=== PATIENT | female | born 1955 | race Hispanic/Latino ===

== ENCOUNTER 2018-12-25 22:15 | Emergency (ER) | payer MEDICARE, BC ==
[2018-12-25] MEDS ORDERED: METOCLOPRAMIDE 10 MG TAB PO ONE (22:35)
--- NOTE | 2018-12-25 22:39 | Emergency Department Report ---
ED General Adult HPI - General Chief complaint: Altered Mental Status Stated complaint: AMS Time Seen by Provider: 12/25/18 22:26 Source: patient, EMS ( EMS documentation not available at time of chart dictation ), RN notes reviewed, old records reviewed Mode of arrival: Stretcher Limitations: No Limitations - History of Present Illness Initial comments: This is a 63-year-old female. The patient has a history of reported COPD and is supposed to be on chronic home oxygen therapy. She also has a history of psychiatric disease and hypertension. She is an outpatient psychiatric facility in a voluntary basis, "to get myself right." The patient was seen in this department yesterday for nonspecific symptoms, had an extensive workup, and was subsequently discharged. Today, the patient is sent to the ER by her psychiatric facility for medical clearance. She is not using oxygen at the psychiatric facility as she does not have a tank with her, and she did not tell the psychiatric facility that she is supposed to be on home oxygen. Apparently, she was having episodes of nonsensical speech, headache, hypoxia, and reported unsteady gait. All of the symptoms have resolved at this time, with the exception of mild headache. The patient indicates the headache is not sudden or thunderclap in nature. The headache is not maximal intensity within an hour. There is no vomiting. The patient denies additional complaints. She states that her home oxygen tank is at storage, at her house, in [place], [place] She can't tell me why she did not endorse her need for chronic oxygen therapy with this psychiatric facility. In any event, the patient does not endorse homicidality or suicidality. She denies additional physical pain. She states that she thinks that she can call for facility in the morning and rent oxygen or by oxygen. She is requesting to stay in the ER overnight. Radiation: other Quality: other Consistency: other Improves with: other Worsens with: other - Related Data Home Medications Medication Instructions Recorded Confirmed Last Taken Duloxetine HCl [Cymbalta] 60 mg PO 0800,1700 12/24/18 12/26/18 12/23/18 raNITIdine HCl [Zantac] 150 mg PO BID 12/24/18 12/25/18 12/25/18 08:00 Mirtazapine [Remeron 30mg TAB] 30 mg PO QDAY 09/12/26/18 12/25/18 08:00 Suboxone 2 mg-0.5 mg SL Film 1 mg SL QDAY 12/25/18 12/26/18 12/25/18 08:00 Tizanidine HCl [Zanaflex 4mg CAP] 2 mg PO PRN PRN 12/25/18 12/26/18 12/25/18 08:00 lamoTRIgine [LaMICtal] 100 mg PO QDAY 12/25/18 12/25/18 12/25/18 08:00 Allergies Allergy/AdvReac Type Severity Reaction Status Date / Time No Known Allergies Allergy Verified 12/26/18 00:02 ED Review of Systems ROS: Stated complaint: AMS Other details as noted in HPI Constitutional: denies: fever Eyes: denies: eye discharge ENT: denies: congestion Respiratory: shortness of breath (chronic) Cardiovascular: denies: syncope Gastrointestinal: denies: abdominal pain Genitourinary: other (negative urine yesterday). denies: dysuria Neurological: headache Psychiatric: anxiety. denies: auditory hallucinations, visual hallucinations, homicidal thoughts, suicidal thoughts ED Past Medical Hx - Past Medical History Hx Hypertension: Yes Hx GERD: Yes Hx Psychiatric Treatment: Yes (ANXIETY) Hx Asthma: Yes Hx COPD: Yes Additional medical history: HIGH CHOLESTEROL - Surgical History Additional Surgical History: LAZARO KNEE SURGERY - Social History Smoking Status: Never Smoker Substance Use Type: Other - Medications Home Medications: Home Medications Medication Instructions Recorded Confirmed Last Taken Type Duloxetine HCl [Cymbalta] 60 mg PO 0800,1700 12/24/18 12/26/18 12/23/18 History raNITIdine HCl [Zantac] 150 mg PO BID 12/24/18 12/25/18 12/25/18 08:00 History Mirtazapine [Remeron 30mg TAB] 30 mg PO QDAY 12/25/18 12/26/18 12/25/18 08:00 History Suboxone 2 mg-0.5 mg SL Film 1 mg SL QDAY 12/25/18 12/26/18 12/25/18 08:00 History Tizanidine HCl [Zanaflex 4mg CAP] 2 mg PO PRN PRN 12/25/18 12/26/18 12/25/18 08:00 History lamoTRIgine [LaMICtal] 100 mg PO QDAY 12/25/18 12/25/18 12/25/18 08:00 History ED Physical Exam - General Limitations: No Limitations General appearance: alert, anxious - Head Head exam: Present: atraumatic, normocephalic - Eye Eye exam: Present: normal appearance, EOMI. Absent: nystagmus - ENT ENT exam: Present: normal exam, normal orophraynx, mucous membranes moist, normal external ear exam - Neck Neck exam: Present: normal inspection, full ROM. Absent: tenderness, meningismus - Respiratory Respiratory exam: Present: normal lung sounds bilaterally, decreased breath sounds. Absent: respiratory distress - Cardiovascular Cardiovascular Exam: Present: regular rate, normal rhythm, normal heart sounds. Absent: bradycardia, tachycardia, irregular rhythm, systolic murmur, diastolic murmur, rubs, gallop - GI/Abdominal GI/Abdominal exam: Present: soft. Absent: distended, tenderness, guarding, rebound, rigid, pulsatile mass - Extremities Exam Extremities exam: Present: normal inspection, full ROM, other (2+ pulses noted in the bilateral upper, lower extremities. There is no long bone tenderness. Musculoskeletal compartments are soft. The pelvis is stable.). Absent: pedal edema, joint swelling, calf tenderness - Back Exam Back exam: Present: normal inspection, full ROM. Absent: tenderness, CVA tenderness (R), CVA tenderness (L), paraspinal tenderness, vertebral tenderness - Neurological Exam Neurological exam: Present: alert, oriented X3, normal gait, other (there is no facial droop. The tongue is midline. Extraocular movements are intact b ilaterally. Patient speaking in full complete sentences. Shoulder shrug is intact bilaterally. Hearing is grossly intact bilaterally. Visual acuity intact to finger counting and color perception at a close distance. 5/5 strength 4 extremities. Sensation intact to light touch in 4 extremities.). Absent: motor sensory deficit - Psychiatric Psychiatric exam: Present: anxious. Absent: homicidal ideation, suicidal ideation - Skin Skin exam: Present: warm, dry, intact, normal color. Absent: rash ED Course Vital Signs 12/25/18 12/25/18 12/25/18 22:20 22:35 22:46 Temperature 98.7 F Pulse Rate 87 Respiratory 18 18 Rate Blood Pressure 138/62 Blood Pressure [Right] O2 Sat by Pulse 97 98 Oximetry 09/12/26/18 12/26/18 23:00 00:00 01:00 Temperature Pulse Rate 82 83 80 Respiratory 12 11 L 12 Rate Blood Pressure 117/32 119/49 129/45 Blood Pressure [Right] O2 Sat by Pulse 96 95 94 Oximetry 12/26/18 12/26/18 12/26/18 02:00 03:00 04:00 Temperature Pulse Rate 80 84 Respiratory 13 15 Rate Blood Pressure 126/50 129/43 129/43 Blood Pressure [Right] O2 Sat by Pulse 98 97 92 Oximetry 12/26/18 12/26/18 12/26/18 05:00 06:00 09:02 Temperature Pulse Rate 79 Respiratory 18 Rate Blood Pressure 129/43 129/43 Blood Pressure 116/58 [Right] O2 Sat by Pulse 98 94 95 Oximetry - Reevaluation(s) Reevaluation #1: 12/25/18 23:02 Differential diagnosis, including not limited to: COPD, oxygen dependence, medical clearance Assessment and plan: 63-year-old female, with resolved symptoms, likely secondary to not having her required chronic home oxygen therapy. The patient i s afebrile with reassuring vital signs. He is clinically sober at this time. She walks with a steady gait. Had extensive laboratory study and negative CAT scan of the brain yesterday. The symptoms that were documented do not appear to be present at this time, there'll likely be expected natural history of the patient not having the oxygen that she requires. We will obtain appropriate screening laboratory studies, EKG, x-ray of the chest. K Cameron consult has been requested. Patient does not meet criteria for hospitalization. She is not meet criteria for involuntary psychiatric hold. Case management will need to figure out and coordinate the way to safely discharge the patient with home oxygen. Reevaluation #2: 12/26/18 00:00 Patient resting comfortably, and in no acute distress. Screening laboratory studies unremarkable. The patient does not appear to have an emergent medical condition at this time. Most of her home medications have been continued. Case management evaluation is pending. Reevaluation #3: 12/26/18 01:26 No acute distress. Resting comfortably. Outpatient medications reconciled and continued as appropriate. Care will be transferred to the oncoming ER physician, Dr. Steve Beaulieu Patient will need to be signed out to the morning physician, who will then need to follow up with case management ED Medical Decision Making - Lab Data Result diagrams: 12/25/18 22:44 Vital Signs 12/25/18 22:20 Temperature 98.7 F Pulse Rate 87 Respiratory 18 Rate Blood Pressure 138/62 O2 Sat by Pulse 97 Oximetry - EKG Data -: EKG Interpreted by Il EKG shows normal: sinus rhythm Rate: normal - EKG Data When compared to previous EKG there are: previous EKG unavailable 12/25/18 23:03 There is no prior EKG available for comparison. This is a sinus rhythm, 81 bpm, QTC 480 ms, there is low voltage, there is motion artifact, this EKG is abnormal, the EKG is not consistent with ST elevation myocardial infarction. - Radiology Data Radiology results: report reviewed, image reviewed Referring Physician: MILKA MO Patient Name: CHAU FERGUSON Date of : 1955 Sex: Female Report Date: 2018-12-24 Report Status: [place] [address] Cat Scan Report Signed Patient: CHAU FERGUSON MR#: [id number] : 1955 Acct:[id number] Age/Sex: 63 / F ADM Date: 12/24/18 Loc: ED Attending Dr: Ordering Physician: MILKA MO MD Date of Service: 12/24/18 Procedure(s): CT head/brain wo con Accession Number(s): [id number] cc: MILKA MO MD CT head without contrast INDICATION : headache. Generalized headache for the past 12 hours TECHNIQUE: Axial imaging performed from the skull apex through the skull base without the use of contrast. All CT scans at this location are performed using CT dose reduction for ALARA by means of automated exposure control. COMPARISON: None FINDINGS: Parenchyma: No acute intracranial hemorrhage or parenchymal abnormality. A tiny lacunar infarct is seen near the left frontal horn. There is right basal ganglia calcification. Ventricles: Ventricles are normal in size and appear symmetric. Soft tissues: Soft tissues including the orbits appear normal. Bones: No acute osseous abnormality. Sinuses: Sinuses and mastoid air cells are clear. IMPRESSION: No acute abnormality. Signer Name: Tenzin Farris MD Signed: 12/24/2018 3:25 PM Workstation Name: [id number] Transcribed By: JW Dictated By: Tenzin Farris MD Electronically Authenticated By: Tenzin Farris MD Signed Date/Time: 12/24/18 1525 Print Report Referring Physician: ALPA CRONIN Patient Name: CHAU FERGUSON Date of : 1955 Sex: Female Report Date: 2018-12-25 Report Status: Finalized Findings [facility] [address] [place] [address] XRay Report Signed Patient: CHAU FERGUSON MR#: [id number] : 1955 Acct:[id number] Age/Sex: 63 / F ADM Date: 12/25/18 Loc: ED Attending Dr: Ordering Physician: ALPA CRONIN MD Date of Service: 12/25/18 Procedure(s): XR chest 1V ap Accession Number(s): [id number] cc: ALPA CRONIN MD Fluoro Time In Minutes: CHEST 1 VIEW 12/25/2018 10:44 PM INDICATION / CLINICAL INFORMATION: sob. COMPARISON: None available. FINDINGS: SUPPORT DEVICES: None. HEART / MEDIASTINUM: Normal heart size. Atherosclerosis in the thoracic aorta. LUNGS / PLEURA: No significant pulmonary or pleural abnormality. No pneumoth orax. ADDITIONAL FINDINGS: No significant additional findings. IMPRESSION: 1. No acute findings. Signer Name: Cristian Dudley MD Signed: 12/25/2018 11:05 PM Workstation Name: [id number] Transcribed By: DANA Dictated By: Cristian Dudley MD Electronically Authenticated By: Cristian Dudley MD Signed Date/Time: 12/25/18 2305 Critical care attestation.: If time is entered above; I have spent that time in minutes in the direct care of this critically ill patient, excluding procedure time. ED Disposition Clinical Impression: Psychiatric disorder, COPD (chronic obstructive pulmonary disease), Case management patient Disposition: DC/TX-70 ANOTHER TYPE HLTHCARE Is pt being admited?: No Does the pt Need Aspirin: No Condition: Good Instructions: Chronic Obstructive Pulmonary Disease (ED) Additional Instructions: Continue current outpatient medications. Follow-up with her primary care doctor within the next week. Follow up with her senior civil engineer within the next 2 weeks. Return to the emergency room right away with new, worsening or different symptoms not present on the initial emergency room evaluation. Referrals: [facility] [Provider Group] - 3-5 Days [facility] [Provider Group] - 3-5 Days
--- NOTE | 2018-12-25 23:09 | XRay Report ---
CHEST 1 VIEW 12/25/2018 10:44 PM INDICATION / CLINICAL INFORMATION: sob. COMPARISON: None available. FINDINGS: SUPPORT DEVICES: None. HEART / MEDIASTINUM: Normal heart size. Atherosclerosis in the thoracic aorta. LUNGS / PLEURA: No significant pulmonary or pleural abnormality. No pneumothorax. ADDITIONAL FINDINGS: No significant additional findings. IMPRESSION: 1. No acute findings. Signer Name: Cristian Dudley MD Signed: 12/25/2018 11:05 PM Workstation Name: [id number]
[2018-12-25 23:20] LABS: BUN/Creatinine Ratio 8; Blood Urea Nitrogen 6 mg/dL (7-17); Calcium 8.7 mg/dL (8.4-10.2); Hemolysis Index 3
[2018-12-25] MEDS ORDERED: TIZANIDINE HCL 2 MG PO PRN (23:58)
[2018-12-26] MEDS ORDERED: tiZANidine TAB 4 MG TAB PO PRN (00:07)
[2018-12-26] MEDS ORDERED: METOCLOPRAMIDE 10 MG TAB ONE (02:27)
[2018-12-26] MEDS ORDERED: NON-FORMULARY EACH (Duloxetine Hcl [Cymbalta] 60 MG) PO SCH (08:00)
[2018-12-26 09:03] VITALS: BP 116/58
[2018-12-26] MEDS ORDERED: lamoTRIgine 100 MG TAB PO SCH (10:00)
[2018-12-26] MEDS ORDERED: NON-FORMULARY EACH (Ranitidine Hcl [Zantac] 150 MG) PO SCH (10:00)
[2018-12-26] MEDS ORDERED: FAMOTIDINE 20 MG TAB PO SCH (10:00)
[2018-12-26] MEDS ORDERED: DULoxetine 30 MG CAP PO SCH (12:00)
[2018-12-26] MEDS ORDERED: MIRTAZAPINE 30 MG TAB PO SCH (22:00)
== END 2018-12-26 15:45 | disposition other institution (70) ==
LOC: ED 22:15
DX: J44.9 Chronic obstructive pulmonary disease, unspecified (principal); F99 Mental disorder, not otherwise specified; I10 Essential (primary) hypertension; K21.9 Gastro-esophageal reflux disease without esophagitis; F41.9 Anxiety disorder, unspecified; J45.909 Unspecified asthma, uncomplicated; E78.00 Pure hypercholesterolemia, unspecified; Z98.890 Other specified postprocedural states; Z79.899 Other long term (current) drug therapy
CPT/HCPCS: 36415; 71045; 80048; 80178; 82550; 83735; 93005; 93010; 99285; J3246; 80320; G0480

== ENCOUNTER 2019-02-06 20:19 | Emergency (ER) | payer MEDICARE ==
[2019-02-06 22:57] LABS: Basophils # (Auto) 0.1 K/mm3 (0.0-0.1); Basophils % (Auto) 1.1 % (0.0-1.8); Eosinophils # (Auto) 0.7 K/mm3 (0.0-0.4); Eosinophils % (Auto) 5.7 % (0.0-4.3); Hematocrit 36.4 % (30.3-42.9); Hemoglobin 11.7 gm/dl (10.1-14.3); Lymphocytes # (Auto) 2.7 K/mm3 (1.2-5.4); Lymphocytes % (Auto) 21.3 % (13.4-35.0); Mean Corpuscular HGB Conc 32 % (30-34); Mean Corpuscular Volume 76 fl (79-97); Monocytes # (Auto) 0.7 K/mm3 (0.0-0.8); Monocytes % (Auto) 5.7 % (0.0-7.3); Platelet Count 397 K/mm3 (140-440); Red Blood Count 4.79 M/mm3 (3.65-5.03)
[2019-02-06 23:00] LABS: INR 0.92 (0.87-1.13)
[2019-02-06 23:01] LABS: Partial Thromboplastin Time 28.8 Sec. (24.2-36.6)
--- NOTE | 2019-02-06 23:05 | XRay Report ---
CHEST 1 VIEW INDICATION / CLINICAL INFORMATION: Dyspnea. COMPARISON: 12/25/2018 FINDINGS: SUPPORT DEVICES: None. HEART / MEDIASTINUM: No significant abnormality. LUNGS / PLEURA: Both lungs are mildly hyperinflated with mild chronic appearing interstitial lung dis ease. No convincing evidence for acute superimposed disease. No pneumothorax. ADDITIONAL FINDINGS: No significant additional findings. IMPRESSION: 1. No acute findings. No interval change. Signer Name: Shira Gilliland MD Signed: 02/06/2019 11:01 PM Workstation Name: [id number]
[2019-02-06 23:24] LABS: Alanine Aminotransferase 8 units/L (7-56); Albumin 4.2 g/dL (3.9-5); BUN/Creatinine Ratio 8; Blood Urea Nitrogen 8 mg/dL (7-17); Calcium 9.5 mg/dL (8.4-10.2); Hemolysis Index 4
[2019-02-06 23:28] LABS: Bacteria,Urine 2+ /HPF (Negative); Bilirubin,Urine NEG (Negative); Blood,Urine SM (Negative); Color,Urine Yellow (Yellow); Mucus,Urine FEW /HPF; Protein,Urine <15 mg/dL mg/dL (Negative); Urobilinogen,Urine < 2.0 mg/dL (<2.0)
[2019-02-07] MEDS ORDERED: NAPROXEN 500 MG TAB PO ONE (00:32)
[2019-02-07] MEDS ORDERED: diphenhydrAMINE 25 MG/10 ML ORAL LIQUID PO ONE (00:32)
[2019-02-07 01:33] VITALS: BP 125/55
--- NOTE | 2019-02-07 01:49 | Emergency Department Report ---
ED General Adult HPI - General Chief complaint: Dyspnea/Respdistress Stated complaint: CORETTA,BODY PAIN, DIZZINESS Time Seen by Provider: 02/07/19 00:08 Source: patient Mode of arrival: Ambulatory Limitations: No Limitations - History of Present Illness Initial comments: The patient presents to the emergency department with a chief complaint of diffuse body pain and occasional dizziness for the last 2 weeks. Patient denies any trauma or other injuries. Patient states at times when she stands up she gets dizzy but she thinks this is due to her not drinking enough fluids. Patient denies any chest pain, shortness breath, or headache. -: unknown Severity scale (0 -10): 10 Quality: aching Consistency: constant Improves with: none Worsens with: none Associated Symptoms: denies other symptoms Treatments Prior to Arrival: none - Related Data Home Medications Medication Instructions Recorded Confirmed Last Taken Duloxetine HCl [Cymbalta] 60 mg PO 0800,1700 12/24/18 12/26/18 12/23/18 raNITIdine HCl [Zantac] 150 mg PO BID 12/24/18 12/25/18 12/25/18 08:00 Mirtazapine [Remeron 30mg TAB] 30 mg PO QDAY 12/25/18 12/26/18 12/25/18 08:00 Suboxone 2 mg-0.5 mg SL Film 1 mg SL QDAY 12/25/18 12/26/18 12/25/18 08:00 Tizanidine HCl [Zanaflex 4mg CAP] 2 mg PO PRN PRN 12/25/18 12/26/18 12/25/18 08:00 lamoTRIgine [LaMICtal] 100 mg PO QDAY 12/25/18 12/25/18 12/25/18 08:00 Previous Rx's Medication Instructions Recorded Last Taken Type Sulfamethoxazole/Trimethoprim 1 each PO BID #14 tablet 02/07/19 Unknown Rx [Bactrim DS TAB] Allergies Allergy/AdvReac Type Severity Reaction Status Date / Time No Known Allergies Allergy Verified 12/26/18 00:02 ED Review of Systems ROS: Stated complaint: CORETTA,BODY PAIN, DIZZINESS Other details as noted in HPI Comment: All other systems reviewed and negative Constitutional: denies: chills, fever Eyes: denies: eye pain, eye discharge, vision change ENT: denies: ear pain, throat pain Respiratory: denies: cough, shortness of breath, wheezing Cardiovascular: denies: chest pain, palpitations Endocrine: no symptoms reported Gastrointestinal: denies: abdominal pain, nausea, diarrhea Genitourinary: denies: urgency, dysuria, discharge Musculoskeletal: denies: back pain, joint swelling, arthralgia Skin: denies: rash, lesions Neurological: denies: headache, weakness, paresthesias Psychiatric: denies: anxiety, depression Hematological/Lymphatic: denies: easy bleeding, easy bruising ED Past Medical Hx - Past Medical History Hx Hypertension: Yes Hx GERD: Yes Hx Psychiatric Treatment: Yes (ANXIETY) Hx Asthma: Yes Hx COPD: Yes Additional medical history: HIGH CHOLESTEROL - Surgical History Additional Surgical History: LAZARO KNEE SURGERY - Social History Smoking Status: Never Smoker Substance Use Type: None - Medications Home Medications: Home Medications Medication Instructions Recorded Confirmed Last Taken Type Duloxetine HCl [Cymbalta] 60 mg PO 0800,1700 12/24/18 12/26/18 12/23/18 History raNITIdine HCl [Zantac] 150 mg PO BID 12/24/18 12/25/18 12/25/18 08:00 History Mirtazapine [Remeron 30mg TAB] 30 mg PO QDAY 12/25/18 12/26/18 12/25/18 08:00 History Suboxone 2 mg-0.5 mg SL Film 1 mg SL QDAY 12/25/18 12/26/18 12/25/18 08:00 History Tizanidine HCl [Zanaflex 4mg CAP] 2 mg PO PRN PRN 12/25/18 12/26/18 12/25/18 08:00 History lamoTRIgine [LaMICtal] 100 mg PO QDAY 12/25/18 12/25/18 12/25/18 08:00 History Sulfamethoxazole/Trimethoprim 1 each PO BID #14 tablet 02/07/19 Unknown Rx [Bactrim DS TAB] ED Physical Exam - General Limitations: No Limitations General appearance: alert, in no apparent distress - Head Head exam: Present: atraumatic, normocephalic - Eye Eye exam: Present: normal appearance, PERRL, EOMI - ENT ENT exam: Present: mucous membranes moist - Neck Neck exam: Present: normal inspection - Respiratory Respiratory exam: Present: normal lung sounds bilaterally. Absent: respiratory distress - Cardiovascular Cardiovascular Exam: Present: regular rate, normal rhythm. Absent: systolic mu rmur, diastolic murmur, rubs, gallop - GI/Abdominal GI/Abdominal exam: Present: soft, normal bowel sounds. Absent: distended, tenderness - Extremities Exam Extremities exam: Present: normal inspection - Back Exam Back exam: Present: normal inspection - Neurological Exam Neurological exam: Present: alert, oriented X3, CN II-XII intact. Absent: motor sensory deficit - Psychiatric Psychiatric exam: Present: normal affect, normal mood - Skin Skin exam: Present: warm, dry, intact, normal color. Absent: rash ED Course Vital Signs 02/06/19 02/07/19 02/07/19 20:34 00:24 00:31 Temperature 98.1 F Pulse Rate 76 86 81 Respiratory 18 17 Rate Blood Pressure 125/50 134/62 O2 Sat by Pulse 98 95 Oximetry 02/07/19 02/07/19 01:00 01:30 Temperature Pulse Rate 73 Respiratory 17 18 Rate Blood Pressure 125/55 O2 Sat by Pulse 100 Oximetry ED Medical Decision Making - Lab Data Result diagrams: 02/06/19 22:29 02/06/19 22:29 Lab Results 02/06/19 02/06/19 02/06/19 Range/Units 22:29 22:29 22:29 WBC 12.5 H (4.5-11.0) K/mm3 RBC 4.79 (3.65-5.03) M/mm3 Hgb 11.7 (10.1-14.3) gm/dl Hct 36.4 (30.3-42.9) % MCV 76 L (79-97) fl MCH 24 L (28-32) pg MCHC 32 (30-34) % RDW 20.0 H (13.2-15.2) % Plt Count 397 (140-440) K/mm3 Lymph % (Auto) 21.3 (13.4-35.0) % [place] % (Auto) 5.7 (0.0-7.3) % Eos % (Auto) 5.7 H (0.0-4.3) % Baso % (Auto) 1.1 (0.0-1.8) % Lymph # 2.7 (1.2-5.4) K/mm3 [place] # 0.7 (0.0-0.8) K/mm3 Eos # 0.7 H (0.0-0.4) K/mm3 Baso # 0.1 (0.0-0.1) K/mm3 Seg Neutrophils % 66.2 (40.0-70.0) % Seg Neutrophils # 8.3 H (1.8-7.7) K/mm3 PT 12.3 (12.2-14.9) Sec. INR 0.92 (0.87-1.13) APTT 28.8 (24.2-36.6) Sec. Sodium 135 L (137-145) mmol/L Potassium 3.5 L (3.6-5.0) mmol/L Chloride 98.4 (98-107) mmol/L Carbon Dioxide 25 (22-30) mmol/L Anion Gap 15 mmol/L BUN 8 (7-17) mg/dL Creatinine 1.0 (0.7-1.2) mg/dL Estimated GFR 56 ml/min BUN/Creatinine Ratio 8 % Glucose 84 (65-100) mg/dL Calcium 9.5 (8.4-10.2) mg/dL Total Bilirubin 0.20 (0.1-1.2) mg/dL AST 14 (5-40) units/L ALT 8 (7-56) units/L Alkaline Phosphatase 113 (35-129) units/L Troponin T < 0.010 (0.00-0.029) ng/mL Total Protein 7.2 (6.3-8.2) g/dL Albumin 4.2 (3.9-5) g/dL Albumin/Globulin Ratio 1.4 % Urine Color (Yellow) Urine Turbidity (Clear) Urine pH (5.0-7.0) Ur Specific [place] (1.003-1.030) Urine Protein (Negative) mg/dL Urine Glucose (UA) (Negative) mg/dL Urine Ketones (Negative) mg/dL Urine Blood (Negative) Urine Nitrite (Negative) Urine Bilirubin (Negative) Urine Urobilinogen (<2.0) mg/dL Ur Leukocyte Esterase (Negative) Urine WBC (Auto) (0.0-6.0) /HPF Urine RBC (Auto) (0.0-6.0) /HPF U Epithel Cells (Auto) (0-13.0) /HPF Urine Bacteria (Auto) (Negative) /HPF Urine Mucus /HPF 02/06/19 Range/Units Unknown WBC (4.5-11.0) K/mm3 RBC (3.65-5.03) M/mm3 Hgb (10.1-14.3) gm/dl Hct (30.3-42.9) % MCV (79-97) fl MCH (28-32) pg MCHC (30-34) % RDW (13.2-15.2) % Plt Count (140-440) K/mm3 Lymph % (Auto) (13.4-35.0) % [place] % (Auto) (0.0-7.3) % Eos % (Auto) (0.0-4.3) % Baso % (Auto) (0.0-1.8) % Lymph # (1.2-5.4) K/mm3 [place] # (0.0-0.8) K/mm3 Eos # (0.0-0.4) K/mm3 Baso # (0.0-0.1) K/mm3 Seg Neutrophils % (40.0-70.0) % Seg Neutrophils # (1.8-7.7) K/mm3 PT (12.2-14.9) Sec. INR (0.87-1.13) APTT (24.2-36.6) Sec. Sodium (137-145) mmol/L Potassium (3.6-5.0) mmol/L Chloride (98-107) mmol/L Carbon Dioxide (22-30) mmol/L Anion Gap mmol/L BUN (7-17) mg/dL Creatinine (0.7-1.2) mg/dL Estimated GFR ml/min BUN/Creatinine Ratio % Glucose (65-100) mg/dL Calcium (8.4-10.2) mg/dL Total Bilirubin (0.1-1.2) mg/dL AST (5-40) units/L ALT (7-56) units/L Alkaline Phosphatase (35-129) units/L Troponin T (0.00-0.029) ng/mL Total Protein (6.3-8.2) g/dL Albumin (3.9-5) g/dL Albumin/Globulin Ratio % Urine Color Yellow (Yellow) Urine Turbidity Slightly-cloudy (Clear) Urine pH 6.0 (5.0-7.0) Ur Specific [place] 1.009 (1.003-1.030) Urine Protein <15 mg/dl (Negative) mg/dL Urine Glucose (UA) Neg (Negative) mg/dL Urine Ketones Neg (Negative) mg/dL Urine Blood Sm (Negative) Urine Nitrite Neg (Negative) Urine Bilirubin Neg (Negative) Urine Urobilinogen < 2.0 (<2.0) mg/dL Ur Leukocyte Esterase Lg (Negative) Urine WBC (Auto) 36.0 H (0.0-6.0) /HPF Urine RBC (Auto) 3.0 (0.0-6.0) /HPF U Epithel Cells (Auto) 5.0 (0-13.0) /HPF Urine Bacteria (Auto) 2+ (Negative) /HPF Urine Mucus Few /HPF - Medical Decision Making Discussed results with patient Critical care attestation.: If time is entered above; I have spent that time in minutes in the direct care of this critically ill patient, excluding procedure time. ED Disposition Clinical Impression: UTI (urinary tract infection) Disposition: TO HOME OR SELFCARE Is pt being admited?: No Does the pt Need Aspirin: No Condition: Stable Instructions: Urinary Tract Infection in Women (ED) Additional Instructions: return if worse Prescriptions: Sulfamethoxazole/Trimethoprim [Bactrim DS TAB] 1 each PO BID #14 tablet Referrals: PRIMARY CAREMD [Primary Care Provider] - 3-5 Days [facility] [Provider Group] - 3-5 Days [facility] [Provider Group] - 3-5 Days MILKA STERN MD [Staff Physician] - 3-5 Days Time of Disposition: 01:48
== END 2019-02-07 02:05 | disposition home or self-care (01) ==
LOC: ED 20:19
DX: N39.0 Urinary tract infection, site not specified (principal); I10 Essential (primary) hypertension; K21.9 Gastro-esophageal reflux disease without esophagitis; F41.9 Anxiety disorder, unspecified; J44.9 Chronic obstructive pulmonary disease, unspecified; E78.00 Pure hypercholesterolemia, unspecified; Z98.890 Other specified postprocedural states; Z79.899 Other long term (current) drug therapy
CPT/HCPCS: 36415; 71045; 80053; 81001; 84484; 85025; 85610; 85730; 87086; 93005; 93010; 99284; Q0163

== ENCOUNTER 2019-05-27 10:29 | Emergency (ER) | payer MEDICARE ==
[2019-05-27 12:29] LABS: Hematocrit 38.4 % (30.3-42.9); Hemoglobin 12.4 gm/dl (10.1-14.3); Mean Corpuscular HGB Conc 32 % (30-34); Mean Corpuscular Volume 84 fl (79-97); Platelet Count 345 K/mm3 (140-440); Red Blood Count 4.58 M/mm3 (3.65-5.03); Red Cell Distribution Width 15.8 % (13.2-15.2)
[2019-05-27 13:24] LABS: Basophils % (Manual) 0 % (0.0-1.8); Eosinophils % (Manual) 0 % (0.0-4.3); Platelet Estimate Consistent w Auto; RBC Morphology Normal; Total Cells Counted 100
[2019-05-27 13:37] LABS: BUN/Creatinine Ratio 9; Blood Urea Nitrogen 7 mg/dL (7-17); Calcium 9.5 mg/dL (8.4-10.2); Hemolysis Index 6
[2019-05-27 13:38] LABS: Benzodiazepines Screen,Urine PRESUMPTIVE NEGATIVE; Cannabinoid Screen,Urine PRESUMPTIVE NEGATIVE; Cocaine Screen,Urine PRESUMPTIVE NEGATIVE; Methadone Screen,Urine PRESUMPTIVE NEGATIVE; Opiate Screen,Urine PRESUMPTIVE NEGATIVE
--- NOTE | 2019-05-27 13:44 | Event Note ---
Date: 05/27/19 Medical screening note: 63-year-old female with reported history of possible overdose. Patient at the moment is sleeping on her stretcher, breathing spontaneously, protecting her airway, but is difficult to arouse. There is no history of antecedent trauma. Placed patient on quality assurance intern, ER hold, screening laboratory studies, x-ray the chest, psychiatric consultation. Vital Signs 05/27/19 05/27/19 10:35 13:05 Temperature 99.5 F Pulse Rate 107 H Respiratory 12 14 Rate Blood Pressure 115/53 [Right] O2 Sat by Pulse 92 Oximetry Lab Results 05/27/19 05/27/19 05/27/19 Range/Units 11:30 11:30 11:30 WBC (4.5-11.0) K/mm3 RBC (3.65-5.03) M/mm3 Hgb (10.1-14.3) gm/dl Hct (30.3-42.9) % MCV (79-97) fl MCH (28-32) pg MCHC (30-34) % RDW (13.2-15.2) % Plt Count (140-440) K/mm3 Baso % (Auto) Add Manual Diff Total Counted Seg Neuts % (Manual) (40.0-70.0) % Band Neutrophils % % Lymphocytes % (Manual) (13.4-35.0) % Reactive Lymphs % (Man) % Monocytes % (Manual) (0.0-7.3) % Eosinophils % (Manual) (0.0-4.3) % Basophils % (Manual) (0.0-1.8) % Metamyelocytes % % Myelocytes % % Promyelocytes % % Blast Cells % % Nucleated RBC % Seg Neutrophils # Man (1.8-7.7) K/mm3 Band Neutrophils # K/mm3 Lymphocytes # (Manual) (1.2-5.4) K/mm3 Abs React Lymphs (Man) K/mm3 Monocytes # (Manual) (0.0-0.8) K/mm3 Eosinophils # (Manual) (0.0-0.4) K/mm3 Basophils # (Manual) (0.0-0.1) K/mm3 Metamyelocytes # K/mm3 Myelocytes # K/mm3 Promyelocytes # K/mm3 Blast Cells # K/mm3 WBC Morphology Hypersegmented Neuts Hyposegmented Neuts Hypogranular Neuts Smudge Cells Toxic Granulation Toxic Vacuolation Dohle Bodies Pelger-Huet Anomaly Natan Rods Platelet Estimate Clumped Platelets Plt Clumps, EDTA Large Platelets Giant Platelets Platelet Satelliting Plt Morphology Comment RBC Morphology Dimorphic RBCs Polychromasia Hypochromasia Poikilocytosis Anisocytosis Microcytosis Macrocytosis Spherocytes Pappenheimer Bodies Sickle Cells Target Cells Tear Drop Cells Ovalocytes Helmet Cells [place] Bodies [employer] Rings Alexia Cells Bite Cells Crenated Cell Elliptocytes Acanthocytes (Spur) Rouleaux Hemoglobin C Crystals Schistocytes Malaria parasites [place] Bodies Hem Pathologist Commnt Sodium 142 (137-145) mmol/L Potassium 3.5 L (3.6-5.0) mmol/L Chloride 101.7 (98-107) mmol/L Carbon Dioxide 22 (22-30) mmol/L Anion Gap 22 mmol/L BUN 7 (7-17) mg/dL Creatinine 0.8 (0.7-1.2) mg/dL Estimated GFR > 60 ml/min BUN/Creatinine Ratio 9 % Glucose 151 H (65-100) mg/dL Calcium 9.5 (8.4-10.2) mg/dL Magnesium (1.7-2.3) mg/dL Total Creatine Kinase (30-135) units/L Salicylates < 0.3 L (2.8-20.0) mg/dL Urine Opiates Screen Urine Methadone Screen Acetaminophen < 5.0 L (10.0-30.0) ug/mL Ur Barbiturates Screen Ur Phencyclidine Scrn U Benzodiazepines Scrn Urine Cocaine Screen U Marijuana (THC) Screen Plasma/Serum Alcohol (0-0.07) % 05/27/19 05/27/19 05/27/19 Range/Units 11:30 11:30 13:05 WBC 6.7 (4.5-11.0) K/mm3 RBC 4.58 (3.65-5.03) M/mm3 Hgb 12.4 (10.1-14.3) gm/dl Hct 38.4 (30.3-42.9) % MCV 84 (79-97) fl MCH 27 L (28-32) pg MCHC 32 (30-34) % RDW 15.8 H (13.2-15.2) % Plt Count 345 (140-440) K/mm3 Baso % (Auto) Finisher Card Tender Add Manual Diff Complete Total Counted 100 Seg Neuts % (Manual) 90.0 H (40.0-70.0) % Band Neutrophils % 0 % Lymphocytes % (Manual) 8.0 L (13.4-35.0) % Reactive Lymphs % (Man) 0 % Monocytes % (Manual) 2.0 (0.0-7.3) % Eosinophils % (Manual) 0 (0.0-4.3) % Basophils % (Manual) 0 (0.0-1.8) % Metamyelocytes % 0 % Myelocytes % 0 % Promyelocytes % 0 % Blast Cells % 0 % Nucleated RBC % Not Reportable Seg Neutrophils # Man 6.0 (1.8-7.7) K/mm3 Band Neutrophils # 0.0 K/mm3 Lymphocytes # (Manual) 0.5 L (1.2-5.4) K/mm3 Abs React Lymphs (Man) 0.0 K/mm3 Monocytes # (Manual) 0.1 (0.0-0.8) K/mm3 Eosinophils # (Manual) 0.0 (0.0-0.4) K/mm3 Basophils # (Manual) 0.0 (0.0-0.1) K/mm3 Metamyelocytes # 0.0 K/mm3 Myelocytes # 0.0 K/mm3 Promyelocytes # 0.0 K/mm3 Blast Cells # 0.0 K/mm3 WBC Morphology Not Reportable Hypersegmented Neuts Not Reportable Hyposegmented Neuts Not Reportable Hypogranular Neuts Not Reportable Smudge Cells Not Reportable Toxic Granulation Not Reportable Toxic Vacuolation Not Reportable Dohle Bodies Not Reportable Pelger-Huet Anomaly Not Reportable Natan Rods Not Reportable Platelet Estimate Consistent w auto Clumped Platelets Not Reportable Plt Clumps, EDTA Not Reportable Large Platelets Not Reportable Giant Platelets Not Reportable Platelet Satelliting Not Reportable Plt Morphology Comment Not Reportable RBC Morphology Normal Dimorphic RBCs Not Reportable Polychromasia Not Reportable Hypochromasia Not Reportable Poikilocytosis Not Reportable Anisocytosis Not Reportable Microcytosis Not Reportable Macrocytosis Not Reportable Spherocytes Not Reportable Pappenheimer Bodies Not Reportable Sickle Cells Not Reportable Target Cells Not Reportable Tear Drop Cells Not Reportable Ovalocytes Not Reportable Helmet Cells Not Reportable [place] Bodies Not Reportable [employer] Rings Not Reportable [place] Cells Not Reportable Bite Cells Not Reportable Crenated Cell Not Reportable Elliptocytes Not Reportable Acanthocytes (Spur) Not Reportable Rouleaux Not Reportable Hemoglobin C Crystals Not Reportable Schistocytes Not Reportable Malaria parasites Not Reportable [place] Bodies Not Reportable Hem Pathologist Commnt No Sodium (137-145) mmol/L Potassium (3.6-5.0) mmol/L Chloride (98-107) mmol/L Carbon Dioxide (22-30) mmol/L Anion Gap mmol/L BUN (7-17) mg/dL Creatinine (0.7-1.2) mg/dL Estimated GFR ml/min BUN/Creatinine Ratio % Glucose (65-100) mg/dL Calcium (8.4-10.2) mg/dL Magnesium (1.7-2.3) mg/dL Total Creatine Kinase (30-135) units/L Salicylates (2.8-20.0) mg/dL Urine Opiates Screen Presumptive negative Urine Methadone Screen Presumptive negative Acetaminophen (10.0-30.0) ug/mL Ur Barbiturates Screen Presumptive negative Ur Phencyclidine Scrn Presumptive negative U Benzodiazepines Scrn Presumptive negative Urine Cocaine Screen Presumptive negative U Marijuana (THC) Screen Presumptive negative Plasma/Serum Alcohol < 0.01 (0-0.07) % 05/27/19 Range/Units Unknown WBC (4.5-11.0) K/mm3 RBC (3.65-5.03) M/mm3 Hgb (10.1-14.3) gm/dl Hct (30.3-42.9) % MCV (79-97) fl MCH (28-32) pg MCHC (30-34) % RDW (13.2-15.2) % Plt Count (140-440) K/mm3 Baso % (Auto) Add Manual Diff Total Counted Seg Neuts % (Manual) (40.0-70.0) % Band Neutrophils % % Lymphocytes % (Manual) (13.4-35.0) % Reactive Lymphs % (Man) % Monocytes % (Manual) (0.0-7.3) % Eosinophils % (Manual) (0.0-4.3) % Basophils % (Manual) (0.0-1.8) % Metamyelocytes % % Myelocytes % % Promyelocytes % % Blast Cells % % Nucleated RBC % Seg Neutrophils # Man (1.8-7.7) K/mm3 Band Neutrophils # K/mm3 Lymphocytes # (Manual) (1.2-5.4) K/mm3 Abs React Lymphs (Man) K/mm3 Monocytes # (Manual) (0.0-0.8) K/mm3 Eosinophils # (Manual) (0.0-0.4) K/mm3 Basophils # (Manual) (0.0-0.1) K/mm3 Metamyelocytes # K/mm3 Myelocytes # K/mm3 Promyelocytes # K/mm3 Blast Cells # K/mm3 WBC Morphology Hypersegmented Neuts Hyposegmented Neuts Hypogranular Neuts Smudge Cells Toxic Granulation Toxic Vacuolation Dohle Bodies Pelger-Huet Anomaly Natan Rods Platelet Estimate Clumped Platelets Plt Clumps, EDTA Large Platelets Giant Platelets Platelet Satelliting Plt Morphology Comment RBC Morphology Dimorphic RBCs Polychromasia Hypochromasia Poikilocytosis Anisocytosis Microcytosis Macrocytosis Spherocytes Pappenheimer Bodies Sickle Cells Target Cells Tear Drop Cells Ovalocytes Helmet Cells [place] Bodies [employer] Rings [place] Cells Bite Cells Crenated Cell Elliptocytes Acanthocytes (Spur) Rouleaux Hemoglobin C Crystals Schistocytes Malaria parasites [place] Bodies Hem Pathologist Commnt Sodium (137-145) mmol/L Potassium (3.6-5.0) mmol/L Chloride (98-107) mmol/L Carbon Dioxide (22-30) mmol/L Anion Gap mmol/L BUN (7-17) mg/dL Creatinine (0.7-1.2) mg/dL Estimated GFR ml/min BUN/Creatinine Ratio % Glucose (65-100) mg/dL Calcium (8.4-10.2) mg/dL Magnesium 2.00 (1.7-2.3) mg/dL Total Creatine Kinase 198 H (30-135) units/L Salicylates (2.8-20.0) mg/dL Urine Opiates Screen Urine Methadone Screen Acetaminophen (10.0-30.0) ug/mL Ur Barbiturates Screen Ur Phencyclidine Scrn U Benzodiazepines Scrn Urine Cocaine Screen U Marijuana (THC) Screen Plasma/Serum Alcohol (0-0.07) %
[2019-05-27 13:51] LABS: Bacteria,Urine 1+ /HPF (Negative); Bilirubin,Urine NEG (Negative); Blood,Urine NEG (Negative); Color,Urine Yellow (Yellow); Mucus,Urine FEW /HPF; Protein,Urine <15 mg/dL mg/dL (Negative); Urobilinogen,Urine < 2.0 mg/dL (<2.0)
[2019-05-27 14:11] LABS: Amphetamine Screen,Urine PRESUMPTIVE POSITIVE
--- NOTE | 2019-05-27 14:30 | XRay Report ---
CHEST 1 VIEW INDICATION: od. COMPARISON: 02/06/2019 FINDINGS: Support devices: None. Heart: Within normal limits. Pulmonary vasculature: Central pulmonary vessels are increased in size and indistinct. Lungs/Pleura: Mild left basal opacification is not significantly changed compared to previous exams. The lungs are otherwise clear. No pleural effusion. No pneumothorax. Additional findings: None. IMPRESSION: 1. Central vascular congestion and no other acute finding. 2. Chronic left lower lobe atelectasis vs scar. Signer Name: Poli Blackman MD Signed: 05/27/2019 2:25 PM Workstation Name: [id number]
[2019-05-27] MEDS ORDERED: SODIUM CHLORIDE 0.9% 1000 ML 1,000 ML IV ONE (15:30)
--- NOTE | 2019-05-27 15:42 | Emergency Department Report ---
ED General Adult HPI - General Chief complaint: Altered Mental Status Stated complaint: SHAKY Time Seen by Provider: 05/27/19 12:42 Source: family Mode of arrival: Wheelchair Limitations: Altered Mental Status - History of Present Illness Initial comments: Patient presents to the emergency department via EMS for altered mental status. Per the patient's caregiver the patient took her nighttime meds which include gabapentin, Zantac, trazodone, Lamictal. Patient states that she wanted to get more sleep and denies homicidal or suicidal ideations. Patient states she has no intention of killing herself. Patient is somnolent on my initial examination and had to be aroused multiple times. Patient denies chest pain, shortness breath, or headache. The patient's caregiver states the patient only took 1 dosage of her evening meds because her medications are placed in a blister pack and only one blister pack was inappropriately open -: Sudden Severity scale (0 -10): 0 Consistency: constant Improves with: none Worsens with: none Associated Symptoms: denies other symptoms Treatments Prior to Arrival: none - Related Data Home Medications Medication Instructions Recorded Confirmed Last Taken raNITIdine HCl [Zantac] 150 mg PO BID 12/24/18 05/27/19 12/25/18 08:00 lamoTRIgine [LaMICtal] 100 mg PO QDAY 12/25/18 05/27/19 12/25/18 08:00 Duloxetine HCl [Drizalma Sprinkle] 60 mg PO DAILY 05/27/19 05/27/19 Unknown Ergocalciferol (Vitamin D2) 50,000 unit PO QWEEK 05/27/19 05/27/19 Unknown [Drisdol] Gabapentin 300 mg PO TID 05/27/19 05/27/19 Unknown [place] Carbonate [Eskalith] 150 mg PO BID 05/27/19 05/27/19 Unknown Montelukast Sodium 10 mg PO DAILY 05/27/19 05/27/19 Unknown Tolterodine Tartrate 2 mg PO BID 05/27/19 05/27/19 Unknown Trazodone HCl 100 mg PO QHS 05/27/19 05/27/19 Unknown hydrOXYzine PAMOATE [Vistaril] 50 mg PO QID 05/27/19 05/27/19 Unknown Allergies Allergy/AdvReac Type Severity Reaction Status Date / Time No Known Allergies Allergy Verified 12/26/18 00:02 ED Review of Systems ROS: Stated complaint: SHAKY Other details as noted in HPI Comment: All other systems reviewed and negative Constitutional: denies: chills, fever Eyes: denies: eye pain, eye discharge, vision change ENT: denies: ear pain, throat pain Respiratory: denies: cough, shortness of breath, wheezing Cardiovascular: denies: chest pain, palpitations Endocrine: no symptoms reported Gastrointestinal: denies: abdominal pain, nausea, diarrhea Genitourinary: denies: urgency, dysuria, discharge Musculoskeletal: denies: back pain, joint swelling, arthralgia Skin: denies: rash, lesions Neurological: denies: headache, weakness, paresthesias Psychiatric: denies: anxiety, depression Hematological/Lymphatic: denies: easy bleeding, easy bruising ED Past Medical Hx - Past Medical History Previous Medical History?: Yes Hx Hypertension: Yes Hx GERD: Yes Hx Psychiatric Treatment: Yes (ANXIETY) Hx Asthma: Yes Hx COPD: Yes Additional medical history: HIGH CHOLESTEROL - Surgical History Past Surgical History?: Yes Additional Surgical History: LAZARO KNEE SURGERY - Social History Smoking Status: Never Smoker Substance Use Type: None - Medications Home Medications: Home Medications Medication Instructions Recorded Confirmed Last Taken Type raNITIdine HCl [Zantac] 150 mg PO BID 12/24/18 05/27/19 12/25/18 08:00 History lamoTRIgine [LaMICtal] 100 mg PO QDAY 12/25/18 05/27/19 12/25/18 08:00 History Duloxetine HCl [Drizalma Sprinkle] 60 mg PO DAILY 05/27/19 05/27/19 Unknown History Ergocalciferol (Vitamin D2) 50,000 unit PO QWEEK 05/27/19 05/27/19 Unknown History [Drisdol] Gabapentin 300 mg PO TID 05/27/19 05/27/19 Unknown History [place] Carbonate [Eskalith] 150 mg PO BID 05/27/19 05/27/19 Unknown History Montelukast Sodium 10 mg PO DAILY 05/27/19 05/27/19 Unknown History Tolterodine Tartrate 2 mg PO BID 05/27/19 05/27/19 Unknown History Trazodone HCl 100 mg PO QHS 05/27/19 05/27/19 Unknown History hydrOXYzine PAMOATE [Vistaril] 50 mg PO QID 05/27/19 05/27/19 Unknown History ED Physical Exam - General Limitations: Altered Mental Status General appearance: alert, in no apparent distress, obtunded, other (But easily arousable) - Head Head exam: Present: atraumatic, normocephalic - Eye Eye exam: Present: normal appearance, PERRL, EOMI - ENT ENT exam: Present: mucous membranes dry - Neck Neck exam: Present: normal inspection - Respiratory Respiratory exam: Present: normal lung sounds bilaterally. Absent: respiratory distress - Cardiovascular Cardiovascular Exam: Present: normal rhythm, tachycardia. Absent: systolic murmur, diastolic murmur, rubs, gallop - GI/Abdominal GI/Abdominal exam: Present: soft, normal bowel sounds. Absent: distended, tenderness - Extremities Exam Extremities exam: Present: normal inspection - Back Exam Back exam: Present: normal inspection - Neurological Exam Neurological exam: Present: alert, oriented X3, CN II-XII intact. Absent: motor sensory deficit - Psychiatric Psychiatric exam: Present: normal affect, normal mood - Skin Skin exam: Present: warm, dry, intact, normal color. Absent: rash ED Course Vital Signs 05/27/19 05/27/19 05/27/19 10:35 13:05 13:50 Temperature 99.5 F Pulse Rate 107 H 89 Respiratory 12 14 12 Rate Blood Pressure 115/53 130/68 [Right] O2 Sat by Pulse 92 90 Oximetry ED Medical Decision Making - Lab Data Result diagrams: 05/27/19 11:30 05/27/19 11:30 Lab Results 05/27/19 05/27/19 05/27/19 Range/Units 11:30 11:30 11:30 WBC (4.5-11.0) K/mm3 RBC (3.65-5.03) M/mm3 Hgb (10.1-14.3) gm/dl Hct (30.3-42.9) % MCV (79-97) fl MCH (28-32) pg MCHC (30-34) % RDW (13.2-15.2) % Plt Count (140-440) K/mm3 Baso % (Auto) Add Manual Diff Total Counted Seg Neuts % (Manual) (40.0-70.0) % Band Neutrophils % % Lymphocytes % (Manual) (13.4-35.0) % Reactive Lymphs % (Man) % Monocytes % (Manual) (0.0-7.3) % Eosinophils % (Manual) (0.0-4.3) % Basophils % (Manual) (0.0-1.8) % Metamyelocytes % % Myelocytes % % Promyelocytes % % Blast Cells % % Nucleated RBC % Seg Neutrophils # Man (1.8-7.7) K/mm3 Band Neutrophils # K/mm3 Lymphocytes # (Manual) (1.2-5.4) K/mm3 Abs React Lymphs (Man) K/mm3 Monocytes # (Manual) (0.0-0.8) K/mm3 Eosinophils # (Manual) (0.0-0.4) K/mm3 Basophils # (Manual) (0.0-0.1) K/mm3 Metamyelocytes # K/mm3 Myelocytes # K/mm3 Promyelocytes # K/mm3 Blast Cells # K/mm3 WBC Morphology Hypersegmented Neuts Hyposegmented Neuts Hypogranular Neuts Smudge Cells Toxic Granulation Toxic Vacuolation Dohle Bodies Pelger-Huet Anomaly Natan Rods Platelet Estimate Clumped Platelets Plt Clumps, EDTA Large Platelets Giant Platelets Platelet Satelliting Plt Morphology Comment RBC Morphology Dimorphic RBCs Polychromasia Hypochromasia Poikilocytosis Anisocytosis Microcytosis Macrocytosis Spherocytes Pappenheimer Bodies Sickle Cells Target Cells Tear Drop Cells Ovalocytes Helmet Cells [place] Bodies [place] Rings [place] Cells Bite Cells Crenated Cell Elliptocytes Acanthocytes (Spur) Rouleaux Hemoglobin C Crystals Schistocytes Malaria parasites [place] Bodies Hem Pathologist Commnt Sodium 142 (137-145) mmol/L Potassium 3.5 L (3.6-5.0) mmol/L Chloride 101.7 (98-107) mmol/L Carbon Dioxide 22 (22-30) mmol/L Anion Gap 22 mmol/L BUN 7 (7-17) mg/dL Creatinine 0.8 (0.7-1.2) mg/dL Estimated GFR > 60 ml/min BUN/Creatinine Ratio 9 % Glucose 151 H (65-100) mg/dL Calcium 9.5 (8.4-10.2) mg/dL Magnesium (1.7-2.3) mg/dL Total Creatine Kinase (30-135) units/L NT-Pro-B Natriuret Pep (0-900) pg/mL Urine Color (Yellow) Urine Turbidity (Clear) Urine pH (5.0-7.0) Ur Specific [place] (1.003-1.030) Urine Protein (Negative) mg/dL Urine Glucose (UA) (Negative) mg/dL Urine Ketones (Negative) mg/dL Urine Blood (Negative) Urine Nitrite (Negative) Urine Bilirubin (Negative) Urine Urobilinogen (<2.0) mg/dL Ur Leukocyte Esterase (Negative) Urine WBC (Auto) (0.0-6.0) /HPF Urine RBC (Auto) (0.0-6.0) /HPF U Epithel Cells (Auto) (0-13.0) /HPF Urine Bacteria (Auto) (Negative) /HPF Urine Mucus /HPF Salicylates < 0.3 L (2.8-20.0) mg/dL Urine Opiates Screen Urine Methadone Screen Acetaminophen < 5.0 L (10.0-30.0) ug/mL Ur Barbiturates Screen Ur Phencyclidine Scrn Ur Amphetamines Screen U Benzodiazepines Scrn Urine Cocaine Screen U Marijuana (THC) Screen Drugs of Abuse Note Plasma/Serum Alcohol (0-0.07) % 05/27/19 05/27/19 05/27/19 Range/Units 11:30 11:30 13:05 WBC 6.7 (4.5-11.0) K/mm3 RBC 4.58 (3.65-5.03) M/mm3 Hgb 12.4 (10.1-14.3) gm/dl Hct 38.4 (30.3-42.9) % MCV 84 (79-97) fl MCH 27 L (28-32) pg MCHC 32 (30-34) % RDW 15.8 H (13.2-15.2) % Plt Count 345 (140-440) K/mm3 Baso % (Auto) Car Rental Sales Assistant Add Manual Diff Complete Total Counted 100 Seg Neuts % (Manual) 90.0 H (40.0-70.0) % Band Neutrophils % 0 % Lymphocytes % (Manual) 8.0 L (13.4-35.0) % Reactive Lymphs % (Man) 0 % Monocytes % (Manual) 2.0 (0.0-7.3) % Eosinophils % (Manual) 0 (0.0-4.3) % Basophils % (Manual) 0 (0.0-1.8) % Metamyelocytes % 0 % Myelocytes % 0 % Promyelocytes % 0 % Blast Cells % 0 % Nucleated RBC % Not Reportable Seg Neutrophils # Man 6.0 (1.8-7.7) K/mm3 Band Neutrophils # 0.0 K/mm3 Lymphocytes # (Manual) 0.5 L (1.2-5.4) K/mm3 Abs React Lymphs (Man) 0.0 K/mm3 Monocytes # (Manual) 0.1 (0.0-0.8) K/mm3 Eosinophils # (Manual) 0.0 (0.0-0.4) K/mm3 Basophils # (Manual) 0.0 (0.0-0.1) K/mm3 Metamyelocytes # 0.0 K/mm3 Myelocytes # 0.0 K/mm3 Promyelocytes # 0.0 K/mm3 Blast Cells # 0.0 K/mm3 WBC Morphology Not Reportable Hypersegmented Neuts Not Reportable Hyposegmented Neuts Not Reportable Hypogranular Neuts Not Reportable Smudge Cells Not Reportable Toxic Granulation Not Reportable Toxic Vacuolation Not Reportable Dohle Bodies Not Reportable Pelger-Huet Anomaly Not Reportable Natan Rods Not Reportable Platelet Estimate Consistent w auto Clumped Platelets Not Reportable Plt Clumps, EDTA Not Reportable Large Platelets Not Reportable Giant Platelets Not Reportable Platelet Satelliting Not Reportable Plt Morphology Comment Not Reportable RBC Morphology Normal Dimorphic RBCs Not Reportable Polychromasia Not Reportable Hypochromasia Not Reportable Poikilocytosis Not Reportable Anisocytosis Not Reportable Microcytosis Not Reportable Macrocytosis Not Reportable Spherocytes Not Reportable Pappenheimer Bodies Not Reportable Sickle Cells Not Reportable Target Cells Not Reportable Tear Drop Cells Not Reportable Ovalocytes Not Reportable Helmet Cells Not Reportable [place] Bodies Not Reportable [place] Rings Not Reportable Alexia Cells Not Reportable Bite Cells Not Reportable Crenated Cell Not Reportable Elliptocytes Not Reportable Acanthocytes (Spur) Not Reportable Rouleaux Not Reportable Hemoglobin C Crystals Not Reportable Schistocytes Not Reportable Malaria parasites Not Reportable [place] Bodies Not Reportable Hem Pathologist Commnt No Sodium (137-145) mmol/L Potassium (3.6-5.0) mmol/L Chloride (98-107) mmol/L Carbon Dioxide (22-30) mmol/L Anion Gap mmol/L BUN (7-17) mg/dL Creatinine (0.7-1.2) mg/dL Estimated GFR ml/min BUN/Creatinine Ratio % Glucose (65-100) mg/dL Calcium (8.4-10.2) mg/dL Magnesium (1.7-2.3) mg/dL Total Creatine Kinase (30-135) units/L NT-Pro-B Natriuret Pep (0-900) pg/mL Urine Color Yellow (Yellow) Urine Turbidity Slightly-cloudy (Clear) Urine pH 5.0 (5.0-7.0) Ur Specific [place] 1.017 (1.003-1.030) Urine Protein <15 mg/dl (Negative) mg/dL Urine Glucose (UA) Neg (Negative) mg/dL Urine Ketones Neg (Negative) mg/dL Urine Blood Neg (Negative) Urine Nitrite Neg (Negative) Urine Bilirubin Neg (Negative) Urine Urobilinogen < 2.0 (<2.0) mg/dL Ur Leukocyte Esterase Mod (Negative) Urine WBC (Auto) 12.0 H (0.0-6.0) /HPF Urine RBC (Auto) 4.0 (0.0-6.0) /HPF U Epithel Cells (Auto) 1.0 (0-13.0) /HPF Urine Bacteria (Auto) 1+ (Negative) /HPF Urine Mucus Few /HPF Salicylates (2.8-20.0) mg/dL Urine Opiates Screen Urine Methadone Screen Acetaminophen (10.0-30.0) ug/mL Ur Barbiturates Screen Ur Phencyclidine Scrn Ur Amphetamines Screen U Benzodiazepines Scrn Urine Cocaine Screen U Marijuana (THC) Screen Drugs of Abuse Note Plasma/Serum Alcohol < 0.01 (0-0.07) % 05/27/19 05/27/19 05/27/19 Range/Units 13:05 Unknown Unknown WBC (4.5-11.0) K/mm3 RBC (3.65-5.03) M/mm3 Hgb (10.1-14.3) gm/dl Hct (30.3-42.9) % MCV (79-97) fl MCH (28-32) pg MCHC (30-34) % RDW (13.2-15.2) % Plt Count (140-440) K/mm3 Baso % (Auto) Add Manual Diff Total Counted Seg Neuts % (Manual) (40.0-70.0) % Band Neutrophils % % Lymphocytes % (Manual) (13.4-35.0) % Reactive Lymphs % (Man) % Monocytes % (Manual) (0.0-7.3) % Eosinophils % (Manual) (0.0-4.3) % Basophils % (Manual) (0.0-1.8) % Metamyelocytes % % Myelocytes % % Promyelocytes % % Blast Cells % % Nucleated RBC % Seg Neutrophils # Man (1.8-7.7) K/mm3 Band Neutrophils # K/mm3 Lymphocytes # (Manual) (1.2-5.4) K/mm3 Abs React Lymphs (Man) K/mm3 Monocytes # (Manual) (0.0-0.8) K/mm3 Eosinophils # (Manual) (0.0-0.4) K/mm3 Basophils # (Manual) (0.0-0.1) K/mm3 Metamyelocytes # K/mm3 Myelocytes # K/mm3 Promyelocytes # K/mm3 Blast Cells # K/mm3 WBC Morphology Hypersegmented Neuts Hyposegmented Neuts Hypogranular Neuts Smudge Cells Toxic Granulation Toxic Vacuolation Dohle Bodies Pelger-Huet Anomaly Natan Rods Platelet Estimate Clumped Platelets Plt Clumps, EDTA Large Platelets Giant Platelets Platelet Satelliting Plt Morphology Comment RBC Morphology Dimorphic RBCs Polychromasia Hypochromasia Poikilocytosis Anisocytosis Microcytosis Macrocytosis Spherocytes Pappenheimer Bodies Sickle Cells Target Cells Tear Drop Cells Ovalocytes Helmet Cells [place] Bodies [place] Rings Alexia Cells Bite Cells Crenated Cell Elliptocytes Acanthocytes (Spur) Rouleaux Hemoglobin C Crystals Schistocytes Malaria parasites [place] Bodies Hem Pathologist Commnt Sodium (137-145) mmol/L Potassium (3.6-5.0) mmol/L Chloride (98-107) mmol/L Carbon Dioxide (22-30) mmol/L Anion Gap mmol/L BUN (7-17) mg/dL Creatinine (0.7-1.2) mg/dL Estimated GFR ml/min BUN/Creatinine Ratio % Glucose (65-100) mg/dL Calcium (8.4-10.2) mg/dL Magnesium 2.00 (1.7-2.3) mg/dL Total Creatine Kinase 198 H (30-135) units/L NT-Pro-B Natriuret Pep 99.77 (0-900) pg/mL Urine Color (Yellow) Urine Turbidity (Clear) Urine pH (5.0-7.0) Ur Specific [place] (1.003-1.030) Urine Protein (Negative) mg/dL Urine Glucose (UA) (Negative) mg/dL Urine Ketones (Negative) mg/dL Urine Blood (Negative) Urine Nitrite (Negative) Urine Bilirubin (Negative) Urine Urobilinogen (<2.0) mg/dL Ur Leukocyte Esterase (Negative) Urine WBC (Auto) (0.0-6.0) /HPF Urine RBC (Auto) (0.0-6.0) /HPF U Epithel Cells (Auto) (0-13.0) /HPF Urine Bacteria (Auto) (Negative) /HPF Urine Mucus /HPF Salicylates (2.8-20.0) mg/dL Urine Opiates Screen Presumptive negative Urine Methadone Screen Presumptive negative Acetaminophen (10.0-30.0) ug/mL Ur Barbiturates Screen Presumptive negative Ur Phencyclidine Scrn Presumptive negative Ur Amphetamines Screen Presumptive positive U Benzodiazepines Scrn Presumptive negative Urine Cocaine Screen Presumptive negative U Marijuana (THC) Screen Presumptive negative Drugs of Abuse Note Disclamer Plasma/Serum Alcohol (0-0.07) % - EKG Data -: EKG Interpreted by Me EKG shows normal: sinus rhythm Rate: normal - Radiology Data Radiology results: report reviewed - Medical Decision Making Repeat examination at 7 PM the patient is up talkative and able to answer my questions the patient reiterates that she was not trying to harm her self she just want to get some good sleep Caregivers in the room states she is able to take the patient home and watch over her. Critical care attestation.: If time is entered above; I have spent that time in minutes in the direct care of this critically ill patient, excluding procedure time. ED Disposition Clinical Impression: Misuse of prescription only drugs Disposition: DC-01 TO HOME OR SELFCARE Is pt being admited?: No Does the pt Need Aspirin: No Condition: Stable Additional Instructions: return if worse Referrals: PRIMARY CARE,MD [Primary Care Provider] - 3-5 Days [facility] [Provider Group] - 3-5 Days [facility] [Provider Group] - 3-5 Days Time of Disposition: 19:24
--- NOTE | 2019-05-27 16:21 | Cat Scan Report ---
NONENHANCED CT SCAN OF THE HEAD: INDICATION / CLINICAL INFORMATION: 63 years Female; AMS. TECHNIQUE: Routine CT head without contrast. All CT scans at this location are performed using CT dos e reduction for ALARA by means of automated exposure control. COMPARISON: CT scan of the head from 12/24/2018 FINDINGS: BRAIN / INTRACRANIAL CONTENTS: No acute hemorrhage, mass effect, midline shift, hydrocephalus, or ac nilsa, large territorial infarct. Focal chronic white matter ischemia seen in the left frontal lobe in the left centrum semiovale wall is. This was seen in the last CT scan. Dilated perivascular spaces ar e seen in the inferior basal ganglia. No significant white matter abnormality. CRANIOCERVICAL JUNCTION: No significant abnormality. ORBITS: No significant abnormality of visualized orbits. SINUSES / MASTOIDS: No significant abnormality of the visualized paranasal sinuses or mastoid air lida ls. ADDITIONAL FINDINGS: None. IMPRESSION: No acute focal parenchymal lesion in the brain CT findings remain unchanged since 12/24/2018 Signer Name: Wu Brenner MD Signed: 05/27/2019 4:16 PM Workstation Name: [id number]
[2019-05-27 19:50] VITALS: BP 102/41
== END 2019-05-27 20:00 | disposition home or self-care (01) ==
LOC: EEVIPCON 10:29 → ED 10:29
DX: F19.980 Other psychoactive substance use, unspecified with psychoactive substance-induced anxiety disorder (principal); R41.82 Altered mental status, unspecified; I10 Essential (primary) hypertension; K21.9 Gastro-esophageal reflux disease without esophagitis; J44.9 Chronic obstructive pulmonary disease, unspecified; F41.9 Anxiety disorder, unspecified; Z98.890 Other specified postprocedural states; Z79.899 Other long term (current) drug therapy
CPT/HCPCS: 36415; 70450; 71045; 80048; 80307; 81001; 82550; 83735; 83880; 85007; 85025; 87086; 93005; 93010; 99285; J7030; 80320; G0480

== ENCOUNTER 2020-01-07 15:59 | Observation (INO) | payer MEDICARE ==
--- NOTE | 2020-01-07 17:03 | XRay Report ---
CHEST 2 VIEWS INDICATION / CLINICAL INFORMATION: Cough, SOB. COMPARISON: Chest one view from 05/27/2019. FINDINGS: SUPPORT DEVICES: None. HEART / MEDIASTINUM: No significant abnormality. LUNGS / PLEURA: Left basilar opacities have improved since the previous study. There is mild probable scarring along the right upper lobe. The lungs are otherwise clear. No significant pleural effusion or pneumothorax. ADDITIONAL FINDINGS: No significant additional findings. IMPRESSION: 1. Left basilar opacities likely represent atelectasis/scarring. Please correlate with clinical findi ngs. 2. Additional findings as above. Signer Name: Shaji Jenkins MD Signed: 01/07/2020 4:58 PM Workstation Name: [id number]
[2020-01-07] MEDS ORDERED: IPRATROPIUM/ALBUTEROL SULFATE 3 ML AMPUL.NEB IH ONE (20:27)
[2020-01-07] MEDS ORDERED: dexAMETHasone 20 MG/5 ML VIAL IV ONE (20:27)
[2020-01-07] MEDS ORDERED: AZITHROMYCIN 500 MG in SODIUM CHLORIDE 0.9% 250ML 250 ML IV ONE (20:29)
[2020-01-07] MEDS ORDERED: SODIUM CHLORIDE 0.9% 1000 ML 1,000 ML IV ONE (20:29)
[2020-01-07] MEDS ORDERED: cefTRIAXone/NS 1 GM/50 ML 1 GM/50 ML BAG IV ONE (20:29)
[2020-01-07 21:19] LABS: Basophils # (Auto) 0.1 K/mm3 (0.0-0.1); Basophils % (Auto) 1.1 % (0.0-1.8); Eosinophils # (Auto) 0.5 K/mm3 (0.0-0.4); Eosinophils % (Auto) 4.8 % (0.0-4.3); Hematocrit 33.9 % (30.3-42.9); Hemoglobin 11.7 gm/dl (10.1-14.3); Lymphocytes # (Auto) 2.5 K/mm3 (1.2-5.4); Lymphocytes % (Auto) 25.5 % (13.4-35.0); Mean Corpuscular HGB Conc 34 % (30-34); Mean Corpuscular Volume 86 fl (79-97); Monocytes # (Auto) 0.8 K/mm3 (0.0-0.8); Monocytes % (Auto) 7.7 % (0.0-7.3); Platelet Count 276 K/mm3 (140-440); Red Blood Count 3.96 M/mm3 (3.65-5.03); Red Cell Distribution Width 18.5 % (13.2-15.2)
[2020-01-07] MEDS ORDERED: ONDANSETRON 4 MG ODT TAB PO ONE (21:33)
[2020-01-07] MEDS ORDERED: HYDROcodone/ACETAMINOPHEN 5-325 MG TAB PO ONE (21:33)
[2020-01-07 21:37] LABS: C-Reactive Protein 1.5 mg/dL (0.00-1.30)
[2020-01-07 21:44] LABS: Bilirubin,Urine NEG (Negative); Blood,Urine NEG (Negative); Color,Urine Straw (Yellow); Protein,Urine <15 mg/dL mg/dL (Negative); Urobilinogen,Urine < 2.0 mg/dL (<2.0)
[2020-01-07 21:52] LABS: Alanine Aminotransferase 26 units/L (7-56); BUN/Creatinine Ratio 11; Blood Urea Nitrogen 10 mg/dL (7-17); Hemolysis Index 37
--- NOTE | 2020-01-07 22:28 | Emergency Department Report ---
<SOFIA QURESHI - Last Filed: 01/07/20 22:23> - General Chief Complaint: Upper Respiratory Infection Stated Complaint: LOWER BACK PAIN Source: patient Mode of arrival: Ambulatory Limitations: No Limitations - History of Present Illness Initial Comments: Patient is a 64-year-old white female with a history of asthma, COPD, GERD, hypertension, chronic osteoarthritis and anxiety who presents to the ED with complaint of acute onset persistent nasal and sinus congestion, frontal sinus pressure, persistent dry cough with wheezing and shortness of breath for the last 2 weeks, worse in the last 3 days. Patient states that the shortness of breath and wheezing have worsened despite using her medications at home. Patient also complains of low back pain which has been persistent for the last 1 week. Patient states that no one else at home is had similar symptoms, and that she has not been in contact with anyone with similar symptoms. Patient denies chest pain, fever, chills, nausea, vomiting, abdominal pain, dysuria, urinary frequency and urgency, headache, dizziness, syncope, seizures, vaginal bleeding or vaginal discharge and sore throat. MD Complaint: cough, nasal congestion, other (dyspnea, wheezing; low back pain) -: Sudden, week(s) (2) Severity: severe Severity scale (0 -10): 7 Quality: sharp, aching Consistency: constant Improves With: nothing Worsens With: nothing Associated Symptoms: denies other symptoms, rhinorrhea, nasal congestion, cough, shortness of breath. denies: fever, chills, myalgias, diaphoresis, headache, sore throat, stiff neck, chest pain, abdominal pain, nausea, vomiting, diarrhea, dysuria, rash, right sweats, weight loss, epistaxis, hoarseness Treatments Prior to Arrival: none - Related Data Home Medications Medication Instructions Recorded Confirmed Last Taken raNITIdine HCl [Zantac] 150 mg PO BID 12/24/18 05/27/19 12/25/18 08:00 lamoTRIgine [LaMICtal] 100 mg PO QDAY 12/25/18 05/27/19 12/25/18 08:00 Duloxetine HCl [Drizalma Sprinkle] 60 mg PO DAILY 05/27/19 05/27/19 Unknown Ergocalciferol (Vitamin D2) 50,000 unit PO QWEEK 05/27/19 05/27/19 Unknown [Drisdol] Gabapentin 300 mg PO TID 05/27/19 05/27/19 Unknown [place] Carbonate [Eskalith] 150 mg PO BID 05/27/19 05/27/19 Unknown Montelukast Sodium 10 mg PO DAILY 05/27/19 05/27/19 Unknown Tolterodine Tartrate 2 mg PO BID 05/27/19 05/27/19 Unknown Trazodone HCl 100 mg PO QHS 05/27/19 05/27/19 Unknown hydrOXYzine PAMOATE [Vistaril] 50 mg PO QID 05/27/19 05/27/19 Unknown Previous Rx's Medication Instructions Recorded Last Taken Type Sulfamethoxazole/Trimethoprim 1 each PO BID #14 tablet 05/27/19 Unknown Rx [Bactrim DS TAB] Ciprofloxacin HCl [Ciprofloxacin 500 mg PO Q12HR #20 tab 09/13/19 Unknown Rx TAB] Dicyclomine [Bentyl] 20 mg PO Q6H PRN #30 tablet 09/13/19 Unknown Rx Diphenoxylate/Atropine [Lomotil] 1 - 2 tab PO Q4H PRN #15 tablet 09/13/19 Unknown Rx Ketorolac [Toradol] 10 mg PO Q8H PRN #15 tablet 09/13/19 Unknown Rx Ondansetron [Zofran Odt] 4 mg PO Q6HR PRN #20 tab.rapdis 09/13/19 Unknown Rx metroNIDAZOLE [Flagyl] 500 mg PO Q8HR #30 tablet 09/13/19 Unknown Rx Allergies Allergy/AdvReac Type Severity Reaction Status Date / Time No Known Allergies Allergy Verified 12/26/18 00:02 ED Review of Systems Constitutional: denies: chills, fever Eyes: denies: eye pain, eye discharge, vision change ENT: congestion. denies: ear pain, throat pain Respiratory: cough, shortness of breath, wheezing Cardiovascular: denies: chest pain, palpitations Endocrine: no symptoms reported Gastrointestinal: denies: abdominal pain, nausea, vomiting, diarrhea Genitourinary: denies: urgency, dysuria, discharge Musculoskeletal: back pain (lower back pain). denies: joint swelling, arthralgia Skin: denies: rash, lesions Neurological: denies: headache, weakness, paresthesias Psychiatric: denies: anxiety, depression Hematological/Lymphatic: denies: easy bleeding, easy bruising ED Past Medical Hx - Past Medical History Previous Medical History?: Yes Hx Hypertension: Yes Hx GERD: Yes Hx Psychiatric Treatment: Yes (ANXIETY) Hx Asthma: Yes Hx COPD: Yes Additional medical history: HIGH CHOLESTEROL - Surgical History Past Surgical History?: Yes Additional Surgical History: LAZARO KNEE SURGERY - Social History Smoking Status: Never Smoker Substance Use Type: None - Medications Home Medications: Home Medications Medication Instructions Recorded Confirmed Last Taken Type raNITIdine HCl [Zantac] 150 mg PO BID 12/24/18 05/27/19 12/25/18 08:00 History lamoTRIgine [LaMICtal] 100 mg PO QDAY 12/25/18 05/27/19 12/25/18 08:00 History Duloxetine HCl [Drizalma Sprinkle] 60 mg PO DAILY 05/27/19 05/27/19 Unknown History Ergocalciferol (Vitamin D2) 50,000 unit PO QWEEK 05/27/19 05/27/19 Unknown History [Drisdol] Gabapentin 300 mg PO TID 05/27/19 05/27/19 Unknown History [place] Carbonate [Eskalith] 150 mg PO BID 05/27/19 05/27/19 Unknown History Montelukast Sodium 10 mg PO DAILY 05/27/19 05/27/19 Unknown History Sulfamethoxazole/Trimethoprim 1 each PO BID #14 tablet 05/27/19 Unknown Rx [Bactrim DS TAB] Tolterodine Tartrate 2 mg PO BID 05/27/19 05/27/19 Unknown History Trazodone HCl 100 mg PO QHS 05/27/19 05/27/19 Unknown History hydrOXYzine PAMOATE [Vistaril] 50 mg PO QID 05/27/19 05/27/19 Unknown History Ciprofloxacin HCl [Ciprofloxacin 500 mg PO Q12HR #20 tab 09/13/19 Unknown Rx TAB] Dicyclomine [Bentyl] 20 mg PO Q6H PRN #30 tablet 09/13/19 Unknown Rx Diphenoxylate/Atropine [Lomotil] 1 - 2 tab PO Q4H PRN #15 tablet 09/13/19 Unknown Rx Ketorolac [Toradol] 10 mg PO Q8H PRN #15 tablet 09/13/19 Unknown Rx Ondansetron [Zofran Odt] 4 mg PO Q6HR PRN #20 tab.rapdis 09/13/19 Unknown Rx metroNIDAZOLE [Flagyl] 500 mg PO Q8HR #30 tablet 09/13/19 Unknown Rx ED Physical Exam - General Limitations: No Limitations General appearance: alert, in no apparent distress - Head Head exam: Present: atraumatic, normocephalic, normal inspection - Eye Eye exam: Present: normal appearance, PERRL, EOMI Pupils: Present: normal accommodation - ENT ENT exam: Present: normal exam, normal orophraynx, mucous membranes moist, TM's normal bilaterally, normal external ear exam - Neck Neck exam: Present: normal inspection, full ROM - Respiratory Respiratory exam: Present: wheezes (Mildly diffuse coarse wheezes). Absent: respiratory distress, rales, rhonchi, chest wall tenderness, accessory muscle use, prolonged expiratory - Cardiovascular Cardiovascular Exam: Present: normal rhythm, tachycardia, normal heart sounds. Absent: systolic murmur, diastolic murmur, rubs, gallop - GI/Abdominal GI/Abdominal exam: Present: soft, normal bowel sounds. Absent: distended, tenderness, guarding, hyperactive bowel sounds - Extremities Exam Extremities exam: Present: normal inspection, full ROM, normal capillary refill - Back Exam Back exam: Present: normal inspection, full ROM. Absent: tenderness, CVA tenderness (R), CVA tenderness (L), muscle spasm, paraspinal tenderness - Neurological Exam Neurological exam: Present: alert, oriented X3, CN II-XII intact, normal gait, reflexes normal - Psychiatric Psychiatric exam: Present: normal affect, normal mood - Skin Skin exam: Present: warm, dry, intact, normal color. Absent: rash ED Medical Decision Making - Lab Data Result diagrams: 01/07/20 20:53 01/07/20 20:53 - Radiology Data Radiology results: report reviewed, image reviewed Findings [facility] [address] [place] [address] XRay Report Signed Patient: CHAU FERGUSON MR#: [id number] : 1955 Acct:[id number] Age/Sex: 64 / F ADM Date: 01/07/20 Loc: ED Attending Dr: Ordering Physician: ED DOC, Date of Service: 01/07/20 Procedure(s): XR chest routine 2V Accession Number(s): [id number] cc: ED DOC, Fluoro Time In Minutes: CHEST 2 VIEWS INDICATION / CLINICAL INFORMATION: Cough, SOB. COMPARISON: Chest one view from 05/27/2019. FINDINGS: SUPPORT DEVICES: None. HEART / MEDIASTINUM: No significant abnormality. LUNGS / PLEURA: Left basilar opacities have improved since the previous study. There is mild probable scarring along the right upper lobe. The lungs are otherwise clear. No significant pleural effusion or pneumothorax. ADDITIONAL FINDINGS: No significant additional findings. IMPRESSION: 1. Left basilar opacities likely represent atelectasis/scarring. Please correlate with clinical findings. 2. Additional findings as above. Signer Name: Shaji Jenkins MD Signed: 01/07/2020 4:58 PM Workstation Name: [id number] Transcribed By: HEIDI Dictated By: Shaji Jenkins MD Electronically Authenticated By: Shaji Jenkins MD Signed Date/Time: 01/07/201657 DD/ 56 TD/TT: - Medical Decision Making This is a 64-year-old white female with a history of asthma, COPD, GERD, hypertension, chronic osteoarthritis and anxiety who presents to the ED with complaint of acute onset persistent nasal and sinus congestion, frontal sinus pressure, persistent dry cough with wheezing and shortness of breath for the last 2 weeks, worse in the last 3 days. Patient states that the shortness of breath and wheezing have worsened despite using her medications at home. Patient also complains of low back pain which has been persistent for the last 1 week. Patient states that no one else at home is had similar symptoms, and that she has not been in contact with anyone with similar symptoms. In the ED, patient is alert and oriented x3 and is in mild respiratory distress with oxygen saturation of 87% in room air. Patient received DuoNeb treatment in the ED and also received Decadron IV x1. Patient was placed on nasal cannula oxygen set at 2 L a minute. Chest x-ray showed left basilar opacities likely represent a telectasis/scarring. Please correlate with clinical findings. Lab test results were reviewed and showed elevated d-dimer of 383.92, elevated LDH of 265 and elevated CRP of 1.50. Patient was also started on Rocephin 1 g IV x1, also azithromycin 500 mg IV x1. These findings were discussed with the ED attending physician Dr. Bai who advised the patient be treated with IV antibiotics Rocephin and azithromycin, and that the patient be admitted by the hospitalist physician on-call Dr. Tejada. Dr. Bai also evaluated the patient and agree with the plan of care. I therefore paged and discussed the patient's case with Dr. Tejada who admitted the patient to the hospital. - Differential Diagnosis Pneumonia; Covid-19; CAD; Hypoxia; PE; Dissection; Asthma ED Disposition Clinical Impression: Suspected COVID-19 virus infection, Shortness of breath, Hypoxia, Community acquired pneumonia of left lower lobe of lung, Person under investigation for COVID-19 Respiratory failure Qualifiers: Chronicity: acute Respiratory failure complication: hypoxia Qualified Code(s): J96.01 - Acute respiratory failure with hypoxia Disposition: OP ADMIT IP TO THIS HOSP Is pt being admited?: Yes Does the pt Need Aspirin: Yes Condition: Critical Time of Disposition: 22:30 <BOBBY BAI III - Last Filed: 01/08/20 04:15> ED Review of Systems ROS: Stated complaint: LOWER BACK PAIN Other details as noted in HPI ED Course Vital Signs 01/07/20 01/07/20 01/07/20 16:06 22:25 23:47 Temperature 98.0 F Pulse Rate 115 H Pulse Rate [ 86 Bilateral] Respiratory 20 92 H Rate Respiratory 20 Rate [Bilateral ] Blood Pressure 119/64 O2 Sat by Pulse 87 Oximetry 01/08/20 01:09 Temperature 98.4 F Pulse Rate 115 H Pulse Rate [ Bilateral] Respiratory 20 Rate Respiratory Rate [Bilateral ] Blood Pressure 143/70 O2 Sat by Pulse 93 Oximetry - Reevaluation(s) Reevaluation #1: I reviewed the findings and management of this patient in real-time and I have personally seen and examined this patient and participated in the decision making for this patient with the midlevel. Patient is a 64-year-old female that presents for respiratory symptoms. Patient has clinical findings consistent with COVID-19. Patient also found to be hypoxic. Patient's hypoxia is consist ent with respiratory failure and is requiring supplemental oxygen. Patient's initial O2 sat 87%. Patient placed on supplemental oxygen her O2 saturation improved to 96%. Patient given antibiotics and steroids. ID consult will be placed in the system. Patient was admitted to the hospitalist service. I examined the patient. Patient's lung sounds are diminished. Patient is not in any acute distress. Patient abdominal exam is negative. Patient's CV exam was consistent with a normal S1 and S2. Patient is alert and oriented x4. I discussed all results with patient. I discussed plan of care with patient. Patient agrees with plan of care and admission. Patient to be admitted to the ospitalist service. 01/07/20 21:35 - Consultations Consultation #1: Hospitalist consulted for admission. Hospitalist to admit patient. 01/07/20 21:57 ED Medical Decision Making - Lab Data Result diagrams: 01/07/20 20:53 01/07/20 20:53 Critical care attestation.: If time is entered above; I have spent that time in minutes in the direct care of this critically ill patient, excluding procedure time. ED Disposition Is pt being admited?: Yes Does the pt Need Aspirin: No
[2020-01-07] MEDS ORDERED: ASPIRIN 81 MG TAB CHEW PO ONE (22:37)
[2020-01-07] MEDS ORDERED: ONDANSETRON 4 MG/2 ML INJ IV PRN (22:38)
[2020-01-07] MEDS ORDERED: guaiFENesin DM 200/20 MG ORAL LIQD 10 ML PO PRN (23:44)
[2020-01-08] MEDS: ACETAMINOPHEN 325 MG TAB PO PRN ×3 (01:04→22:02)
[2020-01-08] MEDS: methylPREDNISolone Sod Succinate 125 MG/2 ML INJ IV SCH ×3 (05:53→21:56)
--- NOTE | 2020-01-08 07:23 | History and Physical Report ---
History of Present Illness Date of examination: 01/07/20 Date of admission: 01/07/20 22:38 Chief complaint: Shortness of breath,coughand wheezing History of present illness: 64 year old female presenting with shortness of breath, cough ,wheezing and loss of taste. There is no history of fever, chills,chest pain, nausea or vomiting, or body ache Past History Past Medical History: COPD, GERD, hypertension, hyperlipidemia, other (ASTHMA, ANXIETY DIORDER) Past Surgical History: Other (BILATERAL KNEE SURGERY) Social history: no significant social history Family history: no significant family history Medications and Allergies Allergies Allergy/AdvReac Type Severity Reaction Status Date / Time No Known Allergies Allergy Verified 12/26/18 00:02 Home Medications Medication Instructions Recorded Confirmed Last Taken Type raNITIdine HCl [Zantac] 150 mg PO BID 12/24/18 05/27/19 12/25/18 08:00 History lamoTRIgine [LaMICtal] 100 mg PO QDAY 12/25/18 05/27/19 12/25/18 08:00 History Duloxetine HCl [Drizalma Sprinkle] 60 mg PO DAILY 05/27/19 05/27/19 Unknown H istory Ergocalciferol (Vitamin D2) 50,000 unit PO QWEEK 05/27/19 05/27/19 Unknown History [Drisdol] Gabapentin 300 mg PO TID 05/27/19 05/27/19 Unknown History [place] Carbonate [Eskalith] 150 mg PO BID 05/27/19 05/27/19 Unknown History Montelukast Sodium 10 mg PO DAILY 05/27/19 05/27/19 Unknown History Sulfamethoxazole/Trimethoprim 1 each PO BID #14 tablet 05/27/19 Unknown Rx [Bactrim DS TAB] Tolterodine Tartrate 2 mg PO BID 05/27/19 05/27/19 Unknown History Trazodone HCl 100 mg PO QHS 05/27/19 05/27/19 Unknown History hydrOXYzine PAMOATE [Vistaril] 50 mg PO QID 05/27/19 05/27/19 Unknown History Ciprofloxacin HCl [Ciprofloxacin 500 mg PO Q12HR #20 tab 09/13/19 Unknown Rx TAB] Dicyclomine [Bentyl] 20 mg PO Q6H PRN #30 tablet 06/14/20 Unknown Rx Diphenoxylate/Atropine [Lomotil] 1 - 2 tab PO Q4H PRN #15 tablet 09/13/19 Unknown Rx Ketorolac [Toradol] 10 mg PO Q8H PRN #15 tablet 09/13/19 Unknown Rx Ondansetron [Zofran Odt] 4 mg PO Q6HR PRN #20 tab.rapdis 09/13/19 Unknown Rx metroNIDAZOLE [Flagyl] 500 mg PO Q8HR #30 tablet 09/13/19 Unknown Rx Active Meds: Active Medications Acetaminophen (Tylenol) 650 mg PO Q4H PRN PRN Reason: Pain MILD(1-3)/Fever >100.5/CARIAS Last Admin: 01/08/20 01:04 Dose: 650 mg Documented by: Albuterol/Ipratropium (Duoneb *Not For Prn Use*) 1 ampul IH QIDRT [facility] Guaifenesin (Guaifenesin Dm Syrup) 10 ml PO Q4H PRN PRN Reason: Cough Heparin Sodium (Porcine) (Heparin) 5,000 unit SUB-Q Q12HR [facility] Azithromycin 500 mg/ Sodium (Chloride) 250 mls @ 250 mls/hr IV Q24HR [facility]; Danita col Ceftriaxone Sodium (Rocephin/Ns 2 Gm/100 Ml) 2 gm in 100 mls @ 200 mls/hr IV Q24HR [facility]; Protocol Methylprednisolone Sodium Succinate (Solu-Medrol) 60 mg IV Q8HR [facility] Last Admin: 01/08/20 05:53 Dose: Not Given Documented by: Ondansetron HCl (Zofran) 4 mg IV Q8H PRN PRN Reason: Nausea And Vomiting Sodium Chloride (Sodium Chloride Flush Syringe 10 Ml) 10 ml IV BID [facility] Last Admin: 01/08/20 05:54 Dose: 10 ml Documented by: Sodium Chloride (Sodium Chloride Flush Syringe 10 Ml) 10 ml IV PRN PRN PRN Reason: LINE FLUSH Review of Systems Constitutional: no weight loss, no weight gain, no fever, no chills, no sweats, no night sweats, no anorexia, no fatigue, no weakness, no malaise, no lethargy, no daytime sleepiness, no chronic pain Eyes: bilateral: other (NO BILATERAL EYE SYMPTOMS) Ears, nose, mouth and throat: no ear pain, no ear discharge, no tinnitis, no decreased hearing, no nose pain, no nasal congestion, no nasal discharge, no sinus pressure, no mouth pain Breasts: deferred Cardiovascular: shortness of breath, no chest pain, no orthopnea, no palpitations Respiratory: cough, shortness of breath, wheezing, no excessive sputum, no hemoptysis, no pleurisy Gastrointestinal: no abdominal pain, no nausea, no vomiting, no diarrhea, no coffee ground emesis Genitourinary Female: no dyspareunia, no dysmenorrhea, no pelvic pain, no flank pain, no menorrhagia, no dysuria, no urinary frequency, no stress incontinence, no post void dribbling, no incomplete emptying, no urge incontinence, no nocturia, no genital sores Rectal: no pain Musculoskeletal: no neck stiffness, no neck pain, no shooting arm pain, no arm numbness/tingling, no low back pain, no shooting leg pain, no leg numbness/tingling, no hot joints, no morning stiffness Integumentary: no rash, no pruritis, no redness, no sores, no wounds, no jaundice, no boils, no blisters, no growths, no bullae, no lesions, no darkening of skin, no depigmentation, no acne, no dryness Neurological: no head injury, no paralysis, no weakness, no parathesias, no numbness, no tingling, no seizures, no syncope, no tremors, no ataxia, no vertigo, no headaches, no migraines, no convulsions, no aphasia, no change in speech, no change in mentation, no confusion Psychiatric: no anxiety, no hypersomnia, no change in libido, no suicidal ideation, no depression, no hopelessness, no anhedonia, no confusion, no mood swings Endocrine: no cold intolerance, no heat intolerance, no polyphagia, no excessive thirst, no polydipsia, no polyuria, no nocturia, no excessive sweating, no deepening of the voice, no thyroid mass, no palpatations, no high blood sugars, no low blood sugars, no recent glucocorticoid use Hematologic/Lymphatic: no easy bruising, no easy bleeding Allergic/Immunologic: no persistent infections Exam - Constitutional Vitals: Temp Pulse Resp BP Pulse Ox 98.3 F 115 H 22 124/65 94 01/08/20 06:13 01/08/20 06:13 01/08/20 06:13 01/08/20 06:13 01/08/20 06:13 General appearance: Present: no acute distress - EENT Eyes: Present: PERRL ENT: hearing intact, clear oral mucosa - Neck Neck: Present: supple, normal ROM - Respiratory Respiratory effort: normal - Cardiovascular Rhythm: regular Heart Sounds: Present: S1 & S2. Absent: gallop, systolic murmur, diastolic murmur - Extremities Extremities: no ischemia, No edema Peripheral Pulses: within normal limits - Abdominal General gastrointestinal: Present: soft, non-tender, non-distended. Absent: tender, distended Female genitourinary: Present: deferred - Rectal Rectal Exam: deferred - Integumentary Integumentary: Present: clear, warm, dry - Musculoskeletal Musculoskeletal: strength equal bilaterally HEART Score - HEART Score Risk factors: 1-2 risk factors Troponin: Troponin T < 0.010 ng/mL (0.00-0.029) 01/07/20 20:53 Troponin: < normal limit - Critical Actions Critical Actions: 0-3 pts:0.9-1.7%risk of adverse cardiac event.Candidate for discharge Results - Labs CBC & Chem 7: 01/07/20 20:53 01/07/20 20:53 Labs: Laboratory Last Values WBC 9.8 K/mm3 (4.5-11.0) 01/07/20 20:53 RBC 3.96 M/mm3 (3.65-5.03) 01/07/20 20:53 Hgb 11.7 gm/dl (10.1-14.3) 01/07/20 20:53 Hct 33.9 % (30.3-42.9) 01/07/20 20:53 MCV 86 fl (79-97) 01/07/20 20:53 MCH 29 pg (28-32) 01/07/20 20:53 MCHC 34 % (30-34) 01/07/20 20:53 RDW 18.5 % (13.2-15.2) H 01/07/20 20:53 Plt Count 276 K/mm3 (140-440) 01/07/20 20:53 Lymph % (Auto) 25.5 % (13.4-35.0) 01/07/20 20:53 Divide % (Auto) 7.7 % (0.0-7.3) H 01/07/20 20:53 Eos % (Auto) 4.8 % (0.0-4.3) H 01/07/20 20:53 Baso % (Auto) 1.1 % (0.0-1.8) 01/07/20 20:53 Lymph # (Auto) 2.5 K/mm3 (1.2-5.4) 01/07/20 20:53 Divide # (Auto) 0.8 K/mm3 (0.0-0.8) 01/07/20 20:53 Eos # (Auto) 0.5 K/mm3 (0.0-0.4) H 01/07/20 20:53 Baso # (Auto) 0.1 K/mm3 (0.0-0.1) 01/07/20 20:53 Seg Neutrophils % 60.9 % (40.0-70.0) 01/07/20 20:53 Seg Neutrophils # 6.0 K/mm3 (1.8-7.7) 01/07/20 20:53 D-Dimer 383.92 ng/mlDDU (0-234) H 01/07/20 20:53 Sodium 138 mmol/L (137-145) 01/07/20 20:53 Potassium 4.2 mmol/L (3.6-5.0) 01/07/20 20:53 Chloride 98.7 mmol/L (98-107) 01/07/20 20:53 Carbon Dioxide 22 mmol/L (22-30) 01/07/20 20:53 Anion Gap 22 mmol/L 01/07/20 20:53 BUN 10 mg/dL (7-17) 01/07/20 20:53 Creatinine 0.9 mg/dL (0.6-1.2) 01/07/20 20:53 Estimated GFR > 60 ml/min 01/07/20 20:53 BUN/Creatinine Ratio 11 % 01/07/20 20:53 Glucose 105 mg/dL (65-100) H 01/07/20 20:53 Glucose 107 mg/dL (65-100) H 01/07/20 20:53 Calcium 9.0 mg/dL (8.4-10.2) 10/08/20 20:53 Ferritin 34.0 ng/mL (10.0-200.0) 01/07/20 20:53 Total Bilirubin 0.30 mg/dL (0.1-1.2) 01/07/20 20:53 AST 26 units/L (5-40) 01/07/20 20:53 ALT 26 units/L (7-56) 01/07/20 20:53 Alkaline Phosphatase 106 units/L (35-129) 01/07/20 20:53 Lactate Dehydrogenase 265 units/L (91-180) H 01/07/20 20:53 Troponin T < 0.010 ng/mL (0.00-0.029) 01/07/20 20:53 C-Reactive Protein 1.50 mg/dL (0.00-1.30) H 01/07/20 20:53 Total Protein 6.7 g/dL (6.3-8.2) 01/07/20 20:53 Albumin 4.0 g/dL (3.9-5) 01/07/20 20:53 Albumin/Globulin Ratio 1.5 % 01/07/20 20:53 Urine Color Straw (Yellow) 01/07/20 21:20 Urine Turbidity Clear (Clear) 01/07/20 21:20 Urine pH 6.0 (5.0-7.0) 01/07/20 21:20 Ur Specific [place] 1.005 (1.003-1.030) 01/07/20 21:20 Urine Protein <15 mg/dl mg/dL (Negative) 01/07/20 21:20 Urine Glucose (UA) Neg mg/dL (Negative) 01/07/20 21:20 Urine Ketones Neg mg/dL (Negative) 01/07/20 21:20 Urine Blood Neg (Negative) 01/07/20 21:20 Urine Nitrite Neg (Negative) 01/07/20 21:20 Urine Bilirubin Neg (Negative) 01/07/20 21:20 Urine Urobilinogen < 2.0 mg/dL (<2.0) 01/07/20 21:20 Ur Leukocyte Esterase Neg (Negative) 01/07/20 21:20 Urine WBC (Auto) 1.0 /HPF (0.0-6.0) 01/07/20 21:20 Urine RBC (Auto) 1.0 /HPF (0.0-6.0) 01/07/20 21:20 Microbiology: Microbiology 01/07/20 20:53 Peripheral/Venous Blood Culture - Preliminary Culture in Progress 01/07/20 20:53 Peripheral/Venous Blood Culture - Preliminary Culture in Progress Sorensen/IV: Voiding Method Toilet IV Catheter Type [Right Hand] Peripheral IV Assessment and Plan - Patient Problems (1) Bronchitis Current Visit: Yes Status: Acute Plan to address problem: 1. I.V SOLUMEDROL 2. I.V ZITHROMAX ANTIBIOTIC 3. I.V ROCEPHINE ANTIBIOTIC 4. ROBITUSSIN FOR COUGH 5. TYLENOL FOR FEVER (2) Suspected COVID-19 virus infection Current Visit: Yes Status: Acute Plan to address problem: 1. DROPLET, AIRBORN AND CONTACT ISOLATIO 2. I.V ROCEPHINE ANTIBIOTIC 3. I.V ZITHROMAX ANTIBIOTIC 4. INFECTIOUS DISEASE CONSULT
[2020-01-08] MEDS: IPRATROPIUM/ALBUTEROL SULFATE 3 ML AMPUL.NEB IH SCH ×4 (07:44→19:55)
[2020-01-08] MEDS: cefTRIAXone/NS 2 GM/100 ML 2 GM/100 ML BAG IV SCH (09:17)
[2020-01-08] MEDS: HEPARIN 5,000 UNIT/1 ML VIAL SUB-Q SCH ×2 (09:19→21:56)
[2020-01-08] MEDS ORDERED: AZITHROMYCIN 500 MG in SODIUM CHLORIDE 0.9% 250ML 250 ML IV SCH (10:00)
[2020-01-08] MEDS ORDERED: MORPHINE 2 MG/1 ML INJ IV PRN (12:46)
--- NOTE | 2020-01-08 12:47 | Event Note ---
Date: 01/08/20 Patient 64-year-old presents with shortness of breath cough wheezing and low- grade fever. Patient was admitted with suspected COVID-19 infection as well as bronchitis. Patient was treated with steroids azithromycin Rocephin and droplet precautions. Patient complains today of pain. Would like a pain shot morphine. Follow-up serology patient is negative for COVID-19 pneumonia. Continue treatment for community-acquired pneumonia.
--- NOTE | 2020-01-08 13:46 | Consultation ---
History of Present Illness - Reason for Consult Consult date: 01/08/20 COVID suspected Requesting physician: MASTER RANDLE - History of Present Illness The patient is a 64-year-old female with COPD (never smoked, states she was diagnosed with COPD after she had been on the ventilator for ARDS in the past), hypertension, hyperlipidemia, gastroesophageal reflux disease who presented to the emergency room yesterday with complaints of shortness of breath, cough and wheezing. States she has been producing yellowish-green sputum. Denies any fevers or chills. Chest x-ray showed some emphysematous change, otherwise no obvious infiltrate. Factious diseases was consulted due to suspicion for COVID- 19. Labs showed no leukocytosis, d-dimer 383.92, ferritin 34, LDH 265, CRP 1.5. Review of Systems: General: no fevers,chills or rigors HEENT: no new visual disturbance Respiratory: + cough, sputum, shortness of breath Cardiovascular: No chest pain, syncope Gastrointestinal: No nausea, vomiting or diarrhea Genitourinary: No dysuria or hematuria Musculoskeletal: No new or worsening neck pain or back pain Neurologic: No headaches, seizures Hematologic: No easy bruising or bleeding Endocrine: No night sweats or acute weight loss Skin: negative for rash, jaundice Psychiatric: No suicidal or homicidal ideation Past History Past Medical History: COPD, GERD, hypertension, hyperlipidemia, other (ASTHMA, ANXIETY DIORDER) Past Surgical History: Other (BILATERAL KNEE SURGERY) Social history: no significant social history Family history: no significant family history Medications and Allergies Allergies Allergy/AdvReac Type Severity Reaction Status Date / Time No Known Allergies Allergy Verified 12/26/18 00:02 Home Medications Medication Instructions Recorded Confirmed Last Taken Type raNITIdine HCl [Zantac] 150 mg PO BID 12/24/18 05/27/19 12/25/18 08:00 History lamoTRIgine [LaMICtal] 100 mg PO QDAY 12/25/18 05/27/19 12/25/18 08:00 History Duloxetine HCl [Drizalma Sprinkle] 60 mg PO DAILY 05/27/19 05/27/19 Unknown History Ergocalciferol (Vitamin D2) 50,000 unit PO QWEEK 05/27/19 05/27/19 Unknown History [Drisdol] Gabapentin 300 mg PO TID 05/27/19 05/27/19 Unknown History [place] Carbonate [Eskalith] 150 mg PO BID 05/27/19 05/27/19 Unknown History Montelukast Sodium 10 mg PO DAILY 05/27/19 05/27/19 Unknown History Sulfamethoxazole/Trimethoprim 1 each PO BID #14 tablet 05/27/19 Unknown Rx [Bactrim DS TAB] Tolterodine Tartrate 2 mg PO BID 05/27/19 05/27/19 Unknown History Trazodone HCl 100 mg PO QHS 05/27/19 05/27/19 Unknown History hydrOXYzine PAMOATE [Vistaril] 50 mg PO QID 05/27/19 05/27/19 Unknown History Ciprofloxacin HCl [Ciprofloxacin 500 mg PO Q12HR #20 tab 09/13/19 Unknown Rx TAB] Dicyclomine [Bentyl] 20 mg PO Q6H PRN #30 tablet 09/13/19 Unknown Rx Diphenoxylate/Atropine [Lomotil] 1 - 2 tab PO Q4H PRN #15 tablet 09/13/19 Unknown Rx Ketorolac [Toradol] 10 mg PO Q8H PRN #15 tablet 09/13/19 Unknown Rx Ondansetron [Zofran Odt] 4 mg PO Q6HR PRN #20 tab.rapdis 09/13/19 Unknown Rx metroNIDAZOLE [Flagyl] 500 mg PO Q8HR #30 tablet 09/13/19 Unknown Rx Active Meds: Active Medications Acetaminophen (Tylenol) 650 mg PO Q4H PRN PRN Reason: Pain MILD(1-3)/Fever >100.5/CARIAS Last Admin: 01/08/20 12:35 Dose: 650 mg Documented by: Albuterol/Ipratropium (Duoneb *Not For Prn Use*) 1 ampul IH QIDRT [facility] Last Admin: 01/08/20 07:44 Dose: 1 ampul Documented by: Guaifenesin (Guaifenesin Dm Syrup) 10 ml PO Q4H PRN PRN Reason: Cough Heparin Sodium (Porcine) (Heparin) 5,000 unit SUB-Q Q12HR [facility] Last Admin: 01/08/20 09:19 Dose: 5,000 unit Documented by: Azithromycin 500 mg/ Sodium (Chloride) 250 mls @ 250 mls/hr IV Q24HR [facility]; Protocol Last Admin: 01/08/20 10:30 Dose: 250 mls/hr Documented by: Ceftriaxone Sodium (Rocephin/Ns 2 Gm/100 Ml) 2 gm in 100 mls @ 200 mls/hr IV Q24HR [facility]; Protocol Last Admin: 01/08/20 09:17 Dose: 200 mls/hr Documented by: Methylprednisolone Sodium Succinate (Solu-Medrol) 60 mg IV Q8HR [facility] Last Admin: 01/08/20 05:53 Dose: Not Given Documented by: Morphine Sulfate (Morphine) 2 mg IV Q6H PRN PRN Reason: Pain, Moderate (4-6) Ondansetron HCl (Zofran) 4 mg IV Q8H PRN PRN Reason: Nausea And Vomiting Sodium Chloride (Sodium Chloride Flush Syringe 10 Ml) 10 ml IV BID [facility] Last Admin: 01/08/20 09:34 Dose: 10 ml Documented by: Sodium Chloride (Sodium Chloride Flush Syringe 10 Ml) 10 ml IV PRN PRN PRN Reason: LINE FLUSH Physical Examination - Physical Exam Narrative exam: Physical Exam: Constitutional: Alert, cooperative. No acute distress Head, Ears, Nose: Normocephalic, atraumatic. External ears, nose normal Eyes: Conjunctivae/corneas clear. No icterus. No ptosis. Oral: dentures + Neck: Supple, no meningeal signs Cardiovascular: S1, S2 normal. Respiratory: Bilateral wheeze GI: Soft, non-tender; bowel sounds normal. No peritoneal signs Musculoskeletal: No pedal edema, no cyanosis. Skin: No rash or abscess Hem/Lymphatic: No palpable cervical or supraclavicular nodes. No lymphangitis Psych: Mood ok. Affect normal Neurological: Awake, alert, oriented. No gross abnormality - Constitutional Vitals: Vital Signs Temp Pulse Resp BP Pulse Ox 98.3 F 89 16 124/65 96 01/08/20 06:13 01/08/20 07:44 01/08/20 07:44 01/08/20 06:13 01/08/20 09:00 Temperature -Last 24 Hours Temperature 98.3 F Temperature 98.4 F Temperature 98.0 F Results - Labs CBC & Chem 7: 01/07/20 20:53 01/07/20 20:53 Labs: Abnormal lab results 01/07/20 01/07/20 01/07/20 Range/Units 20:53 20:53 20:53 RDW 18.5 H (13.2-15.2) % Teller % (Auto) 7.7 H (0.0-7.3) % Eos % (Auto) 4.8 H (0.0-4.3) % Eos # (Auto) 0.5 H (0.0-0.4) K/mm3 D-Dimer 383.92 H (0-234) ng/mlDDU Glucose 105 H (65-100) mg/dL Lactate Dehydrogenase (91-180) units/L C-Reactive Protein (0.00-1.30) mg/dL 01/07/20 Range/Units 20:53 RDW (13.2-15.2) % Teller % (Auto) (0.0-7.3) % Eos % (Auto) (0.0-4.3) % Eos # (Auto) (0.0-0.4) K/mm3 D-Dimer (0-234) ng/mlDDU Glucose 107 H (65-100) mg/dL Lactate Dehydrogenase 265 H (91-180) units/L C-Reactive Protein 1.50 H (0.00-1.30) mg/dL - Imaging and Cardiology Chest x-ray: report reviewed, image reviewed (no pneumonia) Assessment and Plan Cultures: 01/07/2020 blood culture: In process A/P: 64-year-old female with COPD (never smoked, states she was diagnosed with COPD after she had been on the ventilator for ARDS in the past), hypertension, hyperlipidemia, gastroesophageal reflux disease who presented to the emergency room yesterday with complaints of shortness of breath, cough and wheezing: #Acute COPD exacerbation / bronchitis: COVID-19 is negative. Labs showed no leukocytosis, d-dimer 383.92, ferritin 34, LDH 265, CRP 1.5. CXR without infiltrate. Recs: COVID-19 PCR is negative. Chest x-ray does not show any obvious infiltrate. If procalcitonin is normal, stop antibiotics ID will sign off. Plesae call with questions. Angel Li MD, FACP [facility] O: [phone] F: [phone]
[2020-01-09] MEDS: methylPREDNISolone Sod Succinate 125 MG/2 ML INJ IV SCH (05:44)
[2020-01-09 07:27] LABS: Basophils # (Auto) 0.1 K/mm3 (0.0-0.1); Basophils % (Auto) 0.5 % (0.0-1.8); Eosinophils % (Auto) 0.1 % (0.0-4.3); Hematocrit 36.4 % (30.3-42.9); Hemoglobin 12.1 gm/dl (10.1-14.3); Lymphocytes # (Auto) 1.2 K/mm3 (1.2-5.4); Lymphocytes % (Auto) 9.6 % (13.4-35.0); Mean Corpuscular HGB Conc 33 % (30-34); Mean Corpuscular Volume 86 fl (79-97); Monocytes # (Auto) 0.4 K/mm3 (0.0-0.8); Monocytes % (Auto) 3.2 % (0.0-7.3); Platelet Count 331 K/mm3 (140-440); Red Blood Count 4.24 M/mm3 (3.65-5.03); Red Cell Distribution Width 18.9 % (13.2-15.2)
[2020-01-09 07:39] LABS: Blood Urea Nitrogen 10 mg/dL (7-17); Calcium 9.4 mg/dL (8.4-10.2); Hemolysis Index 1
[2020-01-09 08:06] LABS: BUN/Creatinine Ratio 14
[2020-01-09] MEDS: IPRATROPIUM/ALBUTEROL SULFATE 3 ML AMPUL.NEB IH SCH ×2 (08:43→12:52)
[2020-01-09] MEDS ORDERED: AZITHROMYCIN 250 MG TAB PO SCH (10:00)
[2020-01-09] MEDS: HEPARIN 5,000 UNIT/1 ML VIAL SUB-Q SCH (11:02)
[2020-01-09] MEDS: cefTRIAXone/NS 2 GM/100 ML 2 GM/100 ML BAG IV SCH (11:03)
--- NOTE | 2020-01-09 11:04 | Discharge Summary ---
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 Work-up in ED found patient to have negative coronavirus serology. Patient did show evidence of acute bronchitis. Patient has had this before. Hospital course complicated by patient is currently on home O2 at 3 L. Will resume this. Patient does give a history where her oxygen unit has been destroyed in [facility]. Will attempt to resume oxygen again. Discharged home on nebulizers. Empiric antibiotics. Disposition: DC- TO HOME OR SELFCARE - Discharge Diagnoses (1) Bronchitis Status: Acute Comment: Nebulizers. Home O2. Empiric antibiotics for 7 days. (2) Hypoxia Status: Acute (3) COPD exacerbation Status: Acute Core Measure Documentation - Palliative Care Palliative Care/ Comfort Measures: Not Applicable - Core Measures Any of the following diagnoses?: none Exam - Constitutional Vitals: Temp Pulse Resp BP Pulse Ox 98.2 F 125 H 16 136/91 92 01/09/20 04:46 01/09/20 08:43 01/09/20 08:43 01/09/20 04:46 01/09/20 04:46 General appearance: Present: no acute distress, well-nourished - EENT Eyes: Present: PERRL ENT: hearing intact, clear oral mucosa - Neck Neck: Present: supple, normal ROM - Respiratory Respiratory effort: normal Respiratory: bilateral: wheezing (Mild wheezing.) - Cardiovascular Heart Sounds: Present: S1 & S2. Absent: rub, click - Extremities Extremities: pulses symmetrical, No edema Peripheral Pulses: within normal limits - Abdominal General gastrointestinal: Present: soft, non-tender, non-distended, normal bowel sounds Female genitourinary: Present: normal - Integumentary Integumentary: Present: clear, warm, dry - Musculoskeletal Musculoskeletal: gait normal, strength equal bilaterally - Psychiatric Psychiatric: appropriate mood/affect, intact judgment & insight - Neurologic Neurologic: CNII-XII intact, moves all extremities Plan Activity: no restrictions Weight Bearing Status: Full Weight Bearing Diet: low fat Special Instructions: home oxygen via Durable Medical Equipment Needed Upon Discharge: Nebulizer Follow up with: PRIMARY CARE, [Primary Care Provider] - 7 Days Prescriptions: Sulfamethoxazole/Trimethoprim [Bactrim DS TAB] 1 each PO BID #14 tablet guaiFENesin DM [Guaifenesin Dm Syrup] 10 ml PO Q4H PRN #1 oral.liqd PRN Reason: Cough Azithromycin [Zithromax TAB] 500 mg PO QDAY #3 tablet
[2020-01-09 13:32] VITALS: BP 155/86
== END 2020-01-09 15:15 | disposition home or self-care (01) ==
LOC: ED 15:59 → 3A 22:38 → INTOOBSV 22:38
PROVIDERS: ADMIT Internal Medicine; ATTEND Internal Medicine
DX: J96.01 Acute respiratory failure with hypoxia (principal); Z20.828 Contact with and (suspected) exposure to other viral communicable diseases; J18.9 Pneumonia, unspecified organism; J40 Bronchitis, not specified as acute or chronic; J44.9 Chronic obstructive pulmonary disease, unspecified; J44.1 Chronic obstructive pulmonary disease with (acute) exacerbation; K21.9 Gastro-esophageal reflux disease without esophagitis; I10 Essential (primary) hypertension; M19.90 Unspecified osteoarthritis, unspecified site; E78.5 Hyperlipidemia, unspecified; F41.9 Anxiety disorder, unspecified; Z98.890 Other specified postprocedural states
CPT/HCPCS: 36415; 71046; 80048; 80053; 81001; 82728; 82947; 83520; 83615; 84145; 84484; 85025; 85379; 86140; 87040; 93005; 94640; 94644; 94760; 96365; 96366; 96367; 96372; 96375; 96376; 99285; G0378; J0456; J0696; J1100; J1644; J2405; J2930; J7030; J7050; U0003; Q0162

== ENCOUNTER 2020-01-29 18:53 | Emergency (ER) | payer MEDICARE ==
--- NOTE | 2020-01-29 21:43 | Emergency Department Report ---
ED General Adult HPI - General Chief complaint: Headache Stated complaint: FEELING SICK Time Seen by Provider: 01/29/20 21:30 Source: patient Mode of arrival: Ambulatory Limitations: No Limitations - History of Present Illness Initial comments: 64-year-old female with past medical history of COPD/asthma, bronchitis, anxiety, hypercholesterolemia presents emergency department complaining of a 2 to 3-day history of cough with mucus production duction and occasional chills. She reports no chest pain or shortness of breath no hemoptysis no hematemesis no fever, myalgias or sweats. She reports no tobacco abuse no foreign travel no known sick contacts. No palliative or provocative factors are noted. And she has attempted nothing to alleviate her symptom. She reports no, blurred vision no presyncope no ear pain does have a scratchy for throat and gets an occasional dull headache Improves with: none Worsens with: none Associated Symptoms: denies other symptoms - Related Data Home Medications Medication Instructions Recorded Confirmed Last Taken raNITIdine HCl [Zantac] 150 mg PO BID 12/24/18 05/27/19 12/25/18 08:00 lamoTRIgine [LaMICtal] 100 mg PO QDAY 12/25/18 05/27/19 12/25/18 08:00 Duloxetine HCl [Drizalma Sprinkle] 60 mg PO DAILY 05/27/19 05/27/19 Unknown Ergocalciferol (Vitamin D2) 50,000 unit PO QWEEK 05/27/19 05/27/19 Unknown [Drisdol] Gabapentin 300 mg PO TID 05/27/19 05/27/19 Unknown [place] Carbonate [Eskalith] 150 mg PO BID 05/27/19 05/27/19 Unknown Montelukast Sodium 10 mg PO DAILY 05/27/19 05/27/19 Unknown Tolterodine Tartrate 2 mg PO BID 05/27/19 05/27/19 Unknown Trazodone HCl 100 mg PO QHS 05/27/19 05/27/19 Unknown hydrOXYzine PAMOATE [Vistaril] 50 mg PO QID 05/27/19 05/27/19 Unknown Previous Rx's Medication Instructions Recorded Last Taken Type Dicyclomine [Bentyl] 20 mg PO Q6H PRN #30 tablet 09/13/19 Unknown Rx Diphenoxylate/Atropine [Lomotil] 1 - 2 tab PO Q4H PRN #15 tablet 09/13/19 Unknown Rx Ketorolac [Toradol] 10 mg PO Q8H PRN #15 tablet 09/13/19 Unknown Rx Ondansetron [Zofran ODT TAB] 4 mg PO Q6HR PRN #20 tab.rapdis 09/13/19 Unknown Rx metroNIDAZOLE [Flagyl TAB] 500 mg PO Q8HR #30 tablet 09/13/19 Unknown Rx Acetaminophen [Acetaminophen TAB] 650 mg PO Q4H PRN tablet 01/09/20 Unknown Rx Azithromycin [Zithromax TAB] 500 mg PO QDAY #3 tablet 01/09/20 Unknown Rx Sulfamethoxazole/Trimethoprim 1 each PO BID #14 tablet 01/09/20 Unknown Rx [Bactrim DS TAB] guaiFENesin DM [Guaifenesin Dm 10 ml PO Q4H PRN #1 oral.liqd 01/09/20 Unknown Rx Syrup] methylPREDNISolone [Medrol 4MG 4 mg PO DAILY #21 tab.ds.pk 01/09/20 Unknown Rx DOSEPAK (21 tabs)] Albuterol Mdi (or & Nicu Only) 1 puff IH Q4-6H PRN #1 inha 01/29/20 Unknown Rx [ProAir HFA Inhaler] Benzonatate [Tessalon Perles] 100 mg PO Q8HR #20 capsule 01/29/20 Unknown Rx predniSONE [Deltasone] 20 mg PO QDAY #5 tab 01/29/20 Unknown Rx Allergies Allergy/AdvReac Type Severity Reaction Status Date / Time No Known Allergies Allergy Verified 12/26/18 00:02 ED Review of Systems ROS: Stated complaint: FEELING SICK Other details as noted in HPI Comment: All other systems reviewed and negative ED Past Medical Hx - Past Medical History Previous Medical History?: Yes Hx Hypertension: Yes Hx GERD: Yes Hx Arthritis: Yes Hx Psychiatric Treatment: Yes (ANXIETY) Hx Asthma: Yes Hx COPD: Yes Additional medical history: HIGH CHOLESTEROL - Surgical History Past Surgical History?: Yes Additional Surgical History: LAZARO KNEE SURGERY - Social History Smoking Status: Never Smoker Substance Use Type: None - Medications Home Medications: Home Medications Medication Instructions Recorded Confirmed Last Taken Type raNITIdine HCl [Zantac] 150 mg PO BID 12/24/18 05/27/19 12/25/18 08:00 History lamoTRIgine [LaMICtal] 100 mg PO QDAY 12/25/18 05/27/19 12/25/18 08:00 History Duloxetine HCl [Drizalma Sprinkle] 60 mg PO DAILY 05/27/19 05/27/19 Unknown History Ergocalciferol (Vitamin D2) 50,000 unit PO QWEEK 05/27/19 05/27/19 Unknown History [Drisdol] Gabapentin 300 mg PO TID 05/27/19 05/27/19 Unknown History [place] Carbonate [Eskalith] 150 mg PO BID 05/27/19 05/27/19 Unknown History Montelukast Sodium 10 mg PO DAILY 05/27/19 05/27/19 Unknown History Tolterodine Tartrate 2 mg PO BID 05/27/19 05/27/19 Unknown History Trazodone HCl 100 mg PO QHS 05/27/19 05/27/19 Unknown History hydrOXYzine PAMOATE [Vistaril] 50 mg PO QID 05/27/19 05/27/19 Unknown History Dicyclomine [Bentyl] 20 mg PO Q6H PRN #30 tablet 09/13/19 Unknown Rx Diphenoxylate/Atropine [Lomotil] 1 - 2 tab PO Q4H PRN #15 tablet 09/13/19 Unknown Rx Ketorolac [Toradol] 10 mg PO Q8H PRN #15 tablet 09/13/19 Unknown Rx Ondansetron [Zofran ODT TAB] 4 mg PO Q6HR PRN #20 tab.rapdis 09/13/19 Unknown Rx metroNIDAZOLE [Flagyl TAB] 500 mg PO Q8HR #30 tablet 09/13/19 Unknown Rx Acetaminophen [Acetaminophen TAB] 650 mg PO Q4H PRN tablet 01/09/20 Unknown Rx Azithromycin [Zithromax TAB] 500 mg PO QDAY #3 tablet 01/09/20 Unknown Rx Sulfamethoxazole/Trimethoprim 1 each PO BID #14 tablet 01/09/20 Unknown Rx [Bactrim DS TAB] guaiFENesin DM [Guaifenesin Dm 10 ml PO Q4H PRN #1 oral.liqd 01/09/20 Unknown Rx Syrup] methylPREDNISolone [Medrol 4MG 4 mg PO DAILY #21 tab.ds.pk 01/09/20 Unknown Rx DOSEPAK (21 tabs)] Albuterol Mdi (or & Nicu Only) 1 puff IH Q4-6H PRN #1 inha 01/29/20 Unknown Rx [ProAir HFA Inhaler] Benzonatate [Tessalon Perles] 100 mg PO Q8HR #20 capsule 01/29/20 Unknown Rx predniSONE [Deltasone] 20 mg PO QDAY #5 tab 01/29/20 Unknown Rx ED Physical Exam - General Limitations: No Limitations General appearance: alert, in no apparent distress - Head Head exam: Present: atraumatic, normocephalic - Eye Eye exam: Present: normal appearance, EOMI - ENT ENT exam: Present: mucous membranes moist, other (Pharynx is erythematous no exudate no swelling) - Neck Neck exam: Present: normal inspection, full ROM - Respiratory Respiratory exam: Present: normal lung sounds bilaterally. Absent: respiratory distress, wheezes, rales, rhonchi, stridor - Cardiovascular Cardiovascular Exam: Present: regular rate, normal rhythm. Absent: systolic murmur, diastolic murmur, rubs, gallop - GI/Abdominal GI/Abdominal exam: Present: soft, normal bowel sounds - Extremities Exam Extremities exam: Present: normal inspection - Back Exam Back exam: Present: normal inspection - Neurological Exam Neurological exam: Present: alert, oriented X3 - Psychiatric Psychiatric exam: Present: normal affect, normal mood - Skin Skin exam: Present: warm, dry, intact, normal color. Absent: rash ED Course Vital Signs 01/29/20 20:14 Temperature 97.8 F Pulse Rate 107 H Respiratory 18 Rate Blood Pressure 136/69 O2 Sat by Pulse 95 Oximetry ED Medical Decision Making - Radiology Data Radiology results: report reviewed Print Report Referring Physician:ANN-MARIE ZAPATAPatient Name:CHAU FERGUSONPatient ID:[id number] of :[id number]:FemaleAccession:[id number] Date:[id number] Status:Finalized Findings [facility] [address] [place] [address] XRay Report Signed Patient: CHAU FERGUSON MR#: [id number] : 1955 Acct:[id number] Age/Sex: 64 / F ADM Date: 01/29/20 Loc: ED Attending Dr: Ordering Physician: TYLER POLO Date of Service: 01/29/20 Procedure(s): XR chest routine 2V Accession Number(s): [id number] cc: TYLER POLO Fluoro Time In Minutes: CHEST 2 VIEWS INDICATION / CLINICAL INFORMATION: Headache, nausea, cough. COMPARISON: 01/07/2020 FINDINGS: SUPPORT DEVICES: None. HEART / MEDIASTINUM: No significant abnormality. LUNGS / PLEURA: No significant pulmonary or pleural abnormality. No pneumothorax. ADDITIONAL FINDINGS: No significant additional findings. IMPRESSION: 1. No acute findings. No interval change. Signer Name: Shira Gilliland MD Signed: 01/29/2020 10:03 PM Workstation Name: [id number] Transcribed By: Dictated By: Shira Gilliland MD Electronically Authenticated By: Shira Gilliland MD Signed Date/Time: 01/29/202202 DD/ 01 TD/TT: - Medical Decision Making This patient presents with acute cough, most consistent with bronchitis. Differential diagnosis includes bronchitis, asthma, hyperreactive airway disease, allergies. Presentation not consistent with acute bacterial pneumonia, influenza, asthma, transient airway hyperresponsiveness. Presentation not consistent with chronic causes of cough (including GERD, asthma, postnasal discharge, medication side effect, CHF, lung cancer or mass). CXR was obtained see above for findings Plan: , supportive care, reassess Critical care attestation.: If time is entered above; I have spent that time in minutes in the direct care of this critically ill patient, excluding procedure time. ED Disposition Clinical Impression: Bronchitis, COPD exacerbation Disposition: DC-01 TO HOME OR SELFCARE Is pt being admited?: No Does the pt Need Aspirin: No Condition: Stable Instructions: Chronic Bronchitis (ED), Chronic Obstructive Pulmonary Disease (ED) Prescriptions: predniSONE [Deltasone] 20 mg PO QDAY #5 tab Albuterol Mdi (or & Nicu Only) [ProAir HFA Inhaler] 1 puff IH Q4-6H PRN #1 inha PRN Reason: Cough Benzonatate [Tessalon Perles] 100 mg PO Q8HR #20 capsule Referrals: PRIMARY CARE, [Primary Care Provider] - 3-5 Days [facility] [Provider Group] - 3-5 Days
--- NOTE | 2020-01-29 22:07 | XRay Report ---
CHEST 2 VIEWS INDICATION / CLINICAL INFORMATION: Headache, nausea, cough. COMPARISON: 01/07/2020 FINDINGS: SUPPORT DEVICES: None. HEART / MEDIASTINUM: No significant abnormality. LUNGS / PLEURA: No significant pulmonary or pleural abnormality. No pneumothorax. ADDITIONAL FINDINGS: No significant additional findings. IMPRESSION: 1. No acute findings. No interval change. Signer Name: Shira Gilliland MD Signed: 01/29/2020 10:03 PM Workstation Name: [id number]
[2020-01-30 00:19] VITALS: BP 126/78
== END 2020-01-29 23:47 | disposition home or self-care (01) ==
LOC: ED 18:53
DX: J44.1 Chronic obstructive pulmonary disease with (acute) exacerbation (principal); I10 Essential (primary) hypertension; K21.9 Gastro-esophageal reflux disease without esophagitis; M19.91 Primary osteoarthritis, unspecified site; F41.9 Anxiety disorder, unspecified; Z98.890 Other specified postprocedural states; Z79.2 Long term (current) use of antibiotics; Z79.899 Other long term (current) drug therapy
CPT/HCPCS: 71046

== ENCOUNTER 2020-03-13 14:33 | Inpatient (IN) | payer MEDICARE ==
--- NOTE | 2020-03-13 16:10 | XRay Report ---
CHEST 2 VIEWS INDICATION / CLINICAL INFORMATION: sob. COMPARISON: 01/29/20 FINDINGS: SUPPORT DEVICES: None. HEART / MEDIASTINUM: No significant abnormality. LUNGS / PLEURA: Bilateral patchy pulmonary opacities, left greater than right. No pneumothorax. ADDITIONAL FINDINGS: No significant additional findings. IMPRESSION: 1. Bilateral pneumonia with features suggesting possible atypical/viral etiology. Signer Name: Ping Taylor MD Signed: 03/13/2020 4:06 PM Workstation Name: [id number]
[2020-03-13] MEDS ORDERED: ALBUTEROL 2.5 MG/3 ML NEBU IH ONE (16:16)
[2020-03-13] MEDS ORDERED: SODIUM CHLORIDE 0.9% 500 ML 500 ML IV ONE (16:16)
[2020-03-13] MEDS ORDERED: ACETAMINOPHEN 325 MG TAB PO ONE (16:17)
[2020-03-13] MEDS ORDERED: ONDANSETRON 4 MG/2 ML INJ IV ONE (16:17)
[2020-03-13] MEDS ORDERED: dexAMETHasone 4 MG/ML VIAL IV ONE (16:17)
--- NOTE | 2020-03-13 16:18 | Emergency Department Report ---
ED General Adult HPI - General Chief complaint: Pain General Stated complaint: NAUSEA/PAIN/BREATHING PROBLEMS PUI?: Yes Time Seen by Provider: 03/13/20 16:04 Source: patient, RN notes reviewed, old records reviewed Mode of arrival: Stretcher Limitations: Physical Limitation - History of Present Illness Initial comments: The patient was evaluated in the emergency department for symptoms described in the history of present illness. He/she was evaluated in the context of the global COVID-19 pandemic, which necessitated consideration that the patient might be at risk for infection with the virus that causes COVID-19. Institu tional protocols and algorithms that pertain to the evaluation of patients at risk for COVID-19 are in a state of rapid change based on information released by regulatory bodies including the CDC and federal and state organizations. These policies and algorithms were followed during the patient's care in the emergency department. Please note that these policies, procedures and recommendations changed on a rapid basis. During the entire history and physical examination, I had on complete personal protective equipment. Patient is a 64-year-old female. She has a history of COPD. She currently does not have access to home oxygen. She was admitted to this hospital December 2019 for suspected COVID-19, and found to have COPD exacerbation with probable community-acquired pneumonia. She had a negative Covid test at that time. Patient presents to the ER today with 5 days of symptoms, including cough, body aches, loss of taste, loss of smell, shortness of breath, loose diarrhea. She states that she has been self isolating self quarantining. She is not on oxygen at home. Her symptoms are constant. They worsen with physical exertion. They decreased with rest. -: Gradual, days(s) Location: back, left, right, upper extremity, lower extremity Radiation: non-radiation Quality: aching Consistency: constant Improves with: none Worsens with: none - Related Data Home Medications Medication Instructions Recorded Confirmed Last Taken raNITIdine HCl [Zantac] 150 mg PO BID 12/24/18 05/27/19 12/25/18 08:00 lamoTRIgine [LaMICtal] 100 mg PO QDAY 12/25/18 05/27/19 12/25/18 08:00 Duloxetine HCl [Drizalma Sprinkle] 60 mg PO DAILY 05/27/19 05/27/19 Unknown Ergocalciferol (Vitamin D2) 50,000 unit PO QWEEK 05/27/19 05/27/19 Unknown [Drisdol] Gabapentin 300 mg PO TID 05/27/19 05/27/19 Unknown [place] Carbonate [Eskalith] 150 mg PO BID 05/27/19 05/27/19 Unknown Montelukast Sodium 10 mg PO DAILY 05/27/19 05/27/19 Unknown Tolterodine Tartrate 2 mg PO BID 05/27/19 05/27/19 Unknown Trazodone HCl 100 mg PO QHS 05/27/19 05/27/19 Unknown hydrOXYzine PAMOATE [Vistaril] 50 mg PO QID 05/27/19 05/27/19 Unknown Previous Rx's Medication Instructions Recorded Last Taken Type Dicyclomine [Bentyl] 20 mg PO Q6H PRN #30 tablet 09/13/19 Unknown Rx Diphenoxylate/Atropine [Lomotil] 1 - 2 tab PO Q4H PRN #15 tablet 09/13/19 Unkn own Rx Ketorolac [Toradol] 10 mg PO Q8H PRN #15 tablet 09/13/19 Unknown Rx Ondansetron [Zofran ODT TAB] 4 mg PO Q6HR PRN #20 tab.rapdis 09/13/19 Unknown Rx metroNIDAZOLE [Flagyl TAB] 500 mg PO Q8HR #30 tablet 09/13/19 Unknown Rx Acetaminophen [Acetaminophen TAB] 650 mg PO Q4H PRN tablet 01/09/20 Unknown Rx Azithromycin [Zithromax TAB] 500 mg PO QDAY #3 tablet 01/09/20 Unknown Rx Sulfamethoxazole/Trimethoprim 1 each PO BID #14 tablet 01/09/20 Unknown Rx [Bactrim DS TAB] guaiFENesin DM [Guaifenesin Dm 10 ml PO Q4H PRN #1 oral.liqd 01/09/20 Unknown Rx Syrup] methylPREDNISolone [Medrol 4MG 4 mg PO DAILY #21 tab.ds.pk 01/09/20 Unknown Rx DOSEPAK (21 tabs)] Albuterol Mdi (or & Nicu Only) 1 puff IH Q4-6H PRN #1 inha 01/29/20 Unknown Rx [ProAir HFA Inhaler] Benzonatate [Tessalon Perles] 100 mg PO Q8HR #20 capsule 01/29/20 Unknown Rx predniSONE [Deltasone] 20 mg PO QDAY #5 tab 01/29/20 Unknown Rx Allergies Allergy/AdvReac Type Severity Reaction Status Date / Time No Known Allergies Allergy Verified 12/26/18 00:02 ED Review of Systems ROS: Stated complaint: NAUSEA/PAIN/BREATHING PROBLEMS Other details as noted in HPI Constitutional: malaise, weakness ENT: congestion Respiratory: cough, shortness of breath, SOB with exertion, SOB at rest, wheezing Cardiovascular: dyspnea on exertion. denies: chest pain Gastrointestinal: nausea, diarrhea. denies: abdominal pain Genitourinary: dysuria Musculoskeletal: back pain, arthralgia, myalgia Neurological: headache Hematological/Lymphatic: denies: easy bleeding ED Past Medical Hx - Past Medical History Previous Medical History?: Yes Hx Hypertension: Yes Hx GERD: Yes Hx Arthritis: Yes Hx Psychiatric Treatment: Yes (ANXIETY) Hx Asthma: Yes Hx COPD: Yes Additional medical history: HIGH CHOLESTEROL - Surgical History Past Surgical History?: Yes Additional Surgical History: LAZARO KNEE SURGERY - Social History Smoking Status: Never Smoker Substance Use Type: None - Medications Home Medications: Home Medications Medication Instructions Recorded Confirmed Last Taken Type raNITIdine HCl [Zantac] 150 mg PO BID 12/24/18 05/27/19 12/25/18 08:00 History lamoTRIgine [LaMICtal] 100 mg PO QDAY 12/25/18 05/27/19 12/25/18 08:00 History Duloxetine HCl [Drizalma Sprinkle] 60 mg PO DAILY 05/27/19 05/27/19 Unknown History Ergocalciferol (Vitamin D2) 50,000 unit PO QWEEK 05/27/19 05/27/19 Unknown History [Drisdol] Gabapentin 300 mg PO TID 05/27/19 05/27/19 Unknown History [place] Carbonate [Eskalith] 150 mg PO BID 05/27/19 05/27/19 Unknown History Montelukast Sodium 10 mg PO DAILY 05/27/19 05/27/19 Unknown History Tolterodine Tartrate 2 mg PO BID 05/27/19 05/27/19 Unknown History Trazodone HCl 100 mg PO QHS 05/27/19 05/27/19 Unknown History hydrOXYzine PAMOATE [Vistaril] 50 mg PO QID 05/27/19 05/27/19 Unknown History Dicyclomine [Bentyl] 20 mg PO Q6H PRN #30 tablet 09/13/19 Unknown Rx Diphenoxylate/Atropine [Lomotil] 1 - 2 tab PO Q4H PRN #15 tablet 09/13/19 Unknown Rx Ketorolac [Toradol] 10 mg PO Q8H PRN #15 tablet 09/13/19 Unknown Rx Ondansetron [Zofran ODT TAB] 4 mg PO Q6HR PRN #20 tab.rapdis 09/13/19 Unknown Rx metroNIDAZOLE [Flagyl TAB] 500 mg PO Q8HR #30 tablet 09/13/19 Unknown Rx Acetaminophen [Acetaminophen TAB] 650 mg PO Q4H PRN tablet 01/09/20 Unknown Rx Azithromycin [Zithromax TAB] 500 mg PO QDAY #3 tablet 01/09/20 Unknown Rx Sulfamethoxazole/Trimethoprim 1 each PO BID #14 tablet 01/09/20 Unknown Rx [Bactrim DS TAB] guaiFENesin DM [Guaifenesin Dm 10 ml PO Q4H PRN #1 oral.liqd 01/09/20 Unknown Rx Syrup] methylPREDNISolone [Medrol 4MG 4 mg PO DAILY #21 tab.ds.pk 01/09/20 Unknown Rx DOSEPAK (21 tabs)] Albuterol Mdi (or & Nicu Only) 1 puff IH Q4-6H PRN #1 inha 01/29/20 Unknown Rx [ProAir HFA Inhaler] Benzonatate [Tessalon Perles] 100 mg PO Q8HR #20 capsule 01/29/20 Unknown Rx predniSONE [Deltasone] 20 mg PO QDAY #5 tab 01/29/20 Unknown Rx ED Physical Exam - General Limitations: Physical Limitation General appearance: alert, anxious, in distress - Head Head exam: Present: atraumatic, normocephalic - Eye Eye exam: Present: normal appearance, EOMI. Absent: nystagmus - ENT ENT exam: Present: normal exam, mucous membranes moist, normal external ear exam - Neck Neck exam: Present: normal inspection, full ROM. Absent: tenderness, meningismus - Respiratory Respiratory exam: Present: rhonchi, accessory muscle use. Absent: respiratory distress - Cardiovascular Cardiovascular Exam: Present: normal rhythm, normal heart sounds. Absent: systolic murmur, diastolic murmur, rubs, gallop - GI/Abdominal GI/Abdominal exam: Present: soft, normal bowel sounds. Absent: distended, tenderness, guarding, rebound, rigid, pulsatile mass - Extremities Exam Extremities exam: Present: normal inspection, full ROM, other (2+ pulses noted in the bilateral upper and lower extremities. There is no palpable cord. negative Homans sign. Muscular compartments are soft. The pelvis is stable.). Absent: pedal edema, calf tenderness - Back Exam Back exam: Present: normal inspection. Absent: tenderness, CVA tenderness (R), CVA tenderness (L), paraspinal tenderness, vertebral tenderness - Neurological Exam Neurological exam: Present: alert, other (No facial droop. Tongue midline. Extraocular movements intact bilaterally. Facial sensation intact to light touch in V1, V2, V3 distribution bilaterally. 5 and a 5 strength in 4 extremities. Sensation intact to light touch in 4 extremities.) - Psychiatric Psychiatric exam: Present: anxious - Skin Skin exam: Present: warm, dry, intact, normal color. Absent: rash ED Course Vital Signs 03/13/20 03/13/20 03/13/20 15:14 16:30 16:59 Temperature 97.8 F Pulse Rate 121 H 116 H Pulse Rate [ 105 H Anterior Bilateral Throughout] Respiratory 22 25 H Rate Respiratory 20 Rate [Anterior Bilateral Throughout] Blood Pressure 129/71 120/61 O2 Sat by Pulse 86 90 Oximetry 03/13/20 03/13/20 03/13/20 17:15 19:00 19:15 Temperature Pulse Rate 109 H 122 H 113 H Pulse Rate [ Anterior Bilateral Throughout] Respiratory 17 30 H 22 Rate Respiratory Rate [Anterior Bilateral Throughout] Blood Pressure 125/52 132/75 134/74 O2 Sat by Pulse 93 91 93 Oximetry 03/13/20 03/13/20 03/13/20 19:30 19:45 20:00 Temperature Pulse Rate 111 H 109 H 108 H Pulse Rate [ Anterior Bilateral Throughout] Respiratory 26 H 26 H 24 Rate Respiratory Rate [Anterior Bilateral Throughout] Blood Pressure 141/69 140/67 135/64 O2 Sat by Pulse 93 90 92 Oximetry 03/13/20 03/13/20 03/13/20 20:15 20:43 20:44 Temperature 98.2 F Pulse Rate 108 H Pulse Rate [ Anterior Bilateral Throughout] Respiratory 27 H 16 Rate Respiratory Rate [Anterior Bilateral Throughout] Blood Pressure 134/70 O2 Sat by Pulse 92 95 Oximetry - Reevaluation(s) Reevaluation #1: 03/13/20 16:42 Differential diagnosis, including but not limited to: COVID-19, pneumonia, urinary tract infection, electrolyte derangement, dehydration, hypoxic respiratory failure Assessment and plan: 64-year-old female, not on oxygen at home secondary to not having home oxygen machine, presenting with hypoxia, cough, body aches, diarrhea, loss of taste, loss of smell, bilateral atypical pneumonia on x-ray of the chest, highly suspicious for coronavirus 19 symptomatology. Given hypoxia, patient meets criteria for admission and hospitalization. Place patient on isolation, administer supplemental oxygen, on 3 L, saturating at 93 to 94%, initiate steroid therapy, empiric antibiotics, gentle fluids, and supportive care. Place infectious disease consult as a courtesy for the inpatient team. Have counseled patient that we recommend admission for the aforementioned. She is amenable to this plan of care. Sent laboratory studies to risk stratify for cytokine storm. Once initial diagnostics have resulted, we will discuss with the inpatient hospital physician to arrange admission. Reevaluation #2: 03/13/20 17:19 Laboratory studies are reviewed and appreciated. Hypokalemia will be addressed. Hospital physician, Dr. Avitia, to admit patient to the medical service. ED Medical Decision Making - Lab Data Result diagrams: 03/13/20 16:24 03/13/20 16:24 Vital Signs 03/13/20 15:14 Temperature 97.8 F Pulse Rate 121 H Respiratory 22 Rate Blood Pressure 129/71 O2 Sat by Pulse 86 Oximetry - EKG Data -: EKG Interpreted by [place] EKG shows normal: sinus rhythm Rate: normal - EKG Data 03/13/20 21:40 Sinus rhythm, tachycardia, 105 bpm, normal axis, QTC prolonged, 505 ms, nonspecific T wave abnormalities. This EKG is abnormal. There is no endorsement of chest pain. This EKG is not a STEMI. - Radiology Data Radiology results: report reviewed, image reviewed Print Report Referring Physician: NIKOLE ALFRED Patient Name: CHAU FERGUSON Date of : 1955 Sex: Female Report Date: 2020-03-13 Report Status: Finalized Findings [address] [place] [address] XRay Report Signed Patient: CHAU FERGUSON MR#: [id number] : 1955 Acct:[id number] Age/Sex: 64 / F ADM Date: 03/13/20 Loc: ED Attending Dr: Ordering Physician: TYLER GARCIA Date of Service: 03/13/20 Procedure(s): XR chest routine 2V Accession Number(s): [id number] cc: TYLER GARCIA Fluoro Time In Minutes: CHEST 2 VIEWS INDICATION / CLINICAL INFORMATION: sob. COMPARISON: 01/29/20 FINDINGS: SUPPORT DEVICES: None. HEART / MEDIASTINUM: No significant abnormality. LUNGS / PLEURA: Bilateral patchy pulmonary opacities, left greater than right. No pneumothorax. ADDITIONAL FINDINGS: No significant additional findings. IMPRESSION: 1. Bilateral pneumonia with features suggesting possible atypical/viral etiology. Signer Name: Ping Taylor MD Signed: 03/13/2020 4:06 PM Workstation Name: [id number] Transcribed By: DT Dictated By: Jimmy Taylor MD Electronically Authenticated By: Jimmy Taylor MD Signed Date/Time: 03/13/20 1606 DD/ 1605 TD/TT: Critical Care Time: Yes Critical care time in (mins) excluding proc time.: 35 Critical care attestation.: If time is entered above; I have spent that time in minutes in the direct care of this critically ill patient, excluding procedure time. ED Disposition Clinical Impression: Suspected COVID-19 virus infection, Hypoxia, Shortness of breath, Respiratory failure, Hypokalemia Disposition: OP ADMIT IP TO THIS HOSP Is pt being admited?: Yes Does the pt Need Aspirin: No Condition: Fair
[2020-03-13] MEDS ORDERED: cefTRIAXone/NS 1 GM/50 ML 1 GM/50 ML BAG IV ONE (16:39)
[2020-03-13 16:47] LABS: Basophils % (Auto) 0.2 % (0.0-1.8); Hematocrit 40.7 % (30.3-42.9); Hemoglobin 13.5 gm/dl (10.1-14.3); Lymphocytes # (Auto) 0.6 K/mm3 (1.2-5.4); Lymphocytes % (Auto) 8.5 % (13.4-35.0); Mean Corpuscular HGB Conc 33 % (30-34); Mean Corpuscular Volume 84 fl (79-97); Monocytes # (Auto) 0.4 K/mm3 (0.0-0.8); Monocytes % (Auto) 6.4 % (0.0-7.3); Platelet Count 205 K/mm3 (140-440); Red Blood Count 4.85 M/mm3 (3.65-5.03); Red Cell Distribution Width 16.8 % (13.2-15.2)
[2020-03-13 16:50] LABS: INR 0.89 (0.87-1.13)
[2020-03-13 17:08] LABS: Alanine Aminotransferase 15 units/L (7-56); Albumin 3.7 g/dL (3.9-5); BUN/Creatinine Ratio 11; Blood Urea Nitrogen 9 mg/dL (7-17); Calcium 9.3 mg/dL (8.4-10.2); Hemolysis Index 14
[2020-03-13 17:09] LABS: C-Reactive Protein 8.1 mg/dL (0.00-1.30)
[2020-03-13] MEDS ORDERED: POTASSIUM CHLORIDE ER 20 MEQ TAB PO ONE (17:19)
[2020-03-13] MEDS ORDERED: ALBUTEROL 2.5 MG/3 ML NEBU IH PRN (17:21)
[2020-03-13] MEDS ORDERED: ONDANSETRON 4 MG ODT TAB PO PRN (17:24)
[2020-03-13] MEDS ORDERED: ALBUTEROL 8.5 GM MDI INHALATION IH PRN (17:24)
--- NOTE | 2020-03-13 17:36 | History and Physical Report ---
History of Present Illness Chief complaint: I cannot breathe and I feel terrible History of present illness: 64 YO Female with COPD, GERD, HTN, HLD, Anxiety, OA, Asthma Mild Intermittent, presents to ED for evaluation. Patient states that she has "not been feeling well" over the past 5 days with persistently worsening symptoms over the same timeframe. Patient states that she has experienced subjective fever, fatigue, muscle aches, generalized weakness, malaise, dry cough, decreased exercise tolerance, loss of sense of smell, loss of sense of taste, shortness of breath, nausea, multiple loose stools, and diminished oral intake. PT transported to [facility] via private vehicle for further care and evaluation of the aforementioned symptoms. The patient was seen and evaluated in the emergency department. All lab and imaging studies reviewed. The patient was found to be tachypneic with respiratory rate in the 30s as well as tachycardic with a pulse rate of 121, and a temperature of 101.9 F. Patient also found to have a pulse oximetry of 86% with exertion while on room air which is consistent with acute hypoxemic respiratory failure. The patient was also found to have a chest x-ray with bilateral pneumonia as well as as well as sepsis. Patient admitted to medical floor and initiated sepsis protocol. Patient also initiated on coronavirus protocol. Patient denies chills, chest pain, palpitations, productive cough, skin rash, recent ill contacts, or known exposure to COVID-19. Prior admission on 01/07/2020 reviewed. All medication listed at time of admission has been reconciled. Advanced care planning conducted in ED. Past History Past Medical History: arthritis, COPD, GERD, hypertension, hyperlipidemia, other (See HPI) Past Surgical History: total knee replacement Social history: single. denies: smoking, alcohol abuse Family history: hypertension Medications and Allergies Allergies Allergy/AdvReac Type Severity Reaction Status Date / Time No Known Allergies Allergy Verified 12/26/18 00:02 Home Medications Medication Instructions Recorded Confirmed Last Taken Type raNITIdine HCl [Zantac] 150 mg PO BID 12/24/18 05/27/19 12/25/18 08:00 History lamoTRIgine [LaMICtal] 100 mg PO QDAY 12/25/18 05/27/19 12/25/18 08:00 History Duloxetine HCl [Drizalma Sprinkle] 60 mg PO DAILY 05/27/19 05/27/19 Unknown History Ergocalciferol (Vitamin D2) 50,000 unit PO QWEEK 05/27/19 05/27/19 Unknown History [Drisdol] Gabapentin 300 mg PO TID 05/27/19 05/27/19 Unknown History Olivia Lopez De Gutierrez Carbonate [Eskalith] 150 mg PO BID 05/27/19 05/27/19 Unknown History Montelukast Sodium 10 mg PO DAILY 05/27/19 05/27/19 Unknown History Tolterodine Tartrate 2 mg PO BID 05/27/19 05/27/19 Unknown History Trazodone HCl 100 mg PO QHS 05/27/19 05/27/19 Unknown History hydrOXYzine PAMOATE [Vistaril] 50 mg PO QID 05/27/19 05/27/19 Unknown History Dicyclomine [Bentyl] 20 mg PO Q6H PRN #30 tablet 09/13/19 Unknown Rx Diphenoxylate/Atropine [Lomotil] 1 - 2 tab PO Q4H PRN #15 tablet 09/13/19 Unknown Rx Ketorolac [Toradol] 10 mg PO Q8H PRN #15 tablet 09/13/19 Unknown Rx Ondansetron [Zofran ODT TAB] 4 mg PO Q6HR PRN #20 tab.rapdis 09/13/19 Unknown Rx metroNIDAZOLE [Flagyl TAB] 500 mg PO Q8HR #30 tablet 09/13/19 Unknown Rx Acetaminophen [Acetaminophen TAB] 650 mg PO Q4H PRN tablet 01/09/20 Unknown Rx Azithromycin [Zithromax TAB] 500 mg PO QDAY #3 tablet 01/09/20 Unknown Rx Sulfamethoxazole/Trimethoprim 1 each PO BID #14 tablet 01/09/20 Unknown Rx [Bactrim DS TAB] guaiFENesin DM [Guaifenesin Dm 10 ml PO Q4H PRN #1 oral.liqd 01/09/20 Unknown Rx Syrup] methylPREDNISolone [Medrol 4MG 4 mg PO DAILY #21 tab.ds.pk 01/09/20 Unknown Rx DOSEPAK (21 tabs)] Albuterol Mdi (or & Nicu Only) 1 puff IH Q4-6H PRN #1 inha 01/29/20 Unknown Rx [ProAir HFA Inhaler] Benzonatate [Tessalon Perles] 100 mg PO Q8HR #20 capsule 01/29/20 Unknown Rx predniSONE [Deltasone] 20 mg PO QDAY #5 tab 01/29/20 Unknown Rx Active Meds: Active Medications Acetaminophen (Acetaminophen 325 Mg Tab) 650 mg PO Q4H PRN PRN Reason: Pain MILD(1-3)/Fever >100.5/CARIAS Albuterol (Albuterol 2.5 Mg/3 Ml Nebu) 2.5 mg IH Q4HRT PRN PRN Reason: Shortness Of Breath Benzonatate (Benzonatate 100 Mg Cap) 100 mg PO Q8HR [facility] Ergocalciferol (Ergocalciferol (Vit D2) 50,000 Unit Cap) 50,000 unit PO QWEEK [facility] Famotidine (Famotidine 10 Mg Tab) 10 mg PO BID [facility] Gabapentin (Gabapentin 300 Mg Cap) 300 mg PO TID [facility] Guaifenesin (Guaifenesin Dm 200/20 Mg Oral Liqd 10 Ml) 10 ml PO Q4H PRN PRN Reason: Cough Hydroxyzine Pamoate (Hydroxyzine Pamoate 50 Mg Cap) 50 mg PO QID [facility] Azithromycin 500 mg/ Sodium (Chloride) 250 mls @ 250 mls/hr IV ONCE ONE; Protocol Stop: 03/13/20 18:38 Potassium Chloride (Kcl 10meq/100ml) 10 meq in 100 mls @ 100 mls/hr IV Q1H SANDY Stop: 03/13/20 19:59 Lamotrigine (Lamotrigine 100 Mg Tab) 100 mg PO QDAY [facility] Olivia Lopez De Gutierrez Carbonate (Olivia Lopez De Gutierrez Carbonate 150 Mg Cap) 150 mg PO BID [facility] Miscellaneous Medication (Duloxetine Hcl [Drizalma Sprinkle]) 60 mg PO DAILY [facility] Miscellaneous Medication (Ranitidine Hcl [Zantac]) 150 mg PO BID [facility] Miscellaneous Medication (Tolterodine Tartrate [Tolterodine Tartrate]) 2 mg PO BID [facility] Montelukast Sodium (Montelukast 10 Mg Tab) 10 mg PO DAILY [facility] Ondansetron HCl (Ondansetron 4 Mg/2 Ml Inj) 4 mg IV Q8H PRN PRN Reason: Nausea And Vomiting Ondansetron HCl (Ondansetron 4 Mg Odt Tab) 4 mg PO Q6HR PRN PRN Reason: Nausea Sodium Chloride (Sodium Chloride 0.9% 10 Ml Flush Syringe) 10 ml IV BID [facility] Sodium Chloride (Sodium Chloride 0.9% 10 Ml Flush Syringe) 10 ml IV PRN PRN PRN Reason: LINE FLUSH Trazodone HCl (Trazodone 100 Mg Tab) 100 mg PO QHS [facility] Review of Systems Constitutional: fever, fatigue, weakness, malaise Ears, nose, mouth and throat: other (Loss of sense of smell, loss of sense of taste), no ear pain, no tinnitis, no decreased hearing, no nasal discharge, no sinus pressure Breasts: no change in shape, no swelling, no mass Cardiovascular: no chest pain, no orthopnea, no palpitations, no rapid/irregular heart beat Respiratory: cough, shortness of breath, no cough with sputum, no excessive sputum Gastrointestinal: nausea, no vomiting, no diarrhea, no constipation Genitourinary Female: no pelvic pain, no flank pain, no dysuria, no urinary frequency, no urgency Rectal: no pain, no incontinence, no bleeding Musculoskeletal: no neck stiffness, no neck pain, no shooting arm pain, no arm numbness/tingling, no low back pain, no leg numbness/tingling Integumentary: no rash, no pruritis, no redness, no sores, no wounds Neurological: no head injury, no transient paralysis, no weakness, no parathesias, no numbness, no seizures Psychiatric: no memory loss, no change in sleep habits, no sleep disturbances, no insomnia, no hypersomnia, no change in libido Endocrine: no cold intolerance, no heat intolerance, no polyphagia, no polydipsia, no excessive sweating, no flushing Hematologic/Lymphatic: no easy bruising, no easy bleeding Allergic/Immunologic: no urticaria, no allergic rhinitis Exam - Constitutional Vitals: Temp Pulse Resp BP Pulse Ox 97.8 F 121 H 22 129/71 86 03/13/20 15:14 03/13/20 15:14 03/13/20 15:14 03/13/20 15:14 03/13/20 15:14 General appearance: Present: mild distress - EENT Eyes: Present: PERRL ENT: hearing intact, clear oral mucosa - Neck Neck: Present: supple, normal ROM - Respiratory Respiratory effort: labored, accessory muscle use Respiratory: bilateral: diminished, rhonchi - Cardiovascular Rhythm: other (Tachycardia) Heart Sounds: Present: S1 & S2. Absent: rub, click - Extremities Extremities: pulses symmetrical, No edema Peripheral Pulses: abnormal (Capillary refill greater than 3.5 seconds) - Abdominal General gastrointestinal: Present: soft, non-tender, non-distended, normal bowel sounds Female genitourinary: Present: normal - Integumentary Integumentary: Present: clear, warm, dry - Musculoskeletal Musculoskeletal: generalized weakness - Psychiatric Psychiatric: appropriate mood/affect, intact judgment & insight, agitated - Neurologic Neurologic: CNII-XII intact, moves all extremities HEART Score - HEART Score Troponin: Troponin T < 0.010 ng/mL (0.00-0.029) 03/13/20 16:24 Results - Labs CBC & Chem 7: 03/13/20 16:24 12 16:24 Labs: Abnormal lab results 03/13/20 03/13/20 12 Range/Units 16:24 16:24 16:24 RDW 16.8 H (13.2-15.2) % Lymph % (Auto) 8.5 L (13.4-35.0) % Lymph # (Auto) 0.6 L (1.2-5.4) K/mm3 Seg Neutrophils % 84.9 H (40.0-70.0) % PT 11.8 L (12.2-14.9) Sec. D-Dimer 234.66 H (0-234) ng/mlDDU Sodium 135 L (137-145) mmol/L Potassium 3.1 L (3.6-5.0) mmol/L Glucose 174 H (65-100) mg/dL Lactate Dehydrogenase 277 H (91-180) units/L C-Reactive Protein 8.00 H (0.00-1.30) mg/dL Albumin 3.7 L (3.9-5) g/dL 03/13/20 Range/Units 16:24 RDW (13.2-15.2) % Lymph % (Auto) (13.4-35.0) % Lymph # (Auto) (1.2-5.4) K/mm3 Seg Neutrophils % (40.0-70.0) % PT (12.2-14.9) Sec. D-Dimer (0-234) ng/mlDDU Sodium (137-145) mmol/L Potassium (3.6-5.0) mmol/L Glucose 174 H (65-100) mg/dL Lactate Dehydrogenase 267 H (91-180) units/L C-Reactive Protein 8.10 H (0.00-1.30) mg/dL Albumin (3.9-5) g/dL Assessment and Plan - Patient Problems (1) Sepsis Current Visit: Yes Status: Acute Plan to address problem: Sepsis protocol: Chest x-ray, CBC, CMP, blood culture, urinalysis, IV fluid resuscitation therapy, IV antibiotic therapy, monitor urine output every shift, monitor fluid balance, strict I's/O, daily weight, maintain mean arterial pressure greater than or equal to 65, serial lactic acid level (2) Acute hypoxemic respiratory failure Current Visit: Yes Status: Acute Plan to address problem: Supplemental oxygen, nebulizer therapy, pulse oximetry, prone position while in bed, pulmonary toilet. (3) Pneumonia Current Visit: Yes Status: Acute Qualifiers: Laterality: bilateral Plan to address problem: Pneumonia protocol: Chest x-ray, CBC, CMP, nebulizer therapy, pulse oximetry, IV antibiotic therapy, blood culture, pulmonary toilet. (4) Suspected COVID-19 virus infection Current Visit: Yes Status: Acute Plan to address problem: Coronavirus protocol: Contact precaution, isolation precautions, IV antibiotic therapy, IV steroid therapy, prone positioning while in bed, coronavirus PCR ordered in the emergency department, prophylactic anticoagulation (5) COPD (chronic obstructive pulmonary disease) Current Visit: Yes Status: Acute Qualifiers: Chronic bronchitis type: unspecified Plan to address problem: IV steroid therapy, supportive care, supplemental oxygen, IV antibiotic therapy. (6) GERD (gastroesophageal reflux disease) Current Visit: Yes Status: Acute Qualifiers: Esophagitis presence: without esophagitis Qualified Code(s): K21.9 - Gastro-esophageal reflux disease without esophagitis Plan to address problem: PPI therapy, supportive care (7) Hypertension Current Visit: Yes Status: Acute Qualifiers: Hypertension type: essential hypertension Qualified Code(s): I10 - Essential (primary) hypertension Plan to address problem: Monitor blood pressure every shift, continue medical management. (8) Hyperlipidemia Current Visit: Yes Status: Acute Qualifiers: Hyperlipidemia type: mixed hyperlipidemia Qualified Code(s): E78.2 - Mixed hyperlipidemia Plan to address problem: Lipid panel, statin therapy, balanced diet, low-cholesterol diet. (9) DVT prophylaxis Current Visit: Yes Status: Acute Plan to address problem: SCD to bilateral lower extremities while in bed, prophylactic anticoagulation (10) Advance care planning Current Visit: Yes Status: Acute Plan to address problem: Disease education conducted, patient is full code, prognosis discussed, care plan discussed, patient knowledges understanding and agreement with care plan, +30 minutes.
[2020-03-13] MEDS ORDERED: AZITHROMYCIN 500 MG in SODIUM CHLORIDE 0.9% 250ML 250 ML IV ONE (17:39)
[2020-03-13] MEDS ORDERED: SODIUM CHLORIDE 0.9% 250ML 250 ML ONE (18:48)
[2020-03-13] MEDS ORDERED: SODIUM CHLORIDE 0.9% 250ML 250 ML IV ONE (18:57)
[2020-03-13] MEDS: OXYBUTYNIN 5 MG TAB PO SCH (21:26)
[2020-03-13] MEDS: GABAPENTIN 300 MG CAP PO SCH (21:26)
[2020-03-13] MEDS: ACETAMINOPHEN 325 MG TAB PO PRN (21:26)
[2020-03-13] MEDS ORDERED: TOLTERODINE TARTRATE 2 MG PO SCH (22:00)
[2020-03-13] MEDS ORDERED: RANITIDINE HCL 150 MG PO SCH (22:00)
[2020-03-13] MEDS: POTASSIUM CHLORIDE 10 MEQ 10 MEQ/100 ML BAG IV SCH (23:43)
[2020-03-13] MEDS: LITHIUM CARBONATE 150 MG CAP PO SCH (23:53)
[2020-03-13] MEDS: traZODone 100 MG TAB PO SCH (23:53)
[2020-03-13] MEDS: FAMOTIDINE 10 MG TAB PO SCH (23:54)
[2020-03-14] MEDS ORDERED: POTASSIUM CHLORIDE 10 MEQ 10 MEQ/100 ML BAG IV ONE (00:43)
[2020-03-14] MEDS: POTASSIUM CHLORIDE 10 MEQ 10 MEQ/100 ML BAG IV SCH (00:46)
[2020-03-14] MEDS: BENZONATATE 100 MG CAP PO SCH ×4 (00:50→21:14)
[2020-03-14 02:58] LABS: Bilirubin,Urine NEG (Negative); Blood,Urine NEG (Negative); Color,Urine Yellow (Yellow); Urobilinogen,Urine < 2.0 mg/dL (<2.0)
[2020-03-14 08:58] LABS: Basophils % (Auto) 0.1 % (0.0-1.8); Hematocrit 35.9 % (30.3-42.9); Hemoglobin 11.9 gm/dl (10.1-14.3); Lymphocytes # (Auto) 0.7 K/mm3 (1.2-5.4); Lymphocytes % (Auto) 17.5 % (13.4-35.0); Mean Corpuscular HGB Conc 33 % (30-34); Mean Corpuscular Volume 84 fl (79-97); Monocytes # (Auto) 0.4 K/mm3 (0.0-0.8); Monocytes % (Auto) 9.5 % (0.0-7.3); Platelet Count 198 K/mm3 (140-440); Red Blood Count 4.25 M/mm3 (3.65-5.03); Red Cell Distribution Width 16.3 % (13.2-15.2)
[2020-03-14] MEDS: DULoxetine 30 MG CAP PO SCH (09:00)
[2020-03-14] MEDS: OXYBUTYNIN 5 MG TAB PO SCH ×3 (09:00→21:15)
[2020-03-14] MEDS: lamoTRIgine 100 MG TAB PO SCH (09:00)
[2020-03-14] MEDS: GABAPENTIN 300 MG CAP PO SCH ×3 (09:00→21:14)
[2020-03-14] MEDS: MONTELUKAST 10 MG TAB PO SCH (09:00)
[2020-03-14 09:10] LABS: Blood Urea Nitrogen 8 mg/dL (7-17); Calcium 8.7 mg/dL (8.4-10.2); Hemolysis Index 1
[2020-03-14 09:11] LABS: BUN/Creatinine Ratio 13
[2020-03-14] MEDS: FAMOTIDINE 10 MG TAB PO SCH ×2 (09:12→21:14)
[2020-03-14] MEDS: ACETAMINOPHEN 325 MG TAB PO PRN ×2 (09:12→17:02)
[2020-03-14] MEDS: ONDANSETRON 4 MG/2 ML INJ IV PRN (09:13)
[2020-03-14] MEDS ORDERED: NON-FORMULARY EACH (Duloxetine Hcl [Drizalma Sprinkle] 60 MG Cap.Dr.Spr) PO SCH (10:00)
[2020-03-14] MEDS ORDERED: PNEUMOCOCCAL 23 Valent 0.5 ML VIAL IM ONE (12:00)
--- NOTE | 2020-03-14 12:56 | Progress Note ---
Assessment and Plan - Patient Problems (1) Sepsis Current Visit: Yes Status: Acute Plan to address problem: Sepsis protocol: Chest x-ray, CBC, CMP, blood culture, urinalysis, IV fluid resuscitation therapy, IV antibiotic therapy, monitor urine output every shift, monitor fluid balance, strict I's/O, daily weight, maintain mean arterial pressure greater than or equal to 65, serial lactic acid level (2) Acute hypoxemic respiratory failure Current Visit: Yes Status: Acute Plan to address problem: Supplemental oxygen, nebulizer therapy, pulse oximetry, prone position while in bed, pulmonary toilet. (3) Pneumonia Current Visit: Yes Status: Acute Qualifiers: Laterality: bilateral Plan to address problem: Pneumonia protocol: Chest x-ray, CBC, CMP, nebulizer therapy, pulse oximetry, IV antibiotic therapy, blood culture, pulmonary toilet. (4) Suspected COVID-19 virus infection Current Visit: Yes Status: Acute Plan to address problem: Coronavirus protocol: Contact precaution, isolation precautions, IV antibiotic therapy, IV steroid therapy, prone positioning while in bed, coronavirus PCR pending, prophylactic anticoagulation (5) COPD (chronic obstructive pulmonary disease) Current Visit: Yes Status: Acute Qualifiers: Chronic bronchitis type: unspecified Plan to address problem: IV steroid therapy, supportive care, supplemental oxygen, IV antibiotic therapy. (6) GERD (gastroesophageal reflux disease) Current Visit: Yes Status: Acute Qualifiers: Esophagitis presence: without esophagitis Qualified Code(s): K21.9 - Gastro-esophageal reflux disease without esophagitis Plan to address problem: PPI therapy, supportive care (7) Hypertension Current Visit: Yes Status: Acute Qualifiers: Hypertension type: essential hypertension Qualified Code(s): I10 - Essential (primary) hypertension Plan to address problem: Monitor blood pressure every shift, continue medical management. (8) Hyperlipidemia Current Visit: Yes Status: Acute Qualifiers: Hyperlipidemia type: mixed hyperlipidemia Qualified Code(s): E78.2 - Mixed hyperlipidemia Plan to address problem: Lipid panel, statin therapy, balanced diet, low-cholesterol diet. (9) DVT prophylaxis Current Visit: Yes Status: Acute Plan to address problem: SCD to bilateral lower extremities while in bed, prophylactic anticoagulation (10) Advance care planning Current Visit: Yes Status: Acute Plan to address problem: Disease education conducted, patient is full code, prognosis discussed, care pl an discussed, patient knowledges understanding and agreement with care plan, +30 minutes. History Interval history: 64 YO Female HD #2 with acute hypoxemic respiratory failure, bilateral pneumonia, sepsis, Covid PCR pending, COPD, GERD, HTN, HLD, Anxiety, OA, Asthma Mild Intermittent. Patient resting comfortably in bed. Patient acknowledges improvement in shortness of breath. Patient denies pain. Hospitalist Physical - Constitutional Vitals: Temp Pulse Resp BP Pulse Ox 98.2 F 103 H 37 H 118/59 89 03/14/20 05:07 03/14/20 05:30 03/14/20 05:30 03/14/20 05:30 03/14/20 08:37 General appearance: Present: mild distress - EENT Eyes: Present: PERRL, EOM intact ENT: hearing intact - Neck Neck: Present: supple - Respiratory Respiratory effort: labored Respiratory: bilateral: diminished, rhonchi - Cardiovascular Rhythm: regular Heart Sounds: Present: S1 & S2 - Extremities Extremities: no ischemia Peripheral Pulses: within normal limits - Abdominal General gastrointestinal: soft, non-tender, non-distended - Integumentary Integumentary: Present: clear, dry - Psychiatric Psychiatric: appropriate mood/affect, cooperative - Neurologic Neurologic: CNII-XII intact HEART Score - HEART Score Troponin: Troponin T < 0.010 ng/mL (0.00-0.029) 03/13/20 16:24 Results - Labs CBC & Chem 7: 03/14/20 08:02 03/14/20 08:02 Labs: Laboratory Last Values WBC 3.9 K/mm3 (4.5-11.0) L 03/14/20 08:02 RBC 4.25 M/mm3 (3.65-5.03) 03/14/20 08:02 Hgb 11.9 gm/dl (10.1-14.3) 03/14/20 08:02 Hct 35.9 % (30.3-42.9) 03/14/20 08:02 MCV 84 fl (79-97) 03/14/20 08:02 MCH 28 pg (28-32) 03/14/20 08:02 MCHC 33 % (30-34) 03/14/20 08:02 RDW 16.3 % (13.2-15.2) H 03/14/20 08:02 Plt Count 198 K/mm3 (140-440) 03/14/20 08:02 Lymph % (Auto) 17.5 % (13.4-35.0) 03/14/20 08:02 [place] % (Auto) 9.5 % (0.0-7.3) H 03/14/20 08:02 Eos % (Auto) 0.0 % (0.0-4.3) 03/14/20 08:02 Baso % (Auto) 0.1 % (0.0-1.8) 03/14/20 08:02 Lymph # (Auto) 0.7 K/mm3 (1.2-5.4) L 03/14/20 08:02 [place] # (Auto) 0.4 K/mm3 (0.0-0.8) 03/14/20 08:02 Eos # (Auto) 0.0 K/mm3 (0.0-0.4) 03/14/20 08:02 Baso # (Auto) 0.0 K/mm3 (0.0-0.1) 03/14/20 08:02 Seg Neutrophils % 72.9 % (40.0-70.0) H 03/14/20 08:02 Seg Neutrophils # 2.8 K/mm3 (1.8-7.7) 03/14/20 08:02 PT 11.8 Sec. (12.2-14.9) L 03/13/20 16:24 INR 0.89 (0.87-1.13) 03/13/20 16:24 D-Dimer 234.66 ng/mlDDU (0-234) H 03/13/20 16:24 Sodium 142 mmol/L (137-145) D 03/14/20 08:02 Potassium 3.6 mmol/L (3.6-5.0) 03/14/20 08:02 Chloride 107.4 mmol/L (98-107) H 03/14/20 08:02 Carbon Dioxide 26 mmol/L (22-30) 03/14/20 08:02 Anion Gap 12 mmol/L 03/14/20 08:02 BUN 8 mg/dL (7-17) 03/14/20 08:02 Creatinine 0.6 mg/dL (0.6-1.2) 03/14/20 08:02 Estimated GFR > 60 ml/min 03/14/20 08:02 BUN/Creatinine Ratio 13 % 03/14/20 08:02 Glucose 142 mg/dL (65-100) H 03/14/20 08:02 Lactic Acid 1.70 mmol/L (0.7-2.0) 03/13/20 16:24 Calcium 8.7 mg/dL (8.4-10.2) 03/14/20 08:02 Magnesium 1.80 mg/dL (1.7-2.3) 03/13/20 16:24 Ferritin 116.8 ng/mL (10.0-200.0) 03/13/20 16:24 Total Bilirubin 0.50 mg/dL (0.1-1.2) 03/13/20 16:24 AST 20 units/L (5-40) 03/13/20 16:24 ALT 15 units/L (7-56) 03/13/20 16:24 Alkaline Phosphatase 89 units/L (35-129) 03/13/20 16:24 Lactate Dehydrogenase 267 units/L (91-180) H 03/13/20 16:24 Lactate Dehydrogenase 277 units/L (91-180) H 03/13/20 16:24 Total Creatine Kinase 42 units/L (30-135) 03/13/20 16:24 Troponin T < 0.010 ng/mL (0.00-0.029) 03/13/20 16:24 C-Reactive Protein 8.00 mg/dL (0.00-1.30) H 03/13/20 16:24 C-Reactive Protein 8.10 mg/dL (0.00-1.30) H 03/13/20 16:24 Total Protein 7.5 g/dL (6.3-8.2) 03/13/20 16:24 Albumin 3.7 g/dL (3.9-5) L 03/13/20 16:24 Albumin/Globulin Ratio 1.0 % 03/13/20 16:24 Procalcitonin 0.49 ng/mL (<0.15) 03/13/20 16:24 Urine Color Yellow (Yellow) 03/14/20 02:00 Urine Turbidity Clear (Clear) 03/14/20 02:00 Urine pH 7.0 (5.0-7.0) 03/14/20 02:00 Ur Specific [place] 1.014 (1.003-1.030) 03/14/20 02:00 Urine Protein 30 mg/dl mg/dL (Negative) 03/14/20 02:00 Urine Glucose (UA) Neg mg/dL (Negative) 03/14/20 02:00 Urine Ketones Tr mg/dL (Negative) 03/14/20 02:00 Urine Blood Neg (Negative) 03/14/20 02:00 Urine Nitrite Neg (Negative) 03/14/20 02:00 Urine Bilirubin Neg (Negative) 03/14/20 02:00 Urine Urobilinogen < 2.0 mg/dL (<2.0) 03/14/20 02:00 Ur Leukocyte Esterase Neg (Negative) 03/14/20 02:00 Urine WBC (Auto) 1.0 /HPF (0.0-6.0) 03/14/20 02:00 Urine RBC (Auto) 1.0 /HPF (0.0-6.0) 03/14/20 02:00 U Epithel Cells (Auto) 1.0 /HPF (0-13.0) 03/14/20 02:00 Microbiology: Microbiology 03/13/20 16:24 Peripheral/Venous Blood Culture - Preliminary Culture in Progress 03/13/20 16:24 Peripheral/Venous Blood Culture - Preliminary Culture in Progress Sorensen/IV: Voiding Method Toilet IV Catheter Type [Left INT / Saline Lock Antecubital] Active Medications - Current Medications Current Medications: Generic Name Dose Route Start Last Admin Trade Name Freq PRN Reason Stop Dose Admin Acetaminophen 650 mg 03/13/20 17:21 03/14/20 09:12 Acetaminophen 325 Mg Tab PO 650 mg Q4H PRN Administration Pain MILD(1-3)/Fever >100.5/CARIAS Albuterol 2.5 mg 03/13/20 17:21 Albuterol 2.5 Mg/3 Ml Nebu IH Q4HRT PRN Shortness Of Breath Benzonatate 100 mg 03/13/20 22:00 03/14/20 05:44 Benzonatate 100 Mg Cap PO 100 mg Q8HR SANDY Administration Duloxetine HCl 60 mg 03/14/20 10:00 03/14/20 09:00 Duloxetine 30 Mg Cap PO 60 mg QDAY SANDY Administration Ergocalciferol 50,000 unit 03/20/20 10:00 Ergocalciferol (Vit D2) 50,000 Unit Cap PO [place] SANDY Famotidine 10 mg 03/13/20 22:00 03/14/20 09:12 Famotidine 10 Mg Tab PO 10 mg BID SANDY Administration Gabapentin 300 mg 03/13/20 20:00 03/14/20 09:00 Gabapentin 300 Mg Cap PO 300 mg TID SANDY Administration Guaifenesin 10 ml 03/13/20 17:24 Guaifenesin Dm 200/20 Mg Oral Liqd 10 Ml PO Q4H PRN Cough Hydroxyzine Pamoate 50 mg 03/13/20 22:00 03/14/20 09:00 Hydroxyzine Pamoate 50 Mg Cap PO 50 mg QID SANDY Administration Lamotrigine 100 mg 03/14/20 10:00 03/14/20 09:00 Lamotrigine 100 Mg Tab PO 100 mg QDAY SANDY Administration [place] Carbonate 150 mg 03/13/20 22:00 03/13/20 23:53 [place] Carbonate 150 Mg Cap PO 150 mg BID SANDY Administration Montelukast Sodium 10 mg 03/14/20 10:00 03/14/20 09:00 Montelukast 10 Mg Tab PO 10 mg DAILY SANDY Administration Ondansetron HCl 4 mg 03/13/20 17:21 03/14/20 09:13 Ondansetron 4 Mg/2 Ml Inj IV 4 mg Q8H PRN Administration Nausea And Vomiting Oxybutynin Chloride 5 mg 03/13/20 20:00 03/14/20 09:00 Oxybutynin 5 Mg Tab PO 5 mg TID SANDY Administration Sodium Chloride 10 ml 03/13/20 22:00 03/13/20 23:54 Sodium Chloride 0.9% 10 Ml Flush Syringe IV 10 ml BID SANDY Administration Sodium Chloride 10 ml 03/13/20 17:21 Sodium Chloride 0.9% 10 Ml Flush Syringe IV PRN PRN LINE FLUSH Trazodone HCl 100 mg 03/13/20 22:00 03/13/20 23:53 Trazodone 100 Mg Tab PO 100 mg QHS SANDY Administration
--- NOTE | 2020-03-14 15:25 | Consultation ---
History of Present Illness - Reason for Consult Consult date: 03/14/20 COVID Requesting physician: KENDALL KUMAR - History of Present Illness 64 years old female with history of COPD on 3 L home O2, GERD, hypertension, hyperlipidemia, anxiety, asthma, admitted on 03/13/2020 secondary to 5-day history of generalized malaise, weakness, fever, dry cough, shortness of breath and dyspnea on exertion. Patient also reports some nausea and loose stools. Of note, patient was admitted to the hospital in December 2019 due to COPD exacerbation. SARS-CoV-2 PCR was negative. On arrival, temperature 97.8, HR 121, RR 25, O2 86%, BP 129/71. D-dimer 234. Ferritin was 16. CRP 8. Procalcitonin 0.4. Urinalysis negative. SARS-CoV-2 PCR positive. Chest x-ray with bilateral patchy infiltrate left greater than the right. Patient currently is on 3 L nasal cannula. Review of Systems: reviewed ED and H&P notes. Deferred to prevent COVID-19 transmission. Past History Past Medical History: arthritis, COPD, GERD, hypertension, hyperlipidemia, other (See HPI) Past Surgical History: total knee replacement Social history: single. denies: smoking, alcohol abuse Family history: hypertension Medications and Allergies Allergies Allergy/AdvReac Type Severity Reaction Status Date / Time No Known Allergies Allergy Verified 12/26/18 00:02 Home Medications Medication Instructions Recorded Confirmed Last Taken Type raNITIdine HCl [Zantac] 150 mg PO BID 12/24/18 03/14/20 12/25/18 08:00 History Ergocalciferol (Vitamin D2) 50,000 unit PO QWEEK 05/27/19 03/14/20 03/06/20 History [Drisdol] Gabapentin 300 mg PO TID 05/27/19 03/14/20 Unknown History Montelukast Sodium 10 mg PO DAILY 05/27/19 03/14/20 Unknown History hydrOXYzine PAMOATE [Vistaril] 50 mg PO QID 05/27/19 03/14/20 Unknown History Dicyclomine [Bentyl] 20 mg PO Q6H PRN #30 tablet 09/13/19 03/14/20 Unknown Rx Diphenoxylate/Atropine [Lomotil] 1 - 2 tab PO Q4H PRN #15 tablet 09/13/19 03/14/20 Unknown Rx Ondansetron [Zofran ODT TAB] 4 mg PO Q6HR PRN #20 tab.rapdis 09/13/19 03/14/20 Unknown Rx Acetaminophen [Acetaminophen TAB] 650 mg PO Q4H PRN tablet 01/09/20 03/14/20 Unknown Rx guaiFENesin DM [Guaifenesin Dm 10 ml PO Q4H PRN #1 oral.liqd 01/09/20 03/14/20 Unknown Rx Syrup] Albuterol Mdi (or & Nicu Only) 1 puff IH Q4-6H PRN #1 inha 01/29/20 03/14/20 Unknown Rx [ProAir HFA Inhaler] Benzonatate [Tessalon Perles] 100 mg PO Q8HR #20 capsule 01/29/20 03/14/20 Unknown Rx predniSONE [Deltasone] 20 mg PO QDAY #5 tab 01/29/20 03/14/20 Unknown Rx Amitriptyline [Elavil] 10 mg PO QHS 03/14/20 03/14/20 Unknown History DULoxetine [Cymbalta] 50 mg PO QDAY 03/14/20 03/14/20 Unknown History Active Meds: Active Medications Acetaminophen (Acetaminophen 325 Mg Tab) 650 mg PO Q4H PRN PRN Reason: Pain MILD(1-3)/Fever >100.5/CARIAS Last Admin: 03/14/20 09:12 Dose: 650 mg Documented by: Albuterol (Albuterol 2.5 Mg/3 Ml Nebu) 2.5 mg IH Q4HRT PRN PRN Reason: Shortness Of Breath Benzonatate (Benzonatate 100 Mg Cap) 100 mg PO Q8HR [facility] Last Admin: 03/14/20 15:17 Dose: 100 mg Documented by: Duloxetine HCl (Duloxetine 30 Mg Cap) 60 mg PO QDAY [facility] Last Admin: 03/14/20 09:00 Dose: 60 mg Documented by: Ergocalciferol (Ergocalciferol (Vit D2) 50,000 Unit Cap) 50,000 unit PO [facility] Famotidine (Famotidine 10 Mg Tab) 10 mg PO BID [facility] Last Admin: 03/14/20 09:12 Dose: 10 mg Documented by: Gabapentin (Gabapentin 300 Mg Cap) 300 mg PO TID [facility] Last Admin: 03/14/20 15:17 Dose: 300 mg Documented by: Guaifenesin (Guaifenesin Dm 200/20 Mg Oral Liqd 10 Ml) 10 ml PO Q4H PRN PRN Reason: Cough Hydroxyzine Pamoate (Hydroxyzine Pamoate 50 Mg Cap) 50 mg PO QID [facility] Last Admin: 03/14/20 15:17 Dose: 50 mg Documented by: Lamotrigine (Lamotrigine 100 Mg Tab) 100 mg PO QDAY [facility] Last Admin: 03/14/20 09:00 Dose: 100 mg Documented by: [place] Carbonate ([place] Carbonate 150 Mg Cap) 150 mg PO BID [facility] Last Admin: 03/13/20 23:53 Dose: 150 mg Documented by: Montelukast Sodium (Montelukast 10 Mg Tab) 10 mg PO DAILY [facility] Last Admin: 03/14/20 09:00 Dose: 10 mg Documented by: Ondansetron HCl (Ondansetron 4 Mg/2 Ml Inj) 4 mg IV Q8H PRN PRN Reason: Nausea And Vomiting Last Admin: 03/14/20 09:13 Dose: 4 mg Documented by: Oxybutynin Chloride (Oxybutynin 5 Mg Tab) 5 mg PO TID [facility] Last Admin: 03/14/20 15:17 Dose: 5 mg Documented by: Sodium Chloride (Sodium Chloride 0.9% 10 Ml Flush Syringe) 10 ml IV BID [facility] Last Admin: 03/13/20 23:54 Dose: 10 ml Documented by: Sodium Chloride (Sodium Chloride 0.9% 10 Ml Flush Syringe) 10 ml IV PRN PRN PRN Reason: LINE FLUSH Trazodone HCl (Trazodone 100 Mg Tab) 100 mg PO QHS [facility] Last Admin: 03/13/20 23:53 Dose: 100 mg Documented by: Physical Examination - Physical Exam Narrative exam: Physical Exam: reviewed ED and hospitalist notes. Deferred to prevent COVID-19 transmission. - Constitutional Vitals: Vital Signs Temp Pulse Resp BP Pulse Ox 98.2 F 103 H 37 H 118/59 89 03/14/20 05:07 03/14/20 05:30 03/14/20 05:30 03/14/20 05:30 03/14/20 08:37 Temperature -Last 24 Hours Temperature 98.2 F Temperature 98.8 F Temperature 98.2 F Results - Labs CBC & Chem 7: 03/14/20 08:02 03/14/20 08:02 Labs: Abnormal lab results 03/13/20 03/13/20 03/13/20 Range/Units 16:24 16:24 16:24 WBC (4.5-11.0) K/mm3 RDW 16.8 H (13.2-15.2) % Lymph % (Auto) 8.5 L (13.4-35.0) % [place] % (Auto) (0.0-7.3) % Lymph # (Auto) 0.6 L (1.2-5.4) K/mm3 Seg Neutrophils % 84.9 H (40.0-70.0) % PT 11.8 L (12.2-14.9) Sec. D-Dimer 234.66 H (0-234) ng/mlDDU Sodium 135 L (137-145) mmol/L Potassium 3.1 L (3.6-5.0) mmol/L Chloride (98-107) mmol/L Glucose 174 H (65-100) mg/dL Lactate Dehydrogenase 277 H (91-180) units/L C-Reactive Protein 8.00 H (0.00-1.30) mg/dL Albumin 3.7 L (3.9-5) g/dL Coronavirus (PCR) (Negative) 03/13/20 03/14/20 03/14/20 Range/Units 16:24 08:02 08:02 WBC 3.9 L (4.5-11.0) K/mm3 RDW 16.3 H (13.2-15.2) % Lymph % (Auto) (13.4-35.0) % [place] % (Auto) 9.5 H (0.0-7.3) % Lymph # (Auto) 0.7 L (1.2-5.4) K/mm3 Seg Neutrophils % 72.9 H (40.0-70.0) % PT (12.2-14.9) Sec. D-Dimer (0-234) ng/mlDDU Sodium (137-145) mmol/L Potassium (3.6-5.0) mmol/L Chloride 107.4 H (98-107) mmol/L Glucose 174 H 142 H (65-100) mg/dL Lactate Dehydrogenase 267 H (91-180) units/L C-Reactive Protein 8.10 H (0.00-1.30) mg/dL Albumin (3.9-5) g/dL Coronavirus (PCR) (Negative) 03/14/20 Range/Units Unknown WBC (4.5-11.0) K/mm3 RDW (13.2-15.2) % Lymph % (Auto) (13.4-35.0) % [place] % (Auto) (0.0-7.3) % Lymph # (Auto) (1.2-5.4) K/mm3 Seg Neutrophils % (40.0-70.0) % PT (12.2-14.9) Sec. D-Dimer (0-234) ng/mlDDU Sodium (137-145) mmol/L Potassium (3.6-5.0) mmol/L Chloride (98-107) mmol/L Glucose (65-100) mg/dL Lactate Dehydrogenase (91-180) units/L C-Reactive Protein (0.00-1.30) mg/dL Albumin (3.9-5) g/dL Coronavirus (PCR) Positive A (Negative) Assessment and Plan Cultures: Blood culture pending SARS CoV2 PCR positive Assessment: 64 years old female with history of COPD on 3 L home O2, GERD, hypertension, hyperlipidemia, anxiety, asthma, admitted on 03/13/2020 secondary to 5-day history of generalized malaise, weakness, fever, dry cough, shortness of breath and dyspnea on exertion: #Severe COVID pneumonia/Bacterial pneumonia: Chest x-ray showed bilateral patchy infiltrate left greater than right. Ferritin normal. D-dimer mildly elevated. Procalcitonin elevated likely a bacterial component. #Acute on chronic hypoxemic respiratory failure: Patient is on 3 L at home. Currently on 3 L. #COPD with exacerbation Recommendations: -Start Dexamethasone 6 mg IV/PO daily for 10 days -Start Remdesivir total 5 days -Monitor inflammatory markers - ferritin, Ddimer, CRP, LDH -Start cefepime 2 g IV every 12 hours in light of elevated procalcitonin -Check MRSA PCR -Monitor liver function test on Remdesivir -Continue anticoagulation per System Protocol -Prone positioning as possible -Obtain SARS CoV-2 IgG to determine if patient is a candidate for COVID convalescent plasma All laboratory, cultures and imaging were reviewed. Will follow Shayy Quintana MD Infectious Diseases [employer] [facility] M [phone] O [phone]
[2020-03-14] MEDS: LITHIUM CARBONATE 150 MG CAP PO SCH ×2 (16:42→21:15)
[2020-03-14] MEDS: dexAMETHasone 4 MG/ML VIAL IV SCH (16:47)
[2020-03-14] MEDS: SODIUM CHLORIDE 0.9% 50 ML IVPB IV SCH (16:48)
[2020-03-14] MEDS ORDERED: REMDESIVIR 200 MG in SODIUM CHLORIDE 0.9% 250ML 250 ML IV ONE (17:00)
[2020-03-14] MEDS ORDERED: REMDESIVIR 100 MG VIAL IV ONE (17:00)
[2020-03-14] MEDS: CEFEPIME/NS 2 GM/100 ML 2 GM/100 ML BAG IV SCH (17:03)
[2020-03-14] MEDS ORDERED: SODIUM CHLORIDE 0.9% 50 ML IVPB IV SCH (17:30)
[2020-03-14 18:20] LABS: C-Reactive Protein 2.6 mg/dL (0.00-1.30)
[2020-03-14] MEDS: traZODone 100 MG TAB PO SCH (21:14)
[2020-03-15] MEDS: ONDANSETRON 4 MG/2 ML INJ IV PRN ×4 (00:44→20:52)
[2020-03-15] MEDS: CEFEPIME/NS 2 GM/100 ML 2 GM/100 ML BAG IV SCH ×2 (05:41→17:22)
[2020-03-15] MEDS: BENZONATATE 100 MG CAP PO SCH ×3 (05:41→21:07)
--- NOTE | 2020-03-15 07:29 | Progress Note ---
Assessment and Plan Cultures: Blood culture no growth today SARS CoV2 PCR positive SARS Covid 2 IgG positive Assessment: 64 years old female with history of COPD on 3 L home O2, GERD, hypertension, hyperlipidemia, anxiety, asthma, admitted on 03/13/2020 secondary to 5-day history of generalized malaise, weakness, fever, dry cough, shortness of breath and dyspnea on exertion: #Severe COVID pneumonia/Bacterial pneumonia: Chest x-ray showed bilateral patchy infiltrate left greater than right. Ferritin normal. D-dimer mildly elevated. Procalcitonin elevated likely a bacterial component. #Acute on chronic hypoxemic respiratory failure: Patient is on 3 L at home. Currently on 3 L. #COPD with exacerbation #Diarrhea: Likely secondary to COVID-19. Recommendations: -Continue dexamethasone 6 mg IV/PO daily for 10 days- D2 of 10 -Continue remdesivir total 5 days- D2 of 5 -Monitor inflammatory markers - ferritin, Ddimer, CRP, LDH -Continue cefepime 2 g IV every 12 hours in light of elevated procalcitonin D2 of 5 -Check MRSA PCR -pending -Monitor liver function test on Remdesivir -Continue anticoagulation per System Protocol -Prone positioning as possible -SARS CoV-2 IgG is positive, patient is not a candidate for COVID convalescent plasma All laboratory, cultures and imaging were reviewed. Will follow Shayy Quintana MD Infectious Diseases [facility] M [phone] O [phone] Subjective Date of service: 03/15/20 Principal diagnosis: COVID/COPD Interval history: Remains on 3 L nasal cannula, + episode of diarrhea overnight. No fever Objective - Exam Narrative Exam: Physical Exam: reviewed ED and hospitalist notes. Deferred to prevent COVID-19 transmission. - Constitutional Vitals: Vital Signs Temp Pulse Resp BP Pulse Ox 98.2 F 97 H 18 136/79 87 03/15/20 04:43 03/15/20 04:43 03/15/20 04:43 03/15/20 04:43 03/15/20 04:43 Temperature -Last 24 Hours Temperature 98.2 F Temperature 98.8 F Temperature 97.8 F - Labs CBC & Chem 7: 03/14/20 08:02 03/14/20 08:02 Labs: Abnormal lab results 03/14/20 03/14/20 03/14/20 Range/Units 08:02 08:02 16:58 WBC 3.9 L (4.5-11.0) K/mm3 RDW 16.3 H (13.2-15.2) % [place] % (Auto) 9.5 H (0.0-7.3) % Lymph # (Auto) 0.7 L (1.2-5.4) K/mm3 Seg Neutrophils % 72.9 H (40.0-70.0) % Chloride 107.4 H (98-107) mmol/L Glucose 142 H (65-100) mg/dL Lactate Dehydrogenase (91-180) units/L C-Reactive Protein (0.00-1.30) mg/dL Coronavirus (PCR) (Negative) SARS-CoV-2 IgG Ab Reactive A (NonReactive) 03/14/20 03/14/20 Range/Units 16:58 Unknown WBC (4.5-11.0) K/mm3 RDW (13.2-15.2) % [place] % (Auto) (0.0-7.3) % Lymph # (Auto) (1.2-5.4) K/mm3 Seg Neutrophils % (40.0-70.0) % Chloride (98-107) mmol/L Glucose (65-100) mg/dL Lactate Dehydrogenase 277 H (91-180) units/L C-Reactive Protein 2.60 H (0.00-1.30) mg/dL Coronavirus (PCR) Positive A (Negative) SARS-CoV-2 IgG Ab (NonReactive)
[2020-03-15] MEDS: GABAPENTIN 300 MG CAP PO SCH ×3 (08:00→20:37)
[2020-03-15] MEDS: OXYBUTYNIN 5 MG TAB PO SCH ×3 (08:00→20:39)
[2020-03-15] MEDS: dexAMETHasone 4 MG/ML VIAL IV SCH (09:14)
[2020-03-15] MEDS: DULoxetine 30 MG CAP PO SCH (09:15)
[2020-03-15] MEDS: LITHIUM CARBONATE 150 MG CAP PO SCH ×2 (09:15→21:06)
[2020-03-15] MEDS: FAMOTIDINE 10 MG TAB PO SCH ×2 (09:15→21:06)
[2020-03-15] MEDS: lamoTRIgine 100 MG TAB PO SCH (09:15)
[2020-03-15] MEDS: MONTELUKAST 10 MG TAB PO SCH (09:16)
--- NOTE | 2020-03-15 16:57 | Progress Note ---
Assessment and Plan Assessment and Plan - Patient Problems (1) Sepsis Current Visit: Yes Status: Acute Plan to address problem: Continue IV antibiotics (2) Acute hypoxemic respiratory failure Current Visit: Yes Status: Acute Plan to address problem: Supplemental oxygen, nebulizer therapy, pulse oximetry, prone position while in bed, pulmonary toilet. On high flow oxygen (3) Pneumonia Current Visit: Yes Status: Acute Qualifiers: Laterality: bilateral Plan to address problem: Pneumonia protocol: Chest x-ray, CBC, CMP, nebulizer therapy, pulse oximetry, IV antibiotic therapy, blood culture, pulmonary toilet. (4) COVID-19 virus infection Current Visit: Yes Status: Acute Plan to address problem: Coronavirus positive Continue dexamethasone 6 mg IV/p.o. daily for 10 days Continue remdesivir total 5 days Continue cefepime every 12 hours Check MRSA PCR pending Monitor liver function test on remdesivir Sinus Covid 2 IgG is positive patient is not a candidate for Covid convalescent plasma Patient is not a candidate for Covid positive convalescent plasma (5) COPD (chronic obstructive pulmonary disease) Current Visit: Yes Status: Acute Qualifiers: Chronic bronchitis type: unspecified Plan to address problem: IV steroid therapy, supportive care, supplemental oxygen, IV antibiotic therapy. (6) GERD (gastroesophageal reflux disease) Current Visit: Yes Status: Acute Qualifiers: Esophagitis presence: without esophagitis Qualified Code(s): K21.9 - Gastr o-esophageal reflux disease without esophagitis Plan to address problem: PPI therapy, supportive care (7) Hypertension Current Visit: Yes Status: Acute Qualifiers: Hypertension type: essential hypertension Qualified Code(s): I10 - Essential (primary) hypertension Plan to address problem: Monitor blood pressure every shift, continue medical management. (8) Hyperlipidemia Current Visit: Yes Status: Acute Qualifiers: Hyperlipidemia type: mixed hyperlipidemia Qualified Code(s): E78.2 - Mixed hyperlipidemia Plan to address problem: Lipid panel, statin therapy, balanced diet, low-cholesterol diet. (9) DVT prophylaxis Current Visit: Yes Status: Acute Plan to address problem: SCD to bilateral lower extremities while in bed, prophylactic anticoagulation (10) Advance care planning Current Visit: Yes Status: Acute Plan to address problem: Disease education conducted, patient is full code, prognosis discussed, care plan discussed, patient knowledges understanding and agreement with care plan, +30 minutes. Subjective Date of service: 03/15/20 Principal diagnosis: COVID/COPD Interval history: 64 YO Female with COPD, GERD, HTN, HLD, Anxiety, OA, Asthma Mild Intermittent, presents to ED for evaluation. Patient states that she has "not been feeling well" over the past 5 days with persistently worsening symptoms over the same timeframe. Patient states that she has experienced subjective fever, fatigue, muscle aches, generalized weakness, malaise, dry cough, decreased exercise tolerance, loss of sense of smell, loss of sense of taste, shortness of breath, nausea, multiple loose stools, and diminished oral intake. PT transported to [facility] via private vehicle for further care and evaluation of the aforementioned symptoms. The patient was seen and evaluated in the emergency department. All lab and imaging studies reviewed. The patient was found to be tachypneic with respiratory rate in the 30s as well as tachycardic with a pulse rate of 121, and a temperature of 101.9 F. Patient also found to have a pulse oximetry of 86% with exertion while on room air which is consistent with acute hypoxemic respiratory failure. The patient was also found to have a chest x-ray with bilateral pneumonia as well as as well as sepsis. Patient admitted to medical floor and initiated sepsis protocol. Patient also initiated on coronavirus protocol. Patient denies chills, chest pain, palpitations, productive cough, skin rash, recent ill contacts, or known exposure to COVID-19. Prior admission on 01/07/2020 reviewed. All medication listed at time of admission has been reconciled. Advanced care planning conducted in ED. Interval history: 64 YO Female HD #2 with acute hypoxemic respiratory failure, bilateral pneumonia, sepsis, Covid PCR pending, COPD, GERD, HTN, HLD, Anxiety, OA, Asthma Mild Intermittent. Patient resting comfortably in bed. Patient acknowledges improvement in shortness of breath. Patient denies pain. Day 3 03/15/2020\\ Patient on high flow oxygen Continue IV Decadron and remdesivir Objective - Constitutional Vitals: Vital Signs - 12hr 03/15/20 03/15/20 03/15/20 08:05 12:00 13:21 Temperature 98.5 F Pulse Rate 105 H Respiratory 22 Rate Blood Pressure 145/84 O2 Sat by Pulse 85 94 96 Oximetry General appearance: Present: mild distress, well-nourished - EENT Eyes: PERRL, EOM intact ENT: hearing intact, clear oral mucosa Ears: bilateral: normal - Neck Neck: supple, normal ROM - Respiratory Respiratory effort: normal Respiratory: bilateral: CTA - Breasts Breasts: normal - Cardiovascular Rhythm: regular Heart Sounds: Present: S1 & S2. Absent: gallop, rub Extremities: pulses intact, No edema, normal color, Full ROM - Gastrointestinal General gastrointestinal: Present: soft, non-tender, non-distended, normal bowel sounds - Genitourinary Female genitourinary: normal - Integumentary Integumentary: clear, warm, dry - Musculoskeletal Musculoskeletal: 1, strength equal bilaterally - Neurologic Neurologic: moves all extremities - Psychiatric Psychiatric: memory intact, appropriate mood/affect, intact judgment & insight - Labs CBC & Chem 7: 03/14/20 08:02 03/14/20 08:02 Labs: Abnormal lab results 03/14/20 03/14/20 Range/Units 16:58 16:58 Lactate Dehydrogenase 277 H (91-180) units/L C-Reactive Protein 2.60 H (0.00-1.30) mg/dL SARS-CoV-2 IgG Ab Reactive A (NonReactive) HEART Score - HEART Score Troponin: Troponin T < 0.010 ng/mL (0.00-0.029) 03/13/20 16:24
[2020-03-15] MEDS: SODIUM CHLORIDE 0.9% 50 ML IVPB IV SCH (20:38)
[2020-03-15] MEDS: REMDESIVIR 100 MG in SODIUM CHLORIDE 0.9% 250ML 250 ML IV SCH (20:52)
[2020-03-15] MEDS: traZODone 100 MG TAB PO SCH (21:06)
[2020-03-16] MEDS: CEFEPIME/NS 2 GM/100 ML 2 GM/100 ML BAG IV SCH ×2 (05:02→17:27)
[2020-03-16] MEDS: ONDANSETRON 4 MG/2 ML INJ IV PRN ×2 (05:02→14:03)
[2020-03-16] MEDS: BENZONATATE 100 MG CAP PO SCH ×3 (05:02→21:57)
[2020-03-16] MEDS: ACETAMINOPHEN 325 MG TAB PO PRN ×2 (05:48→20:01)
[2020-03-16 06:48] LABS: Basophils % (Auto) 0.1 % (0.0-1.8); Lymphocytes # (Auto) 1.4 K/mm3 (1.2-5.4); Lymphocytes % (Auto) 20.4 % (13.4-35.0); Mean Corpuscular HGB Conc 33 % (30-34); Mean Corpuscular Volume 83 fl (79-97); Monocytes # (Auto) 0.7 K/mm3 (0.0-0.8); Platelet Count 286 K/mm3 (140-440); Red Blood Count 4.32 M/mm3 (3.65-5.03); Red Cell Distribution Width 16.4 % (13.2-15.2)
[2020-03-16 07:07] LABS: Alanine Aminotransferase 9 units/L (7-56); Albumin 3.4 g/dL (3.9-5); Blood Urea Nitrogen 12 mg/dL (7-17); Hemolysis Index 4
[2020-03-16 07:20] LABS: BUN/Creatinine Ratio 17; Bilirubin,Direct < 0.2 mg/dL (0-0.2)
--- NOTE | 2020-03-16 09:02 | Progress Note ---
Assessment and Plan Cultures: Blood culture no growth today SARS CoV2 PCR positive SARS Covid 2 IgG positive Assessment: 64 years old female with history of COPD on 3 L home O2, GERD, hypertension, hyperlipidemia, anxiety, asthma, admitted on 03/13/2020 secondary to 5-day history of generalized malaise, weakness, fever, dry cough, shortness of breath and dyspnea on exertion: #Severe COVID pneumonia/Bacterial pneumonia: Chest x-ray showed bilateral patchy infiltrate left greater than right. Ferritin normal. D-dimer mildly elevated. Repeat markers normal ferritin normal D-dimer. Procalcitonin elevated likely a bacterial component. #Acute on chronic hypoxemic respiratory failure: Patient is on 3 L at home. Worsening now on 10 L high flow nasal cannula. #COPD with exacerbation #Diarrhea: Likely secondary to COVID-19. Recommendations: -Check transthoracic echo, unclear hypoxia with inflammatory markers for Covid -Check BMP -Repeat chest x-ray -Continue dexamethasone 6 mg IV/PO daily for 10 days- D3 of 10 -Continue remdesivir total 5 days- D3 of 5 -Monitor inflammatory markers - ferritin, Ddimer, CRP, LDH ordered today -Continue cefepime 2 g IV every 12 hours in light of elevated procalcitonin D3 of 5 -Check MRSA PCR -pending -Monitor liver function test on Remdesivir -Continue anticoagulation per System Protocol -Prone positioning as possible -SARS CoV-2 IgG is positive, patient is not a candidate for COVID convalescent plasma All laboratory, cultures and imaging were reviewed. Will follow Shayy Quintana MD Infectious Diseases Public Health Doctor [facility] M [phone] O [phone] Subjective Principal diagnosis: COVID/COPD Objective - Constitutional Vitals: Vital Signs Temp Pulse Resp BP Pulse Ox 97.9 F 95 H 20 129/58 90 03/16/20 03:53 03/16/20 03:53 03/16/20 03:53 03/16/20 03:53 03/16/20 03:53 Temperature -Last 24 Hours Temperature 97.9 F Temperature 97.7 F Temperature 98.7 F Temperature 98.5 F - Labs CBC & Chem 7: 03/16/20 05:18 03/16/20 05:18 Labs: Abnormal lab results 03/16/20 03/16/20 Range/Units 05:18 05:18 RDW 16.4 H (13.2-15.2) % [place] % (Auto) 10.0 H (0.0-7.3) % Potassium 3.1 L (3.6-5.0) mmol/L Albumin 3.4 L (3.9-5) g/dL
[2020-03-16] MEDS: DULoxetine 30 MG CAP PO SCH (09:16)
[2020-03-16] MEDS: GABAPENTIN 300 MG CAP PO SCH ×3 (09:17→22:01)
[2020-03-16] MEDS: DEXAMETHASONE 4 MG TAB PO SCH (09:17)
[2020-03-16] MEDS: lamoTRIgine 100 MG TAB PO SCH (09:17)
[2020-03-16] MEDS: OXYBUTYNIN 5 MG TAB PO SCH ×3 (09:17→22:02)
[2020-03-16] MEDS: LITHIUM CARBONATE 150 MG CAP PO SCH ×2 (09:17→21:57)
[2020-03-16] MEDS: MONTELUKAST 10 MG TAB PO SCH (09:18)
[2020-03-16] MEDS: FAMOTIDINE 10 MG TAB PO SCH ×2 (09:19→21:57)
--- NOTE | 2020-03-16 10:42 | XRay Report ---
CHEST 1 VIEW INDICATION / CLINICAL INFORMATION: Rule out worsening pneumonia/pneumothorax. COMPARISON: 03/13/2020 FINDINGS: SUPPORT DEVICES: None. HEART / MEDIASTINUM: No significant abnormality. LUNGS / PLEURA: Bilateral airspace disease No pneumothorax. ADDITIONAL FINDINGS: No significant additional findings. IMPRESSION: Bilateral airspace disease has worsened since 03/13/2020. Signer Name: Mic Johnson MD FACR Signed: 03/16/2020 10:38 AM Workstation Name: [id number]
[2020-03-16 11:47] LABS: C-Reactive Protein 2.1 mg/dL (0.00-1.30)
[2020-03-16] MEDS: SODIUM CHLORIDE 0.9% 50 ML IVPB IV SCH (21:56)
[2020-03-16] MEDS: REMDESIVIR 100 MG in SODIUM CHLORIDE 0.9% 250ML 250 ML IV SCH (21:56)
[2020-03-16] MEDS: traZODone 100 MG TAB PO SCH (21:57)
--- NOTE | 2020-03-17 00:45 | Progress Note ---
Assessment and Plan Assessment and Plan - Patient Problems (1) Sepsis Current Visit: Yes Status: Acute Plan to address problem: Continue IV antibiotics (2) Acute hypoxemic respiratory failure Current Visit: Yes Status: Acute Plan to address problem: Supplemental oxygen, nebulizer therapy, pulse oximetry, prone position while in bed, pulmonary toilet. On high flow oxygen (3) Pneumonia Current Visit: Yes Status: Acute Qualifiers: Laterality: bilateral Plan to address problem: Pneumonia protocol: Chest x-ray, CBC, CMP, nebulizer therapy, pulse oximetry, IV antibiotic therapy, blood culture, pulmonary toilet. (4) COVID-19 virus infection Current Visit: Yes Status: Acute Plan to address problem: Coronavirus positive Continue dexamethasone 6 mg IV/p.o. daily for 10 days Continue remdesivir total 5 days Continue cefepime every 12 hours Check MRSA PCR pending Monitor liver function test on remdesivir Sinus Covid 2 IgG is positive patient is not a candidate for Covid convalescent plasma Patient is not a candidate for Covid positive convalescent plasma (5) COPD (chronic obstructive pulmonary disease) Current Visit: Yes Status: Acute Qualifiers: Chronic bronchitis type: unspecified Plan to address problem: IV steroid therapy, supportive care, supplemental oxygen, IV antibiotic therapy. (6) GERD (gastroesophageal reflux disease) Current Visit: Yes Status: Acute Qualifiers: Esophagitis presence: without esophagitis Qualified Code(s): K21.9 - Gastr o-esophageal reflux disease without esophagitis Plan to address problem: PPI therapy, supportive care (7) Hypertension Current Visit: Yes Status: Acute Qualifiers: Hypertension type: essential hypertension Qualified Code(s): I10 - Essential (primary) hypertension Plan to address problem: Monitor blood pressure every shift, continue medical management. (8) Hyperlipidemia Current Visit: Yes Status: Acute Qualifiers: Hyperlipidemia type: mixed hyperlipidemia Qualified Code(s): E78.2 - Mixed hyperlipidemia Plan to address problem: Lipid panel, statin therapy, balanced diet, low-cholesterol diet. (9) DVT prophylaxis Current Visit: Yes Status: Acute Plan to address problem: SCD to bilateral lower extremities while in bed, prophylactic anticoagulation (10) Advance care planning Current Visit: Yes Status: Acute Plan to address problem: Disease education conducted, patient is full code, prognosis discussed, care plan discussed, patient knowledges understanding and agreement with care plan, +30 minutes. Subjective Date of service: 03/16/20 Principal diagnosis: COVID/COPD Interval history: 64 YO Female with COPD, GERD, HTN, HLD, Anxiety, OA, Asthma Mild Intermittent, presents to ED for evaluation. Patient states that she has "not been feeling well" over the past 5 days with persistently worsening symptoms over the same timeframe. Patient states that she has experienced subjective fever, fatigue, muscle aches, generalized weakness, malaise, dry cough, decreased exercise tolerance, loss of sense of smell, loss of sense of taste, shortness of breath, nausea, multiple loose stools, and diminished oral intake. PT transported to [facility] via private vehicle for further care and evaluation of the aforementioned symptoms. The patient was seen and evaluated in the emergency department. All lab and imaging studies reviewed. The patient was found to be tachypneic with respiratory rate in the 30s as well as tachycardic with a pulse rate of 121, and a temperature of 101.9 F. Patient also found to have a pulse oximetry of 86% with exertion while on room air which is consistent with acute hypoxemic respiratory failure. The patient was also found to have a chest x-ray with bilateral pneumonia as well as as well as sepsis. Patient admitted to medical floor and initiated sepsis protocol. Patient also initiated on coronavirus protocol. Patient denies chills, chest pain, palpitations, productive cough, skin rash, recent ill contacts, or known exposure to COVID-19. Prior admission on 01/07/2020 reviewed. All medication listed at time of admission has been reconciled. Advanced care planning conducted in ED. Interval history: 64 YO Female HD #2 with acute hypoxemic respiratory failure, bilateral pneumonia, sepsis, Covid PCR pending, COPD, GERD, HTN, HLD, Anxiety, OA, Asthma Mild Intermittent. Patient resting comfortably in bed. Patient acknowledges improvement in shortness of breath. Patient denies pain. Day 3 03/15/2020\\ Patient on high flow oxygen Continue IV Decadron and remdesivir Day #4 03/16/2020 Patient on high flow oxygen Continue IV Decadron and IV remdesivir Objective - Constitutional Vitals: Vital Signs - 12hr 03/16/20 03/16/20 03/16/20 16:41 21:00 22:44 Temperature 97.6 F 97.9 F Pulse Rate 108 H 84 Respiratory 19 16 Rate Blood Pressure 131/74 122/59 O2 Sat by Pulse 90 94 93 Oximetry General appearance: Present: mild distress, well-nourished - EENT Eyes: PERRL, EOM intact ENT: hearing intact, clear oral mucosa Ears: bilateral: normal - Neck Neck: supple, normal ROM - Respiratory Respiratory effort: normal Respiratory: bilateral: CTA, rhonchi (Scattered) - Breasts Breasts: normal - Cardiovascular Heart rate: 88 Rhythm: regular Heart Sounds: Present: S1 & S2. Absent: gallop, rub Extremities: pulses intact, No edema, normal color, Full ROM - Gastrointestinal General gastrointestinal: Present: soft, non-tender, non-distended, normal bowel sounds - Genitourinary Female genitourinary: normal - Integumentary Integumentary: clear, warm, dry - Musculoskeletal Musculoskeletal: 1, strength equal bilaterally - Neurologic Neurologic: moves all extremities - Psychiatric Psychiatric: memory intact, appropriate mood/affect, intact judgment & insight - Labs CBC & Chem 7: 03/16/20 05:18 03/16/20 05:18 Labs: Abnormal lab results 03/16/20 03/16/20 03/16/20 Range/Units 05:18 05:18 10:34 RDW 16.4 H (13.2-15.2) % Stark % (Auto) 10.0 H (0.0-7.3) % D-Dimer 278.32 H (0-234) ng/mlDDU Potassium 3.1 L (3.6-5.0) mmol/L Lactate Dehydrogenase (91-180) units/L C-Reactive Protein (0.00-1.30) mg/dL Albumin 3.4 L (3.9-5) g/dL 03/16/20 Range/Units 10:34 RDW (13.2-15.2) % Stark % (Auto) (0.0-7.3) % D-Dimer (0-234) ng/mlDDU Potassium (3.6-5.0) mmol/L Lactate Dehydrogenase 268 H (91-180) units/L C-Reactive Protein 2.10 H (0.00-1.30) mg/dL Albumin (3.9-5) g/dL HEART Score - HEART Score Troponin: Troponin T < 0.010 ng/mL (0.00-0.029) 03/13/20 16:24
[2020-03-17] MEDS: BENZONATATE 100 MG CAP PO SCH ×3 (05:11→22:11)
[2020-03-17] MEDS: CEFEPIME/NS 2 GM/100 ML 2 GM/100 ML BAG IV SCH ×2 (05:12→18:52)
[2020-03-17] MEDS: ACETAMINOPHEN 325 MG TAB PO PRN ×2 (05:23→22:10)
--- NOTE | 2020-03-17 09:28 | Progress Note ---
Assessment and Plan Cultures: Blood culture no growth today SARS CoV2 PCR positive SARS Covid 2 IgG positive Assessment: 64 years old female with history of COPD on 3 L home O2, GERD, hypertension, hyperlipidemia, anxiety, asthma, admitted on 03/13/2020 secondary to 5-day history of generalized malaise, weakness, fever, dry cough, shortness of breath and dyspnea on exertion: #Severe COVID pneumonia/Bacterial pneumonia: Chest x-ray showed bilateral patchy infiltrate left greater than right. Ferritin normal. D-dimer mildly elevated. Repeat markers normal ferritin normal D-dimer. Procalcitonin elevated likely a bacterial component. #Acute on chronic hypoxemic respiratory failure: Patient is on 3 L at home. Worsening remains on 10 L high flow nasal cannula. CXR worsening pneumonia. #COPD with exacerbation #Diarrhea: Likely secondary to COVID-19. Recommendations: -Check transthoracic echo, unclear hypoxia with inflammatory markers for Covid - pending -Check BNP -Continue dexamethasone 6 mg IV/PO daily for 10 days- D4 of 10 -Continue remdesivir total 5 days- D4 of 5 -Monitor inflammatory markers - ferritin, Ddimer, CRP, LDH ordered today -Continue cefepime 2 g IV every 12 hours in light of elevated procalcitonin D3 of 5 -Check MRSA PCR -pending -Monitor liver function test on Remdesivir -Continue anticoagulation per System Protocol -Prone positioning as possible -SARS CoV-2 IgG is positive, patient is not a candidate for COVID convalescent p lasma All laboratory, cultures and imaging were reviewed. Will follow Shayy Quintana MD Infectious Diseases Senior Quality Technician [facility] M [phone] O [phone] Subjective Date of service: 03/17/20 Principal diagnosis: COVID/COPD Interval history: Now on HFNC 10L no fever Objective - Exam Narrative Exam: Physical Exam: reviewed ED and hospitalist notes. Deferred to prevent COVID-19 transmission. - Constitutional Vitals: Vital Signs Temp Pulse Resp BP Pulse Ox 97.4 F L 98 H 18 124/65 91 03/17/20 05:00 03/17/20 05:00 03/17/20 05:00 03/17/20 05:00 03/17/20 08:39 Temperature -Last 24 Hours Temperature 97.4 F Temperature 97.9 F Temperature 97.6 F Temperature 97.7 F - Labs CBC & Chem 7: 03/16/20 05:18 03/16/20 05:18 Labs: Abnormal lab results 03/16/20 03/16/20 Range/Units 10:34 10:34 D-Dimer 278.32 H (0-234) ng/mlDDU Lactate Dehydrogenase 268 H (91-180) units/L C-Reactive Protein 2.10 H (0.00-1.30) mg/dL
[2020-03-17] MEDS: DULoxetine 30 MG CAP PO SCH (10:15)
[2020-03-17] MEDS: OXYBUTYNIN 5 MG TAB PO SCH ×3 (10:15→22:11)
[2020-03-17] MEDS: GABAPENTIN 300 MG CAP PO SCH ×3 (10:15→22:10)
[2020-03-17] MEDS: lamoTRIgine 100 MG TAB PO SCH (10:16)
[2020-03-17] MEDS: DEXAMETHASONE 4 MG TAB PO SCH (10:16)
[2020-03-17] MEDS: ONDANSETRON 4 MG/2 ML INJ IV PRN ×2 (10:16→22:11)
[2020-03-17] MEDS: MONTELUKAST 10 MG TAB PO SCH (10:16)
[2020-03-17] MEDS: LITHIUM CARBONATE 150 MG CAP PO SCH ×2 (10:16→22:10)
[2020-03-17] MEDS: FAMOTIDINE 10 MG TAB PO SCH ×2 (10:16→22:10)
--- NOTE | 2020-03-17 19:30 | Progress Note ---
Assessment and Plan Assessment and Plan - Patient Problems (1) Sepsis Current Visit: Yes Status: Acute Plan to address problem: Continue IV antibiotics (2) Acute hypoxemic respiratory failure Current Visit: Yes Status: Acute Plan to address problem: Supplemental oxygen, nebulizer therapy, pulse oximetry, prone position while in bed, pulmonary toilet. On high flow oxygen (3) Pneumonia Current Visit: Yes Status: Acute Qualifiers: Laterality: bilateral Plan to address problem: Pneumonia protocol: Chest x-ray, CBC, CMP, nebulizer therapy, pulse oximetry, IV antibiotic therapy, blood culture, pulmonary toilet. (4) COVID-19 virus infection Current Visit: Yes Status: Acute Plan to address problem: Coronavirus positive Continue dexamethasone 6 mg IV/p.o. daily for 10 days Continue remdesivir total 5 days Continue cefepime every 12 hours Check MRSA PCR pending Monitor liver function test on remdesivir Sinus Covid 2 IgG is positive patient is not a candidate for Covid convalescent plasma Patient is not a candidate for Covid positive convalescent plasma (5) COPD (chronic obstructive pulmonary disease) Current Visit: Yes Status: Acute Qualifiers: Chronic bronchitis type: unspecified Plan to address problem: IV steroid therapy, supportive care, supplemental oxygen, IV antibiotic therapy. (6) GERD (gastroesophageal reflux disease) Current Visit: Yes Status: Acute Qualifiers: Esophagitis presence: without esophagitis Qualified Code(s): K21.9 - Gastr o-esophageal reflux disease without esophagitis Plan to address problem: PPI therapy, supportive care (7) Hypertension Current Visit: Yes Status: Acute Qualifiers: Hypertension type: essential hypertension Qualified Code(s): I10 - Essential (primary) hypertension Plan to address problem: Monitor blood pressure every shift, continue medical management. (8) Hyperlipidemia Current Visit: Yes Status: Acute Qualifiers: Hyperlipidemia type: mixed hyperlipidemia Qualified Code(s): E78.2 - Mixed hyperlipidemia Plan to address problem: Lipid panel, statin therapy, balanced diet, low-cholesterol diet. (9) DVT prophylaxis Current Visit: Yes Status: Acute Plan to address problem: SCD to bilateral lower extremities while in bed, prophylactic anticoagulation (10) Advance care planning Current Visit: Yes Status: Acute Plan to address problem: Disease education conducted, patient is full code, prognosis discussed, care plan discussed, patient knowledges understanding and agreement with care plan, +30 minutes. Subjective Date of service: 03/17/20 Principal diagnosis: COVID/COPD Interval history: 64 YO Female with COPD, GERD, HTN, HLD, Anxiety, OA, Asthma Mild Intermittent, presents to ED for evaluation. Patient states that she has "not been feeling well" over the past 5 days with persistently worsening symptoms over the same timeframe. Patient states that she has experienced subjective fever, fatigue, muscle aches, generalized weakness, malaise, dry cough, decreased exercise tolerance, loss of sense of smell, loss of sense of taste, shortness of breath, nausea, multiple loose stools, and diminished oral intake. PT transported to [facility] via private vehicle for further care and evaluation of the aforementioned symptoms. The patient was seen and evaluated in the emergency department. All lab and imaging studies reviewed. The patient was found to be tachypneic with respiratory rate in the 30s as well as tachycardic with a pulse rate of 121, and a temperature of 101.9 F. Patient also found to have a pulse oximetry of 86% with exertion while on room air which is consistent with acute hypoxemic respiratory failure. The patient was also found to have a chest x-ray with bilateral pneumonia as well as as well as sepsis. Patient admitted to medical floor and initiated sepsis protocol. Patient also initiated on coronavirus protocol. Patient denies chills, chest pain, palpitations, productive cough, skin rash, recent ill contacts, or known exposure to COVID-19. Prior admission on 01/07/2020 reviewed. All medication listed at time of admission has been reconciled. Advanced care planning conducted in ED. Interval history: 64 YO Female HD #2 with acute hypoxemic respiratory failure, bilateral pneumonia, sepsis, Covid PCR pending, COPD, GERD, HTN, HLD, Anxiety, OA, Asthma Mild Intermittent. Patient resting comfortably in bed. Patient acknowledges improvement in shortness of breath. Patient denies pain. Day 3 03/15/2020\\ Patient on high flow oxygen Continue IV Decadron and remdesivir Day #4 03/16/2020 Patient on high flow oxygen Continue IV Decadron and IV remdesivir Day#5 03/17/2020 Continue IV Decadron and IV remdesivir Patient on 10 L nasal cannula oxygen Objective - Constitutional Vitals: Vital Signs - 12hr 03/17/20 03/17/20 03/17/20 08:39 12:41 18:12 Temperature 97.3 F L 98.0 F Pulse Rate 109 H 100 H Respiratory 17 17 Rate Blood Pressure 144/73 138/74 O2 Sat by Pulse 91 81 L 91 Oximetry General appearance: Present: mild distress, well-nourished - EENT Eyes: PERRL, EOM intact ENT: hearing intact, clear oral mucosa Ears: bilateral: normal - Neck Neck: supple, normal ROM - Respiratory Respiratory effort: normal Respiratory: bilateral: CTA - Breasts Breasts: normal - Cardiovascular Heart rate: 78 Rhythm: regular Heart Sounds: Present: S1 & S2. Absent: gallop, rub Extremities: no ischemia, pulses intact, No edema, normal color, Full ROM - Gastrointestinal General gastrointestinal: Present: soft, non-tender, non-distended, normal bowel sounds - Genitourinary Female genitourinary: normal - Integumentary Integumentary: clear, warm, dry - Musculoskeletal Musculoskeletal: 1, strength equal bilaterally - Neurologic Neurologic: moves all extremities - Psychiatric Psychiatric: memory intact, appropriate mood/affect, intact judgment & insight - Allied health notes Allied health notes reviewed: nursing, case management - Labs CBC & Chem 7: 03/16/20 05:18 03/16/20 05:18 HEART Score - HEART Score Troponin: Troponin T < 0.010 ng/mL (0.00-0.029) 03/13/20 16:24
[2020-03-17 22:10] LABS: C-Reactive Protein 4.9 mg/dL (0.00-1.30)
[2020-03-17] MEDS: REMDESIVIR 100 MG in SODIUM CHLORIDE 0.9% 250ML 250 ML IV SCH (22:10)
[2020-03-17] MEDS: SODIUM CHLORIDE 0.9% 50 ML IVPB IV SCH (22:11)
[2020-03-17] MEDS: traZODone 100 MG TAB PO SCH (22:11)
[2020-03-18] MEDS: CEFEPIME/NS 2 GM/100 ML 2 GM/100 ML BAG IV SCH ×2 (05:24→22:52)
[2020-03-18] MEDS: BENZONATATE 100 MG CAP PO SCH ×3 (05:24→21:30)
[2020-03-18] MEDS: ONDANSETRON 4 MG/2 ML INJ IV PRN ×3 (06:22→21:30)
[2020-03-18] MEDS: ACETAMINOPHEN 325 MG TAB PO PRN ×2 (06:22→21:30)
[2020-03-18 06:55] LABS: Hematocrit 37.7 % (30.3-42.9); Hemoglobin 12.5 gm/dl (10.1-14.3); Mean Corpuscular HGB Conc 33 % (30-34); Mean Corpuscular Volume 83 fl (79-97); Platelet Count 361 K/mm3 (140-440); Red Blood Count 4.54 M/mm3 (3.65-5.03); Red Cell Distribution Width 15.8 % (13.2-15.2)
[2020-03-18 06:56] LABS: Eosinophils % (Auto) 0.2 % (0.0-4.3); Lymphocytes # (Auto) 1.7 K/mm3 (1.2-5.4); Lymphocytes % (Auto) 11.5 % (13.4-35.0)
[2020-03-18 07:18] LABS: Alanine Aminotransferase 10 units/L (7-56); Albumin 3.6 g/dL (3.9-5); Blood Urea Nitrogen 11 mg/dL (7-17); Calcium 9.5 mg/dL (8.4-10.2); Hemolysis Index 29
[2020-03-18 07:44] LABS: BUN/Creatinine Ratio 18
[2020-03-18] MEDS: FAMOTIDINE 10 MG TAB PO SCH ×2 (09:44→21:30)
[2020-03-18] MEDS: OXYBUTYNIN 5 MG TAB PO SCH ×3 (09:44→19:58)
[2020-03-18] MEDS: DULoxetine 30 MG CAP PO SCH (09:44)
[2020-03-18] MEDS: lamoTRIgine 100 MG TAB PO SCH (09:44)
[2020-03-18] MEDS: GABAPENTIN 300 MG CAP PO SCH ×3 (09:44→19:58)
[2020-03-18] MEDS: DEXAMETHASONE 4 MG TAB PO SCH (09:44)
[2020-03-18] MEDS: MONTELUKAST 10 MG TAB PO SCH (09:45)
--- NOTE | 2020-03-18 13:45 | Progress Note ---
Assessment and Plan Cultures: Blood culture no growth today SARS CoV2 PCR positive SARS Covid 2 IgG positive Assessment: 64 years old female with history of COPD on 3 L home O2, GERD, hypertension, hyperlipidemia, anxiety, asthma, admitted on 03/13/2020 secondary to 5-day history of generalized malaise, weakness, fever, dry cough, shortness of breath and dyspnea on exertion: #Severe COVID pneumonia/Bacterial pneumonia: Chest x-ray showed bilateral patchy infiltrate left greater than right. Ferritin normal. D-dimer mildly elevated. Repeat markers normal ferritin normal D-dimer. Procalcitonin elevated likely a bacterial component. #Acute on chronic hypoxemic respiratory failure: Patient is on 3 L at home. Worsening remains on 15 L high flow nasal cannula, sats down to 88%. CXR worsening pneumonia. #COPD with exacerbation #Diarrhea: Likely secondary to COVID-19. Recommendations: -Check transthoracic echo - pending -Check BNP -pending -Continue dexamethasone 6 mg IV/PO daily for 10 days- D5 of 10 -Continue remdesivir total 5 days- D5 of 5 -Monitor inflammatory markers - ferritin, Ddimer, CRP, LDH ordered today -Continue cefepime 2 g IV every 12 hours in light of elevated procalcitonin D4 of 5 -Check MRSA PCR -pending -Monitor liver function test on Remdesivir -Continue anticoagulation per System Protocol -Prone positioning as possible -SARS CoV-2 IgG is positive, patient is not a candidate for COVID convalescent plasma Dr. Li rounding this weekend All laboratory, cultures and imaging were reviewed. Will follow Shayy Quintana MD Infectious Diseases Gear Coding Machine Operator [facility] [phone] Subjective Date of service: 03/18/20 Principal diagnosis: COVID/COPD Interval history: Now on HFNC 15L no fever, O2 sats down to 88% Objective - Exam Narrative Exam: Physical Exam: reviewed ED and hospitalist notes. Deferred to prevent COVID-19 transmission. - Constitutional Vitals: Vital Signs Temp Pulse Resp BP Pulse Ox 97.6 F 113 H 20 128/67 90 03/18/20 04:57 03/18/20 04:57 03/18/20 04:57 03/18/20 04:57 03/18/20 04:57 Temperature -Last 24 Hours Temperature 97.6 F Temperature 97.8 F Temperature 98.0 F - Labs CBC & Chem 7: 03/18/20 05:58 03/18/20 05:58 Labs: Abnormal lab results 03/17/20 03/18/20 03/18/20 Range/Units 21:24 05:58 05:58 WBC 14.8 H (4.5-11.0) K/mm3 RDW 15.8 H (13.2-15.2) % Lymph % (Auto) 11.5 L (13.4-35.0) % Frontier # (Auto) 1.0 H (0.0-0.8) K/mm3 Seg Neutrophils % 81.3 H (40.0-70.0) % Seg Neutrophils # 12.0 H (1.8-7.7) K/mm3 Potassium 2.9 L* (3.6-5.0) mmol/L Carbon Dioxide 18 L (22-30) mmol/L Glucose 182 H (65-100) mg/dL Lactate Dehydrogenase 268 H (91-180) units/L C-Reactive Protein 4.90 H (0.00-1.30) mg/dL Albumin 3.6 L (3.9-5) g/dL
[2020-03-18] MEDS: POTASSIUM CHLORIDE ER 20 MEQ TAB PO SCH ×2 (14:26→19:50)
[2020-03-18] MEDS: LITHIUM CARBONATE 150 MG CAP PO SCH ×2 (14:27→21:30)
[2020-03-18] MEDS: traZODone 100 MG TAB PO SCH (21:30)
[2020-03-18] MEDS: REMDESIVIR 100 MG in SODIUM CHLORIDE 0.9% 250ML 250 ML IV SCH (22:50)
[2020-03-18] MEDS: SODIUM CHLORIDE 0.9% 50 ML IVPB IV SCH (23:52)
--- NOTE | 2020-03-18 23:59 | Progress Note ---
Assessment and Plan Assessment and Plan - Patient Problems (1) Sepsis Current Visit: Yes Status: Acute Plan to address problem: Continue IV antibiotics (2) Acute hypoxemic respiratory failure Current Visit: Yes Status: Acute Plan to address problem: Supplemental oxygen, nebulizer therapy, pulse oximetry, prone position while in bed, pulmonary toilet. On high flow oxygen (3) Pneumonia Current Visit: Yes Status: Acute Qualifiers: Laterality: bilateral Plan to address problem: Pneumonia protocol: Chest x-ray, CBC, CMP, nebulizer therapy, pulse oximetry, IV antibiotic therapy, blood culture, pulmonary toilet. (4) COVID-19 virus infection Current Visit: Yes Status: Acute Plan to address problem: Coronavirus positive Continue dexamethasone 6 mg IV/p.o. daily for 10 days Continue remdesivir total 5 days Continue cefepime every 12 hours Check MRSA PCR pending Monitor liver function test on remdesivir Sinus Covid 2 IgG is positive patient is not a candidate for Covid convalescent plasma Patient is not a candidate for Covid positive convalescent plasma (5) COPD (chronic obstructive pulmonary disease) Current Visit: Yes Status: Acute Qualifiers: Chronic bronchitis type: unspecified Plan to address problem: IV steroid therapy, supportive care, supplemental oxygen, IV antibiotic therapy. (6) GERD (gastroesophageal reflux disease) Current Visit: Yes Status: Acute Qualifiers: Esophagitis presence: without esophagitis Qualified Code(s): K21.9 - Gastr o-esophageal reflux disease without esophagitis Plan to address problem: PPI therapy, supportive care (7) Hypertension Current Visit: Yes Status: Acute Qualifiers: Hypertension type: essential hypertension Qualified Code(s): I10 - Essential (primary) hypertension Plan to address problem: Monitor blood pressure every shift, continue medical management. (8) Hyperlipidemia Current Visit: Yes Status: Acute Qualifiers: Hyperlipidemia type: mixed hyperlipidemia Qualified Code(s): E78.2 - Mixed hyperlipidemia Plan to address problem: Lipid panel, statin therapy, balanced diet, low-cholesterol diet. (9) DVT prophylaxis Current Visit: Yes Status: Acute Plan to address problem: SCD to bilateral lower extremities while in bed, prophylactic anticoagulation (10) Advance care planning Current Visit: Yes Status: Acute Plan to address problem: Disease education conducted, patient is full code, prognosis discussed, care plan discussed, patient knowledges understanding and agreement with care plan, +30 minutes. Subjective Date of service: 03/18/20 Principal diagnosis: COVID/COPD Interval history: 64 YO Female with COPD, GERD, HTN, HLD, Anxiety, OA, Asthma Mild Intermittent, presents to ED for evaluation. Patient states that she has "not been feeling well" over the past 5 days with persistently worsening symptoms over the same timeframe. Patient states that she has experienced subjective fever, fatigue, muscle aches, generalized weakness, malaise, dry cough, decreased exercise tolerance, loss of sense of smell, loss of sense of taste, shortness of breath, nausea, multiple loose stools, and diminished oral intake. PT transported to [facility] via private vehicle for further care and evaluation of the aforementioned symptoms. The patient was seen and evaluated in the emergency department. All lab and imaging studies reviewed. The patient was found to be tachypneic with respiratory rate in the 30s as well as tachycardic with a pulse rate of 121, and a temperature of 101.9 F. Patient also found to have a pulse oximetry of 86% with exertion while on room air which is consistent with acute hypoxemic respiratory failure. The patient was also found to have a chest x-ray with bilateral pneumonia as well as as well as sepsis. Patient admitted to medical floor and initiated sepsis protocol. Patient also initiated on coronavirus protocol. Patient denies chills, chest pain, palpitations, productive cough, skin rash, recent ill contacts, or known exposure to COVID-19. Prior admission on 01/07/2020 reviewed. All medication listed at time of admission has been reconciled. Advanced care planning conducted in ED. Interval history: 64 YO Female HD #2 with acute hypoxemic respiratory failure, bilateral pneumonia, sepsis, Covid PCR pending, COPD, GERD, HTN, HLD, Anxiety, OA, Asthma Mild Intermittent. Patient resting comfortably in bed. Patient acknowledges improvement in shortness of breath. Patient denies pain. Day 3 03/15/2020\\ Patient on high flow oxygen Continue IV Decadron and remdesivir Day #4 03/16/2020 Patient on high flow oxygen Continue IV Decadron and IV remdesivir Day#5 03/17/2020 Continue IV Decadron and IV remdesivir Patient on 10 L nasal cannula oxygen Day #6 03/18/2020 Patient on 10 L nasal cannula oxygen Objective - Constitutional Vitals: Vital Signs - 12hr 1203/18/20 03/18/20 12:23 16:00 18:49 Temperature 98.4 F 98.4 F Pulse Rate 99 H 100 H Respiratory 24 24 Rate Blood Pressure 135/61 122/64 O2 Sat by Pulse 92 95 90 Oximetry 03/18/20 03/18/20 20:00 22:18 Temperature Pulse Rate Respiratory Rate Blood Pressure O2 Sat by Pulse 88 95 Oximetry General appearance: Present: mild distress, well-nourished - EENT Eyes: PERRL, EOM intact ENT: hearing intact, clear oral mucosa Ears: bilateral: normal - Neck Neck: supple, normal ROM - Respiratory Respiratory effort: normal Respiratory: bilateral: CTA - Breasts Breasts: normal - Cardiovascular Heart rate: 78 Rhythm: regular Heart Sounds: Present: S1 & S2. Absent: gallop, rub Extremities: pulses intact, No edema, normal color, Full ROM - Gastrointestinal General gastrointestinal: Present: soft, non-tender, non-distended, normal bowel sounds - Genitourinary Female genitourinary: normal - Integumentary Integumentary: clear, warm, dry - Musculoskeletal Musculoskeletal: 1, strength equal bilaterally - Neurologic Neurologic: moves all extremities - Psychiatric Psychiatric: memory intact, appropriate mood/affect, intact judgment & insight - Labs CBC & Chem 7: 03/18/20 05:58 03/18/20 05:58 Labs: Abnormal lab results 03/18/20 03/18/20 Range/Units 05:58 05:58 WBC 14.8 H (4.5-11.0) K/mm3 RDW 15.8 H (13.2-15.2) % Lymph % (Auto) 11.5 L (13.4-35.0) % [place] # (Auto) 1.0 H (0.0-0.8) K/mm3 Seg Neutrophils % 81.3 H (40.0-70.0) % Seg Neutrophils # 12.0 H (1.8-7.7) K/mm3 Potassium 2.9 L* (3.6-5.0) mmol/L Carbon Dioxide 18 L (22-30) mmol/L Albumin 3.6 L (3.9-5) g/dL HEART Score - HEART Score Troponin: Troponin T < 0.010 ng/mL (0.00-0.029) 03/13/20 16:24
[2020-03-19] MEDS: CEFEPIME/NS 2 GM/100 ML 2 GM/100 ML BAG IV SCH (06:15)
[2020-03-19] MEDS: BENZONATATE 100 MG CAP PO SCH ×3 (06:15→21:56)
[2020-03-19] MEDS: ONDANSETRON 4 MG/2 ML INJ IV PRN ×2 (08:38→19:01)
[2020-03-19] MEDS: OXYBUTYNIN 5 MG TAB PO SCH ×3 (08:38→19:27)
[2020-03-19] MEDS: GABAPENTIN 300 MG CAP PO SCH ×3 (08:39→19:27)
[2020-03-19] MEDS: ACETAMINOPHEN 325 MG TAB PO PRN ×2 (08:39→19:01)
[2020-03-19] MEDS: DULoxetine 30 MG CAP PO SCH (11:36)
[2020-03-19] MEDS: LITHIUM CARBONATE 150 MG CAP PO SCH ×2 (11:36→21:57)
[2020-03-19] MEDS: MONTELUKAST 10 MG TAB PO SCH (11:36)
[2020-03-19] MEDS: lamoTRIgine 100 MG TAB PO SCH (11:36)
[2020-03-19] MEDS: FAMOTIDINE 10 MG TAB PO SCH ×2 (11:37→21:56)
[2020-03-19] MEDS: DEXAMETHASONE 4 MG TAB PO SCH (11:37)
[2020-03-19] MEDS: traZODone 100 MG TAB PO SCH (21:57)
[2020-03-19] MEDS: BUTALB/ACETAMINOPHEN/CAFFEINE TAB PO PRN (21:58)
[2020-03-20] MEDS: BENZONATATE 100 MG CAP PO SCH ×3 (05:57→21:31)
[2020-03-20] MEDS: ONDANSETRON 4 MG/2 ML INJ IV PRN ×2 (08:37→20:10)
[2020-03-20] MEDS: GABAPENTIN 300 MG CAP PO SCH ×3 (08:37→20:07)
[2020-03-20] MEDS: OXYBUTYNIN 5 MG TAB PO SCH ×3 (08:37→20:06)
[2020-03-20] MEDS: FAMOTIDINE 10 MG TAB PO SCH ×2 (10:39→21:30)
[2020-03-20] MEDS: MONTELUKAST 10 MG TAB PO SCH (10:40)
[2020-03-20] MEDS: DEXAMETHASONE 4 MG TAB PO SCH (10:40)
[2020-03-20] MEDS: DULoxetine 30 MG CAP PO SCH (10:40)
[2020-03-20] MEDS: lamoTRIgine 100 MG TAB PO SCH (10:40)
[2020-03-20] MEDS: ERGOCALCIFEROL (VIT D2) 50,000 UNIT CAP PO SCH (10:41)
[2020-03-20] MEDS: LITHIUM CARBONATE 150 MG CAP PO SCH ×2 (10:41→21:37)
[2020-03-20] MEDS: traZODone 100 MG TAB PO SCH (21:30)
[2020-03-20] MEDS: BUTALB/ACETAMINOPHEN/CAFFEINE TAB PO PRN (21:33)
--- NOTE | 2020-03-20 23:07 | Progress Note ---
Assessment and Plan Assessment and Plan - Patient Problems (1) Sepsis Current Visit: Yes Status: Acute Plan to address problem: Continue IV antibiotics (2) Acute hypoxemic respiratory failure Current Visit: Yes Status: Acute Plan to address problem: Supplemental oxygen, nebulizer therapy, pulse oximetry, prone position while in bed, pulmonary toilet. On high flow oxygen (3) Pneumonia Current Visit: Yes Status: Acute Qualifiers: Laterality: bilateral Plan to address problem: Pneumonia protocol: Chest x-ray, CBC, CMP, nebulizer therapy, pulse oximetry, IV antibiotic therapy, blood culture, pulmonary toilet. (4) COVID-19 virus infection Current Visit: Yes Status: Acute Plan to address problem: Coronavirus positive Continue dexamethasone 6 mg IV/p.o. daily for 10 days Continue remdesivir total 5 days Continue cefepime every 12 hours Check MRSA PCR pending Monitor liver function test on remdesivir Sinus Covid 2 IgG is positive patient is not a candidate for Covid convalescent plasma Patient is not a candidate for Covid positive convalescent plasma (5) COPD (chronic obstructive pulmonary disease) Current Visit: Yes Status: Acute Qualifiers: Chronic bronchitis type: unspecified Plan to address problem: IV steroid therapy, supportive care, supplemental oxygen, IV antibiotic therapy. (6) GERD (gastroesophageal reflux disease) Current Visit: Yes Status: Acute Qualifiers: Esophagitis presence: without esophagitis Qualified Code(s): K21.9 - Gastr o-esophageal reflux disease without esophagitis Plan to address problem: PPI therapy, supportive care (7) Hypertension Current Visit: Yes Status: Acute Qualifiers: Hypertension type: essential hypertension Qualified Code(s): I10 - Essential (primary) hypertension Plan to address problem: Monitor blood pressure every shift, continue medical management. (8) Hyperlipidemia Current Visit: Yes Status: Acute Qualifiers: Hyperlipidemia type: mixed hyperlipidemia Qualified Code(s): E78.2 - Mixed hyperlipidemia Plan to address problem: Lipid panel, statin therapy, balanced diet, low-cholesterol diet. (9) DVT prophylaxis Current Visit: Yes Status: Acute Plan to address problem: SCD to bilateral lower extremities while in bed, prophylactic anticoagulation (10) hypokalemia Supplemented Subjective Date of service: 03/20/20 Principal diagnosis: COVID/COPD Interval history: 64 YO Female with COPD, GERD, HTN, HLD, Anxiety, OA, Asthma Mild Intermittent, presents to ED for evaluation. Patient states that she has "not been feeling well" over the past 5 days with persistently worsening symptoms over the same timeframe. Patient states that she has experienced subjective fever, fatigue, muscle aches, generalized weakness, malaise, dry cough, decreased exercise tolerance, loss of sense of smell, loss of sense of taste, shortness of breath, nausea, multiple loose stools, and diminished oral intake. PT transported to [facility] via private vehicle for further care and evaluation of the aforementioned symptoms. The patient was seen and evaluated in the emergency department. All lab and imaging studies reviewed. The patient was found to be tachypneic with respiratory rate in the 30s as well as tachycardic with a pulse rate of 121, and a temperature of 101.9 F. Patient also found to have a pulse oximetry of 86% with exertion while on room air which is consistent with acute hypoxemic respiratory failure. The patient was also found to have a chest x-ray with bilateral pneumonia as well as as well as sepsis. Patient admitted to medical floor and initiated sepsis protocol. Patient also initiated on coronavirus protocol. Patient denies chills, chest pain, palpitations, productive cough, skin rash, recent ill contacts, or known exposure to COVID-19. Prior admission on 01/07/2020 reviewed. All medication listed at time of admission has been reconciled. Advanced care planning conducted in ED. Interval history: 64 YO Female HD #2 with acute hypoxemic respiratory failure, bilateral pneumonia , sepsis, Covid PCR pending, COPD, GERD, HTN, HLD, Anxiety, OA, Asthma Mild Intermittent. Patient resting comfortably in bed. Patient acknowledges improvement in shortness of breath. Patient denies pain. Day 3 03/15/2020\\ Patient on high flow oxygen Continue IV Decadron and remdesivir Day #4 03/16/2020 Patient on high flow oxygen Continue IV Decadron and IV remdesivir Day#5 03/17/2020 Continue IV Decadron and IV remdesivir Patient on 10 L nasal cannula oxygen Day #6 03/18/2020 Patient on 10 L nasal cannula oxygen 03/19/2020 Day #7 Patient on high flow oxygen Day number 10/11/2019 Patient on high flow oxygen Objective - Constitutional Vitals: Vital Signs - 12hr 03/20/20 03/20/20 03/20/20 12:10 14:00 17:58 Temperature 97.6 F 97.8 F Pulse Rate 116 H 104 H Respiratory 22 20 Rate Blood Pressure 106/52 112/61 O2 Sat by Pulse 92 92 94 Oximetry 03/20/20 03/20/20 20:48 21:52 Temperature 97.3 F L Pulse Rate Respiratory 28 H Rate Blood Pressure 125/57 O2 Sat by Pulse 92 Oximetry General appearance: Present: no acute distress, well-nourished - EENT Eyes: PERRL, EOM intact ENT: hearing intact, clear oral mucosa Ears: bilateral: normal - Neck Neck: supple, normal ROM - Respiratory Respiratory effort: normal Respiratory: bilateral: CTA - Breasts Breasts: normal - Cardiovascular Heart rate: 78 Rhythm: regular Heart Sounds: Present: S1 & S2. Absent: gallop, rub Extremities: pulses intact, No edema, normal color, Full ROM - Gastrointestinal General gastrointestinal: Present: soft, non-tender, non-distended, normal bowel sounds - Genitourinary Female genitourinary: normal - Integumentary Integumentary: clear, warm, dry - Musculoskeletal Musculoskeletal: 1, strength equal bilaterally - Neurologic Neurologic: moves all extremities - Psychiatric Psychiatric: memory intact, appropriate mood/affect, intact judgment & insight - Labs CBC & Chem 7: 03/18/20 05:58 03/18/20 05:58 HEART Score - HEART Score Troponin: Troponin T < 0.010 ng/mL (0.00-0.029) 03/13/20 16:24
[2020-03-21] MEDS: POTASSIUM CHLORIDE ER 20 MEQ TAB PO SCH ×3 (04:01→21:42)
[2020-03-21] MEDS: BUTALB/ACETAMINOPHEN/CAFFEINE TAB PO PRN ×3 (04:01→17:08)
[2020-03-21] MEDS: ONDANSETRON 4 MG/2 ML INJ IV PRN (05:13)
[2020-03-21] MEDS: BENZONATATE 100 MG CAP PO SCH ×3 (05:13→21:44)
[2020-03-21] MEDS ORDERED: ALPRAZolam 0.25 MG TAB PO ONE (05:26)
[2020-03-21 07:23] LABS: Basophils % (Auto) 0.2 % (0.0-1.8); Eosinophils # (Auto) 0.3 K/mm3 (0.0-0.4); Hematocrit 38.8 % (30.3-42.9); Hemoglobin 12.7 gm/dl (10.1-14.3); Lymphocytes # (Auto) 1.6 K/mm3 (1.2-5.4); Lymphocytes % (Auto) 11.5 % (13.4-35.0); Mean Corpuscular HGB Conc 33 % (30-34); Mean Corpuscular Volume 83 fl (79-97); Monocytes # (Auto) 1.1 K/mm3 (0.0-0.8); Monocytes % (Auto) 7.9 % (0.0-7.3); Platelet Count 513 K/mm3 (140-440); Red Blood Count 4.67 M/mm3 (3.65-5.03); Red Cell Distribution Width 16.1 % (13.2-15.2)
[2020-03-21 07:56] LABS: Alanine Aminotransferase 8 units/L (7-56); Albumin 3.6 g/dL (3.9-5); Blood Urea Nitrogen 13 mg/dL (7-17); Calcium 9.8 mg/dL (8.4-10.2); Hemolysis Index 73
[2020-03-21 08:36] LABS: BUN/Creatinine Ratio 22
[2020-03-21] MEDS: lamoTRIgine 100 MG TAB PO SCH (11:08)
[2020-03-21] MEDS: DEXAMETHASONE 4 MG TAB PO SCH (11:08)
[2020-03-21] MEDS: MONTELUKAST 10 MG TAB PO SCH (11:09)
[2020-03-21] MEDS: DULoxetine 30 MG CAP PO SCH (11:09)
[2020-03-21] MEDS: FAMOTIDINE 10 MG TAB PO SCH ×2 (11:10→21:44)
[2020-03-21] MEDS: LITHIUM CARBONATE 150 MG CAP PO SCH ×2 (11:10→21:44)
[2020-03-21] MEDS: GABAPENTIN 300 MG CAP PO SCH ×3 (11:21→21:44)
[2020-03-21] MEDS: OXYBUTYNIN 5 MG TAB PO SCH ×3 (11:21→21:44)
[2020-03-21] MEDS ORDERED: POTASSIUM CHLORIDE ER 20 MEQ TAB PO ONE (12:00)
--- NOTE | 2020-03-21 12:49 | Progress Note ---
Assessment and Plan Cultures: Blood culture no growth SARS CoV2 PCR positive SARS Covid 2 IgG positive Assessment: 64 years old female with history of COPD on 3 L home O2, GERD, hypertension, hyperlipidemia, anxiety, asthma, admitted on 03/13/2020 secondary to 5-day history of generalized malaise, weakness, fever, dry cough, shortness of breath and dyspnea on exertion: #Severe COVID pneumonia/Bacterial pneumonia: Chest x-ray showed bilateral patchy infiltrate left greater than right. Ferritin was normal. D-dimer mildly elevated. Procalcitonin elevated likely a bacterial component. #Acute on chronic hypoxemic respiratory failure: Patient is on 3 L at home, currently on HFNC. #COPD with exacerbation #Diarrhea: Likely secondary to COVID-19. Recommendations: -Completed remdesivir -Continue steroids, D9 of 10 -Completed cefepime -SARS CoV-2 IgG is positive, patient is not a candidate for COVID convalescent plasma -Continue oxygen weaning Angel Li MD, FACP [facility] ([facility] O: [phone] F: [phone] Subjective Date of service: 03/21/20 Principal diagnosis: COVID/COPD Interval history: Afebrile. Remains on high flow. Objective - Exam Narrative Exam: Physical Exam (reviewed in chart to minimize risk of transmission) Constitutional: deferred Head, Ears, Nose: deferred Eyes: deferred Neck: deferred Oral: deferred Cardiovascular: deferred Respiratory: deferred GI: deferred Musculoskeletal: deferred Skin: deferred Hem/Lymphatic: deferred Psych: deferred Neurological: deferred - Constitutional Vitals: Vital Signs Temp Pulse Resp BP Pulse Ox 98.3 F 106 H 24 115/59 89 03/21/20 05:22 03/21/20 05:22 03/21/20 05:22 03/21/20 05:22 03/21/20 08:00 Temperature -Last 24 Hours Temperature 98.3 F Temperature 97.3 F Temperature 97.8 F - Labs CBC & Chem 7: 03/21/20 05:27 03/21/20 05:27 Labs: Abnormal lab results 03/21/20 03/21/20 Range/Units 05:27 05:27 WBC 14.1 H (4.5-11.0) K/mm3 MCH 27 L (28-32) pg RDW 16.1 H (13.2-15.2) % Plt Count 513 H (140-440) K/mm3 Lymph % (Auto) 11.5 L (13.4-35.0) % [place] % (Auto) 7.9 H (0.0-7.3) % [place] # (Auto) 1.1 H (0.0-0.8) K/mm3 Seg Neutrophils % 78.4 H (40.0-70.0) % Seg Neutrophils # 11.1 H (1.8-7.7) K/mm3 Albumin 3.6 L (3.9-5) g/dL
[2020-03-21] MEDS: traZODone 100 MG TAB PO SCH (21:44)
--- NOTE | 2020-03-22 01:33 | Progress Note ---
Assessment and Plan Assessment and Plan - Patient Problems (1) Sepsis Current Visit: Yes Status: Acute Plan to address problem: Continue IV antibiotics (2) Acute hypoxemic respiratory failure Current Visit: Yes Status: Acute Plan to address problem: Supplemental oxygen, nebulizer therapy, pulse oximetry, prone position while in bed, pulmonary toilet. On high flow oxygen (3) Pneumonia Current Visit: Yes Status: Acute Qualifiers: Laterality: bilateral Plan to address problem: Pneumonia protocol: Chest x-ray, CBC, CMP, nebulizer therapy, pulse oximetry, IV antibiotic therapy, blood culture, pulmonary toilet. (4) COVID-19 virus infection Current Visit: Yes Status: Acute Plan to address problem: Coronavirus positive Continue dexamethasone 6 mg IV/p.o. daily for 10 days Continue remdesivir total 5 days Continue cefepime every 12 hours Check MRSA PCR pending Monitor liver function test on remdesivir Sinus Covid 2 IgG is positive patient is not a candidate for Covid convalescent plasma Patient is not a candidate for Covid positive convalescent plasma (5) COPD (chronic obstructive pulmonary disease) Current Visit: Yes Status: Acute Qualifiers: Chronic bronchitis type: unspecified Plan to address problem: IV steroid therapy, supportive care, supplemental oxygen, IV antibiotic therapy. (6) GERD (gastroesophageal reflux disease) Current Visit: Yes Status: Acute Qualifiers: Esophagitis presence: without esophagitis Qualified Code(s): K21.9 - Gastr o-esophageal reflux disease without esophagitis Plan to address problem: PPI therapy, supportive care (7) Hypertension Current Visit: Yes Status: Acute Qualifiers: Hypertension type: essential hypertension Qualified Code(s): I10 - Essential (primary) hypertension Plan to address problem: Monitor blood pressure every shift, continue medical management. (8) Hyperlipidemia Current Visit: Yes Status: Acute Qualifiers: Hyperlipidemia type: mixed hyperlipidemia Qualified Code(s): E78.2 - Mixed hyperlipidemia Plan to address problem: Lipid panel, statin therapy, balanced diet, low-cholesterol diet. (9) DVT prophylaxis Current Visit: Yes Status: Acute Plan to address problem: SCD to bilateral lower extremities while in bed, prophylactic anticoagulation (10) hypokalemia Supplemented Subjective Date of service: 03/21/20 Principal diagnosis: COVID/COPD Interval history: 64 YO Female with COPD, GERD, HTN, HLD, Anxiety, OA, Asthma Mild Intermittent, presents to ED for evaluation. Patient states that she has "not been feeling well" over the past 5 days with persistently worsening symptoms over the same timeframe. Patient states that she has experienced subjective fever, fatigue, muscle aches, generalized weakness, malaise, dry cough, decreased exercise tolerance, loss of sense of smell, loss of sense of taste, shortness of breath, nausea, multiple loose stools, and diminished oral intake. PT transported to [facility] via private vehicle for further care and evaluation of the aforementioned symptoms. The patient was seen and evaluated in the emergency department. All lab and imaging studies reviewed. The patient was found to be tachypneic with respiratory rate in the 30s as well as tachycardic with a pulse rate of 121, and a temperature of 101.9 F. Patient also found to have a pulse oximetry of 86% with exertion while on room air which is consistent with acute hypoxemic respiratory failure. The patient was also found to have a chest x-ray with bilateral pneumonia as well as as well as sepsis. Patient admitted to medical floor and initiated sepsis protocol. Patient also initiated on coronavirus protocol. Patient denies chills, chest pain, palpitations, productive cough, skin rash, recent ill contacts, or known exposure to COVID-19. Prior admission on 01/07/2020 reviewed. All medication listed at time of admission has been reconciled. Advanced care planning conducted in ED. Interval history: 64 YO Female HD #2 with acute hypoxemic respiratory failure, bilateral pneumonia , sepsis, Covid PCR pending, COPD, GERD, HTN, HLD, Anxiety, OA, Asthma Mild Intermittent. Patient resting comfortably in bed. Patient acknowledges improvement in shortness of breath. Patient denies pain. Day 3 03/15/2020\\ Patient on high flow oxygen Continue IV Decadron and remdesivir Day #4 03/16/2020 Patient on high flow oxygen Continue IV Decadron and IV remdesivir Day#5 03/17/2020 Continue IV Decadron and IV remdesivir Patient on 10 L nasal cannula oxygen Day #6 03/18/2020 Patient on 10 L nasal cannula oxygen 03/19/2020 Day #7 Patient on high flow oxygen Day # 8 03/20/20 Patient on high flow oxygen 03/21/20 On High flow oxygen Objective - Constitutional Vitals: Vital Signs - 12hr 03/21/20 03/21/20 03/21/20 18:11 21:17 23:18 Temperature 98.7 F 96.2 F L Pulse Rate 104 H 107 H Respiratory 24 18 Rate Blood Pressure 115/68 142/70 O2 Sat by Pulse 92 95 91 Oximetry General appearance: Present: no acute distress, well-nourished - EENT Eyes: PERRL, EOM intact ENT: hearing intact, clear oral mucosa Ears: bilateral: normal - Neck Neck: supple, normal ROM - Respiratory Respiratory effort: normal Respiratory: bilateral: CTA - Breasts Breasts: normal - Cardiovascular Heart rate: 99 Rhythm: regular Heart Sounds: Present: S1 & S2. Absent: gallop, rub Extremities: pulses intact, No edema, normal color, Full ROM - Gastrointestinal General gastrointestinal: Present: soft, non-tender, non-distended, normal bowel sounds - Genitourinary Female genitourinary: normal - Integumentary Integumentary: clear, warm, dry - Musculoskeletal Musculoskeletal: 1, strength equal bilaterally - Neurologic Neurologic: moves all extremities - Psychiatric Psychiatric: memory intact, appropriate mood/affect, intact judgment & insight - Labs CBC & Chem 7: 03/21/20 05:27 03/21/20 05:27 Labs: Abnormal lab results 03/21/20 03/21/20 Range/Units 05:27 05:27 WBC 14.1 H (4.5-11.0) K/mm3 MCH 27 L (28-32) pg RDW 16.1 H (13.2-15.2) % Plt Count 513 H (140-440) K/mm3 Lymph % (Auto) 11.5 L (13.4-35.0) % [place] % (Auto) 7.9 H (0.0-7.3) % [place] # (Auto) 1.1 H (0.0-0.8) K/mm3 Seg Neutrophils % 78.4 H (40.0-70.0) % Seg Neutrophils # 11.1 H (1.8-7.7) K/mm3 Albumin 3.6 L (3.9-5) g/dL HEART Score - HEART Score Troponin: Troponin T < 0.010 ng/mL (0.00-0.029) 03/13/20 16:24
[2020-03-22] MEDS: ONDANSETRON 4 MG/2 ML INJ IV PRN ×2 (04:54→13:47)
[2020-03-22] MEDS: BUTALB/ACETAMINOPHEN/CAFFEINE TAB PO PRN (04:54)
[2020-03-22] MEDS: BENZONATATE 100 MG CAP PO SCH ×4 (04:55→22:57)
[2020-03-22] MEDS: OXYBUTYNIN 5 MG TAB PO SCH ×3 (08:32→22:57)
[2020-03-22] MEDS: GABAPENTIN 300 MG CAP PO SCH ×3 (08:32→22:57)
[2020-03-22] MEDS: MONTELUKAST 10 MG TAB PO SCH (10:24)
[2020-03-22] MEDS: DULoxetine 30 MG CAP PO SCH (10:24)
[2020-03-22] MEDS: FAMOTIDINE 10 MG TAB PO SCH ×2 (10:24→22:58)
[2020-03-22] MEDS: lamoTRIgine 100 MG TAB PO SCH (10:25)
[2020-03-22] MEDS: DEXAMETHASONE 4 MG TAB PO SCH (10:25)
--- NOTE | 2020-03-22 10:39 | Progress Note ---
Assessment and Plan Cultures: Blood culture no growth SARS CoV2 PCR positive SARS Covid 2 IgG positive Assessment: 64 years old female with history of COPD on 3 L home O2, GERD, hypertension, hyperlipidemia, anxiety, asthma, admitted on 03/13/2020 secondary to 5-day history of generalized malaise, weakness, fever, dry cough, shortness of breath and dyspnea on exertion: #Severe COVID pneumonia/Bacterial pneumonia: Chest x-ray showed bilateral patchy infiltrate left greater than right. Ferritin was normal. D-dimer mildly elevated. Procalcitonin elevated likely a bacterial component. #Acute on chronic hypoxemic respiratory failure: Patient is on 3 L at home, currently on HFNC. #COPD with exacerbation #Diarrhea: Likely secondary to COVID-19. Recommendations: -Completed remdesivir -Continue steroids, D10, OK to extend course given ongoing hypoxia. Consider pulmonary consult -Completed cefepime -SARS CoV-2 IgG is positive, patient is not a candidate for COVID convalescent plasma -Continue oxygen weaning Angel Li MD, FACP [facility] ([facility] O: [phone] F: [phone] Subjective Date of service: 03/22/20 Principal diagnosis: COVID/COPD Interval history: Afebrile. Remains on high flow. Objective - Exam Narrative Exam: Physical Exam (reviewed in chart to minimize risk of transmission) Constitutional: deferred Head, Ears, Nose: deferred Eyes: deferred Neck: deferred Oral: deferred Cardiovascular: deferred Respiratory: deferred GI: deferred Musculoskeletal: deferred Skin: deferred Hem/Lymphatic: deferred Psych: deferred Neurological: deferred - Constitutional Vitals: Vital Signs Temp Pulse Resp BP Pulse Ox 97.4 F L 119 H 20 117/65 90 03/22/20 10:07 03/22/20 10:07 03/22/20 05:00 03/22/20 10:07 03/22/20 05:00 Temperature -Last 24 Hours Temperature 97.4 F Temperature 95.5 F Temperature 96.2 F Temperature 98.7 F Temperature 98.2 F - Labs CBC & Chem 7: 03/21/20 05:27 03/21/20 05:27
[2020-03-22] MEDS: LITHIUM CARBONATE 150 MG CAP PO SCH ×2 (15:13→22:58)
--- NOTE | 2020-03-22 15:53 | Progress Note ---
Subjective Date of service: 03/22/20 Principal diagnosis: COVID/COPD Interval history: 64 YO Female with COPD, GERD, HTN, HLD, Anxiety, OA, Asthma Mild Intermittent, presents to ED for evaluation. Patient states that she has "not been feeling well" over the past 5 days with persistently worsening symptoms over the same timeframe. Patient states that she has experienced subjective fever, fatigue, muscle aches, generalized weakness, malaise, dry cough, decreased exercise tolerance, loss of sense of smell, loss of sense of taste, shortness of breath, nausea, multiple loose stools, and diminished oral intake. PT transported to [facility] via private vehicle for further care and evaluation of the aforementioned symptoms. The patient was seen and evaluated in the emergency department. All lab and imaging studies reviewed. The patient was found to be tachypneic with respiratory rate in the 30s as well as tachycardic with a pulse rate of 121, and a temperature of 101.9 F. Patient also found to have a pulse oximetry of 86% with exertion while on room air which is consistent with acute hypoxemic respiratory failure. The patient was also found to have a chest x-ray with bilateral pneumonia as well as as well as sepsis. Patient admitted to medical floor and initiated sepsis protocol. Patient also initiated on coronavirus protocol. Patient denies chills, chest pain, palpitations, productive cough, skin rash, recent ill contacts, or known exposure to COVID-19. Prior admission on 01/07/2020 reviewed. All medication listed at time of admission has been reconciled. Advanced care planning conducted in ED. Interval history: 64 YO Female HD #2 with acute hypoxemic respiratory failure, bilateral pneumonia, sepsis, Covid PCR pending, COPD, GERD, HTN, HLD, Anxiety, OA, Asthma Mild Intermittent. Patient resting comfortably in bed. Patient acknowledges improvement in shortness of breath. Patient denies pain. Day 3 03/15/2020\\ Patient on high flow oxygen Continue IV Decadron and remdesivir Day #4 03/16/2020 Patient on high flow oxygen Continue IV Decadron and IV remdesivir Day#5 03/17/2020 Continue IV Decadron and IV remdesivir Patient on 10 L nasal cannula oxygen Day #6 03/18/2020 Patient on 10 L nasal cannula oxygen 03/19/2020 Day #7 Patient on high flow oxygen Day # 8 03/20/20 Patient on high flow oxygen 03/21/20 On High flow oxygen Objective - Constitutional Vitals: Vital Signs - 12hr 03/22/20 03/22/20 03/22/20 05:00 08:00 10:07 Temperature 95.5 F L 97.4 F L Pulse Rate 134 H 119 H Respiratory 20 Rate Blood Pressure 117/65 Blood Pressure 124/71 [Right] O2 Sat by Pulse 90 98 Oximetry 03/22/20 12:07 Temperature 97.9 F Pulse Rate 110 H Respiratory 20 Rate Blood Pressure 124/50 Blood Pressure [Right] O2 Sat by Pulse 93 Oximetry - Labs CBC & Chem 7: 03/21/20 05:27 03/21/20 05:27 HEART Score - HEART Score Troponin: Troponin T < 0.010 ng/mL (0.00-0.029) 03/13/20 16:24
--- NOTE | 2020-03-22 15:58 | Progress Note ---
Assessment and Plan Assessment and Plan - Patient Problems (1) Sepsis Current Visit: Yes Status: Acute Plan to address problem: Continue IV antibiotics (2) Acute hypoxemic respiratory failure Current Visit: Yes Status: Acute Plan to address problem: Supplemental oxygen, nebulizer therapy, pulse oximetry, prone position while in bed, pulmonary toilet. On high flow oxygen Patient on 40 L (3) Pneumonia Current Visit: Yes Status: Acute Qualifiers: Laterality: bilateral Plan to address problem: Pneumonia protocol: Chest x-ray, CBC, CMP, nebulizer therapy, pulse oximetry, IV antibiotic therapy, blood culture, pulmonary toilet. (4) COVID-19 virus infection Current Visit: Yes Status: Acute Plan to address problem: Coronavirus positive Continue dexamethasone 6 mg IV/p.o. daily for 10 days Continue remdesivir total 5 days Continue cefepime every 12 hours Check MRSA PCR pending Monitor liver function test on remdesivir Sinus Covid 2 IgG is positive patient is not a candidate for Covid convalescent plasma Patient is not a candidate for Covid positive convalescent plasma Patient on 40 L high flow oxygen Weaning in progress Therapy (5) COPD (chronic obstructive pulmonary disease) Current Visit: Yes Status: Acute Qualifiers: Chronic bronchitis type: unspecified Plan to address problem: IV steroid therapy, supportive care, supplemental oxygen, IV antibiotic therapy. (6) GERD (gastroesophageal reflux disease) Current Visit: Yes Status: Acute Qualifiers: Esophagitis presence: without esophagitis Qualified Code(s): K21.9 - Gastro-esophageal reflux disease without esophagitis Plan to address problem: PPI therapy, supportive care (7) Hypertension Current Visit: Yes Status: Acute Qualifiers: Hypertension type: essential hypertension Qualified Code(s): I10 - Essential (primary) hypertension Plan to address problem: Monitor blood pressure every shift, continue medical management. (8) Hyperlipidemia Current Visit: Yes Status: Acute Qualifiers: Hyperlipidemia type: mixed hyperlipidemia Qualified Code(s): E78.2 - Mixed hyperlipidemia Plan to address problem: Lipid panel, statin therapy, balanced diet, low-cholesterol diet. (9) DVT prophylaxis Current Visit: Yes Status: Acute Plan to address problem: SCD to bilateral lower extremities while in bed, prophylactic anticoagulation (10) hypokalemia Supplemented Subjective Date of service: 03/22/20 Principal diagnosis: COVID/COPD Interval history: 64 YO Female with COPD, GERD, HTN, HLD, Anxiety, OA, Asthma Mild Intermittent, presents to ED for evaluation. Patient states that she has "not been feeling well" over the past 5 days with persistently worsening symptoms over the same timeframe. Patient states that she has experienced subjective fever, fatigue, muscle aches, generalized weakness, malaise, dry cough, decreased exercise tolerance, loss of sense of smell, loss of sense of taste, shortness of breath, nausea, multiple loose stools, and diminished oral intake. PT transported to [facility] via private vehicle for further care and evaluation of the aforementioned symptoms. The patient was seen and evaluated in the emergency department. All lab and imaging studies reviewed. The patient was found to be tachypneic with respiratory rate in the 30s as well as tachycardic with a pulse rate of 121, and a temperature of 101.9 F. Patient also found to have a pulse oximetry of 86% with exertion while on room air which is consistent with acute hypoxemic respiratory failure. The patient was also found to have a chest x-ray with bilateral pneumonia as well as as well as sepsis. Patient admitted to medical floor and initiated sepsis protocol. Patient also initiated on coronavirus protocol. Patient denies chills, chest pain, palpitations, productive cough, skin rash, recent ill contacts, or known exposure to COVID-19. Prior admission on 01/07/2020 reviewed. All medication listed at time of admission has been reconciled. Advanced care planning conducted in ED. Interval history: 64 YO Female HD #2 with acute hypoxemic respiratory failure, bilateral pneumonia, sepsis, Covid PCR pending, COPD, GERD, HTN, HLD, Anxiety, OA, Asthma Mild Intermittent. Patient resting comfortably in bed. Patient acknowledges improvement in shortness of breath. Patient denies pain. Day 3 03/15/2020\\ Patient on high flow oxygen Continue IV Decadron and remdesivir Day #4 03/16/2020 Patient on high flow oxygen Continue IV Decadron and IV remdesivir Day#5 03/17/2020 Continue IV Decadron and IV remdesivir Patient on 10 L nasal cannula oxygen Day #6 03/18/2020 Patient on 10 L nasal cannula oxygen 03/19/2020 Day #7 Patient on high flow oxygen Day # 8 03/20/20 Patient on high flow oxygen 03/21/20 On High flow oxygen\\ 03/22/2020 Patient on high flow oxygen from 40 L Patient does not keep her oxygen consistently as the nursing staff and respiratory therapist to decrease oxygen levels And see the results MRI Objective - Constitutional Vitals: Vital Signs - 12hr 03/22/20 03/22/20 03/22/20 05:00 08:00 10:07 Temperature 95.5 F L 97.4 F L Pulse Rate 134 H 119 H Respiratory 20 Rate Blood Pressure 117/65 Blood Pressure 124/71 [Right] O2 Sat by Pulse 90 98 Oximetry 03/22/20 12:07 Temperature 97.9 F Pulse Rate 110 H Respiratory 20 Rate Blood Pressure 124/50 Blood Pressure [Right] O2 Sat by Pulse 93 Oximetry General appearance: Present: mild distress, well-nourished - EENT Eyes: PERRL, EOM intact ENT: hearing intact, clear oral mucosa Ears: bilateral: normal - Neck Neck: supple, normal ROM - Respiratory Respiratory effort: normal Respiratory: bilateral: CTA - Breasts Breasts: normal - Cardiovascular Heart rate: 78 Rhythm: regular Heart Sounds: Present: S1 & S2. Absent: gallop, rub Extremities: pulses intact, No edema, normal color, Full ROM - Gastrointestinal General gastrointestinal: Present: soft, non-tender, non-distended, normal bowel sounds - Genitourinary Female genitourinary: normal - Integumentary Integumentary: clear, warm, dry - Musculoskeletal Musculoskeletal: 1, strength equal bilaterally - Neurologic Neurologic: moves all extremities - Psychiatric Psychiatric: memory intact, appropriate mood/affect, intact judgment & insight - Labs CBC & Chem 7: 03/21/20 05:27 03/21/20 05:27 HEART Score - HEART Score Troponin: Troponin T < 0.010 ng/mL (0.00-0.029) 03/13/20 16:24
[2020-03-22] MEDS: traZODone 100 MG TAB PO SCH (22:57)
[2020-03-23] MEDS: BENZONATATE 100 MG CAP PO SCH ×3 (05:28→22:27)
[2020-03-23] MEDS: ACETAMINOPHEN 325 MG TAB PO PRN ×2 (08:14→18:40)
[2020-03-23] MEDS: OXYBUTYNIN 5 MG TAB PO SCH ×3 (08:15→20:53)
[2020-03-23] MEDS: GABAPENTIN 300 MG CAP PO SCH ×3 (08:15→20:53)
[2020-03-23] MEDS: MONTELUKAST 10 MG TAB PO SCH (09:32)
[2020-03-23] MEDS: FAMOTIDINE 10 MG TAB PO SCH ×2 (09:32→22:27)
[2020-03-23] MEDS: ONDANSETRON 4 MG/2 ML INJ IV PRN ×2 (09:32→22:27)
[2020-03-23] MEDS: lamoTRIgine 100 MG TAB PO SCH (09:32)
[2020-03-23] MEDS: DULoxetine 30 MG CAP PO SCH (09:33)
[2020-03-23] MEDS: LITHIUM CARBONATE 150 MG CAP PO SCH ×2 (09:36→22:27)
[2020-03-23] MEDS ORDERED: DEXAMETHASONE 4 MG TAB PO SCH (10:00)
--- NOTE | 2020-03-23 12:41 | Consultation ---
History of Present Illness Consult date: 03/23/20 Reason for consult: hypoxemia History of present illness: 64 y/o female admitted since 03/14 with COVID and acute on chronic respiratory failure (baseline 3 liters NC) at home. Pulmonary consulted yesterday as patient has now been on 40liters and 100% along with NRB on the floor for at least 3 days. Per history has COPD and chronic respiratory failure. No treasury specialist listed. Remainder of the review is positive for patient being dexamethasone. Past History Past Medical History: arthritis, COPD, GERD, hypertension, hyperlipidemia, other (See HPI) Past Surgical History: total knee replacement Social history: single. denies: smoking, alcohol abuse Family history: hypertension Medications and Allergies Allergies Allergy/AdvReac Type Severity Reaction Status Date / Time No Known Allergies Allergy Verified 12/26/18 00:02 Home Medications Medication Instructions Recorded Confirmed Last Taken Type raNITIdine HCl [Zantac] 150 mg PO BID 12/24/18 03/14/20 12/25/18 08:00 History Ergocalciferol (Vitamin D2) 50,000 unit PO QWEEK 05/27/19 03/14/20 03/06/20 History [Drisdol] Gabapentin 300 mg PO TID 05/27/19 03/14/20 Unknown History Montelukast Sodium 10 mg PO DAILY 05/27/19 03/14/20 Unknown History hydrOXYzine PAMOATE [Vistaril] 50 mg PO QID 05/27/19 03/14/20 Unknown History Dicyclomine [Bentyl] 20 mg PO Q6H PRN #30 tablet 09/13/19 03/14/20 Unknown Rx Diphenoxylate/Atropine [Lomotil] 1 - 2 tab PO Q4H PRN #15 tablet 09/13/19 03/14/20 Unknown Rx Ondansetron [Zofran ODT TAB] 4 mg PO Q6HR PRN #20 tab.rapdis 09/13/19 03/14/20 Unknown Rx Acetaminophen [Acetaminophen TAB] 650 mg PO Q4H PRN tablet 01/09/20 03/14/20 Unknown Rx guaiFENesin DM [Guaifenesin Dm 10 ml PO Q4H PRN #1 oral.liqd 01/09/20 03/14/20 U nknown Rx Syrup] Albuterol Mdi (or & Nicu Only) 1 puff IH Q4-6H PRN #1 inha 01/29/20 03/14/20 Unknown Rx [ProAir HFA Inhaler] Benzonatate [Tessalon Perles] 100 mg PO Q8HR #20 capsule 01/29/20 03/14/20 Unknown Rx predniSONE [Deltasone] 20 mg PO QDAY #5 tab 01/29/20 03/14/20 Unknown Rx Amitriptyline [Elavil] 10 mg PO QHS 03/14/20 03/14/20 Unknown History DULoxetine [Cymbalta] 50 mg PO QDAY 03/14/20 03/14/20 Unknown History Active Meds: Active Medications Acetaminophen (Acetaminophen 325 Mg Tab) 650 mg PO Q4H PRN PRN Reason: Pain MILD(1-3)/Fever >100.5/CARIAS Last Admin: 03/23/20 08:14 Dose: 650 mg Documented by: Acetaminophen/Butalbital/Caffeine (Butalb/Acetaminophen/Caffeine Tab) 1 tab PO Q4H PRN PRN Reason: Headache Last Admin: 03/22/20 04:54 Dose: 1 tab Documented by: Albuterol (Albuterol 2.5 Mg/3 Ml Nebu) 2.5 mg IH Q4HRT PRN PRN Reason: Shortness Of Breath Benzonatate (Benzonatate 100 Mg Cap) 100 mg PO Q8HR [facility] Last Admin: 03/23/20 05:28 Dose: 100 mg Documented by: Duloxetine HCl (Duloxetine 30 Mg Cap) 60 mg PO QDAY [facility] Last Admin: 03/23/20 09:33 Dose: 60 mg Documented by: Enoxaparin Sodium (Enoxaparin 40 Mg/0.4 Ml Inj) 40 mg SUB-Q QDAY@2200 [facility]; Protocol Ergocalciferol (Ergocalciferol (Vit D2) 50,000 Unit Cap) 50,000 unit PO [place] [facility] Last Admin: 03/20/20 10:41 Dose: 50,000 unit Documented by: Famotidine (Famotidine 10 Mg Tab) 10 mg PO BID [facility] Last Admin: 03/23/20 09:32 Dose: 10 mg Documented by: Furosemide (Furosemide 40 Mg/4 Ml Inj) 40 mg IV ONCE ONE Stop: 03/23/20 12:35 Gabapentin (Gabapentin 300 Mg Cap) 300 mg PO TID [facility] Last Admin: 03/23/20 08:15 Dose: 300 mg Documented by: Guaifenesin (Guaifenesin Dm 200/20 Mg Oral Liqd 10 Ml) 10 ml PO Q4H PRN PRN Reason: Cough Hydroxyzine Pamoate (Hydroxyzine Pamoate 50 Mg Cap) 50 mg PO QID [facility] Last Admin: 03/23/20 09:33 Dose: 50 mg Documented by: Lamotrigine (Lamotrigine 100 Mg Tab) 100 mg PO QDAY [facility] Last Admin: 03/23/20 09:32 Dose: 100 mg Documented by: [place] Carbonate ([place] Carbonate 150 Mg Cap) 150 mg PO BID [facility] Last Admin: 03/23/20 09:36 Dose: 150 mg Documented by: Methylprednisolone Sodium Succinate (Methylprednisolone Sod Succinate 125 Mg/2 Ml Inj) 60 mg IV Q6HR [facility] Montelukast Sodium (Montelukast 10 Mg Tab) 10 mg PO DAILY [facility] Last Admin: 03/23/20 09:32 Dose: 10 mg Documented by: Ondansetron HCl (Ondansetron 4 Mg/2 Ml Inj) 4 mg IV Q8H PRN PRN Reason: Nausea And Vomiting Last Admin: 03/23/20 09:32 Dose: 4 mg Documented by: Oxybutynin Chloride (Oxybutynin 5 Mg Tab) 5 mg PO TID [facility] Last Admin: 03/23/20 08:15 Dose: 5 mg Documented by: Sodium Chloride (Sodium Chloride 0.9% 10 Ml Flush Syringe) 10 ml IV BID [facility] Last Admin: 03/23/20 09:33 Dose: 10 ml Documented by: Sodium Chloride (Sodium Chloride 0.9% 10 Ml Flush Syringe) 10 ml IV PRN PRN PRN Reason: LINE FLUSH Trazodone HCl (Trazodone 100 Mg Tab) 100 mg PO QHS [facility] Last Admin: 03/22/20 22:57 Dose: 100 mg Documented by: Physical Examination Vital signs: Vital Signs Temp Pulse Resp BP Pulse Ox 97.8 F 121 H 22 129/71 86 03/13/20 15:14 03/13/20 15:14 03/13/20 15:14 03/13/20 15:14 03/13/20 15:14 Results - Laboratory Findings CBC and BMP: 03/21/20 05:27 03/21/20 05:27 PT/INR, D-dimer PT 11.8 Sec. (12.2-14.9) L 03/13/20 16:24 INR 0.89 (0.87-1.13) 03/13/20 16:24 D-Dimer 274.02 ng/mlDDU (0-234) H 03/22/20 15:45 Abnormal lab findings: Abnormal Labs 03/13/20 03/13/20 03/13/20 16:24 16:24 16:24 WBC MCH RDW 16.8 H Plt Count Lymph % (Auto) 8.5 L [place] % (Auto) Lymph # (Auto) 0.6 L [place] # (Auto) Seg Neutrophils % 84.9 H Seg Neutrophils # PT 11.8 L D-Dimer 234.66 H Sodium 135 L Potassium 3.1 L Chloride Carbon Dioxide Glucose 174 H Lactate Dehydrogenase 277 H C-Reactive Protein 8.00 H Albumin 3.7 L Coronavirus (PCR) SARS-CoV-2 IgG Ab 03/13/20 03/14/20 03/14/20 16:24 08:02 08:02 WBC 3.9 L MCH RDW 16.3 H Plt Count Lymph % (Auto) [place] % (Auto) 9.5 H Lymph # (Auto) 0.7 L [place] # (Auto) Seg Neutrophils % 72.9 H Seg Neutrophils # PT D-Dimer Sodium Potassium Chloride 107.4 H Carbon Dioxide Glucose 174 H 142 H Lactate Dehydrogenase 267 H C-Reactive Protein 8.10 H Albumin Coronavirus (PCR) SARS-CoV-2 IgG Ab 03/14/20 03/14/20 03/14/20 16:58 16:58 Unknown WBC MCH RDW Plt Count Lymph % (Auto) [place] % (Auto) Lymph # (Auto) [place] # (Auto) Seg Neutrophils % Seg Neutrophils # PT D-Dimer Sodium Potassium Chloride Carbon Dioxide Glucose Lactate Dehydrogenase 277 H C-Reactive Protein 2.60 H Albumin Coronavirus (PCR) Positive A SARS-CoV-2 IgG Ab Reactive A 03/16/20 03/16/20 03/16/20 05:18 05:18 10:34 WBC MCH RDW 16.4 H Plt Count Lymph % (Auto) [place] % (Auto) 10.0 H Lymph # (Auto) [place] # (Auto) Seg Neutrophils % Seg Neutrophils # PT D-Dimer 278.32 H Sodium Potassium 3.1 L Chloride Carbon Dioxide Glucose Lactate Dehydrogenase C-Reactive Protein Albumin 3.4 L Coronavirus (PCR) SARS-CoV-2 IgG Ab 03/16/20 03/17/20 03/18/20 10:34 21:24 05:58 WBC 14.8 H MCH RDW 15.8 H Plt Count Lymph % (Auto) 11.5 L [place] % (Auto) Lymph # (Auto) [place] # (Auto) 1.0 H Seg Neutrophils % 81.3 H Seg Neutrophils # 12.0 H PT D-Dimer Sodium Potassium Chloride Carbon Dioxide Glucose 182 H Lactate Dehydrogenase 268 H 268 H C-Reactive Protein 2.10 H 4.90 H Albumin Coronavirus (PCR) SARS-CoV-2 IgG Ab 03/18/20 03/21/20 03/21/20 05:58 05:27 05:27 WBC 14.1 H MCH 27 L RDW 16.1 H Plt Count 513 H Lymph % (Auto) 11.5 L [place] % (Auto) 7.9 H Lymph # (Auto) [place] # (Auto) 1.1 H Seg Neutrophils % 78.4 H Seg Neutrophils # 11.1 H PT D-Dimer Sodium Potassium 2.9 L* Chloride Carbon Dioxide 18 L Glucose Lactate Dehydrogenase C-Reactive Protein Albumin 3.6 L 3.6 L Coronavirus (PCR) SARS-CoV-2 IgG Ab 03/22/20 03/22/20 03/22/20 15:45 15:45 15:45 WBC MCH RDW Plt Count Lymph % (Auto) [place] % (Auto) Lymph # (Auto) [place] # (Auto) Seg Neutrophils % Seg Neutrophils # PT D-Dimer 274.02 H Sodium Potassium Chloride Carbon Dioxide Glucose Lactate Dehydrogenase 259 H C-Reactive Protein 7.60 H Albumin Coronavirus (PCR) SARS-CoV-2 IgG Ab - Diagnostic Findings Chest x-ray: other (no recent images done) Assessment and Plan 64 y/o female with acute on chronic respiratory failure secondary COVID 19 pneumonia. 1. Changed steroids to solumedrol 60q6 given her history of COPD 2. No nebulizer given her diagnosis but if puffers are available at least albuterol q4 hours scheduled or scheduled combivent every 4. 3. Proning as tolerated during the day and sleep prone at night 4. Will repeat CXR 5. Lasix 1x dose today 6. Consider checking BNP
[2020-03-23] MEDS ORDERED: FUROSEMIDE 40 MG/4 ML INJ IV NR (13:00)
[2020-03-23] MEDS: methylPREDNISolone Sod Succinate 125 MG/2 ML INJ IV SCH ×2 (13:39→17:44)
--- NOTE | 2020-03-23 14:00 | Progress Note ---
Assessment and Plan Cultures: Blood culture no growth SARS CoV2 PCR positive SARS Covid 2 IgG positive Assessment: 64 years old female with history of COPD on 3 L home O2, GERD, hypertension, hyperlipidemia, anxiety, asthma, admitted on 03/13/2020 secondary to 5-day history of generalized malaise, weakness, fever, dry cough, shortness of breath and dyspnea on exertion: #Severe COVID pneumonia/Bacterial pneumonia: Chest x-ray showed bilateral patchy infiltrate left greater than right. Ferritin was normal. D-dimer mildly elevated. Procalcitonin elevated likely a bacterial component. Completed cefepime. Completed remdesivir and decadron. SARS CoV-2 IgG is positive, patient is not a candidate for COVID convalescent plasma #Acute on chronic hypoxemic respiratory failure: Patient is on 3 L at home, cur rently on HFNC. #COPD with exacerbation #Diarrhea: Likely secondary to COVID-19. Recommendations: -Completed remdesivir and decadron -Continue steroids, now on solumedrol per pulmonary Angel Li MD, FACP [facility] O: [phone] F: [phone] Subjective Date of service: 03/23/20 Principal diagnosis: COVID/COPD Interval history: Afebrile. Remains on high flow. Objective - Exam Narrative Exam: Physical Exam (reviewed in chart to minimize risk of transmission) Constitutional: deferred Head, Ears, Nose: deferred Eyes: deferred Neck: deferred Oral: deferred Cardiovascular: deferred Respiratory: deferred GI: deferred Musculoskeletal: deferred Skin: deferred Hem/Lymphatic: deferred Psych: deferred Neurological: deferred - Constitutional Vitals: Vital Signs Temp Pulse Resp BP Pulse Ox 98.1 F 115 H 22 122/60 92 03/23/20 11:31 03/23/20 11:31 03/23/20 11:31 03/23/20 11:31 03/23/20 11:31 Temperature -Last 24 Hours Temperature 98.1 F Temperature 97.9 F Temperature 97.6 F Temperature 97.8 F - Labs CBC & Chem 7: 03/21/20 05:27 03/21/20 05:27 Labs: Abnormal lab results 03/22/20 03/22/20 03/22/20 Range/Units 15:45 15:45 15:45 D-Dimer 274.02 H (0-234) ng/mlDDU Lactate Dehydrogenase 259 H (91-180) units/L C-Reactive Protein 7.60 H (0.00-1.30) mg/dL
--- NOTE | 2020-03-23 18:22 | Progress Note ---
Assessment and Plan Assessment and Plan - Patient Problems (1) Sepsis Current Visit: Yes Status: Acute Plan to address problem: Continue IV antibiotics (2) Acute hypoxemic respiratory failure Current Visit: Yes Status: Acute Plan to address problem: Supplemental oxygen, nebulizer therapy, pulse oximetry, prone position while in bed, pulmonary toilet. On high flow oxygen Patient on 40 L (3) Pneumonia Current Visit: Yes Status: Acute Qualifiers: Laterality: bilateral Plan to address problem: Pneumonia protocol: Chest x-ray, CBC, CMP, nebulizer therapy, pulse oximetry, IV antibiotic therapy, blood culture, pulmonary toilet. (4) COVID-19 virus infection Current Visit: Yes Status: Acute Plan to address problem: Coronavirus positive Continue dexamethasone 6 mg IV/p.o. daily for 10 days Continue remdesivir total 5 days Continue cefepime every 12 hours Check MRSA PCR pending Monitor liver function test on remdesivir Sinus Covid 2 IgG is positive patient is not a candidate for Covid convalescent plasma Patient is not a candidate for Covid positive convalescent plasma Patient on 40 L high flow oxygen Weaning in progress Therapy (5) COPD (chronic obstructive pulmonary disease) Current Visit: Yes Status: Acute Qualifiers: Chronic bronchitis type: unspecified Plan to address problem: IV steroid therapy, supportive care, supplemental oxygen, IV antibiotic therapy. (6) GERD (gastroesophageal reflux disease) Current Visit: Yes Status: Acute Qualifiers: Esophagitis presence: without esophagitis Qualified Code(s): K21.9 - Gastro-esophageal reflux disease without esophagitis Plan to address problem: PPI therapy, supportive care (7) Hypertension Current Visit: Yes Status: Acute Qualifiers: Hypertension type: essential hypertension Qualified Code(s): I10 - Essential (primary) hypertension Plan to address problem: Monitor blood pressure every shift, continue medical management. (8) Hyperlipidemia Current Visit: Yes Status: Acute Qualifiers: Hyperlipidemia type: mixed hyperlipidemia Qualified Code(s): E78.2 - Mixed hyperlipidemia Plan to address problem: Lipid panel, statin therapy, balanced diet, low-cholesterol diet. (9) DVT prophylaxis Current Visit: Yes Status: Acute Plan to address problem: SCD to bilateral lower extremities while in bed, prophylactic anticoagulation (10) hypokalemia Supplemented Subjective Date of service: 03/23/20 Principal diagnosis: COVID/COPD Interval history: 64 YO Female with COPD, GERD, HTN, HLD, Anxiety, OA, Asthma Mild Intermittent, presents to ED for evaluation. Patient states that she has "not been feeling well" over the past 5 days with persistently worsening symptoms over the same timeframe. Patient states that she has experienced subjective fever, fatigue, muscle aches, generalized weakness, malaise, dry cough, decreased exercise tolerance, loss of sense of smell, loss of sense of taste, shortness of breath, nausea, multiple loose stools, and diminished oral intake. PT transported to [facility] via private vehicle for further care and evaluation of the aforementioned symptoms. The patient was seen and evaluated in the emergency department. All lab and imaging studies reviewed. The patient was found to be tachypneic with respiratory rate in the 30s as well as tachycardic with a pulse rate of 121, and a temperature of 101.9 F. Patient also found to have a pulse oximetry of 86% with exertion while on room air which is consistent with acute hypoxemic respiratory failure. The patient was also found to have a chest x-ray with bilateral pneumonia as well as as well as sepsis. Patient admitted to medical floor and initiated sepsis protocol. Patient also initiated on coronavirus protocol. Patient denies chills, chest pain, palpitations, productive cough, skin rash, recent ill contacts, or known exposure to COVID-19. Prior admission on 01/07/2020 reviewed. All medication listed at time of admission has been reconciled. Advanced care planning conducted in ED. Interval history: 64 YO Female HD #2 with acute hypoxemic respiratory failure, bilateral pneumonia, sepsis, Covid PCR pending, COPD, GERD, HTN, HLD, Anxiety, OA, Asthma Mild Intermittent. Patient resting comfortably in bed. Patient acknowledges improvement in shortness of breath. Patient denies pain. Day 3 03/15/2020\\ Patient on high flow oxygen Continue IV Decadron and remdesivir Day #4 03/16/2020 Patient on high flow oxygen Continue IV Decadron and IV remdesivir Day#5 03/17/2020 Continue IV Decadron and IV remdesivir Patient on 10 L nasal cannula oxygen Day #6 03/18/2020 Patient on 10 L nasal cannula oxygen 03/19/2020 Day #7 Patient on high flow oxygen Day # 8 03/20/20 Patient on high flow oxygen 03/21/20 On High flow oxygen\\ 03/22/2020 Patient on high flow oxygen from 40 L Patient does not keep her oxygen consistently as the nursing staff and respiratory therapist to decrease oxygen levels 03/23/2020 Patient still on high flow oxygen Alert and oriented and cheerful Objective - Constitutional Vitals: Vital Signs - 12hr 03/23/20 03/23/20 08:00 11:31 Temperature 98.1 F Pulse Rate 115 H Respiratory 20 22 Rate Blood Pressure 122/60 O2 Sat by Pulse 92 Oximetry General appearance: Present: no acute distress, well-nourished - EENT Eyes: PERRL, EOM intact ENT: hearing intact, clear oral mucosa Ears: bilateral: normal - Neck Neck: supple, normal ROM - Respiratory Respiratory effort: normal Respiratory: bilateral: CTA - Breasts Breasts: normal - Cardiovascular Heart rate: 78 Rhythm: regular Heart Sounds: Present: S1 & S2. Absent: gallop, rub Extremities: pulses intact, No edema, normal color, Full ROM - Gastrointestinal General gastrointestinal: Present: soft, non-tender, non-distended, normal bowel sounds - Genitourinary Female genitourinary: normal - Integumentary Integumentary: clear, warm, dry - Musculoskeletal Musculoskeletal: 1, strength equal bilaterally - Neurologic Neurologic: moves all extremities - Psychiatric Psychiatric: memory intact, appropriate mood/affect, intact judgment & insight - Labs CBC & Chem 7: 03/21/20 05:27 03/21/20 05:27 HEART Score - HEART Score Troponin: Troponin T < 0.010 ng/mL (0.00-0.029) 03/13/20 16:24
[2020-03-23] MEDS: traZODone 100 MG TAB PO SCH (22:27)
[2020-03-23] MEDS: ENOXAPARIN 40 MG/0.4 ML INJ SUB-Q SCH (22:27)
[2020-03-24] MEDS: methylPREDNISolone Sod Succinate 125 MG/2 ML INJ IV SCH ×5 (01:29→23:20)
[2020-03-24] MEDS: BENZONATATE 100 MG CAP PO SCH ×3 (06:49→21:06)
[2020-03-24] MEDS: ONDANSETRON 4 MG/2 ML INJ IV PRN ×3 (06:49→23:32)
[2020-03-24] MEDS: OXYBUTYNIN 5 MG TAB PO SCH ×3 (09:43→21:11)
[2020-03-24] MEDS: DULoxetine 30 MG CAP PO SCH (09:43)
[2020-03-24] MEDS: LITHIUM CARBONATE 150 MG CAP PO SCH ×2 (09:43→21:07)
[2020-03-24] MEDS: BUTALB/ACETAMINOPHEN/CAFFEINE TAB PO PRN ×2 (09:43→21:06)
[2020-03-24] MEDS: GABAPENTIN 300 MG CAP PO SCH ×3 (09:43→21:06)
[2020-03-24] MEDS: lamoTRIgine 100 MG TAB PO SCH (09:44)
[2020-03-24] MEDS: MONTELUKAST 10 MG TAB PO SCH (09:44)
[2020-03-24] MEDS: FAMOTIDINE 10 MG TAB PO SCH ×2 (09:44→21:06)
--- NOTE | 2020-03-24 11:10 | Progress Note ---
Assessment and Plan 64 y/o female with acute on chronic respiratory failure secondary COVID 19 pneumonia. 1. Changed steroids to solumedrol 60q6 given her history of COPD, will continue this for now. 2. No nebulizer given her diagnosis but if puffers are available at least albuterol q4 hours scheduled or scheduled combivent every 4. 3. Proning as tolerated during the day and sleep prone at night 4. Check Chemistry. If renal function normal and BP will allow, please given lasix tomorrow. 5. Consider checking BNP Subjective Date of service: 03/24/20 Principal diagnosis: COVID/COPD Interval history: Patient still on HFNC and NRB. Sats in the low 90's. No step down beds available currently secondary to staffing. I/O not accurate. Objective Vital Signs - 12hr 03/23/20 03/24/20 03/24/20 23:11 00:12 01:28 Temperature 98.3 F Pulse Rate 108 H 109 H Respiratory 26 H 20 Rate Blood Pressure 127/68 O2 Sat by Pulse 90 92 92 Oximetry 03/24/20 03/24/20 03/24/20 04:53 06:15 08:27 Temperature 98.3 F Pulse Rate 97 H 103 H Respiratory 24 20 Rate Blood Pressure 145/79 O2 Sat by Pulse 91 93 91 Oximetry CBC and BMP: 03/21/20 05:27 03/21/20 05:27 ABG, PT/INR, D-dimer: PT/INR, D-dimer PT 11.8 Sec. (12.2-14.9) L 03/13/20 16:24 INR 0.89 (0.87-1.13) 03/13/20 16:24 D-Dimer 274.02 ng/mlDDU (0-234) H 03/22/20 15:45 Abnormal lab findings: Abnormal Labs 03/13/20 03/13/20 03/13/20 16:24 16:24 16:24 WBC MCH RDW 16.8 H Plt Count Lymph % (Auto) 8.5 L Grainger % (Auto) Lymph # (Auto) 0.6 L Grainger # (Auto) Seg Neutrophils % 84.9 H Seg Neutrophils # PT 11.8 L D-Dimer 234.66 H Sodium 135 L Potassium 3.1 L Chloride Carbon Dioxide Glucose 174 H Lactate Dehydrogenase 277 H C-Reactive Protein 8.00 H Albumin 3.7 L Coronavirus (PCR) SARS-CoV-2 IgG Ab 03/13/20 03/14/20 03/14/20 16:24 08:02 08:02 WBC 3.9 L MCH RDW 16.3 H Plt Count Lymph % (Auto) Grainger % (Auto) 9.5 H Lymph # (Auto) 0.7 L Grainger # (Auto) Seg Neutrophils % 72.9 H Seg Neutrophils # PT D-Dimer Sodium Potassium Chloride 107.4 H Carbon Dioxide Glucose 174 H 142 H Lactate Dehydrogenase 267 H C-Reactive Protein 8.10 H Albumin Coronavirus (PCR) SARS-CoV-2 IgG Ab 03/14/20 03/14/20 03/14/20 16:58 16:58 Unknown WBC MCH RDW Plt Count Lymph % (Auto) Grainger % (Auto) Lymph # (Auto) Grainger # (Auto) Seg Neutrophils % Seg Neutrophils # PT D-Dimer Sodium Potassium Chloride Carbon Dioxide Glucose Lactate Dehydrogenase 277 H C-Reactive Protein 2.60 H Albumin Coronavirus (PCR) Positive A SARS-CoV-2 IgG Ab Reactive A 03/16/20 03/16/20 03/16/20 05:18 05:18 10:34 WBC MCH RDW 16.4 H Plt Count Lymph % (Auto) Grainger % (Auto) 10.0 H Lymph # (Auto) Grainger # (Auto) Seg Neutrophils % Seg Neutrophils # PT D-Dimer 278.32 H Sodium Potassium 3.1 L Chloride Carbon Dioxide Glucose Lactate Dehydrogenase C-Reactive Protein Albumin 3.4 L Coronavirus (PCR) SARS-CoV-2 IgG Ab 03/16/20 03/17/20 03/18/20 10:34 21:24 05:58 WBC 14.8 H MCH RDW 15.8 H Plt Count Lymph % (Auto) 11.5 L Grainger % (Auto) Lymph # (Auto) Grainger # (Auto) 1.0 H Seg Neutrophils % 81.3 H Seg Neutrophils # 12.0 H PT D-Dimer Sodium Potassium Chloride Carbon Dioxide Glucose 182 H Lactate Dehydrogenase 268 H 268 H C-Reactive Protein 2.10 H 4.90 H Albumin Coronavirus (PCR) SARS-CoV-2 IgG Ab 03/18/20 03/21/20 03/21/20 05:58 05:27 05:27 WBC 14.1 H MCH 27 L RDW 16.1 H Plt Count 513 H Lymph % (Auto) 11.5 L Grainger % (Auto) 7.9 H Lymph # (Auto) Grainger # (Auto) 1.1 H Seg Neutrophils % 78.4 H Seg Neutrophils # 11.1 H PT D-Dimer Sodium Potassium 2.9 L* Chloride Carbon Dioxide 18 L Glucose Lactate Dehydrogenase C-Reactive Protein Albumin 3.6 L 3.6 L Coronavirus (PCR) SARS-CoV-2 IgG Ab 03/22/20 03/22/20 03/22/20 15:45 15:45 15:45 WBC MCH RDW Plt Count Lymph % (Auto) Grainger % (Auto) Lymph # (Auto) Grainger # (Auto) Seg Neutrophils % Seg Neutrophils # PT D-Dimer 274.02 H Sodium Potassium Chloride Carbon Dioxide Glucose Lactate Dehydrogenase 259 H C-Reactive Protein 7.60 H Albumin Coronavirus (PCR) SARS-CoV-2 IgG Ab
--- NOTE | 2020-03-24 14:25 | Progress Note ---
Assessment and Plan Cultures: Blood culture no growth SARS CoV2 PCR positive SARS Covid 2 IgG positive Assessment: 64 years old female with history of COPD on 3 L home O2, GERD, hypertension, hyperlipidemia, anxiety, asthma, admitted on 03/13/2020 secondary to 5-day history of generalized malaise, weakness, fever, dry cough, shortness of breath and dyspnea on exertion: #Severe COVID pneumonia/Bacterial pneumonia: Chest x-ray showed bilateral patchy infiltrate left greater than right. Ferritin was normal. D-dimer mildly elevated. Procalcitonin elevated likely a bacterial component. Completed cefepime. Completed remdesivir and decadron. SARS CoV-2 IgG is positive, patient is not a candidate for COVID convalescent plasma #Acute on chronic hypoxemic respiratory failure: Patient is on 3 L at home, cur rently on HFNC. #COPD with exacerbation #Diarrhea: Likely secondary to COVID-19. Recommendations: -Completed remdesivir and decadron -Continue steroids, now on solumedrol per pulmonary Angel Li MD, FACP [facility] ([facility]) O: [phone] F: [phone] Subjective Date of service: 03/24/20 Principal diagnosis: COVID/COPD Interval history: Afebrile. Remains on high flow. Objective - Exam Narrative Exam: Physical Exam (reviewed in chart to minimize risk of transmission) Constitutional: deferred Head, Ears, Nose: deferred Eyes: deferred Neck: deferred Oral: deferred Cardiovascular: deferred Respiratory: deferred GI: deferred Musculoskeletal: deferred Skin: deferred Hem/Lymphatic: deferred Psych: deferred Neurological: deferred - Constitutional Vitals: Vital Signs Temp Pulse Resp BP Pulse Ox 98.3 F 103 H 20 145/79 91 03/24/20 04:53 03/24/20 06:15 03/24/20 06:15 03/24/20 04:53 03/24/20 08:27 Temperature -Last 24 Hours Temperature 98.3 F Temperature 98.3 F Temperature 97.9 F - Labs CBC & Chem 7: 03/21/20 05:27 03/21/20 05:27
[2020-03-24] MEDS: traZODone 100 MG TAB PO SCH (21:06)
[2020-03-24] MEDS: ENOXAPARIN 40 MG/0.4 ML INJ SUB-Q SCH (21:06)
[2020-03-25] MEDS: guaiFENesin DM 200/20 MG ORAL LIQD 10 ML PO PRN (02:10)
[2020-03-25] MEDS: BUTALB/ACETAMINOPHEN/CAFFEINE TAB PO PRN ×4 (02:10→20:23)
[2020-03-25] MEDS: BENZONATATE 100 MG CAP PO SCH ×3 (05:06→21:02)
[2020-03-25] MEDS: methylPREDNISolone Sod Succinate 125 MG/2 ML INJ IV SCH ×3 (05:06→17:46)
--- NOTE | 2020-03-25 08:26 | Progress Note ---
Assessment and Plan Assessment and Plan - Patient Problems (1) Sepsis Current Visit: Yes Status: Acute Plan to address problem: Continue IV antibiotics (2) Acute hypoxemic respiratory failure Current Visit: Yes Status: Acute Plan to address problem: Supplemental oxygen, nebulizer therapy, pulse oximetry, prone position while in bed, pulmonary toilet. On high flow oxygen Patient on 40 L Steroids increased by Dr Alva (3) Pneumonia Current Visit: Yes Status: Acute Qualifiers: Laterality: bilateral Plan to address problem: Pneumonia protocol: Chest x-ray, CBC, CMP, nebulizer therapy, pulse oximetry, IV antibiotic therapy, blood culture, pulmonary toilet. (4) COVID-19 virus infection Current Visit: Yes Status: Acute Plan to address problem: Coronavirus positive Continue dexamethasone 6 mg IV/p.o. daily for 10 days Continue remdesivir total 5 days Continue cefepime every 12 hours Check MRSA PCR pending Monitor liver function test on remdesivir Sinus Covid 2 IgG is positive patient is not a candidate for Covid convalescent plasma Patient is not a candidate for Covid positive convalescent plasma Patient on 40 L high flow oxygen Weaning in progress Therapy (5) COPD (chronic obstructive pulmonary disease) Current Visit: Yes Status: Acute Qualifiers: Chronic bronchitis type: unspecified Plan to address problem: IV steroid therapy, supportive care, supplemental oxygen, IV antibiotic therapy. (6) GERD (gastroesophageal reflux disease) Current Visit: Yes Status: Acute Qualifiers: Esophagitis presence: without esophagitis Qualified Code(s): K21.9 - Gastro-esophageal reflux disease without esophagitis Plan to address problem: PPI therapy, supportive care (7) Hypertension Current Visit: Yes Status: Acute Qualifiers: Hypertension type: essential hypertension Qualified Code(s): I10 - Essen tial (primary) hypertension Plan to address problem: Monitor blood pressure every shift, continue medical management. (8) Hyperlipidemia Current Visit: Yes Status: Acute Qualifiers: Hyperlipidemia type: mixed hyperlipidemia Qualified Code(s): E78.2 - Mixed hyperlipidemia Plan to address problem: Lipid panel, statin therapy, balanced diet, low-cholesterol diet. (9) DVT prophylaxis Current Visit: Yes Status: Acute Plan to address problem: SCD to bilateral lower extremities while in bed, prophylactic anticoagulation (10) hypokalemia Supplemented Subjective Date of service: 03/24/20 Principal diagnosis: COVID/COPD Interval history: 64 YO Female with COPD, GERD, HTN, HLD, Anxiety, OA, Asthma Mild Intermittent, presents to ED for evaluation. Patient states that she has "not been feeling well" over the past 5 days with persistently worsening symptoms over the same timeframe. Patient states that she has experienced subjective fever, fatigue, muscle aches, generalized weakness, malaise, dry cough, decreased exercise tolerance, loss of sense of smell, loss of sense of taste, shortness of breath, nausea, multiple loose stools, and diminished oral intake. PT transported to [facility] via private vehicle for further care and evaluation of the aforementioned symptoms. The patient was seen and evaluated in the emergency department. All lab and imaging studies reviewed. The patient was found to be tachypneic with respiratory rate in the 30s as well as tachycardic with a pulse rate of 121, and a temperature of 101.9 F. Patient also found to have a pulse oximetry of 86% with exertion while on room air which is consistent with acute hypoxemic respiratory failure. The patient was also found to have a chest x-ray with bilateral pneumonia as well as as well as sepsis. Patient admitted to medical floor and initiated sepsis protocol. Patient also initiated on coronavirus protocol. Patient denies chills, chest pain, palpitations, productive cough, skin rash, recent ill contacts, or known exposure to COVID-19. Prior admission on 01/07/2020 reviewed. All medication listed at time of admission has been reconciled. Advanced care planning conducted in ED. Interval history: 64 YO Female HD #2 with acute hypoxemic respiratory failure, bilateral pneumonia, sepsis, Covid PCR pending, COPD, GERD, HTN, HLD, Anxiety, OA, Asthma Mild Intermittent. Patient resting comfortably in bed. Patient acknowledges improvement in shortness of breath. Patient denies pain. Day 3 03/15/2020\\ Patient on high flow oxygen Continue IV Decadron and remdesivir Day #4 03/16/2020 Patient on high flow oxygen Continue IV Decadron and IV remdesivir Day#5 03/17/2020 Continue IV Decadron and IV remdesivir Patient on 10 L nasal cannula oxygen Day #6 03/18/2020 Patient on 10 L nasal cannula oxygen 03/19/2020 Day #7 Patient on high flow oxygen Day # 8 03/20/20 Patient on high flow oxygen 12/21/20 On High flow oxygen\\ 03/22/2020 Patient on high flow oxygen from 40 L Patient does not keep her oxygen consistently as the nursing staff and respiratory therapist to decrease oxygen levels 03/23/2020 Patient still on high flow oxygen Alert and oriented and cheerful 03/24/20 Objective - Constitutional Vitals: Vital Signs - 12hr 03/24/20 03/25/20 03/25/20 21:26 02:00 04:35 Temperature 98.4 F 98.6 F Respiratory 36 H 32 H Rate Blood Pressure 139/77 137/83 O2 Sat by Pulse 93 Oximetry General appearance: Present: no acute distress, well-nourished - EENT Eyes: PERRL, EOM intact ENT: hearing intact, clear oral mucosa Ears: bilateral: normal - Neck Neck: supple, normal ROM - Respiratory Respiratory effort: normal Respiratory: bilateral: CTA - Breasts Breasts: normal - Cardiovascular Rhythm: regular Heart Sounds: Present: S1 & S2. Absent: gallop, rub Extremities: pulses intact, No edema, normal color, Full ROM Extremity abnormal: other - Gastrointestinal General gastrointestinal: Present: soft, non-tender, non-distended, normal bowel sounds - Genitourinary Female genitourinary: normal - Integumentary Integumentary: clear, warm, dry - Musculoskeletal Musculoskeletal: 1, strength equal bilaterally - Neurologic Neurologic: moves all extremities - Psychiatric Psychiatric: memory intact, appropriate mood/affect, intact judgment & insight - Labs CBC & Chem 7: 03/21/20 05:27 03/21/20 05:27 HEART Score - HEART Score Troponin: Troponin T < 0.010 ng/mL (0.00-0.029) 03/13/20 16:24
[2020-03-25] MEDS: GABAPENTIN 300 MG CAP PO SCH ×3 (09:11→20:23)
[2020-03-25] MEDS: DULoxetine 30 MG CAP PO SCH (09:11)
[2020-03-25] MEDS: ONDANSETRON 4 MG/2 ML INJ IV PRN ×2 (09:11→18:41)
[2020-03-25] MEDS: FAMOTIDINE 10 MG TAB PO SCH ×2 (09:11→21:01)
[2020-03-25] MEDS: lamoTRIgine 100 MG TAB PO SCH (09:11)
[2020-03-25] MEDS: OXYBUTYNIN 5 MG TAB PO SCH ×3 (09:12→20:23)
[2020-03-25] MEDS: MONTELUKAST 10 MG TAB PO SCH (09:12)
[2020-03-25] MEDS: LITHIUM CARBONATE 150 MG CAP PO SCH ×2 (09:12→21:01)
--- NOTE | 2020-03-25 15:46 | Progress Note ---
<ERICKEDUARDO MarsAbigail - Last Filed: 03/25/20 15:53> Assessment and Plan - Patient Problems (1) Sepsis Current Visit: Yes Status: Acute Qualifiers: Sepsis acute organ dysfunction status: with acute organ dysfunction Severe sepsis acute organ dysfunction type: acute respiratory failure Acute respiratory failure type: with hypoxia Severe sepsis shock status: without septic shock Plan to address problem: Patient presented with tachypnea, tachycardia, febrile at 102, acute respiratory failure with hypoxia and chest x-ray showed bilateral patchy infiltrate left greater than right. Patient positive for COVID-19 Infectious disease consulted S/p antibiotic therapy 03/13 blood cultures x2 no growth after 5 days (2) Pneumonia due to COVID-19 virus Current Visit: Yes Status: Acute Plan to address problem: 03/14 COVID-19 PCR positive 03/14 Covid 19 antibody positive, not a candidate for comments of plasma Chest x-ray showed bilateral patchy infiltrate left greater than right. S/p cefepime S/p remdesivir and Decadron Patient now on Solu-Medrol per pulmonology Trend inflammatory markers for wrist education Droplet/contact isolation OOB 3 times daily and as tolerated Supplemental oxygen as needed Anticoagulation per protocol Pulmonary hygiene Continue SPO2 monitoring Prone to sleep as tolerated Vitamin C, D, zinc (3) Acute hypoxemic respiratory failure Current Visit: Yes Status: Acute Plan to address problem: Patient presented with acute hypoxic respiratory failure Supplemental oxygen as needed Continue SPO2 monitoring Pulmonary hygiene (4) COPD (chronic obstructive pulmonary disease) Current Visit: Yes Status: Acute Qualifiers: Chronic bronchitis type: unspecified Plan to address problem: Pulmonology consulted, appreciate recommendations Patient is now on Solu-Medrol Supportive care (5) GERD (gastroesophageal reflux disease) Current Visit: Yes Status: Acute Qualifiers: Esophagitis presence: without esophagitis Qualified Code(s): K21.9 - Gastro-esophageal reflux disease without esophagitis Plan to address problem: Continue home PPI (6) Hyperlipidemia Current Visit: Yes Status: Acute Qualifiers: Hyperlipidemia type: mixed hyperlipidemia Qualified Code(s): E78.2 - Mixed hyperlipidemia Plan to address problem: Continue home statin therapy (7) Hypertension Current Visit: Yes Status: Acute Qualifiers: Hypertension type: essential hypertension Qualified Code(s): I10 - Essential (primary) hypertension Plan to address problem: Continue home antihypertensive regimen Blood pressure monitoring per protocol Hydralazine as needed for SBP greater than 160 (8) DVT prophylaxis Current Visit: Yes Status: Acute Plan to address problem: SCDs to bilateral lower extremities while in bed Lovenox subcu History Interval history: 64 YO Female with COPD, GERD, HTN, HLD, Anxiety, OA, ARDS, asthma (mild,intermittent) presents to the emergency department on 03/13 with 5 days of worsening subjective fever, fatigue, muscle aches, generalized weakness, mal aise, dry cough, decreased exercise intolerance, loss of sense of smell and taste, shortness of breath, nausea, multiple loose stools and diminished oral intake. Upon presentation patient was found to be tachypneic, tachycardic and febrile with temperature 101.9 acute hypoxemic respiratory failure with a pulse oximetry on room air of 86% on exertion. Her chest x-ray was compatible with bilateral pneumonia. She was admitted to the hospital service with sepsis as a COVID-19 PUI and infectious disease was consulted. Given patient's persistent hypoxia pulmonology was consulted. Today on examination patient is on 40 L 100% of high flow nasal cannula and 100% nonrebreather. I removed her nonrebreather to adjust her high flow nasal cannula and the patient immediately desatted to the high 80s. Patient states that she is anxious with the prednisone and request for Ativan HD #2 03/14: With acute hypoxemic respiratory failure, bilateral pneumonia, sepsis, Covid PCR pending, Patient resting comfortably in bed. Patient acknowledges improvement in shortness of breath. Patient denies pain. Day 3 03/15/2020\ Patient on high flow oxygen Continue IV Decadron and remdesivir Day #4 03/16/2020 Patient on high flow oxygen Continue IV Decadron and IV remdesivir Day#5 03/17/2020 Continue IV Decadron and IV remdesivir Patient on 10 L nasal cannula oxygen Day #6 03/18/2020 Patient on 10 L nasal cannula oxygen 03/19/2020 Day #7 Patient on high flow oxygen Day # 8 03/20/20 Patient on high flow oxygen 03/21/20 On High flow oxygen\ 03/22/2020 Patient on high flow oxygen from 40 L Patient does not keep her oxygen consistently as the nursing staff and respiratory therapist to decrease oxygen levels 03/23/2020 Patient still on high flow oxygen Alert and oriented and cheerful 12//24/20 patient is on high flow nasal cannula Hospitalist Physical - Constitutional Vitals: Temp Pulse Resp BP Pulse Ox 98.3 F 113 H 18 128/82 90 03/25/20 11:34 03/25/20 11:34 03/25/20 14:06 03/25/20 11:34 03/25/20 14:40 General appearance: Present: no acute distress, well-nourished HEART Score - HEART Score Troponin: Troponin T < 0.010 ng/mL (0.00-0.029) 03/13/20 16:24 Results - Labs CBC & Chem 7: 03/21/20 05:27 03/21/20 05:27 Labs: Laboratory Last Values WBC 14.1 K/mm3 (4.5-11.0) H 03/21/20 05:27 RBC 4.67 M/mm3 (3.65-5.03) 03/21/20 05:27 Hgb 12.7 gm/dl (10.1-14.3) 03/21/20 05:27 Hct 38.8 % (30.3-42.9) 03/21/20 05:27 MCV 83 fl (79-97) 03/21/20 05:27 MCH 27 pg (28-32) L 03/21/20 05:27 MCHC 33 % (30-34) 03/21/20 05:27 RDW 16.1 % (13.2-15.2) H 03/21/20 05:27 Plt Count 513 K/mm3 (140-440) H 03/21/20 05:27 Lymph % (Auto) 11.5 % (13.4-35.0) L 03/21/20 05:27 Harmon % (Auto) 7.9 % (0.0-7.3) H 03/21/20 05:27 Eos % (Auto) 2.0 % (0.0-4.3) 03/21/20 05:27 Baso % (Auto) 0.2 % (0.0-1.8) 03/21/20 05:27 Lymph # (Auto) 1.6 K/mm3 (1.2-5.4) 03/21/20 05:27 Harmon # (Auto) 1.1 K/mm3 (0.0-0.8) H 03/21/20 05:27 Eos # (Auto) 0.3 K/mm3 (0.0-0.4) 03/21/20 05:27 Baso # (Auto) 0.0 K/mm3 (0.0-0.1) 03/21/20 05:27 Seg Neutrophils % 78.4 % (40.0-70.0) H 03/21/20 05:27 Seg Neutrophils # 11.1 K/mm3 (1.8-7.7) H 03/21/20 05:27 PT 11.8 Sec. (12.2-14.9) L 03/13/20 16:24 INR 0.89 (0.87-1.13) 03/13/20 16:24 D-Dimer 274.02 ng/mlDDU (0-234) H 03/22/20 15:45 Sodium 139 mmol/L (137-145) 03/21/20 05:27 Potassium 3.7 mmol/L (3.6-5.0) D 03/21/20 05:27 Chloride 100.7 mmol/L (98-107) 03/21/20 05:27 Carbon Dioxide 25 mmol/L (22-30) D 03/21/20 05:27 Anion Gap 17 mmol/L 03/21/20 05:27 BUN 13 mg/dL (7-17) 03/21/20 05:27 Creatinine 0.6 mg/dL (0.6-1.2) 03/21/20 05:27 Estimated GFR > 60 ml/min 03/21/20 05:27 BUN/Creatinine Ratio 22 % 03/21/20 05:27 Glucose 90 mg/dL (65-100) 03/21/20 05:27 Lactic Acid 1.70 mmol/L (0.7-2.0) 03/13/20 16:24 Calcium 9.8 mg/dL (8.4-10.2) 03/21/20 05:27 Magnesium 1.80 mg/dL (1.7-2.3) 03/13/20 16:24 Total Bilirubin 0.30 mg/dL (0.1-1.2) 03/21/20 05:27 Ferritin 97.2 ng/mL (10.0-200.0) 03/22/20 15:45 Direct Bilirubin < 0.2 mg/dL (0-0.2) 03/16/20 05:18 Indirect Bilirubin 0.1 mg/dL 03/16/20 05:18 AST 12 units/L (5-40) 03/21/20 05:27 ALT 8 units/L (7-56) 03/21/20 05:27 Alkaline Phosphatase 72 units/L (35-129) 03/21/20 05:27 Lactate Dehydrogenase 259 units/L (91-180) H 03/22/20 15:45 Total Creatine Kinase 42 units/L (30-135) 03/13/20 16:24 Troponin T < 0.010 ng/mL (0.00-0.029) 03/13/20 16:24 C-Reactive Protein 7.60 mg/dL (0.00-1.30) H 03/22/20 15:45 NT-Pro-B Natriuret Pep 312.2 pg/mL (0-900) 03/16/20 10:34 Total Protein 7.3 g/dL (6.3-8.2) 03/21/20 05:27 Albumin 3.6 g/dL (3.9-5) L 03/21/20 05:27 Albumin/Globulin Ratio 1.0 % 03/21/20 05:27 Procalcitonin 0.05 ng/mL (<0.15) 03/16/20 10:33 Urine Color Yellow (Yellow) 03/14/20 02:00 Urine Turbidity Clear (Clear) 03/14/20 02:00 Urine pH 7.0 (5.0-7.0) 03/14/20 02:00 Ur Specific [place] 1.014 (1.003-1.030) 03/14/20 02:00 Urine Protein 30 mg/dl mg/dL (Negative) 03/14/20 02:00 Urine Glucose (UA) Neg mg/dL (Negative) 03/14/20 02:00 Urine Ketones Tr mg/dL (Negative) 03/14/20 02:00 Urine Blood Neg (Negative) 03/14/20 02:00 Urine Nitrite Neg (Negative) 03/14/20 02:00 Urine Bilirubin Neg (Negative) 03/14/20 02:00 Urine Urobilinogen < 2.0 mg/dL (<2.0) 03/14/20 02:00 Ur Leukocyte Esterase Neg (Negative) 03/14/20 02:00 Urine WBC (Auto) 1.0 /HPF (0.0-6.0) 03/14/20 02:00 Urine RBC (Auto) 1.0 /HPF (0.0-6.0) 03/14/20 02:00 U Epithel Cells (Auto) 1.0 /HPF (0-13.0) 03/14/20 02:00 Coronavirus (PCR) Positive (Negative) A 03/14/20 Unknown SARS-CoV-2 IgG Ab Reactive (NonReactive) A 03/14/20 16:58 Sorensen/IV: Voiding Method Toilet IV Catheter Type [Right Wrist] INT / Saline Lock IV Catheter Type [Right Hand] INT / Saline Lock IV Catheter Type [Left Upper INT / Saline Lock arm] IV Catheter Type [Left Peripheral IV Antecubital] Active Medications - Current Medications Current Medications: Generic Name Dose Route Start Last Admin Trade Name Freq PRN Reason Stop Dose Admin Acetaminophen 650 mg 03/13/20 17:21 03/23/20 18:40 Acetaminophen 325 Mg Tab PO 650 mg Q4H PRN Administration Pain MILD(1-3)/Fever >100.5/CARIAS Acetaminophen/Butalbital/Caffeine 1 tab 03/19/20 20:45 03/25/20 14:58 Butalb/Acetaminophen/Caffeine Tab PO 1 tab Q4H PRN Administration Headache Albuterol 2.5 mg 03/13/20 17:21 Albuterol 2.5 Mg/3 Ml Nebu IH Q4HRT PRN Shortness Of Breath Benzonatate 100 mg 03/13/20 22:00 03/25/20 13:11 Benzonatate 100 Mg Cap PO 100 mg Q8HR SANDY Administration Duloxetine HCl 60 mg 03/14/20 10:00 03/25/20 09:11 Duloxetine 30 Mg Cap PO 60 mg QDAY SANDY Administration Enoxaparin Sodium 40 mg 03/23/20 22:00 03/24/20 21:06 Enoxaparin 40 Mg/0.4 Ml Inj SUB-Q 40 mg QDAY@2200 SANDY Administration Protocol Ergocalciferol 50,000 unit 03/20/20 10:00 03/20/20 10:41 Ergocalciferol (Vit D2) 50,000 Unit Cap PO 50,000 unit Calzada SANDY Administration Famotidine 10 mg 03/13/20 22:00 03/25/20 09:11 Famotidine 10 Mg Tab PO 10 mg BID SANDY Administration Gabapentin 300 mg 03/13/20 20:00 03/25/20 13:11 Gabapentin 300 Mg Cap PO 300 mg TID SANDY Administration Guaifenesin 10 ml 03/13/20 17:24 03/25/20 02:10 Guaifenesin Dm 200/20 Mg Oral Liqd 10 Ml PO 10 ml Q4H PRN Administration Cough Hydroxyzine Pamoate 50 mg 03/13/20 22:00 03/25/20 13:11 Hydroxyzine Pamoate 50 Mg Cap PO 50 mg QID SANDY Administration Lamotrigine 100 mg 03/14/20 10:00 03/25/20 09:11 Lamotrigine 100 Mg Tab PO 100 mg QDAY SANDY Administration [place] Carbonate 150 mg 03/13/20 22:00 03/25/20 09:[address] Carbonate 150 Mg Cap PO 150 mg BID SANDY Administration Methylprednisolone Sodium Succinate 60 mg 03/23/20 12:45 03/25/20 13:10 Methylprednisolone Sod Succinate 125 Mg/2 Ml Inj IV 60 mg Q6HR SANDY Administration Montelukast Sodium 10 mg 03/14/20 10:00 03/25/20 09:12 Montelukast 10 Mg Tab PO 10 mg DAILY SANDY Administration Ondansetron HCl 4 mg 03/13/20 17:21 03/25/20 09:11 Ondansetron 4 Mg/2 Ml Inj IV 4 mg Q8H PRN Administration Nausea And Vomiting Oxybutynin Chloride 5 mg 03/13/20 20:00 03/25/20 13:11 Oxybutynin 5 Mg Tab PO 5 mg TID SANDY Administration Sodium Chloride 10 ml 03/13/20 22:00 03/25/20 09:12 Sodium Chloride 0.9% 10 Ml Flush Syringe IV 10 ml BID SANDY Administration Sodium Chloride 10 ml 03/13/20 17:21 Sodium Chloride 0.9% 10 Ml Flush Syringe IV PRN PRN LINE FLUSH Trazodone HCl 100 mg 03/13/20 22:00 03/24/20 21:06 Trazodone 100 Mg Tab PO 100 mg QHS SANDY Administration Nutrition/Malnutrition Assess - Dietary Evaluation Nutrition/Malnutrition Findings: Nutrition Notes Start: 03/14/20 15:39 Freq: Status: Active Protocol: Document 03/24/20 13:42 (Rec: 03/24/20 13:50 [id number]) Nutrition Notes Initial or Follow up Reassessment Current Diagnosis COPD,Sepsis,Hypertension, Hyperlipidemia Other Pertinent Diagnosis COVID-19, Pneu, Anxiety, GERD, OA, ARF, bronchitis Current Diet Cardiac Labs/Tests Reviewed Pertinent Medications sOLU-mEDROL Height 5 ft 1 in Weight 64.9 kg [place] Body Weight (kg) 47.72 BMI 27.0 Weight Status Overweight Subjective/Other Information FU for intakes. Pt did not answer phone x2. Per tech, pt asked for Ensures today. Pt did not eat breakfast and RN and tech are unsure about lunch. Percent of energy/protein needs met: 48%/65% Burn Absent Trauma Absent GI Symptoms None Food Allergy No Current % PO Poor (25-49%) Minimum of two criteria No Energy Intake (non-severe) <75% Estimated Energy Requirement >7 days #1 Nutrition Diagnosis Inadequate oral intake Diagnosis Progress(for reassessment Continues documentation) Is patient on ventilator? No Is Patient Ambulatory and/or Out of Bed Yes REE-([place]nn-St. Jeor-ambulatory/OOB) [ 1464.294 NUTR.MSJOOB] [facility] Additional Notes Protein: 1-1.2 g/kg (62-74g) Fluid: 1 ml/kcal Nutrition Intervention Change Diet Order: Continue Add Supplement/Snack (indicate name/kcal Ensure Enlive TID /protein ) Provides kCal: 1,050 Provides Protein (gm) 60 Goal #1 Meet at least 75% of energy and protein needs via PO and ONS Anticipated Discharge Needs: Cardiac Diet with ONS PRN Follow-Up By: 03/29/20 Additional Comments FU for PO/ONS intakes, tolerance <GERSON BRYAN R - Last Filed: 03/25/20 22:16> Assessment and Plan Assessment and plan: I saw and evaluated the patient. I agree with the findings and the plan of care as documented in the Nurse Practitioner's~note, Hospitalist Physical - Constitutional Vitals: Temp Pulse Resp BP Pulse Ox 98.4 F 114 H 24 135/87 91 03/25/20 16:09 03/25/20 16:09 03/25/20 16:09 03/25/20 16:09 03/25/20 16:09 HEART Score - HEART Score Troponin: Troponin T < 0.010 ng/mL (0.00-0.029) 03/13/20 16:24 Results - Labs CBC & Chem 7: 03/21/20 05:27 03/21/20 05:27 Labs: Laboratory Last Values WBC 14.1 K/mm3 (4.5-11.0) H 03/21/20 05:27 RBC 4.67 M/mm3 (3.65-5.03) 03/21/20 05:27 Hgb 12.7 gm/dl (10.1-14.3) 03/21/20 05:27 Hct 38.8 % (30.3-42.9) 03/21/20 05:27 MCV 83 fl (79-97) 03/21/20 05:27 MCH 27 pg (28-32) L 03/21/20 05:27 MCHC 33 % (30-34) 03/21/20 05:27 RDW 16.1 % (13.2-15.2) H 03/21/20 05:27 Plt Count 513 K/mm3 (140-440) H 03/21/20 05:27 Lymph % (Auto) 11.5 % (13.4-35.0) L 03/21/20 05:27 [place] % (Auto) 7.9 % (0.0-7.3) H 03/21/20 05:27 Eos % (Auto) 2.0 % (0.0-4.3) 03/21/20 05:27 Baso % (Auto) 0.2 % (0.0-1.8) 03/21/20 05:27 Lymph # (Auto) 1.6 K/mm3 (1.2-5.4) 03/21/20 05:27 [place] # (Auto) 1.1 K/mm3 (0.0-0.8) H 03/21/20 05:27 Eos # (Auto) 0.3 K/mm3 (0.0-0.4) 03/21/20 05:27 Baso # (Auto) 0.0 K/mm3 (0.0-0.1) 03/21/20 05:27 Seg Neutrophils % 78.4 % (40.0-70.0) H 03/21/20 05:27 Seg Neutrophils # 11.1 K/mm3 (1.8-7.7) H 03/21/20 05:27 PT 11.8 Sec. (12.2-14.9) L 03/13/20 16:24 INR 0.89 (0.87-1.13) 03/13/20 16:24 D-Dimer 274.02 ng/mlDDU (0-234) H 03/22/20 15:45 Sodium 139 mmol/L (137-145) 03/21/20 05:27 Potassium 3.7 mmol/L (3.6-5.0) D 03/21/20 05:27 Chloride 100.7 mmol/L (98-107) 03/21/20 05:27 Carbon Dioxide 25 mmol/L (22-30) D 03/21/20 05:27 Anion Gap 17 mmol/L 03/21/20 05:27 BUN 13 mg/dL (7-17) 03/21/20 05:27 Creatinine 0.6 mg/dL (0.6-1.2) 03/21/20 05:27 Estimated GFR > 60 ml/min 03/21/20 05:27 BUN/Creatinine Ratio 22 % 03/21/20 05:27 Glucose 90 mg/dL (65-100) 03/21/20 05:27 Lactic Acid 1.70 mmol/L (0.7-2.0) 03/13/20 16:24 Calcium 9.8 mg/dL (8.4-10.2) 03/21/20 05:27 Magnesium 1.80 mg/dL (1.7-2.3) 03/13/20 16:24 Total Bilirubin 0.30 mg/dL (0.1-1.2) 03/21/20 05:27 Ferritin 97.2 ng/mL (10.0-200.0) 03/22/20 15:45 Direct Bilirubin < 0.2 mg/dL (0-0.2) 03/16/20 05:18 Indirect Bilirubin 0.1 mg/dL 03/16/20 05:18 AST 12 units/L (5-40) 03/21/20 05:27 ALT 8 units/L (7-56) 03/21/20 05:27 Alkaline Phosphatase 72 units/L (35-129) 03/21/20 05:27 Lactate Dehydrogenase 259 units/L (91-180) H 03/22/20 15:45 Total Creatine Kinase 42 units/L (30-135) 03/13/20 16:24 Troponin T < 0.010 ng/mL (0.00-0.029) 03/13/20 16:24 C-Reactive Protein 7.60 mg/dL (0.00-1.30) H 03/22/20 15:45 NT-Pro-B Natriuret Pep 220.0 pg/mL (0-900) 03/25/20 15:14 Total Protein 7.3 g/dL (6.3-8.2) 03/21/20 05:27 Albumin 3.6 g/dL (3.9-5) L 03/21/20 05:27 Albumin/Globulin Ratio 1.0 % 03/21/20 05:27 Procalcitonin 0.05 ng/mL (<0.15) 03/16/20 10:33 Urine Color Yellow (Yellow) 03/14/20 02:00 Urine Turbidity Clear (Clear) 03/14/20 02:00 Urine pH 7.0 (5.0-7.0) 03/14/20 02:00 Ur Specific [place] 1.014 (1.003-1.030) 03/14/20 02:00 Urine Protein 30 mg/dl mg/dL (Negative) 03/14/20 02:00 Urine Glucose (UA) Neg mg/dL (Negative) 03/14/20 02:00 Urine Ketones Tr mg/dL (Negative) 03/14/20 02:00 Urine Blood Neg (Negative) 03/14/20 02:00 Urine Nitrite Neg (Negative) 03/14/20 02:00 Urine Bilirubin Neg (Negative) 03/14/20 02:00 Urine Urobilinogen < 2.0 mg/dL (<2.0) 03/14/20 02:00 Ur Leukocyte Esterase Neg (Negative) 03/14/20 02:00 Urine WBC (Auto) 1.0 /HPF (0.0-6.0) 03/14/20 02:00 Urine RBC (Auto) 1.0 /HPF (0.0-6.0) 03/14/20 02:00 U Epithel Cells (Auto) 1.0 /HPF (0-13.0) 03/14/20 02:00 Coronavirus (PCR) Positive (Negative) A 03/14/20 Unknown SARS-CoV-2 IgG Ab Reactive (NonReactive) A 03/14/20 16:58 Sorensen/IV: Voiding Method Bedside Commode IV Catheter Type [Right Wrist] INT / Saline Lock IV Catheter Type [Right Hand] INT / Saline Lock IV Catheter Type [Left Upper INT / Saline Lock arm] IV Catheter Type [Left Peripheral IV Antecubital] Active Medications - Current Medications Current Medications: Generic Name Dose Route Start Last Admin Trade Name Freq PRN Reason Stop Dose Admin Acetaminophen 650 mg 03/13/20 17:21 03/23/20 18:40 Acetaminophen 325 Mg Tab PO 650 mg Q4H PRN Administration Pain MILD(1-3)/Fever >100.5/CARIAS Acetaminophen/Butalbital/Caffeine 1 tab 03/19/20 20:45 03/25/20 20:23 Butalb/Acetaminophen/Caffeine Tab PO 1 tab Q4H PRN Administration Headache Albuterol 2.5 mg 03/13/20 17:21 Albuterol 2.5 Mg/3 Ml Nebu IH Q4HRT PRN Shortness Of Breath Alprazolam 0.5 mg 03/25/20 20:27 Alprazolam 0.5 Mg Tab PO Q8H PRN Anxiety Amitriptyline HCl 10 mg 03/25/20 22:00 03/25/20 21:01 Amitriptyline 10 Mg Tab PO 10 mg QHS SANDY Administration Ascorbic Acid 500 mg 03/26/20 10:00 Ascorbic Acid 500 Mg Tab PO QDAY SANDY Benzonatate 100 mg 03/13/20 22:00 03/25/20 21:02 Benzonatate 100 Mg Cap PO 100 mg Q8HR SANDY Administration Duloxetine HCl 60 mg 03/14/20 10:00 03/25/20 09:11 Duloxetine 30 Mg Cap PO 60 mg QDAY SANDY Administration Enoxaparin Sodium 40 mg 03/23/20 22:00 03/25/20 21:01 Enoxaparin 40 Mg/0.4 Ml Inj SUB-Q 40 mg QDAY@2200 SANDY Administration Protocol Ergocalciferol 50,000 unit 03/20/20 10:00 03/20/20 10:41 Ergocalciferol (Vit D2) 50,000 Unit Cap PO 50,000 unit [place] SANDY Administration Famotidine 10 mg 03/13/20 22:00 03/25/20 21:01 Famotidine 10 Mg Tab PO 10 mg BID SANDY Administration Gabapentin 300 mg 03/13/20 20:00 03/25/20 20:23 Gabapentin 300 Mg Cap PO 300 mg TID SANDY Administration Guaifenesin 10 ml 03/13/20 17:24 03/25/20 02:10 Guaifenesin Dm 200/20 Mg Oral Liqd 10 Ml PO 10 ml Q4H PRN Administration Cough Hydroxyzine Pamoate 50 mg 03/13/20 22:00 03/25/20 21:01 Hydroxyzine Pamoate 50 Mg Cap PO 50 mg QID SANDY Administration Lamotrigine 100 mg 03/14/20 10:00 03/25/20 09:11 Lamotrigine 100 Mg Tab PO 100 mg QDAY SANDY Administration [place] Carbonate 150 mg 03/13/20 22:00 03/25/20 21:[address] Carbonate 150 Mg Cap PO 150 mg BID SANDY Administration Methylprednisolone Sodium Succinate 60 mg 03/23/20 12:45 03/25/20 17:46 Methylprednisolone Sod Succinate 125 Mg/2 Ml Inj IV 60 mg Q6HR SANDY Administration Montelukast Sodium 10 mg 03/14/20 10:00 03/25/20 09:12 Montelukast 10 Mg Tab PO 10 mg DAILY SANDY Administration Ondansetron HCl 4 mg 03/13/20 17:21 03/25/20 18:41 Ondansetron 4 Mg/2 Ml Inj IV 4 mg Q8H PRN Administration Nausea And Vomiting Oxybutynin Chloride 5 mg 03/13/20 20:00 03/25/20 20:23 Oxybutynin 5 Mg Tab PO 5 mg TID SANDY Administration Phenol 1 spray 03/25/20 20:05 Phenol 1.4% 177 Ml Bottle MM PRN PRN Sore Throat Sodium Chloride 10 ml 03/13/20 22:00 03/25/20 21:01 Sodium Chloride 0.9% 10 Ml Flush Syringe IV 10 ml BID SANDY Administration Sodium Chloride 10 ml 03/13/20 17:21 Sodium Chloride 0.9% 10 Ml Flush Syringe IV PRN PRN LINE FLUSH Trazodone HCl 100 mg 03/13/20 22:00 03/25/20 21:01 Trazodone 100 Mg Tab PO 100 mg QHS SANDY Administration Zinc Sulfate 220 mg 03/26/20 10:00 Zinc Sulfate 220 Mg Cap PO QDAY SANDY Nutrition/Malnutrition Assess - Dietary Evaluation Nutrition/Malnutrition Findings: Nutrition Notes Start: 03/14/20 15:39 Freq: Status: Active Protocol: Document 03/24/20 13:42 MK (Rec: 03/24/20 13:50 MK [id number]) Nutrition Notes Initial or Follow up Reassessment Current Diagnosis COPD,Sepsis,Hypertension, Hyperlipidemia Other Pertinent Diagnosis COVID-19, Pneu, Anxiety, GERD, OA, ARF, bronchitis Current Diet Cardiac Labs/Tests Reviewed Pertinent Medications sOLU-mEDROL Height 5 ft 1 in Weight 64.9 kg [place] Body Weight (kg) 47.72 BMI 27.0 Weight Status Overweight Subjective/Other Information FU for intakes. Pt did not answer phone x2. Per tech, pt asked for Ensures today. Pt did not eat breakfast and RN and tech are unsure about lunch. Percent of energy/protein needs met: 48%/65% Burn Absent Trauma Absent GI Symptoms None Food Allergy No Current % PO Poor (25-49%) Minimum of two criteria No Energy Intake (non-severe) <75% Estimated Energy Requirement >7 days #1 Nutrition Diagnosis Inadequate oral intake Diagnosis Progress(for reassessment Continues documentation) Is patient on ventilator? No Is Patient Ambulatory and/or Out of Bed Yes REE-([facility]-ambulatory/OOB) [ 1464.294 NUTR.MSJOOB] Calculation Used for Recommendations [facility] Additional Notes Protein: 1-1.2 g/kg (62-74g) Fluid: 1 ml/kcal Nutrition Intervention Change Diet Order: Continue Add Supplement/Snack (indicate name/kcal Ensure Enlive TID /protein ) Provides kCal: 1,050 Provides Protein (gm) 60 Goal #1 Meet at least 75% of energy and protein needs via PO and ONS Anticipated Discharge Needs: Cardiac Diet with ONS PRN Follow-Up By: 03/29/20 Additional Comments FU for PO/ONS intakes, tolerance
[2020-03-25] MEDS ORDERED: FUROSEMIDE 40 MG/4 ML INJ IV ONE (15:49)
[2020-03-25] MEDS ORDERED: ALPRAZolam 0.5 MG TAB PO PRN (16:08)
[2020-03-25] MEDS ORDERED: PHENOL 1.4% 177 ML BOTTLE MM PRN (20:05)
--- NOTE | 2020-03-25 20:34 | Progress Note ---
Assessment and Plan Imp: 1. Covid-19 2. Viral pneumonia 3. COPD exac. 4. Acute respiratory failure, hypoxia 5. Anxiety Rec: 1. Cont. Solumedrol IV; finished 10 days of Decadron and 5 of Remdesivir 2. Proning as able; incentive scooter 10x per hour while awake 3. Xanax prn anxiety 4. On Lovenox daily for VTE PPx; D-dimer has not been very elevated; however, if continued hypoxia will consider CTA chest; plan CXR in AM 5. Prognosis guarded; remains critically ill; CCT 31 minutes Plan of care reviewed w/ patient, she understands/agrees Subjective Date of service: 03/25/20 Principal diagnosis: COVID/COPD Interval history: No events. SOB the same. + Anxiety due to steroids. Remains on 40LPM and 100% FiO2 plus NRB. Active Medications Acetaminophen (Acetaminophen 325 Mg Tab) 650 mg PO Q4H PRN PRN Reason: Pain MILD(1-3)/Fever >100.5/CARIAS Last Admin: 03/23/20 18:40 Dose: 650 mg Documented by: Acetaminophen/Butalbital/Caffeine (Butalb/Acetaminophen/Caffeine Tab) 1 tab PO Q4H PRN PRN Reason: Headache Last Admin: 03/25/20 20:23 Dose: 1 tab Documented by: Albuterol (Albuterol 2.5 Mg/3 Ml Nebu) 2.5 mg IH Q4HRT PRN PRN Reason: Shortness Of Breath Alprazolam (Alprazolam 0.5 Mg Tab) 0.5 mg PO Q8H PRN PRN Reason: Anxiety Amitriptyline HCl (Amitriptyline 10 Mg Tab) 10 mg PO QHS [facility] Ascorbic Acid (Ascorbic Acid 500 Mg Tab) 500 mg PO QDAY [facility] Benzonatate (Benzonatate 100 Mg Cap) 100 mg PO Q8HR [facility] Last Admin: 03/25/20 13:11 Dose: 100 mg Documented by: Duloxetine HCl (Duloxetine 30 Mg Cap) 60 mg PO QDAY [facility] Last Admin: 03/25/20 09:11 Dose: 60 mg Documented by: Enoxaparin Sodium (Enoxaparin 40 Mg/0.4 Ml Inj) 40 mg SUB-Q QDAY@2200 [facility]; Protocol Last Admin: 03/24/20 21:06 Dose: 40 mg Documented by: Ergocalciferol (Ergocalciferol (Vit D2) 50,000 Unit Cap) 50,000 unit PO [place] [facility] Last Admin: 03/20/20 10:41 Dose: 50,000 unit Documented by: Famotidine (Famotidine 10 Mg Tab) 10 mg PO BID [facility] Last Admin: 03/25/20 09:11 Dose: 10 mg Documented by: Gabapentin (Gabapentin 300 Mg Cap) 300 mg PO TID [facility] Last Admin: 03/25/20 20:23 Dose: 300 mg Documented by: Guaifenesin (Guaifenesin Dm 200/20 Mg Oral Liqd 10 Ml) 10 ml PO Q4H PRN PRN Reason: Cough Last Admin: 03/25/20 02:10 Dose: 10 ml Documented by: Hydroxyzine Pamoate (Hydroxyzine Pamoate 50 Mg Cap) 50 mg PO QID [facility] Last Admin: 03/25/20 17:46 Dose: 50 mg Documented by: Lamotrigine (Lamotrigine 100 Mg Tab) 100 mg PO QDAY [facility] Last Admin: 03/25/20 09:11 Dose: 100 mg Documented by: [place] Carbonate ([place] Carbonate 150 Mg Cap) 150 mg PO BID [facility] Last Admin: 03/25/20 09:12 Dose: 150 mg Documented by: Methylprednisolone Sodium Succinate (Methylprednisolone Sod Succinate 125 Mg/2 Ml Inj) 60 mg IV Q6HR [facility] Last Admin: 03/25/20 17:46 Dose: 60 mg Documented by: Montelukast Sodium (Montelukast 10 Mg Tab) 10 mg PO DAILY [facility] Last Admin: 03/25/20 09:12 Dose: 10 mg Documented by: Ondansetron HCl (Ondansetron 4 Mg/2 Ml Inj) 4 mg IV Q8H PRN PRN Reason: Nausea And Vomiting Last Admin: 03/25/20 18:41 Dose: 4 mg Documented by: Oxybutynin Chloride (Oxybutynin 5 Mg Tab) 5 mg PO TID [facility] Last Admin: 03/25/20 20:23 Dose: 5 mg Documented by: Phenol (Phenol 1.4% 177 Ml Bottle) 1 spray MM PRN PRN PRN Reason: Sore Throat Sodium Chloride (Sodium Chloride 0.9% 10 Ml Flush Syringe) 10 ml IV BID [facility] Last Admin: 03/25/20 09:12 Dose: 10 ml Documented by: Sodium Chloride (Sodium Chloride 0.9% 10 Ml Flush Syringe) 10 ml IV PRN PRN PRN Reason: LINE FLUSH Trazodone HCl (Trazodone 100 Mg Tab) 100 mg PO QHS [facility] Last Admin: 03/24/20 21:06 Dose: 100 mg Documented by: Zinc Sulfate (Zinc Sulfate 220 Mg Cap) 220 mg PO QDAY [facility] Objective Vital Signs - 12hr 03/25/20 03/25/20 03/25/20 11:34 14:06 14:40 Temperature 98.3 F Pulse Rate 113 H Respiratory 24 18 Rate Blood Pressure 128/82 O2 Sat by Pulse 90 93 90 Oximetry 03/25/20 16:09 Temperature 98.4 F Pulse Rate 114 H Respiratory 24 Rate Blood Pressure 135/87 O2 Sat by Pulse 91 Oximetry Constitutional: alert, other (critically ill on HFNC) Eyes: non-icteric Neck: supple Effort: normal Ascultation: Bilateral: wheezes Cardiovascular: other (tachy, RR; no mrg) Gastrointestinal: normoactive bowel sounds, soft, non-tender Integumentary: normal Extremities: no cyanosis, no edema, pink and warm Neurologic: normal mental status, non-focal exam, CN II-XII normal Psychiatric: mood appropriate, affect normal CBC and BMP: 03/21/20 05:27 03/21/20 05:27 ABG, PT/INR, D-dimer: PT/INR, D-dimer PT 11.8 Sec. (12.2-14.9) L 03/13/20 16:24 INR 0.89 (0.87-1.13) 03/13/20 16:24 D-Dimer 274.02 ng/mlDDU (0-234) H 03/22/20 15:45 Abnormal lab findings: Abnormal Labs 03/13/20 03/13/20 03/13/20 16:24 16:24 16:24 WBC MCH RDW 16.8 H Plt Count Lymph % (Auto) 8.5 L Hand % (Auto) Lymph # (Auto) 0.6 L Hand # (Auto) Seg Neutrophils % 84.9 H Seg Neutrophils # PT 11.8 L D-Dimer 234.66 H Sodium 135 L Potassium 3.1 L Chloride Carbon Dioxide Glucose 174 H Lactate Dehydrogenase 277 H C-Reactive Protein 8.00 H Albumin 3.7 L Coronavirus (PCR) SARS-CoV-2 IgG Ab 03/13/20 03/14/20 03/14/20 16:24 08:02 08:02 WBC 3.9 L MCH RDW 16.3 H Plt Count Lymph % (Auto) Hand % (Auto) 9.5 H Lymph # (Auto) 0.7 L [place] # (Auto) Seg Neutrophils % 72.9 H Seg Neutrophils # PT D-Dimer Sodium Potassium Chloride 107.4 H Carbon Dioxide Glucose 174 H 142 H Lactate Dehydrogenase 267 H C-Reactive Protein 8.10 H Albumin Coronavirus (PCR) SARS-CoV-2 IgG Ab 03/14/20 03/14/20 03/14/20 16:58 16:58 Unknown WBC MCH RDW Plt Count Lymph % (Auto) Hand % (Auto) Lymph # (Auto) Hand # (Auto) Seg Neutrophils % Seg Neutrophils # PT D-Dimer Sodium Potassium Chloride Carbon Dioxide Glucose Lactate Dehydrogenase 277 H C-Reactive Protein 2.60 H Albumin Coronavirus (PCR) Positive A SARS-CoV-2 IgG Ab Reactive A 03/16/20 03/16/20 03/16/20 05:18 05:18 10:34 WBC MCH RDW 16.4 H Plt Count Lymph % (Auto) Hand % (Auto) 10.0 H Lymph # (Auto) Hand # (Auto) Seg Neutrophils % Seg Neutrophils # PT D-Dimer 278.32 H Sodium Potassium 3.1 L Chloride Carbon Dioxide Glucose Lactate Dehydrogenase C-Reactive Protein Albumin 3.4 L Coronavirus (PCR) SARS-CoV-2 IgG Ab 03/16/20 03/17/20 03/18/20 10:34 21:24 05:58 WBC 14.8 H MCH RDW 15.8 H Plt Count Lymph % (Auto) 11.5 L Hand % (Auto) Lymph # (Auto) Hand # (Auto) 1.0 H Seg Neutrophils % 81.3 H Seg Neutrophils # 12.0 H PT D-Dimer Sodium Potassium Chloride Carbon Dioxide Glucose 182 H Lactate Dehydrogenase 268 H 268 H C-Reactive Protein 2.10 H 4.90 H Albumin Coronavirus (PCR) SARS-CoV-2 IgG Ab 03/18/20 03/21/20 03/21/20 05:58 05:27 05:27 WBC 14.1 H MCH 27 L RDW 16.1 H Plt Count 513 H Lymph % (Auto) 11.5 L Hand % (Auto) 7.9 H Lymph # (Auto) Hand # (Auto) 1.1 H Seg Neutrophils % 78.4 H Seg Neutrophils # 11.1 H PT D-Dimer Sodium Potassium 2.9 L* Chloride Carbon Dioxide 18 L Glucose Lactate Dehydrogenase C-Reactive Protein Albumin 3.6 L 3.6 L Coronavirus (PCR) SARS-CoV-2 IgG Ab 03/22/20 03/22/20 03/22/20 15:45 15:45 15:45 WBC MCH RDW Plt Count Lymph % (Auto) Hand % (Auto) Lymph # (Auto) Hand # (Auto) Seg Neutrophils % Seg Neutrophils # PT D-Dimer 274.02 H Sodium Potassium Chloride Carbon Dioxide Glucose Lactate Dehydrogenase 259 H C-Reactive Protein 7.60 H Albumin Coronavirus (PCR) SARS-CoV-2 IgG Ab Chest x-ray: report reviewed, image reviewed
[2020-03-25] MEDS: AMITRIPTYLINE 10 MG TAB PO SCH (21:01)
[2020-03-25] MEDS: traZODone 100 MG TAB PO SCH (21:01)
[2020-03-25] MEDS: ENOXAPARIN 40 MG/0.4 ML INJ SUB-Q SCH (21:01)
[2020-03-26] MEDS: BUTALB/ACETAMINOPHEN/CAFFEINE TAB PO PRN ×2 (00:20→04:27)
[2020-03-26] MEDS: ALPRAZolam 0.5 MG TAB PO PRN ×3 (00:21→20:21)
[2020-03-26] MEDS: methylPREDNISolone Sod Succinate 125 MG/2 ML INJ IV SCH ×4 (00:21→17:24)
[2020-03-26] MEDS: BENZONATATE 100 MG CAP PO SCH ×3 (05:27→23:15)
[2020-03-26 07:04] LABS: Hematocrit 38.1 % (30.3-42.9); Hemoglobin 12.8 gm/dl (10.1-14.3); Mean Corpuscular HGB Conc 34 % (30-34); Mean Corpuscular Volume 82 fl (79-97); Platelet Count 579 K/mm3 (140-440); Red Blood Count 4.65 M/mm3 (3.65-5.03); Red Cell Distribution Width 15.9 % (13.2-15.2)
[2020-03-26 07:37] LABS: BUN/Creatinine Ratio 28; Blood Urea Nitrogen 22 mg/dL (7-17); Calcium 9.8 mg/dL (8.4-10.2); Hemolysis Index 42
--- NOTE | 2020-03-26 08:42 | XRay Report ---
CHEST 1 VIEW 7:52 AM INDICATION / CLINICAL INFORMATION: COVID-19 pneumonia. COMPARISON: 03/16/20. FINDINGS: SUPPORT DEVICES: None. HEART / MEDIASTINUM: Borderline cardiomegaly is stable. LUNGS / PLEURA: There is moderate patchy parenchymal disease throughout the left lung, mildly increas ed. Milder patchy parenchymal disease in the right mid-upper lung has shown more significant increase . No large pleural effusion. No pneumothorax. ADDITIONAL FINDINGS: No significant additional findings. IMPRESSION: Moderate patchy parenchymal disease throughout both lungs, left greater than right, has s hown significant increase. Signer Name: Diogenes Adame MD Signed: 03/26/2020 8:38 AM Workstation Name: [id number]
[2020-03-26] MEDS: LITHIUM CARBONATE 150 MG CAP PO SCH ×2 (09:43→23:17)
[2020-03-26] MEDS: OXYBUTYNIN 5 MG TAB PO SCH ×3 (09:43→20:06)
[2020-03-26] MEDS: FAMOTIDINE 10 MG TAB PO SCH ×2 (09:44→23:15)
[2020-03-26] MEDS: GABAPENTIN 300 MG CAP PO SCH ×3 (09:44→20:06)
[2020-03-26] MEDS: DULoxetine 30 MG CAP PO SCH (09:44)
[2020-03-26] MEDS: MONTELUKAST 10 MG TAB PO SCH (09:44)
[2020-03-26] MEDS: lamoTRIgine 100 MG TAB PO SCH (09:44)
[2020-03-26] MEDS: ASCORBIC ACID 500 MG TAB PO SCH (09:46)
[2020-03-26] MEDS: ZINC SULFATE 220 MG CAP PO SCH (09:51)
[2020-03-26] MEDS ORDERED: DULoxetine 30 MG CAP PO SCH (10:00)
[2020-03-26] MEDS ORDERED: ASCORBIC ACID 500 MG TAB PO SCH (10:00)
[2020-03-26] MEDS ORDERED: ZINC SULFATE 220 MG CAP PO SCH (10:00)
[2020-03-26] MEDS: ONDANSETRON 4 MG/2 ML INJ IV PRN (11:23)
--- NOTE | 2020-03-26 18:24 | Progress Note ---
Assessment and Plan -- Sepsis due to COVID 19 PNA Patient presented with tachypnea, tachycardia, febrile at 102, acute respiratory failure with hypoxia and chest x-ray showed bilateral patchy infiltrate left greater than right. Patient positive for COVID-19 Infectious disease consulted S/p antibiotic therapy 03/13 blood cultures x2 no growth after 5 days -- Pneumonia due to COVID-19 virus 03/14 COVID-19 PCR positive 03/14 Covid 19 antibody positive, not a candidate for convalescent plasma Chest x-ray showed bilateral patchy infiltrate left greater than right. S/p cefepime S/p remdesivir and Decadron Patient now on Solu-Medrol per pulmonology Trend inflammatory markers for wrist education Droplet/contact isolation OOB 3 times daily and as tolerated Supplemental oxygen as needed Anticoagulation per protocol Pulmonary hygiene Continue SPO2 monitoring Prone to sleep as tolerated Vitamin C, D, zinc -- Acute hypoxemic respiratory failure Patient presented with acute hypoxic respiratory failure Supplemental oxygen as needed Continue SPO2 monitoring Pulmonary hygiene -- COPD (chronic obstructive pulmonary disease) with exacerbation Pulmonology consulted, appreciate recommendations Patient is now on Solu-Medrol and high flow O2 Supportive care and scheduled nebs --GERD (gastroesophageal reflux disease) Continue home PPI -- Hyperlipidemia Continue home statin therapy -- Hypertension Continue home antihypertensive regimen Blood pressure monitoring per protocol Hydralazine as needed for SBP greater than 160 -- DVT prophylaxis SCDs to bilateral lower extremities while in bed Lovenox subcu History Interval history: 64 YO Female with COPD, GERD, HTN, HLD, Anxiety, OA, ARDS, asthma (mild,intermittent) presents to the emergency department on 03/13 with 5 days of worsening subjective fever, fatigue, muscle aches, generalized weakness, malaise, dry cough, decreased exercise intolerance, loss of sense of smell and taste, shortness of breath, nausea, multiple loose stools and diminished oral intake. Upon presentation patient was found to be tachypneic, tachycardic and febrile with temperature 101.9 acute hypoxemic respiratory failure with a pulse oximetry on room air of 86% on exertion. Her chest x-ray was compatible with bilateral pneumonia. She was admitted to the hospital service with sepsis as a COVID-19 PUI and infectious disease was consulted. Given patient's persistent hypoxia pulmonology was consulted. patient remains on high flow O2 - weaning in progress HD #2 03/14: With acute hypoxemic respiratory failure, bilateral pneumonia, sepsis, Covid PCR pending, Patient resting comfortably in bed. Patient acknowledges improvement in shortness of breath. Patient denies pain. Day 3 03/15/2020\ Patient on high flow oxygen Continue IV Decadron and remdesivir Day #4 03/16/2020 Patient on high flow oxygen Continue IV Decadron and IV remdesivir Day#5 03/17/2020 Continue IV Decadron and IV remdesivir Patient on 10 L nasal cannula oxygen Day #6 03/18/2020 Patient on 10 L nasal cannula oxygen 03/19/2020 Day #7 Patient on high flow oxygen Day # 8 03/20/20 Patient on high flow oxygen 03/21/20 On High flow oxygen\ 03/22/2020 Patient on high flow oxygen from 40 L Patient does not keep her oxygen consistently as the nursing staff and respiratory therapist to decrease oxygen levels 03/23/2020 Patient still on high flow oxygen Alert and oriented and cheerful 03/24/20 patient is on high flow nasal cannula 03/25: remains on high flow O2 03/26: remain on 40L high flow O2, cont supportive care Subjective Date of service: 03/26/20 Principal diagnosis: COVID/COPD Interval history: Patient seen and examined. Medical records and medication list reviewed. No acute event overnight noted by the RN. Patient appears slightly agitated today, remains on high flow O2 Discussed plan of care at bedside with patient's RN. Objective - Exam Narrative Exam: General: Well-developed elderly female appears in mild distress with agitation HEENT: Normocephalic, PERRLA, normal dentition, normal hearing, appropriate range of motion for neck CV: S1 and S2 appreciated, no murmur, JVD, click or rub appreciated, RRR Pulm: Decreased bilateral lung sounds, high flow nasal cannula in place, increased work of breathing GI: NT ND, BS x4 Skin: CDI, warm MS: Bilateral strength equal, appropriate ROM Psych: Slightly agitated today and anxious Neuro: Awake, follows commands, range of motion with no focal deficits - Constitutional Vitals: Vital Signs - 12hr 03/26/20 03/26/20 03/26/20 08:38 11:37 13:13 Temperature 97.8 F Pulse Rate 151 H Respiratory 20 24 Rate Blood Pressure 155/73 O2 Sat by Pulse 94 94 83 L Oximetry 03/26/20 14:37 Temperature Pulse Rate Respiratory Rate Blood Pressure O2 Sat by Pulse 92 Oximetry - Labs CBC & Chem 7: 03/27/20 08:21 03/27/20 08:21 Labs: Abnormal lab results 03/26/20 03/26/20 Range/Units 05:45 05:45 WBC 34.9 H (4.5-11.0) K/mm3 RDW 15.9 H (13.2-15.2) % Plt Count 579 H (140-440) K/mm3 Sodium 130 L (137-145) mmol/L Chloride 86.0 L (98-107) mmol/L BUN 22 H (7-17) mg/dL Glucose 227 H (65-100) mg/dL HEART Score - HEART Score Troponin: Troponin T < 0.010 ng/mL (0.00-0.029) 03/13/20 16:24
--- NOTE | 2020-03-26 21:57 | Progress Note ---
Assessment and Plan Imp: 1. Covid-19 2. Viral pneumonia 3. COPD exac. 4. Acute respiratory failure, hypoxia 5. Anxiety Rec: 1. Due to her agitation/anxiety decrease Solumedrol to 40mg IV BID; she already finished 10 days of Decadron and 5 of Remdesivir 2. Need for proning re-iterated, 3 hours on 3 hours off; incentive scooter 10x per hour while awake 3. Xanax prn anxiety 4. On Lovenox daily for VTE PPx; D-dimer decreasing and now normal so doubt she has developed PE; hold off on CTA chest 5. Given markedly elevated WBC (could be due to Solumedrol), worsening tachycardia, and worsening CXR will repeat blood cultures and resume ABX with empiric Vanco/Zosyn 6. Continuous pulse ox monitoring is in place; cont. HFNC/NRB for now 7. Check stat [place] level Prognosis guarded; remains critically ill; CCT 31 minutes Plan of care reviewed w/ patient, she understands/agrees; have personally discussed with staffing operations manager Subjective Date of service: 03/26/20 Principal diagnosis: COVID/COPD Interval history: Worsening anxiety noted, receiving Xanax. When I came in the room the patient had her O2 off drinking water with O2 sat of 69%. I replaced HFNC and NRB and O2 sats came up to 90%. Prior to taking her O2 off the saturation was 95% per RN. + SOB. Active Medications Acetaminophen (Acetaminophen 325 Mg Tab) 650 mg PO Q4H PRN PRN Reason: Pain MILD(1-3)/Fever >100.5/CARIAS Last Admin: 03/23/20 18:40 Dose: 650 mg Documented by: Acetaminophen/Butalbital/Caffeine (Butalb/Acetaminophen/Caffeine Tab) 1 tab PO Q4H PRN PRN Reason: Headache Last Admin: 03/26/20 04:27 Dose: 1 tab Documented by: Albuterol (Albuterol 2.5 Mg/3 Ml Nebu) 2.5 mg IH Q4HRT PRN PRN Reason: Shortness Of Breath Alprazolam (Alprazolam 0.5 Mg Tab) 0.5 mg PO Q8H PRN PRN Reason: Anxiety Last Admin: 03/26/20 20:21 Dose: 0.5 mg Documented by: Amitriptyline HCl (Amitriptyline 10 Mg Tab) 10 mg PO QHS [facility] Last Admin: 03/25/20 21:01 Dose: 10 mg Documented by: Ascorbic Acid (Ascorbic Acid 500 Mg Tab) 1,000 mg PO BID [facility] Last Admin: 03/26/20 09:46 Dose: 1,000 mg Documented by: Benzonatate (Benzonatate 100 Mg Cap) 100 mg PO Q8HR [facility] Last Admin: 03/26/20 14:04 Dose: 100 mg Documented by: Duloxetine HCl (Duloxetine 30 Mg Cap) 60 mg PO QDAY [facility] Last Admin: 03/26/20 09:44 Dose: 60 mg Documented by: Enoxaparin Sodium (Enoxaparin 40 Mg/0.4 Ml Inj) 40 mg SUB-Q QDAY@2200 [facility]; Protocol Last Admin: 03/25/20 21:01 Dose: 40 mg Documented by: Ergocalciferol (Ergocalciferol (Vit D2) 50,000 Unit Cap) 50,000 unit PO [place] [facility] Last Admin: 03/20/20 10:41 Dose: 50,000 unit Documented by: Famotidine (Famotidine 10 Mg Tab) 10 mg PO BID [facility] Last Admin: 03/26/20 09:44 Dose: 10 mg Documented by: Gabapentin (Gabapentin 300 Mg Cap) 300 mg PO TID [facility] Last Admin: 03/26/20 20:06 Dose: 300 mg Documented by: Guaifenesin (Guaifenesin Dm 200/20 Mg Oral Liqd 10 Ml) 10 ml PO Q4H PRN PRN Reason: Cough Last Admin: 03/25/20 02:10 Dose: 10 ml Documented by: Hydroxyzine Pamoate (Hydroxyzine Pamoate 50 Mg Cap) 50 mg PO QID [facility] Last Admin: 03/26/20 17:24 Dose: 50 mg Documented by: Piperacillin Sod/Tazobactam Sod (Zosyn/Ns 4.5gm/100ml) 4.5 gm in 100 mls @ 200 mls/hr IV Q8H [facility]; Protocol Lamotrigine (Lamotrigine 100 Mg Tab) 100 mg PO QDAY [facility] Last Admin: 03/26/20 09:44 Dose: 100 mg Documented by: [place] Carbonate ([place] Carbonate 150 Mg Cap) 150 mg PO BID [facility] Last Admin: 03/26/20 09:43 Dose: 150 mg Documented by: Methylprednisolone Sodium Succinate (Methylprednisolone Sod Succinate 125 Mg/2 Ml Inj) 40 mg IV BID [facility] Montelukast Sodium (Montelukast 10 Mg Tab) 10 mg PO DAILY [facility] Last Admin: 03/26/20 09:44 Dose: 10 mg Documented by: Ondansetron HCl (Ondansetron 4 Mg/2 Ml Inj) 4 mg IV Q8H PRN PRN Reason: Nausea And Vomiting Last Admin: 03/26/20 11:23 Dose: 4 mg Documented by: Oxybutynin Chloride (Oxybutynin 5 Mg Tab) 5 mg PO TID [facility] Last Admin: 03/26/20 20:06 Dose: 5 mg Documented by: Phenol (Phenol 1.4% 177 Ml Bottle) 1 spray MM PRN PRN PRN Reason: Sore Throat Last Admin: 03/26/20 00:27 Dose: 1 spray Documented by: Sodium Chloride (Sodium Chloride 0.9% 10 Ml Flush Syringe) 10 ml IV BID [facility] Last Admin: 03/26/20 09:44 Dose: 10 ml Documented by: Sodium Chloride (Sodium Chloride 0.9% 10 Ml Flush Syringe) 10 ml IV PRN PRN PRN Reason: LINE FLUSH Trazodone HCl (Trazodone 100 Mg Tab) 100 mg PO QHS [facility] Last Admin: 03/25/20 21:01 Dose: 100 mg Documented by: Zinc Sulfate (Zinc Sulfate 220 Mg Cap) 220 mg PO BID [facility] Last Admin: 03/26/20 09:51 Dose: 220 mg Documented by: Objective Vital Signs - 12hr 03/26/20 03/26/20 03/26/20 11:37 13:13 14:37 Temperature 97.8 F Pulse Rate 151 H Respiratory 20 24 Rate Blood Pressure 155/73 O2 Sat by Pulse 94 83 L 92 Oximetry 03/26/20 18:33 Temperature 98.2 F Pulse Rate 142 H Respiratory 22 Rate Blood Pressure 120/61 O2 Sat by Pulse 90 Oximetry Constitutional: alert, other (critically ill on HFNC) Eyes: non-icteric Neck: supple Effort: mildly labored Ascultation: Bilateral: wheezes Cardiovascular: other (tachy, RR; no mrg) Gastrointestinal: normoactive bowel sounds, soft, non-tender Integumentary: normal Extremities: no cyanosis, no edema, pink and warm Neurologic: normal mental status, non-focal exam, CN II-XII normal Psychiatric: anxious CBC and BMP: 03/26/20 05:45 03/26/20 05:45 ABG, PT/INR, D-dimer: PT/INR, D-dimer PT 11.8 Sec. (12.2-14.9) L 03/13/20 16:24 INR 0.89 (0.87-1.13) 03/13/20 16:24 D-Dimer 166.32 ng/mlDDU (0-234) 03/26/20 05:45 Abnormal lab findings: Abnormal Labs 03/13/20 03/13/20 03/13/20 16:24 16:24 16:24 WBC MCH RDW 16.8 H Plt Count Lymph % (Auto) 8.5 L [place] % (Auto) Lymph # (Auto) 0.6 L [place] # (Auto) Seg Neutrophils % 84.9 H Seg Neutrophils # PT 11.8 L D-Dimer 234.66 H Sodium 135 L Potassium 3.1 L Chloride Carbon Dioxide BUN Glucose 174 H Lactate Dehydrogenase 277 H C-Reactive Protein 8.00 H Albumin 3.7 L Coronavirus (PCR) SARS-CoV-2 IgG Ab 03/13/20 03/14/20 03/14/20 16:24 08:02 08:02 WBC 3.9 L MCH RDW 16.3 H Plt Count Lymph % (Auto) [place] % (Auto) 9.5 H Lymph # (Auto) 0.7 L [place] # (Auto) Seg Neutrophils % 72.9 H Seg Neutrophils # PT D-Dimer Sodium Potassium Chloride 107.4 H Carbon Dioxide BUN Glucose 174 H 142 H Lactate Dehydrogenase 267 H C-Reactive Protein 8.10 H Albumin Coronavirus (PCR) SARS-CoV-2 IgG Ab 03/14/20 03/14/20 03/14/20 16:58 16:58 Unknown WBC MCH RDW Plt Count Lymph % (Auto) [place] % (Auto) Lymph # (Auto) [place] # (Auto) Seg Neutrophils % Seg Neutrophils # PT D-Dimer Sodium Potassium Chloride Carbon Dioxide BUN Glucose Lactate Dehydrogenase 277 H C-Reactive Protein 2.60 H Albumin Coronavirus (PCR) Positive A SARS-CoV-2 IgG Ab Reactive A 03/16/20 03/16/20 03/16/20 05:18 05:18 10:34 WBC MCH RDW 16.4 H Plt Count Lymph % (Auto) [place] % (Auto) 10.0 H Lymph # (Auto) [place] # (Auto) Seg Neutrophils % Seg Neutrophils # PT D-Dimer 278.32 H Sodium Potassium 3.1 L Chloride Carbon Dioxide BUN Glucose Lactate Dehydrogenase C-Reactive Protein Albumin 3.4 L Coronavirus (PCR) SARS-CoV-2 IgG Ab 03/16/20 03/17/20 03/18/20 10:34 21:24 05:58 WBC 14.8 H MCH RDW 15.8 H Plt Count Lymph % (Auto) 11.5 L [place] % (Auto) Lymph # (Auto) [place] # (Auto) 1.0 H Seg Neutrophils % 81.3 H Seg Neutrophils # 12.0 H PT D-Dimer Sodium Potassium Chloride Carbon Dioxide BUN Glucose 182 H Lactate Dehydrogenase 268 H 268 H C-Reactive Protein 2.10 H 4.90 H Albumin Coronavirus (PCR) SARS-CoV-2 IgG Ab 03/18/20 03/21/20 03/21/20 05:58 05:27 05:27 WBC 14.1 H MCH 27 L RDW 16.1 H Plt Count 513 H Lymph % (Auto) 11.5 L [place] % (Auto) 7.9 H Lymph # (Auto) [place] # (Auto) 1.1 H Seg Neutrophils % 78.4 H Seg Neutrophils # 11.1 H PT D-Dimer Sodium Potassium 2.9 L* Chloride Carbon Dioxide 18 L BUN Glucose Lactate Dehydrogenase C-Reactive Protein Albumin 3.6 L 3.6 L Coronavirus (PCR) SARS-CoV-2 IgG Ab 03/22/20 03/22/20 03/22/20 15:45 15:45 15:45 WBC MCH RDW Plt Count Lymph % (Auto) [place] % (Auto) Lymph # (Auto) [place] # (Auto) Seg Neutrophils % Seg Neutrophils # PT D-Dimer 274.02 H Sodium Potassium Chloride Carbon Dioxide BUN Glucose Lactate Dehydrogenase 259 H C-Reactive Protein 7.60 H Albumin Coronavirus (PCR) SARS-CoV-2 IgG Ab 03/26/20 03/26/20 05:45 05:45 WBC 34.9 H MCH RDW 15.9 H Plt Count 579 H Lymph % (Auto) [place] % (Auto) Lymph # (Auto) [place] # (Auto) Seg Neutrophils % Seg Neutrophils # PT D-Dimer Sodium 130 L Potassium Chloride 86.0 L Carbon Dioxide BUN 22 H Glucose 227 H Lactate Dehydrogenase C-Reactive Protein Albumin Coronavirus (PCR) SARS-CoV-2 IgG Ab Chest x-ray: report reviewed, image reviewed (worsening bilateral infiltrates)
[2020-03-26] MEDS ORDERED: VANCOMYCIN PHARMACY TO DOSE IV SCH (22:00)
[2020-03-26] MEDS: traZODone 100 MG TAB PO SCH (23:15)
[2020-03-26] MEDS ORDERED: VANCOMYCIN 1,250 MG in SODIUM CHLORIDE 0.9% 250ML 250 ML IV ONE (23:15)
[2020-03-26] MEDS: AMITRIPTYLINE 10 MG TAB PO SCH (23:16)
[2020-03-26] MEDS: ENOXAPARIN 40 MG/0.4 ML INJ SUB-Q SCH (23:16)
[2020-03-27] MEDS: methylPREDNISolone Sod Succinate 125 MG/2 ML INJ IV SCH ×2 (00:03→12:50)
[2020-03-27] MEDS: PIPERACIL/TAZOBACTA 4.5/NS 100 4.5 GM/100 ML VIAL IV SCH ×4 (00:06→21:26)
[2020-03-27] MEDS: ASCORBIC ACID 500 MG TAB PO SCH ×3 (00:17→21:28)
[2020-03-27] MEDS: ZINC SULFATE 220 MG CAP PO SCH ×3 (00:30→21:29)
[2020-03-27] MEDS: BENZONATATE 100 MG CAP PO SCH ×3 (05:28→21:28)
[2020-03-27 09:14] LABS: Hematocrit 37.3 % (30.3-42.9); Hemoglobin 12.4 gm/dl (10.1-14.3); Mean Corpuscular HGB Conc 33 % (30-34); Mean Corpuscular Volume 83 fl (79-97); Platelet Count 401 K/mm3 (140-440); Red Blood Count 4.47 M/mm3 (3.65-5.03); Red Cell Distribution Width 16.3 % (13.2-15.2)
[2020-03-27 09:22] LABS: BUN/Creatinine Ratio 20; Blood Urea Nitrogen 16 mg/dL (7-17); Calcium 9.3 mg/dL (8.4-10.2); Hemolysis Index 6
[2020-03-27 10:08] LABS: Band Neutrophils # (Manual) 1.3 K/mm3; RBC Morphology Normal; Total Cells Counted 100
--- NOTE | 2020-03-27 12:27 | Progress Note ---
Assessment and Plan -- Sepsis due to COVID 19 PNA Patient presented with tachypnea, tachycardia, febrile at 102, acute respiratory failure with hypoxia and chest x-ray showed bilateral patchy infiltrate left greater than right. Patient positive for COVID-19 Infectious disease consulted S/p antibiotic therapy 03/13 blood cultures x2 no growth after 5 days -- Pneumonia due to COVID-19 virus 03/14 COVID-19 PCR positive 03/14 Covid 19 antibody positive, not a candidate for convalescent plasma Chest x-ray showed bilateral patchy infiltrate left greater than right. S/p cefepime S/p remdesivir and Decadron Patient now on Solu-Medrol per pulmonology Trend inflammatory markers for wrist education Droplet/contact isolation OOB 3 times daily and as tolerated Supplemental oxygen as needed Anticoagulation per protocol Pulmonary hygiene Continue SPO2 monitoring Prone to sleep as tolerated Vitamin C, D, zinc -- Acute hypoxemic respiratory failure Patient presented with acute hypoxic respiratory failure Supplemental oxygen as needed Continue SPO2 monitoring Pulmonary hygiene -- COPD (chronic obstructive pulmonary disease) with exacerbation Pulmonology consulted, appreciate recommendations Patient is now on Solu-Medrol and high flow O2 Supportive care and scheduled nebs --GERD (gastroesophageal reflux disease) Continue home PPI -- Hyperlipidemia Continue home statin therapy -- Hypertension Continue home antihypertensive regimen Blood pressure monitoring per protocol Hydralazine as needed for SBP greater than 160 -- DVT prophylaxis SCDs to bilateral lower extremities while in bed Lovenox subcu History Interval history: 64 YO Female with COPD, GERD, HTN, HLD, Anxiety, OA, ARDS, asthma (mild,intermittent) presents to the emergency department on 03/13 with 5 days of worsening subjective fever, fatigue, muscle aches, generalized weakness, malaise, dry cough, decreased exercise intolerance, loss of sense of smell and taste, shortness of breath, nausea, multiple loose stools and diminished oral intake. Upon presentation patient was found to be tachypneic, tachycardic and febrile with temperature 101.9 acute hypoxemic respiratory failure with a pulse oximetry on room air of 86% on exertion. Her chest x-ray was compatible with bilateral pneumonia. She was admitted to the hospital service with sepsis as a COVID-19 PUI and infectious disease was consulted. Given patient's persistent hypoxia pulmonology was consulted. patient remains on high flow O2 - weaning in progress HD #2 03/14: With acute hypoxemic respiratory failure, bilateral pneumonia, sepsis, Covid PCR pending, Patient resting comfortably in bed. Patient acknowledges improvement in shortness of breath. Patient denies pain. Day 3 03/15/2020\ Patient on high flow oxygen Continue IV Decadron and remdesivir Day #4 03/16/2020 Patient on high flow oxygen Continue IV Decadron and IV remdesivir Day#5 03/17/2020 Continue IV Decadron and IV remdesivir Patient on 10 L nasal cannula oxygen Day #6 03/18/2020 Patient on 10 L nasal cannula oxygen 03/19/2020 Day #7 Patient on high flow oxygen Day # 8 03/20/20 Patient on high flow oxygen 03/21/20 On High flow oxygen\ 03/22/2020 Patient on high flow oxygen from 40 L Patient does not keep her oxygen consistently as the nursing staff and respiratory therapist to decrease oxygen levels 03/23/2020 Patient still on high flow oxygen Alert and oriented and cheerful 03/24/20 patient is on high flow nasal cannula 03/25: remains on high flow O2 03/26: remain on 40L high flow O2, cont supportive care 03/27: Remains on high flow O2, continue to wean off O2 as tolerated. Continue to provide supportive care and monitor closely Subjective Date of service: 03/27/20 Principal diagnosis: COVID/COPD Interval history: Patient seen and examined. Medical records and medication list reviewed. No acute event overnight noted by the RN. Patient remains on high flow O2 Discussed plan of care at bedside with patient's RN. Objective - Exam Narrative Exam: General: Well-developed elderly female appears in mild distress with agitation HEENT: Normocephalic, PERRLA, normal dentition, normal hearing, appropriate range of motion for neck CV: S1 and S2 appreciated, no murmur, JVD, click or rub appreciated, RRR Pulm: Decreased bilateral lung sounds, high flow nasal cannula in place, increased work of breathing GI: NT ND, BS x4 Skin: CDI, warm MS: Bilateral strength equal, appropriate ROM Psych: Slightly agitated today and anxious Neuro: Awake, follows commands, range of motion with no focal deficits - Constitutional Vitals: Vital Signs - 12hr 03/27/20 03/27/20 04:36 08:00 Temperature 98.4 F Pulse Rate 129 H Respiratory 18 Rate Blood Pressure 133/62 O2 Sat by Pulse 92 92 Oximetry - Labs CBC & Chem 7: 03/28/20 07:51 03/28/20 07:51 Labs: Abnormal lab results 03/27/20 03/27/20 Range/Units 08:21 08:21 WBC 42.1 H* (4.5-11.0) K/mm3 RDW 16.3 H (13.2-15.2) % Seg Neuts % (Manual) 91.0 H (40.0-70.0) % Lymphocytes % (Manual) 2.0 L (13.4-35.0) % Seg Neutrophils # Man 38.3 H (1.8-7.7) K/mm3 Lymphocytes # (Manual) 0.8 L (1.2-5.4) K/mm3 Monocytes # (Manual) 1.7 H (0.0-0.8) K/mm3 Sodium 130 L (137-145) mmol/L Chloride 88.5 L (98-107) mmol/L Carbon Dioxide 35 H (22-30) mmol/L Glucose 326 H (65-100) mg/dL Lactate Dehydrogenase 213 H (91-180) units/L C-Reactive Protein 34.50 H (0.00-1.30) mg/dL HEART Score - HEART Score Troponin: Troponin T < 0.010 ng/mL (0.00-0.029) 03/13/20 16:24
[2020-03-27] MEDS: VANCOMYCIN/NS 1 GM/250 ML 1 GM/250 ML BAG IV SCH ×2 (12:48→22:44)
[2020-03-27] MEDS: MONTELUKAST 10 MG TAB PO SCH (12:49)
[2020-03-27] MEDS: FAMOTIDINE 10 MG TAB PO SCH ×2 (12:49→21:28)
[2020-03-27] MEDS: GABAPENTIN 300 MG CAP PO SCH ×4 (12:49→20:06)
[2020-03-27] MEDS: OXYBUTYNIN 5 MG TAB PO SCH ×4 (12:49→20:06)
[2020-03-27] MEDS: lamoTRIgine 100 MG TAB PO SCH (12:49)
[2020-03-27] MEDS: LITHIUM CARBONATE 150 MG CAP PO SCH ×2 (12:50→21:29)
[2020-03-27] MEDS: DULoxetine 30 MG CAP PO SCH (12:50)
--- NOTE | 2020-03-27 15:01 | Progress Note ---
Assessment and Plan Cultures: Blood culture no growth today SARS CoV2 PCR positive SARS Covid 2 IgG positive Assessment: 64 years old female with history of COPD on 3 L home O2, GERD, hypertension, hyperlipidemia, anxiety, asthma, admitted on 03/13/2020 secondary to 5-day history of generalized malaise, weakness, fever, dry cough, shortness of breath and dyspnea on exertion: #Leukemoid reaction: WBC progressively increasing to 42,000. Patient is off steroids. No diarrhea reported. Repeat chest x-ray with persistent patchy infiltrates. No fever. #Severe COVID pneumonia/Bacterial pneumonia: Markers improving. Completed remdesivir and steroids.. #Acute on chronic hypoxemic respiratory failure: Remains on high flow nasal cannula 100%, 40 L #COPD with exacerbation #Diarrhea: Likely secondary to COVID-19. Recommendations: -Obtain blood cultures, urinalysis, procalcitonin, CRP -Obtain D-dimer -Agree with Zosyn and vancomycin for now -Consider CT of chest abdomen pelvis if source not found Dr. Li rounding tomorrow All laboratory, cultures and imaging were reviewed. Will follow Shayy Quintana MD Infectious Diseases [employer] [facility] ([facility]) M [phone] O [phone] Subjective Date of service: 03/27/20 Principal diagnosis: COVID/COPD Interval history: Patient remains on high flow nasal cannula 100%, 40 L, no diarrhea per nursing staff. Objective - Exam Narrative Exam: Deferred to minimize COVID-19 transmission in the setting of pandemic. - Constitutional Vitals: Vital Signs Temp Pulse Resp BP Pulse Ox 98 F 134 H 18 148/82 99 03/27/20 12:35 03/27/20 12:35 03/27/20 12:35 03/27/20 12:35 03/27/20 13:32 Temperature -Last 24 Hours Temperature 98 F Temperature 98.4 F Temperature 99.8 F Temperature 98.2 F - Labs CBC & Chem 7: 03/27/20 08:21 03/27/20 08:21 Labs: Abnormal lab results 03/27/20 03/27/20 Range/Units 08:21 08:21 WBC 42.1 H* (4.5-11.0) K/mm3 RDW 16.3 H (13.2-15.2) % Seg Neuts % (Manual) 91.0 H (40.0-70.0) % Lymphocytes % (Manual) 2.0 L (13.4-35.0) % Seg Neutrophils # Man 38.3 H (1.8-7.7) K/mm3 Lymphocytes # (Manual) 0.8 L (1.2-5.4) K/mm3 Monocytes # (Manual) 1.7 H (0.0-0.8) K/mm3 Sodium 130 L (137-145) mmol/L Chloride 88.5 L (98-107) mmol/L Carbon Dioxide 35 H (22-30) mmol/L Glucose 326 H (65-100) mg/dL Lactate Dehydrogenase 213 H (91-180) units/L C-Reactive Protein 34.50 H (0.00-1.30) mg/dL
[2020-03-27] MEDS: ERGOCALCIFEROL (VIT D2) 50,000 UNIT CAP PO SCH (16:01)
[2020-03-27] MEDS: ONDANSETRON 4 MG/2 ML INJ IV PRN (18:40)
--- NOTE | 2020-03-27 20:07 | Progress Note ---
Assessment and Plan Imp: 1. Covid-19 2. Viral pneumonia 3. COPD exac. 4. Acute respiratory failure, hypoxia 5. Anxiety Rec: 1. Doubt she is reaping much benefit from corticosteroids at this point, as her ongoing respiratory failure is due to bilateral infiltrates/ARDS and not COPD; b/c of this, and b/c of her agitation/anxiety decrease Solumedrol to 20mg IV BID; she already finished 10 days of Decadron and 5 of Remdesivir 2. Need for proning re-iterated, 3 hours on 3 hours off; incentive scooter 10x per hour while awake 3. Xanax prn anxiety 4. On Lovenox daily for VTE PPx; D-dimer decreasing and now normal so doubt she has developed PE; hold off on CTA chest 5. Given markedly elevated WBC (could be due to Solumedrol), worsening tachycardia, and worsening CXR will repeat blood cultures and resume ABX with empiric Vanco/Zosyn; reported diarrhea to me tonight, so add empiric Flagyl as well 6. Continuous pulse ox monitoring is in place; cont. HFNC for now 7. Check stat [place] level Prognosis guarded; remains critically ill; CCT 31 minutes Plan of care reviewed w/ patient, she understands/agrees Subjective Date of service: 03/27/20 Principal diagnosis: COVID/COPD Interval history: Per RN notes has been doing a better job keeping her O2 in place. Remains on 100% FiO2 and 40LPM, not requiring NRB currently. Less agitated but still fidgety. Awake, alert but very poor historian. Reports "some" diarrhea. Active Medications Acetaminophen (Acetaminophen 325 Mg Tab) 650 mg PO Q4H PRN PRN Reason: Pain MILD(1-3)/Fever >100.5/CARIAS Last Admin: 03/23/20 18:40 Dose: 650 mg Documented by: Albuterol (Albuterol 2.5 Mg/3 Ml Nebu) 2.5 mg IH Q4HRT PRN PRN Reason: Shortness Of Breath Alprazolam (Alprazolam 0.5 Mg Tab) 0.5 mg PO Q8H PRN PRN Reason: Anxiety Last Admin: 03/26/20 20:21 Dose: 0.5 mg Documented by: Amitriptyline HCl (Amitriptyline 10 Mg Tab) 10 mg PO QHS SANDY Last Admin: 03/26/20 23:16 Dose: 10 mg Documented by: Ascorbic Acid (Ascorbic Acid 500 Mg Tab) 1,000 mg PO BID [facility] Last Admin: 03/27/20 12:48 Dose: 1,000 mg Documented by: Benzonatate (Benzonatate 100 Mg Cap) 100 mg PO Q8HR [facility] Last Admin: 03/27/20 16:01 Dose: 100 mg Documented by: Duloxetine HCl (Duloxetine 30 Mg Cap) 60 mg PO QDAY [facility] Last Admin: 03/27/20 12:50 Dose: 60 mg Documented by: Enoxaparin Sodium (Enoxaparin 40 Mg/0.4 Ml Inj) 40 mg SUB-Q QDAY@2200 [facility]; Protocol Last Admin: 03/26/20 23:16 Dose: 40 mg Documented by: Ergocalciferol (Ergocalciferol (Vit D2) 50,000 Unit Cap) 50,000 unit PO [place] [facility] Last Admin: 03/27/20 16:01 Dose: 50,000 unit Documented by: Famotidine (Famotidine 10 Mg Tab) 10 mg PO BID [facility] Last Admin: 03/27/20 12:49 Dose: 10 mg Documented by: Gabapentin (Gabapentin 300 Mg Cap) 300 mg PO TID [facility] Last Admin: 03/27/20 16:09 Dose: Not Given Documented by: Guaifenesin (Guaifenesin Dm 200/20 Mg Oral Liqd 10 Ml) 10 ml PO Q4H PRN PRN Reason: Cough Last Admin: 03/25/20 02:10 Dose: 10 ml Documented by: Hydroxyzine Pamoate (Hydroxyzine Pamoate 50 Mg Cap) 50 mg PO QID [facility] Last Admin: 03/27/20 18:01 Dose: Not Given Documented by: Piperacillin Sod/Tazobactam Sod (Zosyn/Ns 4.5gm/100ml) 4.5 gm in 100 mls @ 200 mls/hr IV Q8H [facility]; Protocol Last Admin: 03/27/20 16:01 Dose: 200 mls/hr Documented by: Vancomycin HCl (Vancomycin/Ns 1 Gm/250 Ml) 1 gm in 250 mls @ 250 mls/hr IV Q12H [facility] Last Admin: 03/27/20 12:48 Dose: 250 mls/hr Documented by: Lamotrigine (Lamotrigine 100 Mg Tab) 100 mg PO QDAY [facility] Last Admin: 03/27/20 12:49 Dose: 100 mg Documented by: [place]ord Carbonate (Buford Carbonate 150 Mg Cap) 150 mg PO BID [facility] Last Admin: 03/27/20 12:50 Dose: 150 mg Documented by: Methylprednisolone Sodium Succinate (Methylprednisolone Sod Succinate 125 Mg/2 M l Inj) 20 mg IV BID [facility] Metronidazole (Metronidazole 500 Mg Tab) 500 mg PO Q8HR [facility]; Protocol Montelukast Sodium (Montelukast 10 Mg Tab) 10 mg PO DAILY [facility] Last Admin: 03/27/20 12:49 Dose: 10 mg Documented by: Ondansetron HCl (Ondansetron 4 Mg/2 Ml Inj) 4 mg IV Q8H PRN PRN Reason: Nausea And Vomiting Last Admin: 03/27/20 18:40 Dose: 4 mg Documented by: Oxybutynin Chloride (Oxybutynin 5 Mg Tab) 5 mg PO TID [facility] Last Admin: 03/27/20 16:09 Dose: Not Given Documented by: Phenol (Phenol 1.4% 177 Ml Bottle) 1 spray MM PRN PRN PRN Reason: Sore Throat Last Admin: 03/26/20 00:27 Dose: 1 spray Documented by: Sodium Chloride (Sodium Chloride 0.9% 10 Ml Flush Syringe) 10 ml IV BID [facility] Last Admin: 03/27/20 12:51 Dose: 10 ml Documented by: Sodium Chloride (Sodium Chloride 0.9% 10 Ml Flush Syringe) 10 ml IV PRN PRN PRN Reason: LINE FLUSH Trazodone HCl (Trazodone 100 Mg Tab) 100 mg PO QHS [facility] Last Admin: 03/26/20 23:15 Dose: 100 mg Documented by: Zinc Sulfate (Zinc Sulfate 220 Mg Cap) 220 mg PO BID [facility] Last Admin: 03/27/20 12:49 Dose: 220 mg Documented by: Objective Vital Signs - 12hr 03/27/20 03/27/20 03/27/20 11:00 12:35 13:32 Temperature 98 F Pulse Rate 134 H Respiratory 18 18 Rate Blood Pressure 148/82 [Right] O2 Sat by Pulse 96 100 99 Oximetry 03/27/20 18:30 Temperature 98.2 F Pulse Rate 119 H Respiratory 18 Rate Blood Pressure 132/68 [Right] O2 Sat by Pulse 97 Oximetry Constitutional: alert, other (critically ill on HFNC) Eyes: non-icteric Neck: supple Effort: mildly labored Ascultation: Bilateral: clear Cardiovascular: other (tachy, RR; no mrg) Gastrointestinal: normoactive bowel sounds, soft, non-tender Integumentary: normal Extremities: no cyanosis, no edema, pink and warm Neurologic: normal mental status, non-focal exam, CN II-XII normal Psychiatric: anxious, other (very fidgety) CBC and BMP: 03/27/20 08:21 03/27/20 08:21 ABG, PT/INR, D-dimer: PT/INR, D-dimer PT 11.8 Sec. (12.2-14.9) L 03/13/20 16:24 INR 0.89 (0.87-1.13) 03/13/20 16:24 D-Dimer 166.32 ng/mlDDU (0-234) 03/26/20 05:45 Abnormal lab findings: Abnormal Labs 03/13/20 03/13/20 03/13/20 16:24 16:24 16:24 WBC MCH RDW 16.8 H Plt Count Lymph % (Auto) 8.5 L [place] % (Auto) Lymph # (Auto) 0.6 L [place] # (Auto) Seg Neutrophils % 84.9 H Seg Neuts % (Manual) Lymphocytes % (Manual) Seg Neutrophils # Seg Neutrophils # Man Lymphocytes # (Manual) Monocytes # (Manual) PT 11.8 L D-Dimer 234.66 H Sodium 135 L Potassium 3.1 L Chloride Carbon Dioxide BUN Glucose 174 H Lactate Dehydrogenase 277 H C-Reactive Protein 8.00 H Albumin 3.7 L Coronavirus (PCR) SARS-CoV-2 IgG Ab 03/13/20 03/14/20 03/14/20 16:24 08:02 08:02 WBC 3.9 L MCH RDW 16.3 H Plt Count Lymph % (Auto) [place] % (Auto) 9.5 H Lymph # (Auto) 0.7 L [place] # (Auto) Seg Neutrophils % 72.9 H Seg Neuts % (Manual) Lymphocytes % (Manual) Seg Neutrophils # Seg Neutrophils # Man Lymphocytes # (Manual) Monocytes # (Manual) PT D-Dimer Sodium Potassium Chloride 107.4 H Carbon Dioxide BUN Glucose 174 H 142 H Lactate Dehydrogenase 267 H C-Reactive Protein 8.10 H Albumin Coronavirus (PCR) SARS-CoV-2 IgG Ab 03/14/20 03/14/20 03/14/20 16:58 16:58 Unknown WBC MCH RDW Plt Count Lymph % (Auto) [place] % (Auto) Lymph # (Auto) [place] # (Auto) Seg Neutrophils % Seg Neuts % (Manual) Lymphocytes % (Manual) Seg Neutrophils # Seg Neutrophils # Man Lymphocytes # (Manual) Monocytes # (Manual) PT D-Dimer Sodium Potassium Chloride Carbon Dioxide BUN Glucose Lactate Dehydrogenase 277 H C-Reactive Protein 2.60 H Albumin Coronavirus (PCR) Positive A SARS-CoV-2 IgG Ab Reactive A 03/16/20 03/16/20 03/16/20 05:18 05:18 10:34 WBC MCH RDW 16.4 H Plt Count Lymph % (Auto) [place] % (Auto) 10.0 H Lymph # (Auto) [place] # (Auto) Seg Neutrophils % Seg Neuts % (Manual) Lymphocytes % (Manual) Seg Neutrophils # Seg Neutrophils # Man Lymphocytes # (Manual) Monocytes # (Manual) PT D-Dimer 278.32 H Sodium Potassium 3.1 L Chloride Carbon Dioxide BUN Glucose Lactate Dehydrogenase C-Reactive Protein Albumin 3.4 L Coronavirus (PCR) SARS-CoV-2 IgG Ab 03/16/20 03/17/20 03/18/20 10:34 21:24 05:58 WBC 14.8 H MCH RDW 15.8 H Plt Count Lymph % (Auto) 11.5 L [place] % (Auto) Lymph # (Auto) [place] # (Auto) 1.0 H Seg Neutrophils % 81.3 H Seg Neuts % (Manual) Lymphocytes % (Manual) Seg Neutrophils # 12.0 H Seg Neutrophils # Man Lymphocytes # (Manual) Monocytes # (Manual) PT D-Dimer Sodium Potassium Chloride Carbon Dioxide BUN Glucose 182 H Lactate Dehydrogenase 268 H 268 H C-Reactive Protein 2.10 H 4.90 H Albumin Coronavirus (PCR) SARS-CoV-2 IgG Ab 03/18/20 03/21/20 03/21/20 05:58 05:27 05:27 WBC 14.1 H MCH 27 L RDW 16.1 H Plt Count 513 H Lymph % (Auto) 11.5 L [place] % (Auto) 7.9 H Lymph # (Auto) [place] # (Auto) 1.1 H Seg Neutrophils % 78.4 H Seg Neuts % (Manual) Lymphocytes % (Manual) Seg Neutrophils # 11.1 H Seg Neutrophils # Man Lymphocytes # (Manual) Monocytes # (Manual) PT D-Dimer Sodium Potassium 2.9 L* Chloride Carbon Dioxide 18 L BUN Glucose Lactate Dehydrogenase C-Reactive Protein Albumin 3.6 L 3.6 L Coronavirus (PCR) SARS-CoV-2 IgG Ab 03/22/20 03/22/20 03/22/20 15:45 15:45 15:45 WBC MCH RDW Plt Count Lymph % (Auto) [place] % (Auto) Lymph # (Auto) [place] # (Auto) Seg Neutrophils % Seg Neuts % (Manual) Lymphocytes % (Manual) Seg Neutrophils # Seg Neutrophils # Man Lymphocytes # (Manual) Monocytes # (Manual) PT D-Dimer 274.02 H Sodium Potassium Chloride Carbon Dioxide BUN Glucose Lactate Dehydrogenase 259 H C-Reactive Protein 7.60 H Albumin Coronavirus (PCR) SARS-CoV-2 IgG Ab 03/26/20 03/26/20 03/27/20 05:45 05:45 08:21 WBC 34.9 H MCH RDW 15.9 H Plt Count 579 H Lymph % (Auto) [place] % (Auto) Lymph # (Auto) [place] # (Auto) Seg Neutrophils % Seg Neuts % (Manual) Lymphocytes % (Manual) Seg Neutrophils # Seg Neutrophils # Man Lymphocytes # (Manual) Monocytes # (Manual) PT D-Dimer Sodium 130 L 130 L Potassium Chloride 86.0 L 88.5 L Carbon Dioxide 35 H BUN 22 H Glucose 227 H 326 H Lactate Dehydrogenase 213 H C-Reactive Protein 34.50 H Albumin Coronavirus (PCR) SARS-CoV-2 IgG Ab 03/27/20 08:21 WBC 42.1 H* MCH RDW 16.3 H Plt Count Lymph % (Auto) [place] % (Auto) Lymph # (Auto) [place] # (Auto) Seg Neutrophils % Seg Neuts % (Manual) 91.0 H Lymphocytes % (Manual) 2.0 L Seg Neutrophils # Seg Neutrophils # Man 38.3 H Lymphocytes # (Manual) 0.8 L Monocytes # (Manual) 1.7 H PT D-Dimer Sodium Potassium Chloride Carbon Dioxide BUN Glucose Lactate Dehydrogenase C-Reactive Protein Albumin Coronavirus (PCR) SARS-CoV-2 IgG Ab Chest x-ray: report reviewed, image reviewed
[2020-03-27] MEDS: ENOXAPARIN 40 MG/0.4 ML INJ SUB-Q SCH (21:27)
[2020-03-27] MEDS: AMITRIPTYLINE 10 MG TAB PO SCH (21:27)
[2020-03-27] MEDS: metroNIDAZOLE 500 MG TAB PO SCH (21:29)
[2020-03-27] MEDS: traZODone 100 MG TAB PO SCH (21:29)
[2020-03-27] MEDS: methylPREDNISolone Sod Succinate 40 MG/1 ML INJ IV SCH (21:30)
[2020-03-28] MEDS: BENZONATATE 100 MG CAP PO SCH ×3 (06:07→22:28)
[2020-03-28] MEDS: metroNIDAZOLE 500 MG TAB PO SCH (06:08)
[2020-03-28] MEDS: PIPERACIL/TAZOBACTA 4.5/NS 100 4.5 GM/100 ML VIAL IV SCH ×2 (06:08→15:42)
[2020-03-28 08:13] LABS: Hematocrit 37.1 % (30.3-42.9); Mean Corpuscular HGB Conc 32 % (30-34); Mean Corpuscular Volume 83 fl (79-97); Platelet Count 386 K/mm3 (140-440); Red Blood Count 4.46 M/mm3 (3.65-5.03); Red Cell Distribution Width 16.3 % (13.2-15.2)
[2020-03-28] MEDS: GABAPENTIN 300 MG CAP PO SCH ×3 (08:32→22:28)
[2020-03-28] MEDS: ACETAMINOPHEN 325 MG TAB PO PRN (08:32)
[2020-03-28 08:33] LABS: Blood Urea Nitrogen 15 mg/dL (7-17); Calcium 9.9 mg/dL (8.4-10.2); Hemolysis Index 11
[2020-03-28] MEDS: OXYBUTYNIN 5 MG TAB PO SCH ×3 (08:33→22:28)
[2020-03-28 08:38] LABS: BUN/Creatinine Ratio 21
[2020-03-28 09:37] LABS: Total Cells Counted 100
[2020-03-28 09:38] LABS: Large Platelets Few; Platelet Estimate Consistent w Auto; RBC Morphology Normal; Toxic Vacuolation Few
[2020-03-28] MEDS: DULoxetine 30 MG CAP PO SCH (10:27)
[2020-03-28] MEDS: ASCORBIC ACID 500 MG TAB PO SCH ×2 (10:27→22:27)
[2020-03-28] MEDS: lamoTRIgine 100 MG TAB PO SCH (10:27)
[2020-03-28] MEDS: LITHIUM CARBONATE 150 MG CAP PO SCH ×2 (10:27→22:28)
[2020-03-28] MEDS: MONTELUKAST 10 MG TAB PO SCH (10:27)
[2020-03-28] MEDS: methylPREDNISolone Sod Succinate 40 MG/1 ML INJ IV SCH ×2 (10:28→22:27)
[2020-03-28] MEDS: VANCOMYCIN/NS 1 GM/250 ML 1 GM/250 ML BAG IV SCH (10:28)
[2020-03-28] MEDS: ZINC SULFATE 220 MG CAP PO SCH ×2 (10:29→22:27)
--- NOTE | 2020-03-28 12:08 | Progress Note ---
Assessment and Plan 64 y/o female with acute on chronic respiratory failure secondary COVID 19 pneumonia. 1. continue to taper steroids to off given increased level of anxiety. Can start on 20 daily tomorrow for 3 days then stop. 2. Would consider lasix therapy again despite only mildly elevated BNP. Having a net negative fluid balance can still help with oxygenation 3. Prone as tolerated during the day and sleep prone at night. 4. Abx therapy per ID 5. Guarded prognosis given prolonged high levels of flow and oxygen requirements. Subjective Date of service: 03/28/20 Principal diagnosis: COVID/COPD Interval history: No acute events. Still on HFNC but down to 35 liters and 95%. Objective Vital Signs - 12hr 03/28/20 03/28/20 04:32 05:37 Temperature 98.0 F Pulse Rate 104 H Respiratory 22 Rate Blood Pressure 144/79 O2 Sat by Pulse 96 93 Oximetry Constitutional: alert, other (critically ill on HFNC) Eyes: non-icteric Neck: supple Effort: mildly labored Ascultation: Bilateral: clear, wheezes Cardiovascular: other (tachy, RR; no mrg) Gastrointestinal: normoactive bowel sounds, soft, non-tender Integumentary: normal Extremities: no cyanosis, no edema, pink and warm Neurologic: normal mental status, non-focal exam, CN II-XII normal Psychiatric: anxious, other (very fidgety) CBC and BMP: 03/28/20 07:51 03/28/20 07:51 ABG, PT/INR, D-dimer: PT/INR, D-dimer PT 11.8 Sec. (12.2-14.9) L 03/13/20 16:24 INR 0.89 (0.87-1.13) 03/13/20 16:24 D-Dimer 1182.25 ng/mlDDU (0-234) H 03/28/20 07:51 Abnormal lab findings: Abnormal Labs 03/13/20 03/13/20 03/13/20 16:24 16:24 16:24 WBC MCH RDW 16.8 H Plt Count Lymph % (Auto) 8.5 L Hopkins % (Auto) Lymph # (Auto) 0.6 L Hopkins # (Auto) Seg Neutrophils % 84.9 H Seg Neuts % (Manual) Lymphocytes % (Manual) Seg Neutrophils # Seg Neutrophils # Man Lymphocytes # (Manual) Monocytes # (Manual) PT 11.8 L D-Dimer 234.66 H Sodium 135 L Potassium 3.1 L Chloride Carbon Dioxide BUN Glucose 174 H Ferritin Lactate Dehydrogenase 277 H C-Reactive Protein 8.00 H Albumin 3.7 L Coronavirus (PCR) SARS-CoV-2 IgG Ab 03/13/20 03/14/20 03/14/20 16:24 08:02 08:02 WBC 3.9 L MCH RDW 16.3 H Plt Count Lymph % (Auto) Hopkins % (Auto) 9.5 H Lymph # (Auto) 0.7 L Hopkins # (Auto) Seg Neutrophils % 72.9 H Seg Neuts % (Manual) Lymphocytes % (Manual) Seg Neutrophils # Seg Neutrophils # Man Lymphocytes # (Manual) Monocytes # (Manual) PT D-Dimer Sodium Potassium Chloride 107.4 H Carbon Dioxide BUN Glucose 174 H 142 H Ferritin Lactate Dehydrogenase 267 H C-Reactive Protein 8.10 H Albumin Coronavirus (PCR) SARS-CoV-2 IgG Ab 03/14/20 03/14/20 03/14/20 16:58 16:58 Unknown WBC MCH RDW Plt Count Lymph % (Auto) Hopkins % (Auto) Lymph # (Auto) Hopkins # (Auto) Seg Neutrophils % Seg Neuts % (Manual) Lymphocytes % (Manual) Seg Neutrophils # Seg Neutrophils # Man Lymphocytes # (Manual) Monocytes # (Manual) PT D-Dimer Sodium Potassium Chloride Carbon Dioxide BUN Glucose Ferritin Lactate Dehydrogenase 277 H C-Reactive Protein 2.60 H Albumin Coronavirus (PCR) Positive A SARS-CoV-2 IgG Ab Reactive A 03/16/20 03/16/20 03/16/20 05:18 05:18 10:34 WBC MCH RDW 16.4 H Plt Count Lymph % (Auto) Hopkins % (Auto) 10.0 H Lymph # (Auto) Hopkins # (Auto) Seg Neutrophils % Seg Neuts % (Manual) Lymphocytes % (Manual) Seg Neutrophils # Seg Neutrophils # Man Lymphocytes # (Manual) Monocytes # (Manual) PT D-Dimer 278.32 H Sodium Potassium 3.1 L Chloride Carbon Dioxide BUN Glucose Ferritin Lactate Dehydrogenase C-Reactive Protein Albumin 3.4 L Coronavirus (PCR) SARS-CoV-2 IgG Ab 03/16/20 03/17/20 03/18/20 10:34 21:24 05:58 WBC 14.8 H MCH RDW 15.8 H Plt Count Lymph % (Auto) 11.5 L Hopkins % (Auto) Lymph # (Auto) Hopkins # (Auto) 1.0 H Seg Neutrophils % 81.3 H Seg Neuts % (Manual) Lymphocytes % (Manual) Seg Neutrophils # 12.0 H Seg Neutrophils # Man Lymphocytes # (Manual) Monocytes # (Manual) PT D-Dimer Sodium Potassium Chloride Carbon Dioxide BUN Glucose 182 H Ferritin Lactate Dehydrogenase 268 H 268 H C-Reactive Protein 2.10 H 4.90 H Albumin Coronavirus (PCR) SARS-CoV-2 IgG Ab 03/18/20 03/21/20 03/21/20 05:58 05:27 05:27 WBC 14.1 H MCH 27 L RDW 16.1 H Plt Count 513 H Lymph % (Auto) 11.5 L Hopkins % (Auto) 7.9 H Lymph # (Auto) Hopkins # (Auto) 1.1 H Seg Neutrophils % 78.4 H Seg Neuts % (Manual) Lymphocytes % (Manual) Seg Neutrophils # 11.1 H Seg Neutrophils # Man Lymphocytes # (Manual) Monocytes # (Manual) PT D-Dimer Sodium Potassium 2.9 L* Chloride Carbon Dioxide 18 L BUN Glucose Ferritin Lactate Dehydrogenase C-Reactive Protein Albumin 3.6 L 3.6 L Coronavirus (PCR) SARS-CoV-2 IgG Ab 03/22/20 03/22/20 03/22/20 15:45 15:45 15:45 WBC MCH RDW Plt Count Lymph % (Auto) Hopkins % (Auto) Lymph # (Auto) Hopkins # (Auto) Seg Neutrophils % Seg Neuts % (Manual) Lymphocytes % (Manual) Seg Neutrophils # Seg Neutrophils # Man Lymphocytes # (Manual) Monocytes # (Manual) PT D-Dimer 274.02 H Sodium Potassium Chloride Carbon Dioxide BUN Glucose Ferritin Lactate Dehydrogenase 259 H C-Reactive Protein 7.60 H Albumin Coronavirus (PCR) SARS-CoV-2 IgG Ab 03/26/20 03/26/20 03/27/20 05:45 05:45 08:21 WBC 34.9 H MCH RDW 15.9 H Plt Count 579 H Lymph % (Auto) Hopkins % (Auto) Lymph # (Auto) Hopkins # (Auto) Seg Neutrophils % Seg Neuts % (Manual) Lymphocytes % (Manual) Seg Neutrophils # Seg Neutrophils # Man Lymphocytes # (Manual) Monocytes # (Manual) PT D-Dimer Sodium 130 L 130 L Potassium Chloride 86.0 L 88.5 L Carbon Dioxide 35 H BUN 22 H Glucose 227 H 326 H Ferritin Lactate Dehydrogenase 213 H C-Reactive Protein 34.50 H Albumin Coronavirus (PCR) SARS-CoV-2 IgG Ab 03/27/20 03/27/20 03/27/20 08:21 18:45 18:45 WBC 42.1 H* MCH RDW 16.3 H Plt Count Lymph % (Auto) Hopkins % (Auto) Lymph # (Auto) Hopkins # (Auto) Seg Neutrophils % Seg Neuts % (Manual) 91.0 H Lymphocytes % (Manual) 2.0 L Seg Neutrophils # Seg Neutrophils # Man 38.3 H Lymphocytes # (Manual) 0.8 L Monocytes # (Manual) 1.7 H PT D-Dimer Sodium Potassium Chloride Carbon Dioxide BUN Glucose Ferritin 400.5 H Lactate Dehydrogenase C-Reactive Protein 49.70 H Albumin Coronavirus (PCR) SARS-CoV-2 IgG Ab 03/28/20 03/28/20 03/28/20 07:51 07:51 07:51 WBC 32.2 H MCH 27 L RDW 16.3 H Plt Count Lymph % (Auto) Hopkins % (Auto) Lymph # (Auto) Hopkins # (Auto) Seg Neutrophils % Seg Neuts % (Manual) 86.0 H Lymphocytes % (Manual) 10.0 L Seg Neutrophils # Seg Neutrophils # Man 27.7 H Lymphocytes # (Manual) Monocytes # (Manual) 1.3 H PT D-Dimer 1182.25 H Sodium Potassium Chloride Carbon Dioxide BUN Glucose Ferritin 514.4 H Lactate Dehydrogenase C-Reactive Protein Albumin Coronavirus (PCR) SARS-CoV-2 IgG Ab 03/28/20 07:51 WBC MCH RDW Plt Count Lymph % (Auto) Hopkins % (Auto) Lymph # (Auto) Hopkins # (Auto) Seg Neutrophils % Seg Neuts % (Manual) Lymphocytes % (Manual) Seg Neutrophils # Seg Neutrophils # Man Lymphocytes # (Manual) Monocytes # (Manual) PT D-Dimer Sodium 136 L Potassium Chloride 93.0 L Carbon Dioxide 35 H BUN Glucose 243 H Ferritin Lactate Dehydrogenase C-Reactive Protein Albumin Coronavirus (PCR) SARS-CoV-2 IgG Ab
--- NOTE | 2020-03-28 14:10 | Progress Note ---
Assessment and Plan Cultures: Blood culture no growth SARS CoV2 PCR positive SARS Covid 2 IgG positive 03/26/2020 blood culture: no growth Assessment: 64 years old female with history of COPD on 3 L home O2, GERD, hypertension, hyperlipidemia, anxiety, asthma, admitted on 03/13/2020 secondary to 5-day history of generalized malaise, weakness, fever, dry cough, shortness of breath and dyspnea on exertion: #Severe COVID pneumonia/Bacterial pneumonia: Chest x-ray showed bilateral patchy infiltrate left greater than right. Ferritin was normal. D-dimer mildly elevated. Procalcitonin elevated likely a bacterial component. Completed cefepime. Completed remdesivir and decadron. SARS CoV-2 IgG is positive, patient is not a candidate for COVID convalescent plasma #Acute on chronic hypoxemic respiratory failure: Patient is on 3 L at home, currently on HFNC. #COPD with exacerbation #Diarrhea: Likely secondary to COVID-19. Recommendations: -Completed remdesivir and decadron -Continue steroids, now on solumedrol per pulmonary -leukemoid reaction, worsening CRP and elevated procalcitonin, continue empiric abx: Cefepime (Zosyn d/noemí) + Vancomycin -follow up cultures, if WBC remains elevated, may need to get CT abdomen pelvis with contrast Angel Li MD, FACP [facility] O: [phone] F: [phone] Subjective Date of service: 03/28/20 Principal diagnosis: COVID/COPD Interval history: Afebrile. Remains on high flow. Objective - Exam Narrative Exam: Physical Exam (reviewed in chart to minimize risk of transmission) Constitutional: deferred Head, Ears, Nose: deferred Eyes: deferred Neck: deferred Oral: deferred Cardiovascular: deferred Respiratory: deferred GI: deferred Musculoskeletal: deferred Skin: deferred Hem/Lymphatic: deferred Psych: deferred Neurological: deferred - Constitutional Vitals: Vital Signs Temp Pulse Resp BP Pulse Ox 98.0 F 104 H 22 144/79 93 03/28/20 05:37 03/28/20 05:37 03/28/20 05:37 03/28/20 05:37 03/28/20 05:37 Temperature -Last 24 Hours Temperature 98.0 F Temperature 99.0 F Temperature 98.2 F - Labs CBC & Chem 7: 03/28/20 07:51 03/28/20 07:51 Labs: Abnormal lab results 03/27/20 03/27/20 03/28/20 Range/Units 18:45 18:45 07:51 WBC (4.5-11.0) K/mm3 MCH (28-32) pg RDW (13.2-15.2) % Seg Neuts % (Manual) (40.0-70.0) % Lymphocytes % (Manual) (13.4-35.0) % Seg Neutrophils # Man (1.8-7.7) K/mm3 Monocytes # (Manual) (0.0-0.8) K/mm3 D-Dimer 1182.25 H (0-234) ng/mlDDU Sodium (137-145) mmol/L Chloride (98-107) mmol/L Carbon Dioxide (22-30) mmol/L Glucose (65-100) mg/dL Ferritin 400.5 H (10.0-200.0) ng/mL C-Reactive Protein 49.70 H (0.00-1.30) mg/dL 03/28/20 03/28/20 03/28/20 Range/Units 07:51 07:51 07:51 WBC 32.2 H (4.5-11.0) K/mm3 MCH 27 L (28-32) pg RDW 16.3 H (13.2-15.2) % Seg Neuts % (Manual) 86.0 H (40.0-70.0) % Lymphocytes % (Manual) 10.0 L (13.4-35.0) % Seg Neutrophils # Man 27.7 H (1.8-7.7) K/mm3 Monocytes # (Manual) 1.3 H (0.0-0.8) K/mm3 D-Dimer (0-234) ng/mlDDU Sodium 136 L (137-145) mmol/L Chloride 93.0 L (98-107) mmol/L Carbon Dioxide 35 H (22-30) mmol/L Glucose 243 H (65-100) mg/dL Ferritin 514.4 H (10.0-200.0) ng/mL C-Reactive Protein (0.00-1.30) mg/dL
[2020-03-28] MEDS: FAMOTIDINE 10 MG TAB PO SCH (15:41)
[2020-03-28] MEDS: CEFEPIME/NS 2 GM/100 ML 2 GM/100 ML BAG IV SCH (15:45)
--- NOTE | 2020-03-28 18:05 | Progress Note ---
<EDUARDO SUAREZ - Last Filed: 03/28/20 18:23> Assessment and Plan - Patient Problems (1) Sepsis Current Visit: Yes Status: Acute Qualifiers: Sepsis acute organ dysfunction status: with acute organ dysfunction Severe sepsis acute organ dysfunction type: acute respiratory failure Acute respiratory failure type: with hypoxia Severe sepsis shock status: without septic shock Plan to address problem: Patient presented with tachypnea, tachycardia, febrile at 102, acute respiratory failure with hypoxia and chest x-ray showed bilateral patchy infiltrate left greater than right. Patient positive for COVID-19 Infectious disease consulted S/p antibiotic therapy 03/13 blood cultures x2 no growth after 5 days (2) Pneumonia due to COVID-19 virus Current Visit: Yes Status: Acute Plan to address problem: 03/14 COVID-19 PCR positive 03/14 Covid 19 antibody positive, not a candidate for comments of plasma Chest x-ray showed bilateral patchy infiltrate left greater than right. S/p cefepime S/p remdesivir and Decadron Patient now on Solu-Medrol per pulmonology Trend inflammatory markers for wrist education Droplet/contact isolation OOB 3 times daily and as tolerated Supplemental oxygen as needed Anticoagulation per protocol Pulmonary hygiene Continue SPO2 monitoring Prone to sleep as tolerated Vitamin C, D, zinc (3) Acute hypoxemic respiratory failure Current Visit: Yes Status: Acute Plan to address problem: Patient presented with acute hypoxic respiratory failure Supplemental oxygen as needed Continue SPO2 monitoring Pulmonary hygiene (4) Leukocytosis Current Visit: Yes Status: Acute Plan to address problem: 03/18 WBC 14.8, 03/26 WBC 34.9, 03/27 WBC 42.1 Patient is on steroid therapy Antibiotics adjusted by infectious disease given refractory leukemoid reaction Per infectious disease consider CT abdomen pelvis with contrast if WBCs remain elevated Trend CBC (5) Hyponatremia Current Visit: Yes Status: Acute Plan to address problem: 03/26 sodium 130, 03/28 sodium 136 Corrected sodium 132, 134 Pseudohyponatremia (6) Hypochloremic alkalosis Current Visit: Yes Status: Acute Plan to address problem: 03/26 chloride 86, 03/28 chloride 93 03/27 CO2 35, 03/28 CO2 35 Patient remains on high flow nasal cannula (7) Elevated d-dimer Current Visit: Yes Status: Acute Plan to address problem: 03/26 D-dimer 166, 03/28 D-dimer 1182 Anticoagulation per protocol 03/20 CTA chest pending 03/28 bilateral lower extremity Doppler ultrasound pending (8) Hypertension Current Visit: Yes Status: Chronic Qualifiers: Hypertension type: essential hypertension Qualified Code(s): I10 - Essential (primary) hypertension Plan to address problem: Continue home antihypertensive regimen Blood pressure monitoring per protocol Hydralazine as needed for SBP greater than 160 (9) Hyperlipidemia Current Visit: Yes Status: Chronic Qualifiers: Hyperlipidemia type: mixed hyperlipidemia Qualified Code(s): E78.2 - Mixed hyperlipidemia Plan to address problem: Continue home statin therapy (10) GERD (gastroesophageal reflux disease) Current Visit: Yes Status: Chronic Qualifiers: Esophagitis presence: without esophagitis Qualified Code(s): K21.9 - Gastro-esophageal reflux disease without esophagitis Plan to address problem: Continue home PPI (11) COPD (chronic obstructive pulmonary disease) Current Visit: Yes Status: Chronic Qualifiers: Chronic bronchitis type: unspecified Plan to address problem: Pulmonology consulted, appreciate recommendations Patient is now on Solu-Medrol Supportive care (12) DVT prophylaxis Current Visit: Yes Status: Acute Plan to address problem: SCDs to bilateral lower extremities while in bed Lovenox subcu History Interval history: 64 YO Female with COPD, GERD, HTN, HLD, Anxiety, OA, ARDS, asthma (mild,intermittent) presents to the emergency department on 03/13 with 5 days of worsening subjective fever, fatigue, muscle aches, generalized weakness, malaise, dry cough, decreased exercise intolerance, loss of sense of smell and taste, shortness of breath, nausea, multiple loose stools and diminished oral intake. Upon presentation patient was found to be tachypneic, tachycardic and febrile with temperature 101.9 acute hypoxemic respiratory failure with a pulse oximetry on room air of 86% on exertion. Her chest x-ray was compatible with bilateral pneumonia. She was admitted to the hospital service with sepsis as a COVID-19 PUI and infectious disease was consulted. Given patient's persistent hypoxia pulmonology was consulted. Today on examination patient is on 35 L 95% high flow nasal cannula. Infectious disease has adjusted antibiotics. Pulmonology has started to taper up her steroid and recommends Lasix. Repeat labs in the a.m. HD #2 03/14: With acute hypoxemic respiratory failure, bilateral pneumonia, sepsis, Covid PCR pending, Patient resting comfortably in bed. Patient acknowledges improvement in shortness of breath. Patient denies pain. Day 3 03/15/2020: Patient on high flow oxygenContinue IV Decadron and remdesivir Day #4 03/16/2020: Patient on high flow oxygen, continue IV Decadron and IV remdesivir Day#5 03/17/2020: Continue IV Decadron and IV remdesivir. Patient on 10 L nasal cannula oxygen Day #6 03/18/2020: Patient on 10 L nasal cannula oxygen Day #7 03/19/2020: Patient on high flow oxygen Day # 8 03/20/20: Patient on high flow oxygen 03/21/20: On High flow oxygen 03/22/2020: Patient on high flow oxygen from 40 L Patient does not keep her oxygen consistently as the nursing staff and res piratory therapist to decrease oxygen levels 03/23/2020:Patient still on high flow oxygen, Alert and oriented and cheerful 03/24/20: Patient is on high flow nasal cannula 03/25: remains on high flow O2 03/26: remain on 40L high flow O2, cont supportive care 03/27: Remains on high flow O2, continue to wean off O2 as tolerated. Continue to provide supportive care and monitor closely Hospitalist Physical - Constitutional Vitals: Temp Pulse Resp BP Pulse Ox 98.0 F 124 H 24 137/69 94 03/28/20 11:40 03/28/20 11:40 03/28/20 11:40 03/28/20 11:40 03/28/20 14:00 General appearance: Present: mild distress, well-nourished - EENT Eyes: Present: PERRL, EOM intact ENT: hearing intact, clear oral mucosa, dentition normal - Neck Neck: Present: normal ROM - Respiratory Respiratory effort: normal Respiratory: bilateral: diminished - Cardiovascular Rhythm: regular Heart Sounds: Present: S1 & S2. Absent: systolic murmur, diastolic murmur - Extremities Extremities: no ischemia, pulses intact, pulses symmetrical, No edema, normal temperature, normal color, Full ROM Peripheral Pulses: within normal limits - Abdominal General gastrointestinal: soft, non-tender, non-distended, normal bowel sounds - Integumentary Integumentary: Present: clear, warm, dry - Psychiatric Psychiatric: appropriate mood/affect, cooperative - Neurologic Neurologic: CNII-XII intact, no focal deficits, moves all extremities - Allied Health Allied health notes reviewed: nursing HEART Score - HEART Score Troponin: Troponin T < 0.010 ng/mL (0.00-0.029) 03/13/20 16:24 Results - Labs CBC & Chem 7: 03/28/20 07:51 03/28/20 07:51 Labs: Laboratory Last Values WBC 32.2 K/mm3 (4.5-11.0) H 03/28/20 07:51 RBC 4.46 M/mm3 (3.65-5.03) 03/28/20 07:51 Hgb 12.0 gm/dl (10.1-14.3) 03/28/20 07:51 Hct 37.1 % (30.3-42.9) 03/28/20 07:51 MCV 83 fl (79-97) 03/28/20 07:51 MCH 27 pg (28-32) L 03/28/20 07:51 MCHC 32 % (30-34) 03/28/20 07:51 RDW 16.3 % (13.2-15.2) H 03/28/20 07:51 Plt Count 386 K/mm3 (140-440) 03/28/20 07:51 Lymph % (Auto) 11.5 % (13.4-35.0) L 03/21/20 05:27 Lynn % (Auto) 7.9 % (0.0-7.3) H 03/21/20 05:27 Eos % (Auto) 2.0 % (0.0-4.3) 03/21/20 05:27 Baso % (Auto) 0.2 % (0.0-1.8) 03/21/20 05:27 Lymph # (Auto) 1.6 K/mm3 (1.2-5.4) 03/21/20 05:27 Lynn # (Auto) 1.1 K/mm3 (0.0-0.8) H 03/21/20 05:27 Eos # (Auto) 0.3 K/mm3 (0.0-0.4) 03/21/20 05:27 Baso # (Auto) 0.0 K/mm3 (0.0-0.1) 03/21/20 05:27 Add Manual Diff Complete 03/28/20 07:51 Total Counted 100 03/28/20 07:51 Seg Neutrophils % 78.4 % (40.0-70.0) H 03/21/20 05:27 Seg Neuts % (Manual) 86.0 % (40.0-70.0) H 03/28/20 07:51 Band Neutrophils % 3.0 % 03/27/20 08:21 Lymphocytes % (Manual) 10.0 % (13.4-35.0) L 03/28/20 07:51 Monocytes % (Manual) 4.0 % (0.0-7.3) 03/28/20 07:51 Nucleated RBC % Not Reportable 03/28/20 07:51 Seg Neutrophils # 11.1 K/mm3 (1.8-7.7) H 03/21/20 05:27 Seg Neutrophils # Man 27.7 K/mm3 (1.8-7.7) H 03/28/20 07:51 Band Neutrophils # 0.0 K/mm3 03/28/20 07:51 Lymphocytes # (Manual) 3.2 K/mm3 (1.2-5.4) 03/28/20 07:51 Abs React Lymphs (Man) 0.0 K/mm3 03/28/20 07:51 Monocytes # (Manual) 1.3 K/mm3 (0.0-0.8) H 03/28/20 07:51 Eosinophils # (Manual) 0.0 K/mm3 (0.0-0.4) 03/28/20 07:51 Basophils # (Manual) 0.0 K/mm3 (0.0-0.1) 03/28/20 07:51 Metamyelocytes # 0.0 K/mm3 03/28/20 07:51 Myelocytes # 0.0 K/mm3 03/28/20 07:51 Promyelocytes # 0.0 K/mm3 03/28/20 07:51 Blast Cells # 0.0 K/mm3 03/28/20 07:51 WBC Morphology Not Reportable 03/28/20 07:51 Hypersegmented Neuts Not Reportable 03/28/20 07:51 Hyposegmented Neuts Not Reportable 03/28/20 07:51 Hypogranular Neuts Not Reportable 03/28/20 07:51 Smudge Cells Not Reportable 03/28/20 07:51 Toxic Granulation Not Reportable 03/28/20 07:51 Toxic Vacuolation Few 03/28/20 07:51 Dohle Bodies Not Reportable 03/28/20 07:51 Pelger-Huet Anomaly Not Reportable 03/28/20 07:51 Natan Rods Not Reportable 03/28/20 07:51 Platelet Estimate Consistent w auto 03/28/20 07:51 Clumped Platelets Not Reportable 03/28/20 07:51 Plt Clumps, EDTA Not Reportable 03/28/20 07:51 Large Platelets Few 03/28/20 07:51 Giant Platelets Not Reportable 03/28/20 07:51 Platelet Satelliting Not Reportable 03/28/20 07:51 Plt Morphology Comment Not Reportable 03/28/20 07:51 RBC Morphology Normal 03/28/20 07:51 Dimorphic RBCs Not Reportable 03/28/20 07:51 Polychromasia Not Reportable 03/28/20 07:51 Hypochromasia Not Reportable 03/28/20 07:51 Poikilocytosis Not Reportable 03/28/20 07:51 Anisocytosis Not Reportable 03/28/20 07:51 Microcytosis Not Reportable 03/28/20 07:51 Macrocytosis Not Reportable 03/28/20 07:51 Spherocytes Not Reportable 03/28/20 07:51 Pappenheimer Bodies Not Reportable 03/28/20 07:51 Sickle Cells Not Reportable 03/28/20 07:51 Target Cells Not Reportable 03/28/20 07:51 Tear Drop Cells Not Reportable 03/28/20 07:51 Ovalocytes Not Reportable 03/28/20 07:51 Helmet Cells Not Reportable 03/28/20 07:51 [place] Bodies Not Reportable 03/28/20 07:51 [place] Rings Not Reportable 03/28/20 07:51 Alexia Cells Not Reportable 03/28/20 07:51 Bite Cells Not Reportable 03/28/20 07:51 Crenated Cell Not Reportable 03/28/20 07:51 Elliptocytes Not Reportable 03/28/20 07:51 Acanthocytes (Spur) Not Reportable 03/28/20 07:51 Rouleaux Not Reportable 03/28/20 07:51 Hemoglobin C Crystals Not Reportable 03/28/20 07:51 Schistocytes Not Reportable 03/28/20 07:51 Malaria parasites Not Reportable 03/28/20 07:51 [place]aston Bodies Not Reportable 03/28/20 07:51 Hem Pathologist Commnt No 03/28/20 07:51 PT 11.8 Sec. (12.2-14.9) L 03/13/20 16:24 INR 0.89 (0.87-1.13) 03/13/20 16:24 D-Dimer 1182.25 ng/mlDDU (0-234) H 03/28/20 07:51 Sodium 136 mmol/L (137-145) L 03/28/20 07:51 Potassium 4.4 mmol/L (3.6-5.0) 03/28/20 07:51 Chloride 93.0 mmol/L (98-107) L 03/28/20 07:51 Carbon Dioxide 35 mmol/L (22-30) H 03/28/20 07:51 Anion Gap 12 mmol/L 03/28/20 07:51 BUN 15 mg/dL (7-17) 03/28/20 07:51 Creatinine 0.7 mg/dL (0.6-1.2) 03/28/20 07:51 Estimated GFR > 60 ml/min 03/28/20 07:51 BUN/Creatinine Ratio 21 % 03/28/20 07:51 Glucose 243 mg/dL (65-100) H 03/28/20 07:51 Lactic Acid 1.70 mmol/L (0.7-2.0) 03/13/20 16:24 Calcium 9.9 mg/dL (8.4-10.2) 03/28/20 07:51 Magnesium 1.80 mg/dL (1.7-2.3) 03/13/20 16:24 Total Bilirubin 0.30 mg/dL (0.1-1.2) 03/21/20 05:27 Ferritin 514.4 ng/mL (10.0-200.0) H 03/28/20 07:51 Direct Bilirubin < 0.2 mg/dL (0-0.2) 03/16/20 05:18 Indirect Bilirubin 0.1 mg/dL 03/16/20 05:18 AST 12 units/L (5-40) 03/21/20 05:27 ALT 8 units/L (7-56) 03/21/20 05:27 Alkaline Phosphatase 72 units/L (35-129) 03/21/20 05:27 Lactate Dehydrogenase 213 units/L (91-180) H 03/27/20 08:21 Total Creatine Kinase 42 units/L (30-135) 03/13/20 16:24 Troponin T < 0.010 ng/mL (0.00-0.029) 03/13/20 16:24 C-Reactive Protein 49.70 mg/dL (0.00-1.30) H 03/27/20 18:45 NT-Pro-B Natriuret Pep 220.0 pg/mL (0-900) 03/25/20 15:14 Total Protein 7.3 g/dL (6.3-8.2) 03/21/20 05:27 Albumin 3.6 g/dL (3.9-5) L 03/21/20 05:27 Albumin/Globulin Ratio 1.0 % 03/21/20 05:27 Procalcitonin 1.16 ng/mL (<0.15) 03/27/20 18:45 Urine Color Yellow (Yellow) 03/14/20 02:00 Urine Turbidity Clear (Clear) 03/14/20 02:00 Urine pH 7.0 (5.0-7.0) 03/14/20 02:00 Ur Specific [place] 1.014 (1.003-1.030) 03/14/20 02:00 Urine Protein 30 mg/dl mg/dL (Negative) 03/14/20 02:00 Urine Glucose (UA) Neg mg/dL (Negative) 03/14/20 02:00 Urine Ketones Tr mg/dL (Negative) 03/14/20 02:00 Urine Blood Neg (Negative) 03/14/20 02:00 Urine Nitrite Neg (Negative) 03/14/20 02:00 Urine Bilirubin Neg (Negative) 03/14/20 02:00 Urine Urobilinogen < 2.0 mg/dL (<2.0) 03/14/20 02:00 Ur Leukocyte Esterase Neg (Negative) 03/14/20 02:00 Urine WBC (Auto) 1.0 /HPF (0.0-6.0) 03/14/20 02:00 Urine RBC (Auto) 1.0 /HPF (0.0-6.0) 03/14/20 02:00 U Epithel Cells (Auto) 1.0 /HPF (0-13.0) 03/14/20 02:00 Coronavirus (PCR) Positive (Negative) A 03/14/20 Unknown SARS-CoV-2 IgG Ab Reactive (NonReactive) A 03/14/20 16:58 Microbiology: Microbiology 03/26/20 22:58 Peripheral/Venous Blood Culture - Preliminary NO GROWTH AFTER 24 HOURS 03/26/20 23:20 Peripheral/Venous Blood Culture - Preliminary NO GROWTH AFTER 24 HOURS Sore[place]/IV: Voiding Method Bedside Commode IV Catheter Type [Right Wrist] INT / Saline Lock IV Catheter Type [Right Hand] INT / Saline Lock IV Catheter Type [Left Upper INT / Saline Lock arm] IV Catheter Type [Left Peripheral IV Antecubital] Active Medications - Current Medications Current Medications: Generic Name Dose Route Start Last Admin Trade Name Freq PRN Reason Stop Dose Admin Acetaminophen 650 mg 03/13/20 17:21 03/28/20 08:32 Acetaminophen 325 Mg Tab PO 650 mg Q4H PRN Administration Pain MILD(1-3)/Fever >100.5/CARIAS Albuterol 2.5 mg 03/13/20 17:21 Albuterol 2.5 Mg/3 Ml Nebu IH Q4HRT PRN Shortness Of Breath Alprazolam 0.5 mg 03/25/20 20:27 03/26/20 20:21 Alprazolam 0.5 Mg Tab PO 0.5 mg Q8H PRN Administration Anxiety Amitriptyline HCl 10 mg 03/25/20 22:00 03/27/20 21:27 Amitriptyline 10 Mg Tab PO 10 mg QHS SANDY Administration Ascorbic Acid 1,000 mg 03/26/20 10:00 03/28/20 10:27 Ascorbic Acid 500 Mg Tab PO 1,000 mg BID SANDY Administration Benzonatate 100 mg 03/13/20 22:00 03/28/20 15:42 Benzonatate 100 Mg Cap PO 100 mg Q8HR SANDY Administration Duloxetine HCl 60 mg 03/14/20 10:00 03/28/20 10:27 Duloxetine 30 Mg Cap PO 60 mg QDAY SANDY Administration Enoxaparin Sodium 40 mg 03/23/20 22:00 03/27/20 21:27 Enoxaparin 40 Mg/0.4 Ml Inj SUB-Q 40 mg QDAY@2200 SANDY Administration Protocol Ergocalciferol 50,000 unit 03/20/20 10:00 03/27/20 16:01 Ergocalciferol (Vit D2) 50,000 Unit Cap PO 50,000 unit [place] SANDY Administration Famotidine 10 mg 03/13/20 22:00 03/28/20 15:41 Famotidine 10 Mg Tab PO 10 mg BID SANDY Administration Gabapentin 300 mg 03/13/20 20:00 03/28/20 15:41 Gabapentin 300 Mg Cap PO 300 mg TID SANDY Administration Guaifenesin 10 ml 03/13/20 17:24 03/25/20 02:10 Guaifenesin Dm 200/20 Mg Oral Liqd 10 Ml PO 10 ml Q4H PRN Administration Cough Hydroxyzine Pamoate 50 mg 03/13/20 22:00 03/28/20 15:43 Hydroxyzine Pamoate 50 Mg Cap PO 50 mg QID SANDY Administration Vancomycin HCl 1 gm in 250 mls @ 250 mls/hr 03/27/20 10:00 03/28/20 10:28 Vancomycin/Ns 1 Gm/250 Ml IV 250 mls/hr Q12H SANDY Administration Cefepime HCl 2 gm in 100 mls @ 200 mls/hr 03/28/20 15:00 03/28/20 15:45 Cefepime/Ns 2 Gm/100 Ml IV 200 mls/hr Q12HR SANDY Administration Protocol Lamotrigine 100 mg 03/14/20 10:00 03/28/20 10:27 Lamotrigine 100 Mg Tab PO 100 mg QDAY SANDY Administration [place] Carbonate 150 mg 03/13/20 22:00 03/28/20 10:27 [place] Carbonate 150 Mg Cap PO 150 mg BID SANDY Administration Methylprednisolone Sodium Succinate 20 mg 03/27/20 22:00 03/28/20 10:28 Methylprednisolone Sod Succinate 40 Mg/1 Ml Inj IV 20 mg BID SANDY Administration Montelukast Sodium 10 mg 03/14/20 10:00 03/28/20 10:27 Montelukast 10 Mg Tab PO 10 mg DAILY SANDY Administration Ondansetron HCl 4 mg 03/13/20 17:21 03/27/20 18:40 Ondansetron 4 Mg/2 Ml Inj IV 4 mg Q8H PRN Administration Nausea And Vomiting Oxybutynin Chloride 5 mg 03/13/20 20:00 03/28/20 15:42 Oxybutynin 5 Mg Tab PO 5 mg TID SANDY Administration Phenol 1 spray 03/25/20 20:05 03/26/20 00:27 Phenol 1.4% 177 Ml Bottle MM 1 spray PRN PRN Administration Sore Throat Sodium Chloride 10 ml 03/13/20 22:00 03/28/20 10:28 Sodium Chloride 0.9% 10 Ml Flush Syringe IV 10 ml BID SANDY Administration Sodium Chloride 10 ml 03/13/20 17:21 Sodium Chloride 0.9% 10 Ml Flush Syringe IV PRN PRN LINE FLUSH Trazodone HCl 100 mg 03/13/20 22:00 03/27/20 21:29 Trazodone 100 Mg Tab PO 100 mg QHS SANDY Administration Zinc Sulfate 220 mg 03/26/20 10:00 03/28/20 10:29 Zinc Sulfate 220 Mg Cap PO 220 mg BID SANDY Administration Nutrition/Malnutrition Assess - Dietary Evaluation Nutrition/Malnutrition Findings: Nutrition Notes Start: 03/14/20 15:39 Freq: Status: Active Protocol: Document 03/24/20 13:42 (Rec: 03/24/20 13:50 [email or web address]) Nutrition Notes Initial or Follow up Reassessment Current Diagnosis COPD,Sepsis,Hypertension, Hyperlipidemia Other Pertinent Diagnosis COVID-19, Pneu, Anxiety, GERD, OA, ARF, bronchitis Current Diet Cardiac Labs/Tests Reviewed Pertinent Medications sOLU-mEDROL Height 5 ft 1 in Weight 64.9 kg [place] Body Weight (kg) 47.72 BMI 27.0 Weight Status Overweight Subjective/Other Information FU for intakes. Pt did not answer phone x2. Per tech, pt asked for Ensures today. Pt did not eat breakfast and RN and tech are unsure about lunch. Percent of energy/protein needs met: 48%/65% Burn Absent Trauma Absent GI Symptoms None Food Allergy No Current % PO Poor (25-49%) Minimum of two criteria No Energy Intake (non-severe) <75% Estimated Energy Requirement >7 days #1 Nutrition Diagnosis Inadequate oral intake Diagnosis Progress(for reassessment Continues documentation) Is patient on ventilator? No Is Patient Ambulatory and/or Out of Bed Yes REE-([place]. or-ambulatory/OOB) [ [id number] [id number]] Calculation Used for Recommendations Geovani Monroy Additional Notes Protein: 1-1.2 g/kg (62-74g) Fluid: 1 ml/kcal Nutrition Intervention Change Diet Order: Continue Add Supplement/Snack (indicate name/kcal Ensure Enlive TID /protein ) Provides kCal: 1,050 Provides Protein (gm) 60 Goal #1 Meet at least 75% of energy and protein needs via PO and ONS Anticipated Discharge Needs: Cardiac Diet with ONS PRN Follow-Up By: 03/29/20 Additional Comments FU for PO/ONS intakes, tolerance <GERSON BRYAN R - Last Filed: 03/29/20 07:17> Assessment and Plan Assessment and plan: I saw and evaluated the patient. I agree with the findings and the plan of care as documented in the Nurse Practitioner's~note, Hospitalist Physical - Constitutional Vitals: Temp Pulse Resp BP Pulse Ox 98.6 F 132 H 22 121/55 100 03/29/20 04:49 03/29/20 04:49 03/29/20 04:49 03/29/20 04:49 03/29/20 06:42 HEART Score - HEART Score Troponin: Troponin T < 0.010 ng/mL (0.00-0.029) 03/13/20 16:24 Results - Labs CBC & Chem 7: 03/29/20 05:07 03/28/20 07:51 Labs: Laboratory Last Values WBC 22.0 K/mm3 (4.5-11.0) H 03/29/20 05:07 RBC 3.99 M/mm3 (3.65-5.03) 03/29/20 05:07 Hgb 10.8 gm/dl (10.1-14.3) 03/29/20 05:07 Hct 33.3 % (30.3-42.9) 03/29/20 05:07 MCV 83 fl (79-97) 03/29/20 05:07 MCH 27 pg (28-32) L 03/29/20 05:07 MCHC 32 % (30-34) 03/29/20 05:07 RDW 16.0 % (13.2-15.2) H 03/29/20 05:07 Plt Count 330 K/mm3 (140-440) 03/29/20 05:07 Lymph % (Auto) 11.5 % (13.4-35.0) L 03/21/20 05:27 Lynn % (Auto) 7.9 % (0.0-7.3) H 03/21/20 05:27 Eos % (Auto) 2.0 % (0.0-4.3) 03/21/20 05:27 Baso % (Auto) 0.2 % (0.0-1.8) 03/21/20 05:27 Lymph # (Auto) 1.6 K/mm3 (1.2-5.4) 03/21/20 05:27 Lynn # (Auto) 1.1 K/mm3 (0.0-0.8) H 03/21/20 05:27 Eos # (Auto) 0.3 K/mm3 (0.0-0.4) 03/21/20 05:27 Baso # (Auto) 0.0 K/mm3 (0.0-0.1) 03/21/20 05:27 Add Manual Diff Complete 03/28/20 07:51 Total Counted 100 03/28/20 07:51 Seg Neutrophils % 78.4 % (40.0-70.0) H 03/21/20 05:27 Seg Neuts % (Manual) 86.0 % (40.0-70.0) H 03/28/20 07:51 Band Neutrophils % 3.0 % 03/27/20 08:21 Lymphocytes % (Manual) 10.0 % (13.4-35.0) L 03/28/20 07:51 Monocytes % (Manual) 4.0 % (0.0-7.3) 03/28/20 07:51 Nucleated RBC % Not Reportable 03/28/20 07:51 Seg Neutrophils # 11.1 K/mm3 (1.8-7.7) H 03/21/20 05:27 Seg Neutrophils # Man 27.7 K/mm3 (1.8-7.7) H 03/28/20 07:51 Band Neutrophils # 0.0 K/mm3 03/28/20 07:51 Lymphocytes # (Manual) 3.2 K/mm3 (1.2-5.4) 03/28/20 07:51 Abs React Lymphs (Man) 0.0 K/mm3 03/28/20 07:51 Monocytes # (Manual) 1.3 K/mm3 (0.0-0.8) H 03/28/20 07:51 Eosinophils # (Manual) 0.0 K/mm3 (0.0-0.4) 03/28/20 07:51 Basophils # (Manual) 0.0 K/mm3 (0.0-0.1) 03/28/20 07:51 Metamyelocytes # 0.0 K/mm3 03/28/20 07:51 Myelocytes # 0.0 K/mm3 03/28/20 07:51 Promyelocytes # 0.0 K/mm3 03/28/20 07:51 Blast Cells # 0.0 K/mm3 03/28/20 07:51 WBC Morphology Not Reportable 03/28/20 07:51 Hypersegmented Neuts Not Reportable 03/28/20 07:51 Hyposegmented Neuts Not Reportable 03/28/20 07:51 Hypogranular Neuts Not Reportable 03/28/20 07:51 Smudge Cells Not Reportable 03/28/20 07:51 Toxic Granulation Not Reportable 03/28/20 07:51 Toxic Vacuolation Few 03/28/20 07:51 Dohle Bodies Not Reportable 03/28/20 07:51 Pelger-Huet Anomaly Not Reportable 03/28/20 07:51 Natan Rods Not Reportable 03/28/20 07:51 Platelet Estimate Consistent w auto 03/28/20 07:51 Clumped Platelets Not Reportable 03/28/20 07:51 Plt Clumps, EDTA Not Reportable 03/28/20 07:51 Large Platelets Few 03/28/20 07:51 Giant Platelets Not Reportable 03/28/20 07:51 Platelet Satelliting Not Reportable 03/28/20 07:51 Plt Morphology Comment Not Reportable 03/28/20 07:51 RBC Morphology Normal 03/28/20 07:51 Dimorphic RBCs Not Reportable 03/28/20 07:51 Polychromasia Not Reportable 03/28/20 07:51 Hypochromasia Not Reportable 03/28/20 07:51 Poikilocytosis Not Reportable 03/28/20 07:51 Anisocytosis Not Reportable 03/28/20 07:51 Microcytosis Not Reportable 03/28/20 07:51 Macrocytosis Not Reportable 03/28/20 07:51 Spherocytes Not Reportable 03/28/20 07:51 Pappenheimer Bodies Not Reportable 03/28/20 07:51 Sickle Cells Not Reportable 03/28/20 07:51 Target Cells Not Reportable 03/28/20 07:51 Tear Drop Cells Not Reportable 03/28/20 07:51 Ovalocytes Not Reportable 03/28/20 07:51 Helmet Cells Not Reportable 03/28/20 07:51 [place] Bodies Not Reportable 03/28/20 07:51 [place] Rings Not Reportable 03/28/20 07:51 Alexia Cells Not Reportable 03/28/20 07:51 Bite Cells Not Reportable 03/28/20 07:51 Crenated Cell Not Reportable 03/28/20 07:51 Elliptocytes Not Reportable 03/28/20 07:51 Acanthocytes (Spur) Not Reportable 03/28/20 07:51 Rouleaux Not Reportable 03/28/20 07:51 Hemoglobin C Crystals Not Reportable 03/28/20 07:51 Schistocytes Not Reportable 03/28/20 07:51 Malaria parasites Not Reportable 03/28/20 07:51 [place] Bodies Not Reportable 03/28/20 07:51 Hem Pathologist Commnt No 03/28/20 07:51 PT 11.8 Sec. (12.2-14.9) L 03/13/20 16:24 INR 0.89 (0.87-1.13) 03/13/20 16:24 D-Dimer 1182.25 ng/mlDDU (0-234) H 03/28/20 07:51 Sodium 136 mmol/L (137-145) L 03/28/20 07:51 Potassium 4.4 mmol/L (3.6-5.0) 03/28/20 07:51 Chloride 93.0 mmol/L (98-107) L 03/28/20 07:51 Carbon Dioxide 35 mmol/L (22-30) H 03/28/20 07:51 Anion Gap 12 mmol/L 03/28/20 07:51 BUN 15 mg/dL (7-17) 03/28/20 07:51 Creatinine 0.7 mg/dL (0.6-1.2) 03/28/20 07:51 Estimated GFR > 60 ml/min 03/28/20 07:51 BUN/Creatinine Ratio 21 % 03/28/20 07:51 Glucose 243 mg/dL (65-100) H 03/28/20 07:51 Lactic Acid 1.70 mmol/L (0.7-2.0) 03/13/20 16:24 Calcium 9.9 mg/dL (8.4-10.2) 03/28/20 07:51 Magnesium 1.80 mg/dL (1.7-2.3) 03/13/20 16:24 Total Bilirubin 0.30 mg/dL (0.1-1.2) 03/21/20 05:27 Ferritin 514.4 ng/mL (10.0-200.0) H 03/28/20 07:51 Direct Bilirubin < 0.2 mg/dL (0-0.2) 03/16/20 05:18 Indirect Bilirubin 0.1 mg/dL 03/16/20 05:18 AST 12 units/L (5-40) 03/21/20 05:27 ALT 8 units/L (7-56) 03/21/20 05:27 Alkaline Phosphatase 72 units/L (35-129) 03/21/20 05:27 Lactate Dehydrogenase 218 units/L (91-180) H 03/29/20 05:07 Total Creatine Kinase 42 units/L (30-135) 03/13/20 16:24 Troponin T < 0.010 ng/mL (0.00-0.029) 03/13/20 16:24 C-Reactive Protein 18.00 mg/dL (0.00-1.30) H 03/29/20 05:07 NT-Pro-B Natriuret Pep 220.0 pg/mL (0-900) 03/25/20 15:14 Total Protein 7.3 g/dL (6.3-8.2) 03/21/20 05:27 Albumin 3.6 g/dL (3.9-5) L 03/21/20 05:27 Albumin/Globulin Ratio 1.0 % 03/21/20 05:27 Procalcitonin 1.16 ng/mL (<0.15) 03/27/20 18:45 Urine Color Yellow (Yellow) 03/28/20 17:48 Urine Turbidity Clear (Clear) 03/28/20 17:48 Urine pH 6.0 (5.0-7.0) 03/28/20 17:48 Ur Specific [place] 1.036 (1.003-1.030) H 03/28/20 17:48 Urine Protein 30 mg/dl mg/dL (Negative) 03/28/20 17:48 Urine Glucose (UA) >=500 mg/dL (Negative) 03/28/20 17:48 Urine Ketones Tr mg/dL (Negative) 03/28/20 17:48 Urine Blood Neg (Negative) 03/28/20 17:48 Urine Nitrite Neg (Negative) 03/28/20 17:48 Urine Bilirubin Neg (Negative) 03/28/20 17:48 Urine Urobilinogen < 2.0 mg/dL (<2.0) 03/28/20 17:48 Ur Leukocyte Esterase Tr (Negative) 03/28/20 17:48 Urine WBC (Auto) 5.0 /HPF (0.0-6.0) 03/28/20 17:48 Urine RBC (Auto) 2.0 /HPF (0.0-6.0) 03/28/20 17:48 U Epithel Cells (Auto) 2.0 /HPF (0-13.0) 03/28/20 17:48 Urine Mucus Few /HPF 03/28/20 17:48 Vancomycin Trough 5.7 ug/mL (5.0-20.0) 03/28/20 21:20 Coronavirus (PCR) Positive (Negative) A 03/14/20 Unknown SARS-CoV-2 IgG Ab Reactive (NonReactive) A 03/14/20 16:58 Microbiology: Microbiology 03/26/20 22:58 Peripheral/Venous Blood Culture - Preliminary NO GROWTH AFTER 48 HOURS 03/26/20 23:20 Peripheral/Venous Blood Culture - Preliminary NO GROWTH AFTER 48 HOURS [place]/IV: Voiding Method Bedside Commode IV Catheter Type [Left Forearm Peripheral IV ] IV Catheter Type [Right INT / Saline Lock Forearm] IV Catheter Type [Right Wrist] INT / Saline Lock IV Catheter Type [Right Hand] INT / Saline Lock IV Catheter Type [Left Upper INT / Saline Lock arm] IV Catheter Type [Left Peripheral IV Antecubital] Active Medications - Current Medications Current Medications: Generic Name Dose Route Start Last Admin Trade Name Freq PRN Reason Stop Dose Admin Acetaminophen 650 mg 03/13/20 17:21 03/28/20 08:32 Acetaminophen 325 Mg Tab PO 650 mg Q4H PRN Administration Pain MILD(1-3)/Fever >100.5/CARIAS Albuterol 2.5 mg 03/13/20 17:21 Albuterol 2.5 Mg/3 Ml Nebu IH Q4HRT PRN Shortness Of Breath Alprazolam 0.5 mg 03/25/20 20:27 03/26/20 20:21 Alprazolam 0.5 Mg Tab PO 0.5 mg Q8H PRN Administration Anxiety Amitriptyline HCl 10 mg 03/25/20 22:00 03/28/20 22:29 Amitriptyline 10 Mg Tab PO 10 mg QHS SANDY Administration Ascorbic Acid 1,000 mg 03/26/20 10:00 03/28/20 22:27 Ascorbic Acid 500 Mg Tab PO 1,000 mg BID SANDY Administration Benzonatate 100 mg 03/13/20 22:00 03/29/20 05:25 Benzonatate 100 Mg Cap PO 100 mg Q8HR SANDY Administration Duloxetine HCl 60 mg 03/14/20 10:00 03/28/20 10:27 Duloxetine 30 Mg Cap PO 60 mg QDAY SANDY Administration Enoxaparin Sodium 40 mg 03/23/20 22:00 03/28/20 22:27 Enoxaparin 40 Mg/0.4 Ml Inj SUB-Q 40 mg QDAY@2200 SANDY Administration Protocol Ergocalciferol 50,000 unit 03/20/20 10:00 03/27/20 16:01 Ergocalciferol (Vit D2) 50,000 Unit Cap PO 50,000 unit [place] SANDY Administration Famotidine 10 mg 03/13/20 22:00 03/29/20 00:00 Famotidine 10 Mg Tab PO 10 mg BID SANDY Administration Gabapentin 300 mg 03/13/20 20:00 03/28/20 22:28 Gabapentin 300 Mg Cap PO 300 mg TID SANDY Administration Guaifenesin 10 ml 03/13/20 17:24 03/25/20 02:10 Guaifenesin Dm 200/20 Mg Oral Liqd 10 Ml PO 10 ml Q4H PRN Administration Cough Hydroxyzine Pamoate 50 mg 03/13/20 22:00 03/29/20 01:50 Hydroxyzine Pamoate 50 Mg Cap PO Not Given QID SANDY Vancomycin HCl 1 gm in 250 mls @ 250 mls/hr 03/27/20 10:00 03/29/20 01:49 Vancomycin/Ns 1 Gm/250 Ml IV 250 mls/hr Q12H SANDY Administration Cefepime HCl 2 gm in 100 mls @ 200 mls/hr 03/28/20 15:00 03/29/20 00:00 Cefepime/Ns 2 Gm/100 Ml IV 200 mls/hr Q12HR SANDY Administration Protocol Lamotrigine 100 mg 03/14/20 10:00 03/28/20 10:27 Lamotrigine 100 Mg Tab PO 100 mg QDAY SANDY Administration [place] Carbonate 150 mg 03/13/20 22:00 03/28/20 22:28 [place] Carbonate 150 Mg Cap PO 150 mg BID SANDY Administration Methylprednisolone Sodium Succinate 20 mg 03/27/20 22:00 03/28/20 22:27 Methylprednisolone Sod Succinate 40 Mg/1 Ml Inj IV 20 mg BID SANDY Administration Methylprednisolone Sodium Succinate 20 mg 03/29/20 10:00 Methylprednisolone Sod Succinate 40 Mg/1 Ml Inj IV 03/31/20 10:01 DAILY SANDY Montelukast Sodium 10 mg 03/14/20 10:00 03/28/20 10:27 Montelukast 10 Mg Tab PO 10 mg DAILY [facility] Administration Ondansetron HCl 4 mg 03/13/20 17:21 03/29/20 05:25 Ondansetron 4 Mg/2 Ml Inj IV 4 mg Q8H PRN Administration Nausea And Vomiting Oxybutynin Chloride 5 mg 03/13/20 20:00 03/28/20 22:28 Oxybutynin 5 Mg Tab PO 5 mg TID SANDY Administration Phenol 1 spray 03/25/20 20:05 03/26/20 00:27 Phenol 1.4% 177 Ml Bottle MM 1 spray PRN PRN Administration Sore Throat Sodium Chloride 10 ml 03/13/20 22:00 03/28/20 22:29 Sodium Chloride 0.9% 10 Ml Flush Syringe IV 10 ml BID SANDY Administration Sodium Chloride 10 ml 03/13/20 17:21 Sodium Chloride 0.9% 10 Ml Flush Syringe IV PRN PRN LINE FLUSH Trazodone HCl 100 mg 03/13/20 22:00 03/28/20 22:27 Trazodone 100 Mg Tab PO 100 mg QHS SANDY Administration Zinc Sulfate 220 mg 03/26/20 10:00 03/28/20 22:27 Zinc Sulfate 220 Mg Cap PO 220 mg BID SANDY Administration Nutrition/Malnutrition Assess - Dietary Evaluation Nutrition/Malnutrition Findings: Nutrition Notes Start: 03/14/20 15:39 Freq: Status: Active Protocol: Document 03/24/20 13:42 MK (Rec: 03/24/20 13:50 MK [id number]) Nutrition Notes Initial or Follow up Reassessment Current Diagnosis COPD,Sepsis,Hypertension, Hyperlipidemia Other Pertinent Diagnosis COVID-19, Pneu, Anxiety, GERD, OA, ARF, bronchitis Current Diet Cardiac Labs/Tests Reviewed Pertinent Medications [id number] Height 5 ft 1 in Weight 64.9 kg [place] Body Weight (kg) 47.72 BMI 27.0 Weight Status Overweight Subjective/Other Information FU for intakes. Pt did not answer phone x2. Per tech, pt asked for Ensures today. Pt did not eat breakfast and RN and tech are unsure about lunch. Percent of energy/protein needs met: 48%/65% Burn Absent Trauma Absent GI Symptoms None Food Allergy No Current % PO Poor (25-49%) Minimum of two criteria No Energy Intake (non-severe) <75% Estimated Energy Requirement >7 days #1 Nutrition Diagnosis Inadequate oral intake Diagnosis Progress(for reassessment Continues documentation) Is patient on ventilator? No Is Patient Ambulatory and/or Out of Bed Yes REE-([facility]-ambulatory/OOB) [ [id number] [id number]] Calculation Used for Recommendations [facility] Additional Notes Protein: 1-1.2 g/kg (62-74g) Fluid: 1 ml/kcal Nutrition Intervention Change Diet Order: Continue Add Supplement/Snack (indicate name/kcal Ensure Enlive TID /protein ) Provides kCal: 1,050 Provides Protein (gm) 60 Goal #1 Meet at least 75% of energy and protein needs via PO and ONS Anticipated Discharge Needs: Cardiac Diet with ONS PRN Follow-Up By: 03/29/20 Additional Comments FU for PO/ONS intakes, tolerance
[2020-03-28 18:07] LABS: Bilirubin,Urine NEG (Negative); Blood,Urine NEG (Negative); Color,Urine Yellow (Yellow); Mucus,Urine FEW /HPF; Urobilinogen,Urine < 2.0 mg/dL (<2.0)
[2020-03-28] MEDS: traZODone 100 MG TAB PO SCH (22:27)
[2020-03-28] MEDS: ENOXAPARIN 40 MG/0.4 ML INJ SUB-Q SCH (22:27)
[2020-03-28] MEDS: AMITRIPTYLINE 10 MG TAB PO SCH (22:29)
[2020-03-29] MEDS: VANCOMYCIN/NS 1 GM/250 ML 1 GM/250 ML BAG IV SCH ×3 (01:49→18:11)
[2020-03-29] MEDS: BENZONATATE 100 MG CAP PO SCH ×3 (05:25→23:52)
[2020-03-29] MEDS: ONDANSETRON 4 MG/2 ML INJ IV PRN (05:25)
[2020-03-29 06:38] LABS: Hematocrit 33.3 % (30.3-42.9); Hemoglobin 10.8 gm/dl (10.1-14.3); Mean Corpuscular HGB Conc 32 % (30-34); Mean Corpuscular Volume 83 fl (79-97); Platelet Count 330 K/mm3 (140-440); Red Blood Count 3.99 M/mm3 (3.65-5.03)
[2020-03-29] MEDS ORDERED: FUROSEMIDE 40 MG/4 ML INJ IV NR (08:15)
--- NOTE | 2020-03-29 08:42 | XRay Report ---
CHEST 1 VIEW 03/29/2020 7:34 AM INDICATION / CLINICAL INFORMATION: Xary needed before lung scan. COMPARISON: 03/26/2020 FINDINGS: SUPPORT DEVICES: None. HEART / MEDIASTINUM: No significant abnormality. LUNGS / PLEURA: Bilateral airspace consolidation, left greater than right, unchanged. No pneumothorax . ADDITIONAL FINDINGS: No significant additional findings. IMPRESSION: 1. Stable bilateral pneumonia Signer Name: Finesse Pena MD Signed: 03/29/2020 8:37 AM Workstation Name: [email or web address]
--- NOTE | 2020-03-29 09:15 | Progress Note ---
Assessment and Plan 64 y/o female with acute on chronic respiratory failure secondary COVID 19 pneumonia. 1. continue to taper steroids to off given increased level of anxiety. Can start on 20 daily today for 3 days then stop. [facility] has already written for this. 2. Would consider lasix therapy again despite only mildly elevated BNP. Having a net negative fluid balance can still help with oxygenation. [facility] ordered 40 for today. 3. Prone as tolerated during the day and sleep prone at night. Patient has been noncompliant with this. 4. Abx therapy per ID 5. Guarded prognosis given prolonged high levels of flow and oxygen requirements. Subjective Date of service: 03/29/20 Principal diagnosis: COVID/COPD Interval history: Down to 30 and 85% on HFNC. Per CM note not a candidate for LTACH as she has had no ICU days during this hospital stay. Remainder of the review is negative. Apparently CTA is ordered but unable to obtain proper IV access. Objective Vital Signs - 12hr 03/28/20 03/28/20 03/28/20 23:00 23:09 23:26 Temperature 98.4 F Pulse Rate 111 H Respiratory 20 Rate Blood Pressure 121/68 O2 Sat by Pulse 94 89 96 Oximetry 03/29/20 03/29/20 03/29/20 04:49 06:42 08:34 Temperature 98.6 F Pulse Rate 132 H Respiratory 22 Rate Blood Pressure 121/55 O2 Sat by Pulse 90 100 100 Oximetry Constitutional: alert, other (critically ill on HFNC) Eyes: non-icteric Neck: supple Effort: mildly labored Ascultation: Bilateral: clear, wheezes Cardiovascular: other (tachy, RR; no mrg) Gastrointestinal: normoactive bowel sounds, soft, non-tender Integumentary: normal Extremities: no cyanosis, no edema, pink and warm Neurologic: normal mental status, non-focal exam, CN II-XII normal Psychiatric: anxious, other (very fidgety) CBC and BMP: 03/29/20 05:07 03/28/20 07:51 ABG, PT/INR, D-dimer: PT/INR, D-dimer PT 11.8 Sec. (12.2-14.9) L 03/13/20 16:24 INR 0.89 (0.87-1.13) 03/13/20 16:24 D-Dimer 1182.25 ng/mlDDU (0-234) H 03/28/20 07:51 Abnormal lab findings: Abnormal Labs 03/13/20 03/13/20 03/13/20 16:24 16:24 16:24 WBC MCH RDW 16.8 H Plt Count Lymph % (Auto) 8.5 L [place] % (Auto) Lymph # (Auto) 0.6 L [place] # (Auto) Seg Neutrophils % 84.9 H Seg Neuts % (Manual) Lymphocytes % (Manual) Seg Neutrophils # Seg Neutrophils # Man Lymphocytes # (Manual) Monocytes # (Manual) PT 11.8 L D-Dimer 234.66 H Sodium 135 L Potassium 3.1 L Chloride Carbon Dioxide BUN Glucose 174 H Ferritin Lactate Dehydrogenase 277 H C-Reactive Protein 8.00 H Albumin 3.7 L Ur Specific [place] Coronavirus (PCR) SARS-CoV-2 IgG Ab 03/13/20 03/14/20 03/14/20 16:24 08:02 08:02 WBC 3.9 L MCH RDW 16.3 H Plt Count Lymph % (Auto) [place] % (Auto) 9.5 H Lymph # (Auto) 0.7 L [place] # (Auto) Seg Neutrophils % 72.9 H Seg Neuts % (Manual) Lymphocytes % (Manual) Seg Neutrophils # Seg Neutrophils # Man Lymphocytes # (Manual) Monocytes # (Manual) PT D-Dimer Sodium Potassium Chloride 107.4 H Carbon Dioxide BUN Glucose 174 H 142 H Ferritin Lactate Dehydrogenase 267 H C-Reactive Protein 8.10 H Albumin Ur Specific [place] Coronavirus (PCR) SARS-CoV-2 IgG Ab 03/14/20 03/14/20 03/14/20 16:58 16:58 Unknown WBC MCH RDW Plt Count Lymph % (Auto) [place] % (Auto) Lymph # (Auto) [place] # (Auto) Seg Neutrophils % Seg Neuts % (Manual) Lymphocytes % (Manual) Seg Neutrophils # Seg Neutrophils # Man Lymphocytes # (Manual) Monocytes # (Manual) PT D-Dimer Sodium Potassium Chloride Carbon Dioxide BUN Glucose Ferritin Lactate Dehydrogenase 277 H C-Reactive Protein 2.60 H Albumin Ur Specific [place] Coronavirus (PCR) Positive A SARS-CoV-2 IgG Ab Reactive A 03/16/20 03/16/20 03/16/20 05:18 05:18 10:34 WBC MCH RDW 16.4 H Plt Count Lymph % (Auto) [place] % (Auto) 10.0 H Lymph # (Auto) [place] # (Auto) Seg Neutrophils % Seg Neuts % (Manual) Lymphocytes % (Manual) Seg Neutrophils # Seg Neutrophils # Man Lymphocytes # (Manual) Monocytes # (Manual) PT D-Dimer 278.32 H Sodium Potassium 3.1 L Chloride Carbon Dioxide BUN Glucose Ferritin Lactate Dehydrogenase C-Reactive Protein Albumin 3.4 L Ur Specific [place] Coronavirus (PCR) SARS-CoV-2 IgG Ab 03/16/20 03/17/20 03/18/20 10:34 21:24 05:58 WBC 14.8 H MCH RDW 15.8 H Plt Count Lymph % (Auto) 11.5 L [place] % (Auto) Lymph # (Auto) [place] # (Auto) 1.0 H Seg Neutrophils % 81.3 H Seg Neuts % (Manual) Lymphocytes % (Manual) Seg Neutrophils # 12.0 H Seg Neutrophils # Man Lymphocytes # (Manual) Monocytes # (Manual) PT D-Dimer Sodium Potassium Chloride Carbon Dioxide BUN Glucose 182 H Ferritin Lactate Dehydrogenase 268 H 268 H C-Reactive Protein 2.10 H 4.90 H Albumin Ur Specific [place] Coronavirus (PCR) SARS-CoV-2 IgG Ab 03/18/20 03/21/20 03/21/20 05:58 05:27 05:27 WBC 14.1 H MCH 27 L RDW 16.1 H Plt Count 513 H Lymph % (Auto) 11.5 L [place] % (Auto) 7.9 H Lymph # (Auto) [place] # (Auto) 1.1 H Seg Neutrophils % 78.4 H Seg Neuts % (Manual) Lymphocytes % (Manual) Seg Neutrophils # 11.1 H Seg Neutrophils # Man Lymphocytes # (Manual) Monocytes # (Manual) PT D-Dimer Sodium Potassium 2.9 L* Chloride Carbon Dioxide 18 L BUN Glucose Ferritin Lactate Dehydrogenase C-Reactive Protein Albumin 3.6 L 3.6 L Ur Specific [place] Coronavirus (PCR) SARS-CoV-2 IgG Ab 03/22/20 03/22/20 03/22/20 15:45 15:45 15:45 WBC MCH RDW Plt Count Lymph % (Auto) [place] % (Auto) Lymph # (Auto) [place] # (Auto) Seg Neutrophils % Seg Neuts % (Manual) Lymphocytes % (Manual) Seg Neutrophils # Seg Neutrophils # Man Lymphocytes # (Manual) Monocytes # (Manual) PT D-Dimer 274.02 H Sodium Potassium Chloride Carbon Dioxide BUN Glucose Ferritin Lactate Dehydrogenase 259 H C-Reactive Protein 7.60 H Albumin Ur Specific [place] Coronavirus (PCR) SARS-CoV-2 IgG Ab 03/26/20 03/26/20 03/27/20 05:45 05:45 08:21 WBC 34.9 H MCH RDW 15.9 H Plt Count 579 H Lymph % (Auto) [place] % (Auto) Lymph # (Auto) [place] # (Auto) Seg Neutrophils % Seg Neuts % (Manual) Lymphocytes % (Manual) Seg Neutrophils # Seg Neutrophils # Man Lymphocytes # (Manual) Monocytes # (Manual) PT D-Dimer Sodium 130 L 130 L Potassium Chloride 86.0 L 88.5 L Carbon Dioxide 35 H BUN 22 H Glucose 227 H 326 H Ferritin Lactate Dehydrogenase 213 H C-Reactive Protein 34.50 H Albumin Ur Specific [place] Coronavirus (PCR) SARS-CoV-2 IgG Ab 03/27/20 03/27/20 03/27/20 08:21 18:45 18:45 WBC 42.1 H* MCH RDW 16.3 H Plt Count Lymph % (Auto) [place] % (Auto) Lymph # (Auto) [place] # (Auto) Seg Neutrophils % Seg Neuts % (Manual) 91.0 H Lymphocytes % (Manual) 2.0 L Seg Neutrophils # Seg Neutrophils # Man 38.3 H Lymphocytes # (Manual) 0.8 L Monocytes # (Manual) 1.7 H PT D-Dimer Sodium Potassium Chloride Carbon Dioxide BUN Glucose Ferritin 400.5 H Lactate Dehydrogenase C-Reactive Protein 49.70 H Albumin Ur Specific [place] Coronavirus (PCR) SARS-CoV-2 IgG Ab 03/28/20 03/28/20 03/28/20 07:51 07:51 07:51 WBC 32.2 H MCH 27 L RDW 16.3 H Plt Count Lymph % (Auto) [place] % (Auto) Lymph # (Auto) [place] # (Auto) Seg Neutrophils % Seg Neuts % (Manual) 86.0 H Lymphocytes % (Manual) 10.0 L Seg Neutrophils # Seg Neutrophils # Man 27.7 H Lymphocytes # (Manual) Monocytes # (Manual) 1.3 H PT D-Dimer 1182.25 H Sodium Potassium Chloride Carbon Dioxide BUN Glucose Ferritin 514.4 H Lactate Dehydrogenase C-Reactive Protein Albumin Ur Specific [place] Coronavirus (PCR) SARS-CoV-2 IgG Ab 1203/28/20 03/29/20 07:51 17:48 05:07 WBC MCH RDW Plt Count Lymph % (Auto) [place] % (Auto) Lymph # (Auto) [place] # (Auto) Seg Neutrophils % Seg Neuts % (Manual) Lymphocytes % (Manual) Seg Neutrophils # Seg Neutrophils # Man Lymphocytes # (Manual) Monocytes # (Manual) PT D-Dimer Sodium 136 L Potassium Chloride 93.0 L Carbon Dioxide 35 H BUN Glucose 243 H Ferritin Lactate Dehydrogenase 218 H C-Reactive Protein 18.00 H Albumin Ur Specific [place] 1.036 H Coronavirus (PCR) SARS-CoV-2 IgG Ab 03/29/20 05:07 WBC 22.0 H MCH 27 L RDW 16.0 H Plt Count Lymph % (Auto) [place] % (Auto) Lymph # (Auto) [place] # (Auto) Seg Neutrophils % Seg Neuts % (Manual) Lymphocytes % (Manual) Seg Neutrophils # Seg Neutrophils # Man Lymphocytes # (Manual) Monocytes # (Manual) PT D-Dimer Sodium Potassium Chloride Carbon Dioxide BUN Glucose Ferritin Lactate Dehydrogenase C-Reactive Protein Albumin Ur Specific [place] Coronavirus (PCR) SARS-CoV-2 IgG Ab
[2020-03-29] MEDS: methylPREDNISolone Sod Succinate 40 MG/1 ML INJ IV SCH ×3 (09:56→23:53)
[2020-03-29] MEDS: MONTELUKAST 10 MG TAB PO SCH (09:56)
[2020-03-29] MEDS: DULoxetine 30 MG CAP PO SCH (09:57)
[2020-03-29] MEDS: CEFEPIME/NS 2 GM/100 ML 2 GM/100 ML BAG IV SCH ×3 (09:57→21:46)
[2020-03-29] MEDS: OXYBUTYNIN 5 MG TAB PO SCH ×3 (09:57→21:47)
[2020-03-29] MEDS: lamoTRIgine 100 MG TAB PO SCH (09:57)
[2020-03-29] MEDS: ZINC SULFATE 220 MG CAP PO SCH ×2 (09:57→23:52)
[2020-03-29] MEDS: GABAPENTIN 300 MG CAP PO SCH ×3 (09:57→21:47)
[2020-03-29] MEDS: LITHIUM CARBONATE 150 MG CAP PO SCH ×2 (10:06→23:52)
--- NOTE | 2020-03-29 13:12 | Progress Note ---
Assessment and Plan Cultures: Blood culture no growth SARS CoV2 PCR positive SARS Covid 2 IgG positive 03/26/2020 blood culture: no growth Assessment: 64 years old female with history of COPD on 3 L home O2, GERD, hypertension, hyperlipidemia, anxiety, asthma, admitted on 03/13/2020 secondary to 5-day history of generalized malaise, weakness, fever, dry cough, shortness of breath and dyspnea on exertion: #Severe COVID pneumonia/Bacterial pneumonia: Procalcitonin elevated likely a bacterial component, had completed cefepime. Completed remdesivir and decadron. SARS CoV-2 IgG is positive, patient is not a candidate for COVID convalescent plasma. #Acute on chronic hypoxemic respiratory failure: Patient is on 3 L at home, currently on HFNC. #COPD with exacerbation #Diarrhea: Likely secondary to COVID-19. Recommendations: -Completed remdesivir and decadron -Continue steroids, now on solumedrol per pulmonary -leukemoid reaction, but now trending down, elevated CRP and elevated p rocalcitonin, continue empiric abx: Cefepime + Vancomycin for now, hope to stop soon -f/u VTE evaluation Angel Li MD, FACP [facility] O: [phone] F: [phone] Subjective Date of service: 03/29/20 Principal diagnosis: COVID/COPD Interval history: Afebrile. Remains on high flow oxygen. Objective - Exam Narrative Exam: Physical Exam (reviewed in chart to minimize risk of transmission) Constitutional: deferred Head, Ears, Nose: deferred Eyes: deferred Neck: deferred Oral: deferred Cardiovascular: deferred Respiratory: deferred GI: deferred Musculoskeletal: deferred Skin: deferred Hem/Lymphatic: deferred Psych: deferred Neurological: deferred - Constitutional Vitals: Vital Signs Temp Pulse Resp BP Pulse Ox 98.6 F 132 H 22 121/55 100 03/29/20 04:49 03/29/20 04:49 03/29/20 04:49 03/29/20 04:49 03/29/20 08:34 Temperature -Last 24 Hours Temperature 98.6 F Temperature 98.4 F Temperature 97.7 F - Labs CBC & Chem 7: 03/29/20 05:07 12/28/20 07:51 Labs: Abnormal lab results 03/28/20 03/29/20 03/29/20 Range/Units 17:48 05:07 05:07 WBC 22.0 H (4.5-11.0) K/mm3 MCH 27 L (28-32) pg RDW 16.0 H (13.2-15.2) % Lactate Dehydrogenase 218 H (91-180) units/L C-Reactive Protein 18.00 H (0.00-1.30) mg/dL Ur Specific [place] 1.036 H (1.003-1.030)
[2020-03-29] MEDS: ASCORBIC ACID 500 MG TAB PO SCH ×2 (13:32→23:52)
[2020-03-29 15:53] LABS: Blood Urea Nitrogen 15 mg/dL (7-17); Calcium 8.9 mg/dL (8.4-10.2); Hemolysis Index 46
[2020-03-29 15:54] LABS: BUN/Creatinine Ratio 25
--- NOTE | 2020-03-29 18:38 | Progress Note ---
Assessment and Plan - Patient Problems (1) Sepsis Current Visit: Yes Status: Acute Qualifiers: Sepsis acute organ dysfunction status: with acute organ dysfunction Severe sepsis acute organ dysfunction type: acute respiratory failure Acute respiratory failure type: with hypoxia Severe sepsis shock status: without septic shock Plan to address problem: Patient presented with tachypnea, tachycardia, febrile at 102, acute respiratory failure with hypoxia and chest x-ray showed bilateral patchy infiltrate left greater than right. Patient positive for COVID-19 Infectious disease consulted S/p antibiotic therapy 03/13 blood cultures x2 no growth after 5 days (2) Pneumonia due to COVID-19 virus Current Visit: Yes Status: Acute Plan to address problem: 03/14 COVID-19 PCR positive 03/14 Covid 19 antibody positive, not a candidate for comments of plasma Chest x-ray showed bilateral patchy infiltrate left greater than right. S/p cefepime S/p remdesivir and Decadron Patient now on Solu-Medrol per pulmonology Trend inflammatory markers for wrist education Droplet/contact isolation OOB 3 times daily and as tolerated Supplemental oxygen as needed Anticoagulation per protocol Pulmonary hygiene Continue SPO2 monitoring Prone to sleep as tolerated Vitamin C, D, zinc (3) Acute hypoxemic respiratory failure Current Visit: Yes Status: Acute Plan to address problem: Patient presented with acute hypoxic respiratory failure Supplemental oxygen as needed Continue SPO2 monitoring Pulmonary hygiene (4) Leukocytosis Current Visit: Yes Status: Acute Plan to address problem: 03/18 WBC 14.8, 03/26 WBC 34.9, 03/27 WBC 42.1, 03/28 WBC 32, 03/29 WBC 22 Patient is on steroid therapy Antibiotics adjusted by infectious disease given refractory leukemoid reaction Per infectious disease consider CT abdomen pelvis with contrast if WBCs remain elevated Trend CBC (5) Hyponatremia Current Visit: Yes Status: Acute Plan to address problem: 03/26 sodium 130, 03/28 sodium 136, 03/29 sodium 131 Corrected sodium 132, 134, 135 Pseudohyponatremia Monitor neuro status Trend BMP (6) Hypochloremic alkalosis Current Visit: Yes Status: Acute Plan to address problem: 03/26 chloride 86, 03/28 chloride 93, 03/29 chloride 91 03/27 CO2 35, 03/28 CO2 35, 03/29 CO2 31 Patient remains on high flow nasal cannula Trend BMP Patient is receiving Lasix therapy (7) Elevated d-dimer Current Visit: Yes Status: Acute Plan to address problem: 03/26 D-dimer 166, 03/28 D-dimer 1182 Anticoagulation per protocol 03/28 CTA chest was changed to VQ scan due to lack of IV access which is still pending at this time 03/28 bilateral lower extremity Doppler ultrasound pending (8) Hypertension Current Visit: Yes Status: Chronic Qualifiers: Hypertension type: essential hypertension Qualified Code(s): I10 - Essential (primary) hypertension Plan to address problem: Continue home antihypertensive regimen Blood pressure monitoring per protocol Hydralazine as needed for SBP greater than 160 (9) Hyperlipidemia Current Visit: Yes Status: Chronic Qualifiers: Hyperlipidemia type: mixed hyperlipidemia Qualified Code(s): E78.2 - Mixed hyperlipidemia Plan to address problem: Continue home statin therapy (10) GERD (gastroesophageal reflux disease) Current Visit: Yes Status: Chronic Qualifiers: Esophagitis presence: without esophagitis Qualified Code(s): K21.9 - Gastro-esophageal reflux disease without esophagitis Plan to address problem: Continue home PPI (11) COPD (chronic obstructive pulmonary disease) Current Visit: Yes Status: Chronic Qualifiers: Chronic bronchitis type: unspecified Plan to address problem: Pulmonology consulted, appreciate recommendations Patient is now on Solu-Medrol Supportive care (12) DVT prophylaxis Current Visit: Yes Status: Acute Plan to address problem: SCDs to bilateral lower extremities while in bed Lovenox subcu History Interval history: 64 YO Female with COPD on home oxygen 3L, GERD, HTN, HLD, Anxiety, OA, ARDS, asthma presents to the emergency department on 03/13 with 5 days of worsening subjective fever, fatigue, muscle aches, generalized weakness, malaise, dry cough, decreased exercise intolerance, loss of sense of smell and taste, shortness of breath, nausea, multiple loose stools and diminished oral intake. Upon presentation patient was found to be tachypneic, tachycardic and febrile with temperature 101.9 acute hypoxemic respiratory failure with a pulse oximetry on room air of 86% on exertion. Her chest x-ray was compatible with bilateral pneumonia. She was admitted to the hospital service with sepsis as a COVID-19 PUI and infectious disease was consulted. Given patient's persistent hypoxia pulmonology was consulted. Today at the time of examination patient remains on high flow nasal cannula at 30L and 90% FiO2. Patient states that she feels johnny le bit better. Steroid taper started and remains on antibiotic therapy. VQ scan and bilateral lower extremities Dopplers still pending. HD #2 03/14: With acute hypoxemic respiratory failure, bilateral pneumonia, sepsis, Covid PCR pending, Patient resting comfortably in bed. Patient acknowledges improvement in shortness of breath. Patient denies pain. Day 3 03/15/2020: Patient on high flow oxygen. Continue IV Decadron and remdesivir Day #4 03/16/2020: Patient on high flow oxygen, continue IV Decadron and IV remdesivir Day#5 03/17/2020: Continue IV Decadron and IV remdesivir. Patient on 10 L nasal cannula oxygen Day #6 03/18/2020: Patient on 10 L nasal cannula oxygen Day #7 03/19/2020: Patient on high flow oxygen Day # 8 03/20/20: Patient on high flow oxygen 03/21/20: On High flow oxygen 03/22/2020: Patient on high flow oxygen from 40 L Patient does not keep her oxygen consistently as the nursing staff and respiratory therapist to decrease oxygen levels 03/23/2020:Patient still on high flow oxygen, Alert and oriented and cheerful 03/24/20: Patient is on high flow nasal cannula 03/25: remains on high flow O2 03/26: remain on 40L high flow O2, cont supportive care 03/27: Remains on high flow O2, continue to wean off O2 as tolerated. Continue to provide supportive care and monitor closely 03/28: HFNC 35 L 95%. Infectious disease has adjusted antibiotics. Pulmonology has started to taper up her steroid and recommends Lasix. Repeat labs in the a.m. CTA chest and bilateral lower extremity Doppler ultrasounds pending. Due to lack of IV access CTA chest was changed to a VQ scan Hospitalist Physical - Constitutional Vitals: Temp Pulse Resp BP Pulse Ox 98.6 F 132 H 22 121/55 100 03/29/20 04:49 03/29/20 04:49 03/29/20 04:49 03/29/20 04:49 03/29/20 08:34 General appearance: Present: mild distress, well-nourished - EENT Eyes: Present: EOM intact ENT: hearing intact, clear oral mucosa - Neck Neck: Present: normal ROM - Respiratory Respiratory effort: normal Respiratory: bilateral: diminished - Cardiovascular Rhythm: regular Heart Sounds: Present: S1 & S2. Absent: systolic murmur, diastolic murmur - Extremities Extremities: no ischemia, pulses intact, pulses symmetrical, No edema, normal temperature, normal color, Full ROM Peripheral Pulses: within normal limits - Abdominal General gastrointestinal: soft, non-tender, non-distended, normal bowel sounds - Integumentary Integumentary: Present: clear, warm, dry - Psychiatric Psychiatric: appropriate mood/affect, cooperative - Neurologic Neurologic: CNII-XII intact, no focal deficits, moves all extremities HEART Score - HEART Score Troponin: Troponin T < 0.010 ng/mL (0.00-0.029) 03/13/20 16:24 Results - Labs CBC & Chem 7: 03/29/20 05:07 03/29/20 14:39 Labs: Laboratory Last Values WBC 22.0 K/mm3 (4.5-11.0) H 03/29/20 05:07 RBC 3.99 M/mm3 (3.65-5.03) 03/29/20 05:07 Hgb 10.8 gm/dl (10.1-14.3) 03/29/20 05:07 Hct 33.3 % (30.3-42.9) 03/29/20 05:07 MCV 83 fl (79-97) 03/29/20 05:07 MCH 27 pg (28-32) L 03/29/20 05:07 MCHC 32 % (30-34) 03/29/20 05:07 RDW 16.0 % (13.2-15.2) H 03/29/20 05:07 Plt Count 330 K/mm3 (140-440) 03/29/20 05:07 Lymph % (Auto) 11.5 % (13.4-35.0) L 03/21/20 05:27 [place] % (Auto) 7.9 % (0.0-7.3) H 03/21/20 05:27 Eos % (Auto) 2.0 % (0.0-4.3) 03/21/20 05:27 Baso % (Auto) 0.2 % (0.0-1.8) 03/21/20 05:27 Lymph # (Auto) 1.6 K/mm3 (1.2-5.4) 03/21/20 05:27 [place] # (Auto) 1.1 K/mm3 (0.0-0.8) H 03/21/20 05:27 Eos # (Auto) 0.3 K/mm3 (0.0-0.4) 03/21/20 05:27 Baso # (Auto) 0.0 K/mm3 (0.0-0.1) 03/21/20 05:27 Add Manual Diff Complete 03/28/20 07:51 Total Counted 100 03/28/20 07:51 Seg Neutrophils % 78.4 % (40.0-70.0) H 03/21/20 05:27 Seg Neuts % (Manual) 86.0 % (40.0-70.0) H 03/28/20 07:51 Band Neutrophils % 3.0 % 03/27/20 08:21 Lymphocytes % (Manual) 10.0 % (13.4-35.0) L 03/28/20 07:51 Monocytes % (Manual) 4.0 % (0.0-7.3) 03/28/20 07:51 Nucleated RBC % Not Reportable 03/28/20 07:51 Seg Neutrophils # 11.1 K/mm3 (1.8-7.7) H 03/21/20 05:27 Seg Neutrophils # Man 27.7 K/mm3 (1.8-7.7) H 03/28/20 07:51 Band Neutrophils # 0.0 K/mm3 03/28/20 07:51 Lymphocytes # (Manual) 3.2 K/mm3 (1.2-5.4) 03/28/20 07:51 Abs React Lymphs (Man) 0.0 K/mm3 03/28/20 07:51 Monocytes # (Manual) 1.3 K/mm3 (0.0-0.8) H 03/28/20 07:51 Eosinophils # (Manual) 0.0 K/mm3 (0.0-0.4) 03/28/20 07:51 Basophils # (Manual) 0.0 K/mm3 (0.0-0.1) 03/28/20 07:51 Metamyelocytes # 0.0 K/mm3 03/28/20 07:51 Myelocytes # 0.0 K/mm3 03/28/20 07:51 Promyelocytes # 0.0 K/mm3 03/28/20 07:51 Blast Cells # 0.0 K/mm3 03/28/20 07:51 WBC Morphology Not Reportable 03/28/20 07:51 Hypersegmented Neuts Not Reportable 03/28/20 07:51 Hyposegmented Neuts Not Reportable 03/28/20 07:51 Hypogranular Neuts Not Reportable 03/28/20 07:51 Smudge Cells Not Reportable 03/28/20 07:51 Toxic Granulation Not Reportable 03/28/20 07:51 Toxic Vacuolation Few 03/28/20 07:51 Dohle Bodies Not Reportable 03/28/20 07:51 Pelger-Huet Anomaly Not Reportable 03/28/20 07:51 Natan Rods Not Reportable 03/28/20 07:51 Platelet Estimate Consistent w auto 03/28/20 07:51 Clumped Platelets Not Reportable 03/28/20 07:51 Plt Clumps, EDTA Not Reportable 03/28/20 07:51 Large Platelets Few 03/28/20 07:51 Giant Platelets Not Reportable 03/28/20 07:51 Platelet Satelliting Not Reportable 03/28/20 07:51 Plt Morphology Comment Not Reportable 03/28/20 07:51 RBC Morphology Normal 03/28/20 07:51 Dimorphic RBCs Not Reportable 03/28/20 07:51 Polychromasia Not Reportable 03/28/20 07:51 Hypochromasia Not Reportable 03/28/20 07:51 Poikilocytosis Not Reportable 03/28/20 07:51 Anisocytosis Not Reportable 03/28/20 07:51 Microcytosis Not Reportable 03/28/20 07:51 Macrocytosis Not Reportable 03/28/20 07:51 Spherocytes Not Reportable 03/28/20 07:51 Pappenheimer Bodies Not Reportable 03/28/20 07:51 Sickle Cells Not Reportable 03/28/20 07:51 Target Cells Not Reportable 03/28/20 07:51 Tear Drop Cells Not Reportable 03/28/20 07:51 Ovalocytes Not Reportable 03/28/20 07:51 Helmet Cells Not Reportable 03/28/20 07:51 [place] Bodies Not Reportable 03/28/20 07:51 [place] Rings Not Reportable 03/28/20 07:51 Alexia Cells Not Reportable 03/28/20 07:51 Bite Cells Not Reportable 03/28/20 07:51 Crenated Cell Not Reportable 03/28/20 07:51 Elliptocytes Not Reportable 03/28/20 07:51 Acanthocytes (Spur) Not Reportable 03/28/20 07:51 Rouleaux Not Reportable 03/28/20 07:51 Hemoglobin C Crystals Not Reportable 03/28/20 07:51 Schistocytes Not Reportable 03/28/20 07:51 Malaria parasites Not Reportable 03/28/20 07:51 [place] Bodies Not Reportable 03/28/20 07:51 Hem Pathologist Commnt No 03/28/20 07:51 PT 11.8 Sec. (12.2-14.9) L 03/13/20 16:24 INR 0.89 (0.87-1.13) 03/13/20 16:24 D-Dimer 1182.25 ng/mlDDU (0-234) H 03/28/20 07:51 Sodium 131 mmol/L (137-145) L 03/29/20 14:39 Potassium 4.0 mmol/L (3.6-5.0) 03/29/20 14:39 Chloride 91.7 mmol/L (98-107) L 03/29/20 14:39 Carbon Dioxide 31 mmol/L (22-30) H 03/29/20 14:39 Anion Gap 12 mmol/L 03/29/20 14:39 BUN 15 mg/dL (7-17) 03/29/20 14:39 Creatinine 0.6 mg/dL (0.6-1.2) 03/29/20 14:39 Estimated GFR > 60 ml/min 03/29/20 14:39 BUN/Creatinine Ratio 25 % 03/29/20 14:39 Glucose 328 mg/dL (65-100) H 03/29/20 14:39 Lactic Acid 1.70 mmol/L (0.7-2.0) 03/13/20 16:24 Calcium 8.9 mg/dL (8.4-10.2) 03/29/20 14:39 Magnesium 1.80 mg/dL (1.7-2.3) 03/13/20 16:24 Total Bilirubin 0.30 mg/dL (0.1-1.2) 03/21/20 05:27 Ferritin 514.4 ng/mL (10.0-200.0) H 03/28/20 07:51 Direct Bilirubin < 0.2 mg/dL (0-0.2) 03/16/20 05:18 Indirect Bilirubin 0.1 mg/dL 03/16/20 05:18 AST 12 units/L (5-40) 03/21/20 05:27 ALT 8 units/L (7-56) 03/21/20 05:27 Alkaline Phosphatase 72 units/L (35-129) 03/21/20 05:27 Lactate Dehydrogenase 218 units/L (91-180) H 03/29/20 05:07 Total Creatine Kinase 42 units/L (30-135) 03/13/20 16:24 Troponin T < 0.010 ng/mL (0.00-0.029) 03/13/20 16:24 C-Reactive Protein 18.00 mg/dL (0.00-1.30) H 03/29/20 05:07 NT-Pro-B Natriuret Pep 220.0 pg/mL (0-900) 03/25/20 15:14 Total Protein 7.3 g/dL (6.3-8.2) 03/21/20 05:27 Albumin 3.6 g/dL (3.9-5) L 03/21/20 05:27 Albumin/Globulin Ratio 1.0 % 03/21/20 05:27 Procalcitonin 1.16 ng/mL (<0.15) 03/27/20 18:45 Urine Color Yellow (Yellow) 03/28/20 17:48 Urine Turbidity Clear (Clear) 03/28/20 17:48 Urine pH 6.0 (5.0-7.0) 03/28/20 17:48 Ur Specific [place] 1.036 (1.003-1.030) H 03/28/20 17:48 Urine Protein 30 mg/dl mg/dL (Negative) 03/28/20 17:48 Urine Glucose (UA) >=500 mg/dL (Negative) 03/28/20 17:48 Urine Ketones Tr mg/dL (Negative) 03/28/20 17:48 Urine Blood Neg (Negative) 03/28/20 17:48 Urine Nitrite Neg (Negative) 03/28/20 17:48 Urine Bilirubin Neg (Negative) 03/28/20 17:48 Urine Urobilinogen < 2.0 mg/dL (<2.0) 03/28/20 17:48 Ur Leukocyte Esterase Tr (Negative) 03/28/20 17:48 Urine WBC (Auto) 5.0 /HPF (0.0-6.0) 03/28/20 17:48 Urine RBC (Auto) 2.0 /HPF (0.0-6.0) 03/28/20 17:48 U Epithel Cells (Auto) 2.0 /HPF (0-13.0) 03/28/20 17:48 Urine Mucus Few /HPF 03/28/20 17:48 Vancomycin Trough 5.7 ug/mL (5.0-20.0) 03/28/20 21:20 Coronavirus (PCR) Positive (Negative) A 03/14/20 Unknown SARS-CoV-2 IgG Ab Reactive (NonReactive) A 03/14/20 16:58 Microbiology: Microbiology 03/26/20 22:58 Peripheral/Venous Blood Culture - Preliminary NO GROWTH AFTER 48 HOURS 03/26/20 23:20 Peripheral/Venous Blood Culture - Preliminary NO GROWTH AFTER 48 HOURS [place]/IV: Voiding Method Bedside Commode IV Catheter Type [Left Forearm Peripheral IV ] IV Catheter Type [Right INT / Saline Lock Forearm] IV Catheter Type [Right Wrist] INT / Saline Lock IV Catheter Type [Right Hand] INT / Saline Lock IV Catheter Type [Left Upper INT / Saline Lock arm] IV Catheter Type [Left Peripheral IV Antecubital] Active Medications - Current Medications Current Medications: Generic Name Dose Route Start Last Admin Trade Name Freq PRN Reason Stop Dose Admin Acetaminophen 650 mg 03/13/20 17:21 03/28/20 08:32 Acetaminophen 325 Mg Tab PO 650 mg Q4H PRN Administration Pain MILD(1-3)/Fever >100.5/CARIAS Albuterol 2.5 mg 03/13/20 17:21 Albuterol 2.5 Mg/3 Ml Nebu IH Q4HRT PRN Shortness Of Breath Alprazolam 0.5 mg 03/25/20 20:27 03/26/20 20:21 Alprazolam 0.5 Mg Tab PO 0.5 mg Q8H PRN Administration Anxiety Amitriptyline HCl 10 mg 03/25/20 22:00 03/28/20 22:29 Amitriptyline 10 Mg Tab PO 10 mg QHS SANDY Administration Ascorbic Acid 1,000 mg 03/26/20 10:00 03/29/20 13:32 Ascorbic Acid 500 Mg Tab PO 1,000 mg BID SANDY Administration Benzonatate 100 mg 03/13/20 22:00 03/29/20 13:30 Benzonatate 100 Mg Cap PO 100 mg Q8HR SANDY Administration Duloxetine HCl 60 mg 03/14/20 10:00 03/29/20 09:57 Duloxetine 30 Mg Cap PO 60 mg QDAY SANDY Administration Enoxaparin Sodium 40 mg 03/23/20 22:00 03/28/20 22:27 Enoxaparin 40 Mg/0.4 Ml Inj SUB-Q 40 mg QDAY@2200 SANDY Administration Protocol Ergocalciferol 50,000 unit 03/20/20 10:00 03/27/20 16:01 Ergocalciferol (Vit D2) 50,000 Unit Cap PO 50,000 unit [place] SANDY Administration Famotidine 10 mg 03/13/20 22:00 03/29/20 00:00 Famotidine 10 Mg Tab PO 10 mg BID SANDY Administration Gabapentin 300 mg 03/13/20 20:00 03/29/20 13:30 Gabapentin 300 Mg Cap PO 300 mg TID SANDY Administration Guaifenesin 10 ml 03/13/20 17:24 03/25/20 02:10 Guaifenesin Dm 200/20 Mg Oral Liqd 10 Ml PO 10 ml Q4H PRN Administration Cough Hydroxyzine Pamoate 50 mg 03/13/20 22:00 03/29/20 18:11 Hydroxyzine Pamoate 50 Mg Cap PO 50 mg QID SANDY Administration Cefepime HCl 2 gm in 100 mls @ 200 mls/hr 03/28/20 15:00 03/29/20 09:57 Cefepime/Ns 2 Gm/100 Ml IV 200 mls/hr Q12HR SANDY Administration Protocol Vancomycin HCl 1 gm in 250 mls @ 250 mls/hr 03/29/20 10:00 03/29/20 18:11 Vancomycin/Ns 1 Gm/250 Ml IV 250 mls/hr Q8H SANDY Administration Lamotrigine 100 mg 03/14/20 10:00 03/29/20 09:57 Lamotrigine 100 Mg Tab PO 100 mg QDAY SANDY Administration [place] Carbonate 150 mg 03/13/20 22:00 03/29/20 10:06 [place] Carbonate 150 Mg Cap PO 150 mg BID SANDY Administration Methylprednisolone Sodium Succinate 20 mg 03/27/20 22:00 03/29/20 09:56 Methylprednisolone Sod Succinate 40 Mg/1 Ml Inj IV 20 mg BID SANDY Administration Methylprednisolone Sodium Succinate 20 mg 03/29/20 10:00 03/29/20 13:35 Methylprednisolone Sod Succinate 40 Mg/1 Ml Inj IV 03/31/20 10:01 Not Given DAILY SANDY Montelukast Sodium 10 mg 03/14/20 10:00 03/29/20 09:56 Montelukast 10 Mg Tab PO 10 mg DAILY SANDY Administration Ondansetron HCl 4 mg 03/13/20 17:21 03/29/20 05:25 Ondansetron 4 Mg/2 Ml Inj IV 4 mg Q8H PRN Administration Nausea And Vomiting Oxybutynin Chloride 5 mg 03/13/20 20:00 03/29/20 13:30 Oxybutynin 5 Mg Tab PO 5 mg TID SANDY Administration Phenol 1 spray 03/25/20 20:05 03/26/20 00:27 Phenol 1.4% 177 Ml Bottle MM 1 spray PRN PRN Administration Sore Throat Sodium Chloride 10 ml 03/13/20 22:00 03/29/20 09:58 Sodium Chloride 0.9% 10 Ml Flush Syringe IV 10 ml BID SANDY Administration Sodium Chloride 10 ml 03/13/20 17:21 Sodium Chloride 0.9% 10 Ml Flush Syringe IV PRN PRN LINE FLUSH Trazodone HCl 100 mg 03/13/20 22:00 03/28/20 22:27 Trazodone 100 Mg Tab PO 100 mg QHS SANDY Administration Zinc Sulfate 220 mg 03/26/20 10:00 03/29/20 09:57 Zinc Sulfate 220 Mg Cap PO 220 mg BID SANDY Administration Nutrition/Malnutrition Assess - Dietary Evaluation Nutrition/Malnutrition Findings: Nutrition Notes Start: 03/14/20 15:39 Freq: Status: Active Protocol: Document 03/29/20 13:55 LUIZ (Rec: 03/29/20 14:04 [email or web address] [id number]) Nutrition Notes Initial or Follow up Reassessment Current Diagnosis COPD,Sepsis,Hypertension, Hyperlipidemia Other Pertinent Diagnosis Pneu, COVID-19 (+), GERD Current Diet Cardiac + Ensure Enlive TID Labs/Tests BG 243 Pertinent Medications Vit C, Lasix, Zinc sulfate, Solumedrol Height 5 ft 1 in Weight 63 kg [place] Body Weight (kg) 47.72 BMI 26.2 Weight Status Appropriate Subjective/Other Information Unable to reach pt via phone at 11:53 and 13:55. She has consumed 54% of meals since last assessment. Percent of energy/protein needs met: 84% energy 73% pro Burn Absent Trauma Absent Current % PO Fair (50-74%) Minimum of two criteria No #1 Nutrition Diagnosis Inadequate oral intake As Evidenced by Signs and Symptoms pt consuming at least 50% of meals Diagnosis Progress(for reassessment Improved documentation) Is patient on ventilator? No Is Patient Ambulatory and/or Out of Bed Yes REE-([facility]-ambulatory/OOB) [ [id number] [id number]] Calculation Used for Recommendations [facility] Additional Notes Pro needs 1-1.2g/k-76g/ day Fluid needs 1ml/kcal Nutrition Intervention Change Diet Order: Continue current diet order Add Supplement/Snack (indicate name/kcal Change to Glucerna BID (sec to /protein ) elevated BG) Provides kCal: 440 Provides Protein (gm) 20 Goal #1 PO intake of meals plus ONS to meet at least 75% energy and pro needs Follow-Up By: 04/05/20 Additional Comments F/U: intakes (meals/ONS), BG labs
[2020-03-29] MEDS: FAMOTIDINE 10 MG TAB PO SCH ×3 (20:23→23:54)
[2020-03-29] MEDS: ENOXAPARIN 40 MG/0.4 ML INJ SUB-Q SCH (23:52)
[2020-03-29] MEDS: AMITRIPTYLINE 10 MG TAB PO SCH (23:52)
[2020-03-29] MEDS: traZODone 100 MG TAB PO SCH (23:52)
[2020-03-29] MEDS: FAMOTIDINE 20 MG TAB PO SCH (23:54)
[2020-03-30] MEDS: VANCOMYCIN/NS 1 GM/250 ML 1 GM/250 ML BAG IV SCH ×2 (02:06→15:14)
[2020-03-30 06:20] LABS: Hematocrit 33.6 % (30.3-42.9); Mean Corpuscular HGB Conc 33 % (30-34); Mean Corpuscular Volume 83 fl (79-97); Platelet Count 309 K/mm3 (140-440); Red Blood Count 4.04 M/mm3 (3.65-5.03); Red Cell Distribution Width 16.1 % (13.2-15.2)
[2020-03-30] MEDS: BENZONATATE 100 MG CAP PO SCH ×3 (06:38→23:34)
[2020-03-30 06:43] LABS: Blood Urea Nitrogen 17 mg/dL (7-17); Calcium 9.2 mg/dL (8.4-10.2); Hemolysis Index 1
[2020-03-30 06:44] LABS: BUN/Creatinine Ratio 28
--- NOTE | 2020-03-30 07:46 | Progress Note ---
Assessment and Plan 64 y/o female with acute on chronic respiratory failure secondary COVID 19 pneumonia. 1. continue to taper steroids to off given increased level of anxiety. 2. Would consider lasix therapy again despite only mildly elevated BNP. Having a net negative fluid balance can still help with oxygenation. I 3. Prone as tolerated during the day and sleep prone at night. Patient has been noncompliant with this. Did not prone again last night. 4. Abx therapy per ID 5. Guarded prognosis given prolonged high levels of flow and oxygen re quirements. 6. Would cancel V/Q scan. Cannot see patient transporting for this reason right now. If overall concern is VTE given elevated D-Dimer and positive SARS Cov2 would empirically treat with therapeutic lovenox or eliquis. Subjective Date of service: 03/30/20 Principal diagnosis: COVID/COPD Interval history: Oxygen requirement about the same. no fever. Remains tachycardic. Objective Vital Signs - 12hr 03/29/20 03/29/20 03/29/20 19:58 20:40 22:35 Temperature 98.2 F Pulse Rate 115 H Pulse Rate [ 108 H Apical] Respiratory 16 22 Rate Blood Pressure 118/65 O2 Sat by Pulse 92 88 95 Oximetry 03/30/20 03/30/20 02:00 03:46 Temperature 98.1 F Pulse Rate 117 H Pulse Rate [ Apical] Respiratory 16 Rate Blood Pressure 131/68 O2 Sat by Pulse 95 93 Oximetry Constitutional: alert, other (critically ill on HFNC) Eyes: non-icteric Neck: supple Effort: mildly labored Ascultation: Bilateral: clear, wheezes Cardiovascular: other (tachy, RR; no mrg) Gastrointestinal: normoactive bowel sounds, soft, non-tender Integumentary: normal Extremities: no cyanosis, no edema, pink and warm Neurologic: normal mental status, non-focal exam, CN II-XII normal Psychiatric: anxious, other (very fidgety) CBC and BMP: 03/30/20 05:09 03/30/20 05:09 ABG, PT/INR, D-dimer: PT/INR, D-dimer PT 11.8 Sec. (12.2-14.9) L 03/13/20 16:24 INR 0.89 (0.87-1.13) 03/13/20 16:24 D-Dimer 1182.25 ng/mlDDU (0-234) H 03/28/20 07:51 Abnormal lab findings: Abnormal Labs 03/13/20 03/13/20 03/13/20 16:24 16:24 16:24 WBC MCH RDW 16.8 H Plt Count Lymph % (Auto) 8.5 L [place] % (Auto) Lymph # (Auto) 0.6 L [place] # (Auto) Seg Neutrophils % 84.9 H Seg Neuts % (Manual) Lymphocytes % (Manual) Seg Neutrophils # Seg Neutrophils # Man Lymphocytes # (Manual) Monocytes # (Manual) PT 11.8 L D-Dimer 234.66 H Sodium 135 L Potassium 3.1 L Chloride Carbon Dioxide BUN Glucose 174 H Ferritin Lactate Dehydrogenase 277 H C-Reactive Protein 8.00 H Albumin 3.7 L Ur Specific [place] Coronavirus (PCR) SARS-CoV-2 IgG Ab 03/13/20 03/14/20 03/14/20 16:24 08:02 08:02 WBC 3.9 L MCH RDW 16.3 H Plt Count Lymph % (Auto) [place] % (Auto) 9.5 H Lymph # (Auto) 0.7 L [place] # (Auto) Seg Neutrophils % 72.9 H Seg Neuts % (Manual) Lymphocytes % (Manual) Seg Neutrophils # Seg Neutrophils # Man Lymphocytes # (Manual) Monocytes # (Manual) PT D-Dimer Sodium Potassium Chloride 107.4 H Carbon Dioxide BUN Glucose 174 H 142 H Ferritin Lactate Dehydrogenase 267 H C-Reactive Protein 8.10 H Albumin Ur Specific [place] Coronavirus (PCR) SARS-CoV-2 IgG Ab 03/14/20 03/14/20 03/14/20 16:58 16:58 Unknown WBC MCH RDW Plt Count Lymph % (Auto) [place] % (Auto) Lymph # (Auto) [place] # (Auto) Seg Neutrophils % Seg Neuts % (Manual) Lymphocytes % (Manual) Seg Neutrophils # Seg Neutrophils # Man Lymphocytes # (Manual) Monocytes # (Manual) PT D-Dimer Sodium Potassium Chloride Carbon Dioxide BUN Glucose Ferritin Lactate Dehydrogenase 277 H C-Reactive Protein 2.60 H Albumin Ur Specific [place] Coronavirus (PCR) Positive A SARS-CoV-2 IgG Ab Reactive A 03/16/20 03/16/20 03/16/20 05:18 05:18 10:34 WBC MCH RDW 16.4 H Plt Count Lymph % (Auto) [place] % (Auto) 10.0 H Lymph # (Auto) [place] # (Auto) Seg Neutrophils % Seg Neuts % (Manual) Lymphocytes % (Manual) Seg Neutrophils # Seg Neutrophils # Man Lymphocytes # (Manual) Monocytes # (Manual) PT D-Dimer 278.32 H Sodium Potassium 3.1 L Chloride Carbon Dioxide BUN Glucose Ferritin Lactate Dehydrogenase C-Reactive Protein Albumin 3.4 L Ur Specific [place] Coronavirus (PCR) SARS-CoV-2 IgG Ab 03/16/20 03/17/20 03/18/20 10:34 21:24 05:58 WBC 14.8 H MCH RDW 15.8 H Plt Count Lymph % (Auto) 11.5 L [place] % (Auto) Lymph # (Auto) [place] # (Auto) 1.0 H Seg Neutrophils % 81.3 H Seg Neuts % (Manual) Lymphocytes % (Manual) Seg Neutrophils # 12.0 H Seg Neutrophils # Man Lymphocytes # (Manual) Monocytes # (Manual) PT D-Dimer Sodium Potassium Chloride Carbon Dioxide BUN Glucose 182 H Ferritin Lactate Dehydrogenase 268 H 268 H C-Reactive Protein 2.10 H 4.90 H Albumin Ur Specific [place] Coronavirus (PCR) SARS-CoV-2 IgG Ab 03/18/20 03/21/20 03/21/20 05:58 05:27 05:27 WBC 14.1 H MCH 27 L RDW 16.1 H Plt Count 513 H Lymph % (Auto) 11.5 L [place] % (Auto) 7.9 H Lymph # (Auto) [place] # (Auto) 1.1 H Seg Neutrophils % 78.4 H Seg Neuts % (Manual) Lymphocytes % (Manual) Seg Neutrophils # 11.1 H Seg Neutrophils # Man Lymphocytes # (Manual) Monocytes # (Manual) PT D-Dimer Sodium Potassium 2.9 L* Chloride Carbon Dioxide 18 L BUN Glucose Ferritin Lactate Dehydrogenase C-Reactive Protein Albumin 3.6 L 3.6 L Ur Specific [place] Coronavirus (PCR) SARS-CoV-2 IgG Ab 03/22/20 03/22/20 03/22/20 15:45 15:45 15:45 WBC MCH RDW Plt Count Lymph % (Auto) [place] % (Auto) Lymph # (Auto) [place] # (Auto) Seg Neutrophils % Seg Neuts % (Manual) Lymphocytes % (Manual) Seg Neutrophils # Seg Neutrophils # Man Lymphocytes # (Manual) Monocytes # (Manual) PT D-Dimer 274.02 H Sodium Potassium Chloride Carbon Dioxide BUN Glucose Ferritin Lactate Dehydrogenase 259 H C-Reactive Protein 7.60 H Albumin Ur Specific [place] Coronavirus (PCR) SARS-CoV-2 IgG Ab 03/26/20 03/26/20 03/27/20 05:45 05:45 08:21 WBC 34.9 H MCH RDW 15.9 H Plt Count 579 H Lymph % (Auto) [place] % (Auto) Lymph # (Auto) [place] # (Auto) Seg Neutrophils % Seg Neuts % (Manual) Lymphocytes % (Manual) Seg Neutrophils # Seg Neutrophils # Man Lymphocytes # (Manual) Monocytes # (Manual) PT D-Dimer Sodium 130 L 130 L Potassium Chloride 86.0 L 88.5 L Carbon Dioxide 35 H BUN 22 H Glucose 227 H 326 H Ferritin Lactate Dehydrogenase 213 H C-Reactive Protein 34.50 H Albumin Ur Specific [place] Coronavirus (PCR) SARS-CoV-2 IgG Ab 03/27/20 03/27/20 03/27/20 08:21 18:45 18:45 WBC 42.1 H* MCH RDW 16.3 H Plt Count Lymph % (Auto) [place] % (Auto) Lymph # (Auto) [place] # (Auto) Seg Neutrophils % Seg Neuts % (Manual) 91.0 H Lymphocytes % (Manual) 2.0 L Seg Neutrophils # Seg Neutrophils # Man 38.3 H Lymphocytes # (Manual) 0.8 L Monocytes # (Manual) 1.7 H PT D-Dimer Sodium Potassium Chloride Carbon Dioxide BUN Glucose Ferritin 400.5 H Lactate Dehydrogenase C-Reactive Protein 49.70 H Albumin Ur Specific [place] Coronavirus (PCR) SARS-CoV-2 IgG Ab 03/28/20 03/28/20 03/28/20 07:51 07:51 07:51 WBC 32.2 H MCH 27 L RDW 16.3 H Plt Count Lymph % (Auto) [place] % (Auto) Lymph # (Auto) [place] # (Auto) Seg Neutrophils % Seg Neuts % (Manual) 86.0 H Lymphocytes % (Manual) 10.0 L Seg Neutrophils # Seg Neutrophils # Man 27.7 H Lymphocytes # (Manual) Monocytes # (Manual) 1.3 H PT D-Dimer 1182.25 H Sodium Potassium Chloride Carbon Dioxide BUN Glucose Ferritin 514.4 H Lactate Dehydrogenase C-Reactive Protein Albumin Ur Specific [place] Coronavirus (PCR) SARS-CoV-2 IgG Ab 03/28/20 03/28/20 03/29/20 07:51 17:48 05:07 WBC MCH RDW Plt Count Lymph % (Auto) [place] % (Auto) Lymph # (Auto) [place] # (Auto) Seg Neutrophils % Seg Neuts % (Manual) Lymphocytes % (Manual) Seg Neutrophils # Seg Neutrophils # Man Lymphocytes # (Manual) Monocytes # (Manual) PT D-Dimer Sodium 136 L Potassium Chloride 93.0 L Carbon Dioxide 35 H BUN Glucose 243 H Ferritin Lactate Dehydrogenase 218 H C-Reactive Protein 18.00 H Albumin Ur Specific [place] 1.036 H Coronavirus (PCR) SARS-CoV-2 IgG Ab 03/29/20 03/29/20 03/30/20 05:07 14:39 05:09 WBC 22.0 H 11.4 H MCH 27 L 27 L RDW 16.0 H 16.1 H Plt Count Lymph % (Auto) [place] % (Auto) Lymph # (Auto) [place] # (Auto) Seg Neutrophils % Seg Neuts % (Manual) Lymphocytes % (Manual) Seg Neutrophils # Seg Neutrophils # Man Lymphocytes # (Manual) Monocytes # (Manual) PT D-Dimer Sodium 131 L Potassium Chloride 91.7 L Carbon Dioxide 31 H BUN Glucose 328 H Ferritin Lactate Dehydrogenase C-Reactive Protein Albumin Ur Specific [place] Coronavirus (PCR) SARS-CoV-2 IgG Ab 03/30/20 05:09 WBC MCH RDW Plt Count Lymph % (Auto) [place] % (Auto) Lymph # (Auto) [place] # (Auto) Seg Neutrophils % Seg Neuts % (Manual) Lymphocytes % (Manual) Seg Neutrophils # Seg Neutrophils # Man Lymphocytes # (Manual) Monocytes # (Manual) PT D-Dimer Sodium 136 L Potassium Chloride 96.2 L Carbon Dioxide BUN Glucose 297 H Ferritin Lactate Dehydrogenase C-Reactive Protein Albumin Ur Specific [place] Coronavirus (PCR) SARS-CoV-2 IgG Ab
[2020-03-30] MEDS ORDERED: FUROSEMIDE 20 MG/2 ML INJ IV NR (08:00)
[2020-03-30] MEDS: CEFEPIME/NS 2 GM/100 ML 2 GM/100 ML BAG IV SCH ×2 (11:25→23:42)
[2020-03-30] MEDS: GABAPENTIN 300 MG CAP PO SCH ×3 (11:26→23:50)
[2020-03-30] MEDS: methylPREDNISolone Sod Succinate 40 MG/1 ML INJ IV SCH ×2 (11:26→11:31)
[2020-03-30] MEDS: FAMOTIDINE 20 MG TAB PO SCH ×2 (11:27→23:34)
[2020-03-30] MEDS: DULoxetine 30 MG CAP PO SCH (11:27)
[2020-03-30] MEDS: ASCORBIC ACID 500 MG TAB PO SCH ×2 (11:28→23:35)
[2020-03-30] MEDS: OXYBUTYNIN 5 MG TAB PO SCH ×3 (11:28→23:50)
[2020-03-30] MEDS: ZINC SULFATE 220 MG CAP PO SCH ×2 (11:28→23:36)
[2020-03-30] MEDS: lamoTRIgine 100 MG TAB PO SCH (11:30)
[2020-03-30] MEDS: MONTELUKAST 10 MG TAB PO SCH (11:30)
--- NOTE | 2020-03-30 13:29 | Progress Note ---
Assessment and Plan - Patient Problems (1) Sepsis Current Visit: Yes Status: Acute Qualifiers: Sepsis acute organ dysfunction status: with acute organ dysfunction Severe sepsis acute organ dysfunction type: acute respiratory failure Acute respiratory failure type: with hypoxia Severe sepsis shock status: without septic shock Plan to address problem: Patient presented with tachypnea, tachycardia, febrile at 102, acute respiratory failure with hypoxia and chest x-ray showed bilateral patchy infiltrate left greater than right. Patient positive for COVID-19 Infectious disease consulted S/p antibiotic therapy 03/13 blood cultures x2 no growth after 5 days (2) Pneumonia due to COVID-19 virus Current Visit: Yes Status: Acute Plan to address problem: 03/14 COVID-19 PCR positive 03/14 Covid 19 antibody positive, not a candidate for comments of plasma Chest x-ray showed bilateral patchy infiltrate left greater than right. S/p cefepime S/p remdesivir and Decadron Patient now on Solu-Medrol per pulmonology Trend inflammatory markers for wrist education Droplet/contact isolation OOB 3 times daily and as tolerated Supplemental oxygen as needed Anticoagulation per protocol Pulmonary hygiene Continue SPO2 monitoring Prone to sleep as tolerated Vitamin C, D, zinc (3) Acute hypoxemic respiratory failure Current Visit: Yes Status: Acute Plan to address problem: Patient presented with acute hypoxic respiratory failure Supplemental oxygen as needed Continue SPO2 monitoring Pulmonary hygiene (4) Leukocytosis Current Visit: Yes Status: Acute Plan to address problem: 03/18 WBC 14.8, 03/26 WBC 34.9, 03/27 WBC 42.1, 03/28 WBC 32, 03/29 WBC 22, 03/30 WBC 11.4 Patient is on steroid therapy Antibiotics adjusted by infectious disease given refractory leukemoid reaction Per infectious disease consider CT abdomen pelvis with contrast if WBCs remain elevated Trend CBC (5) Hyponatremia Current Visit: Yes Status: Acute Plan to address problem: 03/26 sodium 130, 03/28 sodium 136, 03/29 sodium 131, Na 136 Corrected sodium 132, 134, 135 Pseudohyponatremia Monitor neuro status Trend BMP (6) Hypochloremic alkalosis Current Visit: Yes Status: Acute Plan to address problem: 03/26 chloride 86, 03/28 chloride 93, 03/29 chloride 91, 03/30 Chloride 96.2 03/27 CO2 35, 03/28 CO2 35, 03/29 CO2 31, 03/30 CO2 96.2 Patient remains on high flow nasal cannula Trend BMP Patient is receiving Lasix therapy (7) Elevated d-dimer Current Visit: Yes Status: Acute Plan to address problem: 03/26 D-dimer 166, 03/28 D-dimer 1182 Anticoagulation per protocol 03/28 CTA chest was changed to VQ scan due to lack of IV access which is still pending at this time and eventually was canceled due to inability to obtain VQ scan 03/28 bilateral lower extremity Doppler ultrasound pending (8) Hypertension Current Visit: Yes Status: Chronic Qualifiers: Hypertension type: essential hypertension Qualified Code(s): I10 - Essential (primary) hypertension Plan to address problem: Continue home antihypertensive regimen Blood pressure monitoring per protocol Hydralazine as needed for SBP greater than 160 (9) Hyperlipidemia Current Visit: Yes Status: Chronic Qualifiers: Hyperlipidemia type: mixed hyperlipidemia Qualified Code(s): E78.2 - Mixed hyperlipidemia Plan to address problem: Continue home statin therapy (10) GERD (gastroesophageal reflux disease) Current Visit: Yes Status: Chronic Qualifiers: Esophagitis presence: without esophagitis Qualified Code(s): K21.9 - Gastro-esophageal reflux disease without esophagitis Plan to address problem: Continue home PPI (11) COPD (chronic obstructive pulmonary disease) Current Visit: Yes Status: Chronic Qualifiers: Chronic bronchitis type: unspecified Plan to address problem: Pulmonology consulted, appreciate recommendations Patient is now on Solu-Medrol Supportive care (12) DVT prophylaxis Current Visit: Yes Status: Acute Plan to address problem: SCDs to bilateral lower extremities while in bed Lovenox subcu History Interval history: 64 YO Female with COPD on home oxygen 3L, GERD, HTN, HLD, Anxiety, OA, ARDS, asthma presents to the emergency department on 03/13 with 5 days of worsening subjective fever, fatigue, muscle aches, generalized weakness, malaise, dry cough, decreased exercise intolerance, loss of sense of smell and taste, short ness of breath, nausea, multiple loose stools and diminished oral intake. Upon presentation patient was found to be tachypneic, tachycardic and febrile with temperature 101.9 acute hypoxemic respiratory failure with a pulse oximetry on room air of 86% on exertion. Her chest x-ray was compatible with bilateral pneumonia. She was admitted to the hospital service with sepsis secondary to COVID-19 and infectious disease and pulmonology was consulted. Patient refuses to prone to sleep because she states "I feel sick when me on my stomach" but "I do see from my side" given patient's persistent hypoxia pulmonology was consulted. At the time of my exam patient is on 30 L 100% FiO2 due to consis tent desaturations into the mid 80s per RT and RN. Patient complains of a headache, RN instructed to medicate. No acute events reported overnight. HD #2 03/14: With acute hypoxemic respiratory failure, bilateral pneumonia, sepsis, Covid PCR pending, Patient resting comfortably in bed. Patient acknowledges improvement in shortness of breath. Patient denies pain. Day 3 03/15/2020: Patient on high flow oxygen. Continue IV Decadron and remdesivir Day #4 03/16/2020: Patient on high flow oxygen, continue IV Decadron and IV remdesivir Day#5 03/17/2020: Continue IV Decadron and IV remdesivir. Patient on 10 L nasal cannula oxygen Day #6 03/18/2020: Patient on 10 L nasal cannula oxygen Day #7 03/19/2020: Patient on high flow oxygen Day # 8 03/20/20: Patient on high flow oxygen 03/21/20: On High flow oxygen 03/22/2020: Patient on high flow oxygen from 40 L Patient does not keep her oxygen consistently as the nursing staff and respiratory therapist to decrease oxygen levels 03/23/2020:Patient still on high flow oxygen, Alert and oriented and cheerful 03/24/20: Patient is on high flow nasal cannula 03/25: remains on high flow O2 03/26: remain on 40L high flow O2, cont supportive care 03/27: Remains on high flow O2, continue to wean off O2 as tolerated. Continue to provide supportive care and monitor closely 03/28: HFNC 35 L 95%. Infectious disease has adjusted antibiotics. Pulmonology has started to taper up her steroid and recommends Lasix. Repeat labs in the a.m. CTA chest and bilateral lower extremity Doppler ultrasounds pending. Due to lack of IV access CTA chest was changed to a VQ scan 03/29: remains on high flow nasal cannula at 30L and 90% FiO2. Steroid taper started and remains on antibiotic therapy. VQ scan and bilateral lower extremities Dopplers still pending. Hospitalist Physical - Constitutional Vitals: Temp Pulse Resp BP Pulse Ox 98.1 F 117 H 16 131/68 90 03/30/20 03:46 03/30/20 03:46 03/30/20 03:46 03/30/20 03:46 03/30/20 11:52 General appearance: Present: mild distress, well-nourished - EENT Eyes: Present: PERRL, EOM intact ENT: hearing intact, clear oral mucosa - Neck Neck: Present: normal ROM - Respiratory Respiratory effort: normal Respiratory: bilateral: diminished - Cardiovascular Rhythm: regular Heart Sounds: Present: S1 & S2. Absent: systolic murmur, diastolic murmur - Extremities Extremities: no ischemia, pulses intact, pulses symmetrical, No edema, normal temperature, normal color, Full ROM Peripheral Pulses: within normal limits - Abdominal General gastrointestinal: soft, non-tender, non-distended, normal bowel sounds - Integumentary Integumentary: Present: clear, warm, dry - Psychiatric Psychiatric: cooperative - Neurologic Neurologic: CNII-XII intact, no focal deficits, moves all extremities - Allied Health Allied health notes reviewed: nursing HEART Score - HEART Score Troponin: Troponin T < 0.010 ng/mL (0.00-0.029) 03/13/20 16:24 Results - Labs CBC & Chem 7: 03/30/20 05:09 03/30/20 05:09 Labs: Laboratory Last Values WBC 11.4 K/mm3 (4.5-11.0) H 03/30/20 05:09 RBC 4.04 M/mm3 (3.65-5.03) 03/30/20 05:09 Hgb 11.0 gm/dl (10.1-14.3) 03/30/20 05:09 Hct 33.6 % (30.3-42.9) 03/30/20 05:09 MCV 83 fl (79-97) 03/30/20 05:09 MCH 27 pg (28-32) L 03/30/20 05:09 MCHC 33 % (30-34) 03/30/20 05:09 RDW 16.1 % (13.2-15.2) H 03/30/20 05:09 Plt Count 309 K/mm3 (140-440) 03/30/20 05:09 Lymph % (Auto) 11.5 % (13.4-35.0) L 03/21/20 05:27 [place] % (Auto) 7.9 % (0.0-7.3) H 03/21/20 05:27 Eos % (Auto) 2.0 % (0.0-4.3) 03/21/20 05:27 Baso % (Auto) 0.2 % (0.0-1.8) 03/21/20 05:27 Lymph # (Auto) 1.6 K/mm3 (1.2-5.4) 03/21/20 05:27 [place] # (Auto) 1.1 K/mm3 (0.0-0.8) H 03/21/20 05:27 Eos # (Auto) 0.3 K/mm3 (0.0-0.4) 03/21/20 05:27 Baso # (Auto) 0.0 K/mm3 (0.0-0.1) 03/21/20 05:27 Add Manual Diff Complete 03/28/20 07:51 Total Counted 100 03/28/20 07:51 Seg Neutrophils % 78.4 % (40.0-70.0) H 03/21/20 05:27 Seg Neuts % (Manual) 86.0 % (40.0-70.0) H 03/28/20 07:51 Band Neutrophils % 3.0 % 03/27/20 08:21 Lymphocytes % (Manual) 10.0 % (13.4-35.0) L 03/28/20 07:51 Monocytes % (Manual) 4.0 % (0.0-7.3) 03/28/20 07:51 Nucleated RBC % Not Reportable 03/28/20 07:51 Seg Neutrophils # 11.1 K/mm3 (1.8-7.7) H 03/21/20 05:27 Seg Neutrophils # Man 27.7 K/mm3 (1.8-7.7) H 03/28/20 07:51 Band Neutrophils # 0.0 K/mm3 03/28/20 07:51 Lymphocytes # (Manual) 3.2 K/mm3 (1.2-5.4) 03/28/20 07:51 Abs React Lymphs (Man) 0.0 K/mm3 03/28/20 07:51 Monocytes # (Manual) 1.3 K/mm3 (0.0-0.8) H 03/28/20 07:51 Eosinophils # (Manual) 0.0 K/mm3 (0.0-0.4) 03/28/20 07:51 Basophils # (Manual) 0.0 K/mm3 (0.0-0.1) 03/28/20 07:51 Metamyelocytes # 0.0 K/mm3 03/28/20 07:51 Myelocytes # 0.0 K/mm3 03/28/20 07:51 Promyelocytes # 0.0 K/mm3 03/28/20 07:51 Blast Cells # 0.0 K/mm3 03/28/20 07:51 WBC Morphology Not Reportable 03/28/20 07:51 Hypersegmented Neuts Not Reportable 03/28/20 07:51 Hyposegmented Neuts Not Reportable 03/28/20 07:51 Hypogranular Neuts Not Reportable 03/28/20 07:51 Smudge Cells Not Reportable 03/28/20 07:51 Toxic Granulation Not Reportable 03/28/20 07:51 Toxic Vacuolation Few 03/28/20 07:51 Dohle Bodies Not Reportable 03/28/20 07:51 Pelger-Huet Anomaly Not Reportable 03/28/20 07:51 Natan Rods Not Reportable 03/28/20 07:51 Platelet Estimate Consistent w auto 03/28/20 07:51 Clumped Platelets Not Reportable 03/28/20 07:51 Plt Clumps, EDTA Not Reportable 03/28/20 07:51 Large Platelets Few 03/28/20 07:51 Giant Platelets Not Reportable 03/28/20 07:51 Platelet Satelliting Not Reportable 03/28/20 07:51 Plt Morphology Comment Not Reportable 03/28/20 07:51 RBC Morphology Normal 03/28/20 07:51 Dimorphic RBCs Not Reportable 03/28/20 07:51 Polychromasia Not Reportable 03/28/20 07:51 Hypochromasia Not Reportable 03/28/20 07:51 Poikilocytosis Not Reportable 03/28/20 07:51 Anisocytosis Not Reportable 03/28/20 07:51 Microcytosis Not Reportable 03/28/20 07:51 Macrocytosis Not Reportable 03/28/20 07:51 Spherocytes Not Reportable 03/28/20 07:51 Pappenheimer Bodies Not Reportable 03/28/20 07:51 Sickle Cells Not Reportable 03/28/20 07:51 Target Cells Not Reportable 03/28/20 07:51 Tear Drop Cells Not Reportable 03/28/20 07:51 Ovalocytes Not Reportable 03/28/20 07:51 Helmet Cells Not Reportable 03/28/20 07:51 [place] Bodies Not Reportable 03/28/20 07:51 [place] Rings Not Reportable 03/28/20 07:51 [place] Cells Not Reportable 03/28/20 07:51 Bite Cells Not Reportable 03/28/20 07:51 Crenated Cell Not Reportable 03/28/20 07:51 Elliptocytes Not Reportable 03/28/20 07:51 Acanthocytes (Spur) Not Reportable 03/28/20 07:51 Rouleaux Not Reportable 03/28/20 07:51 Hemoglobin C Crystals Not Reportable 03/28/20 07:51 Schistocytes Not Reportable 03/28/20 07:51 Malaria parasites Not Reportable 03/28/20 07:51 [place] Bodies Not Reportable 03/28/20 07:51 Hem Pathologist Commnt No 03/28/20 07:51 PT 11.8 Sec. (12.2-14.9) L 03/13/20 16:24 INR 0.89 (0.87-1.13) 03/13/20 16:24 D-Dimer 1182.25 ng/mlDDU (0-234) H 03/28/20 07:51 Sodium 136 mmol/L (137-145) L 03/30/20 05:09 Potassium 3.9 mmol/L (3.6-5.0) 03/30/20 05:09 Chloride 96.2 mmol/L (98-107) L 03/30/20 05:09 Carbon Dioxide 28 mmol/L (22-30) 03/30/20 05:09 Anion Gap 16 mmol/L 03/30/20 05:09 BUN 17 mg/dL (7-17) 03/30/20 05:09 Creatinine 0.6 mg/dL (0.6-1.2) 03/30/20 05:09 Estimated GFR > 60 ml/min 03/30/20 05:09 BUN/Creatinine Ratio 28 % 03/30/20 05:09 Glucose 297 mg/dL (65-100) H 03/30/20 05:09 Lactic Acid 1.70 mmol/L (0.7-2.0) 03/13/20 16:24 Calcium 9.2 mg/dL (8.4-10.2) 03/30/20 05:09 Magnesium 1.80 mg/dL (1.7-2.3) 03/13/20 16:24 Total Bilirubin 0.30 mg/dL (0.1-1.2) 03/21/20 05:27 Ferritin 514.4 ng/mL (10.0-200.0) H 03/28/20 07:51 Direct Bilirubin < 0.2 mg/dL (0-0.2) 03/16/20 05:18 Indirect Bilirubin 0.1 mg/dL 03/16/20 05:18 AST 12 units/L (5-40) 03/21/20 05:27 ALT 8 units/L (7-56) 03/21/20 05:27 Alkaline Phosphatase 72 units/L (35-129) 03/21/20 05:27 Lactate Dehydrogenase 218 units/L (91-180) H 03/29/20 05:07 Total Creatine Kinase 42 units/L (30-135) 03/13/20 16:24 Troponin T < 0.010 ng/mL (0.00-0.029) 03/13/20 16:24 C-Reactive Protein 18.00 mg/dL (0.00-1.30) H 03/29/20 05:07 NT-Pro-B Natriuret Pep 220.0 pg/mL (0-900) 03/25/20 15:14 Total Protein 7.3 g/dL (6.3-8.2) 03/21/20 05:27 Albumin 3.6 g/dL (3.9-5) L 03/21/20 05:27 Albumin/Globulin Ratio 1.0 % 03/21/20 05:27 Procalcitonin 1.16 ng/mL (<0.15) 03/27/20 18:45 Urine Color Yellow (Yellow) 03/28/20 17:48 Urine Turbidity Clear (Clear) 03/28/20 17:48 Urine pH 6.0 (5.0-7.0) 03/28/20 17:48 Ur Specific [place] 1.036 (1.003-1.030) H 03/28/20 17:48 Urine Protein 30 mg/dl mg/dL (Negative) 03/28/20 17:48 Urine Glucose (UA) >=500 mg/dL (Negative) 03/28/20 17:48 Urine Ketones Tr mg/dL (Negative) 03/28/20 17:48 Urine Blood Neg (Negative) 03/28/20 17:48 Urine Nitrite Neg (Negative) 03/28/20 17:48 Urine Bilirubin Neg (Negative) 03/28/20 17:48 Urine Urobilinogen < 2.0 mg/dL (<2.0) 03/28/20 17:48 Ur Leukocyte Esterase Tr (Negative) 03/28/20 17:48 Urine WBC (Auto) 5.0 /HPF (0.0-6.0) 03/28/20 17:48 Urine RBC (Auto) 2.0 /HPF (0.0-6.0) 03/28/20 17:48 U Epithel Cells (Auto) 2.0 /HPF (0-13.0) 03/28/20 17:48 Urine Mucus Few /HPF 03/28/20 17:48 Vancomycin Trough 5.7 ug/mL (5.0-20.0) 03/28/20 21:20 Coronavirus (PCR) Positive (Negative) A 03/14/20 Unknown SARS-CoV-2 IgG Ab Reactive (NonReactive) A 03/14/20 16:58 Microbiology: Microbiology 03/26/20 22:58 Peripheral/Venous Blood Culture - Preliminary NO GROWTH AFTER 72 HOURS 03/26/20 23:20 Peripheral/Venous Blood Culture - Preliminary NO GROWTH AFTER 72 HOURS Sore[place]en/IV: Voiding Method Bedside Commode IV Catheter Type [Left Forearm Peripheral IV ] IV Catheter Type [Right INT / Saline Lock Forearm] IV Catheter Type [Right Wrist] INT / Saline Lock IV Catheter Type [Right Hand] INT / Saline Lock IV Catheter Type [Left Upper INT / Saline Lock arm] IV Catheter Type [Left Peripheral IV Antecubital] Active Medications - Current Medications Current Medications: Generic Name Dose Route Start Last Admin Trade Name Freq PRN Reason Stop Dose Admin Acetaminophen 650 mg 03/13/20 17:21 03/28/20 08:32 Acetaminophen 325 Mg Tab PO 650 mg Q4H PRN Administration Pain MILD(1-3)/Fever >100.5/CARIAS Albuterol 2.5 mg 03/13/20 17:21 Albuterol 2.5 Mg/3 Ml Nebu IH Q4HRT PRN Shortness Of Breath Alprazolam 0.5 mg 03/25/20 20:27 03/26/20 20:21 Alprazolam 0.5 Mg Tab PO 0.5 mg Q8H PRN Administration Anxiety Amitriptyline HCl 10 mg 03/25/20 22:00 03/29/20 23:52 Amitriptyline 10 Mg Tab PO 10 mg QHS SANDY Administration Ascorbic Acid 1,000 mg 03/26/20 10:00 03/30/20 11:28 Ascorbic Acid 500 Mg Tab PO 1,000 mg BID SANDY Administration Benzonatate 100 mg 03/13/20 22:00 03/30/20 06:38 Benzonatate 100 Mg Cap PO 100 mg Q8HR SANDY Administration Duloxetine HCl 60 mg 03/14/20 10:00 03/30/20 11:27 Duloxetine 30 Mg Cap PO 60 mg QDAY SANDY Administration Enoxaparin Sodium 40 mg 03/23/20 22:00 03/29/20 23:52 Enoxaparin 40 Mg/0.4 Ml Inj SUB-Q 40 mg QDAY@2200 SANDY Administration Protocol Ergocalciferol 50,000 unit 03/20/20 10:00 03/27/20 16:01 Ergocalciferol (Vit D2) 50,000 Unit Cap PO 50,000 unit [place] SANDY Administration Famotidine 10 mg 03/29/20 23:00 03/30/20 11:27 Famotidine 20 Mg Tab PO 10 mg BID SANDY Administration Gabapentin 300 mg 03/13/20 20:00 03/30/20 11:26 Gabapentin 300 Mg Cap PO 300 mg TID SANDY Administration Guaifenesin 10 ml 03/13/20 17:24 03/25/20 02:10 Guaifenesin Dm 200/20 Mg Oral Liqd 10 Ml PO 10 ml Q4H PRN Administration Cough Hydroxyzine Pamoate 50 mg 03/13/20 22:00 03/30/20 11:27 Hydroxyzine Pamoate 50 Mg Cap PO 50 mg QID SANDY Administration Cefepime HCl 2 gm in 100 mls @ 200 mls/hr 03/28/20 15:00 03/30/20 11:25 Cefepime/Ns 2 Gm/100 Ml IV 200 mls/hr Q12HR SANDY Administration Protocol Vancomycin HCl 1 gm in 250 mls @ 250 mls/hr 03/29/20 10:00 03/30/20 02:06 Vancomycin/Ns 1 Gm/250 Ml IV 250 mls/hr Q8H SANDY Administration Lamotrigine 100 mg 03/14/20 10:00 03/30/20 11:30 Lamotrigine 100 Mg Tab PO 100 mg QDAY SANDY Administration [place] Carbonate 150 mg 03/13/20 22:00 03/29/20 23:52 [place] Carbonate 150 Mg Cap PO 150 mg BID SANDY Administration Methylprednisolone Sodium Succinate 20 mg 03/27/20 22:00 03/30/20 11:31 Methylprednisolone Sod Succinate 40 Mg/1 Ml Inj IV Not Given BID SANDY Methylprednisolone Sodium Succinate 20 mg 03/29/20 10:00 03/30/20 11:26 Methylprednisolone Sod Succinate 40 Mg/1 Ml Inj IV 03/31/20 10:01 20 mg DAILY SANDY Administration Montelukast Sodium 10 mg 03/14/20 10:00 03/30/20 11:30 Montelukast 10 Mg Tab PO 10 mg DAILY SANDY Administration Ondansetron HCl 4 mg 03/13/20 17:21 03/29/20 05:25 Ondansetron 4 Mg/2 Ml Inj IV 4 mg Q8H PRN Administration Nausea And Vomiting Oxybutynin Chloride 5 mg 03/13/20 20:00 03/30/20 11:28 Oxybutynin 5 Mg Tab PO 5 mg TID SANDY Administration Oxycodone/Acetaminophen 1 tab 03/30/20 08:06 Oxycodone /Acetaminophen 5-325mg Tab PO Q6H PRN Pain, Moderate (4-6) Phenol 1 spray 03/25/20 20:05 03/26/20 00:27 Phenol 1.4% 177 Ml Bottle MM 1 spray PRN PRN Administration Sore Throat Sodium Chloride 10 ml 03/13/20 22:00 03/30/20 11:31 Sodium Chloride 0.9% 10 Ml Flush Syringe IV 10 ml BID SANDY Administration Sodium Chloride 10 ml 03/13/20 17:21 Sodium Chloride 0.9% 10 Ml Flush Syringe IV PRN PRN LINE FLUSH Trazodone HCl 100 mg 03/13/20 22:00 03/29/20 23:52 Trazodone 100 Mg Tab PO 100 mg QHS SANDY Administration Zinc Sulfate 220 mg 03/26/20 10:00 03/30/20 11:28 Zinc Sulfate 220 Mg Cap PO 220 mg BID SANDY Administration Nutrition/Malnutrition Assess - Dietary Evaluation Nutrition/Malnutrition Findings: Nutrition Notes Start: 03/14/20 15:39 Freq: Status: Active Protocol: Document 03/29/20 13:55 [facility] (Rec: 03/29/20 14:04 NHALL [id number]) Nutrition Notes Initial or Follow up Reassessment Current Diagnosis COPD,Sepsis,Hypertension, Hyperlipidemia Other Pertinent Diagnosis Pneu, COVID-19 (+), GERD Current Diet Cardiac + Ensure Enlive TID Labs/Tests BG 243 Pertinent Medications Vit C, Lasix, Zinc sulfate, Solumedrol Height 5 ft 1 in Weight 63 kg [place] Body Weight (kg) 47.72 BMI 26.2 Weight Status Appropriate Subjective/Other Information Unable to reach pt via phone at 11:53 and 13:55. She has consumed 54% of meals since last assessment. Percent of energy/protein needs met: 84% energy 73% pro Burn Absent Trauma Absent Current % PO Fair (50-74%) Minimum of two criteria No #1 Nutrition Diagnosis Inadequate oral intake As Evidenced by Signs and Symptoms pt consuming at least 50% of meals Diagnosis Progress(for reassessment Improved documentation) Is patient on ventilator? No Is Patient Ambulatory and/or Out of Bed Yes REE-([place]-ambulatory/OOB) [ [id number] [id number]] Calculation Used for Recommendations [facility] Additional Notes Pro needs 1-1.2g/k-76g/ day Fluid needs 1ml/kcal Nutrition Intervention Change Diet Order: Continue current diet order Add Supplement/Snack (indicate name/kcal Change to Glucerna BID (sec to /protein ) elevated BG) Provides kCal: 440 Provides Protein (gm) 20 Goal #1 PO intake of meals plus ONS to meet at least 75% energy and pro needs Follow-Up By: 04/05/20 Additional Comments F/U: intakes (meals/ONS), BG labs
--- NOTE | 2020-03-30 14:38 | Progress Note ---
Assessment and Plan Cultures: Blood culture no growth SARS CoV2 PCR positive SARS Covid 2 IgG positive 03/26/2020 blood culture: no growth Assessment: 64 years old female with history of COPD on 3 L home O2, GERD, hypertension, hyperlipidemia, anxiety, asthma, admitted on 03/13/2020 secondary to 5-day history of generalized malaise, weakness, fever, dry cough, shortness of breath and dyspnea on exertion: #Severe COVID pneumonia/Bacterial pneumonia: Procalcitonin elevated likely a bacterial component, had completed cefepime. Completed remdesivir and decadron. SARS CoV-2 IgG is positive, patient is not a candidate for COVID convalescent plasma. #Acute on chronic hypoxemic respiratory failure: Patient is on 3 L at home, currently on HFNC. #COPD with exacerbation #Diarrhea: Likely secondary to COVID-19. Recommendations: -Completed remdesivir and decadron -Continue steroids, now on solumedrol per pulmonary -WBC improving, continue empiric abx: Cefepime + Vancomycin, stop after tomorrow's doses -f/u VTE evaluation Angel Li MD, FACP [facility] ([facility] O: [phone] F: [phone] Subjective Date of service: 03/30/20 Principal diagnosis: COVID/COPD Interval history: Afebrile. Remains on high flow oxygen. Objective - Exam Narrative Exam: Physical Exam (reviewed in chart to minimize risk of transmission) Constitutional: deferred Head, Ears, Nose: deferred Eyes: deferred Neck: deferred Oral: deferred Cardiovascular: deferred Respiratory: deferred GI: deferred Musculoskeletal: deferred Skin: deferred Hem/Lymphatic: deferred Psych: deferred Neurological: deferred - Constitutional Vitals: Vital Signs Temp Pulse Resp BP Pulse Ox 98.1 F 117 H 16 131/68 90 03/30/20 03:46 03/30/20 03:46 03/30/20 03:46 03/30/20 03:46 03/30/20 11:52 Temperature -Last 24 Hours Temperature 98.1 F Temperature 98.2 F - Labs CBC & Chem 7: 03/30/20 05:09 03/30/20 05:09 Labs: Abnormal lab results 03/29/20 03/30/20 03/30/20 Range/Units 14:39 05:09 05:09 WBC 11.4 H (4.5-11.0) K/mm3 MCH 27 L (28-32) pg RDW 16.1 H (13.2-15.2) % Sodium 131 L 136 L (137-145) mmol/L Chloride 91.7 L 96.2 L (98-107) mmol/L Carbon Dioxide 31 H (22-30) mmol/L Glucose 328 H 297 H (65-100) mg/dL
[2020-03-30] MEDS: ONDANSETRON 4 MG/2 ML INJ IV PRN ×2 (14:51→23:50)
[2020-03-30] MEDS: ACETAMINOPHEN 325 MG TAB PO PRN ×2 (14:52→23:35)
[2020-03-30] MEDS: AMITRIPTYLINE 10 MG TAB PO SCH (23:34)
[2020-03-30] MEDS: traZODone 100 MG TAB PO SCH (23:35)
[2020-03-30] MEDS: ALPRAZolam 0.5 MG TAB PO PRN (23:35)
[2020-03-30] MEDS: LITHIUM CARBONATE 150 MG CAP PO SCH (23:35)
[2020-03-30] MEDS: ENOXAPARIN 40 MG/0.4 ML INJ SUB-Q SCH (23:36)
[2020-03-31] MEDS: BENZONATATE 100 MG CAP PO SCH ×3 (05:56→23:16)
[2020-03-31] MEDS: VANCOMYCIN/NS 1 GM/250 ML 1 GM/250 ML BAG IV SCH (06:01)
--- NOTE | 2020-03-31 08:09 | Vascular Lab Report ---
DUPLEX DOPPLER LOWER EXTREMITY VEINS, BILATERAL INDICATION: r/o dvt. Respiratory failure. Covid positive. TECHNIQUE: Duplex doppler imaging was performed through the veins of both lower extremities using ve nous compression and other maneuvers. COMPARISON: No relevant prior imaging study available. FINDINGS: Right Common femoral vein: Negative. Right Superficial femoral vein: Negative. Right Popliteal vein: Negative. Right Calf veins: Negative. Left Common femoral vein: Negative. Left Superficial femoral vein: Negative. Left Popliteal vein: Negative. Left Calf veins: Negative. Additional findings: None. IMPRESSION: No sonographic evidence for DVT in either lower extremity. Signer Name: Jeet Matt Jr, MD Signed: 03/31/2020 8:05 AM Workstation Name: [id number]
[2020-03-31] MEDS: CEFEPIME/NS 2 GM/100 ML 2 GM/100 ML BAG IV SCH (09:19)
[2020-03-31] MEDS: GABAPENTIN 300 MG CAP PO SCH ×3 (09:19→23:15)
[2020-03-31] MEDS: lamoTRIgine 100 MG TAB PO SCH (09:19)
[2020-03-31] MEDS: FAMOTIDINE 20 MG TAB PO SCH ×2 (09:19→23:15)
[2020-03-31] MEDS: MONTELUKAST 10 MG TAB PO SCH (09:19)
[2020-03-31] MEDS: DULoxetine 30 MG CAP PO SCH (09:19)
[2020-03-31] MEDS: methylPREDNISolone Sod Succinate 40 MG/1 ML INJ IV SCH (09:20)
[2020-03-31] MEDS: OXYBUTYNIN 5 MG TAB PO SCH ×3 (09:20→23:16)
[2020-03-31] MEDS: ZINC SULFATE 220 MG CAP PO SCH ×2 (09:20→23:16)
[2020-03-31] MEDS: ASCORBIC ACID 500 MG TAB PO SCH ×2 (09:20→23:16)
[2020-03-31] MEDS: LITHIUM CARBONATE 150 MG CAP PO SCH ×3 (09:27→23:15)
--- NOTE | 2020-03-31 10:53 | Progress Note ---
Assessment and Plan - Patient Problems (1) Sepsis Current Visit: Yes Status: Acute Qualifiers: Sepsis acute organ dysfunction status: with acute organ dysfunction Severe sepsis acute organ dysfunction type: acute respiratory failure Acute respiratory failure type: with hypoxia Severe sepsis shock status: without septic shock Plan to address problem: Patient presented with tachypnea, tachycardia, febrile at 102, acute respiratory failure with hypoxia and chest x-ray showed bilateral patchy infiltrate left greater than right. Patient positive for COVID-19 Infectious disease consulted S/p antibiotic therapy 03/13 blood cultures x2 no growth after 5 days (2) Pneumonia due to COVID-19 virus Current Visit: Yes Status: Acute Plan to address problem: 03/14 COVID-19 PCR positive 03/14 Covid 19 antibody positive, not a candidate for comments of plasma Chest x-ray showed bilateral patchy infiltrate left greater than right. S/p cefepime S/p remdesivir and Decadron Patient now on Solu-Medrol per pulmonology Trend inflammatory markers for wrist education Droplet/contact isolation OOB 3 times daily and as tolerated Supplemental oxygen as needed Anticoagulation per protocol Pulmonary hygiene Continue SPO2 monitoring Prone to sleep as tolerated Vitamin C, D, zinc (3) Acute hypoxemic respiratory failure Current Visit: Yes Status: Acute Plan to address problem: Patient presented with acute hypoxic respiratory failure Supplemental oxygen as needed Continue SPO2 monitoring Pulmonary hygiene (4) Leukocytosis Current Visit: Yes Status: Acute Plan to address problem: 03/18 WBC 14.8, 03/26 WBC 34.9, 03/27 WBC 42.1, 03/28 WBC 32, 03/29 WBC 22, 03/30 WBC 11.4 Patient is on steroid therapy Antibiotics adjusted by infectious disease given refractory leukemoid reaction Per infectious disease consider CT abdomen pelvis with contrast if WBCs remain elevated Trend CBC (5) Hyponatremia Current Visit: Yes Status: Acute Plan to address problem: 03/26 sodium 130, 03/28 sodium 136, 03/29 sodium 131, Na 136 Corrected sodium 132, 134, 135 Pseudohyponatremia Monitor neuro status Trend BMP (6) Hypochloremic alkalosis Current Visit: Yes Status: Acute Plan to address problem: 03/26 chloride 86, 03/28 chloride 93, 03/29 chloride 91, 03/30 Chloride 96.2 03/27 CO2 35, 03/28 CO2 35, 03/29 CO2 31, 03/30 CO2 96.2 Patient remains on high flow nasal cannula Trend BMP Patient is receiving Lasix therapy (7) Elevated d-dimer Current Visit: Yes Status: Acute Plan to address problem: 03/26 D-dimer 166, 03/28 D-dimer 1182 Anticoagulation per protocol 03/28 CTA chest was changed to VQ scan due to lack of IV access which is still pending at this time and eventually was canceled due to inability to obtain VQ scan 03/28 bilateral lower extremity Doppler ultrasound pending (8) Hypertension Current Visit: Yes Status: Chronic Qualifiers: Hypertension type: essential hypertension Qualified Code(s): I10 - Essential (primary) hypertension Plan to address problem: Continue home antihypertensive regimen Blood pressure monitoring per protocol Hydralazine as needed for SBP greater than 160 (9) Hyperlipidemia Current Visit: Yes Status: Chronic Qualifiers: Hyperlipidemia type: mixed hyperlipidemia Qualified Code(s): E78.2 - Mixed hyperlipidemia Plan to address problem: Continue home statin therapy (10) GERD (gastroesophageal reflux disease) Current Visit: Yes Status: Chronic Qualifiers: Esophagitis presence: without esophagitis Qualified Code(s): K21.9 - Gastro-esophageal reflux disease without esophagitis Plan to address problem: Continue home PPI (11) COPD (chronic obstructive pulmonary disease) Current Visit: Yes Status: Chronic Qualifiers: Chronic bronchitis type: unspecified Plan to address problem: Pulmonology consulted, appreciate recommendations Patient is now on Solu-Medrol Supportive care (12) DVT prophylaxis Current Visit: Yes Status: Acute Plan to address problem: SCDs to bilateral lower extremities while in bed Lovenox subcu History Interval history: 64 YO Female with COPD on home oxygen 3L, GERD, HTN, HLD, Anxiety, OA, ARDS, asthma presents to the emergency department on 03/13 with 5 days of worsening subjective fever, fatigue, muscle aches, generalized weakness, malaise, dry cough, decreased exercise intolerance, loss of sense of smell and taste, short ness of breath, nausea, multiple loose stools and diminished oral intake. Upon presentation patient was found to be tachypneic, tachycardic and febrile with temperature 101.9 acute hypoxemic respiratory failure with a pulse oximetry on room air of 86% on exertion. Her chest x-ray was compatible with bilateral pneumonia. She was admitted to the hospital service with sepsis secondary to COVID-19 and infectious disease and pulmonology was consulted. Patient still complains of "diarrhea" and she remains on 30 L 100% FiO2 high flow nasal cannula with her saturations in the high 90s at the time of examination. Patient still refusing to prone while sleeping. No acute events reported overnight. HD #2 03/14: With acute hypoxemic respiratory failure, bilateral pneumonia, sepsis, Covid PCR pending, Patient resting comfortably in bed. Patient acknowledges improvement in shortness of breath. Patient denies pain. Day 3 03/15/2020: Patient on high flow oxygen. Continue IV Decadron and rem desivir Day #4 03/16/2020: Patient on high flow oxygen, continue IV Decadron and IV remdesivir Day#5 03/17/2020: Continue IV Decadron and IV remdesivir. Patient on 10 L nasal cannula oxygen Day #6 03/18/2020: Patient on 10 L nasal cannula oxygen Day #7 03/19/2020: Patient on high flow oxygen Day # 8 03/20/20: Patient on high flow oxygen 03/21/20: On High flow oxygen 03/22/2020: Patient on high flow oxygen from 40 L Patient does not keep her oxygen consistently as the nursing staff and respiratory therapist to decrease oxygen levels 03/23/2020:Patient still on high flow oxygen, Alert and oriented and cheerful 03/24/20: Patient is on high flow nasal cannula 03/25: remains on high flow O2 03/26: remain on 40L high flow O2, cont supportive care 03/27: Remains on high flow O2, continue to wean off O2 as tolerated. Continue to provide supportive care and monitor closely 03/28: HFNC 35 L 95%. Infectious disease has adjusted antibiotics. Pulmonology has started to taper up her steroid and recommends Lasix. Repeat labs in the a.m. CTA chest and bilateral lower extremity Doppler ultrasounds pending. Due to lack of IV access CTA chest was changed to a VQ scan 03/29: remains on high flow nasal cannula at 30L and 90% FiO2. Steroid taper started and remains on antibiotic therapy. VQ scan and bilateral lower extremities Dopplers still pending. 03/30: Patient refuses to prone to sleep because she states "I feel sick when me on my stomach" but "I do see from my side" given patient's persistent hypoxia pulmonology was consulted. At the time of my exam patient is on 30 L 100% FiO2 due to consistent desaturations into the mid 80s per RT and RN. Patient complains of a headache, RN instructed to medicate. No acute events reported overnight. Hospitalist Physical - Constitutional Vitals: Temp Pulse Resp BP Pulse Ox 97.6 F 112 H 22 134/76 94 03/30/20 21:08 03/31/20 03:46 03/31/20 03:46 03/31/20 03:46 03/31/20 08:00 General appearance: Present: mild distress, well-nourished - EENT Eyes: Present: EOM intact ENT: hearing intact, clear oral mucosa - Neck Neck: Present: normal ROM - Respiratory Respiratory effort: normal Respiratory: bilateral: diminished - Cardiovascular Rhythm: regular Heart Sounds: Present: S1 & S2. Absent: systolic murmur, diastolic murmur - Extremities Extremities: no ischemia, pulses intact, pulses symmetrical, No edema, normal temperature, normal color, Full ROM Peripheral Pulses: within normal limits - Abdominal General gastrointestinal: soft, non-tender, non-distended, normal bowel sounds - Integumentary Integumentary: Present: clear, warm, dry - Psychiatric Psychiatric: appropriate mood/affect - Neurologic Neurologic: CNII-XII intact, no focal deficits, moves all extremities HEART Score - HEART Score Troponin: Troponin T < 0.010 ng/mL (0.00-0.029) 03/13/20 16:24 Results - Labs CBC & Chem 7: 03/30/20 05:09 03/30/20 05:09 Labs: Laboratory Last Values WBC 11.4 K/mm3 (4.5-11.0) H 03/30/20 05:09 RBC 4.04 M/mm3 (3.65-5.03) 03/30/20 05:09 Hgb 11.0 gm/dl (10.1-14.3) 03/30/20 05:09 Hct 33.6 % (30.3-42.9) 03/30/20 05:09 MCV 83 fl (79-97) 03/30/20 05:09 MCH 27 pg (28-32) L 03/30/20 05:09 MCHC 33 % (30-34) 03/30/20 05:09 RDW 16.1 % (13.2-15.2) H 03/30/20 05:09 Plt Count 309 K/mm3 (140-440) 03/30/20 05:09 Lymph % (Auto) 11.5 % (13.4-35.0) L 03/21/20 05:27 Gillespie % (Auto) 7.9 % (0.0-7.3) H 03/21/20 05:27 Eos % (Auto) 2.0 % (0.0-4.3) 03/21/20 05:27 Baso % (Auto) 0.2 % (0.0-1.8) 03/21/20 05:27 Lymph # (Auto) 1.6 K/mm3 (1.2-5.4) 03/21/20 05:27 Gillespie # (Auto) 1.1 K/mm3 (0.0-0.8) H 03/21/20 05:27 Eos # (Auto) 0.3 K/mm3 (0.0-0.4) 03/21/20 05:27 Baso # (Auto) 0.0 K/mm3 (0.0-0.1) 03/21/20 05:27 Add Manual Diff Complete 03/28/20 07:51 Total Counted 100 03/28/20 07:51 Seg Neutrophils % 78.4 % (40.0-70.0) H 03/21/20 05:27 Seg Neuts % (Manual) 86.0 % (40.0-70.0) H 03/28/20 07:51 Band Neutrophils % 3.0 % 03/27/20 08:21 Lymphocytes % (Manual) 10.0 % (13.4-35.0) L 03/28/20 07:51 Monocytes % (Manual) 4.0 % (0.0-7.3) 03/28/20 07:51 Nucleated RBC % Not Reportable 03/28/20 07:51 Seg Neutrophils # 11.1 K/mm3 (1.8-7.7) H 03/21/20 05:27 Seg Neutrophils # Man 27.7 K/mm3 (1.8-7.7) H 03/28/20 07:51 Band Neutrophils # 0.0 K/mm3 03/28/20 07:51 Lymphocytes # (Manual) 3.2 K/mm3 (1.2-5.4) 03/28/20 07:51 Abs React Lymphs (Man) 0.0 K/mm3 03/28/20 07:51 Monocytes # (Manual) 1.3 K/mm3 (0.0-0.8) H 03/28/20 07:51 Eosinophils # (Manual) 0.0 K/mm3 (0.0-0.4) 03/28/20 07:51 Basophils # (Manual) 0.0 K/mm3 (0.0-0.1) 03/28/20 07:51 Metamyelocytes # 0.0 K/mm3 03/28/20 07:51 Myelocytes # 0.0 K/mm3 03/28/20 07:51 Promyelocytes # 0.0 K/mm3 03/28/20 07:51 Blast Cells # 0.0 K/mm3 03/28/20 07:51 WBC Morphology Not Reportable 03/28/20 07:51 Hypersegmented Neuts Not Reportable 03/28/20 07:51 Hyposegmented Neuts Not Reportable 03/28/20 07:51 Hypogranular Neuts Not Reportable 03/28/20 07:51 Smudge Cells Not Reportable 03/28/20 07:51 Toxic Granulation Not Reportable 03/28/20 07:51 Toxic Vacuolation Few 03/28/20 07:51 Dohle Bodies Not Reportable 03/28/20 07:51 Pelger-Huet Anomaly Not Reportable 03/28/20 07:51 Natan Rods Not Reportable 03/28/20 07:51 Platelet Estimate Consistent w auto 03/28/20 07:51 Clumped Platelets Not Reportable 03/28/20 07:51 Plt Clumps, EDTA Not Reportable 03/28/20 07:51 Large Platelets Few 03/28/20 07:51 Giant Platelets Not Reportable 03/28/20 07:51 Platelet Satelliting Not Reportable 03/28/20 07:51 Plt Morphology Comment Not Reportable 03/28/20 07:51 RBC Morphology Normal 03/28/20 07:51 Dimorphic RBCs Not Reportable 03/28/20 07:51 Polychromasia Not Reportable 03/28/20 07:51 Hypochromasia Not Reportable 03/28/20 07:51 Poikilocytosis Not Reportable 03/28/20 07:51 Anisocytosis Not Reportable 03/28/20 07:51 Microcytosis Not Reportable 03/28/20 07:51 Macrocytosis Not Reportable 03/28/20 07:51 Spherocytes Not Reportable 03/28/20 07:51 Pappenheimer Bodies Not Reportable 03/28/20 07:51 Sickle Cells Not Reportable 03/28/20 07:51 Target Cells Not Reportable 03/28/20 07:51 Tear Drop Cells Not Reportable 03/28/20 07:51 Ovalocytes Not Reportable 03/28/20 07:51 Helmet Cells Not Reportable 03/28/20 07:51 Mes[place]-Ai Bodies Not Reportable 03/28/20 07:51 [place] Rings Not Reportable 03/28/20 07:51 [place] Cells Not Reportable 03/28/20 07:51 Bite Cells Not Reportable 03/28/20 07:51 Crenated Cell Not Reportable 03/28/20 07:51 Elliptocytes Not Reportable 03/28/20 07:51 Acanthocytes (Spur) Not Reportable 03/28/20 07:51 Rouleaux Not Reportable 03/28/20 07:51 Hemoglobin C Crystals Not Reportable 03/28/20 07:51 Schistocytes Not Reportable 03/28/20 07:51 Malaria parasites Not Reportable 03/28/20 07:51 [place] Bodies Not Reportable 03/28/20 07:51 Hem Pathologist Commnt No 03/28/20 07:51 PT 11.8 Sec. (12.2-14.9) L 03/13/20 16:24 INR 0.89 (0.87-1.13) 03/13/20 16:24 D-Dimer 734.03 ng/mlDDU (0-234) H 03/31/20 05:43 Sodium 136 mmol/L (137-145) L 03/30/20 05:09 Potassium 3.9 mmol/L (3.6-5.0) 03/30/20 05:09 Chloride 96.2 mmol/L (98-107) L 03/30/20 05:09 Carbon Dioxide 28 mmol/L (22-30) 03/30/20 05:09 Anion Gap 16 mmol/L 03/30/20 05:09 BUN 17 mg/dL (7-17) 03/30/20 05:09 Creatinine 0.6 mg/dL (0.6-1.2) 03/30/20 05:09 Estimated GFR > 60 ml/min 03/30/20 05:09 BUN/Creatinine Ratio 28 % 03/30/20 05:09 Glucose 297 mg/dL (65-100) H 03/30/20 05:09 Lactic Acid 1.70 mmol/L (0.7-2.0) 03/13/20 16:24 Calcium 9.2 mg/dL (8.4-10.2) 03/30/20 05:09 Magnesium 1.80 mg/dL (1.7-2.3) 03/13/20 16:24 Total Bilirubin 0.30 mg/dL (0.1-1.2) 03/21/20 05:27 Ferritin 404.1 ng/mL (10.0-200.0) H 03/31/20 05:43 Direct Bilirubin < 0.2 mg/dL (0-0.2) 03/16/20 05:18 Indirect Bilirubin 0.1 mg/dL 03/16/20 05:18 AST 12 units/L (5-40) 03/21/20 05:27 ALT 8 units/L (7-56) 03/21/20 05:27 Alkaline Phosphatase 72 units/L (35-129) 03/21/20 05:27 Lactate Dehydrogenase 218 units/L (91-180) H 03/29/20 05:07 Total Creatine Kinase 42 units/L (30-135) 03/13/20 16:24 Troponin T < 0.010 ng/mL (0.00-0.029) 03/13/20 16:24 C-Reactive Protein 3.10 mg/dL (0.00-1.30) H 03/31/20 05:43 NT-Pro-B Natriuret Pep 220.0 pg/mL (0-900) 03/25/20 15:14 Total Protein 7.3 g/dL (6.3-8.2) 03/21/20 05:27 Albumin 3.6 g/dL (3.9-5) L 03/21/20 05:27 Albumin/Globulin Ratio 1.0 % 03/21/20 05:27 Procalcitonin 1.16 ng/mL (<0.15) 03/27/20 18:45 Urine Color Yellow (Yellow) 03/28/20 17:48 Urine Turbidity Clear (Clear) 03/28/20 17:48 Urine pH 6.0 (5.0-7.0) 03/28/20 17:48 Ur Specific [place] 1.036 (1.003-1.030) H 03/28/20 17:48 Urine Protein 30 mg/dl mg/dL (Negative) 03/28/20 17:48 Urine Glucose (UA) >=500 mg/dL (Negative) 03/28/20 17:48 Urine Ketones Tr mg/dL (Negative) 03/28/20 17:48 Urine Blood Neg (Negative) 03/28/20 17:48 Urine Nitrite Neg (Negative) 03/28/20 17:48 Urine Bilirubin Neg (Negative) 03/28/20 17:48 Urine Urobilinogen < 2.0 mg/dL (<2.0) 03/28/20 17:48 Ur Leukocyte Esterase Tr (Negative) 03/28/20 17:48 Urine WBC (Auto) 5.0 /HPF (0.0-6.0) 03/28/20 17:48 Urine RBC (Auto) 2.0 /HPF (0.0-6.0) 03/28/20 17:48 U Epithel Cells (Auto) 2.0 /HPF (0-13.0) 03/28/20 17:48 Urine Mucus Few /HPF 03/28/20 17:48 Vancomycin Trough 5.7 ug/mL (5.0-20.0) 03/28/20 21:20 Coronavirus (PCR) Positive (Negative) A 03/14/20 Unknown SARS-CoV-2 IgG Ab Reactive (NonReactive) A 03/14/20 16:58 Microbiology: Microbiology 03/26/20 22:58 Peripheral/Venous Blood Culture - Preliminary NO GROWTH AFTER 4 DAYS 03/26/20 23:20 Peripheral/Venous Blood Culture - Preliminary NO GROWTH AFTER 4 DAYS [place]/IV: Voiding Method Bedside Commode IV Catheter Type [Left Forearm Peripheral IV ] IV Catheter Type [Right INT / Saline Lock Forearm] IV Catheter Type [Right Wrist] INT / Saline Lock IV Catheter Type [Right Hand] INT / Saline Lock IV Catheter Type [Left Upper INT / Saline Lock arm] IV Catheter Type [Left Peripheral IV Antecubital] Active Medications - Current Medications Current Medications: Generic Name Dose Route Start Last Admin Trade Name Freq PRN Reason Stop Dose Admin Acetaminophen 650 mg 03/13/20 17:21 03/30/20 23:35 Acetaminophen 325 Mg Tab PO 650 mg Q4H PRN Administration Pain MILD(1-3)/Fever >100.5/CARIAS Albuterol 2.5 mg 03/13/20 17:21 Albuterol 2.5 Mg/3 Ml Nebu IH Q4HRT PRN Shortness Of Breath Alprazolam 0.5 mg 03/25/20 20:27 03/30/20 23:35 Alprazolam 0.5 Mg Tab PO 0.5 mg Q8H PRN Administration Anxiety Amitriptyline HCl 10 mg 03/25/20 22:00 03/30/20 23:34 Amitriptyline 10 Mg Tab PO 10 mg QHS SANDY Administration Ascorbic Acid 1,000 mg 03/26/20 10:00 03/31/20 09:20 Ascorbic Acid 500 Mg Tab PO 1,000 mg BID SANDY Administration Benzonatate 100 mg 03/13/20 22:00 03/31/20 05:56 Benzonatate 100 Mg Cap PO 100 mg Q8HR SANDY Administration Duloxetine HCl 60 mg 03/14/20 10:00 03/31/20 09:19 Duloxetine 30 Mg Cap PO 60 mg QDAY SANDY Administration Enoxaparin Sodium 40 mg 03/23/20 22:00 03/30/20 23:36 Enoxaparin 40 Mg/0.4 Ml Inj SUB-Q 40 mg QDAY@2200 SANDY Administration Protocol Ergocalciferol 50,000 unit 03/20/20 10:00 03/27/20 16:01 Ergocalciferol (Vit D2) 50,000 Unit Cap PO 50,000 unit [place] SANDY Administration Famotidine 10 mg 03/29/20 23:00 03/31/20 09:19 Famotidine 20 Mg Tab PO 10 mg BID SANDY Administration Gabapentin 300 mg 03/13/20 20:00 03/31/20 09:19 Gabapentin 300 Mg Cap PO 300 mg TID SANDY Administration Guaifenesin 10 ml 03/13/20 17:24 03/25/20 02:10 Guaifenesin Dm 200/20 Mg Oral Liqd 10 Ml PO 10 ml Q4H PRN Administration Cough Hydroxyzine Pamoate 50 mg 03/13/20 22:00 03/31/20 09:19 Hydroxyzine Pamoate 50 Mg Cap PO 50 mg QID SANDY Administration Cefepime HCl 2 gm in 100 mls @ 200 mls/hr 03/28/20 15:00 03/31/20 09:19 Cefepime/Ns 2 Gm/100 Ml IV 03/31/20 23:59 200 mls/hr Q12HR SANDY Administration Protocol Vancomycin HCl 1 gm in 250 mls @ 250 mls/hr 03/31/20 14:00 Vancomycin/Ns 1 Gm/250 Ml IV 03/31/20 23:59 Q8HR SANDY Lamotrigine 100 mg 03/14/20 10:00 03/31/20 09:19 Lamotrigine 100 Mg Tab PO 100 mg QDAY SANDY Administration [place] Carbonate 150 mg 03/13/20 22:00 03/31/20 09:27 [place] Carbonate 150 Mg Cap PO 150 mg BID SANDY Administration Montelukast Sodium 10 mg 03/14/20 10:00 03/31/20 09:19 Montelukast 10 Mg Tab PO 10 mg DAILY SANDY Administration Ondansetron HCl 4 mg 03/13/20 17:21 03/30/20 23:50 Ondansetron 4 Mg/2 Ml Inj IV 4 mg Q8H PRN Administration Nausea And Vomiting Oxybutynin Chloride 5 mg 03/13/20 20:00 03/31/20 09:20 Oxybutynin 5 Mg Tab PO 5 mg TID SANDY Administration Oxycodone/Acetaminophen 1 tab 03/30/20 08:06 Oxycodone /Acetaminophen 5-325mg Tab PO Q6H PRN Pain, Moderate (4-6) Phenol 1 spray 03/25/20 20:05 03/26/20 00:27 Phenol 1.4% 177 Ml Bottle MM 1 spray PRN PRN Administration Sore Throat Sodium Chloride 10 ml 03/13/20 22:00 03/31/20 09:21 Sodium Chloride 0.9% 10 Ml Flush Syringe IV 10 ml BID SANDY Administration Sodium Chloride 10 ml 03/13/20 17:21 Sodium Chloride 0.9% 10 Ml Flush Syringe IV PRN PRN LINE FLUSH Trazodone HCl 100 mg 03/13/20 22:00 03/30/20 23:35 Trazodone 100 Mg Tab PO 100 mg QHS SANDY Administration Zinc Sulfate 220 mg 03/26/20 10:00 03/31/20 09:20 Zinc Sulfate 220 Mg Cap PO 220 mg BID SANDY Administration Nutrition/Malnutrition Assess - Dietary Evaluation Nutrition/Malnutrition Findings: Nutrition Notes Start: 03/14/20 15:39 Freq: Status: Active Protocol: Document 03/29/20 13:55 LUIZ (Rec: 03/29/20 14:04 [email or web address] [id number]) Nutrition Notes Initial or Follow up Reassessment Current Diagnosis COPD,Sepsis,Hypertension, Hyperlipidemia Other Pertinent Diagnosis Pneu, COVID-19 (+), GERD Current Diet Cardiac + Ensure Enlive TID Labs/Tests BG 243 Pertinent Medications Vit C, Lasix, Zinc sulfate, Solumedrol Height 5 ft 1 in Weight 63 kg [place] Body Weight (kg) 47.72 BMI 26.2 Weight Status Appropriate Subjective/Other Information Unable to reach pt via phone at 11:53 and 13:55. She has consumed 54% of meals since last assessment. Percent of energy/protein needs met: 84% energy 73% pro Burn Absent Trauma Absent Current % PO Fair (50-74%) Minimum of two criteria No #1 Nutrition Diagnosis Inadequate oral intake As Evidenced by Signs and Symptoms pt consuming at least 50% of meals Diagnosis Progress(for reassessment Improved documentation) Is patient on ventilator? No Is Patient Ambulatory and/or Out of Bed Yes REE-([facility]-ambulatory/OOB) [ 1439.594 [id number]] Calculation Used for Recommendations [facility] Additional Notes Pro needs 1-1.2g/k-76g/ day Fluid needs 1ml/kcal Nutrition Intervention Change Diet Order: Continue current diet order Add Supplement/Snack (indicate name/kcal Change to Glucerna BID (sec to /protein ) elevated BG) Provides kCal: 440 Provides Protein (gm) 20 Goal #1 PO intake of meals plus ONS to meet at least 75% energy and pro needs Follow-Up By: 04/05/20 Additional Comments F/U: intakes (meals/ONS), BG labs
[2020-03-31] MEDS: ONDANSETRON 4 MG/2 ML INJ IV PRN (11:41)
--- NOTE | 2020-03-31 12:03 | Progress Note ---
Assessment and Plan Cultures: Blood culture no growth SARS CoV2 PCR positive SARS Covid 2 IgG positive 03/26/2020 blood culture: no growth Assessment: 64 years old female with history of COPD on 3 L home O2, GERD, hypertension, hyperlipidemia, anxiety, asthma, admitted on 03/13/2020 secondary to 5-day history of generalized malaise, weakness, fever, dry cough, shortness of breath and dyspnea on exertion: #Severe COVID pneumonia/Bacterial pneumonia: Procalcitonin elevated likely a bacterial component, had completed cefepime. Completed remdesivir and decadron. SARS CoV-2 IgG is positive, patient is not a candidate for COVID convalescent plasma. Developed leukemoid reaction of higher dose steroids, got another round of IV Cefepime + Vancomycin. #Acute on chronic hypoxemic respiratory failure: Patient is on 3 L at home, currently on HFNC. #COPD with exacerbation #Diarrhea: Likely secondary to COVID-19. Recommendations: -Completed remdesivir and decadron, additional steroids also weaned off per pulmonary -Completed antibiotic course of cefepime and vancomycin, orders discontinued -DVT scan negative -continue supportive care and oxygen weaning ID will sign off. Please call with questions. Angel Li MD, FACP [facility] ([facility] O: [phone] F: [phone] Subjective Date of service: 03/31/20 Principal diagnosis: COVID/COPD Interval history: No fever. Remains on high flow nasal cannula. DVT scan negative. Objective - Exam Narrative Exam: Physical Exam (reviewed in chart to minimize risk of transmission) Constitutional: deferred Head, Ears, Nose: deferred Eyes: deferred Neck: deferred Oral: deferred Cardiovascular: deferred Respiratory: deferred GI: deferred Musculoskeletal: deferred Skin: deferred Hem/Lymphatic: deferred Psych: deferred Neurological: deferred - Constitutional Vitals: Vital Signs Temp Pulse Resp BP Pulse Ox 97.6 F 112 H 22 134/76 94 03/30/20 21:08 03/31/20 03:46 03/31/20 03:46 03/31/20 03:46 03/31/20 08:00 Temperature -Last 24 Hours Temperature 97.6 F Temperature 97.5 F - Labs CBC & Chem 7: 03/30/20 05:09 03/30/20 05:09 Labs: Abnormal lab results 03/31/20 03/31/20 03/31/20 Range/Units 05:43 05:43 05:43 D-Dimer 734.03 H (0-234) ng/mlDDU Ferritin 404.1 H (10.0-200.0) ng/mL C-Reactive Protein 3.10 H (0.00-1.30) mg/dL
[2020-03-31] MEDS ORDERED: FUROSEMIDE 20 MG/2 ML INJ IV ONE (13:54)
--- NOTE | 2020-03-31 13:56 | Progress Note ---
Assessment and Plan 64 y/o female with acute on chronic respiratory failure secondary COVID 19 pneumonia. 1. continue to taper steroids to off given increased level of anxiety. 2. Would consider lasix therapy again despite only mildly elevated BNP. Having a net negative fluid balance can still help with oxygenation. I 3. Prone as tolerated during the day and sleep prone at night. Patient has been noncompliant with this. Did not prone again last night. 4. Abx therapy per ID 5. Guarded prognosis given prolonged high levels of flow and oxygen re quirements. Subjective Date of service: 03/31/20 Principal diagnosis: COVID/COPD Interval history: No acute events. Still on 25 liters and 100%. Sats in the mid 90's. Objective Vital Signs - 12hr 03/31/20 03/31/20 03/31/20 02:00 03:46 08:00 Pulse Rate 112 H Respiratory 22 Rate Blood Pressure 134/76 O2 Sat by Pulse 91 97 94 Oximetry Constitutional: alert, other (critically ill on HFNC) Eyes: non-icteric Neck: supple Effort: mildly labored Ascultation: Bilateral: clear, wheezes Cardiovascular: other (tachy, RR; no mrg) Gastrointestinal: normoactive bowel sounds, soft, non-tender Integumentary: normal Extremities: no cyanosis, no edema, pink and warm Neurologic: normal mental status, non-focal exam, CN II-XII normal Psychiatric: anxious, other (very fidgety) CBC and BMP: 03/30/20 05:09 03/30/20 05:09 ABG, PT/INR, D-dimer: PT/INR, D-dimer PT 11.8 Sec. (12.2-14.9) L 03/13/20 16:24 INR 0.89 (0.87-1.13) 03/13/20 16:24 D-Dimer 734.03 ng/mlDDU (0-234) H 03/31/20 05:43 Abnormal lab findings: Abnormal Labs 03/13/20 03/13/20 03/13/20 16:24 16:24 16:24 WBC MCH RDW 16.8 H Plt Count Lymph % (Auto) 8.5 L [place] % (Auto) Lymph # (Auto) 0.6 L [place] # (Auto) Seg Neutrophils % 84.9 H Seg Neuts % (Manual) Lymphocytes % (Manual) Seg Neutrophils # Seg Neutrophils # Man Lymphocytes # (Manual) Monocytes # (Manual) PT 11.8 L D-Dimer 234.66 H Sodium 135 L Potassium 3.1 L Chloride Carbon Dioxide BUN Glucose 174 H Ferritin Lactate Dehydrogenase 277 H C-Reactive Protein 8.00 H Albumin 3.7 L Ur Specific [place] Coronavirus (PCR) SARS-CoV-2 IgG Ab 03/13/20 03/14/20 03/14/20 16:24 08:02 08:02 WBC 3.9 L MCH RDW 16.3 H Plt Count Lymph % (Auto) [place] % (Auto) 9.5 H Lymph # (Auto) 0.7 L [place] # (Auto) Seg Neutrophils % 72.9 H Seg Neuts % (Manual) Lymphocytes % (Manual) Seg Neutrophils # Seg Neutrophils # Man Lymphocytes # (Manual) Monocytes # (Manual) PT D-Dimer Sodium Potassium Chloride 107.4 H Carbon Dioxide BUN Glucose 174 H 142 H Ferritin Lactate Dehydrogenase 267 H C-Reactive Protein 8.10 H Albumin Ur Specific [place] Coronavirus (PCR) SARS-CoV-2 IgG Ab 03/14/20 03/14/20 03/14/20 16:58 16:58 Unknown WBC MCH RDW Plt Count Lymph % (Auto) [place] % (Auto) Lymph # (Auto) [place] # (Auto) Seg Neutrophils % Seg Neuts % (Manual) Lymphocytes % (Manual) Seg Neutrophils # Seg Neutrophils # Man Lymphocytes # (Manual) Monocytes # (Manual) PT D-Dimer Sodium Potassium Chloride Carbon Dioxide BUN Glucose Ferritin Lactate Dehydrogenase 277 H C-Reactive Protein 2.60 H Albumin Ur Specific [place] Coronavirus (PCR) Positive A SARS-CoV-2 IgG Ab Reactive A 03/16/20 03/16/20 03/16/20 05:18 05:18 10:34 WBC MCH RDW 16.4 H Plt Count Lymph % (Auto) [place] % (Auto) 10.0 H Lymph # (Auto) [place] # (Auto) Seg Neutrophils % Seg Neuts % (Manual) Lymphocytes % (Manual) Seg Neutrophils # Seg Neutrophils # Man Lymphocytes # (Manual) Monocytes # (Manual) PT D-Dimer 278.32 H Sodium Potassium 3.1 L Chloride Carbon Dioxide BUN Glucose Ferritin Lactate Dehydrogenase C-Reactive Protein Albumin 3.4 L Ur Specific [place] Coronavirus (PCR) SARS-CoV-2 IgG Ab 03/16/20 03/17/20 03/18/20 10:34 21:24 05:58 WBC 14.8 H MCH RDW 15.8 H Plt Count Lymph % (Auto) 11.5 L [place] % (Auto) Lymph # (Auto) [place] # (Auto) 1.0 H Seg Neutrophils % 81.3 H Seg Neuts % (Manual) Lymphocytes % (Manual) Seg Neutrophils # 12.0 H Seg Neutrophils # Man Lymphocytes # (Manual) Monocytes # (Manual) PT D-Dimer Sodium Potassium Chloride Carbon Dioxide BUN Glucose 182 H Ferritin Lactate Dehydrogenase 268 H 268 H C-Reactive Protein 2.10 H 4.90 H Albumin Ur Specific [place] Coronavirus (PCR) SARS-CoV-2 IgG Ab 03/18/20 03/21/20 03/21/20 05:58 05:27 05:27 WBC 14.1 H MCH 27 L RDW 16.1 H Plt Count 513 H Lymph % (Auto) 11.5 L [place] % (Auto) 7.9 H Lymph # (Auto) [place] # (Auto) 1.1 H Seg Neutrophils % 78.4 H Seg Neuts % (Manual) Lymphocytes % (Manual) Seg Neutrophils # 11.1 H Seg Neutrophils # Man Lymphocytes # (Manual) Monocytes # (Manual) PT D-Dimer Sodium Potassium 2.9 L* Chloride Carbon Dioxide 18 L BUN Glucose Ferritin Lactate Dehydrogenase C-Reactive Protein Albumin 3.6 L 3.6 L Ur Specific [place] Coronavirus (PCR) SARS-CoV-2 IgG Ab 03/22/20 03/22/20 03/22/20 15:45 15:45 15:45 WBC MCH RDW Plt Count Lymph % (Auto) [place] % (Auto) Lymph # (Auto) [place] # (Auto) Seg Neutrophils % Seg Neuts % (Manual) Lymphocytes % (Manual) Seg Neutrophils # Seg Neutrophils # Man Lymphocytes # (Manual) Monocytes # (Manual) PT D-Dimer 274.02 H Sodium Potassium Chloride Carbon Dioxide BUN Glucose Ferritin Lactate Dehydrogenase 259 H C-Reactive Protein 7.60 H Albumin Ur Specific [place] Coronavirus (PCR) SARS-CoV-2 IgG Ab 03/26/20 03/26/20 03/27/20 05:45 05:45 08:21 WBC 34.9 H MCH RDW 15.9 H Plt Count 579 H Lymph % (Auto) [place] % (Auto) Lymph # (Auto) [place] # (Auto) Seg Neutrophils % Seg Neuts % (Manual) Lymphocytes % (Manual) Seg Neutrophils # Seg Neutrophils # Man Lymphocytes # (Manual) Monocytes # (Manual) PT D-Dimer Sodium 130 L 130 L Potassium Chloride 86.0 L 88.5 L Carbon Dioxide 35 H BUN 22 H Glucose 227 H 326 H Ferritin Lactate Dehydrogenase 213 H C-Reactive Protein 34.50 H Albumin Ur Specific [place] Coronavirus (PCR) SARS-CoV-2 IgG Ab 03/27/20 03/27/20 03/27/20 08:21 18:45 18:45 WBC 42.1 H* MCH RDW 16.3 H Plt Count Lymph % (Auto) [place] % (Auto) Lymph # (Auto) [place] # (Auto) Seg Neutrophils % Seg Neuts % (Manual) 91.0 H Lymphocytes % (Manual) 2.0 L Seg Neutrophils # Seg Neutrophils # Man 38.3 H Lymphocytes # (Manual) 0.8 L Monocytes # (Manual) 1.7 H PT D-Dimer Sodium Potassium Chloride Carbon Dioxide BUN Glucose Ferritin 400.5 H Lactate Dehydrogenase C-Reactive Protein 49.70 H Albumin Ur Specific [place] Coronavirus (PCR) SARS-CoV-2 IgG Ab 03/28/20 03/28/20 03/28/20 07:51 07:51 07:51 WBC 32.2 H MCH 27 L RDW 16.3 H Plt Count Lymph % (Auto) [place] % (Auto) Lymph # (Auto) [place] # (Auto) Seg Neutrophils % Seg Neuts % (Manual) 86.0 H Lymphocytes % (Manual) 10.0 L Seg Neutrophils # Seg Neutrophils # Man 27.7 H Lymphocytes # (Manual) Monocytes # (Manual) 1.3 H PT D-Dimer 1182.25 H Sodium Potassium Chloride Carbon Dioxide BUN Glucose Ferritin 514.4 H Lactate Dehydrogenase C-Reactive Protein Albumin Ur Specific [place] Coronavirus (PCR) SARS-CoV-2 IgG Ab 03/28/20 03/28/20 03/29/20 07:51 17:48 05:07 WBC MCH RDW Plt Count Lymph % (Auto) [place] % (Auto) Lymph # (Auto) [place] # (Auto) Seg Neutrophils % Seg Neuts % (Manual) Lymphocytes % (Manual) Seg Neutrophils # Seg Neutrophils # Man Lymphocytes # (Manual) Monocytes # (Manual) PT D-Dimer Sodium 136 L Potassium Chloride 93.0 L Carbon Dioxide 35 H BUN Glucose 243 H Ferritin Lactate Dehydrogenase 218 H C-Reactive Protein 18.00 H Albumin Ur Specific [place] 1.036 H Coronavirus (PCR) SARS-CoV-2 IgG Ab 03/29/20 03/29/20 03/30/20 05:07 14:39 05:09 WBC 22.0 H 11.4 H MCH 27 L 27 L RDW 16.0 H 16.1 H Plt Count Lymph % (Auto) [place] % (Auto) Lymph # (Auto) [place] # (Auto) Seg Neutrophils % Seg Neuts % (Manual) Lymphocytes % (Manual) Seg Neutrophils # Seg Neutrophils # Man Lymphocytes # (Manual) Monocytes # (Manual) PT D-Dimer Sodium 131 L Potassium Chloride 91.7 L Carbon Dioxide 31 H BUN Glucose 328 H Ferritin Lactate Dehydrogenase C-Reactive Protein Albumin Ur Specific [place] Coronavirus (PCR) SARS-CoV-2 IgG Ab 03/30/20 03/31/20 03/31/20 05:09 05:43 05:43 WBC MCH RDW Plt Count Lymph % (Auto) [place] % (Auto) Lymph # (Auto) [place] # (Auto) Seg Neutrophils % Seg Neuts % (Manual) Lymphocytes % (Manual) Seg Neutrophils # Seg Neutrophils # Man Lymphocytes # (Manual) Monocytes # (Manual) PT D-Dimer 734.03 H Sodium 136 L Potassium Chloride 96.2 L Carbon Dioxide BUN Glucose 297 H Ferritin 404.1 H Lactate Dehydrogenase C-Reactive Protein Albumin Ur Specific [place] Coronavirus (PCR) SARS-CoV-2 IgG Ab 03/31/20 05:43 WBC MCH RDW Plt Count Lymph % (Auto) [place] % (Auto) Lymph # (Auto) [place] # (Auto) Seg Neutrophils % Seg Neuts % (Manual) Lymphocytes % (Manual) Seg Neutrophils # Seg Neutrophils # Man Lymphocytes # (Manual) Monocytes # (Manual) PT D-Dimer Sodium Potassium Chloride Carbon Dioxide BUN Glucose Ferritin Lactate Dehydrogenase C-Reactive Protein 3.10 H Albumin Ur Specific [place] Coronavirus (PCR) SARS-CoV-2 IgG Ab
[2020-03-31] MEDS ORDERED: VANCOMYCIN/NS 1 GM/250 ML 1 GM/250 ML BAG IV SCH (14:00)
[2020-03-31] MEDS: ACETAMINOPHEN 325 MG TAB PO PRN (23:13)
[2020-03-31] MEDS: ENOXAPARIN 40 MG/0.4 ML INJ SUB-Q SCH (23:14)
[2020-03-31] MEDS: traZODone 100 MG TAB PO SCH (23:14)
[2020-03-31] MEDS: AMITRIPTYLINE 10 MG TAB PO SCH (23:16)
[2020-03-31] MEDS: METOPROLOL TARTRATE 25 MG TAB PO SCH (23:16)
[2020-04-01] MEDS: METOPROLOL TARTRATE 25 MG TAB PO SCH ×2 (10:44→23:36)
[2020-04-01] MEDS: MONTELUKAST 10 MG TAB PO SCH (10:44)
[2020-04-01] MEDS: ZINC SULFATE 220 MG CAP PO SCH (10:44)
[2020-04-01] MEDS: OXYBUTYNIN 5 MG TAB PO SCH ×2 (10:45→15:03)
[2020-04-01] MEDS: lamoTRIgine 100 MG TAB PO SCH (10:45)
[2020-04-01] MEDS: FAMOTIDINE 20 MG TAB PO SCH ×2 (10:45→23:35)
[2020-04-01] MEDS: GABAPENTIN 300 MG CAP PO SCH ×2 (10:45→15:03)
[2020-04-01] MEDS: ASCORBIC ACID 500 MG TAB PO SCH (10:47)
[2020-04-01] MEDS: BENZONATATE 100 MG CAP PO SCH ×2 (10:48→15:03)
[2020-04-01] MEDS: DULoxetine 30 MG CAP PO SCH (10:53)
[2020-04-01] MEDS: LITHIUM CARBONATE 150 MG CAP PO SCH (10:53)
--- NOTE | 2020-04-01 11:03 | Progress Note ---
Assessment and Plan 64 y/o female with acute on chronic respiratory failure secondary COVID 19 pneumonia. 1. steroids are now off. 2. Gave 20 of lasix again today. 3. Prone as tolerated during the day and sleep prone at night. Patient has been noncompliant with this. Did not prone again last night. 4. Abx therapy per ID 5. Guarded prognosis given prolonged high levels of flow and oxygen requirements. Subjective Date of service: 04/01/20 Principal diagnosis: COVID/COPD Interval history: Remains on 25 liters and 96%. Good sats. I/O still show positive fluid balance Objective Vital Signs - 12hr 03/31/20 03/31/20 04/01/20 23:27 23:45 05:05 Temperature 98.5 F 98.7 F Pulse Rate 117 H 100 H Respiratory 22 24 20 Rate Blood Pressure 112/64 126/66 O2 Sat by Pulse 95 93 95 Oximetry Constitutional: alert, other (critically ill on HFNC) Eyes: non-icteric Neck: supple Effort: mildly labored Ascultation: Bilateral: clear, wheezes Cardiovascular: other (tachy, RR; no mrg) Gastrointestinal: normoactive bowel sounds, soft, non-tender Integumentary: normal Extremities: no cyanosis, no edema, pink and warm Neurologic: normal mental status, non-focal exam, CN II-XII normal Psychiatric: anxious, other (very fidgety) CBC and BMP: 03/30/20 05:09 03/30/20 05:09 ABG, PT/INR, D-dimer: PT/INR, D-dimer PT 11.8 Sec. (12.2-14.9) L 03/13/20 16:24 INR 0.89 (0.87-1.13) 03/13/20 16:24 D-Dimer 734.03 ng/mlDDU (0-234) H 03/31/20 05:43 Abnormal lab findings: Abnormal Labs 03/13/20 03/13/20 03/13/20 16:24 16:24 16:24 WBC MCH RDW 16.8 H Plt Count Lymph % (Auto) 8.5 L [place] % (Auto) Lymph # (Auto) 0.6 L [place] # (Auto) Seg Neutrophils % 84.9 H Seg Neuts % (Manual) Lymphocytes % (Manual) Seg Neutrophils # Seg Neutrophils # Man Lymphocytes # (Manual) Monocytes # (Manual) PT 11.8 L D-Dimer 234.66 H Sodium 135 L Potassium 3.1 L Chloride Carbon Dioxide BUN Glucose 174 H Ferritin Lactate Dehydrogenase 277 H C-Reactive Protein 8.00 H Albumin 3.7 L Ur Specific [place] Coronavirus (PCR) SARS-CoV-2 IgG Ab 03/13/20 03/14/20 03/14/20 16:24 08:02 08:02 WBC 3.9 L MCH RDW 16.3 H Plt Count Lymph % (Auto) [place] % (Auto) 9.5 H Lymph # (Auto) 0.7 L [place] # (Auto) Seg Neutrophils % 72.9 H Seg Neuts % (Manual) Lymphocytes % (Manual) Seg Neutrophils # Seg Neutrophils # Man Lymphocytes # (Manual) Monocytes # (Manual) PT D-Dimer Sodium Potassium Chloride 107.4 H Carbon Dioxide BUN Glucose 174 H 142 H Ferritin Lactate Dehydrogenase 267 H C-Reactive Protein 8.10 H Albumin Ur Specific [place] Coronavirus (PCR) SARS-CoV-2 IgG Ab 03/14/20 03/14/20 03/14/20 16:58 16:58 Unknown WBC MCH RDW Plt Count Lymph % (Auto) [place] % (Auto) Lymph # (Auto) [place] # (Auto) Seg Neutrophils % Seg Neuts % (Manual) Lymphocytes % (Manual) Seg Neutrophils # Seg Neutrophils # Man Lymphocytes # (Manual) Monocytes # (Manual) PT D-Dimer Sodium Potassium Chloride Carbon Dioxide BUN Glucose Ferritin Lactate Dehydrogenase 277 H C-Reactive Protein 2.60 H Albumin Ur Specific [place] Coronavirus (PCR) Positive A SARS-CoV-2 IgG Ab Reactive A 03/16/20 03/16/20 03/16/20 05:18 05:18 10:34 WBC MCH RDW 16.4 H Plt Count Lymph % (Auto) [place] % (Auto) 10.0 H Lymph # (Auto) [place] # (Auto) Seg Neutrophils % Seg Neuts % (Manual) Lymphocytes % (Manual) Seg Neutrophils # Seg Neutrophils # Man Lymphocytes # (Manual) Monocytes # (Manual) PT D-Dimer 278.32 H Sodium Potassium 3.1 L Chloride Carbon Dioxide BUN Glucose Ferritin Lactate Dehydrogenase C-Reactive Protein Albumin 3.4 L Ur Specific [place] Coronavirus (PCR) SARS-CoV-2 IgG Ab 03/16/20 03/17/20 03/18/20 10:34 21:24 05:58 WBC 14.8 H MCH RDW 15.8 H Plt Count Lymph % (Auto) 11.5 L [place] % (Auto) Lymph # (Auto) [place] # (Auto) 1.0 H Seg Neutrophils % 81.3 H Seg Neuts % (Manual) Lymphocytes % (Manual) Seg Neutrophils # 12.0 H Seg Neutrophils # Man Lymphocytes # (Manual) Monocytes # (Manual) PT D-Dimer Sodium Potassium Chloride Carbon Dioxide BUN Glucose 182 H Ferritin Lactate Dehydrogenase 268 H 268 H C-Reactive Protein 2.10 H 4.90 H Albumin Ur Specific [place] Coronavirus (PCR) SARS-CoV-2 IgG Ab 03/18/20 03/21/20 03/21/20 05:58 05:27 05:27 WBC 14.1 H MCH 27 L RDW 16.1 H Plt Count 513 H Lymph % (Auto) 11.5 L [place] % (Auto) 7.9 H Lymph # (Auto) [place] # (Auto) 1.1 H Seg Neutrophils % 78.4 H Seg Neuts % (Manual) Lymphocytes % (Manual) Seg Neutrophils # 11.1 H Seg Neutrophils # Man Lymphocytes # (Manual) Monocytes # (Manual) PT D-Dimer Sodium Potassium 2.9 L* Chloride Carbon Dioxide 18 L BUN Glucose Ferritin Lactate Dehydrogenase C-Reactive Protein Albumin 3.6 L 3.6 L Ur Specific [place] Coronavirus (PCR) SARS-CoV-2 IgG Ab 03/22/20 03/22/20 03/22/20 15:45 15:45 15:45 WBC MCH RDW Plt Count Lymph % (Auto) [place] % (Auto) Lymph # (Auto) [place] # (Auto) Seg Neutrophils % Seg Neuts % (Manual) Lymphocytes % (Manual) Seg Neutrophils # Seg Neutrophils # Man Lymphocytes # (Manual) Monocytes # (Manual) PT D-Dimer 274.02 H Sodium Potassium Chloride Carbon Dioxide BUN Glucose Ferritin Lactate Dehydrogenase 259 H C-Reactive Protein 7.60 H Albumin Ur Specific [place] Coronavirus (PCR) SARS-CoV-2 IgG Ab 03/26/20 03/26/20 03/27/20 05:45 05:45 08:21 WBC 34.9 H MCH RDW 15.9 H Plt Count 579 H Lymph % (Auto) [place] % (Auto) Lymph # (Auto) [place] # (Auto) Seg Neutrophils % Seg Neuts % (Manual) Lymphocytes % (Manual) Seg Neutrophils # Seg Neutrophils # Man Lymphocytes # (Manual) Monocytes # (Manual) PT D-Dimer Sodium 130 L 130 L Potassium Chloride 86.0 L 88.5 L Carbon Dioxide 35 H BUN 22 H Glucose 227 H 326 H Ferritin Lactate Dehydrogenase 213 H C-Reactive Protein 34.50 H Albumin Ur Specific [place] Coronavirus (PCR) SARS-CoV-2 IgG Ab 03/27/20 03/27/20 03/27/20 08:21 18:45 18:45 WBC 42.1 H* MCH RDW 16.3 H Plt Count Lymph % (Auto) [place] % (Auto) Lymph # (Auto) [place] # (Auto) Seg Neutrophils % Seg Neuts % (Manual) 91.0 H Lymphocytes % (Manual) 2.0 L Seg Neutrophils # Seg Neutrophils # Man 38.3 H Lymphocytes # (Manual) 0.8 L Monocytes # (Manual) 1.7 H PT D-Dimer Sodium Potassium Chloride Carbon Dioxide BUN Glucose Ferritin 400.5 H Lactate Dehydrogenase C-Reactive Protein 49.70 H Albumin Ur Specific [place] Coronavirus (PCR) SARS-CoV-2 IgG Ab 03/28/20 03/28/20 03/28/20 07:51 07:51 07:51 WBC 32.2 H MCH 27 L RDW 16.3 H Plt Count Lymph % (Auto) [place] % (Auto) Lymph # (Auto) [place] # (Auto) Seg Neutrophils % Seg Neuts % (Manual) 86.0 H Lymphocytes % (Manual) 10.0 L Seg Neutrophils # Seg Neutrophils # Man 27.7 H Lymphocytes # (Manual) Monocytes # (Manual) 1.3 H PT D-Dimer 1182.25 H Sodium Potassium Chloride Carbon Dioxide BUN Glucose Ferritin 514.4 H Lactate Dehydrogenase C-Reactive Protein Albumin Ur Specific [place] Coronavirus (PCR) SARS-CoV-2 IgG Ab 03/28/20 03/28/20 03/29/20 07:51 17:48 05:07 WBC MCH RDW Plt Count Lymph % (Auto) [place] % (Auto) Lymph # (Auto) [place] # (Auto) Seg Neutrophils % Seg Neuts % (Manual) Lymphocytes % (Manual) Seg Neutrophils # Seg Neutrophils # Man Lymphocytes # (Manual) Monocytes # (Manual) PT D-Dimer Sodium 136 L Potassium Chloride 93.0 L Carbon Dioxide 35 H BUN Glucose 243 H Ferritin Lactate Dehydrogenase 218 H C-Reactive Protein 18.00 H Albumin Ur Specific [place] 1.036 H Coronavirus (PCR) SARS-CoV-2 IgG Ab 03/29/20 03/29/20 03/30/20 05:07 14:39 05:09 WBC 22.0 H 11.4 H MCH 27 L 27 L RDW 16.0 H 16.1 H Plt Count Lymph % (Auto) [place] % (Auto) Lymph # (Auto) [place] # (Auto) Seg Neutrophils % Seg Neuts % (Manual) Lymphocytes % (Manual) Seg Neutrophils # Seg Neutrophils # Man Lymphocytes # (Manual) Monocytes # (Manual) PT D-Dimer Sodium 131 L Potassium Chloride 91.7 L Carbon Dioxide 31 H BUN Glucose 328 H Ferritin Lactate Dehydrogenase C-Reactive Protein Albumin Ur Specific [place] Coronavirus (PCR) SARS-CoV-2 IgG Ab 03/30/20 03/31/20 03/31/20 05:09 05:43 05:43 WBC MCH RDW Plt Count Lymph % (Auto) [place] % (Auto) Lymph # (Auto) [place] # (Auto) Seg Neutrophils % Seg Neuts % (Manual) Lymphocytes % (Manual) Seg Neutrophils # Seg Neutrophils # Man Lymphocytes # (Manual) Monocytes # (Manual) PT D-Dimer 734.03 H Sodium 136 L Potassium Chloride 96.2 L Carbon Dioxide BUN Glucose 297 H Ferritin 404.1 H Lactate Dehydrogenase C-Reactive Protein Albumin Ur Specific [place] Coronavirus (PCR) SARS-CoV-2 IgG Ab 03/31/20 05:43 WBC MCH RDW Plt Count Lymph % (Auto) [place] % (Auto) Lymph # (Auto) [place] # (Auto) Seg Neutrophils % Seg Neuts % (Manual) Lymphocytes % (Manual) Seg Neutrophils # Seg Neutrophils # Man Lymphocytes # (Manual) Monocytes # (Manual) PT D-Dimer Sodium Potassium Chloride Carbon Dioxide BUN Glucose Ferritin Lactate Dehydrogenase C-Reactive Protein 3.10 H Albumin Ur Specific [place] Coronavirus (PCR) SARS-CoV-2 IgG Ab
[2020-04-01] MEDS ORDERED: FUROSEMIDE 20 MG/2 ML INJ IV ONE (12:00)
--- NOTE | 2020-04-01 13:43 | Progress Note ---
Assessment and Plan Assessment and plan: --Sepsis; due to COVID-19 infection Current Visit: Yes Status: Acute Plan to address problem: Patient presented with tachypnea, tachycardia, febrile at 102, acute respiratory failure with hypoxia and chest x-ray bilateral patchy infiltrate left greater than right. Patient positive for COVID-19 Infectious disease following S/p empiric antibiotic therapy 03/13 blood cultures x2 no growth after 5 days -- Pneumonia due to COVID-19 virus Current Visit: Yes Status: Acute Plan to address problem: 03/14/20 COVID-19 PCR positive 03/14 Covid 19 antibody positive, not a candidate for convalescent plasma Chest x-ray showed bilateral patchy infiltrate left greater than right. S/p cefepime S/p remdesivir and Decadron Patient now on Solu-Medrol per pulmonology Trend inflammatory markers for wrist education Droplet/contact isolation OOB 3 times daily and as tolerated Supplemental oxygen as needed Anticoagulation per protocol Pulmonary hygiene Continue SPO2 monitoring Prone to sleep as tolerated Vitamin C, D, zinc -- Acute hypoxemic respiratory failure Current Visit: Yes Status: Acute Plan to address problem: Oxygen titrate O2 sats to more than 90% Follow cultures, supportive care -- Leukocytosis Current Visit: Yes Status: Acute Plan to address problem: Worsening leukocytosis, Secondary to sepsis, partly due to steroid use Continue current antibiotics, follow cultures, Taper steroid dose ID recommend CT abdomen and pelvis if leukocytosis does not improve Continue supportive care -- Hyponatremia Current Visit: Yes Status: Acute Plan to address problem: Significantly improved Continue current management Monitor electrolytes -- Elevated d-dimer Current Visit: Yes Status: Acute Plan to address problem: Elevated D-dimer 1182 Anticoagulation per protocol Unable to get VQ scan or CTA chest bilateral lower extremity Doppler negative for DVT -- Hypertension moderate control Current Visit: Yes Status: Chronic Plan to address problem: Continue current antihypertensives As needed medications --Hyperlipidemia Current Visit: Yes Status: Chronic Plan to address problem: Continue home statin, low-cholesterol diet -- GERD (gastroesophageal reflux disease) Current Visit: Yes Status: Chronic Plan to address problem: Continue home PPI --History of COPD (chronic obstructive pulmonary disease) Current Visit: Yes Status: Chronic Plan to address problem: Oxygen titrate O2 sats to more than 90% Nebulizers, steroids Pulmonary following, optimize medications --DVT prophylaxis Current Visit: Yes Status: Acute Plan to address problem: Subcu Lovenox/SCDs Full CODE STATUS Closely monitor the patient and adjust the management as needed Plan of care reviewed with the patient and her nurse History Interval history: I have seen the patient in his room from a distance Strict isolation precautions and PPE protocols observed Patient complains of generalized weakness Continues to depend on high flow oxygen In mild distress Vital signs noted Hospitalist Physical - Constitutional Vitals: Temp Pulse Resp BP Pulse Ox 98.7 F 100 H 20 126/66 95 04/01/20 05:05 04/01/20 05:05 04/01/20 05:05 04/01/20 05:05 04/01/20 05:05 General appearance: Present: mild distress, well-nourished - EENT Eyes: Present: PERRL, EOM intact - Neck Neck: Present: supple, normal ROM - Respiratory Respiratory effort: normal Respiratory: bilateral: diminished, rhonchi, negative: rales, wheezing - Cardiovascular Rhythm: regular Heart Sounds: Present: S1 & S2 - Extremities Extremities: no ischemia, No edema - Abdominal General gastrointestinal: soft, non-tender, non-distended, normal bowel sounds - Integumentary Integumentary: Present: clear, warm - Psychiatric Psychiatric: appropriate mood/affect, cooperative - Neurologic Neurologic: CNII-XII intact, moves all extremities HEART Score - HEART Score Troponin: Troponin T < 0.010 ng/mL (0.00-0.029) 03/13/20 16:24 Results - Labs CBC & Chem 7: 03/30/20 05:09 03/30/20 05:09 Labs: Laboratory Last Values WBC 11.4 K/mm3 (4.5-11.0) H 03/30/20 05:09 RBC 4.04 M/mm3 (3.65-5.03) 03/30/20 05:09 Hgb 11.0 gm/dl (10.1-14.3) 03/30/20 05:09 Hct 33.6 % (30.3-42.9) 03/30/20 05:09 MCV 83 fl (79-97) 03/30/20 05:09 MCH 27 pg (28-32) L 03/30/20 05:09 MCHC 33 % (30-34) 03/30/20 05:09 RDW 16.1 % (13.2-15.2) H 03/30/20 05:09 Plt Count 309 K/mm3 (140-440) 03/30/20 05:09 Lymph % (Auto) 11.5 % (13.4-35.0) L 03/21/20 05:27 Pike % (Auto) 7.9 % (0.0-7.3) H 03/21/20 05:27 Eos % (Auto) 2.0 % (0.0-4.3) 03/21/20 05:27 Baso % (Auto) 0.2 % (0.0-1.8) 03/21/20 05:27 Lymph # (Auto) 1.6 K/mm3 (1.2-5.4) 03/21/20 05:27 Pike # (Auto) 1.1 K/mm3 (0.0-0.8) H 03/21/20 05:27 Eos # (Auto) 0.3 K/mm3 (0.0-0.4) 03/21/20 05:27 Baso # (Auto) 0.0 K/mm3 (0.0-0.1) 03/21/20 05:27 Add Manual Diff Complete 03/28/20 07:51 Total Counted 100 03/28/20 07:51 Seg Neutrophils % 78.4 % (40.0-70.0) H 03/21/20 05:27 Seg Neuts % (Manual) 86.0 % (40.0-70.0) H 03/28/20 07:51 Band Neutrophils % 3.0 % 03/27/20 08:21 Lymphocytes % (Manual) 10.0 % (13.4-35.0) L 03/28/20 07:51 Monocytes % (Manual) 4.0 % (0.0-7.3) 03/28/20 07:51 Nucleated RBC % Not Reportable 03/28/20 07:51 Seg Neutrophils # 11.1 K/mm3 (1.8-7.7) H 03/21/20 05:27 Seg Neutrophils # Man 27.7 K/mm3 (1.8-7.7) H 03/28/20 07:51 Band Neutrophils # 0.0 K/mm3 03/28/20 07:51 Lymphocytes # (Manual) 3.2 K/mm3 (1.2-5.4) 03/28/20 07:51 Abs React Lymphs (Man) 0.0 K/mm3 03/28/20 07:51 Monocytes # (Manual) 1.3 K/mm3 (0.0-0.8) H 03/28/20 07:51 Eosinophils # (Manual) 0.0 K/mm3 (0.0-0.4) 03/28/20 07:51 Basophils # (Manual) 0.0 K/mm3 (0.0-0.1) 03/28/20 07:51 Metamyelocytes # 0.0 K/mm3 03/28/20 07:51 Myelocytes # 0.0 K/mm3 03/28/20 07:51 Promyelocytes # 0.0 K/mm3 03/28/20 07:51 Blast Cells # 0.0 K/mm3 03/28/20 07:51 WBC Morphology Not Reportable 03/28/20 07:51 Hypersegmented Neuts Not Reportable 03/28/20 07:51 Hyposegmented Neuts Not Reportable 03/28/20 07:51 Hypogranular Neuts Not Reportable 03/28/20 07:51 Smudge Cells Not Reportable 03/28/20 07:51 Toxic Granulation Not Reportable 03/28/20 07:51 Toxic Vacuolation Few 03/28/20 07:51 Dohle Bodies Not Reportable 03/28/20 07:51 Pelger-Huet Anomaly Not Reportable 03/28/20 07:51 Natan Rods Not Reportable 03/28/20 07:51 Platelet Estimate Consistent w auto 03/28/20 07:51 Clumped Platelets Not Reportable 03/28/20 07:51 Plt Clumps, EDTA Not Reportable 03/28/20 07:51 Large Platelets Few 03/28/20 07:51 Giant Platelets Not Reportable 03/28/20 07:51 Platelet Satelliting Not Reportable 03/28/20 07:51 Plt Morphology Comment Not Reportable 03/28/20 07:51 RBC Morphology Normal 03/28/20 07:51 Dimorphic RBCs Not Reportable 03/28/20 07:51 Polychromasia Not Reportable 03/28/20 07:51 Hypochromasia Not Reportable 03/28/20 07:51 Poikilocytosis Not Reportable 03/28/20 07:51 Anisocytosis Not Reportable 03/28/20 07:51 Microcytosis Not Reportable 03/28/20 07:51 Macrocytosis Not Reportable 03/28/20 07:51 Spherocytes Not Reportable 03/28/20 07:51 Pappenheimer Bodies Not Reportable 03/28/20 07:51 Sickle Cells Not Reportable 03/28/20 07:51 Target Cells Not Reportable 03/28/20 07:51 Tear Drop Cells Not Reportable 03/28/20 07:51 Ovalocytes Not Reportable 03/28/20 07:51 Helmet Cells Not Reportable 03/28/20 07:51 Mesa-Bug Tussle Bodies Not Reportable 03/28/20 07:51 Cushing Rings Not Reportable 03/28/20 07:51 Alexia Cells Not Reportable 03/28/20 07:51 Bite Cells Not Reportable 03/28/20 07:51 Crenated Cell Not Reportable 03/28/20 07:51 Elliptocytes Not Reportable 03/28/20 07:51 Acanthocytes (Spur) Not Reportable 03/28/20 07:51 Rouleaux Not Reportable 03/28/20 07:51 Hemoglobin C Crystals Not Reportable 03/28/20 07:51 Schistocytes Not Reportable 03/28/20 07:51 Malaria parasites Not Reportable 03/28/20 07:51 Gaston Bodies Not Reportable 03/28/20 07:51 Hem Pathologist Commnt No 03/28/20 07:51 PT 11.8 Sec. (12.2-14.9) L 03/13/20 16:24 INR 0.89 (0.87-1.13) 03/13/20 16:24 D-Dimer 734.03 ng/mlDDU (0-234) H 03/31/20 05:43 Sodium 136 mmol/L (137-145) L 03/30/20 05:09 Potassium 3.9 mmol/L (3.6-5.0) 03/30/20 05:09 Chloride 96.2 mmol/L (98-107) L 03/30/20 05:09 Carbon Dioxide 28 mmol/L (22-30) 03/30/20 05:09 Anion Gap 16 mmol/L 03/30/20 05:09 BUN 17 mg/dL (7-17) 03/30/20 05:09 Creatinine 0.6 mg/dL (0.6-1.2) 03/30/20 05:09 Estimated GFR > 60 ml/min 03/30/20 05:09 BUN/Creatinine Ratio 28 % 03/30/20 05:09 Glucose 297 mg/dL (65-100) H 03/30/20 05:09 Lactic Acid 1.70 mmol/L (0.7-2.0) 03/13/20 16:24 Calcium 9.2 mg/dL (8.4-10.2) 03/30/20 05:09 Magnesium 1.80 mg/dL (1.7-2.3) 03/13/20 16:24 Total Bilirubin 0.30 mg/dL (0.1-1.2) 03/21/20 05:27 Ferritin 404.1 ng/mL (10.0-200.0) H 03/31/20 05:43 Direct Bilirubin < 0.2 mg/dL (0-0.2) 03/16/20 05:18 Indirect Bilirubin 0.1 mg/dL 03/16/20 05:18 AST 12 units/L (5-40) 03/21/20 05:27 ALT 8 units/L (7-56) 03/21/20 05:27 Alkaline Phosphatase 72 units/L (35-129) 03/21/20 05:27 Lactate Dehydrogenase 218 units/L (91-180) H 03/29/20 05:07 Total Creatine Kinase 42 units/L (30-135) 03/13/20 16:24 Troponin T < 0.010 ng/mL (0.00-0.029) 03/13/20 16:24 C-Reactive Protein 3.10 mg/dL (0.00-1.30) H 03/31/20 05:43 NT-Pro-B Natriuret Pep 220.0 pg/mL (0-900) 03/25/20 15:14 Total Protein 7.3 g/dL (6.3-8.2) 03/21/20 05:27 Albumin 3.6 g/dL (3.9-5) L 03/21/20 05:27 Albumin/Globulin Ratio 1.0 % 03/21/20 05:27 Procalcitonin 1.16 ng/mL (<0.15) 03/27/20 18:45 Urine Color Yellow (Yellow) 03/28/20 17:48 Urine Turbidity Clear (Clear) 03/28/20 17:48 Urine pH 6.0 (5.0-7.0) 03/28/20 17:48 Ur Specific [place] 1.036 (1.003-1.030) H 03/28/20 17:48 Urine Protein 30 mg/dl mg/dL (Negative) 03/28/20 17:48 Urine Glucose (UA) >=500 mg/dL (Negative) 03/28/20 17:48 Urine Ketones Tr mg/dL (Negative) 03/28/20 17:48 Urine Blood Neg (Negative) 03/28/20 17:48 Urine Nitrite Neg (Negative) 03/28/20 17:48 Urine Bilirubin Neg (Negative) 03/28/20 17:48 Urine Urobilinogen < 2.0 mg/dL (<2.0) 03/28/20 17:48 Ur Leukocyte Esterase Tr (Negative) 03/28/20 17:48 Urine WBC (Auto) 5.0 /HPF (0.0-6.0) 03/28/20 17:48 Urine RBC (Auto) 2.0 /HPF (0.0-6.0) 03/28/20 17:48 U Epithel Cells (Auto) 2.0 /HPF (0-13.0) 03/28/20 17:48 Urine Mucus Few /HPF 03/28/20 17:48 Vancomycin Trough 5.7 ug/mL (5.0-20.0) 03/28/20 21:20 Coronavirus (PCR) Positive (Negative) A 03/14/20 Unknown SARS-CoV-2 IgG Ab Reactive (NonReactive) A 03/14/20 16:58 Microbiology: Microbiology 03/26/20 22:58 Peripheral/Venous Blood Culture - Final NO GROWTH AFTER 5 DAYS 03/26/20 23:20 Peripheral/Venous Blood Culture - Final NO GROWTH AFTER 5 DAYS Sorensen/IV: Voiding Method Bedside Commode IV Catheter Type [Left Forearm Peripheral IV ] IV Catheter Type [Right INT / Saline Lock Forearm] IV Catheter Type [Right Wrist] INT / Saline Lock IV Catheter Type [Right Hand] INT / Saline Lock IV Catheter Type [Left Upper INT / Saline Lock arm] IV Catheter Type [Left Peripheral IV Antecubital] Active Medications - Current Medications Current Medications: Generic Name Dose Route Start Last Admin Trade Name Freq PRN Reason Stop Dose Admin Acetaminophen 650 mg 03/13/20 17:21 03/31/20 23:13 Acetaminophen 325 Mg Tab PO 650 mg Q4H PRN Administration Pain MILD(1-3)/Fever >100.5/CARIAS Albuterol 2.5 mg 03/13/20 17:21 Albuterol 2.5 Mg/3 Ml Nebu IH Q4HRT PRN Shortness Of Breath Alprazolam 0.5 mg 03/25/20 20:27 03/30/20 23:35 Alprazolam 0.5 Mg Tab PO 0.5 mg Q8H PRN Administration Anxiety Amitriptyline HCl 10 mg 03/25/20 22:00 03/31/20 23:16 Amitriptyline 10 Mg Tab PO 10 mg QHS SANDY Administration Ascorbic Acid 1,000 mg 03/26/20 10:00 04/01/20 10:47 Ascorbic Acid 500 Mg Tab PO 1,000 mg BID SANDY Administration Benzonatate 100 mg 03/13/20 22:00 04/01/20 10:48 Benzonatate 100 Mg Cap PO Not Given Q8HR SANDY Duloxetine HCl 60 mg 03/14/20 10:00 04/01/20 10:53 Duloxetine 30 Mg Cap PO Not Given QDAY SANDY Enoxaparin Sodium 40 mg 03/23/20 22:00 03/31/20 23:14 Enoxaparin 40 Mg/0.4 Ml Inj SUB-Q 40 mg QDAY@2200 SANDY Administration Protocol Ergocalciferol 50,000 unit 03/20/20 10:00 03/27/20 16:01 Ergocalciferol (Vit D2) 50,000 Unit Cap PO 50,000 unit [place] SANDY Administration Famotidine 10 mg 03/29/20 23:00 04/01/20 10:45 Famotidine 20 Mg Tab PO 10 mg BID SANDY Administration Gabapentin 300 mg 03/13/20 20:00 04/01/20 10:45 Gabapentin 300 Mg Cap PO 300 mg TID SANDY Administration Guaifenesin 10 ml 03/13/20 17:24 03/25/20 02:10 Guaifenesin Dm 200/20 Mg Oral Liqd 10 Ml PO 10 ml Q4H PRN Administration Cough Hydroxyzine Pamoate 50 mg 03/13/20 22:00 04/01/20 10:45 Hydroxyzine Pamoate 50 Mg Cap PO 50 mg QID SANDY Administration Lamotrigine 100 mg 03/14/20 10:00 04/01/20 10:45 Lamotrigine 100 Mg Tab PO 100 mg QDAY SANDY Administration [place] Carbonate 150 mg 03/13/20 22:00 04/01/20 10:53 [place] Carbonate 150 Mg Cap PO Not Given BID SANDY Metoprolol Tartrate 12.5 mg 03/31/20 22:00 04/01/20 10:44 Metoprolol Tartrate 25 Mg Tab PO 12.5 mg BID SANDY Administration Montelukast Sodium 10 mg 03/14/20 10:00 04/01/20 10:44 Montelukast 10 Mg Tab PO 10 mg DAILY [facility] Administration Ondansetron HCl 4 mg 03/13/20 17:21 03/31/20 11:41 Ondansetron 4 Mg/2 Ml Inj IV 4 mg Q8H PRN Administration Nausea And Vomiting Oxybutynin Chloride 5 mg 03/13/20 20:00 04/01/20 10:45 Oxybutynin 5 Mg Tab PO 5 mg TID [facility] Administration Oxycodone/Acetaminophen 1 tab 03/30/20 08:06 Oxycodone /Acetaminophen 5-325mg Tab PO Q6H PRN Pain, Moderate (4-6) Phenol 1 spray 03/25/20 20:05 03/26/20 00:27 Phenol 1.4% 177 Ml Bottle MM 1 spray PRN PRN Administration Sore Throat Sodium Chloride 10 ml 03/13/20 22:00 04/01/20 10:46 Sodium Chloride 0.9% 10 Ml Flush Syringe IV 10 ml BID SANDY Administration Sodium Chloride 10 ml 03/13/20 17:21 Sodium Chloride 0.9% 10 Ml Flush Syringe IV PRN PRN LINE FLUSH Trazodone HCl 100 mg 03/13/20 22:00 03/31/20 23:14 Trazodone 100 Mg Tab PO 100 mg QHS SANDY Administration Zinc Sulfate 220 mg 03/26/20 10:00 04/01/20 10:44 Zinc Sulfate 220 Mg Cap PO 220 mg BID SANDY Administration Nutrition/Malnutrition Assess - Dietary Evaluation Nutrition/Malnutrition Findings: Nutrition Notes Start: 03/14/20 15:39 Freq: Status: Active Protocol: Document 03/29/20 13:55 LUIZ (Rec: 03/29/20 14:04 [email or web address] [id number]) Nutrition Notes Initial or Follow up Reassessment Current Diagnosis COPD,Sepsis,Hypertension, Hyperlipidemia Other Pertinent Diagnosis Pneu, COVID-19 (+), GERD Current Diet Cardiac + Ensure Enlive TID Labs/Tests BG 243 Pertinent Medications Vit C, Lasix, Zinc sulfate, Solumedrol Height 5 ft 1 in Weight 63 kg [place] Body Weight (kg) 47.72 BMI 26.2 Weight Status Appropriate Subjective/Other Information Unable to reach pt via phone at 11:53 and 13:55. She has consumed 54% of meals since last assessment. Percent of energy/protein needs met: 84% energy 73% pro Burn Absent Trauma Absent Current % PO Fair (50-74%) Minimum of two criteria No #1 Nutrition Diagnosis Inadequate oral intake As Evidenced by Signs and Symptoms pt consuming at least 50% of meals Diagnosis Progress(for reassessment Improved documentation) Is patient on ventilator? No Is Patient Ambulatory and/or Out of Bed Yes REE-([place]-St. Jeor-ambulatory/OOB) [ [id number] [id number]] Calculation Used for Recommendations [place]-St Jeor Additional Notes Pro needs 1-1.2g/k-76g/ day Fluid needs 1ml/kcal Nutrition Intervention Change Diet Order: Continue current diet order Add Supplement/Snack (indicate name/kcal Change to Glucerna BID (sec to /protein ) elevated BG) Provides kCal: 440 Provides Protein (gm) 20 Goal #1 PO intake of meals plus ONS to meet at least 75% energy and pro needs Follow-Up By: 04/05/20 Additional Comments F/U: intakes (meals/ONS), BG labs
[2020-04-01] MEDS ORDERED: FUROSEMIDE 20 MG/2 ML INJ ONE (14:58)
[2020-04-01] MEDS: ONDANSETRON 4 MG/2 ML INJ IV PRN (15:11)
[2020-04-01] MEDS: traZODone 100 MG TAB PO SCH (23:35)
[2020-04-02] MEDS: BENZONATATE 100 MG CAP PO SCH ×3 (00:09→14:05)
[2020-04-02] MEDS: ASCORBIC ACID 500 MG TAB PO SCH ×2 (00:09→10:39)
[2020-04-02] MEDS: OXYBUTYNIN 5 MG TAB PO SCH ×3 (00:10→14:04)
[2020-04-02] MEDS: AMITRIPTYLINE 10 MG TAB PO SCH (00:10)
[2020-04-02] MEDS: LITHIUM CARBONATE 150 MG CAP PO SCH ×2 (00:10→10:40)
[2020-04-02] MEDS: ZINC SULFATE 220 MG CAP PO SCH ×3 (00:11→23:00)
[2020-04-02] MEDS: GABAPENTIN 300 MG CAP PO SCH ×3 (00:11→14:04)
[2020-04-02] MEDS: ENOXAPARIN 40 MG/0.4 ML INJ SUB-Q SCH (00:12)
[2020-04-02] MEDS: ONDANSETRON 4 MG/2 ML INJ IV PRN ×2 (00:19→10:47)
[2020-04-02] MEDS: ACETAMINOPHEN 325 MG TAB PO PRN (00:19)
[2020-04-02] MEDS: DULoxetine 30 MG CAP PO SCH (10:39)
[2020-04-02] MEDS: lamoTRIgine 100 MG TAB PO SCH (10:40)
[2020-04-02] MEDS: METOPROLOL TARTRATE 25 MG TAB PO SCH (10:40)
[2020-04-02] MEDS: FAMOTIDINE 20 MG TAB PO SCH (10:40)
[2020-04-02] MEDS: MONTELUKAST 10 MG TAB PO SCH (10:40)
[2020-04-02] MEDS: oxyCODONE /ACETAMINOPHEN 5-325MG TAB PO PRN (10:47)
[2020-04-02] MEDS: ALPRAZolam 0.5 MG TAB PO PRN (10:47)
--- NOTE | 2020-04-02 11:24 | Progress Note ---
Assessment and Plan 64 y/o female with acute on chronic respiratory failure secondary COVID 19 pneumonia. 1. steroids are now off. 2. Gave 20 of lasix yesterday, will give again today. 3. Prone as tolerated during the day and sleep prone at night. Patient has been noncompliant with this. Did not prone again last night. 4. Abx therapy per ID 5. Guarded prognosis given prolonged high levels of flow and oxygen requirements. Subjective Date of service: 04/02/20 Principal diagnosis: COVID/COPD Interval history: Down to 15 liters with good sats. Still on 100%. Tolerated lasix on yesterday. i/O still not accurate. Objective Vital Signs - 12hr 04/01/20 04/02/20 04/02/20 23:36 00:19 06:05 Temperature Pulse Rate 124 H Respiratory 18 Rate Blood Pressure 139/65 O2 Sat by Pulse 99 Oximetry 04/02/20 04/02/20 07:07 08:00 Temperature 98.5 F Pulse Rate 113 H Respiratory 20 Rate Blood Pressure 116/70 O2 Sat by Pulse 96 92 Oximetry Constitutional: alert, other (critically ill on HFNC) Eyes: non-icteric Neck: supple Effort: mildly labored Ascultation: Bilateral: clear, wheezes Cardiovascular: other (tachy, RR; no mrg) Gastrointestinal: normoactive bowel sounds, soft, non-tender Integumentary: normal Extremities: no cyanosis, no edema, pink and warm Neurologic: normal mental status, non-focal exam, CN II-XII normal Psychiatric: anxious, other (very fidgety) CBC and BMP: 03/30/20 05:09 03/30/20 05:09 ABG, PT/INR, D-dimer: PT/INR, D-dimer PT 11.8 Sec. (12.2-14.9) L 03/13/20 16:24 INR 0.89 (0.87-1.13) 03/13/20 16:24 D-Dimer 652.33 ng/mlDDU (0-234) H 04/02/20 05:32 Abnormal lab findings: Abnormal Labs 03/13/20 03/13/20 03/13/20 16:24 16:24 16:24 WBC MCH RDW 16.8 H Plt Count Lymph % (Auto) 8.5 L [place] % (Auto) Lymph # (Auto) 0.6 L [place] # (Auto) Seg Neutrophils % 84.9 H Seg Neuts % (Manual) Lymphocytes % (Manual) Seg Neutrophils # Seg Neutrophils # Man Lymphocytes # (Manual) Monocytes # (Manual) PT 11.8 L D-Dimer 234.66 H Sodium 135 L Potassium 3.1 L Chloride Carbon Dioxide BUN Glucose 174 H Ferritin Lactate Dehydrogenase 277 H C-Reactive Protein 8.00 H Albumin 3.7 L Ur Specific [place] Coronavirus (PCR) SARS-CoV-2 IgG Ab 03/13/20 03/14/20 03/14/20 16:24 08:02 08:02 WBC 3.9 L MCH RDW 16.3 H Plt Count Lymph % (Auto) [place] % (Auto) 9.5 H Lymph # (Auto) 0.7 L [place] # (Auto) Seg Neutrophils % 72.9 H Seg Neuts % (Manual) Lymphocytes % (Manual) Seg Neutrophils # Seg Neutrophils # Man Lymphocytes # (Manual) Monocytes # (Manual) PT D-Dimer Sodium Potassium Chloride 107.4 H Carbon Dioxide BUN Glucose 174 H 142 H Ferritin Lactate Dehydrogenase 267 H C-Reactive Protein 8.10 H Albumin Ur Specific [place] Coronavirus (PCR) SARS-CoV-2 IgG Ab 03/14/20 03/14/20 03/14/20 16:58 16:58 Unknown WBC MCH RDW Plt Count Lymph % (Auto) [place] % (Auto) Lymph # (Auto) [place] # (Auto) Seg Neutrophils % Seg Neuts % (Manual) Lymphocytes % (Manual) Seg Neutrophils # Seg Neutrophils # Man Lymphocytes # (Manual) Monocytes # (Manual) PT D-Dimer Sodium Potassium Chloride Carbon Dioxide BUN Glucose Ferritin Lactate Dehydrogenase 277 H C-Reactive Protein 2.60 H Albumin Ur Specific [place] Coronavirus (PCR) Positive A SARS-CoV-2 IgG Ab Reactive A 03/16/20 03/16/20 03/16/20 05:18 05:18 10:34 WBC MCH RDW 16.4 H Plt Count Lymph % (Auto) [place] % (Auto) 10.0 H Lymph # (Auto) [place] # (Auto) Seg Neutrophils % Seg Neuts % (Manual) Lymphocytes % (Manual) Seg Neutrophils # Seg Neutrophils # Man Lymphocytes # (Manual) Monocytes # (Manual) PT D-Dimer 278.32 H Sodium Potassium 3.1 L Chloride Carbon Dioxide BUN Glucose Ferritin Lactate Dehydrogenase C-Reactive Protein Albumin 3.4 L Ur Specific [place] Coronavirus (PCR) SARS-CoV-2 IgG Ab 03/16/20 03/17/20 03/18/20 10:34 21:24 05:58 WBC 14.8 H MCH RDW 15.8 H Plt Count Lymph % (Auto) 11.5 L [place] % (Auto) Lymph # (Auto) [place] # (Auto) 1.0 H Seg Neutrophils % 81.3 H Seg Neuts % (Manual) Lymphocytes % (Manual) Seg Neutrophils # 12.0 H Seg Neutrophils # Man Lymphocytes # (Manual) Monocytes # (Manual) PT D-Dimer Sodium Potassium Chloride Carbon Dioxide BUN Glucose 182 H Ferritin Lactate Dehydrogenase 268 H 268 H C-Reactive Protein 2.10 H 4.90 H Albumin Ur Specific [place] Coronavirus (PCR) SARS-CoV-2 IgG Ab 03/18/20 03/21/20 03/21/20 05:58 05:27 05:27 WBC 14.1 H MCH 27 L RDW 16.1 H Plt Count 513 H Lymph % (Auto) 11.5 L [place] % (Auto) 7.9 H Lymph # (Auto) [place] # (Auto) 1.1 H Seg Neutrophils % 78.4 H Seg Neuts % (Manual) Lymphocytes % (Manual) Seg Neutrophils # 11.1 H Seg Neutrophils # Man Lymphocytes # (Manual) Monocytes # (Manual) PT D-Dimer Sodium Potassium 2.9 L* Chloride Carbon Dioxide 18 L BUN Glucose Ferritin Lactate Dehydrogenase C-Reactive Protein Albumin 3.6 L 3.6 L Ur Specific [place] Coronavirus (PCR) SARS-CoV-2 IgG Ab 03/22/20 03/22/20 03/22/20 15:45 15:45 15:45 WBC MCH RDW Plt Count Lymph % (Auto) [place] % (Auto) Lymph # (Auto) [place] # (Auto) Seg Neutrophils % Seg Neuts % (Manual) Lymphocytes % (Manual) Seg Neutrophils # Seg Neutrophils # Man Lymphocytes # (Manual) Monocytes # (Manual) PT D-Dimer 274.02 H Sodium Potassium Chloride Carbon Dioxide BUN Glucose Ferritin Lactate Dehydrogenase 259 H C-Reactive Protein 7.60 H Albumin Ur Specific [place] Coronavirus (PCR) SARS-CoV-2 IgG Ab 03/26/20 03/26/20 03/27/20 05:45 05:45 08:21 WBC 34.9 H MCH RDW 15.9 H Plt Count 579 H Lymph % (Auto) [place] % (Auto) Lymph # (Auto) [place] # (Auto) Seg Neutrophils % Seg Neuts % (Manual) Lymphocytes % (Manual) Seg Neutrophils # Seg Neutrophils # Man Lymphocytes # (Manual) Monocytes # (Manual) PT D-Dimer Sodium 130 L 130 L Potassium Chloride 86.0 L 88.5 L Carbon Dioxide 35 H BUN 22 H Glucose 227 H 326 H Ferritin Lactate Dehydrogenase 213 H C-Reactive Protein 34.50 H Albumin Ur Specific [place] Coronavirus (PCR) SARS-CoV-2 IgG Ab 03/27/20 03/27/20 03/27/20 08:21 18:45 18:45 WBC 42.1 H* MCH RDW 16.3 H Plt Count Lymph % (Auto) [place] % (Auto) Lymph # (Auto) [place] # (Auto) Seg Neutrophils % Seg Neuts % (Manual) 91.0 H Lymphocytes % (Manual) 2.0 L Seg Neutrophils # Seg Neutrophils # Man 38.3 H Lymphocytes # (Manual) 0.8 L Monocytes # (Manual) 1.7 H PT D-Dimer Sodium Potassium Chloride Carbon Dioxide BUN Glucose Ferritin 400.5 H Lactate Dehydrogenase C-Reactive Protein 49.70 H Albumin Ur Specific [place] Coronavirus (PCR) SARS-CoV-2 IgG Ab 03/28/20 03/28/20 03/28/20 07:51 07:51 07:51 WBC 32.2 H MCH 27 L RDW 16.3 H Plt Count Lymph % (Auto) [place] % (Auto) Lymph # (Auto) [place] # (Auto) Seg Neutrophils % Seg Neuts % (Manual) 86.0 H Lymphocytes % (Manual) 10.0 L Seg Neutrophils # Seg Neutrophils # Man 27.7 H Lymphocytes # (Manual) Monocytes # (Manual) 1.3 H PT D-Dimer 1182.25 H Sodium Potassium Chloride Carbon Dioxide BUN Glucose Ferritin 514.4 H Lactate Dehydrogenase C-Reactive Protein Albumin Ur Specific [place] Coronavirus (PCR) SARS-CoV-2 IgG Ab 03/28/20 03/28/20 03/29/20 07:51 17:48 05:07 WBC MCH RDW Plt Count Lymph % (Auto) [place] % (Auto) Lymph # (Auto) [place] # (Auto) Seg Neutrophils % Seg Neuts % (Manual) Lymphocytes % (Manual) Seg Neutrophils # Seg Neutrophils # Man Lymphocytes # (Manual) Monocytes # (Manual) PT D-Dimer Sodium 136 L Potassium Chloride 93.0 L Carbon Dioxide 35 H BUN Glucose 243 H Ferritin Lactate Dehydrogenase 218 H C-Reactive Protein 18.00 H Albumin Ur Specific [place] 1.036 H Coronavirus (PCR) SARS-CoV-2 IgG Ab 03/29/20 03/29/20 03/30/20 05:07 14:39 05:09 WBC 22.0 H 11.4 H MCH 27 L 27 L RDW 16.0 H 16.1 H Plt Count Lymph % (Auto) [place] % (Auto) Lymph # (Auto) [place] # (Auto) Seg Neutrophils % Seg Neuts % (Manual) Lymphocytes % (Manual) Seg Neutrophils # Seg Neutrophils # Man Lymphocytes # (Manual) Monocytes # (Manual) PT D-Dimer Sodium 131 L Potassium Chloride 91.7 L Carbon Dioxide 31 H BUN Glucose 328 H Ferritin Lactate Dehydrogenase C-Reactive Protein Albumin Ur Specific [place] Coronavirus (PCR) SARS-CoV-2 IgG Ab 03/30/20 03/31/20 03/31/20 05:09 05:43 05:43 WBC MCH RDW Plt Count Lymph % (Auto) [place] % (Auto) Lymph # (Auto) [place] # (Auto) Seg Neutrophils % Seg Neuts % (Manual) Lymphocytes % (Manual) Seg Neutrophils # Seg Neutrophils # Man Lymphocytes # (Manual) Monocytes # (Manual) PT D-Dimer 734.03 H Sodium 136 L Potassium Chloride 96.2 L Carbon Dioxide BUN Glucose 297 H Ferritin 404.1 H Lactate Dehydrogenase C-Reactive Protein Albumin Ur Specific [place] Coronavirus (PCR) SARS-CoV-2 IgG Ab 03/31/20 04/02/20 04/02/20 05:43 05:32 05:32 WBC MCH RDW Plt Count Lymph % (Auto) [place] % (Auto) Lymph # (Auto) [place] # (Auto) Seg Neutrophils % Seg Neuts % (Manual) Lymphocytes % (Manual) Seg Neutrophils # Seg Neutrophils # Man Lymphocytes # (Manual) Monocytes # (Manual) PT D-Dimer 652.33 H Sodium Potassium Chloride Carbon Dioxide BUN Glucose Ferritin Lactate Dehydrogenase C-Reactive Protein 3.10 H 2.50 H Albumin Ur Specific [place] Coronavirus (PCR) SARS-CoV-2 IgG Ab
[2020-04-02] MEDS ORDERED: FUROSEMIDE 20 MG/2 ML INJ IV SCH (11:30)
--- NOTE | 2020-04-02 12:10 | Progress Note ---
Assessment and Plan Assessment and plan: --Sepsis; due to COVID-19 infection Current Visit: Yes Status: Acute Plan to address problem: Patient presented with tachypnea, tachycardia, febrile at 102, acute respiratory failure with hypoxia and chest x-ray bilateral patchy infiltrate left greater than right. Patient positive for COVID-19 Infectious disease following S/p empiric antibiotic therapy 03/13 blood cultures x2 no growth after 5 days -- Pneumonia due to COVID-19 virus Current Visit: Yes Status: Acute Plan to address problem: 03/14/20 COVID-19 PCR positive 03/14 Covid 19 antibody positive, not a candidate for convalescent plasma Chest x-ray showed bilateral patchy infiltrate left greater than right. S/p cefepime S/p remdesivir and Decadron Patient now on Solu-Medrol per pulmonology Trend inflammatory markers for wrist education Droplet/contact isolation OOB 3 times daily and as tolerated Supplemental oxygen as needed Anticoagulation per protocol Pulmonary hygiene Continue SPO2 monitoring Prone to sleep as tolerated Vitamin C, D, zinc -- Acute hypoxemic respiratory failure Current Visit: Yes Status: Acute Plan to address problem: Oxygen titrate O2 sats to more than 90% Follow cultures, supportive care -- Leukocytosis Current Visit: Yes Status: Acute Plan to address problem: Worsening leukocytosis, Secondary to sepsis, partly due to steroid use Continue current antibiotics, follow cultures, Taper steroid dose ID recommend CT abdomen and pelvis if leukocytosis does not improve Continue supportive care -- Hyponatremia Current Visit: Yes Status: Acute Plan to address problem: Significantly improved Continue current management Monitor electrolytes -- Elevated d-dimer Current Visit: Yes Status: Acute Plan to address problem: Elevated D-dimer 1182 Anticoagulation per protocol Unable to get VQ scan or CTA chest bilateral lower extremity Doppler negative for DVT -- Hypertension moderate control Current Visit: Yes Status: Chronic Plan to address problem: Continue current antihypertensives As needed medications --Hyperlipidemia Current Visit: Yes Status: Chronic Plan to address problem: Continue home statin, low-cholesterol diet -- GERD (gastroesophageal reflux disease) Current Visit: Yes Status: Chronic Plan to address problem: Continue home PPI --History of COPD (chronic obstructive pulmonary disease) Current Visit: Yes Status: Chronic Plan to address problem: Oxygen titrate O2 sats to more than 90% Nebulizers, steroids Pulmonary following, optimize medications --DVT prophylaxis Current Visit: Yes Status: Acute Plan to address problem: Subcu Lovenox/SCDs Full CODE STATUS Closely monitor the patient and adjust the management as needed Plan of care reviewed with the patient and her nurse History Interval history: I have seen and examined the patient in his room from a distance Strict isolation precautions and PPE protocols observed Patient complains of generalized weakness Continues to depend on high flow oxygen In mild distress Vital signs noted Hospitalist Physical - Constitutional Vitals: Temp Pulse Resp BP Pulse Ox 98.5 F 113 H 20 116/70 92 04/02/20 07:07 04/02/20 07:07 04/02/20 07:07 04/02/20 07:07 04/02/20 08:00 General appearance: Present: mild distress, well-nourished - EENT Eyes: Present: PERRL, EOM intact. Absent: scleral icterus, conjunctival injection - Neck Neck: Present: supple, normal ROM - Respiratory Respiratory effort: normal Respiratory: bilateral: diminished, negative: rales, rhonchi, wheezing - Cardiovascular Rhythm: regular Heart Sounds: Present: S1 & S2 - Extremities Extremities: no ischemia, No edema - Abdominal General gastrointestinal: soft, non-tender, non-distended, normal bowel sounds - Integumentary Integumentary: Present: clear, warm - Psychiatric Psychiatric: appropriate mood/affect, cooperative - Neurologic Neurologic: moves all extremities HEART Score - HEART Score Troponin: Troponin T < 0.010 ng/mL (0.00-0.029) 03/13/20 16:24 Results - Labs CBC & Chem 7: 03/30/20 05:09 03/30/20 05:09 Labs: Laboratory Last Values WBC 11.4 K/mm3 (4.5-11.0) H 03/30/20 05:09 RBC 4.04 M/mm3 (3.65-5.03) 03/30/20 05:09 Hgb 11.0 gm/dl (10.1-14.3) 03/30/20 05:09 Hct 33.6 % (30.3-42.9) 03/30/20 05:09 MCV 83 fl (79-97) 03/30/20 05:09 MCH 27 pg (28-32) L 03/30/20 05:09 MCHC 33 % (30-34) 03/30/20 05:09 RDW 16.1 % (13.2-15.2) H 03/30/20 05:09 Plt Count 309 K/mm3 (140-440) 03/30/20 05:09 Lymph % (Auto) 11.5 % (13.4-35.0) L 03/21/20 05:27 [place] % (Auto) 7.9 % (0.0-7.3) H 03/21/20 05:27 Eos % (Auto) 2.0 % (0.0-4.3) 03/21/20 05:27 Baso % (Auto) 0.2 % (0.0-1.8) 03/21/20 05:27 Lymph # (Auto) 1.6 K/mm3 (1.2-5.4) 03/21/20 05:27 [place] # (Auto) 1.1 K/mm3 (0.0-0.8) H 03/21/20 05:27 Eos # (Auto) 0.3 K/mm3 (0.0-0.4) 03/21/20 05:27 Baso # (Auto) 0.0 K/mm3 (0.0-0.1) 03/21/20 05:27 Add Manual Diff Complete 03/28/20 07:51 Total Counted 100 03/28/20 07:51 Seg Neutrophils % 78.4 % (40.0-70.0) H 03/21/20 05:27 Seg Neuts % (Manual) 86.0 % (40.0-70.0) H 03/28/20 07:51 Band Neutrophils % 3.0 % 03/27/20 08:21 Lymphocytes % (Manual) 10.0 % (13.4-35.0) L 03/28/20 07:51 Monocytes % (Manual) 4.0 % (0.0-7.3) 03/28/20 07:51 Nucleated RBC % Not Reportable 03/28/20 07:51 Seg Neutrophils # 11.1 K/mm3 (1.8-7.7) H 03/21/20 05:27 Seg Neutrophils # Man 27.7 K/mm3 (1.8-7.7) H 03/28/20 07:51 Band Neutrophils # 0.0 K/mm3 03/28/20 07:51 Lymphocytes # (Manual) 3.2 K/mm3 (1.2-5.4) 03/28/20 07:51 Abs React Lymphs (Man) 0.0 K/mm3 03/28/20 07:51 Monocytes # (Manual) 1.3 K/mm3 (0.0-0.8) H 03/28/20 07:51 Eosinophils # (Manual) 0.0 K/mm3 (0.0-0.4) 03/28/20 07:51 Basophils # (Manual) 0.0 K/mm3 (0.0-0.1) 03/28/20 07:51 Metamyelocytes # 0.0 K/mm3 03/28/20 07:51 Myelocytes # 0.0 K/mm3 03/28/20 07:51 Promyelocytes # 0.0 K/mm3 03/28/20 07:51 Blast Cells # 0.0 K/mm3 03/28/20 07:51 WBC Morphology Not Reportable 03/28/20 07:51 Hypersegmented Neuts Not Reportable 03/28/20 07:51 Hyposegmented Neuts Not Reportable 03/28/20 07:51 Hypogranular Neuts Not Reportable 03/28/20 07:51 Smudge Cells Not Reportable 03/28/20 07:51 Toxic Granulation Not Reportable 03/28/20 07:51 Toxic Vacuolation Few 03/28/20 07:51 Dohle Bodies Not Reportable 03/28/20 07:51 Pelger-Huet Anomaly Not Reportable 03/28/20 07:51 Natan Rods Not Reportable 03/28/20 07:51 Platelet Estimate Consistent w auto 03/28/20 07:51 Clumped Platelets Not Reportable 03/28/20 07:51 Plt Clumps, EDTA Not Reportable 03/28/20 07:51 Large Platelets Few 03/28/20 07:51 Giant Platelets Not Reportable 03/28/20 07:51 Platelet Satelliting Not Reportable 03/28/20 07:51 Plt Morphology Comment Not Reportable 03/28/20 07:51 RBC Morphology Normal 03/28/20 07:51 Dimorphic RBCs Not Reportable 03/28/20 07:51 Polychromasia Not Reportable 03/28/20 07:51 Hypochromasia Not Reportable 03/28/20 07:51 Poikilocytosis Not Reportable 03/28/20 07:51 Anisocytosis Not Reportable 03/28/20 07:51 Microcytosis Not Reportable 03/28/20 07:51 Macrocytosis Not Reportable 03/28/20 07:51 Spherocytes Not Reportable 03/28/20 07:51 Pappenheimer Bodies Not Reportable 03/28/20 07:51 Sickle Cells Not Reportable 03/28/20 07:51 Target Cells Not Reportable 03/28/20 07:51 Tear Drop Cells Not Reportable 03/28/20 07:51 Ovalocytes Not Reportable 03/28/20 07:51 Helmet Cells Not Reportable 03/28/20 07:51 [place] Bodies Not Reportable 03/28/20 07:51 [place] Rings Not Reportable 03/28/20 07:51 [place] Cells Not Reportable 03/28/20 07:51 Bite Cells Not Reportable 03/28/20 07:51 Crenated Cell Not Reportable 03/28/20 07:51 Elliptocytes Not Reportable 03/28/20 07:51 Acanthocytes (Spur) Not Reportable 03/28/20 07:51 Rouleaux Not Reportable 03/28/20 07:51 Hemoglobin C Crystals Not Reportable 03/28/20 07:51 Schistocytes Not Reportable 03/28/20 07:51 Malaria parasites Not Reportable 03/28/20 07:51 [place] Bodies Not Reportable 03/28/20 07:51 Hem Pathologist Commnt No 03/28/20 07:51 PT 11.8 Sec. (12.2-14.9) L 03/13/20 16:24 INR 0.89 (0.87-1.13) 03/13/20 16:24 D-Dimer 652.33 ng/mlDDU (0-234) H 04/02/20 05:32 Sodium 136 mmol/L (137-145) L 03/30/20 05:09 Potassium 3.9 mmol/L (3.6-5.0) 03/30/20 05:09 Chloride 96.2 mmol/L (98-107) L 03/30/20 05:09 Carbon Dioxide 28 mmol/L (22-30) 03/30/20 05:09 Anion Gap 16 mmol/L 03/30/20 05:09 BUN 17 mg/dL (7-17) 03/30/20 05:09 Creatinine 0.6 mg/dL (0.6-1.2) 03/30/20 05:09 Estimated GFR > 60 ml/min 03/30/20 05:09 BUN/Creatinine Ratio 28 % 03/30/20 05:09 Glucose 297 mg/dL (65-100) H 03/30/20 05:09 Lactic Acid 1.70 mmol/L (0.7-2.0) 03/13/20 16:24 Calcium 9.2 mg/dL (8.4-10.2) 03/30/20 05:09 Magnesium 1.80 mg/dL (1.7-2.3) 03/13/20 16:24 Total Bilirubin 0.30 mg/dL (0.1-1.2) 03/21/20 05:27 Ferritin 183.1 ng/mL (10.0-200.0) 04/02/20 05:32 Direct Bilirubin < 0.2 mg/dL (0-0.2) 03/16/20 05:18 Indirect Bilirubin 0.1 mg/dL 03/16/20 05:18 AST 12 units/L (5-40) 03/21/20 05:27 ALT 8 units/L (7-56) 03/21/20 05:27 Alkaline Phosphatase 72 units/L (35-129) 03/21/20 05:27 Lactate Dehydrogenase 218 units/L (91-180) H 03/29/20 05:07 Total Creatine Kinase 42 units/L (30-135) 03/13/20 16:24 Troponin T < 0.010 ng/mL (0.00-0.029) 03/13/20 16:24 C-Reactive Protein 2.50 mg/dL (0.00-1.30) H 04/02/20 05:32 NT-Pro-B Natriuret Pep 220.0 pg/mL (0-900) 03/25/20 15:14 Total Protein 7.3 g/dL (6.3-8.2) 03/21/20 05:27 Albumin 3.6 g/dL (3.9-5) L 03/21/20 05:27 Albumin/Globulin Ratio 1.0 % 03/21/20 05:27 Procalcitonin 1.16 ng/mL (<0.15) 03/27/20 18:45 Urine Color Yellow (Yellow) 03/28/20 17:48 Urine Turbidity Clear (Clear) 03/28/20 17:48 Urine pH 6.0 (5.0-7.0) 03/28/20 17:48 Ur Specific [place] 1.036 (1.003-1.030) H 03/28/20 17:48 Urine Protein 30 mg/dl mg/dL (Negative) 03/28/20 17:48 Urine Glucose (UA) >=500 mg/dL (Negative) 03/28/20 17:48 Urine Ketones Tr mg/dL (Negative) 03/28/20 17:48 Urine Blood Neg (Negative) 03/28/20 17:48 Urine Nitrite Neg (Negative) 03/28/20 17:48 Urine Bilirubin Neg (Negative) 03/28/20 17:48 Urine Urobilinogen < 2.0 mg/dL (<2.0) 03/28/20 17:48 Ur Leukocyte Esterase Tr (Negative) 03/28/20 17:48 Urine WBC (Auto) 5.0 /HPF (0.0-6.0) 03/28/20 17:48 Urine RBC (Auto) 2.0 /HPF (0.0-6.0) 03/28/20 17:48 U Epithel Cells (Auto) 2.0 /HPF (0-13.0) 03/28/20 17:48 Urine Mucus Few /HPF 03/28/20 17:48 Vancomycin Trough 5.7 ug/mL (5.0-20.0) 03/28/20 21:20 Coronavirus (PCR) Positive (Negative) A 03/14/20 Unknown SARS-CoV-2 IgG Ab Reactive (NonReactive) A 03/14/20 16:58 [place]/IV: Voiding Method Toilet IV Catheter Type [Left Forearm Peripheral IV ] IV Catheter Type [Right INT / Saline Lock Forearm] IV Catheter Type [Right Wrist] INT / Saline Lock IV Catheter Type [Right Hand] INT / Saline Lock IV Catheter Type [Left Upper INT / Saline Lock arm] IV Catheter Type [Left Peripheral IV Antecubital] Active Medications - Current Medications Current Medications: Generic Name Dose Route Start Last Admin Trade Name Freq PRN Reason Stop Dose Admin Acetaminophen 650 mg 03/13/20 17:04/02/20 00:19 Acetaminophen 325 Mg Tab PO 650 mg Q4H PRN Administration Pain MILD(1-3)/Fever >100.5/CARIAS Albuterol 2.5 mg 03/13/20 17:21 Albuterol 2.5 Mg/3 Ml Nebu IH Q4HRT PRN Shortness Of Breath Alprazolam 0.5 mg 03/25/20 20:27 04/02/20 10:47 Alprazolam 0.5 Mg Tab PO 0.5 mg Q8H PRN Administration Anxiety Amitriptyline HCl 10 mg 03/25/20 22:00 04/02/20 00:10 Amitriptyline 10 Mg Tab PO 10 mg QHS SANDY Administration Ascorbic Acid 1,000 mg 03/26/20 10:00 04/02/20 10:39 Ascorbic Acid 500 Mg Tab PO 1,000 mg BID SANDY Administration Benzonatate 100 mg 03/13/20 22:00 04/02/20 05:37 Benzonatate 100 Mg Cap PO 100 mg Q8HR SANDY Administration Duloxetine HCl 60 mg 03/14/20 10:00 04/02/20 10:39 Duloxetine 30 Mg Cap PO 60 mg QDAY SANDY Administration Enoxaparin Sodium 40 mg 03/23/20 22:00 04/02/20 00:12 Enoxaparin 40 Mg/0.4 Ml Inj SUB-Q 40 mg QDAY@2200 SANDY Administration Protocol Ergocalciferol 50,000 unit 03/20/20 10:00 03/27/20 16:01 Ergocalciferol (Vit D2) 50,000 Unit Cap PO 50,000 unit [place] SANDY Administration Famotidine 10 mg 03/29/20 23:00 04/02/20 10:40 Famotidine 20 Mg Tab PO 10 mg BID SANDY Administration Furosemide 20 mg 04/02/20 11:30 Furosemide 20 Mg/2 Ml Inj IV 04/02/20 16:00 ONCE SANDY Gabapentin 300 mg 03/13/20 20:00 04/02/20 10:40 Gabapentin 300 Mg Cap PO 300 mg TID SANDY Administration Guaifenesin 10 ml 03/13/20 17:24 03/25/20 02:10 Guaifenesin Dm 200/20 Mg Oral Liqd 10 Ml PO 10 ml Q4H PRN Administration Cough Hydroxyzine Pamoate 50 mg 03/13/20 22:00 04/02/20 10:40 Hydroxyzine Pamoate 50 Mg Cap PO 50 mg QID SANDY Administration Lamotrigine 100 mg 03/14/20 10:00 04/02/20 10:40 Lamotrigine 100 Mg Tab PO 100 mg QDAY SANDY Administration [place] Carbonate 150 mg 03/13/20 22:00 04/02/20 10:40 [place] Carbonate 150 Mg Cap PO 150 mg BID SANDY Administration Metoprolol Tartrate 12.5 mg 03/31/20 22:00 04/02/20 10:40 Metoprolol Tartrate 25 Mg Tab PO 12.5 mg BID SANDY Administration Montelukast Sodium 10 mg 03/14/20 10:00 04/02/20 10:40 Montelukast 10 Mg Tab PO 10 mg DAILY SANDY Administration Ondansetron HCl 4 mg 03/13/20 17:21 04/02/20 10:47 Ondansetron 4 Mg/2 Ml Inj IV 4 mg Q8H PRN Administration Nausea And Vomiting Oxybutynin Chloride 5 mg 03/13/20 20:00 04/02/20 10:40 Oxybutynin 5 Mg Tab PO 5 mg TID SANDY Administration Oxycodone/Acetaminophen 1 tab 03/30/20 08:06 04/02/20 10:47 Oxycodone /Acetaminophen 5-325mg Tab PO 1 tab Q6H PRN Administration Pain, Moderate (4-6) Phenol 1 spray 03/25/20 20:05 03/26/20 00:27 Phenol 1.4% 177 Ml Bottle MM 1 spray PRN PRN Administration Sore Throat Sodium Chloride 10 ml 03/13/20 22:00 04/02/20 10:40 Sodium Chloride 0.9% 10 Ml Flush Syringe IV 10 ml BID SANDY Administration Sodium Chloride 10 ml 03/13/20 17:21 Sodium Chloride 0.9% 10 Ml Flush Syringe IV PRN PRN LINE FLUSH Trazodone HCl 100 mg 03/13/20 22:00 04/01/20 23:35 Trazodone 100 Mg Tab PO 100 mg QHS SANDY Administration Zinc Sulfate 220 mg 03/26/20 10:00 04/02/20 10:40 Zinc Sulfate 220 Mg Cap PO 220 mg BID SANDY Administration Nutrition/Malnutrition Assess - Dietary Evaluation Nutrition/Malnutrition Findings: Nutrition Notes Start: 03/14/20 15:39 Freq: Status: Active Protocol: Document 03/29/20 13:55 LUIZ (Rec: 03/29/20 14:04 [email or web address] [email or web address]) Nutrition Notes Initial or Follow up Reassessment Current Diagnosis COPD,Sepsis,Hypertension, Hyperlipidemia Other Pertinent Diagnosis Pneu, COVID-19 (+), GERD Current Diet Cardiac + Ensure Enlive TID Labs/Tests BG 243 Pertinent Medications Vit C, Lasix, Zinc sulfate, Solumedrol Height 5 ft 1 in Weight 63 kg [place] Body Weight (kg) 47.72 BMI 26.2 Weight Status Appropriate Subjective/Other Information Unable to reach pt via phone at 11:53 and 13:55. She has consumed 54% of meals since last assessment. Percent of energy/protein needs met: 84% energy 73% pro Burn Absent Trauma Absent Current % PO Fair (50-74%) Minimum of two criteria No #1 Nutrition Diagnosis Inadequate oral intake As Evidenced by Signs and Symptoms pt consuming at least 50% of meals Diagnosis Progress(for reassessment Improved documentation) Is patient on ventilator? No Is Patient Ambulatory and/or Out of Bed Yes REE-(Reagan-St. Jeor-ambulatory/OOB) [ [id number] [id number]] Calculation Used for Recommendations Reagan-St Jeor Additional Notes Pro needs 1-1.2g/k-76g/ day Fluid needs 1ml/kcal Nutrition Intervention Change Diet Order: Continue current diet order Add Supplement/Snack (indicate name/kcal Change to Glucerna BID (sec to /protein ) elevated BG) Provides kCal: 440 Provides Protein (gm) 20 Goal #1 PO intake of meals plus ONS to meet at least 75% energy and pro needs Follow-Up By: 04/05/20 Additional Comments F/U: intakes (meals/ONS), BG labs
[2020-04-03] MEDS: OXYBUTYNIN 5 MG TAB PO SCH ×4 (00:14→20:56)
[2020-04-03] MEDS: LITHIUM CARBONATE 150 MG CAP PO SCH ×3 (00:14→22:12)
[2020-04-03] MEDS: ASCORBIC ACID 500 MG TAB PO SCH ×3 (00:14→22:21)
[2020-04-03] MEDS: ONDANSETRON 4 MG/2 ML INJ IV PRN ×2 (00:14→12:20)
[2020-04-03] MEDS: METOPROLOL TARTRATE 25 MG TAB PO SCH ×3 (00:14→22:11)
[2020-04-03] MEDS: BENZONATATE 100 MG CAP PO SCH ×4 (00:14→22:10)
[2020-04-03] MEDS: ENOXAPARIN 40 MG/0.4 ML INJ SUB-Q SCH ×2 (00:15→22:13)
[2020-04-03] MEDS: AMITRIPTYLINE 10 MG TAB PO SCH ×2 (00:15→22:12)
[2020-04-03] MEDS: ACETAMINOPHEN 325 MG TAB PO PRN (00:15)
[2020-04-03] MEDS: GABAPENTIN 300 MG CAP PO SCH ×4 (00:15→20:56)
[2020-04-03] MEDS: FAMOTIDINE 20 MG TAB PO SCH ×3 (00:15→22:10)
[2020-04-03] MEDS: traZODone 100 MG TAB PO SCH ×2 (00:18→22:11)
--- NOTE | 2020-04-03 10:52 | Progress Note ---
Assessment and Plan Assessment and plan: --Sepsis; due to COVID-19 infection Current Visit: Yes Status: Acute Plan to address problem: Patient presented with tachypnea, tachycardia, febrile at 102, acute respiratory failure with hypoxia and chest x-ray bilateral patchy infiltrate left greater than right. Patient positive for COVID-19 Infectious disease following S/p empiric antibiotic therapy 03/13 blood cultures x2 no growth after 5 days -- Pneumonia due to COVID-19 virus Current Visit: Yes Status: Acute Plan to address problem: 03/14/20 COVID-19 PCR positive 03/14 Covid 19 antibody positive, not a candidate for convalescent plasma Chest x-ray showed bilateral patchy infiltrate left greater than right. S/p cefepime S/p remdesivir and Decadron Patient now on Solu-Medrol per pulmonology Trend inflammatory markers for wrist education Droplet/contact isolation OOB 3 times daily and as tolerated Supplemental oxygen as needed Anticoagulation per protocol Pulmonary hygiene Continue SPO2 monitoring Prone to sleep as tolerated Vitamin C, D, zinc -- Acute hypoxemic respiratory failure Current Visit: Yes Status: Acute Plan to address problem: Oxygen titrate O2 sats to more than 90% Follow cultures, supportive care -- Leukocytosis Current Visit: Yes Status: Acute Plan to address problem: Worsening leukocytosis, Secondary to sepsis, partly due to steroid use Continue current antibiotics, follow cultures, Taper steroid dose ID recommend CT abdomen and pelvis if leukocytosis does not improve Continue supportive care -- Hyponatremia Current Visit: Yes Status: Acute Plan to address problem: Significantly improved Continue current management Monitor electrolytes -- Elevated d-dimer Current Visit: Yes Status: Acute Plan to address problem: Elevated D-dimer 1182 Anticoagulation per protocol Unable to get VQ scan or CTA chest bilateral lower extremity Doppler negative for DVT -- Hypertension moderate control Current Visit: Yes Status: Chronic Plan to address problem: Continue current antihypertensives As needed medications --Hyperlipidemia Current Visit: Yes Status: Chronic Plan to address problem: Continue home statin, low-cholesterol diet -- GERD (gastroesophageal reflux disease) Current Visit: Yes Status: Chronic Plan to address problem: Continue home PPI --History of COPD (chronic obstructive pulmonary disease) Current Visit: Yes Status: Chronic Plan to address problem: Oxygen titrate O2 sats to more than 90% Nebulizers, steroids Pulmonary following, optimize medications --DVT prophylaxis Current Visit: Yes Status: Acute Plan to address problem: Subcu Lovenox/SCDs Full CODE STATUS Closely monitor the patient and adjust the management as needed Plan of care reviewed with the patient and her nurse History Interval history: I have seen and examined the patient at the bedside Isolation precautions PPE protocols followed Patient is on high flow oxygen Vital signs noted Hospitalist Physical - Constitutional Vitals: Temp Pulse Resp BP Pulse Ox 98.1 F 99 H 16 109/57 97 04/03/20 03:54 04/03/20 03:54 04/03/20 03:54 04/03/20 03:54 04/03/20 03:54 General appearance: Present: mild distress, well-nourished - EENT Eyes: Present: PERRL, EOM intact - Neck Neck: Present: supple, normal ROM - Respiratory Respiratory effort: normal Respiratory: bilateral: diminished, rhonchi, negative: rales, wheezing - Cardiovascular Rhythm: regular Heart Sounds: Present: S1 & S2 - Extremities Extremities: no ischemia, No edema - Abdominal General gastrointestinal: soft, non-tender, non-distended, normal bowel sounds - Integumentary Integumentary: Present: clear, warm - Psychiatric Psychiatric: appropriate mood/affect, cooperative - Neurologic Neurologic: moves all extremities HEART Score - HEART Score Troponin: Troponin T < 0.010 ng/mL (0.00-0.029) 03/13/20 16:24 Results - Labs CBC & Chem 7: 03/30/20 05:09 03/30/20 05:09 Labs: Laboratory Last Values WBC 11.4 K/mm3 (4.5-11.0) H 03/30/20 05:09 RBC 4.04 M/mm3 (3.65-5.03) 03/30/20 05:09 Hgb 11.0 gm/dl (10.1-14.3) 03/30/20 05:09 Hct 33.6 % (30.3-42.9) 03/30/20 05:09 MCV 83 fl (79-97) 03/30/20 05:09 MCH 27 pg (28-32) L 03/30/20 05:09 MCHC 33 % (30-34) 03/30/20 05:09 RDW 16.1 % (13.2-15.2) H 03/30/20 05:09 Plt Count 309 K/mm3 (140-440) 03/30/20 05:09 Lymph % (Auto) 11.5 % (13.4-35.0) L 03/21/20 05:27 [place] % (Auto) 7.9 % (0.0-7.3) H 03/21/20 05:27 Eos % (Auto) 2.0 % (0.0-4.3) 03/21/20 05:27 Baso % (Auto) 0.2 % (0.0-1.8) 03/21/20 05:27 Lymph # (Auto) 1.6 K/mm3 (1.2-5.4) 03/21/20 05:27 [place] # (Auto) 1.1 K/mm3 (0.0-0.8) H 03/21/20 05:27 Eos # (Auto) 0.3 K/mm3 (0.0-0.4) 03/21/20 05:27 Baso # (Auto) 0.0 K/mm3 (0.0-0.1) 03/21/20 05:27 Add Manual Diff Complete 03/28/20 07:51 Total Counted 100 03/28/20 07:51 Seg Neutrophils % 78.4 % (40.0-70.0) H 03/21/20 05:27 Seg Neuts % (Manual) 86.0 % (40.0-70.0) H 03/28/20 07:51 Band Neutrophils % 3.0 % 03/27/20 08:21 Lymphocytes % (Manual) 10.0 % (13.4-35.0) L 03/28/20 07:51 Monocytes % (Manual) 4.0 % (0.0-7.3) 03/28/20 07:51 Nucleated RBC % Not Reportable 03/28/20 07:51 Seg Neutrophils # 11.1 K/mm3 (1.8-7.7) H 03/21/20 05:27 Seg Neutrophils # Man 27.7 K/mm3 (1.8-7.7) H 03/28/20 07:51 Band Neutrophils # 0.0 K/mm3 03/28/20 07:51 Lymphocytes # (Manual) 3.2 K/mm3 (1.2-5.4) 03/28/20 07:51 Abs React Lymphs (Man) 0.0 K/mm3 03/28/20 07:51 Monocytes # (Manual) 1.3 K/mm3 (0.0-0.8) H 03/28/20 07:51 Eosinophils # (Manual) 0.0 K/mm3 (0.0-0.4) 03/28/20 07:51 Basophils # (Manual) 0.0 K/mm3 (0.0-0.1) 03/28/20 07:51 Metamyelocytes # 0.0 K/mm3 03/28/20 07:51 Myelocytes # 0.0 K/mm3 03/28/20 07:51 Promyelocytes # 0.0 K/mm3 03/28/20 07:51 Blast Cells # 0.0 K/mm3 03/28/20 07:51 WBC Morphology Not Reportable 03/28/20 07:51 Hypersegmented Neuts Not Reportable 03/28/20 07:51 Hyposegmented Neuts Not Reportable 03/28/20 07:51 Hypogranular Neuts Not Reportable 03/28/20 07:51 Smudge Cells Not Reportable 03/28/20 07:51 Toxic Granulation Not Reportable 03/28/20 07:51 Toxic Vacuolation Few 03/28/20 07:51 Dohle Bodies Not Reportable 03/28/20 07:51 Pel[place]-Huet Anomaly Not Reportable 03/28/20 07:51 Natan Rods Not Reportable 03/28/20 07:51 Platelet Estimate Consistent w auto 03/28/20 07:51 Clumped Platelets Not Reportable 03/28/20 07:51 Plt Clumps, EDTA Not Reportable 03/28/20 07:51 Large Platelets Few 03/28/20 07:51 Giant Platelets Not Reportable 03/28/20 07:51 Platelet Satelliting Not Reportable 03/28/20 07:51 Plt Morphology Comment Not Reportable 03/28/20 07:51 RBC Morphology Normal 03/28/20 07:51 Dimorphic RBCs Not Reportable 03/28/20 07:51 Polychromasia Not Reportable 03/28/20 07:51 Hypochromasia Not Reportable 03/28/20 07:51 Poikilocytosis Not Reportable 03/28/20 07:51 Anisocytosis Not Reportable 03/28/20 07:51 Microcytosis Not Reportable 03/28/20 07:51 Macrocytosis Not Reportable 03/28/20 07:51 Spherocytes Not Reportable 03/28/20 07:51 Pappenheimer Bodies Not Reportable 03/28/20 07:51 Sickle Cells Not Reportable 03/28/20 07:51 Target Cells Not Reportable 03/28/20 07:51 Tear Drop Cells Not Reportable 03/28/20 07:51 Ovalocytes Not Reportable 03/28/20 07:51 Helmet Cells Not Reportable 03/28/20 07:51 [place] Bodies Not Reportable 03/28/20 07:51 [place] Rings Not Reportable 03/28/20 07:51 Alexia Cells Not Reportable 03/28/20 07:51 Bite Cells Not Reportable 03/28/20 07:51 Crenated Cell Not Reportable 03/28/20 07:51 Elliptocytes Not Reportable 03/28/20 07:51 Acanthocytes (Spur) Not Reportable 03/28/20 07:51 Rouleaux Not Reportable 03/28/20 07:51 Hemoglobin C Crystals Not Reportable 03/28/20 07:51 Schistocytes Not Reportable 03/28/20 07:51 Malaria parasites Not Reportable 03/28/20 07:51 [place] Bodies Not Reportable 03/28/20 07:51 Hem Pathologist Commnt No 03/28/20 07:51 PT 11.8 Sec. (12.2-14.9) L 03/13/20 16:24 INR 0.89 (0.87-1.13) 03/13/20 16:24 D-Dimer 652.33 ng/mlDDU (0-234) H 04/02/20 05:32 Sodium 136 mmol/L (137-145) L 03/30/20 05:09 Potassium 3.9 mmol/L (3.6-5.0) 03/30/20 05:09 Chloride 96.2 mmol/L (98-107) L 03/30/20 05:09 Carbon Dioxide 28 mmol/L (22-30) 03/30/20 05:09 Anion Gap 16 mmol/L 03/30/20 05:09 BUN 17 mg/dL (7-17) 03/30/20 05:09 Creatinine 0.6 mg/dL (0.6-1.2) 03/30/20 05:09 Estimated GFR > 60 ml/min 03/30/20 05:09 BUN/Creatinine Ratio 28 % 03/30/20 05:09 Glucose 297 mg/dL (65-100) H 03/30/20 05:09 Lactic Acid 1.70 mmol/L (0.7-2.0) 03/13/20 16:24 Calcium 9.2 mg/dL (8.4-10.2) 03/30/20 05:09 Magnesium 1.80 mg/dL (1.7-2.3) 03/13/20 16:24 Total Bilirubin 0.30 mg/dL (0.1-1.2) 03/21/20 05:27 Ferritin 183.1 ng/mL (10.0-200.0) 04/02/20 05:32 Direct Bilirubin < 0.2 mg/dL (0-0.2) 03/16/20 05:18 Indirect Bilirubin 0.1 mg/dL 03/16/20 05:18 AST 12 units/L (5-40) 03/21/20 05:27 ALT 8 units/L (7-56) 03/21/20 05:27 Alkaline Phosphatase 72 units/L (35-129) 03/21/20 05:27 Lactate Dehydrogenase 218 units/L (91-180) H 03/29/20 05:07 Total Creatine Kinase 42 units/L (30-135) 03/13/20 16:24 Troponin T < 0.010 ng/mL (0.00-0.029) 03/13/20 16:24 C-Reactive Protein 2.50 mg/dL (0.00-1.30) H 04/02/20 05:32 NT-Pro-B Natriuret Pep 220.0 pg/mL (0-900) 03/25/20 15:14 Total Protein 7.3 g/dL (6.3-8.2) 03/21/20 05:27 Albumin 3.6 g/dL (3.9-5) L 03/21/20 05:27 Albumin/Globulin Ratio 1.0 % 03/21/20 05:27 Procalcitonin 1.16 ng/mL (<0.15) 03/27/20 18:45 Urine Color Yellow (Yellow) 03/28/20 17:48 Urine Turbidity Clear (Clear) 03/28/20 17:48 Urine pH 6.0 (5.0-7.0) 03/28/20 17:48 Ur Specific [place] 1.036 (1.003-1.030) H 03/28/20 17:48 Urine Protein 30 mg/dl mg/dL (Negative) 03/28/20 17:48 Urine Glucose (UA) >=500 mg/dL (Negative) 03/28/20 17:48 Urine Ketones Tr mg/dL (Negative) 03/28/20 17:48 Urine Blood Neg (Negative) 03/28/20 17:48 Urine Nitrite Neg (Negative) 03/28/20 17:48 Urine Bilirubin Neg (Negative) 03/28/20 17:48 Urine Urobilinogen < 2.0 mg/dL (<2.0) 03/28/20 17:48 Ur Leukocyte Esterase Tr (Negative) 03/28/20 17:48 Urine WBC (Auto) 5.0 /HPF (0.0-6.0) 03/28/20 17:48 Urine RBC (Auto) 2.0 /HPF (0.0-6.0) 03/28/20 17:48 U Epithel Cells (Auto) 2.0 /HPF (0-13.0) 03/28/20 17:48 Urine Mucus Few /HPF 03/28/20 17:48 Vancomycin Trough 5.7 ug/mL (5.0-20.0) 03/28/20 21:20 Coronavirus (PCR) Positive (Negative) A 03/14/20 Unknown SARS-CoV-2 IgG Ab Reactive (NonReactive) A 03/14/20 16:58 [place]/IV: Voiding Method Toilet IV Catheter Type [Left Forearm Peripheral IV ] IV Catheter Type [Right INT / Saline Lock Forearm] IV Catheter Type [Right Wrist] INT / Saline Lock IV Catheter Type [Right Hand] INT / Saline Lock IV Catheter Type [Left Upper INT / Saline Lock arm] IV Catheter Type [Left Peripheral IV Antecubital] Active Medications - Current Medications Current Medications: Generic Name Dose Route Start Last Admin Trade Name Freq PRN Reason Stop Dose Admin Acetaminophen 650 mg 03/13/20 17:21 04/03/20 00:15 Acetaminophen 325 Mg Tab PO 650 mg Q4H PRN Administration Pain MILD(1-3)/Fever >100.5/CARIAS Albuterol 2.5 mg 03/13/20 17:21 Albuterol 2.5 Mg/3 Ml Nebu IH Q4HRT PRN Shortness Of Breath Alprazolam 0.5 mg 03/25/20 20:27 04/02/20 10:47 Alprazolam 0.5 Mg Tab PO 0.5 mg Q8H PRN Administration Anxiety Amitriptyline HCl 10 mg 03/25/20 22:00 04/03/20 00:15 Amitriptyline 10 Mg Tab PO 10 mg QHS SANDY Administration Ascorbic Acid 1,000 mg 03/26/20 10:00 04/03/20 00:14 Ascorbic Acid 500 Mg Tab PO 1,000 mg BID SANDY Administration Benzonatate 100 mg 03/13/20 22:00 04/03/20 06:42 Benzonatate 100 Mg Cap PO 100 mg Q8HR SANDY Administration Duloxetine HCl 60 mg 03/14/20 10:00 04/02/20 10:39 Duloxetine 30 Mg Cap PO 60 mg QDAY SANDY Administration Enoxaparin Sodium 40 mg 03/23/20 22:00 04/03/20 00:15 Enoxaparin 40 Mg/0.4 Ml Inj SUB-Q 40 mg QDAY@2200 SANDY Administration Protocol Ergocalciferol 50,000 unit 03/20/20 10:00 03/27/20 16:01 Ergocalciferol (Vit D2) 50,000 Unit Cap PO 50,000 unit [place] SANDY Administration Famotidine 10 mg 03/29/20 23:00 04/03/20 00:15 Famotidine 20 Mg Tab PO 10 mg BID SANDY Administration Gabapentin 300 mg 03/13/20 20:00 04/03/20 00:15 Gabapentin 300 Mg Cap PO 300 mg TID SANDY Administration Guaifenesin 10 ml 03/13/20 17:24 03/25/20 02:10 Guaifenesin Dm 200/20 Mg Oral Liqd 10 Ml PO 10 ml Q4H PRN Administration Cough Hydroxyzine Pamoate 50 mg 03/13/20 22:00 04/03/20 00:15 Hydroxyzine Pamoate 50 Mg Cap PO 50 mg QID SANDY Administration Lamotrigine 100 mg 03/14/20 10:00 04/02/20 10:40 Lamotrigine 100 Mg Tab PO 100 mg QDAY SANDY Administration Vevay Carbonate 150 mg 03/13/20 22:00 04/03/20 00:14 Vevay Carbonate 150 Mg Cap PO 150 mg BID SANDY Administration Metoprolol Tartrate 12.5 mg 03/31/20 22:00 04/03/20 00:14 Metoprolol Tartrate 25 Mg Tab PO 12.5 mg BID SANDY Administration Montelukast Sodium 10 mg 03/14/20 10:00 04/02/20 10:40 Montelukast 10 Mg Tab PO 10 mg DAILY SANDY Administration Ondansetron HCl 4 mg 03/13/20 17:21 04/03/20 00:14 Ondansetron 4 Mg/2 Ml Inj IV 4 mg Q8H PRN Administration Nausea And Vomiting Oxybutynin Chloride 5 mg 03/13/20 20:00 04/03/20 00:14 Oxybutynin 5 Mg Tab PO 5 mg TID SANDY Administration Oxycodone/Acetaminophen 1 tab 03/30/20 08:06 04/02/20 10:47 Oxycodone /Acetaminophen 5-325mg Tab PO 1 tab Q6H PRN Administration Pain, Moderate (4-6) Phenol 1 spray 03/25/20 20:05 03/26/20 00:27 Phenol 1.4% 177 Ml Bottle MM 1 spray PRN PRN Administration Sore Throat Sodium Chloride 10 ml 03/13/20 22:00 04/03/20 00:25 Sodium Chloride 0.9% 10 Ml Flush Syringe IV 10 ml BID SANDY Administration Sodium Chloride 10 ml 03/13/20 17:21 Sodium Chloride 0.9% 10 Ml Flush Syringe IV PRN PRN LINE FLUSH Trazodone HCl 100 mg 03/13/20 22:00 04/03/20 00:18 Trazodone 100 Mg Tab PO 100 mg QHS SANDY Administration Zinc Sulfate 220 mg 03/26/20 10:00 04/02/20 23:00 Zinc Sulfate 220 Mg Cap PO 220 mg BID SANDY Administration Nutrition/Malnutrition Assess - Dietary Evaluation Nutrition/Malnutrition Findings: Nutrition Notes Start: 03/14/20 15:39 Freq: Status: Active Protocol: Document 03/29/20 13:55 LUIZ (Rec: 03/29/20 14:04 LUIZ [id number]) Nutrition Notes Initial or Follow up Reassessment Current Diagnosis COPD,Sepsis,Hypertension, Hyperlipidemia Other Pertinent Diagnosis Pneu, COVID-19 (+), GERD Current Diet Cardiac + Ensure Enlive TID Labs/Tests BG 243 Pertinent Medications Vit C, Lasix, Zinc sulfate, Solumedrol Height 5 ft 1 in Weight 63 kg [place] Body Weight (kg) 47.72 BMI 26.2 Weight Status Appropriate Subjective/Other Information Unable to reach pt via phone at 11:53 and 13:55. She has consumed 54% of meals since last assessment. Percent of energy/protein needs met: 84% energy 73% pro Burn Absent Trauma Absent Current % PO Fair (50-74%) Minimum of two criteria No #1 Nutrition Diagnosis Inadequate oral intake As Evidenced by Signs and Symptoms pt consuming at least 50% of meals Diagnosis Progress(for reassessment Improved documentation) Is patient on ventilator? No Is Patient Ambulatory and/or Out of Bed Yes REE-([facility]-ambulatory/OOB) [ [id number] [id number]] Calculation Used for Recommendations [facility] Additional Notes Pro needs 1-1.2g/k-76g/ day Fluid needs 1ml/kcal Nutrition Intervention Change Diet Order: Continue current diet order Add Supplement/Snack (indicate name/kcal Change to Glucerna BID (sec to /protein ) elevated BG) Provides kCal: 440 Provides Protein (gm) 20 Goal #1 PO intake of meals plus ONS to meet at least 75% energy and pro needs Follow-Up By: 04/05/20 Additional Comments F/U: intakes (meals/ONS), BG labs
[2020-04-03] MEDS: MONTELUKAST 10 MG TAB PO SCH (11:35)
[2020-04-03] MEDS: ZINC SULFATE 220 MG CAP PO SCH ×2 (11:35→22:11)
[2020-04-03] MEDS: DULoxetine 30 MG CAP PO SCH (11:36)
[2020-04-03] MEDS: lamoTRIgine 100 MG TAB PO SCH (11:36)
[2020-04-03] MEDS: ERGOCALCIFEROL (VIT D2) 50,000 UNIT CAP PO SCH (11:36)
[2020-04-03] MEDS: oxyCODONE /ACETAMINOPHEN 5-325MG TAB PO PRN (12:20)
--- NOTE | 2020-04-03 14:22 | Progress Note ---
Assessment and Plan 64 y/o female with acute on chronic respiratory failure secondary COVID 19 pneumonia. 1. steroids are now off. 2. Gave 20 of lasix yesterday, will give again today. Would check chemistry tomorrow to evaluate K and renal function. 3. Prone as tolerated during the day and sleep prone at night. Patient has been noncompliant with this. Did not prone again last night. 4. Abx therapy per ID 5. Guarded prognosis given prolonged high levels of flow and oxygen requirements. Subjective Date of service: 04/03/20 Principal diagnosis: COVID/COPD Interval history: Flow increased to 14. Encouraged to prone last night but not doing it. Objective Vital Signs - 12hr 04/03/20 04/03/20 04/03/20 03:54 11:31 11:44 Temperature 98.1 F 98.1 F Pulse Rate 99 H 116 H Respiratory 16 18 Rate Blood Pressure 109/57 119/74 O2 Sat by Pulse 97 92 93 Oximetry Constitutional: alert, other (critically ill on HFNC) Eyes: non-icteric Neck: supple Effort: mildly labored Ascultation: Bilateral: clear, wheezes Cardiovascular: other (tachy, RR; no mrg) Gastrointestinal: normoactive bowel sounds, soft, non-tender Integumentary: normal Extremities: no cyanosis, no edema, pink and warm Neurologic: normal mental status, non-focal exam, CN II-XII normal Psychiatric: anxious, other (very fidgety) CBC and BMP: 03/30/20 05:09 03/30/20 05:09 ABG, PT/INR, D-dimer: PT/INR, D-dimer PT 11.8 Sec. (12.2-14.9) L 03/13/20 16:24 INR 0.89 (0.87-1.13) 03/13/20 16:24 D-Dimer 652.33 ng/mlDDU (0-234) H 04/02/20 05:32 Abnormal lab findings: Abnormal Labs 03/13/20 03/13/20 03/13/20 16:24 16:24 16:24 WBC MCH RDW 16.8 H Plt Count Lymph % (Auto) 8.5 L [place]cd[place] % (Auto) Lymph # (Auto) 0.6 L Mcdonald # (Auto) Seg Neutrophils % 84.9 H Seg Neuts % (Manual) Lymphocytes % (Manual) Seg Neutrophils # Seg Neutrophils # Man Lymphocytes # (Manual) Monocytes # (Manual) PT 11.8 L D-Dimer 234.66 H Sodium 135 L Potassium 3.1 L Chloride Carbon Dioxide BUN Glucose 174 H Ferritin Lactate Dehydrogenase 277 H C-Reactive Protein 8.00 H Albumin 3.7 L Ur Specific [place] Coronavirus (PCR) SARS-CoV-2 IgG Ab 03/13/20 03/14/20 03/14/20 16:24 08:02 08:02 WBC 3.9 L MCH RDW 16.3 H Plt Count Lymph % (Auto) Mcd[place] % (Auto) 9.5 H Lymph # (Auto) 0.7 L [place]cd[place] # (Auto) Seg Neutrophils % 72.9 H Seg Neuts % (Manual) Lymphocytes % (Manual) Seg Neutrophils # Seg Neutrophils # Man Lymphocytes # (Manual) Monocytes # (Manual) PT D-Dimer Sodium Potassium Chloride 107.4 H Carbon Dioxide BUN Glucose 174 H 142 H Ferritin Lactate Dehydrogenase 267 H C-Reactive Protein 8.10 H Albumin Ur Specific [place] Coronavirus (PCR) SARS-CoV-2 IgG Ab 03/14/20 03/14/20 03/14/20 16:58 16:58 Unknown WBC MCH RDW Plt Count Lymph % (Auto) [place]cd[place] % (Auto) Lymph # (Auto) Mcd[place] # (Auto) Seg Neutrophils % Seg Neuts % (Manual) Lymphocytes % (Manual) Seg Neutrophils # Seg Neutrophils # Man Lymphocytes # (Manual) Monocytes # (Manual) PT D-Dimer Sodium Potassium Chloride Carbon Dioxide BUN Glucose Ferritin Lactate Dehydrogenase 277 H C-Reactive Protein 2.60 H Albumin Ur Specific [place] Coronavirus (PCR) Positive A SARS-CoV-2 IgG Ab Reactive A 03/16/20 03/16/20 03/16/20 05:18 05:18 10:34 WBC MCH RDW 16.4 H Plt Count Lymph % (Auto) Mcd[place] % (Auto) 10.0 H Lymph # (Auto) Mcdonald # (Auto) Seg Neutrophils % Seg Neuts % (Manual) Lymphocytes % (Manual) Seg Neutrophils # Seg Neutrophils # Man Lymphocytes # (Manual) Monocytes # (Manual) PT D-Dimer 278.32 H Sodium Potassium 3.1 L Chloride Carbon Dioxide BUN Glucose Ferritin Lactate Dehydrogenase C-Reactive Protein Albumin 3.4 L Ur Specific [place] Coronavirus (PCR) SARS-CoV-2 IgG Ab 03/16/20 03/17/20 03/18/20 10:34 21:24 05:58 WBC 14.8 H MCH RDW 15.8 H Plt Count Lymph % (Auto) 11.5 L [place]cd[place] % (Auto) Lymph # (Auto) Mcdonald # (Auto) 1.0 H Seg Neutrophils % 81.3 H Seg Neuts % (Manual) Lymphocytes % (Manual) Seg Neutrophils # 12.0 H Seg Neutrophils # Man Lymphocytes # (Manual) Monocytes # (Manual) PT D-Dimer Sodium Potassium Chloride Carbon Dioxide BUN Glucose 182 H Ferritin Lactate Dehydrogenase 268 H 268 H C-Reactive Protein 2.10 H 4.90 H Albumin Ur Specific [place] Coronavirus (PCR) SARS-CoV-2 IgG Ab 03/18/20 03/21/20 03/21/20 05:58 05:27 05:27 WBC 14.1 H MCH 27 L RDW 16.1 H Plt Count 513 H Lymph % (Auto) 11.5 L [place]cd[place] % (Auto) 7.9 H Lymph # (Auto) Mcdonald # (Auto) 1.1 H Seg Neutrophils % 78.4 H Seg Neuts % (Manual) Lymphocytes % (Manual) Seg Neutrophils # 11.1 H Seg Neutrophils # Man Lymphocytes # (Manual) Monocytes # (Manual) PT D-Dimer Sodium Potassium 2.9 L* Chloride Carbon Dioxide 18 L BUN Glucose Ferritin Lactate Dehydrogenase C-Reactive Protein Albumin 3.6 L 3.6 L Ur Specific [place] Coronavirus (PCR) SARS-CoV-2 IgG Ab 03/22/20 03/22/20 03/22/20 15:45 15:45 15:45 WBC MCH RDW Plt Count Lymph % (Auto) Mcd[place] % (Auto) Lymph # (Auto) Mcdonald # (Auto) Seg Neutrophils % Seg Neuts % (Manual) Lymphocytes % (Manual) Seg Neutrophils # Seg Neutrophils # Man Lymphocytes # (Manual) Monocytes # (Manual) PT D-Dimer 274.02 H Sodium Potassium Chloride Carbon Dioxide BUN Glucose Ferritin Lactate Dehydrogenase 259 H C-Reactive Protein 7.60 H Albumin Ur Specific [place] Coronavirus (PCR) SARS-CoV-2 IgG Ab 03/26/20 03/26/20 03/27/20 05:45 05:45 08:21 WBC 34.9 H MCH RDW 15.9 H Plt Count 579 H Lymph % (Auto) Mcdonald % (Auto) Lymph # (Auto) Mcdonald # (Auto) Seg Neutrophils % Seg Neuts % (Manual) Lymphocytes % (Manual) Seg Neutrophils # Seg Neutrophils # Man Lymphocytes # (Manual) Monocytes # (Manual) PT D-Dimer Sodium 130 L 130 L Potassium Chloride 86.0 L 88.5 L Carbon Dioxide 35 H BUN 22 H Glucose 227 H 326 H Ferritin Lactate Dehydrogenase 213 H C-Reactive Protein 34.50 H Albumin Ur Specific [place] Coronavirus (PCR) SARS-CoV-2 IgG Ab 03/27/20 03/27/20 03/27/20 08:21 18:45 18:45 WBC 42.1 H* MCH RDW 16.3 H Plt Count Lymph % (Auto) [place]cd[place] % (Auto) Lymph # (Auto) Mcdonald # (Auto) Seg Neutrophils % Seg Neuts % (Manual) 91.0 H Lymphocytes % (Manual) 2.0 L Seg Neutrophils # Seg Neutrophils # Man 38.3 H Lymphocytes # (Manual) 0.8 L Monocytes # (Manual) 1.7 H PT D-Dimer Sodium Potassium Chloride Carbon Dioxide BUN Glucose Ferritin 400.5 H Lactate Dehydrogenase C-Reactive Protein 49.70 H Albumin Ur Specific [place] Coronavirus (PCR) SARS-CoV-2 IgG Ab 03/28/20 03/28/20 03/28/20 07:51 07:51 07:51 WBC 32.2 H MCH 27 L RDW 16.3 H Plt Count Lymph % (Auto) [place]cd[place] % (Auto) Lymph # (Auto) Mcdonald # (Auto) Seg Neutrophils % Seg Neuts % (Manual) 86.0 H Lymphocytes % (Manual) 10.0 L Seg Neutrophils # Seg Neutrophils # Man 27.7 H Lymphocytes # (Manual) Monocytes # (Manual) 1.3 H PT D-Dimer 1182.25 H Sodium Potassium Chloride Carbon Dioxide BUN Glucose Ferritin 514.4 H Lactate Dehydrogenase C-Reactive Protein Albumin Ur Specific [place] Coronavirus (PCR) SARS-CoV-2 IgG Ab 03/28/20 03/28/20 03/29/20 07:51 17:48 05:07 WBC MCH RDW Plt Count Lymph % (Auto) Mcdonald % (Auto) Lymph # (Auto) Mcdonald # (Auto) Seg Neutrophils % Seg Neuts % (Manual) Lymphocytes % (Manual) Seg Neutrophils # Seg Neutrophils # Man Lymphocytes # (Manual) Monocytes # (Manual) PT D-Dimer Sodium 136 L Potassium Chloride 93.0 L Carbon Dioxide 35 H BUN Glucose 243 H Ferritin Lactate Dehydrogenase 218 H C-Reactive Protein 18.00 H Albumin Ur Specific [place] 1.036 H Coronavirus (PCR) SARS-CoV-2 IgG Ab 03/29/20 03/29/20 03/30/20 05:07 14:39 05:09 WBC 22.0 H 11.4 H MCH 27 L 27 L RDW 16.0 H 16.1 H Plt Count Lymph % (Auto) Mcdonald % (Auto) Lymph # (Auto) Mcdonald # (Auto) Seg Neutrophils % Seg Neuts % (Manual) Lymphocytes % (Manual) Seg Neutrophils # Seg Neutrophils # Man Lymphocytes # (Manual) Monocytes # (Manual) PT D-Dimer Sodium 131 L Potassium Chloride 91.7 L Carbon Dioxide 31 H BUN Glucose 328 H Ferritin Lactate Dehydrogenase C-Reactive Protein Albumin Ur Specific [place] Coronavirus (PCR) SARS-CoV-2 IgG Ab 03/30/20 03/31/20 03/31/20 05:09 05:43 05:43 WBC MCH RDW Plt Count Lymph % (Auto) Mcdonald % (Auto) Lymph # (Auto) Mcdonald # (Auto) Seg Neutrophils % Seg Neuts % (Manual) Lymphocytes % (Manual) Seg Neutrophils # Seg Neutrophils # Man Lymphocytes # (Manual) Monocytes # (Manual) PT D-Dimer 734.03 H Sodium 136 L Potassium Chloride 96.2 L Carbon Dioxide BUN Glucose 297 H Ferritin 404.1 H Lactate Dehydrogenase C-Reactive Protein Albumin Ur Specific [place] Coronavirus (PCR) SARS-CoV-2 IgG Ab 03/31/20 04/02/20 04/02/20 05:43 05:32 05:32 WBC MCH RDW Plt Count Lymph % (Auto) Mcdonald % (Auto) Lymph # (Auto) Mcdonald # (Auto) Seg Neutrophils % Seg Neuts % (Manual) Lymphocytes % (Manual) Seg Neutrophils # Seg Neutrophils # Man Lymphocytes # (Manual) Monocytes # (Manual) PT D-Dimer 652.33 H Sodium Potassium Chloride Carbon Dioxide BUN Glucose Ferritin Lactate Dehydrogenase C-Reactive Protein 3.10 H 2.50 H Albumin Ur Specific [place] Coronavirus (PCR) SARS-CoV-2 IgG Ab
[2020-04-03] MEDS ORDERED: FUROSEMIDE 20 MG/2 ML INJ IV SCH (15:00)
[2020-04-04] MEDS: oxyCODONE /ACETAMINOPHEN 5-325MG TAB PO PRN ×2 (04:08→17:29)
[2020-04-04] MEDS: guaiFENesin DM 200/20 MG ORAL LIQD 10 ML PO PRN (04:09)
[2020-04-04] MEDS: BENZONATATE 100 MG CAP PO SCH ×3 (05:22→21:35)
[2020-04-04] MEDS: GABAPENTIN 300 MG CAP PO SCH ×3 (08:56→21:37)
[2020-04-04] MEDS: OXYBUTYNIN 5 MG TAB PO SCH ×3 (08:56→21:36)
[2020-04-04] MEDS: DULoxetine 30 MG CAP PO SCH (09:29)
[2020-04-04] MEDS: ASCORBIC ACID 500 MG TAB PO SCH ×2 (09:29→21:36)
[2020-04-04] MEDS: LITHIUM CARBONATE 150 MG CAP PO SCH ×2 (09:29→21:36)
[2020-04-04] MEDS: lamoTRIgine 100 MG TAB PO SCH (09:29)
[2020-04-04] MEDS: MONTELUKAST 10 MG TAB PO SCH (09:29)
[2020-04-04] MEDS: FAMOTIDINE 20 MG TAB PO SCH ×2 (09:30→21:34)
[2020-04-04] MEDS: ZINC SULFATE 220 MG CAP PO SCH ×2 (09:30→21:35)
[2020-04-04] MEDS: METOPROLOL TARTRATE 25 MG TAB PO SCH ×2 (09:33→21:43)
[2020-04-04] MEDS: ONDANSETRON 4 MG/2 ML INJ IV PRN ×2 (09:43→22:16)
--- NOTE | 2020-04-04 12:40 | Progress Note ---
Assessment and Plan 64 y/o female with acute on chronic respiratory failure secondary COVID 19 pneumonia. 1. steroids are now off. 2. BMP is pending. If renal function and k are ok, would give another 20 of lasix IV. 3. Prone as tolerated during the day and sleep prone at night. Patient has been noncompliant with this. Did not prone again last night. 4. Abx therapy per ID 5. Guarded prognosis given prolonged high levels of flow and oxygen requir ements. Subjective Date of service: 04/04/20 Principal diagnosis: COVID/COPD Interval history: No acute events. Down to 13 liters now. Objective Vital Signs - 12hr 04/04/20 04/04/20 04/04/20 04:08 05:08 05:20 Temperature 97.6 F Pulse Rate 106 H Respiratory 18 19 16 Rate Blood Pressure 112/58 O2 Sat by Pulse 96 Oximetry 04/04/20 04/04/20 04/04/20 08:00 09:33 10:00 Temperature Pulse Rate 106 H Respiratory Rate Blood Pressure O2 Sat by Pulse 96 93 Oximetry 04/04/20 12:18 Temperature 98.1 F Pulse Rate 107 H Respiratory 18 Rate Blood Pressure 116/50 O2 Sat by Pulse 93 Oximetry Constitutional: alert, other (critically ill on HFNC) Eyes: non-icteric Neck: supple Effort: mildly labored Ascultation: Bilateral: clear, wheezes Cardiovascular: other (tachy, RR; no mrg) Gastrointestinal: normoactive bowel sounds, soft, non-tender Integumentary: normal Extremities: no cyanosis, no edema, pink and warm Neurologic: normal mental status, non-focal exam, CN II-XII normal Psychiatric: anxious, other (very fidgety) CBC and BMP: 03/30/20 05:09 03/30/20 05:09 ABG, PT/INR, D-dimer: PT/INR, D-dimer PT 11.8 Sec. (12.2-14.9) L 03/13/20 16:24 INR 0.89 (0.87-1.13) 03/13/20 16:24 D-Dimer 652.33 ng/mlDDU (0-234) H 04/02/20 05:32 Abnormal lab findings: Abnormal Labs 03/13/20 03/13/20 03/13/20 16:24 16:24 16:24 WBC MCH RDW 16.8 H Plt Count Lymph % (Auto) 8.5 L [place] % (Auto) Lymph # (Auto) 0.6 L [place] # (Auto) Seg Neutrophils % 84.9 H Seg Neuts % (Manual) Lymphocytes % (Manual) Seg Neutrophils # Seg Neutrophils # Man Lymphocytes # (Manual) Monocytes # (Manual) PT 11.8 L D-Dimer 234.66 H Sodium 135 L Potassium 3.1 L Chloride Carbon Dioxide BUN Glucose 174 H Ferritin Lactate Dehydrogenase 277 H C-Reactive Protein 8.00 H Albumin 3.7 L Ur Specific [place] Coronavirus (PCR) SARS-CoV-2 IgG Ab 03/13/20 03/14/20 03/14/20 16:24 08:02 08:02 WBC 3.9 L MCH RDW 16.3 H Plt Count Lymph % (Auto) [place] % (Auto) 9.5 H Lymph # (Auto) 0.7 L [place] # (Auto) Seg Neutrophils % 72.9 H Seg Neuts % (Manual) Lymphocytes % (Manual) Seg Neutrophils # Seg Neutrophils # Man Lymphocytes # (Manual) Monocytes # (Manual) PT D-Dimer Sodium Potassium Chloride 107.4 H Carbon Dioxide BUN Glucose 174 H 142 H Ferritin Lactate Dehydrogenase 267 H C-Reactive Protein 8.10 H Albumin Ur Specific [place] Coronavirus (PCR) SARS-CoV-2 IgG Ab 03/14/20 03/14/20 03/14/20 16:58 16:58 Unknown WBC MCH RDW Plt Count Lymph % (Auto) [place] % (Auto) Lymph # (Auto) [place] # (Auto) Seg Neutrophils % Seg Neuts % (Manual) Lymphocytes % (Manual) Seg Neutrophils # Seg Neutrophils # Man Lymphocytes # (Manual) Monocytes # (Manual) PT D-Dimer Sodium Potassium Chloride Carbon Dioxide BUN Glucose Ferritin Lactate Dehydrogenase 277 H C-Reactive Protein 2.60 H Albumin Ur Specific [place] Coronavirus (PCR) Positive A SARS-CoV-2 IgG Ab Reactive A 03/16/20 03/16/20 03/16/20 05:18 05:18 10:34 WBC MCH RDW 16.4 H Plt Count Lymph % (Auto) [place] % (Auto) 10.0 H Lymph # (Auto) [place] # (Auto) Seg Neutrophils % Seg Neuts % (Manual) Lymphocytes % (Manual) Seg Neutrophils # Seg Neutrophils # Man Lymphocytes # (Manual) Monocytes # (Manual) PT D-Dimer 278.32 H Sodium Potassium 3.1 L Chloride Carbon Dioxide BUN Glucose Ferritin Lactate Dehydrogenase C-Reactive Protein Albumin 3.4 L Ur Specific [place] Coronavirus (PCR) SARS-CoV-2 IgG Ab 03/16/20 03/17/20 03/18/20 10:34 21:24 05:58 WBC 14.8 H MCH RDW 15.8 H Plt Count Lymph % (Auto) 11.5 L [place] % (Auto) Lymph # (Auto) [place] # (Auto) 1.0 H Seg Neutrophils % 81.3 H Seg Neuts % (Manual) Lymphocytes % (Manual) Seg Neutrophils # 12.0 H Seg Neutrophils # Man Lymphocytes # (Manual) Monocytes # (Manual) PT D-Dimer Sodium Potassium Chloride Carbon Dioxide BUN Glucose 182 H Ferritin Lactate Dehydrogenase 268 H 268 H C-Reactive Protein 2.10 H 4.90 H Albumin Ur Specific [place] Coronavirus (PCR) SARS-CoV-2 IgG Ab 03/18/20 03/21/20 03/21/20 05:58 05:27 05:27 WBC 14.1 H MCH 27 L RDW 16.1 H Plt Count 513 H Lymph % (Auto) 11.5 L [place] % (Auto) 7.9 H Lymph # (Auto) [place] # (Auto) 1.1 H Seg Neutrophils % 78.4 H Seg Neuts % (Manual) Lymphocytes % (Manual) Seg Neutrophils # 11.1 H Seg Neutrophils # Man Lymphocytes # (Manual) Monocytes # (Manual) PT D-Dimer Sodium Potassium 2.9 L* Chloride Carbon Dioxide 18 L BUN Glucose Ferritin Lactate Dehydrogenase C-Reactive Protein Albumin 3.6 L 3.6 L Ur Specific [place] Coronavirus (PCR) SARS-CoV-2 IgG Ab 03/22/20 03/22/20 03/22/20 15:45 15:45 15:45 WBC MCH RDW Plt Count Lymph % (Auto) [place] % (Auto) Lymph # (Auto) [place] # (Auto) Seg Neutrophils % Seg Neuts % (Manual) Lymphocytes % (Manual) Seg Neutrophils # Seg Neutrophils # Man Lymphocytes # (Manual) Monocytes # (Manual) PT D-Dimer 274.02 H Sodium Potassium Chloride Carbon Dioxide BUN Glucose Ferritin Lactate Dehydrogenase 259 H C-Reactive Protein 7.60 H Albumin Ur Specific [place] Coronavirus (PCR) SARS-CoV-2 IgG Ab 03/26/20 03/26/20 03/27/20 05:45 05:45 08:21 WBC 34.9 H MCH RDW 15.9 H Plt Count 579 H Lymph % (Auto) [place] % (Auto) Lymph # (Auto) [place] # (Auto) Seg Neutrophils % Seg Neuts % (Manual) Lymphocytes % (Manual) Seg Neutrophils # Seg Neutrophils # Man Lymphocytes # (Manual) Monocytes # (Manual) PT D-Dimer Sodium 130 L 130 L Potassium Chloride 86.0 L 88.5 L Carbon Dioxide 35 H BUN 22 H Glucose 227 H 326 H Ferritin Lactate Dehydrogenase 213 H C-Reactive Protein 34.50 H Albumin Ur Specific [place] Coronavirus (PCR) SARS-CoV-2 IgG Ab 03/27/20 03/27/20 03/27/20 08:21 18:45 18:45 WBC 42.1 H* MCH RDW 16.3 H Plt Count Lymph % (Auto) [place] % (Auto) Lymph # (Auto) [place] # (Auto) Seg Neutrophils % Seg Neuts % (Manual) 91.0 H Lymphocytes % (Manual) 2.0 L Seg Neutrophils # Seg Neutrophils # Man 38.3 H Lymphocytes # (Manual) 0.8 L Monocytes # (Manual) 1.7 H PT D-Dimer Sodium Potassium Chloride Carbon Dioxide BUN Glucose Ferritin 400.5 H Lactate Dehydrogenase C-Reactive Protein 49.70 H Albumin Ur Specific [place] Coronavirus (PCR) SARS-CoV-2 IgG Ab 03/28/20 03/28/20 03/28/20 07:51 07:51 07:51 WBC 32.2 H MCH 27 L RDW 16.3 H Plt Count Lymph % (Auto) [place] % (Auto) Lymph # (Auto) [place] # (Auto) Seg Neutrophils % Seg Neuts % (Manual) 86.0 H Lymphocytes % (Manual) 10.0 L Seg Neutrophils # Seg Neutrophils # Man 27.7 H Lymphocytes # (Manual) Monocytes # (Manual) 1.3 H PT D-Dimer 1182.25 H Sodium Potassium Chloride Carbon Dioxide BUN Glucose Ferritin 514.4 H Lactate Dehydrogenase C-Reactive Protein Albumin Ur Specific [place] Coronavirus (PCR) SARS-CoV-2 IgG Ab 03/28/20 03/28/20 03/29/20 07:51 17:48 05:07 WBC MCH RDW Plt Count Lymph % (Auto) [place] % (Auto) Lymph # (Auto) [place] # (Auto) Seg Neutrophils % Seg Neuts % (Manual) Lymphocytes % (Manual) Seg Neutrophils # Seg Neutrophils # Man Lymphocytes # (Manual) Monocytes # (Manual) PT D-Dimer Sodium 136 L Potassium Chloride 93.0 L Carbon Dioxide 35 H BUN Glucose 243 H Ferritin Lactate Dehydrogenase 218 H C-Reactive Protein 18.00 H Albumin Ur Specific [place] 1.036 H Coronavirus (PCR) SARS-CoV-2 IgG Ab 03/29/20 03/29/20 03/30/20 05:07 14:39 05:09 WBC 22.0 H 11.4 H MCH 27 L 27 L RDW 16.0 H 16.1 H Plt Count Lymph % (Auto) [place] % (Auto) Lymph # (Auto) [place] # (Auto) Seg Neutrophils % Seg Neuts % (Manual) Lymphocytes % (Manual) Seg Neutrophils # Seg Neutrophils # Man Lymphocytes # (Manual) Monocytes # (Manual) PT D-Dimer Sodium 131 L Potassium Chloride 91.7 L Carbon Dioxide 31 H BUN Glucose 328 H Ferritin Lactate Dehydrogenase C-Reactive Protein Albumin Ur Specific [place] Coronavirus (PCR) SARS-CoV-2 IgG Ab 03/30/20 03/31/20 03/31/20 05:09 05:43 05:43 WBC MCH RDW Plt Count Lymph % (Auto) [place] % (Auto) Lymph # (Auto) [place] # (Auto) Seg Neutrophils % Seg Neuts % (Manual) Lymphocytes % (Manual) Seg Neutrophils # Seg Neutrophils # Man Lymphocytes # (Manual) Monocytes # (Manual) PT D-Dimer 734.03 H Sodium 136 L Potassium Chloride 96.2 L Carbon Dioxide BUN Glucose 297 H Ferritin 404.1 H Lactate Dehydrogenase C-Reactive Protein Albumin Ur Specific [place] Coronavirus (PCR) SARS-CoV-2 IgG Ab 03/31/20 04/02/20 04/02/20 05:43 05:32 05:32 WBC MCH RDW Plt Count Lymph % (Auto) [place] % (Auto) Lymph # (Auto) [place] # (Auto) Seg Neutrophils % Seg Neuts % (Manual) Lymphocytes % (Manual) Seg Neutrophils # Seg Neutrophils # Man Lymphocytes # (Manual) Monocytes # (Manual) PT D-Dimer 652.33 H Sodium Potassium Chloride Carbon Dioxide BUN Glucose Ferritin Lactate Dehydrogenase C-Reactive Protein 3.10 H 2.50 H Albumin Ur Specific [place] Coronavirus (PCR) SARS-CoV-2 IgG Ab
[2020-04-04 17:54] LABS: Blood Urea Nitrogen 11 mg/dL (7-17); Calcium 9.5 mg/dL (8.4-10.2); Hemolysis Index 10
[2020-04-04 17:55] LABS: BUN/Creatinine Ratio 16
[2020-04-04] MEDS ORDERED: POTASSIUM CHLORIDE ER 20 MEQ TAB PO NR (18:18)
--- NOTE | 2020-04-04 18:23 | Progress Note ---
Assessment and Plan Assessment and plan: --Sepsis; due to COVID-19 infection Current Visit: Yes Status: Acute Plan to address problem: tachypnea, tachycardia, febrile at 102, acute respiratory failure with hypoxia and chest x-ray bilateral patchy infiltrate left greater than right. Patient positive for COVID-19 Infectious disease following S/p empiric antibiotic therapy 03/13 blood cultures x2 no growth after 5 days -- Pneumonia due to COVID-19 virus Current Visit: Yes Status: Acute Plan to address problem: 03/14/20 COVID-19 PCR positive 03/14 Covid 19 antibody positive, not a candidate for convalescent plasma Chest x-ray showed bilateral patchy infiltrate left greater than right. S/p cefepime S/p remdesivir and Decadron Patient now on Solu-Medrol per pulmonology Trend inflammatory markers for wrist education Droplet/contact isolation Supplemental oxygen as needed Anticoagulation per protocol Pulmonary hygiene Continue SPO2 monitoring Prone to sleep as tolerated -- Acute hypoxemic respiratory failure Current Visit: Yes Status: Acute Plan to address problem: Oxygen titrate O2 sats to more than 90% Follow cultures, supportive care -- Leukocytosis Current Visit: Yes Status: Acute Plan to address problem: Worsening leukocytosis, Secondary to sepsis, partly due to steroid use Continue current antibiotics, follow cultures, Taper steroid dose ID recommend CT abdomen and pelvis if leukocytosis does not improve Continue supportive care -- Hyponatremia Current Visit: Yes Status: Acute Plan to address problem: Significantly improved Continue current management Monitor electrolytes -- Elevated d-dimer Current Visit: Yes Status: Acute Plan to address problem: Elevated D-dimer 1182 Anticoagulation per protocol Unable to get VQ scan or CTA chest bilateral lower extremity Doppler negative for DVT -- Hypertension moderate control Current Visit: Yes Status: Chronic Plan to address problem: Continue current antihypertensives As needed medications --Hyperlipidemia Current Visit: Yes Status: Chronic Plan to address problem: Continue home statin, low-cholesterol diet -- GERD (gastroesophageal reflux disease) Current Visit: Yes Status: Chronic Plan to address problem: Continue home PPI --History of COPD (chronic obstructive pulmonary disease) Current Visit: Yes Status: Chronic Plan to address problem: Oxygen titrate O2 sats to more than 90% Nebulizers, steroids Pulmonary following, optimize medications --DVT prophylaxis Current Visit: Yes Status: Acute Plan to address problem: Subcu Lovenox/SCDs Full CODE STATUS Patient is critically ill Requiring high flow oxygen 15 L nasal cannula Poor prognosis, consults and recommendations noted and appreciated Plan of care reviewed with the patient and her nurse History Interval history: I have seen the patient in her room from a distance Isolation precautions PPE protocols strictly observed Patient is in mild distress Continues to use high flow oxygen Vital signs reviewed Hospitalist Physical - Constitutional Vitals: Temp Pulse Resp BP Pulse Ox 98.3 F 121 H 18 108/63 94 04/04/20 17:43 04/04/20 17:43 04/04/20 17:43 04/04/20 17:43 04/04/20 17:43 General appearance: Present: mild distress, well-nourished, other (On high flow oxygen) - EENT ENT: other (Physical exam not performed, to reduce risk of transmission of Covid) - Neck Neck: Present: other (Physical exam not performed, to reduce risk of transmission of Covid) - Respiratory Respiratory effort: other (Physical exam not performed, to reduce risk of transmission of Covid) - Extremities Extremity abnormal: other (Physical exam not performed, to reduce risk of transmission of Covid) - Abdominal General gastrointestinal: other (Physical exam not performed, to reduce risk of transmission of Covid) - Psychiatric Psychiatric: other (Physical exam not performed, to reduce risk of transmission of Covid) HEART Score - HEART Score Troponin: Troponin T < 0.010 ng/mL (0.00-0.029) 03/13/20 16:24 Results - Labs CBC & Chem 7: 03/30/20 05:09 04/04/20 17:15 Labs: Laboratory Last Values WBC 11.4 K/mm3 (4.5-11.0) H 03/30/20 05:09 RBC 4.04 M/mm3 (3.65-5.03) 03/30/20 05:09 Hgb 11.0 gm/dl (10.1-14.3) 03/30/20 05:09 Hct 33.6 % (30.3-42.9) 03/30/20 05:09 MCV 83 fl (79-97) 03/30/20 05:09 MCH 27 pg (28-32) L 03/30/20 05:09 MCHC 33 % (30-34) 03/30/20 05:09 RDW 16.1 % (13.2-15.2) H 03/30/20 05:09 Plt Count 309 K/mm3 (140-440) 03/30/20 05:09 Lymph % (Auto) 11.5 % (13.4-35.0) L 03/21/20 05:27 [place] % (Auto) 7.9 % (0.0-7.3) H 03/21/20 05:27 Eos % (Auto) 2.0 % (0.0-4.3) 03/21/20 05:27 Baso % (Auto) 0.2 % (0.0-1.8) 03/21/20 05:27 Lymph # (Auto) 1.6 K/mm3 (1.2-5.4) 03/21/20 05:27 [place] # (Auto) 1.1 K/mm3 (0.0-0.8) H 03/21/20 05:27 Eos # (Auto) 0.3 K/mm3 (0.0-0.4) 03/21/20 05:27 Baso # (Auto) 0.0 K/mm3 (0.0-0.1) 03/21/20 05:27 Add Manual Diff Complete 03/28/20 07:51 Total Counted 100 03/28/20 07:51 Seg Neutrophils % 78.4 % (40.0-70.0) H 03/21/20 05:27 Seg Neuts % (Manual) 86.0 % (40.0-70.0) H 03/28/20 07:51 Band Neutrophils % 3.0 % 03/27/20 08:21 Lymphocytes % (Manual) 10.0 % (13.4-35.0) L 03/28/20 07:51 Monocytes % (Manual) 4.0 % (0.0-7.3) 03/28/20 07:51 Nucleated RBC % Not Reportable 03/28/20 07:51 Seg Neutrophils # 11.1 K/mm3 (1.8-7.7) H 03/21/20 05:27 Seg Neutrophils # Man 27.7 K/mm3 (1.8-7.7) H 03/28/20 07:51 Band Neutrophils # 0.0 K/mm3 03/28/20 07:51 Lymphocytes # (Manual) 3.2 K/mm3 (1.2-5.4) 03/28/20 07:51 Abs React Lymphs (Man) 0.0 K/mm3 03/28/20 07:51 Monocytes # (Manual) 1.3 K/mm3 (0.0-0.8) H 03/28/20 07:51 Eosinophils # (Manual) 0.0 K/mm3 (0.0-0.4) 03/28/20 07:51 Basophils # (Manual) 0.0 K/mm3 (0.0-0.1) 03/28/20 07:51 Metamyelocytes # 0.0 K/mm3 03/28/20 07:51 Myelocytes # 0.0 K/mm3 03/28/20 07:51 Promyelocytes # 0.0 K/mm3 03/28/20 07:51 Blast Cells # 0.0 K/mm3 03/28/20 07:51 WBC Morphology Not Reportable 03/28/20 07:51 Hypersegmented Neuts Not Reportable 03/28/20 07:51 Hyposegmented Neuts Not Reportable 03/28/20 07:51 Hypogranular Neuts Not Reportable 03/28/20 07:51 Smudge Cells Not Reportable 03/28/20 07:51 Toxic Granulation Not Reportable 03/28/20 07:51 Toxic Vacuolation Few 03/28/20 07:51 Dohle Bodies Not Reportable 03/28/20 07:51 Pel[place]-Huet Anomaly Not Reportable 03/28/20 07:51 Natan Rods Not Reportable 03/28/20 07:51 Platelet Estimate Consistent w auto 03/28/20 07:51 Clumped Platelets Not Reportable 03/28/20 07:51 Plt Clumps, EDTA Not Reportable 03/28/20 07:51 Large Platelets Few 03/28/20 07:51 Giant Platelets Not Reportable 03/28/20 07:51 Platelet Satelliting Not Reportable 03/28/20 07:51 Plt Morphology Comment Not Reportable 03/28/20 07:51 RBC Morphology Normal 03/28/20 07:51 Dimorphic RBCs Not Reportable 03/28/20 07:51 Polychromasia Not Reportable 03/28/20 07:51 Hypochromasia Not Reportable 03/28/20 07:51 Poikilocytosis Not Reportable 03/28/20 07:51 Anisocytosis Not Reportable 03/28/20 07:51 Microcytosis Not Reportable 03/28/20 07:51 Macrocytosis Not Reportable 03/28/20 07:51 Spherocytes Not Reportable 03/28/20 07:51 Pappenheimer Bodies Not Reportable 03/28/20 07:51 Sickle Cells Not Reportable 03/28/20 07:51 Target Cells Not Reportable 03/28/20 07:51 Tear Drop Cells Not Reportable 03/28/20 07:51 Ovalocytes Not Reportable 03/28/20 07:51 Helmet Cells Not Reportable 03/28/20 07:51 [place] Bodies Not Reportable 03/28/20 07:51 [place] Rings Not Reportable 03/28/20 07:51 [place] Cells Not Reportable 03/28/20 07:51 Bite Cells Not Reportable 03/28/20 07:51 Crenated Cell Not Reportable 03/28/20 07:51 Elliptocytes Not Reportable 03/28/20 07:51 Acanthocytes (Spur) Not Reportable 03/28/20 07:51 Rouleaux Not Reportable 03/28/20 07:51 Hemoglobin C Crystals Not Reportable 03/28/20 07:51 Schistocytes Not Reportable 03/28/20 07:51 Malaria parasites Not Reportable 03/28/20 07:51 [place] Bodies Not Reportable 03/28/20 07:51 Hem Pathologist Commnt No 03/28/20 07:51 PT 11.8 Sec. (12.2-14.9) L 03/13/20 16:24 INR 0.89 (0.87-1.13) 03/13/20 16:24 D-Dimer 652.33 ng/mlDDU (0-234) H 04/02/20 05:32 Sodium 130 mmol/L (137-145) L 04/04/20 17:15 Potassium 3.0 mmol/L (3.6-5.0) L 04/04/20 17:15 Chloride 90.6 mmol/L (98-107) L 04/04/20 17:15 Carbon Dioxide 32 mmol/L (22-30) H 04/04/20 17:15 Anion Gap 10 mmol/L 04/04/20 17:15 BUN 11 mg/dL (7-17) 04/04/20 17:15 Creatinine 0.7 mg/dL (0.6-1.2) 04/04/20 17:15 Estimated GFR > 60 ml/min 04/04/20 17:15 BUN/Creatinine Ratio 16 % 04/04/20 17:15 Glucose 135 mg/dL (65-100) H 04/04/20 17:15 Lactic Acid 1.70 mmol/L (0.7-2.0) 03/13/20 16:24 Calcium 9.5 mg/dL (8.4-10.2) 04/04/20 17:15 Magnesium 1.80 mg/dL (1.7-2.3) 03/13/20 16:24 Total Bilirubin 0.30 mg/dL (0.1-1.2) 03/21/20 05:27 Ferritin 183.1 ng/mL (10.0-200.0) 04/02/20 05:32 Direct Bilirubin < 0.2 mg/dL (0-0.2) 03/16/20 05:18 Indirect Bilirubin 0.1 mg/dL 03/16/20 05:18 AST 12 units/L (5-40) 03/21/20 05:27 ALT 8 units/L (7-56) 03/21/20 05:27 Alkaline Phosphatase 72 units/L (35-129) 03/21/20 05:27 Lactate Dehydrogenase 218 units/L (91-180) H 03/29/20 05:07 Total Creatine Kinase 42 units/L (30-135) 03/13/20 16:24 Troponin T < 0.010 ng/mL (0.00-0.029) 03/13/20 16:24 C-Reactive Protein 2.50 mg/dL (0.00-1.30) H 04/02/20 05:32 NT-Pro-B Natriuret Pep 220.0 pg/mL (0-900) 03/25/20 15:14 Total Protein 7.3 g/dL (6.3-8.2) 03/21/20 05:27 Albumin 3.6 g/dL (3.9-5) L 03/21/20 05:27 Albumin/Globulin Ratio 1.0 % 03/21/20 05:27 Procalcitonin 1.16 ng/mL (<0.15) 03/27/20 18:45 Urine Color Yellow (Yellow) 03/28/20 17:48 Urine Turbidity Clear (Clear) 03/28/20 17:48 Urine pH 6.0 (5.0-7.0) 03/28/20 17:48 Ur Specific [place] 1.036 (1.003-1.030) H 03/28/20 17:48 Urine Protein 30 mg/dl mg/dL (Negative) 03/28/20 17:48 Urine Glucose (UA) >=500 mg/dL (Negative) 03/28/20 17:48 Urine Ketones Tr mg/dL (Negative) 03/28/20 17:48 Urine Blood Neg (Negative) 03/28/20 17:48 Urine Nitrite Neg (Negative) 03/28/20 17:48 Urine Bilirubin Neg (Negative) 03/28/20 17:48 Urine Urobilinogen < 2.0 mg/dL (<2.0) 03/28/20 17:48 Ur Leukocyte Esterase Tr (Negative) 03/28/20 17:48 Urine WBC (Auto) 5.0 /HPF (0.0-6.0) 03/28/20 17:48 Urine RBC (Auto) 2.0 /HPF (0.0-6.0) 03/28/20 17:48 U Epithel Cells (Auto) 2.0 /HPF (0-13.0) 03/28/20 17:48 Urine Mucus Few /HPF 03/28/20 17:48 Vancomycin Trough 5.7 ug/mL (5.0-20.0) 03/28/20 21:20 Coronavirus (PCR) Positive (Negative) A 03/14/20 Unknown SARS-CoV-2 IgG Ab Reactive (NonReactive) A 03/14/20 16:58 [place]/IV: Voiding Method Bedside Commode IV Catheter Type [Left Forearm Peripheral IV ] IV Catheter Type [Right INT / Saline Lock Forearm] IV Catheter Type [Right Wrist] INT / Saline Lock IV Catheter Type [Right Hand] INT / Saline Lock IV Catheter Type [Left Upper INT / Saline Lock arm] IV Catheter Type [Left Peripheral IV Antecubital] Active Medications - Current Medications Current Medications: Generic Name Dose Route Start Last Admin Trade Name Freq PRN Reason Stop Dose Admin Acetaminophen 650 mg 03/13/20 17:21 04/03/20 00:15 Acetaminophen 325 Mg Tab PO 650 mg Q4H PRN Administration Pain MILD(1-3)/Fever >100.5/CARIAS Albuterol 2.5 mg 03/13/20 17:21 Albuterol 2.5 Mg/3 Ml Nebu IH Q4HRT PRN Shortness Of Breath Alprazolam 0.5 mg 03/25/20 20:27 04/02/20 10:47 Alprazolam 0.5 Mg Tab PO 0.5 mg Q8H PRN Administration Anxiety Amitriptyline HCl 10 mg 03/25/20 22:00 04/03/20 22:12 Amitriptyline 10 Mg Tab PO 10 mg QHS SANDY Administration Ascorbic Acid 1,000 mg 03/26/20 10:00 04/04/20 09:29 Ascorbic Acid 500 Mg Tab PO 1,000 mg BID SANDY Administration Benzonatate 100 mg 03/13/20 22:00 04/04/20 14:26 Benzonatate 100 Mg Cap PO 100 mg Q8HR SANDY Administration Duloxetine HCl 60 mg 03/14/20 10:00 04/04/20 09:29 Duloxetine 30 Mg Cap PO 60 mg QDAY SANDY Administration Enoxaparin Sodium 40 mg 03/23/20 22:00 04/03/20 22:13 Enoxaparin 40 Mg/0.4 Ml Inj SUB-Q 40 mg QDAY@2200 SANDY Administration Protocol Ergocalciferol 50,000 unit 03/20/20 10:00 04/03/20 11:36 Ergocalciferol (Vit D2) 50,000 Unit Cap PO 50,000 unit [place] SANDY Administration Famotidine 10 mg 03/29/20 23:00 04/04/20 09:30 Famotidine 20 Mg Tab PO 10 mg BID SANDY Administration Gabapentin 300 mg 03/13/20 20:00 04/04/20 14:26 Gabapentin 300 Mg Cap PO 300 mg TID SANDY Administration Guaifenesin 10 ml 03/13/20 17:24 04/04/20 04:09 Guaifenesin Dm 200/20 Mg Oral Liqd 10 Ml PO 10 ml Q4H PRN Administration Cough Hydroxyzine Pamoate 50 mg 03/13/20 22:00 04/04/20 17:29 Hydroxyzine Pamoate 50 Mg Cap PO 50 mg QID SANDY Administration Lamotrigine 100 mg 03/14/20 10:00 04/04/20 09:29 Lamotrigine 100 Mg Tab PO 100 mg QDAY SANDY Administration [place] Carbonate 150 mg 03/13/20 22:00 04/04/20 09:29 [place] Carbonate 150 Mg Cap PO 150 mg BID SANDY Administration Metoprolol Tartrate 12.5 mg 03/31/20 22:00 04/04/20 09:33 Metoprolol Tartrate 25 Mg Tab PO 12.5 mg BID SANDY Administration Montelukast Sodium 10 mg 03/14/20 10:00 04/04/20 09:29 Montelukast 10 Mg Tab PO 10 mg DAILY SANDY Administration Ondansetron HCl 4 mg 03/13/20 17:21 04/04/20 09:43 Ondansetron 4 Mg/2 Ml Inj IV 4 mg Q8H PRN Administration Nausea And Vomiting Oxybutynin Chloride 5 mg 03/13/20 20:00 04/04/20 14:26 Oxybutynin 5 Mg Tab PO 5 mg TID SANDY Administration Oxycodone/Acetaminophen 1 tab 03/30/20 08:06 04/04/20 17:29 Oxycodone /Acetaminophen 5-325mg Tab PO 1 tab Q6H PRN Administration Pain, Moderate (4-6) Phenol 1 spray 03/25/20 20:05 03/26/20 00:27 Phenol 1.4% 177 Ml Bottle MM 1 spray PRN PRN Administration Sore Throat Potassium Chloride 40 meq 04/04/20 18:18 Potassium Chloride Er 20 Meq Tab PO 04/04/20 18:19 ONCE ONE Sodium Chloride 10 ml 03/13/20 22:00 04/04/20 09:31 Sodium Chloride 0.9% 10 Ml Flush Syringe IV 10 ml BID SANDY Administration Sodium Chloride 10 ml 03/13/20 17:21 Sodium Chloride 0.9% 10 Ml Flush Syringe IV PRN PRN LINE FLUSH Trazodone HCl 100 mg 03/13/20 22:00 04/03/20 22:11 Trazodone 100 Mg Tab PO 100 mg QHS SANYD Administration Zinc Sulfate 220 mg 03/26/20 10:00 04/04/20 09:30 Zinc Sulfate 220 Mg Cap PO 220 mg BID SANDY Administration Nutrition/Malnutrition Assess - Dietary Evaluation Nutrition/Malnutrition Findings: Nutrition Notes Start: 03/14/20 15:39 Freq: Status: Active Protocol: Document 03/29/20 13:55 LUIZ (Rec: 03/29/20 14:04 LUIZ [id number]) Nutrition Notes Initial or Follow up Reassessment Current Diagnosis COPD,Sepsis,Hypertension, Hyperlipidemia Other Pertinent Diagnosis Pneu, COVID-19 (+), GERD Current Diet Cardiac + Ensure Enlive TID Labs/Tests BG 243 Pertinent Medications Vit C, Lasix, Zinc sulfate, Solumedrol Height 5 ft 1 in Weight 63 kg [place] Body Weight (kg) 47.72 BMI 26.2 Weight Status Appropriate Subjective/Other Information Unable to reach pt via phone at 11:53 and 13:55. She has consumed 54% of meals since last assessment. Percent of energy/protein needs met: 84% energy 73% pro Burn Absent Trauma Absent Current % PO Fair (50-74%) Minimum of two criteria No #1 Nutrition Diagnosis Inadequate oral intake As Evidenced by Signs and Symptoms pt consuming at least 50% of meals Diagnosis Progress(for reassessment Improved documentation) Is patient on ventilator? No Is Patient Ambulatory and/or Out of Bed Yes REE-(Turney-St. Jeor-ambulatory/OOB) [ [id number] [id number]] Calculation Used for Recommendations Turney-St Jeor Additional Notes Pro needs 1-1.2g/k-76g/ day Fluid needs 1ml/kcal Nutrition Intervention Change Diet Order: Continue current diet order Add Supplement/Snack (indicate name/kcal Change to Glucerna BID (sec to /protein ) elevated BG) Provides kCal: 440 Provides Protein (gm) 20 Goal #1 PO intake of meals plus ONS to meet at least 75% energy and pro needs Follow-Up By: 04/05/20 Additional Comments F/U: intakes (meals/ONS), BG labs
[2020-04-04] MEDS: ENOXAPARIN 40 MG/0.4 ML INJ SUB-Q SCH (21:33)
[2020-04-04] MEDS: AMITRIPTYLINE 10 MG TAB PO SCH (21:35)
[2020-04-04] MEDS: traZODone 100 MG TAB PO SCH (21:36)
[2020-04-04] MEDS: ACETAMINOPHEN 325 MG TAB PO PRN (22:16)
[2020-04-05] MEDS: BENZONATATE 100 MG CAP PO SCH ×3 (05:18→21:37)
[2020-04-05] MEDS: lamoTRIgine 100 MG TAB PO SCH (09:58)
[2020-04-05] MEDS: MONTELUKAST 10 MG TAB PO SCH (09:58)
[2020-04-05] MEDS: METOPROLOL TARTRATE 25 MG TAB PO SCH ×2 (09:58→21:41)
[2020-04-05] MEDS: OXYBUTYNIN 5 MG TAB PO SCH ×3 (09:59→21:37)
[2020-04-05] MEDS: ZINC SULFATE 220 MG CAP PO SCH ×2 (09:59→21:37)
[2020-04-05] MEDS: FAMOTIDINE 20 MG TAB PO SCH ×2 (09:59→21:36)
[2020-04-05] MEDS: GABAPENTIN 300 MG CAP PO SCH ×3 (09:59→21:37)
[2020-04-05] MEDS: DULoxetine 30 MG CAP PO SCH (09:59)
[2020-04-05] MEDS: ASCORBIC ACID 500 MG TAB PO SCH ×2 (10:00→21:37)
[2020-04-05] MEDS: LITHIUM CARBONATE 150 MG CAP PO SCH ×2 (10:00→21:38)
[2020-04-05] MEDS: ONDANSETRON 4 MG/2 ML INJ IV PRN (10:10)
[2020-04-05] MEDS: oxyCODONE /ACETAMINOPHEN 5-325MG TAB PO PRN ×2 (10:10→18:44)
--- NOTE | 2020-04-05 10:47 | Progress Note ---
Assessment and Plan 64 y/o female with acute on chronic respiratory failure secondary COVID 19 pneumonia. 1. steroids are now off. 2. Hold on lasix today. 3. Prone as tolerated during the day and sleep prone at night. Patient has been noncompliant with this. Did not prone again last night. 4. Abx therapy per ID 5. Guarded prognosis given prolonged high levels of flow and oxygen requirements. Please ask CM if she could be a candidate for LTACH. Subjective Date of service: 04/05/20 Principal diagnosis: COVID/COPD Interval history: No acute events. Still requiring HFNC. Objective Vital Signs - 12hr 04/05/20 03:28 O2 Sat by Pulse 92 Oximetry Constitutional: alert, other (critically ill on HFNC) Eyes: non-icteric Neck: supple Effort: mildly labored Ascultation: Bilateral: clear, wheezes Cardiovascular: other (tachy, RR; no mrg) Gastrointestinal: normoactive bowel sounds, soft, non-tender Integumentary: normal Extremities: no cyanosis, no edema, pink and warm Neurologic: normal mental status, non-focal exam, CN II-XII normal Psychiatric: anxious, other (very fidgety) CBC and BMP: 03/30/20 05:09 04/04/20 17:15 ABG, PT/INR, D-dimer: PT/INR, D-dimer PT 11.8 Sec. (12.2-14.9) L 03/13/20 16:24 INR 0.89 (0.87-1.13) 03/13/20 16:24 D-Dimer 652.33 ng/mlDDU (0-234) H 04/02/20 05:32 Abnormal lab findings: Abnormal Labs 03/13/20 03/13/20 03/13/20 16:24 16:24 16:24 WBC MCH RDW 16.8 H Plt Count Lymph % (Auto) 8.5 L [place] % (Auto) Lymph # (Auto) 0.6 L [place] # (Auto) Seg Neutrophils % 84.9 H Seg Neuts % (Manual) Lymphocytes % (Manual) Seg Neutrophils # Seg Neutrophils # Man Lymphocytes # (Manual) Monocytes # (Manual) PT 11.8 L D-Dimer 234.66 H Sodium 135 L Potassium 3.1 L Chloride Carbon Dioxide BUN Glucose 174 H Ferritin Lactate Dehydrogenase 277 H C-Reactive Protein 8.00 H Albumin 3.7 L Ur Specific [place] Coronavirus (PCR) SARS-CoV-2 IgG Ab 03/13/20 03/14/20 03/14/20 16:24 08:02 08:02 WBC 3.9 L MCH RDW 16.3 H Plt Count Lymph % (Auto) [place] % (Auto) 9.5 H Lymph # (Auto) 0.7 L [place] # (Auto) Seg Neutrophils % 72.9 H Seg Neuts % (Manual) Lymphocytes % (Manual) Seg Neutrophils # Seg Neutrophils # Man Lymphocytes # (Manual) Monocytes # (Manual) PT D-Dimer Sodium Potassium Chloride 107.4 H Carbon Dioxide BUN Glucose 174 H 142 H Ferritin Lactate Dehydrogenase 267 H C-Reactive Protein 8.10 H Albumin Ur Specific [place] Coronavirus (PCR) SARS-CoV-2 IgG Ab 03/14/20 03/14/20 03/14/20 16:58 16:58 Unknown WBC MCH RDW Plt Count Lymph % (Auto) [place] % (Auto) Lymph # (Auto) [place] # (Auto) Seg Neutrophils % Seg Neuts % (Manual) Lymphocytes % (Manual) Seg Neutrophils # Seg Neutrophils # Man Lymphocytes # (Manual) Monocytes # (Manual) PT D-Dimer Sodium Potassium Chloride Carbon Dioxide BUN Glucose Ferritin Lactate Dehydrogenase 277 H C-Reactive Protein 2.60 H Albumin Ur Specific [place] Coronavirus (PCR) Positive A SARS-CoV-2 IgG Ab Reactive A 03/16/20 03/16/20 03/16/20 05:18 05:18 10:34 WBC MCH RDW 16.4 H Plt Count Lymph % (Auto) [place] % (Auto) 10.0 H Lymph # (Auto) [place] # (Auto) Seg Neutrophils % Seg Neuts % (Manual) Lymphocytes % (Manual) Seg Neutrophils # Seg Neutrophils # Man Lymphocytes # (Manual) Monocytes # (Manual) PT D-Dimer 278.32 H Sodium Potassium 3.1 L Chloride Carbon Dioxide BUN Glucose Ferritin Lactate Dehydrogenase C-Reactive Protein Albumin 3.4 L Ur Specific [place] Coronavirus (PCR) SARS-CoV-2 IgG Ab 03/16/20 03/17/20 03/18/20 10:34 21:24 05:58 WBC 14.8 H MCH RDW 15.8 H Plt Count Lymph % (Auto) 11.5 L [place] % (Auto) Lymph # (Auto) [place] # (Auto) 1.0 H Seg Neutrophils % 81.3 H Seg Neuts % (Manual) Lymphocytes % (Manual) Seg Neutrophils # 12.0 H Seg Neutrophils # Man Lymphocytes # (Manual) Monocytes # (Manual) PT D-Dimer Sodium Potassium Chloride Carbon Dioxide BUN Glucose 182 H Ferritin Lactate Dehydrogenase 268 H 268 H C-Reactive Protein 2.10 H 4.90 H Albumin Ur Specific [place] Coronavirus (PCR) SARS-CoV-2 IgG Ab 03/18/20 03/21/20 03/21/20 05:58 05:27 05:27 WBC 14.1 H MCH 27 L RDW 16.1 H Plt Count 513 H Lymph % (Auto) 11.5 L [place] % (Auto) 7.9 H Lymph # (Auto) [place] # (Auto) 1.1 H Seg Neutrophils % 78.4 H Seg Neuts % (Manual) Lymphocytes % (Manual) Seg Neutrophils # 11.1 H Seg Neutrophils # Man Lymphocytes # (Manual) Monocytes # (Manual) PT D-Dimer Sodium Potassium 2.9 L* Chloride Carbon Dioxide 18 L BUN Glucose Ferritin Lactate Dehydrogenase C-Reactive Protein Albumin 3.6 L 3.6 L Ur Specific [place] Coronavirus (PCR) SARS-CoV-2 IgG Ab 03/22/20 03/22/20 03/22/20 15:45 15:45 15:45 WBC MCH RDW Plt Count Lymph % (Auto) [place] % (Auto) Lymph # (Auto) [place] # (Auto) Seg Neutrophils % Seg Neuts % (Manual) Lymphocytes % (Manual) Seg Neutrophils # Seg Neutrophils # Man Lymphocytes # (Manual) Monocytes # (Manual) PT D-Dimer 274.02 H Sodium Potassium Chloride Carbon Dioxide BUN Glucose Ferritin Lactate Dehydrogenase 259 H C-Reactive Protein 7.60 H Albumin Ur Specific [place] Coronavirus (PCR) SARS-CoV-2 IgG Ab 03/26/20 03/26/20 03/27/20 05:45 05:45 08:21 WBC 34.9 H MCH RDW 15.9 H Plt Count 579 H Lymph % (Auto) [place] % (Auto) Lymph # (Auto) [place] # (Auto) Seg Neutrophils % Seg Neuts % (Manual) Lymphocytes % (Manual) Seg Neutrophils # Seg Neutrophils # Man Lymphocytes # (Manual) Monocytes # (Manual) PT D-Dimer Sodium 130 L 130 L Potassium Chloride 86.0 L 88.5 L Carbon Dioxide 35 H BUN 22 H Glucose 227 H 326 H Ferritin Lactate Dehydrogenase 213 H C-Reactive Protein 34.50 H Albumin Ur Specific [place] Coronavirus (PCR) SARS-CoV-2 IgG Ab 03/27/20 03/27/20 03/27/20 08:21 18:45 18:45 WBC 42.1 H* MCH RDW 16.3 H Plt Count Lymph % (Auto) [place] % (Auto) Lymph # (Auto) [place] # (Auto) Seg Neutrophils % Seg Neuts % (Manual) 91.0 H Lymphocytes % (Manual) 2.0 L Seg Neutrophils # Seg Neutrophils # Man 38.3 H Lymphocytes # (Manual) 0.8 L Monocytes # (Manual) 1.7 H PT D-Dimer Sodium Potassium Chloride Carbon Dioxide BUN Glucose Ferritin 400.5 H Lactate Dehydrogenase C-Reactive Protein 49.70 H Albumin Ur Specific [place] Coronavirus (PCR) SARS-CoV-2 IgG Ab 03/28/20 03/28/20 03/28/20 07:51 07:51 07:51 WBC 32.2 H MCH 27 L RDW 16.3 H Plt Count Lymph % (Auto) [place] % (Auto) Lymph # (Auto) [place] # (Auto) Seg Neutrophils % Seg Neuts % (Manual) 86.0 H Lymphocytes % (Manual) 10.0 L Seg Neutrophils # Seg Neutrophils # Man 27.7 H Lymphocytes # (Manual) Monocytes # (Manual) 1.3 H PT D-Dimer 1182.25 H Sodium Potassium Chloride Carbon Dioxide BUN Glucose Ferritin 514.4 H Lactate Dehydrogenase C-Reactive Protein Albumin Ur Specific [place] Coronavirus (PCR) SARS-CoV-2 IgG Ab 03/28/20 03/28/20 03/29/20 07:51 17:48 05:07 WBC MCH RDW Plt Count Lymph % (Auto) [place] % (Auto) Lymph # (Auto) [place] # (Auto) Seg Neutrophils % Seg Neuts % (Manual) Lymphocytes % (Manual) Seg Neutrophils # Seg Neutrophils # Man Lymphocytes # (Manual) Monocytes # (Manual) PT D-Dimer Sodium 136 L Potassium Chloride 93.0 L Carbon Dioxide 35 H BUN Glucose 243 H Ferritin Lactate Dehydrogenase 218 H C-Reactive Protein 18.00 H Albumin Ur Specific [place] 1.036 H Coronavirus (PCR) SARS-CoV-2 IgG Ab 03/29/20 03/29/20 03/30/20 05:07 14:39 05:09 WBC 22.0 H 11.4 H MCH 27 L 27 L RDW 16.0 H 16.1 H Plt Count Lymph % (Auto) [place] % (Auto) Lymph # (Auto) [place] # (Auto) Seg Neutrophils % Seg Neuts % (Manual) Lymphocytes % (Manual) Seg Neutrophils # Seg Neutrophils # Man Lymphocytes # (Manual) Monocytes # (Manual) PT D-Dimer Sodium 131 L Potassium Chloride 91.7 L Carbon Dioxide 31 H BUN Glucose 328 H Ferritin Lactate Dehydrogenase C-Reactive Protein Albumin Ur Specific [place] Coronavirus (PCR) SARS-CoV-2 IgG Ab 03/30/20 03/31/20 03/31/20 05:09 05:43 05:43 WBC MCH RDW Plt Count Lymph % (Auto) [place] % (Auto) Lymph # (Auto) [place] # (Auto) Seg Neutrophils % Seg Neuts % (Manual) Lymphocytes % (Manual) Seg Neutrophils # Seg Neutrophils # Man Lymphocytes # (Manual) Monocytes # (Manual) PT D-Dimer 734.03 H Sodium 136 L Potassium Chloride 96.2 L Carbon Dioxide BUN Glucose 297 H Ferritin 404.1 H Lactate Dehydrogenase C-Reactive Protein Albumin Ur Specific [place] Coronavirus (PCR) SARS-CoV-2 IgG Ab 03/31/20 04/02/20 04/02/20 05:43 05:32 05:32 WBC MCH RDW Plt Count Lymph % (Auto) [place] % (Auto) Lymph # (Auto) [place] # (Auto) Seg Neutrophils % Seg Neuts % (Manual) Lymphocytes % (Manual) Seg Neutrophils # Seg Neutrophils # Man Lymphocytes # (Manual) Monocytes # (Manual) PT D-Dimer 652.33 H Sodium Potassium Chloride Carbon Dioxide BUN Glucose Ferritin Lactate Dehydrogenase C-Reactive Protein 3.10 H 2.50 H Albumin Ur Specific [place] Coronavirus (PCR) SARS-CoV-2 IgG Ab 04/04/20 17:15 WBC MCH RDW Plt Count Lymph % (Auto) [place] % (Auto) Lymph # (Auto) [place] # (Auto) Seg Neutrophils % Seg Neuts % (Manual) Lymphocytes % (Manual) Seg Neutrophils # Seg Neutrophils # Man Lymphocytes # (Manual) Monocytes # (Manual) PT D-Dimer Sodium 130 L Potassium 3.0 L Chloride 90.6 L Carbon Dioxide 32 H BUN Glucose 135 H Ferritin Lactate Dehydrogenase C-Reactive Protein Albumin Ur Specific [place] Coronavirus (PCR) SARS-CoV-2 IgG Ab
--- NOTE | 2020-04-05 13:05 | Progress Note ---
Assessment and Plan Assessment and plan: Patient remains on high flow oxygen 15 L nasal cannula Ventimask Wean as tolerated, still severe prolonged hypoxia High risk for mortality, closely monitor Pulmonary critical following --Sepsis; due to COVID-19 infection Current Visit: Yes Status: Acute Plan to address problem: tachypnea, tachycardia, febrile at 102, acute respiratory failure with hypoxia and chest x-ray bilateral patchy infiltrate left greater than right. Patient positive for COVID-19 Infectious disease following S/p empiric antibiotic therapy 03/13 blood cultures x2 no growth after 5 days -- Pneumonia due to COVID-19 virus Current Visit: Yes Status: Acute Plan to address problem: 03/14/20 COVID-19 PCR positive 03/14 Covid 19 antibody positive, not a candidate for convalescent plasma Chest x-ray showed bilateral patchy infiltrate left greater than right. S/p cefepime S/p remdesivir and Decadron Patient now on Solu-Medrol per pulmonology Trend inflammatory markers for wrist education Droplet/contact isolation Supplemental oxygen as needed Anticoagulation per protocol Pulmonary hygiene Continue SPO2 monitoring Prone to sleep as tolerated -- Acute hypoxemic respiratory failure Current Visit: Yes Status: Acute Plan to address problem: Oxygen titrate O2 sats to more than 90% Follow cultures, supportive care -- Leukocytosis Current Visit: Yes Status: Acute Plan to address problem: Worsening leukocytosis, Secondary to sepsis, partly due to steroid use Continue current antibiotics, follow cultures, Taper steroid dose ID recommend CT abdomen and pelvis if leukocytosis does not improve Continue supportive care -- Hyponatremia Current Visit: Yes Status: Acute Plan to address problem: Significantly improved Continue current management Monitor electrolytes -- Elevated d-dimer Current Visit: Yes Status: Acute Plan to address problem: Elevated D-dimer 1182 Anticoagulation per protocol Unable to get VQ scan or CTA chest bilateral lower extremity Doppler negative for DVT -- Hypertension moderate control Current Visit: Yes Status: Chronic Plan to address problem: Continue current antihypertensives As needed medications --Hyperlipidemia Current Visit: Yes Status: Chronic Plan to address problem: Continue home statin, low-cholesterol diet -- GERD (gastroesophageal reflux disease) Current Visit: Yes Status: Chronic Plan to address problem: Continue home PPI --History of COPD (chronic obstructive pulmonary disease) Current Visit: Yes Status: Chronic Plan to address problem: Oxygen titrate O2 sats to more than 90% Nebulizers, steroids Pulmonary following, optimize medications --DVT prophylaxis Current Visit: Yes Status: Acute Plan to address problem: Subcu Lovenox/SCDs Full CODE STATUS Patient is critically ill Requiring high flow oxygen 15 L nasal cannula Poor prognosis, consults and recommendations noted and appreciated Plan of care reviewed with the patient and her nurse 05/22/19: On High flow oxygen 03/22/2020: Patient on high flow oxygen from 40 L Patient does not keep her oxygen consistently as the nursing staff and respiratory therapist to decrease oxygen levels 03/23/2020:Patient still on high flow oxygen, Alert and oriented and cheerful 03/24/20: Patient is on high flow nasal cannula 03/25: remains on high flow O2 03/26: remain on 40L high flow O2, cont supportive care 03/27: Remains on high flow O2, continue to wean off O2 as tolerated. Continue to provide supportive care and monitor closely 03/31/2020; on high flow oxygen 25/96%/O2 sats 98%, patient remains hypoxic, continue current management 04/02/2020; on high flow oxygen 12 L 96%, slightly improved we will closely monitor 04/05/2020; remains on high flow ,Ventimask high flow oxygen 15 L/90%/O2 sat 93% patient is severely hypoxemic Very poor prognosis History Interval history: I have seen and examined the patient at the bedside Patient's chart and medications reviewed Patient remains on continuous high flow oxygen In mild distress Vital signs reviewed Hospitalist Physical - Constitutional Vitals: Temp Pulse Resp BP Pulse Ox 97.1 F L 123 H 20 115/43 93 04/05/20 10:46 04/05/20 10:46 04/05/20 10:46 04/05/20 10:46 04/05/20 11:05 General appearance: Present: mild distress, well-nourished, other (Continues with 15 l of nasal cannula oxygen, in mild distress) - EENT Eyes: Present: PERRL, EOM intact - Neck Neck: Present: supple, normal ROM - Respiratory Respiratory effort: normal Respiratory: bilateral: diminished, rhonchi, negative: rales - Cardiovascular Rhythm: regular Heart Sounds: Present: S1 & S2 - Extremities Extremities: no ischemia, No edema - Abdominal General gastrointestinal: soft, non-tender, non-distended, normal bowel sounds - Integumentary Integumentary: Present: clear, warm - Psychiatric Psychiatric: appropriate mood/affect, cooperative - Neurologic Neurologic: moves all extremities HEART Score - HEART Score Troponin: Troponin T < 0.010 ng/mL (0.00-0.029) 03/13/20 16:24 Results - Labs CBC & Chem 7: 03/30/20 05:09 04/04/20 17:15 Labs: Laboratory Last Values WBC 11.4 K/mm3 (4.5-11.0) H 03/30/20 05:09 RBC 4.04 M/mm3 (3.65-5.03) 03/30/20 05:09 Hgb 11.0 gm/dl (10.1-14.3) 03/30/20 05:09 Hct 33.6 % (30.3-42.9) 03/30/20 05:09 MCV 83 fl (79-97) 03/30/20 05:09 MCH 27 pg (28-32) L 03/30/20 05:09 MCHC 33 % (30-34) 03/30/20 05:09 RDW 16.1 % (13.2-15.2) H 03/30/20 05:09 Plt Count 309 K/mm3 (140-440) 03/30/20 05:09 Lymph % (Auto) 11.5 % (13.4-35.0) L 03/21/20 05:27 [place] % (Auto) 7.9 % (0.0-7.3) H 03/21/20 05:27 Eos % (Auto) 2.0 % (0.0-4.3) 03/21/20 05:27 Baso % (Auto) 0.2 % (0.0-1.8) 03/21/20 05:27 Lymph # (Auto) 1.6 K/mm3 (1.2-5.4) 03/21/20 05:27 [place] # (Auto) 1.1 K/mm3 (0.0-0.8) H 03/21/20 05:27 Eos # (Auto) 0.3 K/mm3 (0.0-0.4) 03/21/20 05:27 Baso # (Auto) 0.0 K/mm3 (0.0-0.1) 03/21/20 05:27 Add Manual Diff Complete 03/28/20 07:51 Total Counted 100 03/28/20 07:51 Seg Neutrophils % 78.4 % (40.0-70.0) H 03/21/20 05:27 Seg Neuts % (Manual) 86.0 % (40.0-70.0) H 03/28/20 07:51 Band Neutrophils % 3.0 % 03/27/20 08:21 Lymphocytes % (Manual) 10.0 % (13.4-35.0) L 03/28/20 07:51 Monocytes % (Manual) 4.0 % (0.0-7.3) 03/28/20 07:51 Nucleated RBC % Not Reportable 03/28/20 07:51 Seg Neutrophils # 11.1 K/mm3 (1.8-7.7) H 03/21/20 05:27 Seg Neutrophils # Man 27.7 K/mm3 (1.8-7.7) H 03/28/20 07:51 Band Neutrophils # 0.0 K/mm3 03/28/20 07:51 Lymphocytes # (Manual) 3.2 K/mm3 (1.2-5.4) 03/28/20 07:51 Abs React Lymphs (Man) 0.0 K/mm3 03/28/20 07:51 Monocytes # (Manual) 1.3 K/mm3 (0.0-0.8) H 03/28/20 07:51 Eosinophils # (Manual) 0.0 K/mm3 (0.0-0.4) 03/28/20 07:51 Basophils # (Manual) 0.0 K/mm3 (0.0-0.1) 03/28/20 07:51 Metamyelocytes # 0.0 K/mm3 03/28/20 07:51 Myelocytes # 0.0 K/mm3 03/28/20 07:51 Promyelocytes # 0.0 K/mm3 03/28/20 07:51 Blast Cells # 0.0 K/mm3 03/28/20 07:51 WBC Morphology Not Reportable 03/28/20 07:51 Hypersegmented Neuts Not Reportable 03/28/20 07:51 Hyposegmented Neuts Not Reportable 03/28/20 07:51 Hypogranular Neuts Not Reportable 03/28/20 07:51 Smudge Cells Not Reportable 03/28/20 07:51 Toxic Granulation Not Reportable 03/28/20 07:51 Toxic Vacuolation Few 03/28/20 07:51 Dohle Bodies Not Reportable 03/28/20 07:51 Pelger-Huet Anomaly Not Reportable 03/28/20 07:51 Natan Rods Not Reportable 03/28/20 07:51 Platelet Estimate Consistent w auto 03/28/20 07:51 Clumped Platelets Not Reportable 03/28/20 07:51 Plt Clumps, EDTA Not Reportable 03/28/20 07:51 Large Platelets Few 03/28/20 07:51 Giant Platelets Not Reportable 03/28/20 07:51 Platelet Satelliting Not Reportable 03/28/20 07:51 Plt Morphology Comment Not Reportable 03/28/20 07:51 RBC Morphology Normal 03/28/20 07:51 Dimorphic RBCs Not Reportable 03/28/20 07:51 Polychromasia Not Reportable 03/28/20 07:51 Hypochromasia Not Reportable 03/28/20 07:51 Poikilocytosis Not Reportable 03/28/20 07:51 Anisocytosis Not Reportable 03/28/20 07:51 Microcytosis Not Reportable 03/28/20 07:51 Macrocytosis Not Reportable 03/28/20 07:51 Spherocytes Not Reportable 03/28/20 07:51 Pappenheimer Bodies Not Reportable 03/28/20 07:51 Sickle Cells Not Reportable 03/28/20 07:51 Target Cells Not Reportable 03/28/20 07:51 Tear Drop Cells Not Reportable 03/28/20 07:51 Ovalocytes Not Reportable 03/28/20 07:51 Helmet Cells Not Reportable 03/28/20 07:51 [place] Bodies Not Reportable 03/28/20 07:51 [place] Rings Not Reportable 03/28/20 07:51 Alexia Cells Not Reportable 03/28/20 07:51 Bite Cells Not Reportable 03/28/20 07:51 Crenated Cell Not Reportable 03/28/20 07:51 Elliptocytes Not Reportable 03/28/20 07:51 Acanthocytes (Spur) Not Reportable 03/28/20 07:51 Rouleaux Not Reportable 03/28/20 07:51 Hemoglobin C Crystals Not Reportable 03/28/20 07:51 Schistocytes Not Reportable 03/28/20 07:51 Malaria parasites Not Reportable 03/28/20 07:51 [place] Bodies Not Reportable 03/28/20 07:51 Hem Pathologist Commnt No 03/28/20 07:51 PT 11.8 Sec. (12.2-14.9) L 03/13/20 16:24 INR 0.89 (0.87-1.13) 03/13/20 16:24 D-Dimer 652.33 ng/mlDDU (0-234) H 04/02/20 05:32 Sodium 130 mmol/L (137-145) L 04/04/20 17:15 Potassium 3.0 mmol/L (3.6-5.0) L 04/04/20 17:15 Chloride 90.6 mmol/L (98-107) L 04/04/20 17:15 Carbon Dioxide 32 mmol/L (22-30) H 04/04/20 17:15 Anion Gap 10 mmol/L 04/04/20 17:15 BUN 11 mg/dL (7-17) 04/04/20 17:15 Creatinine 0.7 mg/dL (0.6-1.2) 04/04/20 17:15 Estimated GFR > 60 ml/min 04/04/20 17:15 BUN/Creatinine Ratio 16 % 04/04/20 17:15 Glucose 135 mg/dL (65-100) H 04/04/20 17:15 Lactic Acid 1.70 mmol/L (0.7-2.0) 03/13/20 16:24 Calcium 9.5 mg/dL (8.4-10.2) 04/04/20 17:15 Magnesium 1.80 mg/dL (1.7-2.3) 03/13/20 16:24 Total Bilirubin 0.30 mg/dL (0.1-1.2) 03/21/20 05:27 Ferritin 183.1 ng/mL (10.0-200.0) 04/02/20 05:32 Direct Bilirubin < 0.2 mg/dL (0-0.2) 03/16/20 05:18 Indirect Bilirubin 0.1 mg/dL 03/16/20 05:18 AST 12 units/L (5-40) 03/21/20 05:27 ALT 8 units/L (7-56) 03/21/20 05:27 Alkaline Phosphatase 72 units/L (35-129) 03/21/20 05:27 Lactate Dehydrogenase 218 units/L (91-180) H 03/29/20 05:07 Total Creatine Kinase 42 units/L (30-135) 03/13/20 16:24 Troponin T < 0.010 ng/mL (0.00-0.029) 03/13/20 16:24 C-Reactive Protein 2.50 mg/dL (0.00-1.30) H 04/02/20 05:32 NT-Pro-B Natriuret Pep 220.0 pg/mL (0-900) 03/25/20 15:14 Total Protein 7.3 g/dL (6.3-8.2) 03/21/20 05:27 Albumin 3.6 g/dL (3.9-5) L 03/21/20 05:27 Albumin/Globulin Ratio 1.0 % 03/21/20 05:27 Procalcitonin 1.16 ng/mL (<0.15) 03/27/20 18:45 Urine Color Yellow (Yellow) 03/28/20 17:48 Urine Turbidity Clear (Clear) 03/28/20 17:48 Urine pH 6.0 (5.0-7.0) 03/28/20 17:48 Ur Specific [place] 1.036 (1.003-1.030) H 03/28/20 17:48 Urine Protein 30 mg/dl mg/dL (Negative) 03/28/20 17:48 Urine Glucose (UA) >=500 mg/dL (Negative) 03/28/20 17:48 Urine Ketones Tr mg/dL (Negative) 03/28/20 17:48 Urine Blood Neg (Negative) 03/28/20 17:48 Urine Nitrite Neg (Negative) 03/28/20 17:48 Urine Bilirubin Neg (Negative) 03/28/20 17:48 Urine Urobilinogen < 2.0 mg/dL (<2.0) 03/28/20 17:48 Ur Leukocyte Esterase Tr (Negative) 03/28/20 17:48 Urine WBC (Auto) 5.0 /HPF (0.0-6.0) 03/28/20 17:48 Urine RBC (Auto) 2.0 /HPF (0.0-6.0) 03/28/20 17:48 U Epithel Cells (Auto) 2.0 /HPF (0-13.0) 03/28/20 17:48 Urine Mucus Few /HPF 03/28/20 17:48 Vancomycin Trough 5.7 ug/mL (5.0-20.0) 03/28/20 21:20 Coronavirus (PCR) Positive (Negative) A 03/14/20 Unknown SARS-CoV-2 IgG Ab Reactive (NonReactive) A 03/14/20 16:58 [place]ore[place]en/IV: Voiding Method Bedside Commode IV Catheter Type [Left Forearm Peripheral IV ] IV Catheter Type [Right INT / Saline Lock Forearm] IV Catheter Type [Right Wrist] INT / Saline Lock IV Catheter Type [Right Hand] INT / Saline Lock IV Catheter Type [Left Upper INT / Saline Lock arm] IV Catheter Type [Left Peripheral IV Antecubital] Active Medications - Current Medications Current Medications: Generic Name Dose Route Start Last Admin Trade Name Freq PRN Reason Stop Dose Admin Acetaminophen 650 mg 03/13/20 17:21 04/04/20 22:16 Acetaminophen 325 Mg Tab PO 650 mg Q4H PRN Administration Pain MILD(1-3)/Fever >100.5/CARIAS Albuterol 2.5 mg 03/13/20 17:21 Albuterol 2.5 Mg/3 Ml Nebu IH Q4HRT PRN Shortness Of Breath Alprazolam 0.5 mg 03/25/20 20:27 04/02/20 10:47 Alprazolam 0.5 Mg Tab PO 0.5 mg Q8H PRN Administration Anxiety Amitriptyline HCl 10 mg 03/25/20 22:00 04/04/20 21:35 Amitriptyline 10 Mg Tab PO 10 mg QHS SANDY Administration Ascorbic Acid 1,000 mg 03/26/20 10:00 04/05/20 10:00 Ascorbic Acid 500 Mg Tab PO 1,000 mg BID SANDY Administration Benzonatate 100 mg 03/13/20 22:00 04/05/20 05:18 Benzonatate 100 Mg Cap PO 100 mg Q8HR SANDY Administration Duloxetine HCl 60 mg 03/14/20 10:00 04/05/20 09:59 Duloxetine 30 Mg Cap PO 60 mg QDAY SANDY Administration Enoxaparin Sodium 40 mg 03/23/20 22:00 04/04/20 21:33 Enoxaparin 40 Mg/0.4 Ml Inj SUB-Q 40 mg QDAY@2200 SANDY Administration Protocol Ergocalciferol 50,000 unit 03/20/20 10:00 04/03/20 11:36 Ergocalciferol (Vit D2) 50,000 Unit Cap PO 50,000 unit [place] SANDY Administration Famotidine 10 mg 03/29/20 23:00 04/05/20 09:59 Famotidine 20 Mg Tab PO 10 mg BID SANDY Administration Gabapentin 300 mg 03/13/20 20:00 04/05/20 09:59 Gabapentin 300 Mg Cap PO 300 mg TID SANDY Administration Guaifenesin 10 ml 03/13/20 17:24 04/04/20 04:09 Guaifenesin Dm 200/20 Mg Oral Liqd 10 Ml PO 10 ml Q4H PRN Administration Cough Hydroxyzine Pamoate 50 mg 03/13/20 22:00 04/05/20 09:58 Hydroxyzine Pamoate 50 Mg Cap PO 50 mg QID SANDY Administration Lamotrigine 100 mg 03/14/20 10:00 04/05/20 09:58 Lamotrigine 100 Mg Tab PO 100 mg QDAY SANDY Administration [place] Carbonate 150 mg 03/13/20 22:00 04/05/20 10:00 [place] Carbonate 150 Mg Cap PO 150 mg BID SANDY Administration Metoprolol Tartrate 12.5 mg 03/31/20 22:00 04/05/20 09:58 Metoprolol Tartrate 25 Mg Tab PO 12.5 mg BID SANDY Administration Montelukast Sodium 10 mg 03/14/20 10:00 04/05/20 09:58 Montelukast 10 Mg Tab PO 10 mg DAILY SANDY Administration Ondansetron HCl 4 mg 03/13/20 17:21 04/05/20 10:10 Ondansetron 4 Mg/2 Ml Inj IV 4 mg Q8H PRN Administration Nausea And Vomiting Oxybutynin Chloride 5 mg 03/13/20 20:00 04/05/20 09:59 Oxybutynin 5 Mg Tab PO 5 mg TID SANDY Administration Oxycodone/Acetaminophen 1 tab 03/30/20 08:06 04/05/20 10:10 Oxycodone /Acetaminophen 5-325mg Tab PO 1 tab Q6H PRN Administration Pain, Moderate (4-6) Phenol 1 spray 03/25/20 20:05 03/26/20 00:27 Phenol 1.4% 177 Ml Bottle MM 1 spray PRN PRN Administration Sore Throat Sodium Chloride 10 ml 03/13/20 22:00 04/05/20 10:00 Sodium Chloride 0.9% 10 Ml Flush Syringe IV 10 ml BID SANDY Administration Sodium Chloride 10 ml 03/13/20 17:21 Sodium Chloride 0.9% 10 Ml Flush Syringe IV PRN PRN LINE FLUSH Trazodone HCl 100 mg 03/13/20 22:00 04/04/20 21:36 Trazodone 100 Mg Tab PO 100 mg QHS SANDY Administration Zinc Sulfate 220 mg 03/26/20 10:00 04/05/20 09:59 Zinc Sulfate 220 Mg Cap PO 220 mg BID SANDY Administration Nutrition/Malnutrition Assess - Dietary Evaluation Nutrition/Malnutrition Findings: Nutrition Notes Start: 03/14/20 15:39 Freq: Status: Active Protocol: Document 03/29/20 13:55 [facility] (Rec: 03/29/20 14:04 [facility] [id number]) Nutrition Notes Initial or Follow up Reassessment Current Diagnosis COPD,Sepsis,Hypertension, Hyperlipidemia Other Pertinent Diagnosis Pneu, COVID-19 (+), GERD Current Diet Cardiac + Ensure Enlive TID Labs/Tests BG 243 Pertinent Medications Vit C, Lasix, Zinc sulfate, Solumedrol Height 5 ft 1 in Weight 63 kg [place] Body Weight (kg) 47.72 BMI 26.2 Weight Status Appropriate Subjective/Other Information Unable to reach pt via phone at 11:53 and 13:55. She has consumed 54% of meals since last assessment. Percent of energy/protein needs met: 84% energy 73% pro Burn Absent Trauma Absent Current % PO Fair (50-74%) Minimum of two criteria No #1 Nutrition Diagnosis Inadequate oral intake As Evidenced by Signs and Symptoms pt consuming at least 50% of meals Diagnosis Progress(for reassessment Improved documentation) Is patient on ventilator? No Is Patient Ambulatory and/or Out of Bed Yes REE-([place]-St. Jeor-ambulatory/OOB) [ [id number] [id number]] Calculation Used for Recommendations [place]-St Jeor Additional Notes Pro needs 1-1.2g/k-76g/ day Fluid needs 1ml/kcal Nutrition Intervention Change Diet Order: Continue current diet order Add Supplement/Snack (indicate name/kcal Change to Glucerna BID (sec to /protein ) elevated BG) Provides kCal: 440 Provides Protein (gm) 20 Goal #1 PO intake of meals plus ONS to meet at least 75% energy and pro needs Follow-Up By: 04/05/20 Additional Comments F/U: intakes (meals/ONS), BG labs
[2020-04-05] MEDS: ENOXAPARIN 40 MG/0.4 ML INJ SUB-Q SCH (21:36)
[2020-04-05] MEDS: AMITRIPTYLINE 10 MG TAB PO SCH (21:36)
[2020-04-05] MEDS: traZODone 100 MG TAB PO SCH (21:37)
[2020-04-06] MEDS: oxyCODONE /ACETAMINOPHEN 5-325MG TAB PO PRN ×3 (05:15→23:20)
[2020-04-06] MEDS: BENZONATATE 100 MG CAP PO SCH ×3 (05:16→21:40)
[2020-04-06] MEDS: LITHIUM CARBONATE 150 MG CAP PO SCH ×2 (09:34→21:41)
[2020-04-06] MEDS: METOPROLOL TARTRATE 25 MG TAB PO SCH ×2 (09:34→21:42)
[2020-04-06] MEDS: lamoTRIgine 100 MG TAB PO SCH (09:34)
[2020-04-06] MEDS: ZINC SULFATE 220 MG CAP PO SCH ×2 (09:34→21:41)
[2020-04-06] MEDS: ASCORBIC ACID 500 MG TAB PO SCH ×2 (09:34→21:41)
[2020-04-06] MEDS: MONTELUKAST 10 MG TAB PO SCH (09:34)
[2020-04-06] MEDS: GABAPENTIN 300 MG CAP PO SCH ×3 (09:35→21:41)
[2020-04-06] MEDS: OXYBUTYNIN 5 MG TAB PO SCH ×3 (09:35→21:41)
[2020-04-06] MEDS: FAMOTIDINE 20 MG TAB PO SCH ×2 (09:35→21:41)
[2020-04-06] MEDS: DULoxetine 30 MG CAP PO SCH (09:35)
--- NOTE | 2020-04-06 09:45 | Progress Note ---
Assessment and Plan 64 y/o female with acute on chronic respiratory failure secondary COVID 19 pneumonia. 1. steroids are now off. 2. Ordered nasal saline to help with moisture and nose bleeds secondary to prolonged high flow. 3. Prone as tolerated during the day and sleep prone at night. Patient has been noncompliant with this. Did not prone again last night. 4. Guarded prognosis given prolonged high levels of flow and oxygen requirements. Please ask CM if she could be a candidate for LTACH. Subjective Date of service: 04/06/20 Principal diagnosis: COVID/COPD Interval history: Patient having nose bleeds yesterday so was placed on venti mask briefly. Back on 10 liters now with last sat documented at 95%. Objective Vital Signs - 12hr 04/05/20 04/05/20 04/06/20 22:14 22:23 02:00 Temperature 97.4 F L 97.9 F Pulse Rate 120 H 87 Respiratory 18 18 Rate Blood Pressure 82/46 89/56 O2 Sat by Pulse 86 100 96 Oximetry 04/06/20 04:06 Temperature 97.9 F Pulse Rate 118 H Respiratory 18 Rate Blood Pressure 98/54 O2 Sat by Pulse 83 L Oximetry Constitutional: alert, other (critically ill on HFNC) Eyes: non-icteric Neck: supple Effort: mildly labored Ascultation: Bilateral: clear, wheezes Cardiovascular: other (tachy, RR; no mrg) Gastrointestinal: normoactive bowel sounds, soft, non-tender Integumentary: normal Extremities: no cyanosis, no edema, pink and warm Neurologic: normal mental status, non-focal exam, CN II-XII normal Psychiatric: anxious, other (very fidgety) CBC and BMP: 03/30/20 05:09 04/04/20 17:15 ABG, PT/INR, D-dimer: PT/INR, D-dimer PT 11.8 Sec. (12.2-14.9) L 03/13/20 16:24 INR 0.89 (0.87-1.13) 03/13/20 16:24 D-Dimer 652.33 ng/mlDDU (0-234) H 04/02/20 05:32 Abnormal lab findings: Abnormal Labs 03/13/20 03/13/20 03/13/20 16:24 16:24 16:24 WBC MCH RDW 16.8 H Plt Count Lymph % (Auto) 8.5 L Wilson % (Auto) Lymph # (Auto) 0.6 L Wilson # (Auto) Seg Neutrophils % 84.9 H Seg Neuts % (Manual) Lymphocytes % (Manual) Seg Neutrophils # Seg Neutrophils # Man Lymphocytes # (Manual) Monocytes # (Manual) PT 11.8 L D-Dimer 234.66 H Sodium 135 L Potassium 3.1 L Chloride Carbon Dioxide BUN Glucose 174 H Ferritin Lactate Dehydrogenase 277 H C-Reactive Protein 8.00 H Albumin 3.7 L Ur Specific [place] Coronavirus (PCR) SARS-CoV-2 IgG Ab 03/13/20 03/14/20 03/14/20 16:24 08:02 08:02 WBC 3.9 L MCH RDW 16.3 H Plt Count Lymph % (Auto) Wilson % (Auto) 9.5 H Lymph # (Auto) 0.7 L Wilson # (Auto) Seg Neutrophils % 72.9 H Seg Neuts % (Manual) Lymphocytes % (Manual) Seg Neutrophils # Seg Neutrophils # Man Lymphocytes # (Manual) Monocytes # (Manual) PT D-Dimer Sodium Potassium Chloride 107.4 H Carbon Dioxide BUN Glucose 174 H 142 H Ferritin Lactate Dehydrogenase 267 H C-Reactive Protein 8.10 H Albumin Ur Specific [place] Coronavirus (PCR) SARS-CoV-2 IgG Ab 03/14/20 03/14/20 03/14/20 16:58 16:58 Unknown WBC MCH RDW Plt Count Lymph % (Auto) Wilson % (Auto) Lymph # (Auto) Wilson # (Auto) Seg Neutrophils % Seg Neuts % (Manual) Lymphocytes % (Manual) Seg Neutrophils # Seg Neutrophils # Man Lymphocytes # (Manual) Monocytes # (Manual) PT D-Dimer Sodium Potassium Chloride Carbon Dioxide BUN Glucose Ferritin Lactate Dehydrogenase 277 H C-Reactive Protein 2.60 H Albumin Ur Specific [place] Coronavirus (PCR) Positive A SARS-CoV-2 IgG Ab Reactive A 03/16/20 03/16/20 03/16/20 05:18 05:18 10:34 WBC MCH RDW 16.4 H Plt Count Lymph % (Auto) Wilson % (Auto) 10.0 H Lymph # (Auto) Wilson # (Auto) Seg Neutrophils % Seg Neuts % (Manual) Lymphocytes % (Manual) Seg Neutrophils # Seg Neutrophils # Man Lymphocytes # (Manual) Monocytes # (Manual) PT D-Dimer 278.32 H Sodium Potassium 3.1 L Chloride Carbon Dioxide BUN Glucose Ferritin Lactate Dehydrogenase C-Reactive Protein Albumin 3.4 L Ur Specific [place] Coronavirus (PCR) SARS-CoV-2 IgG Ab 03/16/20 03/17/20 03/18/20 10:34 21:24 05:58 WBC 14.8 H MCH RDW 15.8 H Plt Count Lymph % (Auto) 11.5 L Wilson % (Auto) Lymph # (Auto) Wilson # (Auto) 1.0 H Seg Neutrophils % 81.3 H Seg Neuts % (Manual) Lymphocytes % (Manual) Seg Neutrophils # 12.0 H Seg Neutrophils # Man Lymphocytes # (Manual) Monocytes # (Manual) PT D-Dimer Sodium Potassium Chloride Carbon Dioxide BUN Glucose 182 H Ferritin Lactate Dehydrogenase 268 H 268 H C-Reactive Protein 2.10 H 4.90 H Albumin Ur Specific [place] Coronavirus (PCR) SARS-CoV-2 IgG Ab 03/18/20 03/21/20 03/21/20 05:58 05:27 05:27 WBC 14.1 H MCH 27 L RDW 16.1 H Plt Count 513 H Lymph % (Auto) 11.5 L Wilson % (Auto) 7.9 H Lymph # (Auto) Wilson # (Auto) 1.1 H Seg Neutrophils % 78.4 H Seg Neuts % (Manual) Lymphocytes % (Manual) Seg Neutrophils # 11.1 H Seg Neutrophils # Man Lymphocytes # (Manual) Monocytes # (Manual) PT D-Dimer Sodium Potassium 2.9 L* Chloride Carbon Dioxide 18 L BUN Glucose Ferritin Lactate Dehydrogenase C-Reactive Protein Albumin 3.6 L 3.6 L Ur Specific [place] Coronavirus (PCR) SARS-CoV-2 IgG Ab 03/22/20 03/22/20 03/22/20 15:45 15:45 15:45 WBC MCH RDW Plt Count Lymph % (Auto) Wilson % (Auto) Lymph # (Auto) Wilson # (Auto) Seg Neutrophils % Seg Neuts % (Manual) Lymphocytes % (Manual) Seg Neutrophils # Seg Neutrophils # Man Lymphocytes # (Manual) Monocytes # (Manual) PT D-Dimer 274.02 H Sodium Potassium Chloride Carbon Dioxide BUN Glucose Ferritin Lactate Dehydrogenase 259 H C-Reactive Protein 7.60 H Albumin Ur Specific [place] Coronavirus (PCR) SARS-CoV-2 IgG Ab 03/26/20 03/26/20 03/27/20 05:45 05:45 08:21 WBC 34.9 H MCH RDW 15.9 H Plt Count 579 H Lymph % (Auto) Wilson % (Auto) Lymph # (Auto) Wilson # (Auto) Seg Neutrophils % Seg Neuts % (Manual) Lymphocytes % (Manual) Seg Neutrophils # Seg Neutrophils # Man Lymphocytes # (Manual) Monocytes # (Manual) PT D-Dimer Sodium 130 L 130 L Potassium Chloride 86.0 L 88.5 L Carbon Dioxide 35 H BUN 22 H Glucose 227 H 326 H Ferritin Lactate Dehydrogenase 213 H C-Reactive Protein 34.50 H Albumin Ur Specific [place] Coronavirus (PCR) SARS-CoV-2 IgG Ab 03/27/20 03/27/20 03/27/20 08:21 18:45 18:45 WBC 42.1 H* MCH RDW 16.3 H Plt Count Lymph % (Auto) Wilson % (Auto) Lymph # (Auto) Wilson # (Auto) Seg Neutrophils % Seg Neuts % (Manual) 91.0 H Lymphocytes % (Manual) 2.0 L Seg Neutrophils # Seg Neutrophils # Man 38.3 H Lymphocytes # (Manual) 0.8 L Monocytes # (Manual) 1.7 H PT D-Dimer Sodium Potassium Chloride Carbon Dioxide BUN Glucose Ferritin 400.5 H Lactate Dehydrogenase C-Reactive Protein 49.70 H Albumin Ur Specific [place] Coronavirus (PCR) SARS-CoV-2 IgG Ab 03/28/20 03/28/20 03/28/20 07:51 07:51 07:51 WBC 32.2 H MCH 27 L RDW 16.3 H Plt Count Lymph % (Auto) Wilson % (Auto) Lymph # (Auto) Wilson # (Auto) Seg Neutrophils % Seg Neuts % (Manual) 86.0 H Lymphocytes % (Manual) 10.0 L Seg Neutrophils # Seg Neutrophils # Man 27.7 H Lymphocytes # (Manual) Monocytes # (Manual) 1.3 H PT D-Dimer 1182.25 H Sodium Potassium Chloride Carbon Dioxide BUN Glucose Ferritin 514.4 H Lactate Dehydrogenase C-Reactive Protein Albumin Ur Specific [place] Coronavirus (PCR) SARS-CoV-2 IgG Ab 03/28/20 03/28/20 03/29/20 07:51 17:48 05:07 WBC MCH RDW Plt Count Lymph % (Auto) Wilson % (Auto) Lymph # (Auto) Wilson # (Auto) Seg Neutrophils % Seg Neuts % (Manual) Lymphocytes % (Manual) Seg Neutrophils # Seg Neutrophils # Man Lymphocytes # (Manual) Monocytes # (Manual) PT D-Dimer Sodium 136 L Potassium Chloride 93.0 L Carbon Dioxide 35 H BUN Glucose 243 H Ferritin Lactate Dehydrogenase 218 H C-Reactive Protein 18.00 H Albumin Ur Specific [place] 1.036 H Coronavirus (PCR) SARS-CoV-2 IgG Ab 03/29/20 03/29/20 03/30/20 05:07 14:39 05:09 WBC 22.0 H 11.4 H MCH 27 L 27 L RDW 16.0 H 16.1 H Plt Count Lymph % (Auto) Wilson % (Auto) Lymph # (Auto) Wilson # (Auto) Seg Neutrophils % Seg Neuts % (Manual) Lymphocytes % (Manual) Seg Neutrophils # Seg Neutrophils # Man Lymphocytes # (Manual) Monocytes # (Manual) PT D-Dimer Sodium 131 L Potassium Chloride 91.7 L Carbon Dioxide 31 H BUN Glucose 328 H Ferritin Lactate Dehydrogenase C-Reactive Protein Albumin Ur Specific [place] Coronavirus (PCR) SARS-CoV-2 IgG Ab 03/30/20 03/31/20 03/31/20 05:09 05:43 05:43 WBC MCH RDW Plt Count Lymph % (Auto) Wilson % (Auto) Lymph # (Auto) Wilson # (Auto) Seg Neutrophils % Seg Neuts % (Manual) Lymphocytes % (Manual) Seg Neutrophils # Seg Neutrophils # Man Lymphocytes # (Manual) Monocytes # (Manual) PT D-Dimer 734.03 H Sodium 136 L Potassium Chloride 96.2 L Carbon Dioxide BUN Glucose 297 H Ferritin 404.1 H Lactate Dehydrogenase C-Reactive Protein Albumin Ur Specific [place] Coronavirus (PCR) SARS-CoV-2 IgG Ab 03/31/20 04/02/20 04/02/20 05:43 05:32 05:32 WBC MCH RDW Plt Count Lymph % (Auto) [place] % (Auto) Lymph # (Auto) Wilson # (Auto) Seg Neutrophils % Seg Neuts % (Manual) Lymphocytes % (Manual) Seg Neutrophils # Seg Neutrophils # Man Lymphocytes # (Manual) Monocytes # (Manual) PT D-Dimer 652.33 H Sodium Potassium Chloride Carbon Dioxide BUN Glucose Ferritin Lactate Dehydrogenase C-Reactive Protein 3.10 H 2.50 H Albumin Ur Specific [place] Coronavirus (PCR) SARS-CoV-2 IgG Ab 04/04/20 17:15 WBC MCH RDW Plt Count Lymph % (Auto) [place] % (Auto) Lymph # (Auto) [place] # (Auto) Seg Neutrophils % Seg Neuts % (Manual) Lymphocytes % (Manual) Seg Neutrophils # Seg Neutrophils # Man Lymphocytes # (Manual) Monocytes # (Manual) PT D-Dimer Sodium 130 L Potassium 3.0 L Chloride 90.6 L Carbon Dioxide 32 H BUN Glucose 135 H Ferritin Lactate Dehydrogenase C-Reactive Protein Albumin Ur Specific [place] Coronavirus (PCR) SARS-CoV-2 IgG Ab
[2020-04-06] MEDS: SODIUM CHLORIDE NASAL SPRAY 44ML NS SCH ×4 (13:16→21:42)
[2020-04-06] MEDS: ONDANSETRON 4 MG ODT TAB PO PRN ×2 (13:17→23:20)
--- NOTE | 2020-04-06 17:34 | Progress Note ---
Assessment and Plan Assessment and plan: Patient remains on high flow oxygen 15 L nasal cannula Ventimask Wean as tolerated, still severe prolonged hypoxia High risk for mortality, closely monitor Pulmonary critical following --Sepsis; due to COVID-19 infection Current Visit: Yes Status: Acute Plan to address problem: tachypnea, tachycardia, febrile at 102, acute respiratory failure with hypoxia and chest x-ray bilateral patchy infiltrate left greater than right. Patient positive for COVID-19 Infectious disease following S/p empiric antibiotic therapy 03/13 blood cultures x2 no growth after 5 days -- Pneumonia due to COVID-19 virus Current Visit: Yes Status: Acute Plan to address problem: 03/14/20 COVID-19 PCR positive 03/14 Covid 19 antibody positive, not a candidate for convalescent plasma Chest x-ray showed bilateral patchy infiltrate left greater than right. S/p cefepime S/p remdesivir and Decadron Patient now on Solu-Medrol per pulmonology Trend inflammatory markers for wrist education Droplet/contact isolation Supplemental oxygen as needed Anticoagulation per protocol Pulmonary hygiene Continue SPO2 monitoring Prone to sleep as tolerated -- Acute hypoxemic respiratory failure Current Visit: Yes Status: Acute Plan to address problem: Oxygen titrate O2 sats to more than 90% Follow cultures, supportive care -- Leukocytosis Current Visit: Yes Status: Acute Plan to address problem: Worsening leukocytosis, Secondary to sepsis, partly due to steroid use Continue current antibiotics, follow cultures, Taper steroid dose ID recommend CT abdomen and pelvis if leukocytosis does not improve Continue supportive care -- Hyponatremia Current Visit: Yes Status: Acute Plan to address problem: Significantly improved Continue current management Monitor electrolytes -- Elevated d-dimer Current Visit: Yes Status: Acute Plan to address problem: Elevated D-dimer 1182 Anticoagulation per protocol Unable to get VQ scan or CTA chest bilateral lower extremity Doppler negative for DVT -- Hypertension moderate control Current Visit: Yes Status: Chronic Plan to address problem: Continue current antihypertensives As needed medications --Hyperlipidemia Current Visit: Yes Status: Chronic Plan to address problem: Continue home statin, low-cholesterol diet -- GERD (gastroesophageal reflux disease) Current Visit: Yes Status: Chronic Plan to address problem: Continue home PPI --History of COPD (chronic obstructive pulmonary disease) Current Visit: Yes Status: Chronic Plan to address problem: Oxygen titrate O2 sats to more than 90% Nebulizers, steroids Pulmonary following, optimize medications --DVT prophylaxis Current Visit: Yes Status: Acute Plan to address problem: Subcu Lovenox/SCDs Full CODE STATUS Patient is critically ill with very poor prognosis. Requiring high flow oxygen 15 L nasal cannula Poor prognosis, consults and recommendations noted and appreciated Plan of care reviewed with the patient and her nurse 05/22/19: On High flow oxygen 03/22/2020: Patient on high flow oxygen from 40 L Patient does not keep her oxygen consistently as the nursing staff and res piratory therapist to decrease oxygen levels 03/23/2020:Patient still on high flow oxygen, Alert and oriented and cheerful 03/24/20: Patient is on high flow nasal cannula 03/25: remains on high flow O2 03/26: remain on 40L high flow O2, cont supportive care 03/27: Remains on high flow O2, continue to wean off O2 as tolerated. Continue to provide supportive care and monitor closely 03/31/2020; on high flow oxygen 25/96%/O2 sats 98%, patient remains hypoxic, continue current management 04/02/2020; on high flow oxygen 12 L 96%, slightly improved we will closely monitor 04/05/2020; remains on high flow ,Ventimask high flow oxygen 15 L/90%/O2 sat 93% patient is severely hypoxemic Very poor prognosis 04/06/2020; patient remains on 10 L of nasal cannula oxygen Discussed with case management for possible LTAC placement, she is considering [facility] History Interval history: I have seen the patient at the bedside in her room from a distance Patient is in mild distress remains on high flow oxygen 10 L In mild distress, Vital signs noted Hospitalist Physical - Constitutional Vitals: Temp Pulse Resp BP Pulse Ox 97.4 F L 106 H 22 105/51 90 04/06/20 11:52 04/06/20 11:52 04/06/20 11:52 04/06/20 11:52 04/06/20 11:52 General appearance: Present: mild distress, well-nourished, other (Continues with 15 l of nasal cannula oxygen, in mild distress) - EENT Eyes: Present: PERRL, EOM intact - Neck Neck: Present: supple, normal ROM - Respiratory Respiratory effort: normal Respiratory: bilateral: diminished, negative: rales, rhonchi, wheezing - Cardiovascular Heart Sounds: Present: S1 & S2 - Extremities Extremities: no ischemia, No edema - Abdominal General gastrointestinal: soft, non-tender, non-distended, normal bowel sounds - Integumentary Integumentary: Present: clear, warm - Psychiatric Psychiatric: appropriate mood/affect, cooperative - Neurologic Neurologic: moves all extremities HEART Score - HEART Score Troponin: Troponin T < 0.010 ng/mL (0.00-0.029) 03/13/20 16:24 Results - Labs CBC & Chem 7: 03/30/20 05:09 04/04/20 17:15 Labs: Laboratory Last Values WBC 11.4 K/mm3 (4.5-11.0) H 03/30/20 05:09 RBC 4.04 M/mm3 (3.65-5.03) 03/30/20 05:09 Hgb 11.0 gm/dl (10.1-14.3) 03/30/20 05:09 Hct 33.6 % (30.3-42.9) 03/30/20 05:09 MCV 83 fl (79-97) 03/30/20 05:09 MCH 27 pg (28-32) L 03/30/20 05:09 MCHC 33 % (30-34) 03/30/20 05:09 RDW 16.1 % (13.2-15.2) H 03/30/20 05:09 Plt Count 309 K/mm3 (140-440) 03/30/20 05:09 Lymph % (Auto) 11.5 % (13.4-35.0) L 03/21/20 05:27 [place] % (Auto) 7.9 % (0.0-7.3) H 03/21/20 05:27 Eos % (Auto) 2.0 % (0.0-4.3) 03/21/20 05:27 Baso % (Auto) 0.2 % (0.0-1.8) 03/21/20 05:27 Lymph # (Auto) 1.6 K/mm3 (1.2-5.4) 03/21/20 05:27 [place] # (Auto) 1.1 K/mm3 (0.0-0.8) H 03/21/20 05:27 Eos # (Auto) 0.3 K/mm3 (0.0-0.4) 03/21/20 05:27 Baso # (Auto) 0.0 K/mm3 (0.0-0.1) 03/21/20 05:27 Add Manual Diff Complete 03/28/20 07:51 Total Counted 100 03/28/20 07:51 Seg Neutrophils % 78.4 % (40.0-70.0) H 03/21/20 05:27 Seg Neuts % (Manual) 86.0 % (40.0-70.0) H 03/28/20 07:51 Band Neutrophils % 3.0 % 03/27/20 08:21 Lymphocytes % (Manual) 10.0 % (13.4-35.0) L 03/28/20 07:51 Monocytes % (Manual) 4.0 % (0.0-7.3) 03/28/20 07:51 Nucleated RBC % Not Reportable 03/28/20 07:51 Seg Neutrophils # 11.1 K/mm3 (1.8-7.7) H 03/21/20 05:27 Seg Neutrophils # Man 27.7 K/mm3 (1.8-7.7) H 03/28/20 07:51 Band Neutrophils # 0.0 K/mm3 03/28/20 07:51 Lymphocytes # (Manual) 3.2 K/mm3 (1.2-5.4) 03/28/20 07:51 Abs React Lymphs (Man) 0.0 K/mm3 03/28/20 07:51 Monocytes # (Manual) 1.3 K/mm3 (0.0-0.8) H 03/28/20 07:51 Eosinophils # (Manual) 0.0 K/mm3 (0.0-0.4) 03/28/20 07:51 Basophils # (Manual) 0.0 K/mm3 (0.0-0.1) 03/28/20 07:51 Metamyelocytes # 0.0 K/mm3 03/28/20 07:51 Myelocytes # 0.0 K/mm3 03/28/20 07:51 Promyelocytes # 0.0 K/mm3 03/28/20 07:51 Blast Cells # 0.0 K/mm3 03/28/20 07:51 WBC Morphology Not Reportable 03/28/20 07:51 Hypersegmented Neuts Not Reportable 03/28/20 07:51 Hyposegmented Neuts Not Reportable 03/28/20 07:51 Hypogranular Neuts Not Reportable 03/28/20 07:51 Smudge Cells Not Reportable 03/28/20 07:51 Toxic Granulation Not Reportable 03/28/20 07:51 Toxic Vacuolation Few 03/28/20 07:51 Dohle Bodies Not Reportable 03/28/20 07:51 Pel[place]-Huet Anomaly Not Reportable 03/28/20 07:51 Natan Rods Not Reportable 03/28/20 07:51 Platelet Estimate Consistent w auto 03/28/20 07:51 Clumped Platelets Not Reportable 03/28/20 07:51 Plt Clumps, EDTA Not Reportable 03/28/20 07:51 Large Platelets Few 03/28/20 07:51 Giant Platelets Not Reportable 03/28/20 07:51 Platelet Satelliting Not Reportable 03/28/20 07:51 Plt Morphology Comment Not Reportable 03/28/20 07:51 RBC Morphology Normal 03/28/20 07:51 Dimorphic RBCs Not Reportable 03/28/20 07:51 Polychromasia Not Reportable 03/28/20 07:51 Hypochromasia Not Reportable 03/28/20 07:51 Poikilocytosis Not Reportable 03/28/20 07:51 Anisocytosis Not Reportable 03/28/20 07:51 Microcytosis Not Reportable 03/28/20 07:51 Macrocytosis Not Reportable 03/28/20 07:51 Spherocytes Not Reportable 03/28/20 07:51 Pappenheimer Bodies Not Reportable 03/28/20 07:51 Sickle Cells Not Reportable 03/28/20 07:51 Target Cells Not Reportable 03/28/20 07:51 Tear Drop Cells Not Reportable 03/28/20 07:51 Ovalocytes Not Reportable 03/28/20 07:51 Helmet Cells Not Reportable 03/28/20 07:51 [place] Bodies Not Reportable 03/28/20 07:51 [place] Rings Not Reportable 03/28/20 07:51 [place] Cells Not Reportable 03/28/20 07:51 Bite Cells Not Reportable 03/28/20 07:51 Crenated Cell Not Reportable 03/28/20 07:51 Elliptocytes Not Reportable 03/28/20 07:51 Acanthocytes (Spur) Not Reportable 03/28/20 07:51 Rouleaux Not Reportable 03/28/20 07:51 Hemoglobin C Crystals Not Reportable 03/28/20 07:51 Schistocytes Not Reportable 03/28/20 07:51 Malaria parasites Not Reportable 03/28/20 07:51 [place] Bodies Not Reportable 03/28/20 07:51 Hem Pathologist Commnt No 03/28/20 07:51 PT 11.8 Sec. (12.2-14.9) L 03/13/20 16:24 INR 0.89 (0.87-1.13) 03/13/20 16:24 D-Dimer 652.33 ng/mlDDU (0-234) H 04/02/20 05:32 Sodium 130 mmol/L (137-145) L 04/04/20 17:15 Potassium 3.0 mmol/L (3.6-5.0) L 04/04/20 17:15 Chloride 90.6 mmol/L (98-107) L 04/04/20 17:15 Carbon Dioxide 32 mmol/L (22-30) H 04/04/20 17:15 Anion Gap 10 mmol/L 04/04/20 17:15 BUN 11 mg/dL (7-17) 04/04/20 17:15 Creatinine 0.7 mg/dL (0.6-1.2) 04/04/20 17:15 Estimated GFR > 60 ml/min 04/04/20 17:15 BUN/Creatinine Ratio 16 % 04/04/20 17:15 Glucose 135 mg/dL (65-100) H 04/04/20 17:15 Lactic Acid 1.70 mmol/L (0.7-2.0) 03/13/20 16:24 Calcium 9.5 mg/dL (8.4-10.2) 04/04/20 17:15 Magnesium 1.80 mg/dL (1.7-2.3) 03/13/20 16:24 Total Bilirubin 0.30 mg/dL (0.1-1.2) 03/21/20 05:27 Ferritin 183.1 ng/mL (10.0-200.0) 04/02/20 05:32 Direct Bilirubin < 0.2 mg/dL (0-0.2) 03/16/20 05:18 Indirect Bilirubin 0.1 mg/dL 03/16/20 05:18 AST 12 units/L (5-40) 03/21/20 05:27 ALT 8 units/L (7-56) 03/21/20 05:27 Alkaline Phosphatase 72 units/L (35-129) 03/21/20 05:27 Lactate Dehydrogenase 218 units/L (91-180) H 03/29/20 05:07 Total Creatine Kinase 42 units/L (30-135) 03/13/20 16:24 Troponin T < 0.010 ng/mL (0.00-0.029) 03/13/20 16:24 C-Reactive Protein 2.50 mg/dL (0.00-1.30) H 04/02/20 05:32 NT-Pro-B Natriuret Pep 220.0 pg/mL (0-900) 03/25/20 15:14 Total Protein 7.3 g/dL (6.3-8.2) 03/21/20 05:27 Albumin 3.6 g/dL (3.9-5) L 03/21/20 05:27 Albumin/Globulin Ratio 1.0 % 03/21/20 05:27 Procalcitonin 1.16 ng/mL (<0.15) 03/27/20 18:45 Urine Color Yellow (Yellow) 03/28/20 17:48 Urine Turbidity Clear (Clear) 03/28/20 17:48 Urine pH 6.0 (5.0-7.0) 03/28/20 17:48 Ur Specific [place] 1.036 (1.003-1.030) H 03/28/20 17:48 Urine Protein 30 mg/dl mg/dL (Negative) 03/28/20 17:48 Urine Glucose (UA) >=500 mg/dL (Negative) 03/28/20 17:48 Urine Ketones Tr mg/dL (Negative) 03/28/20 17:48 Urine Blood Neg (Negative) 03/28/20 17:48 Urine Nitrite Neg (Negative) 03/28/20 17:48 Urine Bilirubin Neg (Negative) 03/28/20 17:48 Urine Urobilinogen < 2.0 mg/dL (<2.0) 03/28/20 17:48 Ur Leukocyte Esterase Tr (Negative) 03/28/20 17:48 Urine WBC (Auto) 5.0 /HPF (0.0-6.0) 03/28/20 17:48 Urine RBC (Auto) 2.0 /HPF (0.0-6.0) 03/28/20 17:48 U Epithel Cells (Auto) 2.0 /HPF (0-13.0) 03/28/20 17:48 Urine Mucus Few /HPF 03/28/20 17:48 Vancomycin Trough 5.7 ug/mL (5.0-20.0) 03/28/20 21:20 Coronavirus (PCR) Positive (Negative) A 03/14/20 Unknown SARS-CoV-2 IgG Ab Reactive (NonReactive) A 03/14/20 16:58 [place]/IV: Voiding Method Bedside Commode IV Catheter Type [Left Forearm Peripheral IV ] IV Catheter Type [Right INT / Saline Lock Forearm] IV Catheter Type [Right Wrist] INT / Saline Lock IV Catheter Type [Right Hand] INT / Saline Lock IV Catheter Type [Left Upper INT / Saline Lock arm] IV Catheter Type [Left Peripheral IV Antecubital] Active Medications - Current Medications Current Medications: Generic Name Dose Route Start Last Admin Trade Name Freq PRN Reason Stop Dose Admin Acetaminophen 650 mg 03/13/20 17:21 04/04/20 22:16 Acetaminophen 325 Mg Tab PO 650 mg Q4H PRN Administration Pain MILD(1-3)/Fever >100.5/CARIAS Albuterol 2.5 mg 03/13/20 17:21 Albuterol 2.5 Mg/3 Ml Nebu IH Q4HRT PRN Shortness Of Breath Alprazolam 0.5 mg 03/25/20 20:27 04/02/20 10:47 Alprazolam 0.5 Mg Tab PO 0.5 mg Q8H PRN Administration Anxiety Amitriptyline HCl 10 mg 03/25/20 22:00 04/05/20 21:36 Amitriptyline 10 Mg Tab PO 10 mg QHS SANDY Administration Ascorbic Acid 1,000 mg 03/26/20 10:00 04/06/20 09:34 Ascorbic Acid 500 Mg Tab PO 1,000 mg BID SANDY Administration Benzonatate 100 mg 03/13/20 22:00 04/06/20 13:17 Benzonatate 100 Mg Cap PO 100 mg Q8HR SANDY Administration Duloxetine HCl 60 mg 03/14/20 10:00 04/06/20 09:35 Duloxetine 30 Mg Cap PO 60 mg QDAY SANDY Administration Enoxaparin Sodium 40 mg 03/23/20 22:00 04/05/20 21:36 Enoxaparin 40 Mg/0.4 Ml Inj SUB-Q 40 mg QDAY@2200 SANDY Administration Protocol Ergocalciferol 50,000 unit 03/20/20 10:00 04/03/20 11:36 Ergocalciferol (Vit D2) 50,000 Unit Cap PO 50,000 unit [place] SANDY Administration Famotidine 10 mg 03/29/20 23:00 04/06/20 09:35 Famotidine 20 Mg Tab PO 10 mg BID SANDY Administration Gabapentin 300 mg 03/13/20 20:00 04/06/20 13:17 Gabapentin 300 Mg Cap PO 300 mg TID SANDY Administration Guaifenesin 10 ml 03/13/20 17:24 04/04/20 04:09 Guaifenesin Dm 200/20 Mg Oral Liqd 10 Ml PO 10 ml Q4H PRN Administration Cough Hydroxyzine Pamoate 50 mg 03/13/20 22:00 04/06/20 13:16 Hydroxyzine Pamoate 50 Mg Cap PO 50 mg QID SANDY Administration Lamotrigine 100 mg 03/14/20 10:00 04/06/20 09:34 Lamotrigine 100 Mg Tab PO 100 mg QDAY SANDY Administration [place] Carbonate 150 mg 03/13/20 22:00 04/06/20 09:34 [place] Carbonate 150 Mg Cap PO 150 mg BID SANDY Administration Metoprolol Tartrate 12.5 mg 03/31/20 22:00 04/06/20 09:34 Metoprolol Tartrate 25 Mg Tab PO 12.5 mg BID SANDY Administration Montelukast Sodium 10 mg 03/14/20 10:00 04/06/20 09:34 Montelukast 10 Mg Tab PO 10 mg DAILY SANDY Administration Ondansetron HCl 4 mg 03/13/20 17:21 04/05/20 10:10 Ondansetron 4 Mg/2 Ml Inj IV 4 mg Q8H PRN Administration Nausea And Vomiting Ondansetron HCl 4 mg 04/06/20 13:00 04/06/20 13:17 Ondansetron 4 Mg Odt Tab PO 4 mg Q6H PRN Administration Nausea Oxybutynin Chloride 5 mg 03/13/20 20:00 04/06/20 13:17 Oxybutynin 5 Mg Tab PO 5 mg TID SANDY Administration Oxycodone/Acetaminophen 1 tab 03/30/20 08:06 04/06/20 13:16 Oxycodone /Acetaminophen 5-325mg Tab PO 1 tab Q6H PRN Administration Pain, Moderate (4-6) Phenol 1 spray 03/25/20 20:05 03/26/20 00:27 Phenol 1.4% 177 Ml Bottle MM 1 spray PRN PRN Administration Sore Throat Sodium Chloride 10 ml 03/13/20 22:00 04/06/20 09:35 Sodium Chloride 0.9% 10 Ml Flush Syringe IV 10 ml BID SANDY Administration Sodium Chloride 10 ml 03/13/20 17:21 Sodium Chloride 0.9% 10 Ml Flush Syringe IV PRN PRN LINE FLUSH Sodium Chloride 2 spray 04/06/20 10:00 04/06/20 13:16 Sodium Chloride Nasal [place] 44ml NS 2 spray QID SANDY Administration Trazodone HCl 100 mg 03/13/20 22:00 04/05/20 21:37 Trazodone 100 Mg Tab PO 100 mg QHS SANDY Administration Zinc Sulfate 220 mg 03/26/20 10:00 04/06/20 09:34 Zinc Sulfate 220 Mg Cap PO 220 mg BID SANDY Administration Nutrition/Malnutrition Assess - Dietary Evaluation Nutrition/Malnutrition Findings: Nutrition Notes Start: 03/14/20 15:39 Freq: Status: Active Protocol: Document 04/05/20 13:55 LM (Rec: 04/05/20 14:37 LM [id number]) Nutrition Notes Initial or Follow up Reassessment Current Diagnosis COPD,Sepsis,Hypertension, Hyperlipidemia Other Pertinent Diagnosis Pneu, COVID-19 (+), GERD Current Diet Cardiac Labs/Tests Na 130 K 3 Pertinent Medications Vitamin C Zinc Zofran Pepcid Height 5 ft 1 in Weight 58.9 kg [place] Body Weight (kg) 47.72 BMI 24.5 Weight change and time frame Wt change noted Weight Status Appropriate Subjective/Other Information Pt did not answer phone. Pt has 100% intakes for breakfast and lunch. Percent of energy/protein needs met: 100%/100% Burn Absent Trauma Absent Current % PO Good (75-100%) Minimum of two criteria No #1 Nutrition Diagnosis Inadequate oral intake As Evidenced by Signs and Symptoms pt eating 100% Diagnosis Progress(for reassessment Improved documentation) Is patient on ventilator? No Is Patient Ambulatory and/or Out of Bed Yes REE-([facility]-ambulatory/OOB) [ 1386.294 [id number]] Calculation Used for Recommendations [facility][1] Additional Notes Pro needs 1-1.2g/k-76g/ day Fluid needs 1ml/kcal Nutrition Intervention Change Diet Order: Continue current diet order Add Supplement/Snack (indicate name/kcal Glucerna daily /protein ) Provides kCal: 220 Provides Protein (gm) 10 Goal #1 PO intake of meals plus ONS to meet at least 75% energy and pro needs Anticipated Discharge Needs: Cardiac Diet with ONS PRN Follow-Up By: 04/12/20 Additional Comments F/U for stable intakes
[2020-04-06] MEDS: AMITRIPTYLINE 10 MG TAB PO SCH (21:42)
[2020-04-06] MEDS: ENOXAPARIN 40 MG/0.4 ML INJ SUB-Q SCH (21:42)
[2020-04-06] MEDS: traZODone 100 MG TAB PO SCH (21:42)
[2020-04-07] MEDS: BENZONATATE 100 MG CAP PO SCH ×3 (06:10→22:11)
[2020-04-07] MEDS: LITHIUM CARBONATE 150 MG CAP PO SCH ×2 (09:31→22:09)
[2020-04-07] MEDS: ASCORBIC ACID 500 MG TAB PO SCH ×2 (09:31→22:09)
[2020-04-07] MEDS: METOPROLOL TARTRATE 25 MG TAB PO SCH (09:31)
[2020-04-07] MEDS: DULoxetine 30 MG CAP PO SCH (09:31)
[2020-04-07] MEDS: OXYBUTYNIN 5 MG TAB PO SCH ×3 (09:32→22:11)
[2020-04-07] MEDS: GABAPENTIN 300 MG CAP PO SCH ×3 (09:32→22:10)
[2020-04-07] MEDS: oxyCODONE /ACETAMINOPHEN 5-325MG TAB PO PRN (09:32)
[2020-04-07] MEDS: MONTELUKAST 10 MG TAB PO SCH (09:32)
[2020-04-07] MEDS: ZINC SULFATE 220 MG CAP PO SCH ×2 (09:32→22:09)
[2020-04-07] MEDS: lamoTRIgine 100 MG TAB PO SCH (09:33)
[2020-04-07] MEDS: FAMOTIDINE 20 MG TAB PO SCH ×2 (09:33→22:11)
[2020-04-07] MEDS: SODIUM CHLORIDE NASAL SPRAY 44ML NS SCH ×4 (09:34→22:55)
--- NOTE | 2020-04-07 10:35 | Progress Note ---
Assessment and Plan 64 y/o female with acute on chronic respiratory failure secondary COVID 19 pneumonia. 1. steroids are now off. Continue to wean FiO2 for sats >88% 2. Ordered nasal saline to help with moisture and nose bleeds secondary to prolonged high flow. 3. Prone as tolerated during the day and sleep prone at night. Patient has been noncompliant with this. Did not prone again last night. 4. Guarded prognosis given prolonged high levels of flow and oxygen requirements. Subjective Date of service: 04/07/20 Principal diagnosis: COVID/COPD Interval history: Now down to 5 liters with good sats. Objective Vital Signs - 12hr 04/07/20 04/07/20 04/07/20 02:00 03:49 03:50 Temperature 98.0 F Pulse Rate 108 H 109 H Respiratory 18 Rate Blood Pressure 99/31 100/52 O2 Sat by Pulse 93 94 94 Oximetry 04/07/20 08:00 Temperature Pulse Rate Respiratory Rate Blood Pressure O2 Sat by Pulse 94 Oximetry Constitutional: alert, other (critically ill on HFNC) Eyes: non-icteric Neck: supple Effort: mildly labored Ascultation: Bilateral: clear, wheezes Cardiovascular: other (tachy, RR; no mrg) Gastrointestinal: normoactive bowel sounds, soft, non-tender Integumentary: normal Extremities: no cyanosis, no edema, pink and warm Neurologic: normal mental status, non-focal exam, CN II-XII normal Psychiatric: anxious, other (very fidgety) CBC and BMP: 03/30/20 05:09 04/04/20 17:15 ABG, PT/INR, D-dimer: PT/INR, D-dimer PT 11.8 Sec. (12.2-14.9) L 03/13/20 16:24 INR 0.89 (0.87-1.13) 03/13/20 16:24 D-Dimer 652.33 ng/mlDDU (0-234) H 04/02/20 05:32 Abnormal lab findings: Abnormal Labs 03/13/20 03/13/20 03/13/20 16:24 16:24 16:24 WBC MCH RDW 16.8 H Plt Count Lymph % (Auto) 8.5 L [place] % (Auto) Lymph # (Auto) 0.6 L [place] # (Auto) Seg Neutrophils % 84.9 H Seg Neuts % (Manual) Lymphocytes % (Manual) Seg Neutrophils # Seg Neutrophils # Man Lymphocytes # (Manual) Monocytes # (Manual) PT 11.8 L D-Dimer 234.66 H Sodium 135 L Potassium 3.1 L Chloride Carbon Dioxide BUN Glucose 174 H Ferritin Lactate Dehydrogenase 277 H C-Reactive Protein 8.00 H Albumin 3.7 L Ur Specific [place] Coronavirus (PCR) SARS-CoV-2 IgG Ab 03/13/20 03/14/20 03/14/20 16:24 08:02 08:02 WBC 3.9 L MCH RDW 16.3 H Plt Count Lymph % (Auto) [place] % (Auto) 9.5 H Lymph # (Auto) 0.7 L [place] # (Auto) Seg Neutrophils % 72.9 H Seg Neuts % (Manual) Lymphocytes % (Manual) Seg Neutrophils # Seg Neutrophils # Man Lymphocytes # (Manual) Monocytes # (Manual) PT D-Dimer Sodium Potassium Chloride 107.4 H Carbon Dioxide BUN Glucose 174 H 142 H Ferritin Lactate Dehydrogenase 267 H C-Reactive Protein 8.10 H Albumin Ur Specific [place] Coronavirus (PCR) SARS-CoV-2 IgG Ab 03/14/20 03/14/20 03/14/20 16:58 16:58 Unknown WBC MCH RDW Plt Count Lymph % (Auto) [place] % (Auto) Lymph # (Auto) [place] # (Auto) Seg Neutrophils % Seg Neuts % (Manual) Lymphocytes % (Manual) Seg Neutrophils # Seg Neutrophils # Man Lymphocytes # (Manual) Monocytes # (Manual) PT D-Dimer Sodium Potassium Chloride Carbon Dioxide BUN Glucose Ferritin Lactate Dehydrogenase 277 H C-Reactive Protein 2.60 H Albumin Ur Specific [place] Coronavirus (PCR) Positive A SARS-CoV-2 IgG Ab Reactive A 03/16/20 03/16/20 03/16/20 05:18 05:18 10:34 WBC MCH RDW 16.4 H Plt Count Lymph % (Auto) [place] % (Auto) 10.0 H Lymph # (Auto) [place] # (Auto) Seg Neutrophils % Seg Neuts % (Manual) Lymphocytes % (Manual) Seg Neutrophils # Seg Neutrophils # Man Lymphocytes # (Manual) Monocytes # (Manual) PT D-Dimer 278.32 H Sodium Potassium 3.1 L Chloride Carbon Dioxide BUN Glucose Ferritin Lactate Dehydrogenase C-Reactive Protein Albumin 3.4 L Ur Specific [place] Coronavirus (PCR) SARS-CoV-2 IgG Ab 03/16/20 03/17/20 03/18/20 10:34 21:24 05:58 WBC 14.8 H MCH RDW 15.8 H Plt Count Lymph % (Auto) 11.5 L [place] % (Auto) Lymph # (Auto) [place] # (Auto) 1.0 H Seg Neutrophils % 81.3 H Seg Neuts % (Manual) Lymphocytes % (Manual) Seg Neutrophils # 12.0 H Seg Neutrophils # Man Lymphocytes # (Manual) Monocytes # (Manual) PT D-Dimer Sodium Potassium Chloride Carbon Dioxide BUN Glucose 182 H Ferritin Lactate Dehydrogenase 268 H 268 H C-Reactive Protein 2.10 H 4.90 H Albumin Ur Specific [place] Coronavirus (PCR) SARS-CoV-2 IgG Ab 03/18/20 03/21/20 03/21/20 05:58 05:27 05:27 WBC 14.1 H MCH 27 L RDW 16.1 H Plt Count 513 H Lymph % (Auto) 11.5 L [place] % (Auto) 7.9 H Lymph # (Auto) [place] # (Auto) 1.1 H Seg Neutrophils % 78.4 H Seg Neuts % (Manual) Lymphocytes % (Manual) Seg Neutrophils # 11.1 H Seg Neutrophils # Man Lymphocytes # (Manual) Monocytes # (Manual) PT D-Dimer Sodium Potassium 2.9 L* Chloride Carbon Dioxide 18 L BUN Glucose Ferritin Lactate Dehydrogenase C-Reactive Protein Albumin 3.6 L 3.6 L Ur Specific [place] Coronavirus (PCR) SARS-CoV-2 IgG Ab 03/22/20 03/22/20 03/22/20 15:45 15:45 15:45 WBC MCH RDW Plt Count Lymph % (Auto) [place] % (Auto) Lymph # (Auto) [place] # (Auto) Seg Neutrophils % Seg Neuts % (Manual) Lymphocytes % (Manual) Seg Neutrophils # Seg Neutrophils # Man Lymphocytes # (Manual) Monocytes # (Manual) PT D-Dimer 274.02 H Sodium Potassium Chloride Carbon Dioxide BUN Glucose Ferritin Lactate Dehydrogenase 259 H C-Reactive Protein 7.60 H Albumin Ur Specific [place] Coronavirus (PCR) SARS-CoV-2 IgG Ab 03/26/20 03/26/20 03/27/20 05:45 05:45 08:21 WBC 34.9 H MCH RDW 15.9 H Plt Count 579 H Lymph % (Auto) [place] % (Auto) Lymph # (Auto) [place] # (Auto) Seg Neutrophils % Seg Neuts % (Manual) Lymphocytes % (Manual) Seg Neutrophils # Seg Neutrophils # Man Lymphocytes # (Manual) Monocytes # (Manual) PT D-Dimer Sodium 130 L 130 L Potassium Chloride 86.0 L 88.5 L Carbon Dioxide 35 H BUN 22 H Glucose 227 H 326 H Ferritin Lactate Dehydrogenase 213 H C-Reactive Protein 34.50 H Albumin Ur Specific [place] Coronavirus (PCR) SARS-CoV-2 IgG Ab 03/27/20 03/27/20 03/27/20 08:21 18:45 18:45 WBC 42.1 H* MCH RDW 16.3 H Plt Count Lymph % (Auto) [place] % (Auto) Lymph # (Auto) [place] # (Auto) Seg Neutrophils % Seg Neuts % (Manual) 91.0 H Lymphocytes % (Manual) 2.0 L Seg Neutrophils # Seg Neutrophils # Man 38.3 H Lymphocytes # (Manual) 0.8 L Monocytes # (Manual) 1.7 H PT D-Dimer Sodium Potassium Chloride Carbon Dioxide BUN Glucose Ferritin 400.5 H Lactate Dehydrogenase C-Reactive Protein 49.70 H Albumin Ur Specific [place] Coronavirus (PCR) SARS-CoV-2 IgG Ab 03/28/20 03/28/20 03/28/20 07:51 07:51 07:51 WBC 32.2 H MCH 27 L RDW 16.3 H Plt Count Lymph % (Auto) [place] % (Auto) Lymph # (Auto) [place] # (Auto) Seg Neutrophils % Seg Neuts % (Manual) 86.0 H Lymphocytes % (Manual) 10.0 L Seg Neutrophils # Seg Neutrophils # Man 27.7 H Lymphocytes # (Manual) Monocytes # (Manual) 1.3 H PT D-Dimer 1182.25 H Sodium Potassium Chloride Carbon Dioxide BUN Glucose Ferritin 514.4 H Lactate Dehydrogenase C-Reactive Protein Albumin Ur Specific [place] Coronavirus (PCR) SARS-CoV-2 IgG Ab 03/28/20 03/28/20 03/29/20 07:51 17:48 05:07 WBC MCH RDW Plt Count Lymph % (Auto) [place] % (Auto) Lymph # (Auto) [place] # (Auto) Seg Neutrophils % Seg Neuts % (Manual) Lymphocytes % (Manual) Seg Neutrophils # Seg Neutrophils # Man Lymphocytes # (Manual) Monocytes # (Manual) PT D-Dimer Sodium 136 L Potassium Chloride 93.0 L Carbon Dioxide 35 H BUN Glucose 243 H Ferritin Lactate Dehydrogenase 218 H C-Reactive Protein 18.00 H Albumin Ur Specific [place] 1.036 H Coronavirus (PCR) SARS-CoV-2 IgG Ab 03/29/20 03/29/20 03/30/20 05:07 14:39 05:09 WBC 22.0 H 11.4 H MCH 27 L 27 L RDW 16.0 H 16.1 H Plt Count Lymph % (Auto) [place] % (Auto) Lymph # (Auto) [place] # (Auto) Seg Neutrophils % Seg Neuts % (Manual) Lymphocytes % (Manual) Seg Neutrophils # Seg Neutrophils # Man Lymphocytes # (Manual) Monocytes # (Manual) PT D-Dimer Sodium 131 L Potassium Chloride 91.7 L Carbon Dioxide 31 H BUN Glucose 328 H Ferritin Lactate Dehydrogenase C-Reactive Protein Albumin Ur Specific [place] Coronavirus (PCR) SARS-CoV-2 IgG Ab 03/30/20 03/31/20 03/31/20 05:09 05:43 05:43 WBC MCH RDW Plt Count Lymph % (Auto) [place] % (Auto) Lymph # (Auto) [place] # (Auto) Seg Neutrophils % Seg Neuts % (Manual) Lymphocytes % (Manual) Seg Neutrophils # Seg Neutrophils # Man Lymphocytes # (Manual) Monocytes # (Manual) PT D-Dimer 734.03 H Sodium 136 L Potassium Chloride 96.2 L Carbon Dioxide BUN Glucose 297 H Ferritin 404.1 H Lactate Dehydrogenase C-Reactive Protein Albumin Ur Specific [place] Coronavirus (PCR) SARS-CoV-2 IgG Ab 03/31/20 04/02/20 04/02/20 05:43 05:32 05:32 WBC MCH RDW Plt Count Lymph % (Auto) [place] % (Auto) Lymph # (Auto) [place] # (Auto) Seg Neutrophils % Seg Neuts % (Manual) Lymphocytes % (Manual) Seg Neutrophils # Seg Neutrophils # Man Lymphocytes # (Manual) Monocytes # (Manual) PT D-Dimer 652.33 H Sodium Potassium Chloride Carbon Dioxide BUN Glucose Ferritin Lactate Dehydrogenase C-Reactive Protein 3.10 H 2.50 H Albumin Ur Specific [place] Coronavirus (PCR) SARS-CoV-2 IgG Ab 04/04/20 17:15 WBC MCH RDW Plt Count Lymph % (Auto) [place] % (Auto) Lymph # (Auto) [place] # (Auto) Seg Neutrophils % Seg Neuts % (Manual) Lymphocytes % (Manual) Seg Neutrophils # Seg Neutrophils # Man Lymphocytes # (Manual) Monocytes # (Manual) PT D-Dimer Sodium 130 L Potassium 3.0 L Chloride 90.6 L Carbon Dioxide 32 H BUN Glucose 135 H Ferritin Lactate Dehydrogenase C-Reactive Protein Albumin Ur Specific [place] Coronavirus (PCR) SARS-CoV-2 IgG Ab
[2020-04-07] MEDS: ACETAMINOPHEN 325 MG TAB PO PRN (17:10)
--- NOTE | 2020-04-07 18:15 | Progress Note ---
Assessment and Plan Assessment and plan: --COVID-19 pneumonia with hypoxia Required high flow oxygen no distress Today patient weaned to 5 L of nasal cannula oxygen Patient feels slightly better, wean the oxygen to 2 to 3 L High risk for mortality, closely monitor Pulmonary critical following --Sepsis; due to COVID-19 infection Current Visit: Yes Status: Acute Plan to address problem: tachypnea, tachycardia, febrile at 102, acute respiratory failure with hypoxia and chest x-ray bilateral patchy infiltrate left greater than right. Patient positive for COVID-19 Infectious disease following S/p empiric antibiotic therapy 03/13 blood cultures x2 no growth after 5 days -- Pneumonia due to COVID-19 virus Current Visit: Yes Status: Acute Plan to address problem: 03/14/20 COVID-19 PCR positive 03/14 Covid 19 antibody positive, not a candidate for convalescent plasma Chest x-ray showed bilateral patchy infiltrate left greater than right. S/p cefepime S/p remdesivir and Decadron Patient now on Solu-Medrol per pulmonology Trend inflammatory markers for wrist education Droplet/contact isolation Supplemental oxygen as needed Anticoagulation per protocol Pulmonary hygiene Continue SPO2 monitoring Prone to sleep as tolerated -- Acute hypoxemic respiratory failure Current Visit: Yes Status: Acute Plan to address problem: Oxygen titrate O2 sats to more than 90% Follow cultures, supportive care -- Leukocytosis Current Visit: Yes Status: Acute Plan to address problem: Worsening leukocytosis, Secondary to sepsis, partly due to steroid use Continue current antibiotics, follow cultures, Taper steroid dose ID recommend CT abdomen and pelvis if leukocytosis does not improve Continue supportive care -- Hyponatremia Current Visit: Yes Status: Acute Plan to address problem: Significantly improved Continue current management Monitor electrolytes -- Elevated d-dimer Current Visit: Yes Status: Acute Plan to address problem: Elevated D-dimer 1182 Anticoagulation per protocol Unable to get VQ scan or CTA chest bilateral lower extremity Doppler negative for DVT -- Hypertension moderate control Current Visit: Yes Status: Chronic Plan to address problem: Continue current antihypertensives As needed medications --Hyperlipidemia Current Visit: Yes Status: Chronic Plan to address problem: Continue home statin, low-cholesterol diet -- GERD (gastroesophageal reflux disease) Current Visit: Yes Status: Chronic Plan to address problem: Continue home PPI --History of COPD (chronic obstructive pulmonary disease) Current Visit: Yes Status: Chronic Plan to address problem: Oxygen titrate O2 sats to more than 90% Nebulizers, steroids Pulmonary following, optimize medications --DVT prophylaxis Current Visit: Yes Status: Acute Plan to address problem: Subcu Lovenox/SCDs Full CODE STATUS Patient is critically ill with very poor prognosis. Requiring high flow oxygen 15 L nasal cannula Poor prognosis, consults and recommendations noted and appreciated Plan of care reviewed with the patient and her nurse 05/22/19: On High flow oxygen 03/22/2020: Patient on high flow oxygen from 40 L Patient does not keep her oxygen consistently as the nursing staff and respiratory therapist to decrease oxygen levels 03/23/2020:Patient still on high flow oxygen, Alert and oriented and cheerful 03/24/20: Patient is on high flow nasal cannula 03/25: remains on high flow O2 03/26: remain on 40L high flow O2, cont supportive care 03/27: Remains on high flow O2, continue to wean off O2 as tolerated. Continue to provide supportive care and monitor closely 03/31/2020; on high flow oxygen 25/96%/O2 sats 98%, patient remains hypoxic, continue current management 04/02/2020; on high flow oxygen 12 L 96%, slightly improved we will closely monitor 04/05/2020; remains on high flow ,Ventimask high flow oxygen 15 L/90%/O2 sat 93% patient is severely hypoxemic Very poor prognosis 04/06/2020; patient remains on 10 L of nasal cannula oxygen Discussed with case management for possible LTAC placement, she is considering [facility] 04/07/2020; 5 L of nasal cannula oxygen, wean oxygen to 2 to 3 L and plan DC home If no improvement LTAC placement Brief history: 64 YO Female with COPD, GERD, HTN, HLD, Anxiety, OA, ARDS, asthma (mild,intermittent) presents to the emergency department on 03/13 with 5 days of worsening subjective fever, fatigue, muscle aches, generalized weakness, malaise, dry cough, decreased exercise intolerance, loss of sense of smell and taste, shortness of breath, nausea, multiple loose stools and diminished oral intake. Upon presentation patient was found to be tachypneic, tachycardic and febrile with temperature 101.9 acute hypoxemic respiratory failure with a pulse oximetry on room air of 86% on exertion. Her chest x-ray was compatible with bilateral pneumonia. She was admitted to the hospital service with sepsis as a COVID-19 PUI and infectious disease was consulted. Given patient's persistent hypoxia pulmonology was consulted. patient remains on high flow O2 - weaning in progress History Interval history: I seen and examined the patient at the bedside this morning Isolation precautions PPE protocol strictly followed Patient feels slightly better Today patient is on 5 L of nasal cannula oxygen No complaints Vital signs reviewed Hospitalist Physical - Constitutional Vitals: Temp Pulse Resp BP Pulse Ox 97.6 F 107 H 18 116/60 94 04/07/20 12:33 04/07/20 12:33 04/07/20 12:33 04/07/20 12:33 04/07/20 12:33 General appearance: Present: no acute distress, well-nourished, other (Continues with 15 l of nasal cannula oxygen, in mild distress) - EENT Eyes: Present: PERRL, EOM intact - Neck Neck: Present: supple, normal ROM - Respiratory Respiratory effort: normal Respiratory: bilateral: diminished, rhonchi, negative: rales, wheezing - Cardiovascular Rhythm: regular Heart Sounds: Present: S1 & S2 - Extremities Extremities: no ischemia, No edema - Abdominal General gastrointestinal: soft, non-tender, non-distended, normal bowel sounds - Integumentary Integumentary: Present: clear, warm - Psychiatric Psychiatric: appropriate mood/affect, cooperative - Neurologic Neurologic: moves all extremities HEART Score - HEART Score Troponin: Troponin T < 0.010 ng/mL (0.00-0.029) 03/13/20 16:24 Results - Labs CBC & Chem 7: 03/30/20 05:09 04/04/20 17:15 Labs: Laboratory Last Values WBC 11.4 K/mm3 (4.5-11.0) H 03/30/20 05:09 RBC 4.04 M/mm3 (3.65-5.03) 03/30/20 05:09 Hgb 11.0 gm/dl (10.1-14.3) 03/30/20 05:09 Hct 33.6 % (30.3-42.9) 03/30/20 05:09 MCV 83 fl (79-97) 03/30/20 05:09 MCH 27 pg (28-32) L 03/30/20 05:09 MCHC 33 % (30-34) 03/30/20 05:09 RDW 16.1 % (13.2-15.2) H 03/30/20 05:09 Plt Count 309 K/mm3 (140-440) 03/30/20 05:09 Lymph % (Auto) 11.5 % (13.4-35.0) L 03/21/20 05:27 [place] % (Auto) 7.9 % (0.0-7.3) H 03/21/20 05:27 Eos % (Auto) 2.0 % (0.0-4.3) 03/21/20 05:27 Baso % (Auto) 0.2 % (0.0-1.8) 03/21/20 05:27 Lymph # (Auto) 1.6 K/mm3 (1.2-5.4) 03/21/20 05:27 [place] # (Auto) 1.1 K/mm3 (0.0-0.8) H 03/21/20 05:27 Eos # (Auto) 0.3 K/mm3 (0.0-0.4) 03/21/20 05:27 Baso # (Auto) 0.0 K/mm3 (0.0-0.1) 03/21/20 05:27 Add Manual Diff Complete 03/28/20 07:51 Total Counted 100 03/28/20 07:51 Seg Neutrophils % 78.4 % (40.0-70.0) H 03/21/20 05:27 Seg Neuts % (Manual) 86.0 % (40.0-70.0) H 03/28/20 07:51 Band Neutrophils % 3.0 % 03/27/20 08:21 Lymphocytes % (Manual) 10.0 % (13.4-35.0) L 03/28/20 07:51 Monocytes % (Manual) 4.0 % (0.0-7.3) 03/28/20 07:51 Nucleated RBC % Not Reportable 03/28/20 07:51 Seg Neutrophils # 11.1 K/mm3 (1.8-7.7) H 03/21/20 05:27 Seg Neutrophils # Man 27.7 K/mm3 (1.8-7.7) H 03/28/20 07:51 Band Neutrophils # 0.0 K/mm3 03/28/20 07:51 Lymphocytes # (Manual) 3.2 K/mm3 (1.2-5.4) 03/28/20 07:51 Abs React Lymphs (Man) 0.0 K/mm3 03/28/20 07:51 Monocytes # (Manual) 1.3 K/mm3 (0.0-0.8) H 03/28/20 07:51 Eosinophils # (Manual) 0.0 K/mm3 (0.0-0.4) 03/28/20 07:51 Basophils # (Manual) 0.0 K/mm3 (0.0-0.1) 03/28/20 07:51 Metamyelocytes # 0.0 K/mm3 03/28/20 07:51 Myelocytes # 0.0 K/mm3 03/28/20 07:51 Promyelocytes # 0.0 K/mm3 03/28/20 07:51 Blast Cells # 0.0 K/mm3 03/28/20 07:51 WBC Morphology Not Reportable 03/28/20 07:51 Hypersegmented Neuts Not Reportable 03/28/20 07:51 Hyposegmented Neuts Not Reportable 03/28/20 07:51 Hypogranular Neuts Not Reportable 03/28/20 07:51 Smudge Cells Not Reportable 03/28/20 07:51 Toxic Granulation Not Reportable 03/28/20 07:51 Toxic Vacuolation Few 03/28/20 07:51 Dohle Bodies Not Reportable 03/28/20 07:51 Pelger-Huet Anomaly Not Reportable 03/28/20 07:51 Natan Rods Not Reportable 03/28/20 07:51 Platelet Estimate Consistent w auto 03/28/20 07:51 Clumped Platelets Not Reportable 03/28/20 07:51 Plt Clumps, EDTA Not Reportable 03/28/20 07:51 Large Platelets Few 03/28/20 07:51 Giant Platelets Not Reportable 03/28/20 07:51 Platelet Satelliting Not Reportable 03/28/20 07:51 Plt Morphology Comment Not Reportable 03/28/20 07:51 RBC Morphology Normal 03/28/20 07:51 Dimorphic RBCs Not Reportable 03/28/20 07:51 Polychromasia Not Reportable 03/28/20 07:51 Hypochromasia Not Reportable 03/28/20 07:51 Poikilocytosis Not Reportable 03/28/20 07:51 Anisocytosis Not Reportable 03/28/20 07:51 Microcytosis Not Reportable 03/28/20 07:51 Macrocytosis Not Reportable 03/28/20 07:51 Spherocytes Not Reportable 03/28/20 07:51 Pappenheimer Bodies Not Reportable 03/28/20 07:51 Sickle Cells Not Reportable 03/28/20 07:51 Target Cells Not Reportable 03/28/20 07:51 Tear Drop Cells Not Reportable 03/28/20 07:51 Ovalocytes Not Reportable 03/28/20 07:51 Helmet Cells Not Reportable 03/28/20 07:51 [place] Bodies Not Reportable 03/28/20 07:51 [place] Rings Not Reportable 03/28/20 07:51 [place] Cells Not Reportable 03/28/20 07:51 Bite Cells Not Reportable 03/28/20 07:51 Crenated Cell Not Reportable 03/28/20 07:51 Elliptocytes Not Reportable 03/28/20 07:51 Acanthocytes (Spur) Not Reportable 03/28/20 07:51 Rouleaux Not Reportable 03/28/20 07:51 Hemoglobin C Crystals Not Reportable 03/28/20 07:51 Schistocytes Not Reportable 03/28/20 07:51 Malaria parasites Not Reportable 03/28/20 07:51 [place] Bodies Not Reportable 03/28/20 07:51 Hem Pathologist Commnt No 03/28/20 07:51 PT 11.8 Sec. (12.2-14.9) L 03/13/20 16:24 INR 0.89 (0.87-1.13) 03/13/20 16:24 D-Dimer 652.33 ng/mlDDU (0-234) H 04/02/20 05:32 Sodium 130 mmol/L (137-145) L 04/04/20 17:15 Potassium 3.0 mmol/L (3.6-5.0) L 04/04/20 17:15 Chloride 90.6 mmol/L (98-107) L 04/04/20 17:15 Carbon Dioxide 32 mmol/L (22-30) H 04/04/20 17:15 Anion Gap 10 mmol/L 04/04/20 17:15 BUN 11 mg/dL (7-17) 04/04/20 17:15 Creatinine 0.7 mg/dL (0.6-1.2) 04/04/20 17:15 Estimated GFR > 60 ml/min 04/04/20 17:15 BUN/Creatinine Ratio 16 % 04/04/20 17:15 Glucose 135 mg/dL (65-100) H 04/04/20 17:15 Lactic Acid 1.70 mmol/L (0.7-2.0) 03/13/20 16:24 Calcium 9.5 mg/dL (8.4-10.2) 04/04/20 17:15 Magnesium 1.80 mg/dL (1.7-2.3) 03/13/20 16:24 Total Bilirubin 0.30 mg/dL (0.1-1.2) 03/21/20 05:27 Ferritin 183.1 ng/mL (10.0-200.0) 04/02/20 05:32 Direct Bilirubin < 0.2 mg/dL (0-0.2) 03/16/20 05:18 Indirect Bilirubin 0.1 mg/dL 03/16/20 05:18 AST 12 units/L (5-40) 03/21/20 05:27 ALT 8 units/L (7-56) 03/21/20 05:27 Alkaline Phosphatase 72 units/L (35-129) 03/21/20 05:27 Lactate Dehydrogenase 218 units/L (91-180) H 03/29/20 05:07 Total Creatine Kinase 42 units/L (30-135) 03/13/20 16:24 Troponin T < 0.010 ng/mL (0.00-0.029) 03/13/20 16:24 C-Reactive Protein 2.50 mg/dL (0.00-1.30) H 04/02/20 05:32 NT-Pro-B Natriuret Pep 220.0 pg/mL (0-900) 03/25/20 15:14 Total Protein 7.3 g/dL (6.3-8.2) 03/21/20 05:27 Albumin 3.6 g/dL (3.9-5) L 03/21/20 05:27 Albumin/Globulin Ratio 1.0 % 03/21/20 05:27 Procalcitonin 1.16 ng/mL (<0.15) 03/27/20 18:45 Urine Color Yellow (Yellow) 03/28/20 17:48 Urine Turbidity Clear (Clear) 03/28/20 17:48 Urine pH 6.0 (5.0-7.0) 03/28/20 17:48 Ur Specific [place] 1.036 (1.003-1.030) H 03/28/20 17:48 Urine Protein 30 mg/dl mg/dL (Negative) 03/28/20 17:48 Urine Glucose (UA) >=500 mg/dL (Negative) 03/28/20 17:48 Urine Ketones Tr mg/dL (Negative) 03/28/20 17:48 Urine Blood Neg (Negative) 03/28/20 17:48 Urine Nitrite Neg (Negative) 03/28/20 17:48 Urine Bilirubin Neg (Negative) 03/28/20 17:48 Urine Urobilinogen < 2.0 mg/dL (<2.0) 03/28/20 17:48 Ur Leukocyte Esterase Tr (Negative) 03/28/20 17:48 Urine WBC (Auto) 5.0 /HPF (0.0-6.0) 03/28/20 17:48 Urine RBC (Auto) 2.0 /HPF (0.0-6.0) 03/28/20 17:48 U Epithel Cells (Auto) 2.0 /HPF (0-13.0) 03/28/20 17:48 Urine Mucus Few /HPF 03/28/20 17:48 Vancomycin Trough 5.7 ug/mL (5.0-20.0) 03/28/20 21:20 Coronavirus (PCR) Positive (Negative) A 03/14/20 Unknown SARS-CoV-2 IgG Ab Reactive (NonReactive) A 03/14/20 16:58 [place]/IV: Voiding Method Bedside Commode IV Catheter Type [Left Forearm Peripheral IV ] IV Catheter Type [Right INT / Saline Lock Forearm] IV Catheter Type [Right Wrist] INT / Saline Lock IV Catheter Type [Right Hand] INT / Saline Lock IV Catheter Type [Left Upper INT / Saline Lock arm] IV Catheter Type [Left Peripheral IV Antecubital] Active Medications - Current Medications Current Medications: Generic Name Dose Route Start Last Admin Trade Name Freq PRN Reason Stop Dose Admin Acetaminophen 650 mg 03/13/20 17:21 04/07/20 17:10 Acetaminophen 325 Mg Tab PO 650 mg Q4H PRN Administration Pain MILD(1-3)/Fever >100.5/CARIAS Albuterol 2.5 mg 03/13/20 17:21 Albuterol 2.5 Mg/3 Ml Nebu IH Q4HRT PRN Shortness Of Breath Alprazolam 0.5 mg 03/25/20 20:27 04/02/20 10:47 Alprazolam 0.5 Mg Tab PO 0.5 mg Q8H PRN Administration Anxiety Amitriptyline HCl 10 mg 03/25/20 22:00 04/06/20 21:42 Amitriptyline 10 Mg Tab PO 10 mg QHS SANDY Administration Ascorbic Acid 1,000 mg 03/26/20 10:00 04/07/20 09:31 Ascorbic Acid 500 Mg Tab PO 1,000 mg BID SANDY Administration Benzonatate 100 mg 03/13/20 22:00 04/07/20 13:17 Benzonatate 100 Mg Cap PO 100 mg Q8HR SANDY Administration Duloxetine HCl 60 mg 03/14/20 10:00 04/07/20 09:31 Duloxetine 30 Mg Cap PO 60 mg QDAY SANDY Administration Enoxaparin Sodium 40 mg 03/23/20 22:00 04/06/20 21:42 Enoxaparin 40 Mg/0.4 Ml Inj SUB-Q 40 mg QDAY@2200 SANDY Administration Protocol Ergocalciferol 50,000 unit 03/20/20 10:00 04/03/20 11:36 Ergocalciferol (Vit D2) 50,000 Unit Cap PO 50,000 unit [place] SANDY Administration Famotidine 10 mg 03/29/20 23:00 04/07/20 09:33 Famotidine 20 Mg Tab PO 10 mg BID SANDY Administration Gabapentin 300 mg 03/13/20 20:00 04/07/20 13:17 Gabapentin 300 Mg Cap PO 300 mg TID SANDY Administration Guaifenesin 10 ml 03/13/20 17:24 04/04/20 04:09 Guaifenesin Dm 200/20 Mg Oral Liqd 10 Ml PO 10 ml Q4H PRN Administration Cough Hydroxyzine Pamoate 50 mg 03/13/20 22:00 04/07/20 17:05 Hydroxyzine Pamoate 50 Mg Cap PO 50 mg QID SANDY Administration Lamotrigine 100 mg 03/14/20 10:00 04/07/20 09:33 Lamotrigine 100 Mg Tab PO 100 mg QDAY SANDY Administration [place] Carbonate 150 mg 03/13/20 22:00 04/07/20 09:31 [place] Carbonate 150 Mg Cap PO 150 mg BID SANDY Administration Metoprolol Tartrate 12.5 mg 03/31/20 22:00 04/07/20 09:31 Metoprolol Tartrate 25 Mg Tab PO 12.5 mg BID SANDY Administration Montelukast Sodium 10 mg 03/14/20 10:00 04/07/20 09:32 Montelukast 10 Mg Tab PO 10 mg DAILY SANDY Administration Ondansetron HCl 4 mg 03/13/20 17:21 04/05/20 10:10 Ondansetron 4 Mg/2 Ml Inj IV 4 mg Q8H PRN Administration Nausea And Vomiting Ondansetron HCl 4 mg 04/06/20 13:00 04/06/20 23:20 Ondansetron 4 Mg Odt Tab PO 4 mg Q6H PRN Administration Nausea Oxybutynin Chloride 5 mg 03/13/20 20:00 04/07/20 13:17 Oxybutynin 5 Mg Tab PO 5 mg TID SANDY Administration Oxycodone/Acetaminophen 1 tab 03/30/20 08:06 04/07/20 09:32 Oxycodone /Acetaminophen 5-325mg Tab PO 1 tab Q6H PRN Administration Pain, Moderate (4-6) Phenol 1 spray 03/25/20 20:05 03/26/20 00:27 Phenol 1.4% 177 Ml Bottle MM 1 spray PRN PRN Administration Sore Throat Sodium Chloride 10 ml 03/13/20 22:00 04/07/20 09:34 Sodium Chloride 0.9% 10 Ml Flush Syringe IV 10 ml BID SANDY Administration Sodium Chloride 10 ml 03/13/20 17:21 Sodium Chloride 0.9% 10 Ml Flush Syringe IV PRN PRN LINE FLUSH Sodium Chloride 2 spray 04/06/20 10:00 04/07/20 17:05 Sodium Chloride Nasal [place] 44ml NS 2 spray QID SANDY Administration Trazodone HCl 100 mg 03/13/20 22:00 04/06/20 21:42 Trazodone 100 Mg Tab PO 100 mg QHS SANDY Administration Zinc Sulfate 220 mg 03/26/20 10:00 04/07/20 09:32 Zinc Sulfate 220 Mg Cap PO 220 mg BID SANDY Administration Nutrition/Malnutrition Assess - Dietary Evaluation Nutrition/Malnutrition Findings: Nutrition Notes Start: 03/14/20 15:39 Freq: Status: Active Protocol: Document 04/05/20 13:55 LM (Rec: 04/05/20 14:37 LM [id number]) Nutrition Notes Initial or Follow up Reassessment Current Diagnosis COPD,Sepsis,Hypertension, Hyperlipidemia Other Pertinent Diagnosis Pneu, COVID-19 (+), GERD Current Diet Cardiac Labs/Tests Na 130 K 3 Pertinent Medications Vitamin C Zinc Zofran Pepcid Height 5 ft 1 in Weight 58.9 kg [place] Body Weight (kg) 47.72 BMI 24.5 Weight change and time frame Wt change noted Weight Status Appropriate Subjective/Other Information Pt did not answer phone. Pt has 100% intakes for breakfast and lunch. Percent of energy/protein needs met: 100%/100% Burn Absent Trauma Absent Current % PO Good (75-100%) Minimum of two criteria No #1 Nutrition Diagnosis Inadequate oral intake As Evidenced by Signs and Symptoms pt eating 100% Diagnosis Progress(for reassessment Improved documentation) Is patient on ventilator? No Is Patient Ambulatory and/or Out of Bed Yes REE-([facility]-ambulatory/OOB) [ 1386.294 [id number]] Calculation Used for Recommendations [facility] Additional Notes Pro needs 1-1.2g/k-76g/ day Fluid needs 1ml/kcal Nutrition Intervention Change Diet Order: Continue current diet order Add Supplement/Snack (indicate name/kcal Glucerna daily /protein ) Provides kCal: 220 Provides Protein (gm) 10 Goal #1 PO intake of meals plus ONS to meet at least 75% energy and pro needs Anticipated Discharge Needs: Cardiac Diet with ONS PRN Follow-Up By: 04/12/20 Additional Comments F/U for stable intakes
[2020-04-07] MEDS: traZODone 100 MG TAB PO SCH (22:09)
[2020-04-07] MEDS: AMITRIPTYLINE 10 MG TAB PO SCH (22:09)
[2020-04-07] MEDS: ENOXAPARIN 40 MG/0.4 ML INJ SUB-Q SCH (22:09)
[2020-04-08] MEDS: METOPROLOL TARTRATE 25 MG TAB PO SCH ×3 (05:37→22:00)
[2020-04-08] MEDS: BENZONATATE 100 MG CAP PO SCH ×3 (05:55→22:00)
[2020-04-08 06:23] LABS: Basophils # (Auto) 0.1 K/mm3 (0.0-0.1); Basophils % (Auto) 0.8 % (0.0-1.8); Eosinophils # (Auto) 0.5 K/mm3 (0.0-0.4); Eosinophils % (Auto) 3.9 % (0.0-4.3); Hematocrit 35.7 % (30.3-42.9); Hemoglobin 11.7 gm/dl (10.1-14.3); Lymphocytes # (Auto) 1.4 K/mm3 (1.2-5.4); Lymphocytes % (Auto) 11.4 % (13.4-35.0); Mean Corpuscular HGB Conc 33 % (30-34); Mean Corpuscular Volume 82 fl (79-97); Monocytes # (Auto) 0.8 K/mm3 (0.0-0.8); Monocytes % (Auto) 6.2 % (0.0-7.3); Platelet Count 311 K/mm3 (140-440); Red Blood Count 4.37 M/mm3 (3.65-5.03); Red Cell Distribution Width 16.5 % (13.2-15.2)
[2020-04-08 06:43] LABS: Blood Urea Nitrogen 8 mg/dL (7-17); Calcium 9.6 mg/dL (8.4-10.2); Hemolysis Index 9
[2020-04-08 06:56] LABS: BUN/Creatinine Ratio 13
[2020-04-08] MEDS: GABAPENTIN 300 MG CAP PO SCH ×3 (08:00→20:00)
[2020-04-08] MEDS: ASCORBIC ACID 500 MG TAB PO SCH ×2 (10:11→22:42)
[2020-04-08] MEDS: DULoxetine 30 MG CAP PO SCH ×2 (10:11→23:41)
[2020-04-08] MEDS: FAMOTIDINE 20 MG TAB PO SCH ×2 (10:12→22:00)
[2020-04-08] MEDS: MONTELUKAST 10 MG TAB PO SCH (10:14)
[2020-04-08] MEDS: lamoTRIgine 100 MG TAB PO SCH (10:14)
[2020-04-08] MEDS: ZINC SULFATE 220 MG CAP PO SCH ×2 (10:14→22:00)
[2020-04-08] MEDS: OXYBUTYNIN 5 MG TAB PO SCH ×3 (10:15→20:00)
[2020-04-08] MEDS: SODIUM CHLORIDE NASAL SPRAY 44ML NS SCH ×4 (10:15→22:00)
[2020-04-08] MEDS: LITHIUM CARBONATE 150 MG CAP PO SCH ×2 (10:16→22:00)
--- NOTE | 2020-04-08 11:48 | Progress Note ---
Assessment and Plan 64 y/o female with acute on chronic respiratory failure secondary COVID 19 pneumonia. 1. steroids are now off. Continue to wean FiO2 for sats >88% 2. Ordered nasal saline to help with moisture and nose bleeds secondary to prolonged high flow. 3. Prone as tolerated during the day and sleep prone at night. Patient has been noncompliant with this. Did not prone again last night. 4. Guarded prognosis given prolonged high levels of flow and oxygen requirements. However patient has improved significantly. 5. Now that stable on 2-3 liters, suggest walk test to determine oxygen needs with ambulation and if she can maintain adequate sats on 2-3 liters would have no objection with discharge. Subjective Date of service: 04/08/20 Principal diagnosis: COVID/COPD Interval history: No acute events. Down to 2.5 liters NC. Objective Vital Signs - 12hr 04/08/20 04/08/20 04/08/20 02:00 04:06 10:11 Temperature 97.7 F Pulse Rate 117 H Respiratory 20 Rate Blood Pressure 118/61 O2 Sat by Pulse 96 91 93 Oximetry Constitutional: alert, other (critically ill on HFNC) Eyes: non-icteric Neck: supple Effort: mildly labored Ascultation: Bilateral: clear, wheezes Cardiovascular: other (tachy, RR; no mrg) Gastrointestinal: normoactive bowel sounds, soft, non-tender Integumentary: normal Extremities: no cyanosis, no edema, pink and warm Neurologic: normal mental status, non-focal exam, CN II-XII normal Psychiatric: anxious, other (very fidgety) CBC and BMP: 04/08/20 04:51 04/08/20 04:51 ABG, PT/INR, D-dimer: PT/INR, D-dimer PT 11.8 Sec. (12.2-14.9) L 03/13/20 16:24 INR 0.89 (0.87-1.13) 03/13/20 16:24 D-Dimer 652.33 ng/mlDDU (0-234) H 04/02/20 05:32 Abnormal lab findings: Abnormal Labs 03/13/20 03/13/20 03/13/20 16:24 16:24 16:24 WBC MCH RDW 16.8 H Plt Count Lymph % (Auto) 8.5 L [place] % (Auto) Lymph # (Auto) 0.6 L [place] # (Auto) Eos # (Auto) Seg Neutrophils % 84.9 H Seg Neuts % (Manual) Lymphocytes % (Manual) Seg Neutrophils # Seg Neutrophils # Man Lymphocytes # (Manual) Monocytes # (Manual) PT 11.8 L D-Dimer 234.66 H Sodium 135 L Potassium 3.1 L Chloride Carbon Dioxide BUN Glucose 174 H Ferritin Lactate Dehydrogenase 277 H C-Reactive Protein 8.00 H Albumin 3.7 L Ur Specific [place] Coronavirus (PCR) SARS-CoV-2 IgG Ab 03/13/20 03/14/20 03/14/20 16:24 08:02 08:02 WBC 3.9 L MCH RDW 16.3 H Plt Count Lymph % (Auto) [place] % (Auto) 9.5 H Lymph # (Auto) 0.7 L [place] # (Auto) Eos # (Auto) Seg Neutrophils % 72.9 H Seg Neuts % (Manual) Lymphocytes % (Manual) Seg Neutrophils # Seg Neutrophils # Man Lymphocytes # (Manual) Monocytes # (Manual) PT D-Dimer Sodium Potassium Chloride 107.4 H Carbon Dioxide BUN Glucose 174 H 142 H Ferritin Lactate Dehydrogenase 267 H C-Reactive Protein 8.10 H Albumin Ur Specific [place] Coronavirus (PCR) SARS-CoV-2 IgG Ab 03/14/20 03/14/20 03/14/20 16:58 16:58 Unknown WBC MCH RDW Plt Count Lymph % (Auto) [place] % (Auto) Lymph # (Auto) [place] # (Auto) Eos # (Auto) Seg Neutrophils % Seg Neuts % (Manual) Lymphocytes % (Manual) Seg Neutrophils # Seg Neutrophils # Man Lymphocytes # (Manual) Monocytes # (Manual) PT D-Dimer Sodium Potassium Chloride Carbon Dioxide BUN Glucose Ferritin Lactate Dehydrogenase 277 H C-Reactive Protein 2.60 H Albumin Ur Specific [place] Coronavirus (PCR) Positive A SARS-CoV-2 IgG Ab Reactive A 03/16/20 03/16/20 03/16/20 05:18 05:18 10:34 WBC MCH RDW 16.4 H Plt Count Lymph % (Auto) [place] % (Auto) 10.0 H Lymph # (Auto) [place] # (Auto) Eos # (Auto) Seg Neutrophils % Seg Neuts % (Manual) Lymphocytes % (Manual) Seg Neutrophils # Seg Neutrophils # Man Lymphocytes # (Manual) Monocytes # (Manual) PT D-Dimer 278.32 H Sodium Potassium 3.1 L Chloride Carbon Dioxide BUN Glucose Ferritin Lactate Dehydrogenase C-Reactive Protein Albumin 3.4 L Ur Specific [place] Coronavirus (PCR) SARS-CoV-2 IgG Ab 03/16/20 03/17/20 03/18/20 10:34 21:24 05:58 WBC 14.8 H MCH RDW 15.8 H Plt Count Lymph % (Auto) 11.5 L [place] % (Auto) Lymph # (Auto) [place] # (Auto) 1.0 H Eos # (Auto) Seg Neutrophils % 81.3 H Seg Neuts % (Manual) Lymphocytes % (Manual) Seg Neutrophils # 12.0 H Seg Neutrophils # Man Lymphocytes # (Manual) Monocytes # (Manual) PT D-Dimer Sodium Potassium Chloride Carbon Dioxide BUN Glucose 182 H Ferritin Lactate Dehydrogenase 268 H 268 H C-Reactive Protein 2.10 H 4.90 H Albumin Ur Specific [place] Coronavirus (PCR) SARS-CoV-2 IgG Ab 03/18/20 03/21/20 03/21/20 05:58 05:27 05:27 WBC 14.1 H MCH 27 L RDW 16.1 H Plt Count 513 H Lymph % (Auto) 11.5 L [place] % (Auto) 7.9 H Lymph # (Auto) [place] # (Auto) 1.1 H Eos # (Auto) Seg Neutrophils % 78.4 H Seg Neuts % (Manual) Lymphocytes % (Manual) Seg Neutrophils # 11.1 H Seg Neutrophils # Man Lymphocytes # (Manual) Monocytes # (Manual) PT D-Dimer Sodium Potassium 2.9 L* Chloride Carbon Dioxide 18 L BUN Glucose Ferritin Lactate Dehydrogenase C-Reactive Protein Albumin 3.6 L 3.6 L Ur Specific [place] Coronavirus (PCR) SARS-CoV-2 IgG Ab 03/22/20 03/22/20 03/22/20 15:45 15:45 15:45 WBC MCH RDW Plt Count Lymph % (Auto) [place] % (Auto) Lymph # (Auto) [place] # (Auto) Eos # (Auto) Seg Neutrophils % Seg Neuts % (Manual) Lymphocytes % (Manual) Seg Neutrophils # Seg Neutrophils # Man Lymphocytes # (Manual) Monocytes # (Manual) PT D-Dimer 274.02 H Sodium Potassium Chloride Carbon Dioxide BUN Glucose Ferritin Lactate Dehydrogenase 259 H C-Reactive Protein 7.60 H Albumin Ur Specific [place] Coronavirus (PCR) SARS-CoV-2 IgG Ab 03/26/20 03/26/20 03/27/20 05:45 05:45 08:21 WBC 34.9 H MCH RDW 15.9 H Plt Count 579 H Lymph % (Auto) [place] % (Auto) Lymph # (Auto) [place] # (Auto) Eos # (Auto) Seg Neutrophils % Seg Neuts % (Manual) Lymphocytes % (Manual) Seg Neutrophils # Seg Neutrophils # Man Lymphocytes # (Manual) Monocytes # (Manual) PT D-Dimer Sodium 130 L 130 L Potassium Chloride 86.0 L 88.5 L Carbon Dioxide 35 H BUN 22 H Glucose 227 H 326 H Ferritin Lactate Dehydrogenase 213 H C-Reactive Protein 34.50 H Albumin Ur Specific [place] Coronavirus (PCR) SARS-CoV-2 IgG Ab 03/27/20 03/27/20 03/27/20 08:21 18:45 18:45 WBC 42.1 H* MCH RDW 16.3 H Plt Count Lymph % (Auto) [place] % (Auto) Lymph # (Auto) [place] # (Auto) Eos # (Auto) Seg Neutrophils % Seg Neuts % (Manual) 91.0 H Lymphocytes % (Manual) 2.0 L Seg Neutrophils # Seg Neutrophils # Man 38.3 H Lymphocytes # (Manual) 0.8 L Monocytes # (Manual) 1.7 H PT D-Dimer Sodium Potassium Chloride Carbon Dioxide BUN Glucose Ferritin 400.5 H Lactate Dehydrogenase C-Reactive Protein 49.70 H Albumin Ur Specific [place] Coronavirus (PCR) SARS-CoV-2 IgG Ab 03/28/20 03/28/20 03/28/20 07:51 07:51 07:51 WBC 32.2 H MCH 27 L RDW 16.3 H Plt Count Lymph % (Auto) [place] % (Auto) Lymph # (Auto) [place] # (Auto) Eos # (Auto) Seg Neutrophils % Seg Neuts % (Manual) 86.0 H Lymphocytes % (Manual) 10.0 L Seg Neutrophils # Seg Neutrophils # Man 27.7 H Lymphocytes # (Manual) Monocytes # (Manual) 1.3 H PT D-Dimer 1182.25 H Sodium Potassium Chloride Carbon Dioxide BUN Glucose Ferritin 514.4 H Lactate Dehydrogenase C-Reactive Protein Albumin Ur Specific [place] Coronavirus (PCR) SARS-CoV-2 IgG Ab 03/28/20 03/28/20 03/29/20 07:51 17:48 05:07 WBC MCH RDW Plt Count Lymph % (Auto) [place] % (Auto) Lymph # (Auto) [place] # (Auto) Eos # (Auto) Seg Neutrophils % Seg Neuts % (Manual) Lymphocytes % (Manual) Seg Neutrophils # Seg Neutrophils # Man Lymphocytes # (Manual) Monocytes # (Manual) PT D-Dimer Sodium 136 L Potassium Chloride 93.0 L Carbon Dioxide 35 H BUN Glucose 243 H Ferritin Lactate Dehydrogenase 218 H C-Reactive Protein 18.00 H Albumin Ur Specific [place] 1.036 H Coronavirus (PCR) SARS-CoV-2 IgG Ab 03/29/20 03/29/20 03/30/20 05:07 14:39 05:09 WBC 22.0 H 11.4 H MCH 27 L 27 L RDW 16.0 H 16.1 H Plt Count Lymph % (Auto) [place] % (Auto) Lymph # (Auto) [place] # (Auto) Eos # (Auto) Seg Neutrophils % Seg Neuts % (Manual) Lymphocytes % (Manual) Seg Neutrophils # Seg Neutrophils # Man Lymphocytes # (Manual) Monocytes # (Manual) PT D-Dimer Sodium 131 L Potassium Chloride 91.7 L Carbon Dioxide 31 H BUN Glucose 328 H Ferritin Lactate Dehydrogenase C-Reactive Protein Albumin Ur Specific [place] Coronavirus (PCR) SARS-CoV-2 IgG Ab 03/30/20 03/31/20 03/31/20 05:09 05:43 05:43 WBC MCH RDW Plt Count Lymph % (Auto) [place] % (Auto) Lymph # (Auto) [place] # (Auto) Eos # (Auto) Seg Neutrophils % Seg Neuts % (Manual) Lymphocytes % (Manual) Seg Neutrophils # Seg Neutrophils # Man Lymphocytes # (Manual) Monocytes # (Manual) PT D-Dimer 734.03 H Sodium 136 L Potassium Chloride 96.2 L Carbon Dioxide BUN Glucose 297 H Ferritin 404.1 H Lactate Dehydrogenase C-Reactive Protein Albumin Ur Specific [place] Coronavirus (PCR) SARS-CoV-2 IgG Ab 03/31/20 04/02/20 04/02/20 05:43 05:32 05:32 WBC MCH RDW Plt Count Lymph % (Auto) [place] % (Auto) Lymph # (Auto) [place] # (Auto) Eos # (Auto) Seg Neutrophils % Seg Neuts % (Manual) Lymphocytes % (Manual) Seg Neutrophils # Seg Neutrophils # Man Lymphocytes # (Manual) Monocytes # (Manual) PT D-Dimer 652.33 H Sodium Potassium Chloride Carbon Dioxide BUN Glucose Ferritin Lactate Dehydrogenase C-Reactive Protein 3.10 H 2.50 H Albumin Ur Specific [place] Coronavirus (PCR) SARS-CoV-2 IgG Ab 04/04/20 04/08/20 04/08/20 17:15 04:51 04:51 WBC 12.1 H MCH 27 L RDW 16.5 H Plt Count Lymph % (Auto) 11.4 L [place] % (Auto) Lymph # (Auto) [place] # (Auto) Eos # (Auto) 0.5 H Seg Neutrophils % 77.7 H Seg Neuts % (Manual) Lymphocytes % (Manual) Seg Neutrophils # 9.4 H Seg Neutrophils # Man Lymphocytes # (Manual) Monocytes # (Manual) PT D-Dimer Sodium 130 L 133 L Potassium 3.0 L 3.4 L Chloride 90.6 L 93.4 L Carbon Dioxide 32 H 31 H BUN Glucose 135 H 114 H Ferritin Lactate Dehydrogenase C-Reactive Protein Albumin Ur Specific [place] Coronavirus (PCR) SARS-CoV-2 IgG Ab
--- NOTE | 2020-04-08 19:05 | Progress Note ---
Assessment and Plan Assessment and Plan - Patient Problems (1) Sepsis Current Visit: Yes Status: Acute Plan to address problem: Continue IV antibiotics (2) Acute hypoxemic respiratory failure Current Visit: Yes Status: Acute Plan to address problem: Supplemental oxygen, nebulizer therapy, pulse oximetry, prone position while in bed, pulmonary toilet. On high flow oxygen Patient on 40 L Steroids increased by Dr Alva (3) Pneumonia Current Visit: Yes Status: Acute Qualifiers: Laterality: bilateral Plan to address problem: Pneumonia protocol: Chest x-ray, CBC, CMP, nebulizer therapy, pulse oximetry, IV antibiotic therapy, blood culture, pulmonary toilet. (4) COVID-19 virus infection Current Visit: Yes Status: Acute Plan to address problem: Coronavirus positive Continue dexamethasone 6 mg IV/p.o. daily for 10 days Continue remdesivir total 5 days Continue cefepime every 12 hours Check MRSA PCR pending Monitor liver function test on remdesivir Sinus Covid 2 IgG is positive patient is not a candidate for Covid convalescent plasma Patient is not a candidate for Covid positive convalescent plasma Patient on 40 L high flow oxygen Weaning in progress Therapy (5) COPD (chronic obstructive pulmonary disease) Current Visit: Yes Status: Acute Qualifiers: Chronic bronchitis type: unspecified Plan to address problem: IV steroid therapy, supportive care, supplemental oxygen, IV antibiotic therapy. (6) GERD (gastroesophageal reflux disease) Current Visit: Yes Status: Acute Qualifiers: Esophagitis presence: without esophagitis Qualified Code(s): K21.9 - Gastro-esophageal reflux disease without esophagitis Plan to address problem: PPI therapy, supportive care (7) Hypertension Current Visit: Yes Status: Acute Qualifiers: Hypertension type: essential hypertension Qualified Code(s): I10 - Essen tial (primary) hypertension Plan to address problem: Monitor blood pressure every shift, continue medical management. (8) Hyperlipidemia Current Visit: Yes Status: Acute Qualifiers: Hyperlipidemia type: mixed hyperlipidemia Qualified Code(s): E78.2 - Mixed hyperlipidemia Plan to address problem: Lipid panel, statin therapy, balanced diet, low-cholesterol diet. (9) DVT prophylaxis Current Visit: Yes Status: Acute Plan to address problem: SCD to bilateral lower extremities while in bed, prophylactic anticoagulation (10) hypokalemia Supplemented Subjective Date of service: 04/08/20 Principal diagnosis: COVID/COPD Interval history: 64 YO Female with COPD, GERD, HTN, HLD, Anxiety, OA, Asthma Mild Intermittent, presents to ED for evaluation. Patient states that she has "not been feeling well" over the past 5 days with persistently worsening symptoms over the same timeframe. Patient states that she has experienced subjective fever, fatigue, muscle aches, generalized weakness, malaise, dry cough, decreased exercise tolerance, loss of sense of smell, loss of sense of taste, shortness of breath, nausea, multiple loose stools, and diminished oral intake. PT transported to [facility] via private vehicle for further care and evaluation of the aforementioned symptoms. The patient was seen and evaluated in the emergency department. All lab and imaging studies reviewed. The patient was found to be tachypneic with respiratory rate in the 30s as well as tachycardic with a pulse rate of 121, and a temperature of 101.9 F. Patient also found to have a pulse oximetry of 86% with exertion while on room air which is consistent with acute hypoxemic respiratory failure. The patient was also found to have a chest x-ray with bilateral pneumonia as well as as well as sepsis. Patient admitted to medical floor and initiated sepsis protocol. Patient also initiated on coronavirus protocol. Patient denies chills, chest pain, palpitations, productive cough, skin rash, recent ill contacts, or known exposure to COVID-19. Prior admission on 01/07/2020 reviewed. All medication listed at time of admission has been reconciled. Advanced care planning conducted in ED. Interval history: 64 YO Female HD #2 with acute hypoxemic respiratory failure, bilateral pneumonia, sepsis, Covid PCR pending, COPD, GERD, HTN, HLD, Anxiety, OA, Asthma Mild Intermittent. Patient resting comfortably in bed. Patient acknowledges improvement in shortness of breath. Patient denies pain. Day 3 03/15/2020\\ Patient on high flow oxygen Continue IV Decadron and remdesivir Day #4 03/16/2020 Patient on high flow oxygen Continue IV Decadron and IV remdesivir Day#5 03/17/2020 Continue IV Decadron and IV remdesivir Patient on 10 L nasal cannula oxygen Day #6 03/18/2020 Patient on 10 L nasal cannula oxygen 03/19/2020 Day #7 Patient on high flow oxygen Day # 8 03/20/20 Patient on high flow oxygen 12/21/20 On High flow oxygen\\ 03/22/2020 Patient on high flow oxygen from 40 L Patient does not keep her oxygen consistently as the nursing staff and respiratory therapist to decrease oxygen levels 03/23/2020 Patient still on high flow oxygen Alert and oriented and cheerful 03/24/20 Patient still on high flow oxygen 04/08/2020 Patient on 6 L nasal cannula oxygen which is a lot better Objective - Constitutional Vitals: Vital Signs - 12hr 04/08/20 04/08/20 04/08/20 10:11 11:34 17:34 Temperature 98.5 F 97.5 F L Pulse Rate 121 H 113 H Respiratory 24 22 Rate Blood Pressure 101/42 111/66 O2 Sat by Pulse 93 86 91 Oximetry General appearance: Present: no acute distress, well-nourished - EENT Eyes: PERRL, EOM intact ENT: hearing intact, clear oral mucosa Ears: bilateral: normal - Neck Neck: supple, normal ROM - Respiratory Respiratory effort: normal Respiratory: bilateral: CTA - Breasts Breasts: normal - Cardiovascular Heart rate: 78 Rhythm: regular Heart Sounds: Present: S1 & S2. Absent: gallop, rub Extremities: pulses intact, No edema, normal color, Full ROM - Gastrointestinal General gastrointestinal: Present: soft, non-tender, non-distended, normal bowel sounds - Genitourinary Female genitourinary: normal - Integumentary Integumentary: clear, warm, dry - Musculoskeletal Musculoskeletal: 1, strength equal bilaterally - Neurologic Neurologic: moves all extremities - Psychiatric Psychiatric: memory intact, appropriate mood/affect, intact judgment & insight - Allied health notes Allied health notes reviewed: nursing, case management - Labs CBC & Chem 7: 04/08/20 04:51 04/08/20 04:51 Labs: Abnormal lab results 04/08/20 04/08/20 Range/Units 04:51 04:51 WBC 12.1 H (4.5-11.0) K/mm3 MCH 27 L (28-32) pg RDW 16.5 H (13.2-15.2) % Lymph % (Auto) 11.4 L (13.4-35.0) % Eos # (Auto) 0.5 H (0.0-0.4) K/mm3 Seg Neutrophils % 77.7 H (40.0-70.0) % Seg Neutrophils # 9.4 H (1.8-7.7) K/mm3 Sodium 133 L (137-145) mmol/L Potassium 3.4 L (3.6-5.0) mmol/L Chloride 93.4 L (98-107) mmol/L Carbon Dioxide 31 H (22-30) mmol/L Glucose 114 H (65-100) mg/dL HEART Score - HEART Score Troponin: Troponin T < 0.010 ng/mL (0.00-0.029) 03/13/20 16:24
[2020-04-08] MEDS: ALPRAZolam 0.5 MG TAB PO PRN (21:00)
[2020-04-08] MEDS: ACETAMINOPHEN 325 MG TAB PO PRN (21:05)
[2020-04-08] MEDS: traZODone 100 MG TAB PO SCH (22:00)
[2020-04-08] MEDS: AMITRIPTYLINE 10 MG TAB PO SCH (22:00)
[2020-04-08] MEDS: ENOXAPARIN 40 MG/0.4 ML INJ SUB-Q SCH (22:00)
[2020-04-09] MEDS: BENZONATATE 100 MG CAP PO SCH ×2 (06:00→22:46)
[2020-04-09] MEDS: GABAPENTIN 300 MG CAP PO SCH ×2 (10:18→22:48)
[2020-04-09] MEDS: OXYBUTYNIN 5 MG TAB PO SCH ×2 (10:18→22:47)
[2020-04-09] MEDS: lamoTRIgine 100 MG TAB PO SCH (10:23)
[2020-04-09] MEDS: ZINC SULFATE 220 MG CAP PO SCH ×2 (10:23→22:46)
[2020-04-09] MEDS: FAMOTIDINE 20 MG TAB PO SCH ×2 (10:23→22:44)
[2020-04-09] MEDS: DULoxetine 30 MG CAP PO SCH (10:23)
[2020-04-09] MEDS: MONTELUKAST 10 MG TAB PO SCH (10:24)
[2020-04-09] MEDS: ASCORBIC ACID 500 MG TAB PO SCH ×2 (10:24→22:45)
[2020-04-09] MEDS: LITHIUM CARBONATE 150 MG CAP PO SCH ×2 (10:25→22:00)
[2020-04-09] MEDS: SODIUM CHLORIDE NASAL SPRAY 44ML NS SCH ×2 (10:26→22:00)
[2020-04-09] MEDS: METOPROLOL TARTRATE 25 MG TAB PO SCH ×2 (10:41→22:53)
--- NOTE | 2020-04-09 12:11 | Progress Note ---
Assessment and Plan - Patient Problems (1) Acute hypoxemic respiratory failure Current Visit: Yes Status: Acute (2) Hyponatremia Current Visit: Yes Status: Acute (3) Hypoxia Current Visit: Yes Status: Acute (4) Pneumonia Current Visit: Yes Status: Acute Qualifiers: Laterality: bilateral (5) Pneumonia due to COVID-19 virus Current Visit: Yes Status: Acute (6) Shortness of breath Current Visit: Yes Status: Acute (7) COPD (chronic obstructive pulmonary disease) Current Visit: Yes Status: Chronic Qualifiers: Chronic bronchitis type: unspecified Subjective Principal diagnosis: COVID/COPD Interval history: fels better Objective Vital Signs - 12hr 04/09/20 04/09/20 04/09/20 04:20 08:50 10:41 Temperature 97.7 F Pulse Rate 115 H 117 H Respiratory 20 Rate Blood Pressure 95/50 126/68 O2 Sat by Pulse 89 90 Oximetry Constitutional: alert, other (critically ill on HFNC) Eyes: non-icteric Neck: supple Effort: mildly labored Ascultation: Bilateral: clear, diminished breath sounds Cardiovascular: other (tachy, RR; no mrg) Gastrointestinal: normoactive bowel sounds, soft, non-tender Integumentary: normal Extremities: no cyanosis, no edema, pink and warm Neurologic: normal mental status, non-focal exam, CN II-XII normal Psychiatric: mood appropriate, other (very fidgety) CBC and BMP: 04/08/20 04:51 04/08/20 04:51 ABG, PT/INR, D-dimer: PT/INR, D-dimer PT 11.8 Sec. (12.2-14.9) L 03/13/20 16:24 INR 0.89 (0.87-1.13) 03/13/20 16:24 D-Dimer 652.33 ng/mlDDU (0-234) H 04/02/20 05:32 Abnormal lab findings: Abnormal Labs 03/13/20 03/13/20 03/13/20 16:24 16:24 16:24 WBC MCH RDW 16.8 H Plt Count Lymph % (Auto) 8.5 L [place] % (Auto) Lymph # (Auto) 0.6 L [place] # (Auto) Eos # (Auto) Seg Neutrophils % 84.9 H Seg Neuts % (Manual) Lymphocytes % (Manual) Seg Neutrophils # Seg Neutrophils # Man Lymphocytes # (Manual) Monocytes # (Manual) PT 11.8 L D-Dimer 234.66 H Sodium 135 L Potassium 3.1 L Chloride Carbon Dioxide BUN Glucose 174 H Ferritin Lactate Dehydrogenase 277 H C-Reactive Protein 8.00 H Albumin 3.7 L Ur Specific [place] Coronavirus (PCR) SARS-CoV-2 IgG Ab 03/13/20 03/14/20 03/14/20 16:24 08:02 08:02 WBC 3.9 L MCH RDW 16.3 H Plt Count Lymph % (Auto) [place] % (Auto) 9.5 H Lymph # (Auto) 0.7 L [place] # (Auto) Eos # (Auto) Seg Neutrophils % 72.9 H Seg Neuts % (Manual) Lymphocytes % (Manual) Seg Neutrophils # Seg Neutrophils # Man Lymphocytes # (Manual) Monocytes # (Manual) PT D-Dimer Sodium Potassium Chloride 107.4 H Carbon Dioxide BUN Glucose 174 H 142 H Ferritin Lactate Dehydrogenase 267 H C-Reactive Protein 8.10 H Albumin Ur Specific [place] Coronavirus (PCR) SARS-CoV-2 IgG Ab 03/14/20 03/14/20 03/14/20 16:58 16:58 Unknown WBC MCH RDW Plt Count Lymph % (Auto) [place] % (Auto) Lymph # (Auto) [place] # (Auto) Eos # (Auto) Seg Neutrophils % Seg Neuts % (Manual) Lymphocytes % (Manual) Seg Neutrophils # Seg Neutrophils # Man Lymphocytes # (Manual) Monocytes # (Manual) PT D-Dimer Sodium Potassium Chloride Carbon Dioxide BUN Glucose Ferritin Lactate Dehydrogenase 277 H C-Reactive Protein 2.60 H Albumin Ur Specific [place] Coronavirus (PCR) Positive A SARS-CoV-2 IgG Ab Reactive A 03/16/20 03/16/20 03/16/20 05:18 05:18 10:34 WBC MCH RDW 16.4 H Plt Count Lymph % (Auto) [place] % (Auto) 10.0 H Lymph # (Auto) [place] # (Auto) Eos # (Auto) Seg Neutrophils % Seg Neuts % (Manual) Lymphocytes % (Manual) Seg Neutrophils # Seg Neutrophils # Man Lymphocytes # (Manual) Monocytes # (Manual) PT D-Dimer 278.32 H Sodium Potassium 3.1 L Chloride Carbon Dioxide BUN Glucose Ferritin Lactate Dehydrogenase C-Reactive Protein Albumin 3.4 L Ur Specific [place] Coronavirus (PCR) SARS-CoV-2 IgG Ab 03/16/20 03/17/20 03/18/20 10:34 21:24 05:58 WBC 14.8 H MCH RDW 15.8 H Plt Count Lymph % (Auto) 11.5 L [place] % (Auto) Lymph # (Auto) [place] # (Auto) 1.0 H Eos # (Auto) Seg Neutrophils % 81.3 H Seg Neuts % (Manual) Lymphocytes % (Manual) Seg Neutrophils # 12.0 H Seg Neutrophils # Man Lymphocytes # (Manual) Monocytes # (Manual) PT D-Dimer Sodium Potassium Chloride Carbon Dioxide BUN Glucose 182 H Ferritin Lactate Dehydrogenase 268 H 268 H C-Reactive Protein 2.10 H 4.90 H Albumin Ur Specific [place] Coronavirus (PCR) SARS-CoV-2 IgG Ab 03/18/20 03/21/20 03/21/20 05:58 05:27 05:27 WBC 14.1 H MCH 27 L RDW 16.1 H Plt Count 513 H Lymph % (Auto) 11.5 L [place] % (Auto) 7.9 H Lymph # (Auto) [place] # (Auto) 1.1 H Eos # (Auto) Seg Neutrophils % 78.4 H Seg Neuts % (Manual) Lymphocytes % (Manual) Seg Neutrophils # 11.1 H Seg Neutrophils # Man Lymphocytes # (Manual) Monocytes # (Manual) PT D-Dimer Sodium Potassium 2.9 L* Chloride Carbon Dioxide 18 L BUN Glucose Ferritin Lactate Dehydrogenase C-Reactive Protein Albumin 3.6 L 3.6 L Ur Specific [place] Coronavirus (PCR) SARS-CoV-2 IgG Ab 03/22/20 03/22/20 03/22/20 15:45 15:45 15:45 WBC MCH RDW Plt Count Lymph % (Auto) [place] % (Auto) Lymph # (Auto) [place] # (Auto) Eos # (Auto) Seg Neutrophils % Seg Neuts % (Manual) Lymphocytes % (Manual) Seg Neutrophils # Seg Neutrophils # Man Lymphocytes # (Manual) Monocytes # (Manual) PT D-Dimer 274.02 H Sodium Potassium Chloride Carbon Dioxide BUN Glucose Ferritin Lactate Dehydrogenase 259 H C-Reactive Protein 7.60 H Albumin Ur Specific [place] Coronavirus (PCR) SARS-CoV-2 IgG Ab 03/26/20 03/26/20 03/27/20 05:45 05:45 08:21 WBC 34.9 H MCH RDW 15.9 H Plt Count 579 H Lymph % (Auto) [place] % (Auto) Lymph # (Auto) [place] # (Auto) Eos # (Auto) Seg Neutrophils % Seg Neuts % (Manual) Lymphocytes % (Manual) Seg Neutrophils # Seg Neutrophils # Man Lymphocytes # (Manual) Monocytes # (Manual) PT D-Dimer Sodium 130 L 130 L Potassium Chloride 86.0 L 88.5 L Carbon Dioxide 35 H BUN 22 H Glucose 227 H 326 H Ferritin Lactate Dehydrogenase 213 H C-Reactive Protein 34.50 H Albumin Ur Specific [place] Coronavirus (PCR) SARS-CoV-2 IgG Ab 03/27/20 03/27/20 03/27/20 08:21 18:45 18:45 WBC 42.1 H* MCH RDW 16.3 H Plt Count Lymph % (Auto) [place] % (Auto) Lymph # (Auto) [place] # (Auto) Eos # (Auto) Seg Neutrophils % Seg Neuts % (Manual) 91.0 H Lymphocytes % (Manual) 2.0 L Seg Neutrophils # Seg Neutrophils # Man 38.3 H Lymphocytes # (Manual) 0.8 L Monocytes # (Manual) 1.7 H PT D-Dimer Sodium Potassium Chloride Carbon Dioxide BUN Glucose Ferritin 400.5 H Lactate Dehydrogenase C-Reactive Protein 49.70 H Albumin Ur Specific [place] Coronavirus (PCR) SARS-CoV-2 IgG Ab 03/28/20 03/28/20 03/28/20 07:51 07:51 07:51 WBC 32.2 H MCH 27 L RDW 16.3 H Plt Count Lymph % (Auto) [place] % (Auto) Lymph # (Auto) [place] # (Auto) Eos # (Auto) Seg Neutrophils % Seg Neuts % (Manual) 86.0 H Lymphocytes % (Manual) 10.0 L Seg Neutrophils # Seg Neutrophils # Man 27.7 H Lymphocytes # (Manual) Monocytes # (Manual) 1.3 H PT D-Dimer 1182.25 H Sodium Potassium Chloride Carbon Dioxide BUN Glucose Ferritin 514.4 H Lactate Dehydrogenase C-Reactive Protein Albumin Ur Specific [place] Coronavirus (PCR) SARS-CoV-2 IgG Ab 03/28/20 03/28/20 03/29/20 07:51 17:48 05:07 WBC MCH RDW Plt Count Lymph % (Auto) [place] % (Auto) Lymph # (Auto) [place] # (Auto) Eos # (Auto) Seg Neutrophils % Seg Neuts % (Manual) Lymphocytes % (Manual) Seg Neutrophils # Seg Neutrophils # Man Lymphocytes # (Manual) Monocytes # (Manual) PT D-Dimer Sodium 136 L Potassium Chloride 93.0 L Carbon Dioxide 35 H BUN Glucose 243 H Ferritin Lactate Dehydrogenase 218 H C-Reactive Protein 18.00 H Albumin Ur Specific [place] 1.036 H Coronavirus (PCR) SARS-CoV-2 IgG Ab 03/29/20 03/29/20 03/30/20 05:07 14:39 05:09 WBC 22.0 H 11.4 H MCH 27 L 27 L RDW 16.0 H 16.1 H Plt Count Lymph % (Auto) [place] % (Auto) Lymph # (Auto) [place] # (Auto) Eos # (Auto) Seg Neutrophils % Seg Neuts % (Manual) Lymphocytes % (Manual) Seg Neutrophils # Seg Neutrophils # Man Lymphocytes # (Manual) Monocytes # (Manual) PT D-Dimer Sodium 131 L Potassium Chloride 91.7 L Carbon Dioxide 31 H BUN Glucose 328 H Ferritin Lactate Dehydrogenase C-Reactive Protein Albumin Ur Specific [place] Coronavirus (PCR) SARS-CoV-2 IgG Ab 03/30/20 03/31/20 03/31/20 05:09 05:43 05:43 WBC MCH RDW Plt Count Lymph % (Auto) [place] % (Auto) Lymph # (Auto) [place] # (Auto) Eos # (Auto) Seg Neutrophils % Seg Neuts % (Manual) Lymphocytes % (Manual) Seg Neutrophils # Seg Neutrophils # Man Lymphocytes # (Manual) Monocytes # (Manual) PT D-Dimer 734.03 H Sodium 136 L Potassium Chloride 96.2 L Carbon Dioxide BUN Glucose 297 H Ferritin 404.1 H Lactate Dehydrogenase C-Reactive Protein Albumin Ur Specific [place] Coronavirus (PCR) SARS-CoV-2 IgG Ab 03/31/20 04/02/20 04/02/20 05:43 05:32 05:32 WBC MCH RDW Plt Count Lymph % (Auto) [place] % (Auto) Lymph # (Auto) [place] # (Auto) Eos # (Auto) Seg Neutrophils % Seg Neuts % (Manual) Lymphocytes % (Manual) Seg Neutrophils # Seg Neutrophils # Man Lymphocytes # (Manual) Monocytes # (Manual) PT D-Dimer 652.33 H Sodium Potassium Chloride Carbon Dioxide BUN Glucose Ferritin Lactate Dehydrogenase C-Reactive Protein 3.10 H 2.50 H Albumin Ur Specific [place] Coronavirus (PCR) SARS-CoV-2 IgG Ab 04/04/20 04/08/20 04/08/20 17:15 04:51 04:51 WBC 12.1 H MCH 27 L RDW 16.5 H Plt Count Lymph % (Auto) 11.4 L [place] % (Auto) Lymph # (Auto) [place] # (Auto) Eos # (Auto) 0.5 H Seg Neutrophils % 77.7 H Seg Neuts % (Manual) Lymphocytes % (Manual) Seg Neutrophils # 9.4 H Seg Neutrophils # Man Lymphocytes # (Manual) Monocytes # (Manual) PT D-Dimer Sodium 130 L 133 L Potassium 3.0 L 3.4 L Chloride 90.6 L 93.4 L Carbon Dioxide 32 H 31 H BUN Glucose 135 H 114 H Ferritin Lactate Dehydrogenase C-Reactive Protein Albumin Ur Specific [place] Coronavirus (PCR) SARS-CoV-2 IgG Ab
--- NOTE | 2020-04-09 17:50 | Progress Note ---
Assessment and Plan Assessment and Plan - Patient Problems (1) Sepsis Current Visit: Yes Status: Acute Plan to address problem: Continue IV antibiotics (2) Acute hypoxemic respiratory failure Current Visit: Yes Status: Acute Plan to address problem: Supplemental oxygen, nebulizer therapy, pulse oximetry, prone position while in bed, pulmonary toilet. On high flow oxygen Patient on 40 L Steroids increased by Dr Alva (3) Pneumonia Current Visit: Yes Status: Acute Qualifiers: Laterality: bilateral Plan to address problem: Pneumonia protocol: Chest x-ray, CBC, CMP, nebulizer therapy, pulse oximetry, IV antibiotic therapy, blood culture, pulmonary toilet. (4) COVID-19 virus infection Current Visit: Yes Status: Acute Plan to address problem: Coronavirus positive Continue dexamethasone 6 mg IV/p.o. daily for 10 days Continue remdesivir total 5 days Continue cefepime every 12 hours Check MRSA PCR pending Monitor liver function test on remdesivir Sinus Covid 2 IgG is positive patient is not a candidate for Covid convalescent plasma Patient is not a candidate for Covid positive convalescent plasma Patient on 40 L high flow oxygen Weaning in progress Therapy (5) COPD (chronic obstructive pulmonary disease) Current Visit: Yes Status: Acute Qualifiers: Chronic bronchitis type: unspecified Plan to address problem: IV steroid therapy, supportive care, supplemental oxygen, IV antibiotic therapy. (6) GERD (gastroesophageal reflux disease) Current Visit: Yes Status: Acute Qualifiers: Esophagitis presence: without esophagitis Qualified Code(s): K21.9 - Gastro-esophageal reflux disease without esophagitis Plan to address problem: PPI therapy, supportive care (7) Hypertension Current Visit: Yes Status: Acute Qualifiers: Hypertension type: essential hypertension Qualified Code(s): I10 - Essen tial (primary) hypertension Plan to address problem: Monitor blood pressure every shift, continue medical management. (8) Hyperlipidemia Current Visit: Yes Status: Acute Qualifiers: Hyperlipidemia type: mixed hyperlipidemia Qualified Code(s): E78.2 - Mixed hyperlipidemia Plan to address problem: Lipid panel, statin therapy, balanced diet, low-cholesterol diet. (9) DVT prophylaxis Current Visit: Yes Status: Acute Plan to address problem: SCD to bilateral lower extremities while in bed, prophylactic anticoagulation (10) hypokalemia Supplemented Subjective Date of service: 04/09/20 Principal diagnosis: COVID/COPD Interval history: 64 YO Female with COPD, GERD, HTN, HLD, Anxiety, OA, Asthma Mild Intermittent, presents to ED for evaluation. Patient states that she has "not been feeling well" over the past 5 days with persistently worsening symptoms over the same timeframe. Patient states that she has experienced subjective fever, fatigue, muscle aches, generalized weakness, malaise, dry cough, decreased exercise tolerance, loss of sense of smell, loss of sense of taste, shortness of breath, nausea, multiple loose stools, and diminished oral intake. PT transported to [facility] via private vehicle for further care and evaluation of the aforementioned symptoms. The patient was seen and evaluated in the emergency department. All lab and imaging studies reviewed. The patient was found to be tachypneic with respiratory rate in the 30s as well as tachycardic with a pulse rate of 121, and a temperature of 101.9 F. Patient also found to have a pulse oximetry of 86% with exertion while on room air which is consistent with acute hypoxemic respiratory failure. The patient was also found to have a chest x-ray with bilateral pneumonia as well as as well as sepsis. Patient admitted to medical floor and initiated sepsis protocol. Patient also initiated on coronavirus protocol. Patient denies chills, chest pain, palpitations, productive cough, skin rash, recent ill contacts, or known exposure to COVID-19. Prior admission on 01/07/2020 reviewed. All medication listed at time of admission has been reconciled. Advanced care planning conducted in ED. Interval history: 64 YO Female HD #2 with acute hypoxemic respiratory failure, bilateral pneumonia, sepsis, Covid PCR pending, COPD, GERD, HTN, HLD, Anxiety, OA, Asthma Mild Intermittent. Patient resting comfortably in bed. Patient acknowledges improvement in shortness of breath. Patient denies pain. Day 3 03/15/2020\\ Patient on high flow oxygen Continue IV Decadron and remdesivir Day #4 03/16/2020 Patient on high flow oxygen Continue IV Decadron and IV remdesivir Day#5 03/17/2020 Continue IV Decadron and IV remdesivir Patient on 10 L nasal cannula oxygen Day #6 03/18/2020 Patient on 10 L nasal cannula oxygen 03/19/2020 Day #7 Patient on high flow oxygen Day # 8 03/20/20 Patient on high flow oxygen 12/21/20 On High flow oxygen\\ 03/22/2020 Patient on high flow oxygen from 40 L Patient does not keep her oxygen consistently as the nursing staff and respiratory therapist to decrease oxygen levels 03/23/2020 Patient still on high flow oxygen Alert and oriented and cheerful 03/24/20 Objective - Constitutional Vitals: Vital Signs - 12hr 04/09/20 04/09/20 04/09/20 08:50 10:41 11:29 Temperature 98.5 F Pulse Rate 117 H 119 H Respiratory 19 Rate Blood Pressure 126/68 133/83 O2 Sat by Pulse 90 96 Oximetry 04/09/20 14:27 Temperature Pulse Rate Respiratory Rate Blood Pressure O2 Sat by Pulse 96 Oximetry General appearance: Present: no acute distress, well-nourished - EENT Eyes: PERRL, EOM intact ENT: hearing intact, clear oral mucosa Ears: bilateral: normal - Neck Neck: supple, normal ROM - Respiratory Respiratory effort: normal Respiratory: bilateral: CTA - Breasts Breasts: normal - Cardiovascular Rhythm: regular Heart Sounds: Present: S1 & S2. Absent: gallop, rub Extremities: pulses intact, No edema, normal color, Full ROM - Gastrointestinal General gastrointestinal: Present: soft, non-tender, non-distended, normal bowel sounds - Genitourinary Female genitourinary: normal - Integumentary Integumentary: clear, warm, dry - Musculoskeletal Musculoskeletal: 1, strength equal bilaterally - Neurologic Neurologic: moves all extremities - Psychiatric Psychiatric: memory intact, appropriate mood/affect, intact judgment & insight - Labs CBC & Chem 7: 04/08/20 04:51 04/08/20 04:51 HEART Score - HEART Score Troponin: Troponin T < 0.010 ng/mL (0.00-0.029) 03/13/20 16:24
[2020-04-09] MEDS: AMITRIPTYLINE 10 MG TAB PO SCH (22:44)
[2020-04-09] MEDS: traZODone 100 MG TAB PO SCH (22:45)
[2020-04-09] MEDS: ENOXAPARIN 40 MG/0.4 ML INJ SUB-Q SCH (22:48)
[2020-04-10] MEDS: BENZONATATE 100 MG CAP PO SCH ×4 (06:00→21:59)
[2020-04-10] MEDS: METOPROLOL TARTRATE 25 MG TAB PO SCH ×2 (10:34→21:56)
[2020-04-10] MEDS: ZINC SULFATE 220 MG CAP PO SCH ×2 (10:35→21:58)
[2020-04-10] MEDS: DULoxetine 30 MG CAP PO SCH (10:35)
[2020-04-10] MEDS: lamoTRIgine 100 MG TAB PO SCH (10:35)
[2020-04-10] MEDS: GABAPENTIN 300 MG CAP PO SCH ×4 (10:37→19:57)
[2020-04-10] MEDS: MONTELUKAST 10 MG TAB PO SCH (10:37)
[2020-04-10] MEDS: LITHIUM CARBONATE 150 MG CAP PO SCH ×2 (10:37→21:59)
[2020-04-10] MEDS: ASCORBIC ACID 500 MG TAB PO SCH ×2 (10:37→21:58)
[2020-04-10] MEDS: SODIUM CHLORIDE NASAL SPRAY 44ML NS SCH ×6 (10:39→21:57)
[2020-04-10] MEDS: FAMOTIDINE 20 MG TAB PO SCH ×2 (10:44→21:54)
[2020-04-10] MEDS: OXYBUTYNIN 5 MG TAB PO SCH ×4 (10:45→19:57)
[2020-04-10] MEDS: ERGOCALCIFEROL (VIT D2) 50,000 UNIT CAP PO SCH (10:49)
--- NOTE | 2020-04-10 12:07 | Progress Note ---
Assessment and Plan - Patient Problems (1) Acute hypoxemic respiratory failure Current Visit: Yes Status: Acute (2) Hyponatremia Current Visit: Yes Status: Acute (3) Hypoxia Current Visit: Yes Status: Acute (4) Pneumonia Current Visit: Yes Status: Acute Qualifiers: Laterality: bilateral (5) Pneumonia due to COVID-19 virus Current Visit: Yes Status: Acute (6) Shortness of breath Current Visit: Yes Status: Acute (7) COPD (chronic obstructive pulmonary disease) Current Visit: Yes Status: Chronic Qualifiers: Chronic bronchitis type: unspecified Subjective Principal diagnosis: COVID/COPD Interval history: awake Objective Vital Signs - 12hr 04/10/20 04/10/20 04/10/20 03:36 03:44 10:34 Temperature 97.6 F Pulse Rate 98 H 104 H Respiratory 18 Rate Blood Pressure 114/55 O2 Sat by Pulse 93 95 Oximetry Constitutional: alert, other (critically ill on HFNC) Eyes: non-icteric Neck: supple Effort: mildly labored Ascultation: Bilateral: clear, diminished breath sounds, wheezes Cardiovascular: other (tachy, RR; no mrg) Gastrointestinal: normoactive bowel sounds, soft, non-tender Integumentary: normal Extremities: no cyanosis, no edema, pink and warm Neurologic: normal mental status, non-focal exam, CN II-XII normal Psychiatric: mood appropriate, other (very fidgety) CBC and BMP: 04/08/20 04:51 04/08/20 04:51 ABG, PT/INR, D-dimer: PT/INR, D-dimer PT 11.8 Sec. (12.2-14.9) L 03/13/20 16:24 INR 0.89 (0.87-1.13) 03/13/20 16:24 D-Dimer 652.33 ng/mlDDU (0-234) H 04/02/20 05:32 Abnormal lab findings: Abnormal Labs 03/13/20 03/13/20 03/13/20 16:24 16:24 16:24 WBC MCH RDW 16.8 H Plt Count Lymph % (Auto) 8.5 L [place] % (Auto) Lymph # (Auto) 0.6 L [place] # (Auto) Eos # (Auto) Seg Neutrophils % 84.9 H Seg Neuts % (Manual) Lymphocytes % (Manual) Seg Neutrophils # Seg Neutrophils # Man Lymphocytes # (Manual) Monocytes # (Manual) PT 11.8 L D-Dimer 234.66 H Sodium 135 L Potassium 3.1 L Chloride Carbon Dioxide BUN Glucose 174 H Ferritin Lactate Dehydrogenase 277 H C-Reactive Protein 8.00 H Albumin 3.7 L Ur Specific [place] Coronavirus (PCR) SARS-CoV-2 IgG Ab 03/13/20 03/14/20 03/14/20 16:24 08:02 08:02 WBC 3.9 L MCH RDW 16.3 H Plt Count Lymph % (Auto) [place] % (Auto) 9.5 H Lymph # (Auto) 0.7 L [place] # (Auto) Eos # (Auto) Seg Neutrophils % 72.9 H Seg Neuts % (Manual) Lymphocytes % (Manual) Seg Neutrophils # Seg Neutrophils # Man Lymphocytes # (Manual) Monocytes # (Manual) PT D-Dimer Sodium Potassium Chloride 107.4 H Carbon Dioxide BUN Glucose 174 H 142 H Ferritin Lactate Dehydrogenase 267 H C-Reactive Protein 8.10 H Albumin Ur Specific [place] Coronavirus (PCR) SARS-CoV-2 IgG Ab 03/14/20 03/14/20 03/14/20 16:58 16:58 Unknown WBC MCH RDW Plt Count Lymph % (Auto) [place] % (Auto) Lymph # (Auto) [place] # (Auto) Eos # (Auto) Seg Neutrophils % Seg Neuts % (Manual) Lymphocytes % (Manual) Seg Neutrophils # Seg Neutrophils # Man Lymphocytes # (Manual) Monocytes # (Manual) PT D-Dimer Sodium Potassium Chloride Carbon Dioxide BUN Glucose Ferritin Lactate Dehydrogenase 277 H C-Reactive Protein 2.60 H Albumin Ur Specific [place] Coronavirus (PCR) Positive A SARS-CoV-2 IgG Ab Reactive A 03/16/20 03/16/20 03/16/20 05:18 05:18 10:34 WBC MCH RDW 16.4 H Plt Count Lymph % (Auto) [place] % (Auto) 10.0 H Lymph # (Auto) [place] # (Auto) Eos # (Auto) Seg Neutrophils % Seg Neuts % (Manual) Lymphocytes % (Manual) Seg Neutrophils # Seg Neutrophils # Man Lymphocytes # (Manual) Monocytes # (Manual) PT D-Dimer 278.32 H Sodium Potassium 3.1 L Chloride Carbon Dioxide BUN Glucose Ferritin Lactate Dehydrogenase C-Reactive Protein Albumin 3.4 L Ur Specific [place] Coronavirus (PCR) SARS-CoV-2 IgG Ab 03/16/20 03/17/20 03/18/20 10:34 21:24 05:58 WBC 14.8 H MCH RDW 15.8 H Plt Count Lymph % (Auto) 11.5 L [place] % (Auto) Lymph # (Auto) [place] # (Auto) 1.0 H Eos # (Auto) Seg Neutrophils % 81.3 H Seg Neuts % (Manual) Lymphocytes % (Manual) Seg Neutrophils # 12.0 H Seg Neutrophils # Man Lymphocytes # (Manual) Monocytes # (Manual) PT D-Dimer Sodium Potassium Chloride Carbon Dioxide BUN Glucose 182 H Ferritin Lactate Dehydrogenase 268 H 268 H C-Reactive Protein 2.10 H 4.90 H Albumin Ur Specific [place] Coronavirus (PCR) SARS-CoV-2 IgG Ab 03/18/20 03/21/20 03/21/20 05:58 05:27 05:27 WBC 14.1 H MCH 27 L RDW 16.1 H Plt Count 513 H Lymph % (Auto) 11.5 L [place] % (Auto) 7.9 H Lymph # (Auto) [place] # (Auto) 1.1 H Eos # (Auto) Seg Neutrophils % 78.4 H Seg Neuts % (Manual) Lymphocytes % (Manual) Seg Neutrophils # 11.1 H Seg Neutrophils # Man Lymphocytes # (Manual) Monocytes # (Manual) PT D-Dimer Sodium Potassium 2.9 L* Chloride Carbon Dioxide 18 L BUN Glucose Ferritin Lactate Dehydrogenase C-Reactive Protein Albumin 3.6 L 3.6 L Ur Specific [place] Coronavirus (PCR) SARS-CoV-2 IgG Ab 03/22/20 03/22/20 03/22/20 15:45 15:45 15:45 WBC MCH RDW Plt Count Lymph % (Auto) [place] % (Auto) Lymph # (Auto) [place] # (Auto) Eos # (Auto) Seg Neutrophils % Seg Neuts % (Manual) Lymphocytes % (Manual) Seg Neutrophils # Seg Neutrophils # Man Lymphocytes # (Manual) Monocytes # (Manual) PT D-Dimer 274.02 H Sodium Potassium Chloride Carbon Dioxide BUN Glucose Ferritin Lactate Dehydrogenase 259 H C-Reactive Protein 7.60 H Albumin Ur Specific [place] Coronavirus (PCR) SARS-CoV-2 IgG Ab 03/26/20 03/26/20 03/27/20 05:45 05:45 08:21 WBC 34.9 H MCH RDW 15.9 H Plt Count 579 H Lymph % (Auto) [place] % (Auto) Lymph # (Auto) [place] # (Auto) Eos # (Auto) Seg Neutrophils % Seg Neuts % (Manual) Lymphocytes % (Manual) Seg Neutrophils # Seg Neutrophils # Man Lymphocytes # (Manual) Monocytes # (Manual) PT D-Dimer Sodium 130 L 130 L Potassium Chloride 86.0 L 88.5 L Carbon Dioxide 35 H BUN 22 H Glucose 227 H 326 H Ferritin Lactate Dehydrogenase 213 H C-Reactive Protein 34.50 H Albumin Ur Specific [place] Coronavirus (PCR) SARS-CoV-2 IgG Ab 03/27/20 03/27/20 03/27/20 08:21 18:45 18:45 WBC 42.1 H* MCH RDW 16.3 H Plt Count Lymph % (Auto) [place] % (Auto) Lymph # (Auto) [place] # (Auto) Eos # (Auto) Seg Neutrophils % Seg Neuts % (Manual) 91.0 H Lymphocytes % (Manual) 2.0 L Seg Neutrophils # Seg Neutrophils # Man 38.3 H Lymphocytes # (Manual) 0.8 L Monocytes # (Manual) 1.7 H PT D-Dimer Sodium Potassium Chloride Carbon Dioxide BUN Glucose Ferritin 400.5 H Lactate Dehydrogenase C-Reactive Protein 49.70 H Albumin Ur Specific [place] Coronavirus (PCR) SARS-CoV-2 IgG Ab 03/28/20 03/28/20 03/28/20 07:51 07:51 07:51 WBC 32.2 H MCH 27 L RDW 16.3 H Plt Count Lymph % (Auto) [place] % (Auto) Lymph # (Auto) [place] # (Auto) Eos # (Auto) Seg Neutrophils % Seg Neuts % (Manual) 86.0 H Lymphocytes % (Manual) 10.0 L Seg Neutrophils # Seg Neutrophils # Man 27.7 H Lymphocytes # (Manual) Monocytes # (Manual) 1.3 H PT D-Dimer 1182.25 H Sodium Potassium Chloride Carbon Dioxide BUN Glucose Ferritin 514.4 H Lactate Dehydrogenase C-Reactive Protein Albumin Ur Specific [place] Coronavirus (PCR) SARS-CoV-2 IgG Ab 03/28/20 03/28/20 03/29/20 07:51 17:48 05:07 WBC MCH RDW Plt Count Lymph % (Auto) [place] % (Auto) Lymph # (Auto) [place] # (Auto) Eos # (Auto) Seg Neutrophils % Seg Neuts % (Manual) Lymphocytes % (Manual) Seg Neutrophils # Seg Neutrophils # Man Lymphocytes # (Manual) Monocytes # (Manual) PT D-Dimer Sodium 136 L Potassium Chloride 93.0 L Carbon Dioxide 35 H BUN Glucose 243 H Ferritin Lactate Dehydrogenase 218 H C-Reactive Protein 18.00 H Albumin Ur Specific [place] 1.036 H Coronavirus (PCR) SARS-CoV-2 IgG Ab 03/29/20 03/29/20 03/30/20 05:07 14:39 05:09 WBC 22.0 H 11.4 H MCH 27 L 27 L RDW 16.0 H 16.1 H Plt Count Lymph % (Auto) [place] % (Auto) Lymph # (Auto) [place] # (Auto) Eos # (Auto) Seg Neutrophils % Seg Neuts % (Manual) Lymphocytes % (Manual) Seg Neutrophils # Seg Neutrophils # Man Lymphocytes # (Manual) Monocytes # (Manual) PT D-Dimer Sodium 131 L Potassium Chloride 91.7 L Carbon Dioxide 31 H BUN Glucose 328 H Ferritin Lactate Dehydrogenase C-Reactive Protein Albumin Ur Specific [place] Coronavirus (PCR) SARS-CoV-2 IgG Ab 03/30/20 03/31/20 03/31/20 05:09 05:43 05:43 WBC MCH RDW Plt Count Lymph % (Auto) [place] % (Auto) Lymph # (Auto) [place] # (Auto) Eos # (Auto) Seg Neutrophils % Seg Neuts % (Manual) Lymphocytes % (Manual) Seg Neutrophils # Seg Neutrophils # Man Lymphocytes # (Manual) Monocytes # (Manual) PT D-Dimer 734.03 H Sodium 136 L Potassium Chloride 96.2 L Carbon Dioxide BUN Glucose 297 H Ferritin 404.1 H Lactate Dehydrogenase C-Reactive Protein Albumin Ur Specific [place] Coronavirus (PCR) SARS-CoV-2 IgG Ab 03/31/20 04/02/20 04/02/20 05:43 05:32 05:32 WBC MCH RDW Plt Count Lymph % (Auto) [place] % (Auto) Lymph # (Auto) [place] # (Auto) Eos # (Auto) Seg Neutrophils % Seg Neuts % (Manual) Lymphocytes % (Manual) Seg Neutrophils # Seg Neutrophils # Man Lymphocytes # (Manual) Monocytes # (Manual) PT D-Dimer 652.33 H Sodium Potassium Chloride Carbon Dioxide BUN Glucose Ferritin Lactate Dehydrogenase C-Reactive Protein 3.10 H 2.50 H Albumin Ur Specific [place] Coronavirus (PCR) SARS-CoV-2 IgG Ab 04/04/20 04/08/20 04/08/20 17:15 04:51 04:51 WBC 12.1 H MCH 27 L RDW 16.5 H Plt Count Lymph % (Auto) 11.4 L [place] % (Auto) Lymph # (Auto) [place] # (Auto) Eos # (Auto) 0.5 H Seg Neutrophils % 77.7 H Seg Neuts % (Manual) Lymphocytes % (Manual) Seg Neutrophils # 9.4 H Seg Neutrophils # Man Lymphocytes # (Manual) Monocytes # (Manual) PT D-Dimer Sodium 130 L 133 L Potassium 3.0 L 3.4 L Chloride 90.6 L 93.4 L Carbon Dioxide 32 H 31 H BUN Glucose 135 H 114 H Ferritin Lactate Dehydrogenase C-Reactive Protein Albumin Ur Specific [place] Coronavirus (PCR) SARS-CoV-2 IgG Ab
--- NOTE | 2020-04-10 14:02 | Progress Note ---
Assessment and Plan Assessment and Plan - Patient Problems (1) Sepsis Current Visit: Yes Status: Acute Plan to address problem: Continue IV antibiotics (2) Acute hypoxemic respiratory failure Current Visit: Yes Status: Acute Plan to address problem: Supplemental oxygen, nebulizer therapy, pulse oximetry, prone position while in bed, pulmonary toilet. On high flow oxygen Patient on 40 L Steroids increased by Dr Alva (3) Pneumonia Current Visit: Yes Status: Acute Qualifiers: Laterality: bilateral Plan to address problem: Pneumonia protocol: Chest x-ray, CBC, CMP, nebulizer therapy, pulse oximetry, IV antibiotic therapy, blood culture, pulmonary toilet. (4) COVID-19 virus infection Current Visit: Yes Status: Acute Plan to address problem: Coronavirus positive Continue dexamethasone 6 mg IV/p.o. daily for 10 days Continue remdesivir total 5 days Continue cefepime every 12 hours Check MRSA PCR pending Monitor liver function test on remdesivir Sinus Covid 2 IgG is positive patient is not a candidate for Covid convalescent plasma Patient is not a candidate for Covid positive convalescent plasma Patient on 6 L nasal cannula oxygen Improving (5) COPD (chronic obstructive pulmonary disease) Current Visit: Yes Status: Acute Qualifiers: Chronic bronchitis type: unspecified Plan to address problem: IV steroid therapy, supportive care, supplemental oxygen, IV antibiotic therapy. (6) GERD (gastroesophageal reflux disease) Current Visit: Yes Status: Acute Qualifiers: Esophagitis presence: without esophagitis Qualified Code(s): K21.9 - Gastro-esophageal reflux disease without esophagitis Plan to address problem: PPI therapy, supportive care (7) Hypertension Current Visit: Yes Status: Acute Qualifiers: Hypertension type: essential hypertension Qualified Code(s): I10 - Essential (primary) hypertension Plan to address problem: Monitor blood pressure every shift, continue medical management. (8) Hyperlipidemia Current Visit: Yes Status: Acute Qualifiers: Hyperlipidemia type: mixed hyperlipidemia Qualified Code(s): E78.2 - Mixed hyperlipidemia Plan to address problem: Lipid panel, statin therapy, balanced diet, low-cholesterol diet. (9) DVT prophylaxis Current Visit: Yes Status: Acute Plan to address problem: SCD to bilateral lower extremities while in bed, prophylactic anticoagulation (10) hypokalemia Supplemented Subjective Date of service: 04/10/20 Principal diagnosis: COVID/COPD Interval history: 64 YO Female with COPD, GERD, HTN, HLD, Anxiety, OA, Asthma Mild Intermittent, p resents to ED for evaluation. Patient states that she has "not been feeling well" over the past 5 days with persistently worsening symptoms over the same timeframe. Patient states that she has experienced subjective fever, fatigue, muscle aches, generalized weakness, malaise, dry cough, decreased exercise tolerance, loss of sense of smell, loss of sense of taste, shortness of breath, nausea, multiple loose stools, and diminished oral intake. PT transported to [facility] via private vehicle for further care and evaluation of the aforementioned symptoms. The patient was seen and evaluated in the emergency department. All lab and imaging studies reviewed. The patient was found to be tachypneic with respiratory rate in the 30s as well as tachycardic with a pulse rate of 121, and a temperature of 101.9 F. Patient also found to have a pulse oximetry of 86% with exertion while on room air which is consistent with acute hypoxemic respiratory failure. The patient was also found to have a chest x-ray with bilateral pneumonia as well as as well as sepsis. Patient admitted to medical floor and initiated sepsis protocol. Patient also initiated on coronavirus protocol. Patient denies chills, chest pain, palpitations, productive cough, skin rash, recent ill contacts, or known exposure to COVID-19. Prior admission on 01/07/2020 reviewed. All medication listed at time of admission has been reconciled. Advanced care planning conducted in ED. Interval history: 64 YO Female HD #2 with acute hypoxemic respiratory failure, bilateral pneumonia, sepsis, Covid PCR pending, COPD, GERD, HTN, HLD, Anxiety, OA, Asthma Mild Intermittent. Patient resting comfortably in bed. Patient acknowledges improvement in shortness of breath. Patient denies pain. Day 3 03/15/2020\\ Patient on high flow oxygen Continue IV Decadron and remdesivir Day #4 03/16/2020 Patient on high flow oxygen Continue IV Decadron and IV remdesivir Day#5 03/17/2020 Continue IV Decadron and IV remdesivir Patient on 10 L nasal cannula oxygen Day #6 03/18/2020 Patient on 10 L nasal cannula oxygen 03/19/2020 Day #7 Patient on high flow oxygen Day # 8 03/20/20 Patient on high flow oxygen 03/21/20 On High flow oxygen\\ 03/22/2020 Patient on high flow oxygen from 40 L Patient does not keep her oxygen consistently as the nursing staff and respiratory therapist to decrease oxygen levels 03/23/2020 Patient still on high flow oxygen Alert and oriented and cheerful 03/24/20 Patient on high flow oxygen 04/09/2020 Patient is on 6 L nasal cannula oxygen Objective - Constitutional Vitals: Vital Signs - 12hr 04/10/20 04/10/20 04/10/20 03:36 03:44 10:34 Temperature 97.6 F Pulse Rate 98 H 104 H Respiratory 18 Rate Blood Pressure 114/55 O2 Sat by Pulse 93 95 Oximetry 04/10/20 12:24 Temperature Pulse Rate Respiratory Rate Blood Pressure O2 Sat by Pulse 92 Oximetry General appearance: Present: no acute distress, well-nourished - EENT Eyes: PERRL, EOM intact ENT: hearing intact, clear oral mucosa Ears: bilateral: normal - Neck Neck: supple, normal ROM - Respiratory Respiratory effort: normal Respiratory: bilateral: CTA - Breasts Breasts: normal - Cardiovascular Heart rate: 78 Rhythm: regular Heart Sounds: Present: S1 & S2. Absent: gallop, rub Extremities: pulses intact, No edema, normal color, Full ROM - Gastrointestinal General gastrointestinal: Present: soft, non-tender, non-distended, normal bowel sounds - Genitourinary Female genitourinary: normal - Integumentary Integumentary: clear, warm, dry - Musculoskeletal Musculoskeletal: 1, strength equal bilaterally - Neurologic Neurologic: moves all extremities - Psychiatric Psychiatric: memory intact, appropriate mood/affect, intact judgment & insight - Labs CBC & Chem 7: 04/08/20 04:51 04/08/20 04:51 HEART Score - HEART Score Troponin: Troponin T < 0.010 ng/mL (0.00-0.029) 03/13/20 16:24
[2020-04-10] MEDS: ENOXAPARIN 40 MG/0.4 ML INJ SUB-Q SCH (21:53)
[2020-04-10] MEDS: traZODone 100 MG TAB PO SCH (21:59)
[2020-04-10] MEDS: AMITRIPTYLINE 10 MG TAB PO SCH (22:00)
[2020-04-11] MEDS: BENZONATATE 100 MG CAP PO SCH ×3 (05:23→22:36)
[2020-04-11 06:52] LABS: Basophils # (Auto) 0.1 K/mm3 (0.0-0.1); Eosinophils # (Auto) 0.5 K/mm3 (0.0-0.4); Eosinophils % (Auto) 4.2 % (0.0-4.3); Hematocrit 34.2 % (30.3-42.9); Hemoglobin 11.1 gm/dl (10.1-14.3); Lymphocytes # (Auto) 1.9 K/mm3 (1.2-5.4); Lymphocytes % (Auto) 16.3 % (13.4-35.0); Mean Corpuscular HGB Conc 33 % (30-34); Mean Corpuscular Volume 83 fl (79-97); Monocytes % (Auto) 8.5 % (0.0-7.3); Platelet Count 366 K/mm3 (140-440); Red Blood Count 4.15 M/mm3 (3.65-5.03); Red Cell Distribution Width 17.2 % (13.2-15.2)
[2020-04-11 06:53] LABS: Alanine Aminotransferase 12 units/L (7-56); Albumin 3.3 g/dL (3.9-5)
[2020-04-11 07:00] LABS: Bilirubin,Direct < 0.2 mg/dL (0-0.2)
[2020-04-11] MEDS: GABAPENTIN 300 MG CAP PO SCH ×3 (08:00→22:45)
[2020-04-11] MEDS: OXYBUTYNIN 5 MG TAB PO SCH ×3 (08:00→22:43)
[2020-04-11] MEDS: DULoxetine 30 MG CAP PO SCH (10:43)
[2020-04-11] MEDS: lamoTRIgine 100 MG TAB PO SCH (10:43)
[2020-04-11] MEDS: FAMOTIDINE 20 MG TAB PO SCH ×2 (10:43→22:36)
[2020-04-11] MEDS: METOPROLOL TARTRATE 25 MG TAB PO SCH ×2 (10:44→22:42)
[2020-04-11] MEDS: LITHIUM CARBONATE 150 MG CAP PO SCH ×2 (10:44→22:36)
[2020-04-11] MEDS: ASCORBIC ACID 500 MG TAB PO SCH ×2 (10:44→22:35)
[2020-04-11] MEDS: MONTELUKAST 10 MG TAB PO SCH (10:44)
[2020-04-11] MEDS: ZINC SULFATE 220 MG CAP PO SCH ×2 (10:44→22:51)
[2020-04-11] MEDS: SODIUM CHLORIDE NASAL SPRAY 44ML NS SCH ×4 (10:45→23:02)
--- NOTE | 2020-04-11 12:00 | Progress Note ---
Assessment and Plan 64 y/o female with acute on chronic respiratory failure secondary COVID 19 pneumonia. 04/11/20: Would not discharge on 5 liters at rest unless the company can provide a large concentrator (7-10) liters. Patient would need a small buffer incase she got into trouble with desats and being on the max for the concentrator is not appropriate. Continue to wean as tolerated. Suggest a short trial of diuresis if I/O are accurate. 1. steroids are now off. Continue to wean FiO2 for sats >88% 2. Ordered nasal saline to help with moisture and nose bleeds secondary to prolonged high flow. 3. Prone as tolerated during the day and sleep prone at night. Patient has been noncompliant with this. Did not prone again last night. 4. Guarded prognosis given prolonged high levels of flow and oxygen requirements. However patient has improved significantly. 5. Now that stable on 2-3 liters, suggest walk test to determine oxygen needs with ambulation and if she can maintain adequate sats on 2-3 liters would have no objection with discharge. Subjective Date of service: 04/11/20 Principal diagnosis: COVID/COPD Interval history: Still on 5 liters. STable. Objective Vital Signs - 12hr 04/11/20 04/11/20 04/11/20 03:17 03:39 08:00 Temperature 97.7 F Pulse Rate 98 H Respiratory 18 Rate Blood Pressure 122/60 O2 Sat by Pulse 97 92 92 Oximetry Constitutional: alert, other (critically ill on HFNC) Eyes: non-icteric Neck: supple Effort: mildly labored Ascultation: Bilateral: clear, diminished breath sounds, wheezes Cardiovascular: other (tachy, RR; no mrg) Gastrointestinal: normoactive bowel sounds, soft, non-tender Integumentary: normal Extremities: no cyanosis, no edema, pink and warm Neurologic: normal mental status, non-focal exam, CN II-XII normal Psychiatric: mood appropriate, other (very fidgety) CBC and BMP: 04/11/20 05:22 04/08/20 04:51 ABG, PT/INR, D-dimer: PT/INR, D-dimer PT 11.8 Sec. (12.2-14.9) L 03/13/20 16:24 INR 0.89 (0.87-1.13) 03/13/20 16:24 D-Dimer 652.33 ng/mlDDU (0-234) H 04/02/20 05:32 Abnormal lab findings: Abnormal Labs 03/13/20 03/13/20 03/13/20 16:24 16:24 16:24 WBC MCH RDW 16.8 H Plt Count Lymph % (Auto) 8.5 L [place] % (Auto) Lymph # (Auto) 0.6 L [place] # (Auto) Eos # (Auto) Seg Neutrophils % 84.9 H Seg Neuts % (Manual) Lymphocytes % (Manual) Seg Neutrophils # Seg Neutrophils # Man Lymphocytes # (Manual) Monocytes # (Manual) PT 11.8 L D-Dimer 234.66 H Sodium 135 L Potassium 3.1 L Chloride Carbon Dioxide BUN Glucose 174 H Ferritin Lactate Dehydrogenase 277 H C-Reactive Protein 8.00 H Albumin 3.7 L Total Protein Ur Specific [place] Coronavirus (PCR) SARS-CoV-2 IgG Ab 03/13/20 03/14/20 03/14/20 16:24 08:02 08:02 WBC 3.9 L MCH RDW 16.3 H Plt Count Lymph % (Auto) [place] % (Auto) 9.5 H Lymph # (Auto) 0.7 L [place] # (Auto) Eos # (Auto) Seg Neutrophils % 72.9 H Seg Neuts % (Manual) Lymphocytes % (Manual) Seg Neutrophils # Seg Neutrophils # Man Lymphocytes # (Manual) Monocytes # (Manual) PT D-Dimer Sodium Potassium Chloride 107.4 H Carbon Dioxide BUN Glucose 174 H 142 H Ferritin Lactate Dehydrogenase 267 H C-Reactive Protein 8.10 H Albumin Total Protein Ur Specific [place] Coronavirus (PCR) SARS-CoV-2 IgG Ab 03/14/20 03/14/20 03/14/20 16:58 16:58 Unknown WBC MCH RDW Plt Count Lymph % (Auto) [place] % (Auto) Lymph # (Auto) [place] # (Auto) Eos # (Auto) Seg Neutrophils % Seg Neuts % (Manual) Lymphocytes % (Manual) Seg Neutrophils # Seg Neutrophils # Man Lymphocytes # (Manual) Monocytes # (Manual) PT D-Dimer Sodium Potassium Chloride Carbon Dioxide BUN Glucose Ferritin Lactate Dehydrogenase 277 H C-Reactive Protein 2.60 H Albumin Total Protein Ur Specific [place] Coronavirus (PCR) Positive A SARS-CoV-2 IgG Ab Reactive A 12/03/16/20 03/16/20 05:18 05:18 10:34 WBC MCH RDW 16.4 H Plt Count Lymph % (Auto) [place] % (Auto) 10.0 H Lymph # (Auto) [place] # (Auto) Eos # (Auto) Seg Neutrophils % Seg Neuts % (Manual) Lymphocytes % (Manual) Seg Neutrophils # Seg Neutrophils # Man Lymphocytes # (Manual) Monocytes # (Manual) PT D-Dimer 278.32 H Sodium Potassium 3.1 L Chloride Carbon Dioxide BUN Glucose Ferritin Lactate Dehydrogenase C-Reactive Protein Albumin 3.4 L Total Protein Ur Specific [place] Coronavirus (PCR) SARS-CoV-2 IgG Ab 03/16/20 03/17/20 03/18/20 10:34 21:24 05:58 WBC 14.8 H MCH RDW 15.8 H Plt Count Lymph % (Auto) 11.5 L [place] % (Auto) Lymph # (Auto) [place] # (Auto) 1.0 H Eos # (Auto) Seg Neutrophils % 81.3 H Seg Neuts % (Manual) Lymphocytes % (Manual) Seg Neutrophils # 12.0 H Seg Neutrophils # Man Lymphocytes # (Manual) Monocytes # (Manual) PT D-Dimer Sodium Potassium Chloride Carbon Dioxide BUN Glucose 182 H Ferritin Lactate Dehydrogenase 268 H 268 H C-Reactive Protein 2.10 H 4.90 H Albumin Total Protein Ur Specific [place] Coronavirus (PCR) SARS-CoV-2 IgG Ab 03/18/20 03/21/20 03/21/20 05:58 05:27 05:27 WBC 14.1 H MCH 27 L RDW 16.1 H Plt Count 513 H Lymph % (Auto) 11.5 L [place] % (Auto) 7.9 H Lymph # (Auto) [place] # (Auto) 1.1 H Eos # (Auto) Seg Neutrophils % 78.4 H Seg Neuts % (Manual) Lymphocytes % (Manual) Seg Neutrophils # 11.1 H Seg Neutrophils # Man Lymphocytes # (Manual) Monocytes # (Manual) PT D-Dimer Sodium Potassium 2.9 L* Chloride Carbon Dioxide 18 L BUN Glucose Ferritin Lactate Dehydrogenase C-Reactive Protein Albumin 3.6 L 3.6 L Total Protein Ur Specific [place] Coronavirus (PCR) SARS-CoV-2 IgG Ab 03/22/20 03/22/20 03/22/20 15:45 15:45 15:45 WBC MCH RDW Plt Count Lymph % (Auto) [place] % (Auto) Lymph # (Auto) [place] # (Auto) Eos # (Auto) Seg Neutrophils % Seg Neuts % (Manual) Lymphocytes % (Manual) Seg Neutrophils # Seg Neutrophils # Man Lymphocytes # (Manual) Monocytes # (Manual) PT D-Dimer 274.02 H Sodium Potassium Chloride Carbon Dioxide BUN Glucose Ferritin Lactate Dehydrogenase 259 H C-Reactive Protein 7.60 H Albumin Total Protein Ur Specific [place] Coronavirus (PCR) SARS-CoV-2 IgG Ab 03/26/20 03/26/20 03/27/20 05:45 05:45 08:21 WBC 34.9 H MCH RDW 15.9 H Plt Count 579 H Lymph % (Auto) [place] % (Auto) Lymph # (Auto) [place] # (Auto) Eos # (Auto) Seg Neutrophils % Seg Neuts % (Manual) Lymphocytes % (Manual) Seg Neutrophils # Seg Neutrophils # Man Lymphocytes # (Manual) Monocytes # (Manual) PT D-Dimer Sodium 130 L 130 L Potassium Chloride 86.0 L 88.5 L Carbon Dioxide 35 H BUN 22 H Glucose 227 H 326 H Ferritin Lactate Dehydrogenase 213 H C-Reactive Protein 34.50 H Albumin Total Protein Ur Specific [place] Coronavirus (PCR) SARS-CoV-2 IgG Ab 03/27/20 03/27/20 03/27/20 08:21 18:45 18:45 WBC 42.1 H* MCH RDW 16.3 H Plt Count Lymph % (Auto) [place] % (Auto) Lymph # (Auto) [place] # (Auto) Eos # (Auto) Seg Neutrophils % Seg Neuts % (Manual) 91.0 H Lymphocytes % (Manual) 2.0 L Seg Neutrophils # Seg Neutrophils # Man 38.3 H Lymphocytes # (Manual) 0.8 L Monocytes # (Manual) 1.7 H PT D-Dimer Sodium Potassium Chloride Carbon Dioxide BUN Glucose Ferritin 400.5 H Lactate Dehydrogenase C-Reactive Protein 49.70 H Albumin Total Protein Ur Specific [place] Coronavirus (PCR) SARS-CoV-2 IgG Ab 03/28/20 03/28/20 03/28/20 07:51 07:51 07:51 WBC 32.2 H MCH 27 L RDW 16.3 H Plt Count Lymph % (Auto) [place] % (Auto) Lymph # (Auto) [place] # (Auto) Eos # (Auto) Seg Neutrophils % Seg Neuts % (Manual) 86.0 H Lymphocytes % (Manual) 10.0 L Seg Neutrophils # Seg Neutrophils # Man 27.7 H Lymphocytes # (Manual) Monocytes # (Manual) 1.3 H PT D-Dimer 1182.25 H Sodium Potassium Chloride Carbon Dioxide BUN Glucose Ferritin 514.4 H Lactate Dehydrogenase C-Reactive Protein Albumin Total Protein Ur Specific [place] Coronavirus (PCR) SARS-CoV-2 IgG Ab 03/28/20 03/28/20 03/29/20 07:51 17:48 05:07 WBC MCH RDW Plt Count Lymph % (Auto) [place] % (Auto) Lymph # (Auto) [place] # (Auto) Eos # (Auto) Seg Neutrophils % Seg Neuts % (Manual) Lymphocytes % (Manual) Seg Neutrophils # Seg Neutrophils # Man Lymphocytes # (Manual) Monocytes # (Manual) PT D-Dimer Sodium 136 L Potassium Chloride 93.0 L Carbon Dioxide 35 H BUN Glucose 243 H Ferritin Lactate Dehydrogenase 218 H C-Reactive Protein 18.00 H Albumin Total Protein Ur Specific [place] 1.036 H Coronavirus (PCR) SARS-CoV-2 IgG Ab 03/29/20 03/29/20 03/30/20 05:07 14:39 05:09 WBC 22.0 H 11.4 H MCH 27 L 27 L RDW 16.0 H 16.1 H Plt Count Lymph % (Auto) [place] % (Auto) Lymph # (Auto) [place] # (Auto) Eos # (Auto) Seg Neutrophils % Seg Neuts % (Manual) Lymphocytes % (Manual) Seg Neutrophils # Seg Neutrophils # Man Lymphocytes # (Manual) Monocytes # (Manual) PT D-Dimer Sodium 131 L Potassium Chloride 91.7 L Carbon Dioxide 31 H BUN Glucose 328 H Ferritin Lactate Dehydrogenase C-Reactive Protein Albumin Total Protein Ur Specific [place] Coronavirus (PCR) SARS-CoV-2 IgG Ab 03/30/20 03/31/20 03/31/20 05:09 05:43 05:43 WBC MCH RDW Plt Count Lymph % (Auto) [place] % (Auto) Lymph # (Auto) [place] # (Auto) Eos # (Auto) Seg Neutrophils % Seg Neuts % (Manual) Lymphocytes % (Manual) Seg Neutrophils # Seg Neutrophils # Man Lymphocytes # (Manual) Monocytes # (Manual) PT D-Dimer 734.03 H Sodium 136 L Potassium Chloride 96.2 L Carbon Dioxide BUN Glucose 297 H Ferritin 404.1 H Lactate Dehydrogenase C-Reactive Protein Albumin Total Protein Ur Specific [place] Coronavirus (PCR) SARS-CoV-2 IgG Ab 03/31/20 04/02/20 04/02/20 05:43 05:32 05:32 WBC MCH RDW Plt Count Lymph % (Auto) [place] % (Auto) Lymph # (Auto) [place] # (Auto) Eos # (Auto) Seg Neutrophils % Seg Neuts % (Manual) Lymphocytes % (Manual) Seg Neutrophils # Seg Neutrophils # Man Lymphocytes # (Manual) Monocytes # (Manual) PT D-Dimer 652.33 H Sodium Potassium Chloride Carbon Dioxide BUN Glucose Ferritin Lactate Dehydrogenase C-Reactive Protein 3.10 H 2.50 H Albumin Total Protein Ur Specific [place] Coronavirus (PCR) SARS-CoV-2 IgG Ab 04/04/20 04/08/20 04/08/20 17:15 04:51 04:51 WBC 12.1 H MCH 27 L RDW 16.5 H Plt Count Lymph % (Auto) 11.4 L [place] % (Auto) Lymph # (Auto) [place] # (Auto) Eos # (Auto) 0.5 H Seg Neutrophils % 77.7 H Seg Neuts % (Manual) Lymphocytes % (Manual) Seg Neutrophils # 9.4 H Seg Neutrophils # Man Lymphocytes # (Manual) Monocytes # (Manual) PT D-Dimer Sodium 130 L 133 L Potassium 3.0 L 3.4 L Chloride 90.6 L 93.4 L Carbon Dioxide 32 H 31 H BUN Glucose 135 H 114 H Ferritin Lactate Dehydrogenase C-Reactive Protein Albumin Total Protein Ur Specific [place] Coronavirus (PCR) SARS-CoV-2 IgG Ab 04/11/20 04/11/20 05:22 05:22 WBC 11.8 H MCH 27 L RDW 17.2 H Plt Count Lymph % (Auto) [place] % (Auto) 8.5 H Lymph # (Auto) [place] # (Auto) 1.0 H Eos # (Auto) 0.5 H Seg Neutrophils % Seg Neuts % (Manual) Lymphocytes % (Manual) Seg Neutrophils # 8.3 H Seg Neutrophils # Man Lymphocytes # (Manual) Monocytes # (Manual) PT D-Dimer Sodium Potassium Chloride Carbon Dioxide BUN Glucose Ferritin Lactate Dehydrogenase C-Reactive Protein Albumin 3.3 L Total Protein 6.1 L Ur Specific [place] Coronavirus (PCR) SARS-CoV-2 IgG Ab
[2020-04-11] MEDS: AMITRIPTYLINE 10 MG TAB PO SCH (22:35)
[2020-04-11] MEDS: ENOXAPARIN 40 MG/0.4 ML INJ SUB-Q SCH (22:36)
[2020-04-11] MEDS: traZODone 100 MG TAB PO SCH (22:36)
[2020-04-12] MEDS: BENZONATATE 100 MG CAP PO SCH ×3 (05:39→22:32)
--- NOTE | 2020-04-12 06:53 | Progress Note ---
Assessment and Plan Assessment and Plan - Patient Problems (1) Sepsis Current Visit: Yes Status: Acute Plan to address problem: Continue IV antibiotics (2) Acute hypoxemic respiratory failure Current Visit: Yes Status: Acute Plan to address problem: Supplemental oxygen, nebulizer therapy, pulse oximetry, prone position while in bed, pulmonary toilet. On oxygen 6 to 8 L Steroids increased by Dr Alva Pulmonary consult appreciated Home oxygen and concentrator arranged (3) Pneumonia Current Visit: Yes Status: Acute Qualifiers: Laterality: bilateral Plan to address problem: Pneumonia protocol: Chest x-ray, CBC, CMP, nebulizer therapy, pulse oximetry, IV antibiotic therapy, blood culture, pulmonary toilet. (4) COVID-19 virus infection Current Visit: Yes Status: Acute Plan to address problem: Coronavirus positive Continue dexamethasone 6 mg IV/p.o. daily for 10 days Continue remdesivir total 5 days Continue cefepime every 12 hours Check MRSA PCR pending Monitor liver function test on remdesivir Sinus Covid 2 IgG is positive patient is not a candidate for Covid convalescent plasma Patient is not a candidate for Covid positive convalescent plasma Patient on 6 L nasal cannula oxygen Improving (5) COPD (chronic obstructive pulmonary disease) Current Visit: Yes Status: Acute Qualifiers: Chronic bronchitis type: unspecified Plan to address problem: IV steroid therapy, supportive care, supplemental oxygen, IV antibiotic therapy. (6) GERD (gastroesophageal reflux disease) Current Visit: Yes Status: Acute Qualifiers: Esophagitis presence: without esophagitis Qualified Code(s): K21.9 - Gastro-esophageal reflux disease without esophagitis Plan to address problem: PPI therapy, supportive care (7) Hypertension Current Visit: Yes Status: Acute Qualifiers: Hypertension type: essential hypertension Qualified Code(s): I10 - Essential (primary) hypertension Plan to address problem: Monitor blood pressure every shift, continue medical management. (8) Hyperlipidemia Current Visit: Yes Status: Acute Qualifiers: Hyperlipidemia type: mixed hyperlipidemia Qualified Code(s): E78.2 - Mixed hyperlipidemia Plan to address problem: Lipid panel, statin therapy, balanced diet, low-cholesterol diet. (9) DVT prophylaxis Current Visit: Yes Status: Acute Plan to address problem: SCD to bilateral lower extremities while in bed, prophylactic anticoagulation (10) hypokalemia Supplemented Subjective Date of service: 04/11/20 Principal diagnosis: COVID/COPD Interval history: 64 YO Female with COPD, GERD, HTN, HLD, Anxiety, OA, Asthma Mild Intermittent, presents to ED for evaluation. Patient states that she has "not been feeling well" over the past 5 days with persistently worsening symptoms over the same timeframe. Patient states that she has experienced subjective fever, fatigue, muscle aches, generalized weakness, malaise, dry cough, decreased exercise tolerance, loss of sense of smell, loss of sense of taste, shortness of breath, nausea, multiple loose stools, and diminished oral intake. PT transported to [facility] via private vehicle for further care and evaluation of the aforementioned s ymptoms. The patient was seen and evaluated in the emergency department. All lab and imaging studies reviewed. The patient was found to be tachypneic with respiratory rate in the 30s as well as tachycardic with a pulse rate of 121, and a temperature of 101.9 F. Patient also found to have a pulse oximetry of 86% with exertion while on room air which is consistent with acute hypoxemic respiratory failure. The patient was also found to have a chest x-ray with bilateral pneumonia as well as as well as sepsis. Patient admitted to medical floor and initiated sepsis protocol. Patient also initiated on coronavirus protocol. Patient denies chills, chest pain, palpitations, productive cough, skin rash, recent ill contacts, or known exposure to COVID-19. Prior admission on 01/07/2020 reviewed. All medication listed at time of admission has been reconciled. Advanced care planning conducted in ED. Interval history: 64 YO Female HD #2 with acute hypoxemic respiratory failure, bilateral pneumonia, sepsis, Covid PCR pending, COPD, GERD, HTN, HLD, Anxiety, OA, Asthma Mild Intermittent. Patient resting comfortably in bed. Patient acknowledges i mprovement in shortness of breath. Patient denies pain. Day 3 03/15/2020\\ Patient on high flow oxygen Continue IV Decadron and remdesivir Day #4 03/16/2020 Patient on high flow oxygen Continue IV Decadron and IV remdesivir Day#5 03/17/2020 Continue IV Decadron and IV remdesivir Patient on 10 L nasal cannula oxygen Day #6 03/18/2020 Patient on 10 L nasal cannula oxygen 03/19/2020 Day #7 Patient on high flow oxygen Day # 8 03/20/20 Patient on high flow oxygen 03/21/20 On High flow oxygen\\ 03/22/2020 Patient on high flow oxygen from 40 L Patient does not keep her oxygen consistently as the nursing staff and respiratory therapist to decrease oxygen levels 03/23/2020 Patient still on high flow oxygen Alert and oriented and cheerful 03/24/20 Patient on high flow oxygen 04/09/2020 Patient is on 6 L nasal cannula oxygen 04/10/2020 On 6 L nasal cannula oxygen 04/11/2020 On 8 L nasal cannula oxygen Patient is in some distress Objective - Constitutional Vitals: Vital Signs - 12hr 04/11/20 04/11/20 04/11/20 20:00 22:27 22:42 Temperature 97.5 F L Pulse Rate 105 H 105 H Respiratory 20 Rate Blood Pressure 117/57 117/57 O2 Sat by Pulse 96 96 Oximetry 04/12/20 04:48 Temperature 97.7 F Pulse Rate 86 Respiratory 20 Rate Blood Pressure 114/58 O2 Sat by Pulse 97 Oximetry General appearance: Present: no acute distress, mild distress, well-nourished - EENT Eyes: PERRL, EOM intact ENT: hearing intact, clear oral mucosa Ears: bilateral: normal - Neck Neck: supple, normal ROM - Respiratory Respiratory effort: normal Respiratory: bilateral: CTA - Breasts Breasts: normal - Cardiovascular Heart rate: 88 Rhythm: regular Heart Sounds: Present: S1 & S2. Absent: gallop, rub Extremities: pulses intact, No edema, normal color, Full ROM - Gastrointestinal General gastrointestinal: Present: soft, non-tender, non-distended, normal bowel sounds - Genitourinary Female genitourinary: normal - Integumentary Integumentary: clear, warm, dry - Musculoskeletal Musculoskeletal: 1, strength equal bilaterally - Neurologic Neurologic: moves all extremities - Psychiatric Psychiatric: memory intact, appropriate mood/affect, intact judgment & insight - Allied health notes Allied health notes reviewed: nursing, case management - Labs CBC & Chem 7: 04/11/20 05:22 04/08/20 04:51 Labs: Abnormal lab results 04/11/20 04/11/20 Range/Units 05:22 05:22 WBC 11.8 H (4.5-11.0) K/mm3 MCH 27 L (28-32) pg RDW 17.2 H (13.2-15.2) % [place] % (Auto) 8.5 H (0.0-7.3) % [place] # (Auto) 1.0 H (0.0-0.8) K/mm3 Eos # (Auto) 0.5 H (0.0-0.4) K/mm3 Seg Neutrophils # 8.3 H (1.8-7.7) K/mm3 Total Protein 6.1 L (6.3-8.2) g/dL Albumin 3.3 L (3.9-5) g/dL HEART Score - HEART Score Troponin: Troponin T < 0.010 ng/mL (0.00-0.029) 03/13/20 16:24
[2020-04-12] MEDS: GABAPENTIN 300 MG CAP PO SCH ×3 (08:00→22:33)
[2020-04-12] MEDS: OXYBUTYNIN 5 MG TAB PO SCH ×3 (08:00→22:33)
[2020-04-12] MEDS: FAMOTIDINE 20 MG TAB PO SCH ×2 (09:52→22:33)
[2020-04-12] MEDS: METOPROLOL TARTRATE 25 MG TAB PO SCH ×2 (09:53→22:35)
[2020-04-12] MEDS: lamoTRIgine 100 MG TAB PO SCH (09:53)
[2020-04-12] MEDS: DULoxetine 30 MG CAP PO SCH (09:53)
[2020-04-12] MEDS: ASCORBIC ACID 500 MG TAB PO SCH ×2 (09:53→22:56)
[2020-04-12] MEDS: MONTELUKAST 10 MG TAB PO SCH (09:53)
[2020-04-12] MEDS: ZINC SULFATE 220 MG CAP PO SCH ×2 (09:53→22:32)
[2020-04-12] MEDS: LITHIUM CARBONATE 150 MG CAP PO SCH ×2 (09:56→22:32)
--- NOTE | 2020-04-12 09:57 | Progress Note ---
Assessment and Plan 64 y/o female with acute on chronic respiratory failure secondary COVID 19 pneumonia. 04/12/20: No new recs for today. Please see note from 04/11. CM can reach out to [employer] company about larger concentrator if available. 04/11/20: Would not discharge on 5 liters at rest unless the company can provide a large concentrator (7-10) liters. Patient would need a small buffer incase she got into trouble with desats and being on the max for the concentrator is not appropriate. Continue to wean as tolerated. Suggest a short trial of diure sis if I/O are accurate. 1. steroids are now off. Continue to wean FiO2 for sats >88% 2. Ordered nasal saline to help with moisture and nose bleeds secondary to prolonged high flow. 3. Prone as tolerated during the day and sleep prone at night. Patient has been noncompliant with this. Did not prone again last night. 4. Guarded prognosis given prolonged high levels of flow and oxygen requir ements. However patient has improved significantly. 5. Now that stable on 2-3 liters, suggest walk test to determine oxygen needs with ambulation and if she can maintain adequate sats on 2-3 liters would have no objection with discharge. Subjective Date of service: 04/12/20 Principal diagnosis: COVID/COPD Interval history: No acute events. Still on 5 liters NC but sats documented in the high 90's Objective Vital Signs - 12hr 04/11/20 04/11/20 04/12/20 22:27 22:42 04:48 Temperature 97.5 F L 97.7 F Pulse Rate 105 H 105 H 86 Respiratory 20 20 Rate Blood Pressure 117/57 117/57 114/58 O2 Sat by Pulse 96 97 Oximetry Constitutional: alert, other (critically ill on HFNC) Eyes: non-icteric Neck: supple Effort: mildly labored Ascultation: Bilateral: clear, diminished breath sounds, wheezes Cardiovascular: other (tachy, RR; no mrg) Gastrointestinal: normoactive bowel sounds, soft, non-tender Integumentary: normal Extremities: no cyanosis, no edema, pink and warm Neurologic: normal mental status, non-focal exam, CN II-XII normal Psychiatric: mood appropriate, other (very fidgety) CBC and BMP: 04/11/20 05:22 04/08/20 04:51 ABG, PT/INR, D-dimer: PT/INR, D-dimer PT 11.8 Sec. (12.2-14.9) L 03/13/20 16:24 INR 0.89 (0.87-1.13) 03/13/20 16:24 D-Dimer 652.33 ng/mlDDU (0-234) H 04/02/20 05:32 Abnormal lab findings: Abnormal Labs 03/13/20 03/13/20 03/13/20 16:24 16:24 16:24 WBC MCH RDW 16.8 H Plt Count Lymph % (Auto) 8.5 L [place] % (Auto) Lymph # (Auto) 0.6 L [place] # (Auto) Eos # (Auto) Seg Neutrophils % 84.9 H Seg Neuts % (Manual) Lymphocytes % (Manual) Seg Neutrophils # Seg Neutrophils # Man Lymphocytes # (Manual) Monocytes # (Manual) PT 11.8 L D-Dimer 234.66 H Sodium 135 L Potassium 3.1 L Chloride Carbon Dioxide BUN Glucose 174 H Ferritin Lactate Dehydrogenase 277 H C-Reactive Protein 8.00 H Albumin 3.7 L Total Protein Ur Specific [place] Coronavirus (PCR) SARS-CoV-2 IgG Ab 03/13/20 03/14/20 03/14/20 16:24 08:02 08:02 WBC 3.9 L MCH RDW 16.3 H Plt Count Lymph % (Auto) [place] % (Auto) 9.5 H Lymph # (Auto) 0.7 L [place] # (Auto) Eos # (Auto) Seg Neutrophils % 72.9 H Seg Neuts % (Manual) Lymphocytes % (Manual) Seg Neutrophils # Seg Neutrophils # Man Lymphocytes # (Manual) Monocytes # (Manual) PT D-Dimer Sodium Potassium Chloride 107.4 H Carbon Dioxide BUN Glucose 174 H 142 H Ferritin Lactate Dehydrogenase 267 H C-Reactive Protein 8.10 H Albumin Total Protein Ur Specific [place] Coronavirus (PCR) SARS-CoV-2 IgG Ab 03/14/20 03/14/20 03/14/20 16:58 16:58 Unknown WBC MCH RDW Plt Count Lymph % (Auto) [place] % (Auto) Lymph # (Auto) [place] # (Auto) Eos # (Auto) Seg Neutrophils % Seg Neuts % (Manual) Lymphocytes % (Manual) Seg Neutrophils # Seg Neutrophils # Man Lymphocytes # (Manual) Monocytes # (Manual) PT D-Dimer Sodium Potassium Chloride Carbon Dioxide BUN Glucose Ferritin Lactate Dehydrogenase 277 H C-Reactive Protein 2.60 H Albumin Total Protein Ur Specific [place] Coronavirus (PCR) Positive A SARS-CoV-2 IgG Ab Reactive A 03/16/20 03/16/20 03/16/20 05:18 05:18 10:34 WBC MCH RDW 16.4 H Plt Count Lymph % (Auto) [place] % (Auto) 10.0 H Lymph # (Auto) [place] # (Auto) Eos # (Auto) Seg Neutrophils % Seg Neuts % (Manual) Lymphocytes % (Manual) Seg Neutrophils # Seg Neutrophils # Man Lymphocytes # (Manual) Monocytes # (Manual) PT D-Dimer 278.32 H Sodium Potassium 3.1 L Chloride Carbon Dioxide BUN Glucose Ferritin Lactate Dehydrogenase C-Reactive Protein Albumin 3.4 L Total Protein Ur Specific [place] Coronavirus (PCR) SARS-CoV-2 IgG Ab 03/16/20 03/17/20 03/18/20 10:34 21:24 05:58 WBC 14.8 H MCH RDW 15.8 H Plt Count Lymph % (Auto) 11.5 L [place] % (Auto) Lymph # (Auto) [place] # (Auto) 1.0 H Eos # (Auto) Seg Neutrophils % 81.3 H Seg Neuts % (Manual) Lymphocytes % (Manual) Seg Neutrophils # 12.0 H Seg Neutrophils # Man Lymphocytes # (Manual) Monocytes # (Manual) PT D-Dimer Sodium Potassium Chloride Carbon Dioxide BUN Glucose 182 H Ferritin Lactate Dehydrogenase 268 H 268 H C-Reactive Protein 2.10 H 4.90 H Albumin Total Protein Ur Specific [place] Coronavirus (PCR) SARS-CoV-2 IgG Ab 03/18/20 03/21/20 03/21/20 05:58 05:27 05:27 WBC 14.1 H MCH 27 L RDW 16.1 H Plt Count 513 H Lymph % (Auto) 11.5 L [place] % (Auto) 7.9 H Lymph # (Auto) [place] # (Auto) 1.1 H Eos # (Auto) Seg Neutrophils % 78.4 H Seg Neuts % (Manual) Lymphocytes % (Manual) Seg Neutrophils # 11.1 H Seg Neutrophils # Man Lymphocytes # (Manual) Monocytes # (Manual) PT D-Dimer Sodium Potassium 2.9 L* Chloride Carbon Dioxide 18 L BUN Glucose Ferritin Lactate Dehydrogenase C-Reactive Protein Albumin 3.6 L 3.6 L Total Protein Ur Specific [place] Coronavirus (PCR) SARS-CoV-2 IgG Ab 03/22/20 03/22/20 03/22/20 15:45 15:45 15:45 WBC MCH RDW Plt Count Lymph % (Auto) [place] % (Auto) Lymph # (Auto) [place] # (Auto) Eos # (Auto) Seg Neutrophils % Seg Neuts % (Manual) Lymphocytes % (Manual) Seg Neutrophils # Seg Neutrophils # Man Lymphocytes # (Manual) Monocytes # (Manual) PT D-Dimer 274.02 H Sodium Potassium Chloride Carbon Dioxide BUN Glucose Ferritin Lactate Dehydrogenase 259 H C-Reactive Protein 7.60 H Albumin Total Protein Ur Specific [place] Coronavirus (PCR) SARS-CoV-2 IgG Ab 03/26/20 03/26/20 03/27/20 05:45 05:45 08:21 WBC 34.9 H MCH RDW 15.9 H Plt Count 579 H Lymph % (Auto) [place] % (Auto) Lymph # (Auto) [place] # (Auto) Eos # (Auto) Seg Neutrophils % Seg Neuts % (Manual) Lymphocytes % (Manual) Seg Neutrophils # Seg Neutrophils # Man Lymphocytes # (Manual) Monocytes # (Manual) PT D-Dimer Sodium 130 L 130 L Potassium Chloride 86.0 L 88.5 L Carbon Dioxide 35 H BUN 22 H Glucose 227 H 326 H Ferritin Lactate Dehydrogenase 213 H C-Reactive Protein 34.50 H Albumin Total Protein Ur Specific [place] Coronavirus (PCR) SARS-CoV-2 IgG Ab 03/27/20 03/27/20 03/27/20 08:21 18:45 18:45 WBC 42.1 H* MCH RDW 16.3 H Plt Count Lymph % (Auto) [place] % (Auto) Lymph # (Auto) [place] # (Auto) Eos # (Auto) Seg Neutrophils % Seg Neuts % (Manual) 91.0 H Lymphocytes % (Manual) 2.0 L Seg Neutrophils # Seg Neutrophils # Man 38.3 H Lymphocytes # (Manual) 0.8 L Monocytes # (Manual) 1.7 H PT D-Dimer Sodium Potassium Chloride Carbon Dioxide BUN Glucose Ferritin 400.5 H Lactate Dehydrogenase C-Reactive Protein 49.70 H Albumin Total Protein Ur Specific [place] Coronavirus (PCR) SARS-CoV-2 IgG Ab 03/28/20 03/28/20 03/28/20 07:51 07:51 07:51 WBC 32.2 H MCH 27 L RDW 16.3 H Plt Count Lymph % (Auto) [place] % (Auto) Lymph # (Auto) [place] # (Auto) Eos # (Auto) Seg Neutrophils % Seg Neuts % (Manual) 86.0 H Lymphocytes % (Manual) 10.0 L Seg Neutrophils # Seg Neutrophils # Man 27.7 H Lymphocytes # (Manual) Monocytes # (Manual) 1.3 H PT D-Dimer 1182.25 H Sodium Potassium Chloride Carbon Dioxide BUN Glucose Ferritin 514.4 H Lactate Dehydrogenase C-Reactive Protein Albumin Total Protein Ur Specific [place] Coronavirus (PCR) SARS-CoV-2 IgG Ab 03/28/20 03/28/20 03/29/20 07:51 17:48 05:07 WBC MCH RDW Plt Count Lymph % (Auto) [place] % (Auto) Lymph # (Auto) [place] # (Auto) Eos # (Auto) Seg Neutrophils % Seg Neuts % (Manual) Lymphocytes % (Manual) Seg Neutrophils # Seg Neutrophils # Man Lymphocytes # (Manual) Monocytes # (Manual) PT D-Dimer Sodium 136 L Potassium Chloride 93.0 L Carbon Dioxide 35 H BUN Glucose 243 H Ferritin Lactate Dehydrogenase 218 H C-Reactive Protein 18.00 H Albumin Total Protein Ur Specific [place] 1.036 H Coronavirus (PCR) SARS-CoV-2 IgG Ab 03/29/20 03/29/20 03/30/20 05:07 14:39 05:09 WBC 22.0 H 11.4 H MCH 27 L 27 L RDW 16.0 H 16.1 H Plt Count Lymph % (Auto) [place] % (Auto) Lymph # (Auto) [place] # (Auto) Eos # (Auto) Seg Neutrophils % Seg Neuts % (Manual) Lymphocytes % (Manual) Seg Neutrophils # Seg Neutrophils # Man Lymphocytes # (Manual) Monocytes # (Manual) PT D-Dimer Sodium 131 L Potassium Chloride 91.7 L Carbon Dioxide 31 H BUN Glucose 328 H Ferritin Lactate Dehydrogenase C-Reactive Protein Albumin Total Protein Ur Specific [place] Coronavirus (PCR) SARS-CoV-2 IgG Ab 03/30/20 03/31/20 03/31/20 05:09 05:43 05:43 WBC MCH RDW Plt Count Lymph % (Auto) [place] % (Auto) Lymph # (Auto) [place] # (Auto) Eos # (Auto) Seg Neutrophils % Seg Neuts % (Manual) Lymphocytes % (Manual) Seg Neutrophils # Seg Neutrophils # Man Lymphocytes # (Manual) Monocytes # (Manual) PT D-Dimer 734.03 H Sodium 136 L Potassium Chloride 96.2 L Carbon Dioxide BUN Glucose 297 H Ferritin 404.1 H Lactate Dehydrogenase C-Reactive Protein Albumin Total Protein Ur Specific [place] Coronavirus (PCR) SARS-CoV-2 IgG Ab 03/31/20 04/02/20 04/02/20 05:43 05:32 05:32 WBC MCH RDW Plt Count Lymph % (Auto) [place] % (Auto) Lymph # (Auto) [place] # (Auto) Eos # (Auto) Seg Neutrophils % Seg Neuts % (Manual) Lymphocytes % (Manual) Seg Neutrophils # Seg Neutrophils # Man Lymphocytes # (Manual) Monocytes # (Manual) PT D-Dimer 652.33 H Sodium Potassium Chloride Carbon Dioxide BUN Glucose Ferritin Lactate Dehydrogenase C-Reactive Protein 3.10 H 2.50 H Albumin Total Protein Ur Specific [place] Coronavirus (PCR) SARS-CoV-2 IgG Ab 04/04/20 04/08/20 04/08/20 17:15 04:51 04:51 WBC 12.1 H MCH 27 L RDW 16.5 H Plt Count Lymph % (Auto) 11.4 L [place] % (Auto) Lymph # (Auto) [place] # (Auto) Eos # (Auto) 0.5 H Seg Neutrophils % 77.7 H Seg Neuts % (Manual) Lymphocytes % (Manual) Seg Neutrophils # 9.4 H Seg Neutrophils # Man Lymphocytes # (Manual) Monocytes # (Manual) PT D-Dimer Sodium 130 L 133 L Potassium 3.0 L 3.4 L Chloride 90.6 L 93.4 L Carbon Dioxide 32 H 31 H BUN Glucose 135 H 114 H Ferritin Lactate Dehydrogenase C-Reactive Protein Albumin Total Protein Ur Specific [place] Coronavirus (PCR) SARS-CoV-2 IgG Ab 04/11/20 04/11/20 05:22 05:22 WBC 11.8 H MCH 27 L RDW 17.2 H Plt Count Lymph % (Auto) [place] % (Auto) 8.5 H Lymph # (Auto) [place] # (Auto) 1.0 H Eos # (Auto) 0.5 H Seg Neutrophils % Seg Neuts % (Manual) Lymphocytes % (Manual) Seg Neutrophils # 8.3 H Seg Neutrophils # Man Lymphocytes # (Manual) Monocytes # (Manual) PT D-Dimer Sodium Potassium Chloride Carbon Dioxide BUN Glucose Ferritin Lactate Dehydrogenase C-Reactive Protein Albumin 3.3 L Total Protein 6.1 L Ur Specific [place] Coronavirus (PCR) SARS-CoV-2 IgG Ab
[2020-04-12] MEDS: SODIUM CHLORIDE NASAL SPRAY 44ML NS SCH ×4 (10:01→23:08)
--- NOTE | 2020-04-12 21:30 | Progress Note ---
Assessment and Plan Assessment and Plan - Patient Problems (1) Sepsis Current Visit: Yes Status: Acute Plan to address problem: Continue IV antibiotics (2) Acute hypoxemic respiratory failure Current Visit: Yes Status: Acute Plan to address problem: Supplemental oxygen, nebulizer therapy, pulse oximetry, prone position while in bed, pulmonary toilet. Patient's oxygen is increased to 10 L (3) Pneumonia Current Visit: Yes Status: Acute Qualifiers: Laterality: bilateral Plan to address problem: Pneumonia protocol: Chest x-ray, CBC, CMP, nebulizer therapy, pulse oximetry, IV antibiotic therapy, blood culture, pulmonary toilet. (4) COVID-19 virus infection Current Visit: Yes Status: Acute Plan to address problem: Coronavirus positive Continue dexamethasone 6 mg IV/p.o. daily for 10 days Continue remdesivir total 5 days Continue cefepime every 12 hours Check MRSA PCR pending Monitor liver function test on remdesivir Sinus Covid 2 IgG is positive patient is not a candidate for Covid convalescent plasma Patient is not a candidate for Covid positive convalescent plasma Patient on 6 L nasal cannula oxygen Worsening (5) COPD (chronic obstructive pulmonary disease) Current Visit: Yes Status: Acute Qualifiers: Chronic bronchitis type: unspecified Plan to address problem: IV steroid therapy, supportive care, supplemental oxygen, IV antibiotic therapy. (6) GERD (gastroesophageal reflux disease) Current Visit: Yes Status: Acute Qualifiers: Esophagitis presence: without esophagitis Qualified Code(s): K21.9 - Gastro-esophageal reflux disease without esophagitis Plan to address problem: PPI therapy, supportive care (7) Hypertension Current Visit: Yes Status: Acute Qualifiers: Hypertension type: essential hypertension Qualified Code(s): I10 - Essential (primary) hypertension Plan to address problem: Monitor blood pressure every shift, continue medical management. (8) Hyperlipidemia Current Visit: Yes Status: Acute Qualifiers: Hyperlipidemia type: mixed hyperlipidemia Qualified Code(s): E78.2 - Mixed hyperlipidemia Plan to address problem: Lipid panel, statin therapy, balanced diet, low-cholesterol diet. (9) DVT prophylaxis Current Visit: Yes Status: Acute Plan to address problem: SCD to bilateral lower extremities while in bed, prophylactic anticoagulation (10) hypokalemia Supplemented so basically here to make some changes Subjective Date of service: 04/12/20 Principal diagnosis: COVID/COPD Interval history: 64 YO Female with COPD, GERD, HTN, HLD, Anxiety, OA, Asthma Mild Intermittent, presents to ED for evaluation. Patient states that she has "not been feeling well" over the past 5 days with persistently worsening symptoms over the same timeframe. Patient states that she has experienced subjective fever, fatigue, muscle aches, generalized weakness, malaise, dry cough, decreased exercise tolerance, loss of sense of smell, loss of sense of taste, shortness of breath, nausea, multiple loose stools, and diminished oral intake. PT transported to [facility] via private vehicle for further care and evaluation of the aforementioned symptoms. The patient was seen and evaluated in the emergency department. All lab and imaging studies reviewed. The patient was found to be tachypneic with respiratory rate in the 30s as well as tachycardic with a pulse rate of 121, and a temperature of 101.9 F. Patient also found to have a pulse oximetry of 86% with exertion while on room air which is consistent with acute hypoxemic respiratory failure. The patient was also found to have a chest x-ray with bilateral pneumonia as well as as well as sepsis. Patient admitted to medical floor and initiated sepsis protocol. Patient also initiated on coronavirus protocol. Patient denies chills, chest pain, palpitations, productive cough, skin rash, recent ill contacts, or known exposure to COVID-19. Prior admission on 01/07/2020 reviewed. All medication listed at time of admission has been reconciled. Advanced care planning conducted in ED. Interval history: 64 YO Female HD #2 with acute hypoxemic respiratory failure, bilateral pneumo anatoly, sepsis, Covid PCR pending, COPD, GERD, HTN, HLD, Anxiety, OA, Asthma Mild Intermittent. Patient resting comfortably in bed. Patient acknowledges improvement in shortness of breath. Patient denies pain. Day 3 03/15/2020\\ Patient on high flow oxygen Continue IV Decadron and remdesivir Day #4 03/16/2020 Patient on high flow oxygen Continue IV Decadron and IV remdesivir Day#5 03/17/2020 Continue IV Decadron and IV remdesivir Patient on 10 L nasal cannula oxygen Day #6 03/18/2020 Patient on 10 L nasal cannula oxygen 03/19/2020 Day #7 Patient on high flow oxygen Day # 8 03/20/20 Patient on high flow oxygen 03/21/20 On High flow oxygen\\ 03/22/2020 Patient on high flow oxygen from 40 L Patient does not keep her oxygen consistently as the nursing staff and respiratory therapist to decrease oxygen levels 03/23/2020 Patient still on high flow oxygen Alert and oriented and cheerful 03/24/20 Patient on high flow oxygen 04/09/2020 Patient is on 6 L nasal cannula oxygen 04/10/2020 On 6 L nasal cannula oxygen 04/11/2020 On 8 L nasal cannula oxygen Patient is in some distress 04/12/2020 Patient on 10 L nasal cannula oxygen Her oxygen needs are going up She used to be on 6 L Objective - Constitutional Vitals: Vital Signs - 12hr 04/12/20 04/12/20 04/12/20 10:00 10:15 12:07 Temperature 98.4 F Pulse Rate 110 H Respiratory 22 Rate Blood Pressure 123/56 O2 Sat by Pulse 99 93 98 Oximetry 04/12/20 19:40 Temperature Pulse Rate Respiratory Rate Blood Pressure O2 Sat by Pulse 93 Oximetry General appearance: Present: mild distress, well-nourished - EENT Eyes: PERRL, EOM intact ENT: hearing intact, clear oral mucosa Ears: bilateral: normal - Neck Neck: supple, normal ROM - Respiratory Respiratory effort: normal Respiratory: bilateral: CTA, rhonchi (Scattered rhonchi) - Breasts Breasts: normal - Cardiovascular Heart rate: 86 Rhythm: regular Heart Sounds: Present: S1 & S2. Absent: gallop, rub Extremities: pulses intact, No edema, normal color, Full ROM - Gastrointestinal General gastrointestinal: Present: soft, non-tender, non-distended, normal bowel sounds - Genitourinary Female genitourinary: normal - Integumentary Integumentary: clear, warm, dry - Musculoskeletal Musculoskeletal: 1, strength equal bilaterally - Neurologic Neurologic: moves all extremities - Psychiatric Psychiatric: memory intact, appropriate mood/affect, intact judgment & insight - Labs CBC & Chem 7: 04/11/20 05:22 04/08/20 04:51 HEART Score - HEART Score Troponin: Troponin T < 0.010 ng/mL (0.00-0.029) 03/13/20 16:24
[2020-04-12] MEDS: AMITRIPTYLINE 10 MG TAB PO SCH (22:32)
[2020-04-12] MEDS: traZODone 100 MG TAB PO SCH (22:32)
[2020-04-12] MEDS: ENOXAPARIN 40 MG/0.4 ML INJ SUB-Q SCH (22:33)
[2020-04-13] MEDS: BENZONATATE 100 MG CAP PO SCH ×2 (05:00→13:26)
[2020-04-13] MEDS: METOPROLOL TARTRATE 25 MG TAB PO SCH ×2 (09:12→22:21)
[2020-04-13] MEDS: GABAPENTIN 300 MG CAP PO SCH ×3 (09:13→22:08)
[2020-04-13] MEDS: ASCORBIC ACID 500 MG TAB PO SCH ×2 (09:13→22:06)
[2020-04-13] MEDS: OXYBUTYNIN 5 MG TAB PO SCH ×3 (09:14→22:07)
[2020-04-13] MEDS: LITHIUM CARBONATE 150 MG CAP PO SCH (09:14)
[2020-04-13] MEDS: lamoTRIgine 100 MG TAB PO SCH (09:14)
[2020-04-13] MEDS: SODIUM CHLORIDE NASAL SPRAY 44ML NS SCH ×4 (09:14→22:20)
[2020-04-13] MEDS: DULoxetine 30 MG CAP PO SCH (09:14)
[2020-04-13] MEDS: FAMOTIDINE 20 MG TAB PO SCH ×2 (09:15→22:07)
[2020-04-13] MEDS: MONTELUKAST 10 MG TAB PO SCH (09:16)
[2020-04-13] MEDS: ZINC SULFATE 220 MG CAP PO SCH ×2 (09:16→22:07)
--- NOTE | 2020-04-13 13:20 | Progress Note ---
Assessment and Plan 64 y/o female with acute on chronic respiratory failure secondary COVID 19 pneumonia. 04/13/20: If she can remain stable on 3 liters and ambulatory sats are stable with this would have no objection with discharge on 3 liters with 5 liter concentrator at home. 04/12/20: No new recs for today. Please see note from 04/11. CM can reach out to [employer] company about larger concentrator if available. 04/11/20: Would not discharge on 5 liters at rest unless the company can provide a large concentrator (7-10) liters. Patient would need a small buffer incase she got into trouble with desats and being on the max for the concentrator is not appropriate. Continue to wean as tolerated. Suggest a short trial of diuresis if I/O are accurate. 1. steroids are now off. Continue to wean FiO2 for sats >88% 2. Ordered nasal saline to help with moisture and nose bleeds secondary to prolonged high flow. 3. Prone as tolerated during the day and sleep prone at night. Patient has been noncompliant with this. Did not prone again last night. 4. Guarded prognosis given prolonged high levels of flow and oxygen requirements. However patient has improved significantly. 5. Now that stable on 2-3 liters, suggest walk test to determine oxygen needs with ambulation and if she can maintain adequate sats on 2-3 liters would have no objection with discharge. Subjective Date of service: 04/13/20 Principal diagnosis: COVID/COPD Interval history: Decreased to 3 liters with good sats. Objective Vital Signs - 12hr 04/13/20 04/13/20 04/13/20 04:30 09:12 10:35 Temperature 97.6 F Pulse Rate 102 H Respiratory 16 Rate Blood Pressure 114/58 120/62 O2 Sat by Pulse 98 Oximetry 04/13/20 12:03 Temperature 97.3 F L Pulse Rate 99 H Respiratory 18 Rate Blood Pressure 109/59 O2 Sat by Pulse 92 Oximetry Constitutional: alert, other (critically ill on HFNC) Eyes: non-icteric Neck: supple Effort: mildly labored Ascultation: Bilateral: clear, diminished breath sounds, wheezes Cardiovascular: other (tachy, RR; no mrg) Gastrointestinal: normoactive bowel sounds, soft, non-tender Integumentary: normal Extremities: no cyanosis, no edema, pink and warm Neurologic: normal mental status, non-focal exam, CN II-XII normal Psychiatric: mood appropriate, other (very fidgety) CBC and BMP: 04/11/20 05:22 04/08/20 04:51 ABG, PT/INR, D-dimer: PT/INR, D-dimer PT 11.8 Sec. (12.2-14.9) L 03/13/20 16:24 INR 0.89 (0.87-1.13) 03/13/20 16:24 D-Dimer 652.33 ng/mlDDU (0-234) H 04/02/20 05:32 Abnormal lab findings: Abnormal Labs 03/13/20 03/13/20 03/13/20 16:24 16:24 16:24 WBC MCH RDW 16.8 H Plt Count Lymph % (Auto) 8.5 L [place] % (Auto) Lymph # (Auto) 0.6 L [place] # (Auto) Eos # (Auto) Seg Neutrophils % 84.9 H Seg Neuts % (Manual) Lymphocytes % (Manual) Seg Neutrophils # Seg Neutrophils # Man Lymphocytes # (Manual) Monocytes # (Manual) PT 11.8 L D-Dimer 234.66 H Sodium 135 L Potassium 3.1 L Chloride Carbon Dioxide BUN Glucose 174 H Ferritin Lactate Dehydrogenase 277 H C-Reactive Protein 8.00 H Albumin 3.7 L Total Protein Ur Specific [place] Coronavirus (PCR) SARS-CoV-2 IgG Ab 03/13/20 03/14/20 03/14/20 16:24 08:02 08:02 WBC 3.9 L MCH RDW 16.3 H Plt Count Lymph % (Auto) [place] % (Auto) 9.5 H Lymph # (Auto) 0.7 L [place] # (Auto) Eos # (Auto) Seg Neutrophils % 72.9 H Seg Neuts % (Manual) Lymphocytes % (Manual) Seg Neutrophils # Seg Neutrophils # Man Lymphocytes # (Manual) Monocytes # (Manual) PT D-Dimer Sodium Potassium Chloride 107.4 H Carbon Dioxide BUN Glucose 174 H 142 H Ferritin Lactate Dehydrogenase 267 H C-Reactive Protein 8.10 H Albumin Total Protein Ur Specific [place] Coronavirus (PCR) SARS-CoV-2 IgG Ab 03/14/20 03/14/20 03/14/20 16:58 16:58 Unknown WBC MCH RDW Plt Count Lymph % (Auto) [place] % (Auto) Lymph # (Auto) [place] # (Auto) Eos # (Auto) Seg Neutrophils % Seg Neuts % (Manual) Lymphocytes % (Manual) Seg Neutrophils # Seg Neutrophils # Man Lymphocytes # (Manual) Monocytes # (Manual) PT D-Dimer Sodium Potassium Chloride Carbon Dioxide BUN Glucose Ferritin Lactate Dehydrogenase 277 H C-Reactive Protein 2.60 H Albumin Total Protein Ur Specific [place] Coronavirus (PCR) Positive A SARS-CoV-2 IgG Ab Reactive A 03/16/20 03/16/20 03/16/20 05:18 05:18 10:34 WBC MCH RDW 16.4 H Plt Count Lymph % (Auto) [place] % (Auto) 10.0 H Lymph # (Auto) [place] # (Auto) Eos # (Auto) Seg Neutrophils % Seg Neuts % (Manual) Lymphocytes % (Manual) Seg Neutrophils # Seg Neutrophils # Man Lymphocytes # (Manual) Monocytes # (Manual) PT D-Dimer 278.32 H Sodium Potassium 3.1 L Chloride Carbon Dioxide BUN Glucose Ferritin Lactate Dehydrogenase C-Reactive Protein Albumin 3.4 L Total Protein Ur Specific [place] Coronavirus (PCR) SARS-CoV-2 IgG Ab 03/16/20 03/17/20 03/18/20 10:34 21:24 05:58 WBC 14.8 H MCH RDW 15.8 H Plt Count Lymph % (Auto) 11.5 L [place] % (Auto) Lymph # (Auto) [place] # (Auto) 1.0 H Eos # (Auto) Seg Neutrophils % 81.3 H Seg Neuts % (Manual) Lymphocytes % (Manual) Seg Neutrophils # 12.0 H Seg Neutrophils # Man Lymphocytes # (Manual) Monocytes # (Manual) PT D-Dimer Sodium Potassium Chloride Carbon Dioxide BUN Glucose 182 H Ferritin Lactate Dehydrogenase 268 H 268 H C-Reactive Protein 2.10 H 4.90 H Albumin Total Protein Ur Specific [place] Coronavirus (PCR) SARS-CoV-2 IgG Ab 03/18/20 03/21/20 03/21/20 05:58 05:27 05:27 WBC 14.1 H MCH 27 L RDW 16.1 H Plt Count 513 H Lymph % (Auto) 11.5 L [place] % (Auto) 7.9 H Lymph # (Auto) [place] # (Auto) 1.1 H Eos # (Auto) Seg Neutrophils % 78.4 H Seg Neuts % (Manual) Lymphocytes % (Manual) Seg Neutrophils # 11.1 H Seg Neutrophils # Man Lymphocytes # (Manual) Monocytes # (Manual) PT D-Dimer Sodium Potassium 2.9 L* Chloride Carbon Dioxide 18 L BUN Glucose Ferritin Lactate Dehydrogenase C-Reactive Protein Albumin 3.6 L 3.6 L Total Protein Ur Specific [place] Coronavirus (PCR) SARS-CoV-2 IgG Ab 03/22/20 03/22/20 03/22/20 15:45 15:45 15:45 WBC MCH RDW Plt Count Lymph % (Auto) [place] % (Auto) Lymph # (Auto) [place] # (Auto) Eos # (Auto) Seg Neutrophils % Seg Neuts % (Manual) Lymphocytes % (Manual) Seg Neutrophils # Seg Neutrophils # Man Lymphocytes # (Manual) Monocytes # (Manual) PT D-Dimer 274.02 H Sodium Potassium Chloride Carbon Dioxide BUN Glucose Ferritin Lactate Dehydrogenase 259 H C-Reactive Protein 7.60 H Albumin Total Protein Ur Specific [place] Coronavirus (PCR) SARS-CoV-2 IgG Ab 03/26/20 03/26/20 03/27/20 05:45 05:45 08:21 WBC 34.9 H MCH RDW 15.9 H Plt Count 579 H Lymph % (Auto) [place] % (Auto) Lymph # (Auto) [place] # (Auto) Eos # (Auto) Seg Neutrophils % Seg Neuts % (Manual) Lymphocytes % (Manual) Seg Neutrophils # Seg Neutrophils # Man Lymphocytes # (Manual) Monocytes # (Manual) PT D-Dimer Sodium 130 L 130 L Potassium Chloride 86.0 L 88.5 L Carbon Dioxide 35 H BUN 22 H Glucose 227 H 326 H Ferritin Lactate Dehydrogenase 213 H C-Reactive Protein 34.50 H Albumin Total Protein Ur Specific [place] Coronavirus (PCR) SARS-CoV-2 IgG Ab 03/27/20 03/27/20 03/27/20 08:21 18:45 18:45 WBC 42.1 H* MCH RDW 16.3 H Plt Count Lymph % (Auto) [place] % (Auto) Lymph # (Auto) [place] # (Auto) Eos # (Auto) Seg Neutrophils % Seg Neuts % (Manual) 91.0 H Lymphocytes % (Manual) 2.0 L Seg Neutrophils # Seg Neutrophils # Man 38.3 H Lymphocytes # (Manual) 0.8 L Monocytes # (Manual) 1.7 H PT D-Dimer Sodium Potassium Chloride Carbon Dioxide BUN Glucose Ferritin 400.5 H Lactate Dehydrogenase C-Reactive Protein 49.70 H Albumin Total Protein Ur Specific [place] Coronavirus (PCR) SARS-CoV-2 IgG Ab 03/28/20 03/28/20 03/28/20 07:51 07:51 07:51 WBC 32.2 H MCH 27 L RDW 16.3 H Plt Count Lymph % (Auto) [place] % (Auto) Lymph # (Auto) [place] # (Auto) Eos # (Auto) Seg Neutrophils % Seg Neuts % (Manual) 86.0 H Lymphocytes % (Manual) 10.0 L Seg Neutrophils # Seg Neutrophils # Man 27.7 H Lymphocytes # (Manual) Monocytes # (Manual) 1.3 H PT D-Dimer 1182.25 H Sodium Potassium Chloride Carbon Dioxide BUN Glucose Ferritin 514.4 H Lactate Dehydrogenase C-Reactive Protein Albumin Total Protein Ur Specific [place] Coronavirus (PCR) SARS-CoV-2 IgG Ab 03/28/20 03/28/20 03/29/20 07:51 17:48 05:07 WBC MCH RDW Plt Count Lymph % (Auto) [place] % (Auto) Lymph # (Auto) [place] # (Auto) Eos # (Auto) Seg Neutrophils % Seg Neuts % (Manual) Lymphocytes % (Manual) Seg Neutrophils # Seg Neutrophils # Man Lymphocytes # (Manual) Monocytes # (Manual) PT D-Dimer Sodium 136 L Potassium Chloride 93.0 L Carbon Dioxide 35 H BUN Glucose 243 H Ferritin Lactate Dehydrogenase 218 H C-Reactive Protein 18.00 H Albumin Total Protein Ur Specific [place] 1.036 H Coronavirus (PCR) SARS-CoV-2 IgG Ab 03/29/20 03/29/20 03/30/20 05:07 14:39 05:09 WBC 22.0 H 11.4 H MCH 27 L 27 L RDW 16.0 H 16.1 H Plt Count Lymph % (Auto) [place] % (Auto) Lymph # (Auto) [place] # (Auto) Eos # (Auto) Seg Neutrophils % Seg Neuts % (Manual) Lymphocytes % (Manual) Seg Neutrophils # Seg Neutrophils # Man Lymphocytes # (Manual) Monocytes # (Manual) PT D-Dimer Sodium 131 L Potassium Chloride 91.7 L Carbon Dioxide 31 H BUN Glucose 328 H Ferritin Lactate Dehydrogenase C-Reactive Protein Albumin Total Protein Ur Specific [place] Coronavirus (PCR) SARS-CoV-2 IgG Ab 03/30/20 03/31/20 03/31/20 05:09 05:43 05:43 WBC MCH RDW Plt Count Lymph % (Auto) [place] % (Auto) Lymph # (Auto) [place] # (Auto) Eos # (Auto) Seg Neutrophils % Seg Neuts % (Manual) Lymphocytes % (Manual) Seg Neutrophils # Seg Neutrophils # Man Lymphocytes # (Manual) Monocytes # (Manual) PT D-Dimer 734.03 H Sodium 136 L Potassium Chloride 96.2 L Carbon Dioxide BUN Glucose 297 H Ferritin 404.1 H Lactate Dehydrogenase C-Reactive Protein Albumin Total Protein Ur Specific [place] Coronavirus (PCR) SARS-CoV-2 IgG Ab 03/31/20 04/02/20 04/02/20 05:43 05:32 05:32 WBC MCH RDW Plt Count Lymph % (Auto) [place] % (Auto) Lymph # (Auto) [place] # (Auto) Eos # (Auto) Seg Neutrophils % Seg Neuts % (Manual) Lymphocytes % (Manual) Seg Neutrophils # Seg Neutrophils # Man Lymphocytes # (Manual) Monocytes # (Manual) PT D-Dimer 652.33 H Sodium Potassium Chloride Carbon Dioxide BUN Glucose Ferritin Lactate Dehydrogenase C-Reactive Protein 3.10 H 2.50 H Albumin Total Protein Ur Specific [place] Coronavirus (PCR) SARS-CoV-2 IgG Ab 04/04/20 04/08/20 04/08/20 17:15 04:51 04:51 WBC 12.1 H MCH 27 L RDW 16.5 H Plt Count Lymph % (Auto) 11.4 L [place] % (Auto) Lymph # (Auto) [place] # (Auto) Eos # (Auto) 0.5 H Seg Neutrophils % 77.7 H Seg Neuts % (Manual) Lymphocytes % (Manual) Seg Neutrophils # 9.4 H Seg Neutrophils # Man Lymphocytes # (Manual) Monocytes # (Manual) PT D-Dimer Sodium 130 L 133 L Potassium 3.0 L 3.4 L Chloride 90.6 L 93.4 L Carbon Dioxide 32 H 31 H BUN Glucose 135 H 114 H Ferritin Lactate Dehydrogenase C-Reactive Protein Albumin Total Protein Ur Specific [place] Coronavirus (PCR) SARS-CoV-2 IgG Ab 04/11/20 04/11/20 05:22 05:22 WBC 11.8 H MCH 27 L RDW 17.2 H Plt Count Lymph % (Auto) [place] % (Auto) 8.5 H Lymph # (Auto) [place] # (Auto) 1.0 H Eos # (Auto) 0.5 H Seg Neutrophils % Seg Neuts % (Manual) Lymphocytes % (Manual) Seg Neutrophils # 8.3 H Seg Neutrophils # Man Lymphocytes # (Manual) Monocytes # (Manual) PT D-Dimer Sodium Potassium Chloride Carbon Dioxide BUN Glucose Ferritin Lactate Dehydrogenase C-Reactive Protein Albumin 3.3 L Total Protein 6.1 L Ur Specific [place] Coronavirus (PCR) SARS-CoV-2 IgG Ab
[2020-04-13] MEDS: oxyCODONE /ACETAMINOPHEN 5-325MG TAB PO PRN (13:26)
[2020-04-13] MEDS: AMITRIPTYLINE 10 MG TAB PO SCH (22:13)
[2020-04-13] MEDS: ENOXAPARIN 40 MG/0.4 ML INJ SUB-Q SCH (22:13)
--- NOTE | 2020-04-13 23:40 | Progress Note ---
Assessment and Plan Assessment and Plan - Patient Problems (1) Sepsis Current Visit: Yes Status: Acute Plan to address problem: Continue IV antibiotics (2) Acute hypoxemic respiratory failure Current Visit: Yes Status: Acute Plan to address problem: Supplemental oxygen, nebulizer therapy, pulse oximetry, prone position while in bed, pulmonary toilet. Patient's oxygen is increased to 10 L (3) Pneumonia Current Visit: Yes Status: Acute Qualifiers: Laterality: bilateral Plan to address problem: Pneumonia protocol: Chest x-ray, CBC, CMP, nebulizer therapy, pulse oximetry, IV antibiotic therapy, blood culture, pulmonary toilet. (4) COVID-19 virus infection Current Visit: Yes Status: Acute Plan to address problem: Coronavirus positive Continue dexamethasone 6 mg IV/p.o. daily for 10 days Continue remdesivir total 5 days Continue cefepime every 12 hours Check MRSA PCR pending Monitor liver function test on remdesivir Sinus Covid 2 IgG is positive patient is not a candidate for Covid convalescent plasma Patient is not a candidate for Covid positive convalescent plasma Patient on 6 L nasal cannula oxygen Worsening (5) COPD (chronic obstructive pulmonary disease) Current Visit: Yes Status: Acute Qualifiers: Chronic bronchitis type: unspecified Plan to address problem: IV steroid therapy, supportive care, supplemental oxygen, IV antibiotic therapy. (6) GERD (gastroesophageal reflux disease) Current Visit: Yes Status: Acute Qualifiers: Esophagitis presence: without esophagitis Qualified Code(s): K21.9 - Gastro-esophageal reflux disease without esophagitis Plan to address problem: PPI therapy, supportive care (7) Hypertension Current Visit: Yes Status: Acute Qualifiers: Hypertension type: essential hypertension Qualified Code(s): I10 - Essential (primary) hypertension Plan to address problem: Monitor blood pressure every shift, continue medical management. (8) Hyperlipidemia Current Visit: Yes Status: Acute Qualifiers: Hyperlipidemia type: mixed hyperlipidemia Qualified Code(s): E78.2 - Mixed hyperlipidemia Plan to address problem: Lipid panel, statin therapy, balanced diet, low-cholesterol diet. (9) DVT prophylaxis Current Visit: Yes Status: Acute Plan to address problem: SCD to bilateral lower extremities while in bed, prophylactic anticoagulation (10) hypokalemia Supplemented so basically here to make some changes Subjective Date of service: 04/13/20 Principal diagnosis: COVID/COPD Interval history: 64 YO Female with COPD, GERD, HTN, HLD, Anxiety, OA, Asthma Mild Intermittent, presents to ED for evaluation. Patient states that she has "not been feeling well" over the past 5 days with persistently worsening symptoms over the same timeframe. Patient states that she has experienced subjective fever, fatigue, muscle aches, generalized weakness, malaise, dry cough, decreased exercise tolerance, loss of sense of smell, loss of sense of taste, shortness of breath, nausea, multiple loose stools, and diminished oral intake. PT transported to [facility] via private vehicle for further care and evaluation of the aforementioned symptoms. The patient was seen and evaluated in the emergency department. All lab and imaging studies reviewed. The patient was found to be tachypneic with respiratory rate in the 30s as well as tachycardic with a pulse rate of 121, and a temperature of 101.9 F. Patient also found to have a pulse oximetry of 86% with exertion while on room air which is consistent with acute hypoxemic respiratory failure. The patient was also found to have a chest x-ray with bilateral pneumonia as well as as well as sepsis. Patient admitted to medical floor and initiated sepsis protocol. Patient also initiated on coronavirus protocol. Patient denies chills, chest pain, palpitations, productive cough, skin rash, recent ill contacts, or known exposure to COVID-19. Prior admission on 01/07/2020 reviewed. All medication listed at time of admission has been reconciled. Advanced care planning conducted in ED. Interval history: 64 YO Female HD #2 with acute hypoxemic respiratory failure, bilateral pneumo anatoly, sepsis, Covid PCR pending, COPD, GERD, HTN, HLD, Anxiety, OA, Asthma Mild Intermittent. Patient resting comfortably in bed. Patient acknowledges improvement in shortness of breath. Patient denies pain. Day 3 03/15/2020\\ Patient on high flow oxygen Continue IV Decadron and remdesivir Day #4 03/16/2020 Patient on high flow oxygen Continue IV Decadron and IV remdesivir Day#5 03/17/2020 Continue IV Decadron and IV remdesivir Patient on 10 L nasal cannula oxygen Day #6 03/18/2020 Patient on 10 L nasal cannula oxygen 03/19/2020 Day #7 Patient on high flow oxygen Day # 8 03/20/20 Patient on high flow oxygen 03/21/20 On High flow oxygen\\ 03/22/2020 Patient on high flow oxygen from 40 L Patient does not keep her oxygen consistently as the nursing staff and respiratory therapist to decrease oxygen levels 03/23/2020 Patient still on high flow oxygen Alert and oriented and cheerful 03/24/20 Patient on high flow oxygen 04/09/2020 Patient is on 6 L nasal cannula oxygen 04/10/2020 On 6 L nasal cannula oxygen 04/11/2020 On 8 L nasal cannula oxygen Patient is in some distress 04/12/2020 Patient on 10 L nasal cannula oxygen Her oxygen needs are going up She used to be on 6 L 04/13/2020 On 10 L oxygen Objective - Constitutional Vitals: Vital Signs - 12hr 04/13/20 04/13/20 04/13/20 12:03 18:21 22:21 Temperature 97.3 F L 97.7 F Pulse Rate 99 H 119 H 112 H Respiratory 18 24 Rate Blood Pressure 109/59 125/59 138/55 O2 Sat by Pulse 92 93 Oximetry 04/13/20 22:44 Temperature Pulse Rate Respiratory Rate Blood Pressure O2 Sat by Pulse 96 Oximetry General appearance: Present: mild distress, well-nourished - EENT Eyes: PERRL, EOM intact ENT: hearing intact, clear oral mucosa Ears: bilateral: normal - Neck Neck: supple, normal ROM - Respiratory Respiratory effort: normal Respiratory: bilateral: CTA - Breasts Breasts: normal - Cardiovascular Heart rate: 78 Rhythm: regular Heart Sounds: Present: S1 & S2. Absent: gallop, rub Extremities: pulses intact, No edema, normal color, Full ROM - Gastrointestinal General gastrointestinal: Present: soft, non-tender, non-distended, normal bowel sounds - Genitourinary Female genitourinary: normal - Integumentary Integumentary: clear, warm, dry - Musculoskeletal Musculoskeletal: 1, strength equal bilaterally - Neurologic Neurologic: moves all extremities - Psychiatric Psychiatric: memory intact, appropriate mood/affect, intact judgment & insight - Labs CBC & Chem 7: 04/17/20 11:10 04/17/20 11:10 HEART Score - HEART Score Troponin: Troponin T < 0.010 ng/mL (0.00-0.029) 03/13/20 16:24
[2020-04-14] MEDS: ALPRAZolam 0.5 MG TAB PO PRN ×2 (06:22→22:04)
[2020-04-14] MEDS: GABAPENTIN 300 MG CAP PO SCH ×3 (07:56→21:16)
[2020-04-14] MEDS: oxyCODONE /ACETAMINOPHEN 5-325MG TAB PO PRN (07:56)
[2020-04-14] MEDS: OXYBUTYNIN 5 MG TAB PO SCH ×3 (07:56→20:42)
--- NOTE | 2020-04-14 08:31 | Progress Note ---
Assessment and Plan 64 y/o female with acute on chronic respiratory failure secondary COVID 19 pneumonia. 04/14/20: Will discuss with dayshift RT what happened overnight to increase flow on oxygen therapy. Unfortunately, she cannot be discharged on 15 liters of flow. 04/13/20: If she can remain stable on 3 liters and ambulatory sats are stable with this would have no objection with discharge on 3 liters with 5 liter concentrator at home. 04/12/20: No new recs for today. Please see note from 04/11. CM can reach out to [employer] company about larger concentrator if available. 04/11/20: Would not discharge on 5 liters at rest unless the company can provide a large concentrator (7-10) liters. Patient would need a small buffer incase she got into trouble with desats and being on the max for the concentrator is not appropriate. Continue to wean as tolerated. Suggest a short trial of diuresis if I/O are accurate. 1. steroids are now off. Continue to wean FiO2 for sats >88% 2. Ordered nasal saline to help with moisture and nose bleeds secondary to prolonged high flow. 3. Prone as tolerated during the day and sleep prone at night. Patient has been noncompliant with this. Did not prone again last night. 4. Guarded prognosis given prolonged high levels of flow and oxygen requirements. However patient has improved significantly. 5. Now that stable on 2-3 liters, suggest walk test to determine oxygen needs with ambulation and if she can maintain adequate sats on 2-3 liters would have no objection with discharge. Subjective Date of service: 04/14/20 Principal diagnosis: COVID/COPD Interval history: Per documentation from last night, now back on 15 liters. No documentation of desaturation until 630 this am and per nursing patient had pulled O2 off. Once back on was in the low to mid 90's but the amount was not specified. Afebrile. Labs stable. Objective Vital Signs - 12hr 04/13/20 04/13/20 04/14/20 22:21 22:44 00:25 Temperature 79.9 F L Pulse Rate 112 H 133 H Respiratory 22 Rate Blood Pressure 138/55 Blood Pressure 124/74 [Right] O2 Sat by Pulse 96 94 Oximetry 04/14/20 04/14/20 01:00 06:03 Temperature 97.9 F 98.7 F Pulse Rate 100 H Respiratory 25 H Rate Blood Pressure 141/50 Blood Pressure [Right] O2 Sat by Pulse 97 Oximetry Constitutional: alert, other (critically ill on HFNC) Eyes: non-icteric Neck: supple Effort: mildly labored Ascultation: Bilateral: clear, diminished breath sounds, wheezes Cardiovascular: other (tachy, RR; no mrg) Gastrointestinal: normoactive bowel sounds, soft, non-tender Integumentary: normal Extremities: no cyanosis, no edema, pink and warm Neurologic: normal mental status, non-focal exam, CN II-XII normal Psychiatric: mood appropriate, other (very fidgety) CBC and BMP: 04/11/20 05:22 04/08/20 04:51 ABG, PT/INR, D-dimer: PT/INR, D-dimer PT 11.8 Sec. (12.2-14.9) L 03/13/20 16:24 INR 0.89 (0.87-1.13) 03/13/20 16:24 D-Dimer 652.33 ng/mlDDU (0-234) H 04/02/20 05:32 Abnormal lab findings: Abnormal Labs 03/13/20 03/13/20 03/13/20 16:24 16:24 16:24 WBC MCH RDW 16.8 H Plt Count Lymph % (Auto) 8.5 L [place] % (Auto) Lymph # (Auto) 0.6 L [place] # (Auto) Eos # (Auto) Seg Neutrophils % 84.9 H Seg Neuts % (Manual) Lymphocytes % (Manual) Seg Neutrophils # Seg Neutrophils # Man Lymphocytes # (Manual) Monocytes # (Manual) PT 11.8 L D-Dimer 234.66 H Sodium 135 L Potassium 3.1 L Chloride Carbon Dioxide BUN Glucose 174 H Ferritin Lactate Dehydrogenase 277 H C-Reactive Protein 8.00 H Albumin 3.7 L Total Protein Ur Specific [place] Coronavirus (PCR) SARS-CoV-2 IgG Ab 03/13/20 03/14/20 03/14/20 16:24 08:02 08:02 WBC 3.9 L MCH RDW 16.3 H Plt Count Lymph % (Auto) [place] % (Auto) 9.5 H Lymph # (Auto) 0.7 L [place] # (Auto) Eos # (Auto) Seg Neutrophils % 72.9 H Seg Neuts % (Manual) Lymphocytes % (Manual) Seg Neutrophils # Seg Neutrophils # Man Lymphocytes # (Manual) Monocytes # (Manual) PT D-Dimer Sodium Potassium Chloride 107.4 H Carbon Dioxide BUN Glucose 174 H 142 H Ferritin Lactate Dehydrogenase 267 H C-Reactive Protein 8.10 H Albumin Total Protein Ur Specific [place] Coronavirus (PCR) SARS-CoV-2 IgG Ab 03/14/20 03/14/20 03/14/20 16:58 16:58 Unknown WBC MCH RDW Plt Count Lymph % (Auto) [place] % (Auto) Lymph # (Auto) [place] # (Auto) Eos # (Auto) Seg Neutrophils % Seg Neuts % (Manual) Lymphocytes % (Manual) Seg Neutrophils # Seg Neutrophils # Man Lymphocytes # (Manual) Monocytes # (Manual) PT D-Dimer Sodium Potassium Chloride Carbon Dioxide BUN Glucose Ferritin Lactate Dehydrogenase 277 H C-Reactive Protein 2.60 H Albumin Total Protein Ur Specific [place] Coronavirus (PCR) Positive A SARS-CoV-2 IgG Ab Reactive A 03/16/20 03/16/20 03/16/20 05:18 05:18 10:34 WBC MCH RDW 16.4 H Plt Count Lymph % (Auto) [place] % (Auto) 10.0 H Lymph # (Auto) [place] # (Auto) Eos # (Auto) Seg Neutrophils % Seg Neuts % (Manual) Lymphocytes % (Manual) Seg Neutrophils # Seg Neutrophils # Man Lymphocytes # (Manual) Monocytes # (Manual) PT D-Dimer 278.32 H Sodium Potassium 3.1 L Chloride Carbon Dioxide BUN Glucose Ferritin Lactate Dehydrogenase C-Reactive Protein Albumin 3.4 L Total Protein Ur Specific [place] Coronavirus (PCR) SARS-CoV-2 IgG Ab 03/16/20 03/17/20 03/18/20 10:34 21:24 05:58 WBC 14.8 H MCH RDW 15.8 H Plt Count Lymph % (Auto) 11.5 L [place] % (Auto) Lymph # (Auto) [place] # (Auto) 1.0 H Eos # (Auto) Seg Neutrophils % 81.3 H Seg Neuts % (Manual) Lymphocytes % (Manual) Seg Neutrophils # 12.0 H Seg Neutrophils # Man Lymphocytes # (Manual) Monocytes # (Manual) PT D-Dimer Sodium Potassium Chloride Carbon Dioxide BUN Glucose 182 H Ferritin Lactate Dehydrogenase 268 H 268 H C-Reactive Protein 2.10 H 4.90 H Albumin Total Protein Ur Specific [place] Coronavirus (PCR) SARS-CoV-2 IgG Ab 03/18/20 03/21/20 03/21/20 05:58 05:27 05:27 WBC 14.1 H MCH 27 L RDW 16.1 H Plt Count 513 H Lymph % (Auto) 11.5 L [place] % (Auto) 7.9 H Lymph # (Auto) [place] # (Auto) 1.1 H Eos # (Auto) Seg Neutrophils % 78.4 H Seg Neuts % (Manual) Lymphocytes % (Manual) Seg Neutrophils # 11.1 H Seg Neutrophils # Man Lymphocytes # (Manual) Monocytes # (Manual) PT D-Dimer Sodium Potassium 2.9 L* Chloride Carbon Dioxide 18 L BUN Glucose Ferritin Lactate Dehydrogenase C-Reactive Protein Albumin 3.6 L 3.6 L Total Protein Ur Specific [place] Coronavirus (PCR) SARS-CoV-2 IgG Ab 03/22/20 03/22/20 03/22/20 15:45 15:45 15:45 WBC MCH RDW Plt Count Lymph % (Auto) [place] % (Auto) Lymph # (Auto) [place] # (Auto) Eos # (Auto) Seg Neutrophils % Seg Neuts % (Manual) Lymphocytes % (Manual) Seg Neutrophils # Seg Neutrophils # Man Lymphocytes # (Manual) Monocytes # (Manual) PT D-Dimer 274.02 H Sodium Potassium Chloride Carbon Dioxide BUN Glucose Ferritin Lactate Dehydrogenase 259 H C-Reactive Protein 7.60 H Albumin Total Protein Ur Specific [place] Coronavirus (PCR) SARS-CoV-2 IgG Ab 03/26/20 03/26/20 03/27/20 05:45 05:45 08:21 WBC 34.9 H MCH RDW 15.9 H Plt Count 579 H Lymph % (Auto) [place] % (Auto) Lymph # (Auto) [place] # (Auto) Eos # (Auto) Seg Neutrophils % Seg Neuts % (Manual) Lymphocytes % (Manual) Seg Neutrophils # Seg Neutrophils # Man Lymphocytes # (Manual) Monocytes # (Manual) PT D-Dimer Sodium 130 L 130 L Potassium Chloride 86.0 L 88.5 L Carbon Dioxide 35 H BUN 22 H Glucose 227 H 326 H Ferritin Lactate Dehydrogenase 213 H C-Reactive Protein 34.50 H Albumin Total Protein Ur Specific [place] Coronavirus (PCR) SARS-CoV-2 IgG Ab 03/27/20 03/27/20 03/27/20 08:21 18:45 18:45 WBC 42.1 H* MCH RDW 16.3 H Plt Count Lymph % (Auto) [place] % (Auto) Lymph # (Auto) [place] # (Auto) Eos # (Auto) Seg Neutrophils % Seg Neuts % (Manual) 91.0 H Lymphocytes % (Manual) 2.0 L Seg Neutrophils # Seg Neutrophils # Man 38.3 H Lymphocytes # (Manual) 0.8 L Monocytes # (Manual) 1.7 H PT D-Dimer Sodium Potassium Chloride Carbon Dioxide BUN Glucose Ferritin 400.5 H Lactate Dehydrogenase C-Reactive Protein 49.70 H Albumin Total Protein Ur Specific [place] Coronavirus (PCR) SARS-CoV-2 IgG Ab 03/28/20 03/28/20 03/28/20 07:51 07:51 07:51 WBC 32.2 H MCH 27 L RDW 16.3 H Plt Count Lymph % (Auto) [place] % (Auto) Lymph # (Auto) [place] # (Auto) Eos # (Auto) Seg Neutrophils % Seg Neuts % (Manual) 86.0 H Lymphocytes % (Manual) 10.0 L Seg Neutrophils # Seg Neutrophils # Man 27.7 H Lymphocytes # (Manual) Monocytes # (Manual) 1.3 H PT D-Dimer 1182.25 H Sodium Potassium Chloride Carbon Dioxide BUN Glucose Ferritin 514.4 H Lactate Dehydrogenase C-Reactive Protein Albumin Total Protein Ur Specific [place] Coronavirus (PCR) SARS-CoV-2 IgG Ab 03/28/20 03/28/20 03/29/20 07:51 17:48 05:07 WBC MCH RDW Plt Count Lymph % (Auto) [place] % (Auto) Lymph # (Auto) [place] # (Auto) Eos # (Auto) Seg Neutrophils % Seg Neuts % (Manual) Lymphocytes % (Manual) Seg Neutrophils # Seg Neutrophils # Man Lymphocytes # (Manual) Monocytes # (Manual) PT D-Dimer Sodium 136 L Potassium Chloride 93.0 L Carbon Dioxide 35 H BUN Glucose 243 H Ferritin Lactate Dehydrogenase 218 H C-Reactive Protein 18.00 H Albumin Total Protein Ur Specific [place] 1.036 H Coronavirus (PCR) SARS-CoV-2 IgG Ab 03/29/20 03/29/20 03/30/20 05:07 14:39 05:09 WBC 22.0 H 11.4 H MCH 27 L 27 L RDW 16.0 H 16.1 H Plt Count Lymph % (Auto) [place] % (Auto) Lymph # (Auto) [place] # (Auto) Eos # (Auto) Seg Neutrophils % Seg Neuts % (Manual) Lymphocytes % (Manual) Seg Neutrophils # Seg Neutrophils # Man Lymphocytes # (Manual) Monocytes # (Manual) PT D-Dimer Sodium 131 L Potassium Chloride 91.7 L Carbon Dioxide 31 H BUN Glucose 328 H Ferritin Lactate Dehydrogenase C-Reactive Protein Albumin Total Protein Ur Specific [place] Coronavirus (PCR) SARS-CoV-2 IgG Ab 03/30/20 03/31/20 03/31/20 05:09 05:43 05:43 WBC MCH RDW Plt Count Lymph % (Auto) [place] % (Auto) Lymph # (Auto) [place] # (Auto) Eos # (Auto) Seg Neutrophils % Seg Neuts % (Manual) Lymphocytes % (Manual) Seg Neutrophils # Seg Neutrophils # Man Lymphocytes # (Manual) Monocytes # (Manual) PT D-Dimer 734.03 H Sodium 136 L Potassium Chloride 96.2 L Carbon Dioxide BUN Glucose 297 H Ferritin 404.1 H Lactate Dehydrogenase C-Reactive Protein Albumin Total Protein Ur Specific [place] Coronavirus (PCR) SARS-CoV-2 IgG Ab 03/31/20 04/02/20 04/02/20 05:43 05:32 05:32 WBC MCH RDW Plt Count Lymph % (Auto) [place] % (Auto) Lymph # (Auto) [place] # (Auto) Eos # (Auto) Seg Neutrophils % Seg Neuts % (Manual) Lymphocytes % (Manual) Seg Neutrophils # Seg Neutrophils # Man Lymphocytes # (Manual) Monocytes # (Manual) PT D-Dimer 652.33 H Sodium Potassium Chloride Carbon Dioxide BUN Glucose Ferritin Lactate Dehydrogenase C-Reactive Protein 3.10 H 2.50 H Albumin Total Protein Ur Specific [place] Coronavirus (PCR) SARS-CoV-2 IgG Ab 04/04/20 04/08/20 04/08/20 17:15 04:51 04:51 WBC 12.1 H MCH 27 L RDW 16.5 H Plt Count Lymph % (Auto) 11.4 L [place] % (Auto) Lymph # (Auto) [place] # (Auto) Eos # (Auto) 0.5 H Seg Neutrophils % 77.7 H Seg Neuts % (Manual) Lymphocytes % (Manual) Seg Neutrophils # 9.4 H Seg Neutrophils # Man Lymphocytes # (Manual) Monocytes # (Manual) PT D-Dimer Sodium 130 L 133 L Potassium 3.0 L 3.4 L Chloride 90.6 L 93.4 L Carbon Dioxide 32 H 31 H BUN Glucose 135 H 114 H Ferritin Lactate Dehydrogenase C-Reactive Protein Albumin Total Protein Ur Specific [place] Coronavirus (PCR) SARS-CoV-2 IgG Ab 04/11/20 04/11/20 05:22 05:22 WBC 11.8 H MCH 27 L RDW 17.2 H Plt Count Lymph % (Auto) [place] % (Auto) 8.5 H Lymph # (Auto) [place] # (Auto) 1.0 H Eos # (Auto) 0.5 H Seg Neutrophils % Seg Neuts % (Manual) Lymphocytes % (Manual) Seg Neutrophils # 8.3 H Seg Neutrophils # Man Lymphocytes # (Manual) Monocytes # (Manual) PT D-Dimer Sodium Potassium Chloride Carbon Dioxide BUN Glucose Ferritin Lactate Dehydrogenase C-Reactive Protein Albumin 3.3 L Total Protein 6.1 L Ur Specific [place] Coronavirus (PCR) SARS-CoV-2 IgG Ab
[2020-04-14] MEDS: SODIUM CHLORIDE NASAL SPRAY 44ML NS SCH ×4 (10:03→21:47)
[2020-04-14] MEDS: DULoxetine 30 MG CAP PO SCH (10:03)
[2020-04-14] MEDS: lamoTRIgine 100 MG TAB PO SCH (10:03)
[2020-04-14] MEDS: METOPROLOL TARTRATE 25 MG TAB PO SCH ×2 (10:04→21:42)
[2020-04-14] MEDS: MONTELUKAST 10 MG TAB PO SCH (10:06)
[2020-04-14] MEDS: FAMOTIDINE 20 MG TAB PO SCH ×2 (10:06→21:15)
[2020-04-14] MEDS: ASCORBIC ACID 500 MG TAB PO SCH ×2 (10:06→21:16)
[2020-04-14] MEDS: ZINC SULFATE 220 MG CAP PO SCH ×2 (10:07→21:16)
[2020-04-14] MEDS: NYSTATIN 500,000 UNIT/5 ML ORAL LIQD PO SCH ×2 (14:00→21:15)
[2020-04-14] MEDS: AMITRIPTYLINE 10 MG TAB PO SCH (21:16)
[2020-04-14] MEDS: ENOXAPARIN 40 MG/0.4 ML INJ SUB-Q SCH (21:16)
[2020-04-14] MEDS: guaiFENesin DM 200/20 MG ORAL LIQD 10 ML PO PRN (22:04)
--- NOTE | 2020-04-15 05:57 | Progress Note ---
Assessment and Plan Assessment and Plan - Patient Problems (1) Sepsis Current Visit: Yes Status: Acute Plan to address problem: Continue IV antibiotics (2) Acute hypoxemic respiratory failure Current Visit: Yes Status: Acute Plan to address problem: Supplemental oxygen, nebulizer therapy, pulse oximetry, prone position while in bed, pulmonary toilet. Patient's oxygen is increased to 10 L. Continues to be on 10 L. Unable to w dustin. (3) Pneumonia Current Visit: Yes Status: Acute Qualifiers: Laterality: bilateral Plan to address problem: Pneumonia protocol: Chest x-ray, CBC, CMP, nebulizer therapy, pulse oximetry, IV antibiotic therapy, blood culture, pulmonary toilet. (4) COVID-19 virus infection Current Visit: Yes Status: Acute Plan to address problem: Coronavirus positive Continue dexamethasone 6 mg IV/p.o. daily for 10 days Continue remdesivir total 5 days Continue cefepime every 12 hours Check MRSA PCR pending Monitor liver function test on remdesivir Sinus Covid 2 IgG is positive patient is not a candidate for Covid convalescent plasma Patient is not a candidate for Covid positive convalescent plasma Patient on 10 L nasal cannula oxygen Worsening (5) COPD (chronic obstructive pulmonary disease) Current Visit: Yes Status: Acute Qualifiers: Chronic bronchitis type: unspecified Plan to address problem: IV steroid therapy, supportive care, supplemental oxygen, IV antibiotic therapy. (6) GERD (gastroesophageal reflux disease) Current Visit: Yes Status: Acute Qualifiers: Esophagitis presence: without esophagitis Qualified Code(s): K21.9 - Gastro-esophageal reflux disease without esophagitis Plan to address problem: PPI therapy, supportive care (7) Hypertension Current Visit: Yes Status: Acute Qualifiers: Hypertension type: essential hypertension Qualified Code(s): I10 - Essen tial (primary) hypertension Plan to address problem: Monitor blood pressure every shift, continue medical management. (8) Hyperlipidemia Current Visit: Yes Status: Acute Qualifiers: Hyperlipidemia type: mixed hyperlipidemia Qualified Code(s): E78.2 - Mixed hyperlipidemia Plan to address problem: Lipid panel, statin therapy, balanced diet, low-cholesterol diet. (9) DVT prophylaxis Current Visit: Yes Status: Acute Plan to address problem: SCD to bilateral lower extremities while in bed, prophylactic anticoagulation (10) hypokalemia Supplemented Subjective Date of service: 04/14/20 Principal diagnosis: COVID/COPD Interval history: 64 YO Female with COPD, GERD, HTN, HLD, Anxiety, OA, Asthma Mild Intermittent, presents to ED for evaluation. Patient states that she has "not been feeling well" over the past 5 days with persistently worsening symptoms over the same timeframe. Patient states that she has experienced subjective fever, fatigue, muscle aches, generalized weakness, malaise, dry cough, decreased exercise tolerance, loss of sense of smell, loss of sense of taste, shortness of breath, nausea, multiple loose stools, and diminished oral intake. PT transported to [facility] via private vehicle for further care and evaluation of the aforementioned symptoms. The patient was seen and evaluated in the emergency department. All lab and imaging studies reviewed. The patient was found to be tachypneic with respiratory rate in the 30s as well as tachycardic with a pulse rate of 121, and a temperature of 101.9 F. Patient also found to have a pulse oximetry of 86% with exertion while on room air which is consistent with acute hypoxemic respiratory failure. The patient was also found to have a chest x-ray with bilateral pneumonia as well as as well as sepsis. Patient admitted to medical floor and initiated sepsis protocol. Patient also initiated on coronavirus protocol. Patient denies chills, chest pain, palpitations, productive cough, skin rash, recent ill contacts, or known exposure to COVID-19. Prior admission on 01/07/2020 reviewed. All medication listed at time of admission has been reconciled. Advanced care planning conducted in ED. Interval history: 64 YO Female HD #2 with acute hypoxemic respiratory failure, bilateral pneumonia, sepsis, Covid PCR pending, COPD, GERD, HTN, HLD, Anxiety, OA, Asthma Mild Intermittent. Patient resting comfortably in bed. Patient acknowledges improvement in shortness of breath. Patient denies pain. Day 3 03/15/2020\\ Patient on high flow oxygen Continue IV Decadron and remdesivir Day #4 03/16/2020 Patient on high flow oxygen Continue IV Decadron and IV remdesivir Day#5 03/17/2020 Continue IV Decadron and IV remdesivir Patient on 10 L nasal cannula oxygen Day #6 03/18/2020 Patient on 10 L nasal cannula oxygen 03/19/2020 Day #7 Patient on high flow oxygen Day # 8 03/20/20 Patient on high flow oxygen 03/21/20 On High flow oxygen\\ 03/22/2020 Patient on high flow oxygen from 40 L Patient does not keep her oxygen consistently as the nursing staff and respiratory therapist to decrease oxygen levels 03/23/2020 Patient still on high flow oxygen Alert and oriented and cheerful 03/24/20 Patient on high flow oxygen 04/09/2020 Patient is on 6 L nasal cannula oxygen 04/10/2020 On 6 L nasal cannula oxygen 04/11/2020 On 8 L nasal cannula oxygen Patient is in some distress 04/12/2020 Patient on 10 L nasal cannula oxygen Her oxygen needs are going up She used to be on 6 L 04/13/2020 On 10 L nasal cannula oxygen 04/14/2020 On 10 L nasal cannula oxygen Not improving Objective - Constitutional Vitals: Vital Signs - 12hr 04/14/20 04/14/20 04/14/20 21:42 22:00 22:42 Temperature 98.2 F Pulse Rate 111 H 138 H Respiratory 22 Rate Blood Pressure 135/64 Blood Pressure [Right] O2 Sat by Pulse 92 84 Oximetry 04/15/20 04/15/20 04/15/20 01:15 04:44 04:48 Temperature 98.1 F 98.1 F Pulse Rate 111 H 114 H Respiratory 22 22 Rate Blood Pressure 96/39 Blood Pressure 117/65 [Right] O2 Sat by Pulse 96 94 93 Oximetry General appearance: Present: mild distress, well-nourished - EENT Eyes: PERRL, EOM intact ENT: hearing intact, clear oral mucosa Ears: bilateral: normal - Neck Neck: supple, normal ROM - Respiratory Respiratory effort: normal Respiratory: bilateral: CTA - Breasts Breasts: normal - Cardiovascular Rhythm: regular Heart Sounds: Present: S1 & S2. Absent: gallop, rub Extremities: pulses intact, No edema, normal color, Full ROM - Gastrointestinal General gastrointestinal: Present: soft, non-tender, non-distended, normal bowel sounds - Genitourinary Female genitourinary: normal - Integumentary Integumentary: clear, warm, dry - Musculoskeletal Musculoskeletal: 1, strength equal bilaterally - Neurologic Neurologic: moves all extremities - Psychiatric Psychiatric: memory intact, appropriate mood/affect, intact judgment & insight - Labs CBC & Chem 7: 04/17/20 11:10 04/17/20 11:10 HEART Score - HEART Score Troponin: Troponin T < 0.010 ng/mL (0.00-0.029) 03/13/20 16:24
[2020-04-15] MEDS: NYSTATIN 500,000 UNIT/5 ML ORAL LIQD PO SCH ×3 (08:14→22:21)
[2020-04-15] MEDS: OXYBUTYNIN 5 MG TAB PO SCH ×3 (08:14→22:22)
[2020-04-15] MEDS: GABAPENTIN 300 MG CAP PO SCH ×3 (08:15→22:22)
--- NOTE | 2020-04-15 08:36 | Progress Note ---
Assessment and Plan 64 y/o female with acute on chronic respiratory failure secondary COVID 19 pneumonia. 04/15/20: No good explanation for drop in sats. Given her prior history of COPD, will restart steroids but solumedrol. Will place on 60q6. May need to look at LTACH for placement for manager long term care weaning of oxygen therapy until she reaches a more manageable flow rate. 04/14/20: Will discuss with dayshift RT what happened overnight to increase flow on oxygen therapy. Unfortunately, she cannot be discharged on 15 liters of flow. 04/13/20: If she can remain stable on 3 liters and ambulatory sats are stable with this would have no objection with discharge on 3 liters with 5 liter concentrator at home. 04/12/20: No new recs for today. Please see note from 04/11. CM can reach out to [employer] company about larger concentrator if available. 04/11/20: Would not discharge on 5 liters at rest unless the company can provide a large concentrator (7-10) liters. Patient would need a small buffer incase she got into trouble with desats and being on the max for the concentrator is not appropriate. Continue to wean as tolerated. Suggest a short trial of diuresis if I/O are accurate. 1. steroids are now off. Continue to wean FiO2 for sats >88% 2. Ordered nasal saline to help with moisture and nose bleeds secondary to prolonged high flow. 3. Prone as tolerated during the day and sleep prone at night. Patient has been noncompliant with this. Did not prone again last night. 4. Guarded prognosis given prolonged high levels of flow and oxygen requirements. However patient has improved significantly. 5. Now that stable on 2-3 liters, suggest walk test to determine oxygen needs with ambulation and if she can maintain adequate sats on 2-3 liters would have no objection with discharge. Subjective Date of service: 04/15/20 Principal diagnosis: COVID/COPD Interval history: Patient back up to 15 liters and holding. Not able to wean any further. Has finished steroids. Objective Vital Signs - 12hr 04/14/20 04/14/20 04/14/20 21:42 22:00 22:42 Temperature 98.2 F Pulse Rate 111 H 138 H Respiratory 22 Rate Blood Pressure 135/64 Blood Pressure [Right] O2 Sat by Pulse 92 84 Oximetry 04/15/20 04/15/20 04/15/20 01:15 04:44 04:48 Temperature 98.1 F 98.1 F Pulse Rate 111 H 114 H Respiratory 22 22 Rate Blood Pressure 96/39 Blood Pressure 117/65 [Right] O2 Sat by Pulse 96 94 93 Oximetry Constitutional: alert, other (critically ill on HFNC) Eyes: non-icteric Neck: supple Effort: mildly labored Ascultation: Bilateral: clear, diminished breath sounds, wheezes Cardiovascular: other (tachy, RR; no mrg) Gastrointestinal: normoactive bowel sounds, soft, non-tender Integumentary: normal Extremities: no cyanosis, no edema, pink and warm Neurologic: normal mental status, non-focal exam, CN II-XII normal Psychiatric: mood appropriate, other (very fidgety) CBC and BMP: 04/11/20 05:22 04/08/20 04:51 ABG, PT/INR, D-dimer: PT/INR, D-dimer PT 11.8 Sec. (12.2-14.9) L 03/13/20 16:24 INR 0.89 (0.87-1.13) 03/13/20 16:24 D-Dimer 652.33 ng/mlDDU (0-234) H 04/02/20 05:32 Abnormal lab findings: Abnormal Labs 03/13/20 03/13/20 03/13/20 16:24 16:24 16:24 WBC MCH RDW 16.8 H Plt Count Lymph % (Auto) 8.5 L [place] % (Auto) Lymph # (Auto) 0.6 L [place] # (Auto) Eos # (Auto) Seg Neutrophils % 84.9 H Seg Neuts % (Manual) Lymphocytes % (Manual) Seg Neutrophils # Seg Neutrophils # Man Lymphocytes # (Manual) Monocytes # (Manual) PT 11.8 L D-Dimer 234.66 H Sodium 135 L Potassium 3.1 L Chlor[place] Carbon Dioxide BUN Glucose 174 H Ferritin Lactate Dehydrogenase 277 H C-Reactive Protein 8.00 H Albumin 3.7 L Total Protein Ur Specific Lane Coronavirus (PCR) SARS-CoV-2 IgG Ab 03/13/20 03/14/20 03/14/20 16:24 08:02 08:02 WBC 3.9 L MCH RDW 16.3 H Plt Count Lymph % (Auto) [place] % (Auto) 9.5 H Lymph # (Auto) 0.7 L [place] # (Auto) Eos # (Auto) Seg Neutrophils % 72.9 H Seg Neuts % (Manual) Lymphocytes % (Manual) Seg Neutrophils # Seg Neutrophils # Man Lymphocytes # (Manual) Monocytes # (Manual) PT D-Dimer Sodium Potassium Chloride 107.4 H Carbon Dioxide BUN Glucose 174 H 142 H Ferritin Lactate Dehydrogenase 267 H C-Reactive Protein 8.10 H Albumin Total Protein Ur Specific Lane Coronavirus (PCR) SARS-CoV-2 IgG Ab 03/14/20 03/14/20 03/14/20 16:58 16:58 Unknown WBC MCH RDW Plt Count Lymph % (Auto) [place] % (Auto) Lymph # (Auto) [place] # (Auto) Eos # (Auto) Seg Neutrophils % Seg Neuts % (Manual) Lymphocytes % (Manual) Seg Neutrophils # Seg Neutrophils # Man Lymphocytes # (Manual) Monocytes # (Manual) PT D-Dimer Sodium Potassium Chloride Carbon Dioxide BUN Glucose Ferritin Lactate Dehydrogenase 277 H C-Reactive Protein 2.60 H Albumin Total Protein Ur Specific Lane Coronavirus (PCR) Positive A SARS-CoV-2 IgG Ab Reactive A 03/16/20 03/16/20 03/16/20 05:18 05:18 10:34 WBC MCH RDW 16.4 H Plt Count Lymph % (Auto) [place] % (Auto) 10.0 H Lymph # (Auto) [place] # (Auto) Eos # (Auto) Seg Neutrophils % Seg Neuts % (Manual) Lymphocytes % (Manual) Seg Neutrophils # Seg Neutrophils # Man Lymphocytes # (Manual) Monocytes # (Manual) PT D-Dimer 278.32 H Sodium Potassium 3.1 L Chloride Carbon Dioxide BUN Glucose Ferritin Lactate Dehydrogenase C-Reactive Protein Albumin 3.4 L Total Protein Ur Specific Lane Coronavirus (PCR) SARS-CoV-2 IgG Ab 03/16/20 03/17/20 03/18/20 10:34 21:24 05:58 WBC 14.8 H MCH RDW 15.8 H Plt Count Lymph % (Auto) 11.5 L [place] % (Auto) Lymph # (Auto) [place] # (Auto) 1.0 H Eos # (Auto) Seg Neutrophils % 81.3 H Seg Neuts % (Manual) Lymphocytes % (Manual) Seg Neutrophils # 12.0 H Seg Neutrophils # Man Lymphocytes # (Manual) Monocytes # (Manual) PT D-Dimer Sodium Potassium Chloride Carbon Dioxide BUN Glucose 182 H Ferritin Lactate Dehydrogenase 268 H 268 H C-Reactive Protein 2.10 H 4.90 H Albumin Total Protein Ur Specific Lane Coronavirus (PCR) SARS-CoV-2 IgG Ab 03/18/20 03/21/20 03/21/20 05:58 05:27 05:27 WBC 14.1 H MCH 27 L RDW 16.1 H Plt Count 513 H Lymph % (Auto) 11.5 L [place] % (Auto) 7.9 H Lymph # (Auto) [place] # (Auto) 1.1 H Eos # (Auto) Seg Neutrophils % 78.4 H Seg Neuts % (Manual) Lymphocytes % (Manual) Seg Neutrophils # 11.1 H Seg Neutrophils # Man Lymphocytes # (Manual) Monocytes # (Manual) PT D-Dimer Sodium Potassium 2.9 L* Chloride Carbon Dioxide 18 L BUN Glucose Ferritin Lactate Dehydrogenase C-Reactive Protein Albumin 3.6 L 3.6 L Total Protein Ur Specific Lane Coronavirus (PCR) SARS-CoV-2 IgG Ab 03/22/20 03/22/20 03/22/20 15:45 15:45 15:45 WBC MCH RDW Plt Count Lymph % (Auto) [place] % (Auto) Lymph # (Auto) [place] # (Auto) Eos # (Auto) Seg Neutrophils % Seg Neuts % (Manual) Lymphocytes % (Manual) Seg Neutrophils # Seg Neutrophils # Man Lymphocytes # (Manual) Monocytes # (Manual) PT D-Dimer 274.02 H Sodium Potassium Chloride Carbon Dioxide BUN Glucose Ferritin Lactate Dehydrogenase 259 H C-Reactive Protein 7.60 H Albumin Total Protein Ur Specific Lane Coronavirus (PCR) SARS-CoV-2 IgG Ab 03/26/20 03/26/20 03/27/20 05:45 05:45 08:21 WBC 34.9 H MCH RDW 15.9 H Plt Count 579 H Lymph % (Auto) [place] % (Auto) Lymph # (Auto) [place] # (Auto) Eos # (Auto) Seg Neutrophils % Seg Neuts % (Manual) Lymphocytes % (Manual) Seg Neutrophils # Seg Neutrophils # Man Lymphocytes # (Manual) Monocytes # (Manual) PT D-Dimer Sodium 130 L 130 L Potassium Chloride 86.0 L 88.5 L Carbon Dioxide 35 H BUN 22 H Glucose 227 H 326 H Ferritin Lactate Dehydrogenase 213 H C-Reactive Protein 34.50 H Albumin Total Protein Ur Specific Lane Coronavirus (PCR) SARS-CoV-2 IgG Ab 03/27/20 03/27/20 03/27/20 08:21 18:45 18:45 WBC 42.1 H* MCH RDW 16.3 H Plt Count Lymph % (Auto) [place] % (Auto) Lymph # (Auto) [place] # (Auto) Eos # (Auto) Seg Neutrophils % Seg Neuts % (Manual) 91.0 H Lymphocytes % (Manual) 2.0 L Seg Neutrophils # Seg Neutrophils # Man 38.3 H Lymphocytes # (Manual) 0.8 L Monocytes # (Manual) 1.7 H PT D-Dimer Sodium Potassium Chloride Carbon Dioxide BUN Glucose Ferritin 400.5 H Lactate Dehydrogenase C-Reactive Protein 49.70 H Albumin Total Protein Ur Specific Lane Coronavirus (PCR) SARS-CoV-2 IgG Ab 03/28/20 03/28/20 03/28/20 07:51 07:51 07:51 WBC 32.2 H MCH 27 L RDW 16.3 H Plt Count Lymph % (Auto) [place] % (Auto) Lymph # (Auto) [place] # (Auto) Eos # (Auto) Seg Neutrophils % Seg Neuts % (Manual) 86.0 H Lymphocytes % (Manual) 10.0 L Seg Neutrophils # Seg Neutrophils # Man 27.7 H Lymphocytes # (Manual) Monocytes # (Manual) 1.3 H PT D-Dimer 1182.25 H Sodium Potassium Chloride Carbon Dioxide BUN Glucose Ferritin 514.4 H Lactate Dehydrogenase C-Reactive Protein Albumin Total Protein Ur Specific Lane Coronavirus (PCR) SARS-CoV-2 IgG Ab 03/28/20 03/28/20 03/29/20 07:51 17:48 05:07 WBC MCH RDW Plt Count Lymph % (Auto) [place] % (Auto) Lymph # (Auto) [place] # (Auto) Eos # (Auto) Seg Neutrophils % Seg Neuts % (Manual) Lymphocytes % (Manual) Seg Neutrophils # Seg Neutrophils # Man Lymphocytes # (Manual) Monocytes # (Manual) PT D-Dimer Sodium 136 L Potassium Chloride 93.0 L Carbon Dioxide 35 H BUN Glucose 243 H Ferritin Lactate Dehydrogenase 218 H C-Reactive Protein 18.00 H Albumin Total Protein Ur Specific Lane 1.036 H Coronavirus (PCR) SARS-CoV-2 IgG Ab 03/29/20 03/29/20 03/30/20 05:07 14:39 05:09 WBC 22.0 H 11.4 H MCH 27 L 27 L RDW 16.0 H 16.1 H Plt Count Lymph % (Auto) [place] % (Auto) Lymph # (Auto) [place] # (Auto) Eos # (Auto) Seg Neutrophils % Seg Neuts % (Manual) Lymphocytes % (Manual) Seg Neutrophils # Seg Neutrophils # Man Lymphocytes # (Manual) Monocytes # (Manual) PT D-Dimer Sodium 131 L Potassium Chloride 91.7 L Carbon Dioxide 31 H BUN Glucose 328 H Ferritin Lactate Dehydrogenase C-Reactive Protein Albumin Total Protein Ur Specific Lane Coronavirus (PCR) SARS-CoV-2 IgG Ab 03/30/20 03/31/20 03/31/20 05:09 05:43 05:43 WBC MCH RDW Plt Count Lymph % (Auto) [place] % (Auto) Lymph # (Auto) [place] # (Auto) Eos # (Auto) Seg Neutrophils % Seg Neuts % (Manual) Lymphocytes % (Manual) Seg Neutrophils # Seg Neutrophils # Man Lymphocytes # (Manual) Monocytes # (Manual) PT D-Dimer 734.03 H Sodium 136 L Potassium Chloride 96.2 L Carbon Dioxide BUN Glucose 297 H Ferritin 404.1 H Lactate Dehydrogenase C-Reactive Protein Albumin Total Protein Ur Specific Lane Coronavirus (PCR) SARS-CoV-2 IgG Ab 03/31/20 04/02/20 04/02/20 05:43 05:32 05:32 WBC MCH RDW Plt Count Lymph % (Auto) [place] % (Auto) Lymph # (Auto) [place] # (Auto) Eos # (Auto) Seg Neutrophils % Seg Neuts % (Manual) Lymphocytes % (Manual) Seg Neutrophils # Seg Neutrophils # Man Lymphocytes # (Manual) Monocytes # (Manual) PT D-Dimer 652.33 H Sodium Potassium Chloride Carbon Dioxide BUN Glucose Ferritin Lactate Dehydrogenase C-Reactive Protein 3.10 H 2.50 H Albumin Total Protein Ur Specific Lane Coronavirus (PCR) SARS-CoV-2 IgG Ab 04/04/20 04/08/20 04/08/20 17:15 04:51 04:51 WBC 12.1 H MCH 27 L RDW 16.5 H Plt Count Lymph % (Auto) 11.4 L [place] % (Auto) Lymph # (Auto) [place] # (Auto) Eos # (Auto) 0.5 H Seg Neutrophils % 77.7 H Seg Neuts % (Manual) Lymphocytes % (Manual) Seg Neutrophils # 9.4 H Seg Neutrophils # Man Lymphocytes # (Manual) Monocytes # (Manual) PT D-Dimer Sodium 130 L 133 L Potassium 3.0 L 3.4 L Chloride 90.6 L 93.4 L Carbon Dioxide 32 H 31 H BUN Glucose 135 H 114 H Ferritin Lactate Dehydrogenase C-Reactive Protein Albumin Total Protein Ur Specific Lane Coronavirus (PCR) SARS-CoV-2 IgG Ab 04/11/20 04/11/20 05:22 05:22 WBC 11.8 H MCH 27 L RDW 17.2 H Plt Count Lymph % (Auto) [place] % (Auto) 8.5 H Lymph # (Auto) [place] # (Auto) 1.0 H Eos # (Auto) 0.5 H Seg Neutrophils % Seg Neuts % (Manual) Lymphocytes % (Manual) Seg Neutrophils # 8.3 H Seg Neutrophils # Man Lymphocytes # (Manual) Monocytes # (Manual) PT D-Dimer Sodium Potassium Chloride Carbon Dioxide BUN Glucose Ferritin Lactate Dehydrogenase C-Reactive Protein Albumin 3.3 L Total Protein 6.[address] Coronavirus (PCR) SARS-CoV-2 IgG Ab
[2020-04-15] MEDS: lamoTRIgine 100 MG TAB PO SCH (09:16)
[2020-04-15] MEDS: methylPREDNISolone Sod Succinate 125 MG/2 ML INJ IV SCH ×3 (09:16→22:28)
[2020-04-15] MEDS: DULoxetine 30 MG CAP PO SCH (09:16)
[2020-04-15] MEDS: ASCORBIC ACID 500 MG TAB PO SCH ×2 (09:16→22:21)
[2020-04-15] MEDS: FAMOTIDINE 20 MG TAB PO SCH ×2 (09:17→22:21)
[2020-04-15] MEDS: METOPROLOL TARTRATE 25 MG TAB PO SCH ×2 (09:17→22:22)
[2020-04-15] MEDS: ZINC SULFATE 220 MG CAP PO SCH ×2 (09:18→22:22)
[2020-04-15] MEDS: MONTELUKAST 10 MG TAB PO SCH (09:18)
[2020-04-15] MEDS: SODIUM CHLORIDE NASAL SPRAY 44ML NS SCH ×4 (09:19→22:35)
[2020-04-15] MEDS: ALPRAZolam 0.5 MG TAB PO PRN (22:23)
[2020-04-15] MEDS: ENOXAPARIN 40 MG/0.4 ML INJ SUB-Q SCH (22:23)
[2020-04-15] MEDS: AMITRIPTYLINE 10 MG TAB PO SCH (22:24)
[2020-04-16] MEDS: methylPREDNISolone Sod Succinate 125 MG/2 ML INJ IV SCH ×4 (03:16→21:46)
--- NOTE | 2020-04-16 03:22 | Progress Note ---
Assessment and Plan Assessment and Plan - Patient Problems (1) Sepsis Current Visit: Yes Status: Acute Plan to address problem: Continue IV antibiotics (2) Acute hypoxemic respiratory failure Current Visit: Yes Status: Acute Plan to address problem: Supplemental oxygen, nebulizer therapy, pulse oximetry, prone position while in bed, pulmonary toilet. Patient's oxygen is increased to 10 L (3) Pneumonia Current Visit: Yes Status: Acute Qualifiers: Laterality: bilateral Plan to address problem: Pneumonia protocol: Chest x-ray, CBC, CMP, nebulizer therapy, pulse oximetry, IV antibiotic therapy, blood culture, pulmonary toilet. (4) COVID-19 virus infection Current Visit: Yes Status: Acute Plan to address problem: Coronavirus positive Continue dexamethasone 6 mg IV/p.o. daily for 10 days Continue remdesivir total 5 days Continue cefepime every 12 hours Check MRSA PCR pending Monitor liver function test on remdesivir Sinus Covid 2 IgG is positive patient is not a candidate for Covid convalescent plasma Patient is not a candidate for Covid positive convalescent plasma Patient on 6 L nasal cannula oxygen Worsening (5) COPD (chronic obstructive pulmonary disease) Current Visit: Yes Status: Acute Qualifiers: Chronic bronchitis type: unspecified Plan to address problem: IV steroid therapy, supportive care, supplemental oxygen, IV antibiotic therapy. (6) GERD (gastroesophageal reflux disease) Current Visit: Yes Status: Acute Qualifiers: Esophagitis presence: without esophagitis Qualified Code(s): K21.9 - Gastro-esophageal reflux disease without esophagitis Plan to address problem: PPI therapy, supportive care (7) Hypertension Current Visit: Yes Status: Acute Qualifiers: Hypertension type: essential hypertension Qualified Code(s): I10 - Essential (primary) hypertension Plan to address problem: Blood pressure under control (8) Hyperlipidemia Current Visit: Yes Status: Acute Qualifiers: Hyperlipidemia type: mixed hyperlipidemia Qualified Code(s): E78.2 - Mixed hyperlipidemia Plan to address problem: Lipid panel, statin therapy, balanced diet, low-cholesterol diet. (9) DVT prophylaxis Current Visit: Yes Status: Acute Plan to address problem: SCD to bilateral lower extremities while in bed, prophylactic anticoagulation (10) hypokalemia Supplemented Subjective Date of service: 04/15/20 Principal diagnosis: COVID/COPD Interval history: 64 YO Female with COPD, GERD, HTN, HLD, Anxiety, OA, Asthma Mild Intermittent, presents to ED for evaluation. Patient states that she has "not been feeling well" over the past 5 days with persistently worsening symptoms over the same timeframe. Patient states that she has experienced subjective fever, fatigue, muscle aches, generalized weakness, malaise, dry cough, decreased exercise tolerance, loss of sense of smell, loss of sense of taste, shortness of breath, nausea, multiple loose stools, and diminished oral intake. PT transported to [facility] via private vehicle for further care and evaluation of the aforementioned symptoms. The patient was seen and evaluated in the emergency department. All lab and imaging studies reviewed. The patient was found to be tachypneic with respiratory rate in the 30s as well as tachycardic with a pulse rate of 121, and a temperature of 101.9 F. Patient also found to have a pulse oximetry of 86% with exertion while on room air which is consistent with acute hypoxemic respiratory failure. The patient was also found to have a chest x-ray with bilateral pneumonia as well as as well as sepsis. Patient admitted to medical floor and initiated sepsis protocol. Patient also initiated on coronavirus protocol. Patient denies chills, chest pain, palpitations, productive cough, skin rash, recent ill contacts, or known exposure to COVID-19. Prior admission on 01/07/2020 reviewed. All medication listed at time of admission has been reconciled. Advanced care planning conducted in ED. Interval history: 64 YO Female HD #2 with acute hypoxemic respiratory failure, bilateral pneumonia, sepsis, Covid PCR pending, COPD, GERD, HTN, HLD, Anxiety, OA, Asthma Mild Intermittent. Patient resting comfortably in bed. Patient acknowledges improvement in shortness of breath. Patient denies pain. Day 3 03/15/2020\\ Patient on high flow oxygen Continue IV Decadron and remdesivir Day #4 03/16/2020 Patient on high flow oxygen Continue IV Decadron and IV remdesivir Day#5 03/17/2020 Continue IV Decadron and IV remdesivir Patient on 10 L nasal cannula oxygen Day #6 03/18/2020 Patient on 10 L nasal cannula oxygen 03/19/2020 Day #7 Patient on high flow oxygen Day # 8 03/20/20 Patient on high flow oxygen 03/21/20 On High flow oxygen\\ 03/22/2020 Patient on high flow oxygen from 40 L Patient does not keep her oxygen consistently as the nursing staff and respiratory therapist to decrease oxygen levels 03/23/2020 Patient still on high flow oxygen Alert and oriented and cheerful 03/24/20 Patient on high flow oxygen 04/09/2020 Patient is on 6 L nasal cannula oxygen 04/10/2020 On 6 L nasal cannula oxygen 04/11/2020 On 8 L nasal cannula oxygen Patient is in some distress 04/12/2020 Patient on 10 L nasal cannula oxygen Her oxygen needs are going up She used to be on 6 L 04/13/2020 On 10 L nasal cannula oxygen 04/14/2020 On 10 L nasal cannula oxygen 04/15/2020 On 10 L nasal cannula oxygen Objective - Constitutional Vitals: Vital Signs - 12hr 04/15/20 04/15/20 04/15/20 16:25 17:27 22:33 Temperature 98.2 F Pulse Rate 106 H 127 H Respiratory 18 22 Rate Blood Pressure 126/65 134/64 O2 Sat by Pulse 94 98 91 Oximetry 04/15/20 22:50 Temperature Pulse Rate Respiratory Rate Blood Pressure O2 Sat by Pulse 96 Oximetry General appearance: Present: mild distress, well-nourished - EENT Eyes: PERRL, EOM intact ENT: hearing intact, clear oral mucosa Ears: bilateral: normal - Neck Neck: supple, normal ROM - Respiratory Respiratory effort: normal Respiratory: bilateral: CTA - Breasts Breasts: normal - Cardiovascular Heart rate: 78 Rhythm: regular Heart Sounds: Present: S1 & S2. Absent: gallop, rub Extremities: pulses intact, No edema, normal color, Full ROM - Gastrointestinal General gastrointestinal: Present: soft, non-tender, non-distended, normal bowel sounds - Genitourinary Female genitourinary: normal - Integumentary Integumentary: clear, warm, dry - Musculoskeletal Musculoskeletal: 1, strength equal bilaterally - Neurologic Neurologic: moves all extremities - Psychiatric Psychiatric: memory intact, appropriate mood/affect, intact judgment & insight - Labs CBC & Chem 7: 04/17/20 11:10 04/17/20 11:10 HEART Score - HEART Score Troponin: Troponin T < 0.010 ng/mL (0.00-0.029) 03/13/20 16:24
[2020-04-16] MEDS: GABAPENTIN 300 MG CAP PO SCH ×3 (09:50→20:41)
[2020-04-16] MEDS: OXYBUTYNIN 5 MG TAB PO SCH ×3 (09:50→20:51)
[2020-04-16] MEDS: NYSTATIN 500,000 UNIT/5 ML ORAL LIQD PO SCH ×3 (09:51→21:40)
[2020-04-16] MEDS: METOPROLOL TARTRATE 25 MG TAB PO SCH ×2 (10:32→22:40)
[2020-04-16] MEDS: ZINC SULFATE 220 MG CAP PO SCH ×2 (10:32→22:41)
[2020-04-16] MEDS: FAMOTIDINE 20 MG TAB PO SCH ×2 (10:34→22:39)
[2020-04-16] MEDS: DULoxetine 30 MG CAP PO SCH (10:34)
[2020-04-16] MEDS: lamoTRIgine 100 MG TAB PO SCH (10:36)
[2020-04-16] MEDS: ASCORBIC ACID 500 MG TAB PO SCH ×2 (10:36→22:39)
[2020-04-16] MEDS: MONTELUKAST 10 MG TAB PO SCH (10:36)
[2020-04-16] MEDS: ALPRAZolam 0.5 MG TAB PO PRN ×2 (10:46→22:39)
[2020-04-16] MEDS: SODIUM CHLORIDE NASAL SPRAY 44ML NS SCH ×4 (11:03→22:43)
--- NOTE | 2020-04-16 12:51 | Progress Note ---
Assessment and Plan 64 y/o female with acute on chronic respiratory failure secondary COVID 19 pneumonia. 04/16/20: I added BID seroquel therapy today. If this does not help, could try longer acting benzo like klonopin bid but would not do both. Please continue steroids at current dosing at least another 48 hours to see if this helps with oxygenation given her history of COPD. Will also give a small dose of IV lasix. 04/15/20: No good explanation for drop in sats. Given her prior history of COPD, will restart steroids but solumedrol. Will place on 60q6. May need to look at LTACH for placement for half-way weaning of oxygen therapy until she reaches a more manageable flow rate. 04/14/20: Will discuss with dayshift RT what happened overnight to increase flow on oxygen therapy. Unfortunately, she cannot be discharged on 15 liters of flow. 04/13/20: If she can remain stable on 3 liters and ambulatory sats are stable with this would have no objection with discharge on 3 liters with 5 liter concentrator at home. 04/12/20: No new recs for today. Please see note from 04/11. CM can reach out to [employer] about larger concentrator if available. 04/11/20: Would not discharge on 5 liters at rest unless the company can provide a large concentrator (7-10) liters. Patient would need a small buffer incase she got into trouble with desats and being on the max for the concentrator is not appropriate. Continue to wean as tolerated. Suggest a short trial of diuresis if I/O are accurate. 1. steroids are now off. Continue to wean FiO2 for sats >88% 2. Ordered nasal saline to help with moisture and nose bleeds secondary to prolonged high flow. 3. Prone as tolerated during the day and sleep prone at night. Patient has been noncompliant with this. Did not prone again last night. 4. Guarded prognosis given prolonged high levels of flow and oxygen requirements. However patient has improved significantly. 5. Now that stable on 2-3 liters, suggest walk test to determine oxygen needs with ambulation and if she can maintain adequate sats on 2-3 liters would have no objection with discharge. Subjective Date of service: 04/16/20 Principal diagnosis: COVID/COPD Interval history: Had to increase steroids on yesterday and now anxiety is back elevated. Given xanax. Objective Vital Signs - 12hr 04/16/20 04/16/20 04/16/20 04:23 04:53 10:32 Temperature 97.7 F Pulse Rate 110 H 141 H Respiratory 20 Rate Blood Pressure 129/71 O2 Sat by Pulse 89 93 Oximetry 04/16/20 12:21 Temperature Pulse Rate Respiratory Rate Blood Pressure O2 Sat by Pulse 91 Oximetry Constitutional: alert, other (critically ill on HFNC) Eyes: non-icteric Neck: supple Effort: mildly labored Ascultation: Bilateral: clear, diminished breath sounds, wheezes Cardiovascular: other (tachy, RR; no mrg) Gastrointestinal: normoactive bowel sounds, soft, non-tender Integumentary: normal Extremities: no cyanosis, no edema, pink and warm Neurologic: normal mental status, non-focal exam, CN II-XII normal Psychiatric: mood appropriate, other (very fidgety) CBC and BMP: 04/11/20 05:22 04/08/20 04:51 ABG, PT/INR, D-dimer: PT/INR, D-dimer PT 11.8 Sec. (12.2-14.9) L 03/13/20 16:24 INR 0.89 (0.87-1.13) 03/13/20 16:24 D-Dimer 652.33 ng/mlDDU (0-234) H 04/02/20 05:32 Abnormal lab findings: Abnormal Labs 03/13/20 03/13/20 03/13/20 16:24 16:24 16:24 WBC MCH RDW 16.8 H Plt Count Lymph % (Auto) 8.5 L [place] % (Auto) Lymph # (Auto) 0.6 L [place] # (Auto) Eos # (Auto) Seg Neutrophils % 84.9 H Seg Neuts % (Manual) Lymphocytes % (Manual) Seg Neutrophils # Seg Neutrophils # Man Lymphocytes # (Manual) Monocytes # (Manual) PT 11.8 L D-Dimer 234.66 H Sodium 135 L Potassium 3.1 L Chloride Carbon Dioxide BUN Glucose 174 H Ferritin Lactate Dehydrogenase 277 H C-Reactive Protein 8.00 H Albumin 3.7 L Total Protein Ur Specific [place] Coronavirus (PCR) SARS-CoV-2 IgG Ab 03/13/20 03/14/2020 16:24 08:02 08:02 WBC 3.9 L MCH RDW 16.3 H Plt Count Lymph % (Auto) [place] % (Auto) 9.5 H Lymph # (Auto) 0.7 L [place] # (Auto) Eos # (Auto) Seg Neutrophils % 72.9 H Seg Neuts % (Manual) Lymphocytes % (Manual) Seg Neutrophils # Seg Neutrophils # Man Lymphocytes # (Manual) Monocytes # (Manual) PT D-Dimer Sodium Potassium Chloride 107.4 H Carbon Dioxide BUN Glucose 174 H 142 H Ferritin Lactate Dehydrogenase 267 H C-Reactive Protein 8.10 H Albumin Total Protein Ur Specific [place] Coronavirus (PCR) SARS-CoV-2 IgG Ab 03/14/20 03/14/20 03/14/20 16:58 16:58 Unknown WBC MCH RDW Plt Count Lymph % (Auto) [place] % (Auto) Lymph # (Auto) [place] # (Auto) Eos # (Auto) Seg Neutrophils % Seg Neuts % (Manual) Lymphocytes % (Manual) Seg Neutrophils # Seg Neutrophils # Man Lymphocytes # (Manual) Monocytes # (Manual) PT D-Dimer Sodium Potassium Chloride Carbon Dioxide BUN Glucose Ferritin Lactate Dehydrogenase 277 H C-Reactive Protein 2.60 H Albumin Total Protein Ur Specific [place] Coronavirus (PCR) Positive A SARS-CoV-2 IgG Ab Reactive A 03/16/20 03/16/20 03/16/20 05:18 05:18 10:34 WBC MCH RDW 16.4 H Plt Count Lymph % (Auto) [place] % (Auto) 10.0 H Lymph # (Auto) [place] # (Auto) Eos # (Auto) Seg Neutrophils % Seg Neuts % (Manual) Lymphocytes % (Manual) Seg Neutrophils # Seg Neutrophils # Man Lymphocytes # (Manual) Monocytes # (Manual) PT D-Dimer 278.32 H Sodium Potassium 3.1 L Chloride Carbon Dioxide BUN Glucose Ferritin Lactate Dehydrogenase C-Reactive Protein Albumin 3.4 L Total Protein Ur Specific [place] Coronavirus (PCR) SARS-CoV-2 IgG Ab 03/16/20 03/17/20 03/18/20 10:34 21:24 05:58 WBC 14.8 H MCH RDW 15.8 H Plt Count Lymph % (Auto) 11.5 L [place] % (Auto) Lymph # (Auto) [place] # (Auto) 1.0 H Eos # (Auto) Seg Neutrophils % 81.3 H Seg Neuts % (Manual) Lymphocytes % (Manual) Seg Neutrophils # 12.0 H Seg Neutrophils # Man Lymphocytes # (Manual) Monocytes # (Manual) PT D-Dimer Sodium Potassium Chloride Carbon Dioxide BUN Glucose 182 H Ferritin Lactate Dehydrogenase 268 H 268 H C-Reactive Protein 2.10 H 4.90 H Albumin Total Protein Ur Specific [place] Coronavirus (PCR) SARS-CoV-2 IgG Ab 03/18/20 03/21/20 03/21/20 05:58 05:27 05:27 WBC 14.1 H MCH 27 L RDW 16.1 H Plt Count 513 H Lymph % (Auto) 11.5 L [place] % (Auto) 7.9 H Lymph # (Auto) [place] # (Auto) 1.1 H Eos # (Auto) Seg Neutrophils % 78.4 H Seg Neuts % (Manual) Lymphocytes % (Manual) Seg Neutrophils # 11.1 H Seg Neutrophils # Man Lymphocytes # (Manual) Monocytes # (Manual) PT D-Dimer Sodium Potassium 2.9 L* Chloride Carbon Dioxide 18 L BUN Glucose Ferritin Lactate Dehydrogenase C-Reactive Protein Albumin 3.6 L 3.6 L Total Protein Ur Specific [place] Coronavirus (PCR) SARS-CoV-2 IgG Ab 03/22/20 03/22/20 03/22/20 15:45 15:45 15:45 WBC MCH RDW Plt Count Lymph % (Auto) [place] % (Auto) Lymph # (Auto) [place] # (Auto) Eos # (Auto) Seg Neutrophils % Seg Neuts % (Manual) Lymphocytes % (Manual) Seg Neutrophils # Seg Neutrophils # Man Lymphocytes # (Manual) Monocytes # (Manual) PT D-Dimer 274.02 H Sodium Potassium Chloride Carbon Dioxide BUN Glucose Ferritin Lactate Dehydrogenase 259 H C-Reactive Protein 7.60 H Albumin Total Protein Ur Specific [place] Coronavirus (PCR) SARS-CoV-2 IgG Ab 03/26/20 03/26/20 03/27/20 05:45 05:45 08:21 WBC 34.9 H MCH RDW 15.9 H Plt Count 579 H Lymph % (Auto) [place] % (Auto) Lymph # (Auto) [place] # (Auto) Eos # (Auto) Seg Neutrophils % Seg Neuts % (Manual) Lymphocytes % (Manual) Seg Neutrophils # Seg Neutrophils # Man Lymphocytes # (Manual) Monocytes # (Manual) PT D-Dimer Sodium 130 L 130 L Potassium Chloride 86.0 L 88.5 L Carbon Dioxide 35 H BUN 22 H Glucose 227 H 326 H Ferritin Lactate Dehydrogenase 213 H C-Reactive Protein 34.50 H Albumin Total Protein Ur Specific [place] Coronavirus (PCR) SARS-CoV-2 IgG Ab 03/27/20 03/27/20 03/27/20 08:21 18:45 18:45 WBC 42.1 H* MCH RDW 16.3 H Plt Count Lymph % (Auto) [place] % (Auto) Lymph # (Auto) [place] # (Auto) Eos # (Auto) Seg Neutrophils % Seg Neuts % (Manual) 91.0 H Lymphocytes % (Manual) 2.0 L Seg Neutrophils # Seg Neutrophils # Man 38.3 H Lymphocytes # (Manual) 0.8 L Monocytes # (Manual) 1.7 H PT D-Dimer Sodium Potassium Chloride Carbon Dioxide BUN Glucose Ferritin 400.5 H Lactate Dehydrogenase C-Reactive Protein 49.70 H Albumin Total Protein Ur Specific [place] Coronavirus (PCR) SARS-CoV-2 IgG Ab 03/28/20 03/28/20 03/28/20 07:51 07:51 07:51 WBC 32.2 H MCH 27 L RDW 16.3 H Plt Count Lymph % (Auto) [place] % (Auto) Lymph # (Auto) [place] # (Auto) Eos # (Auto) Seg Neutrophils % Seg Neuts % (Manual) 86.0 H Lymphocytes % (Manual) 10.0 L Seg Neutrophils # Seg Neutrophils # Man 27.7 H Lymphocytes # (Manual) Monocytes # (Manual) 1.3 H PT D-Dimer 1182.25 H Sodium Potassium Chloride Carbon Dioxide BUN Glucose Ferritin 514.4 H Lactate Dehydrogenase C-Reactive Protein Albumin Total Protein Ur Specific [place] Coronavirus (PCR) SARS-CoV-2 IgG Ab 03/28/20 03/28/20 03/29/20 07:51 17:48 05:07 WBC MCH RDW Plt Count Lymph % (Auto) [place] % (Auto) Lymph # (Auto) [place] # (Auto) Eos # (Auto) Seg Neutrophils % Seg Neuts % (Manual) Lymphocytes % (Manual) Seg Neutrophils # Seg Neutrophils # Man Lymphocytes # (Manual) Monocytes # (Manual) PT D-Dimer Sodium 136 L Potassium Chloride 93.0 L Carbon Dioxide 35 H BUN Glucose 243 H Ferritin Lactate Dehydrogenase 218 H C-Reactive Protein 18.00 H Albumin Total Protein Ur Specific [place] 1.036 H Coronavirus (PCR) SARS-CoV-2 IgG Ab 03/29/20 03/29/20 03/30/20 05:07 14:39 05:09 WBC 22.0 H 11.4 H MCH 27 L 27 L RDW 16.0 H 16.1 H Plt Count Lymph % (Auto) [place] % (Auto) Lymph # (Auto) [place] # (Auto) Eos # (Auto) Seg Neutrophils % Seg Neuts % (Manual) Lymphocytes % (Manual) Seg Neutrophils # Seg Neutrophils # Man Lymphocytes # (Manual) Monocytes # (Manual) PT D-Dimer Sodium 131 L Potassium Chloride 91.7 L Carbon Dioxide 31 H BUN Glucose 328 H Ferritin Lactate Dehydrogenase C-Reactive Protein Albumin Total Protein Ur Specific [place] Coronavirus (PCR) SARS-CoV-2 IgG Ab 03/30/20 03/31/20 03/31/20 05:09 05:43 05:43 WBC MCH RDW Plt Count Lymph % (Auto) [place] % (Auto) Lymph # (Auto) [place] # (Auto) Eos # (Auto) Seg Neutrophils % Seg Neuts % (Manual) Lymphocytes % (Manual) Seg Neutrophils # Seg Neutrophils # Man Lymphocytes # (Manual) Monocytes # (Manual) PT D-Dimer 734.03 H Sodium 136 L Potassium Chloride 96.2 L Carbon Dioxide BUN Glucose 297 H Ferritin 404.1 H Lactate Dehydrogenase C-Reactive Protein Albumin Total Protein Ur Specific [place] Coronavirus (PCR) SARS-CoV-2 IgG Ab 03/31/20 04/02/20 04/02/20 05:43 05:32 05:32 WBC MCH RDW Plt Count Lymph % (Auto) [place] % (Auto) Lymph # (Auto) [place] # (Auto) Eos # (Auto) Seg Neutrophils % Seg Neuts % (Manual) Lymphocytes % (Manual) Seg Neutrophils # Seg Neutrophils # Man Lymphocytes # (Manual) Monocytes # (Manual) PT D-Dimer 652.33 H Sodium Potassium Chloride Carbon Dioxide BUN Glucose Ferritin Lactate Dehydrogenase C-Reactive Protein 3.10 H 2.50 H Albumin Total Protein Ur Specific [place] Coronavirus (PCR) SARS-CoV-2 IgG Ab 04/04/20 04/08/20 04/08/20 17:15 04:51 04:51 WBC 12.1 H MCH 27 L RDW 16.5 H Plt Count Lymph % (Auto) 11.4 L [place] % (Auto) Lymph # (Auto) [place] # (Auto) Eos # (Auto) 0.5 H Seg Neutrophils % 77.7 H Seg Neuts % (Manual) Lymphocytes % (Manual) Seg Neutrophils # 9.4 H Seg Neutrophils # Man Lymphocytes # (Manual) Monocytes # (Manual) PT D-Dimer Sodium 130 L 133 L Potassium 3.0 L 3.4 L Chloride 90.6 L 93.4 L Carbon Dioxide 32 H 31 H BUN Glucose 135 H 114 H Ferritin Lactate Dehydrogenase C-Reactive Protein Albumin Total Protein Ur Specific [place] Coronavirus (PCR) SARS-CoV-2 IgG Ab 04/11/20 04/11/20 05:22 05:22 WBC 11.8 H MCH 27 L RDW 17.2 H Plt Count Lymph % (Auto) [place] % (Auto) 8.5 H Lymph # (Auto) [place] # (Auto) 1.0 H Eos # (Auto) 0.5 H Seg Neutrophils % Seg Neuts % (Manual) Lymphocytes % (Manual) Seg Neutrophils # 8.3 H Seg Neutrophils # Man Lymphocytes # (Manual) Monocytes # (Manual) PT D-Dimer Sodium Potassium Chloride Carbon Dioxide BUN Glucose Ferritin Lactate Dehydrogenase C-Reactive Protein Albumin 3.3 L Total Protein 6.1 L Ur Specific [place] Coronavirus (PCR) SARS-CoV-2 IgG Ab
[2020-04-16] MEDS ORDERED: FUROSEMIDE 20 MG/2 ML INJ IV ONE (12:52)
[2020-04-16] MEDS: QUEtiapine 25 MG TAB PO SCH ×2 (14:06→22:46)
[2020-04-16] MEDS: ENOXAPARIN 40 MG/0.4 ML INJ SUB-Q SCH (22:39)
[2020-04-16] MEDS: AMITRIPTYLINE 10 MG TAB PO SCH (22:42)
[2020-04-17] MEDS: methylPREDNISolone Sod Succinate 125 MG/2 ML INJ IV SCH (02:51)
--- NOTE | 2020-04-17 07:21 | Progress Note ---
Assessment and Plan 64 y/o female with acute on chronic respiratory failure secondary COVID 19 pneumonia. 04/17/20: Stopped steroiods and seroquel. Still can consider longer acting benzo therapy to help with anxiety until steroid effect wears off. No output documented on I/O so not accurate. No labs since 04/11 so will hold on lasix today. Ordered stat Chem and CBC. Suggest CM consult for possible LTACH placement given return of high oxygen requirement. Will repeat COVID test today. If negative, please start on BID pulmicort and brovana therapy along with spirva inhaler. 04/16/20: I added BID seroquel therapy today. If this does not help, could try longer acting benzo like klonopin bid but would not do both. Please continue steroids at current dosing at least another 48 hours to see if this helps with oxygenation given her history of COPD. Will also give a small dose of IV lasix. 04/15/20: No good explanation for drop in sats. Given her prior history of COPD, will restart steroids but solumedrol. Will place on 60q6. May need to look at LTACH for placement for senior care weaning of oxygen therapy until she reaches a more manageable flow rate. 04/14/20: Will discuss with dayshift RT what happened overnight to increase flow on oxygen therapy. Unfortunately, she cannot be discharged on 15 liters of flow. 04/13/20: If she can remain stable on 3 liters and ambulatory sats are stable with this would have no objection with discharge on 3 liters with 5 liter concentrator at home. 04/12/20: No new recs for today. Please see note from 04/11. CM can reach out to [employer] company about larger concentrator if available. 04/11/20: Would not discharge on 5 liters at rest unless the company can provide a large concentrator (7-10) liters. Patient would need a small buffer incase she got into trouble with desats and being on the max for the concentrator is not appropriate. Continue to wean as tolerated. Suggest a short trial of diuresis if I/O are accurate. 1. steroids are now off. Continue to wean FiO2 for sats >88% 2. Ordered nasal saline to help with moisture and nose bleeds secondary to prolonged high flow. 3. Prone as tolerated during the day and sleep prone at night. Patient has been noncompliant with this. Did not prone again last night. 4. Guarded prognosis given prolonged high levels of flow and oxygen requirements. However patient has improved significantly. 5. Now that stable on 2-3 liters, suggest walk test to determine oxygen needs with ambulation and if she can maintain adequate sats on 2-3 liters would have no objection with discharge. Subjective Date of service: 04/17/20 Principal diagnosis: COVID/COPD Interval history: steroids do not appear to be helping, and may be making matters worse by increasing her anxiety. Does not appear that seroquel helped either. Now on 40 liters and 100%. Objective Vital Signs - 12hr 04/16/20 04/16/20 04/16/20 21:47 21:48 22:00 Temperature Pulse Rate Pulse Rate [ 110 H From Monitor] Respiratory 20 Rate Blood Pressure O2 Sat by Pulse 82 L 93 96 Oximetry 04/16/20 04/16/20 04/17/20 22:13 22:40 03:23 Temperature 98.4 F Pulse Rate 138 H 120 H Pulse Rate [ From Monitor] Respiratory 17 Rate Blood Pressure 140/78 O2 Sat by Pulse 88 91 Oximetry 04/17/20 05:27 Temperature 97.8 F Pulse Rate 118 H Pulse Rate [ From Monitor] Respiratory 16 Rate Blood Pressure 159/89 O2 Sat by Pulse 92 Oximetry Constitutional: alert, other (critically ill on HFNC) Eyes: non-icteric Neck: supple Effort: mildly labored Ascultation: Bilateral: clear, diminished breath sounds, wheezes Cardiovascular: other (tachy, RR; no mrg) Gastrointestinal: normoactive bowel sounds, soft, non-tender Integumentary: normal Extremities: no cyanosis, no edema, pink and warm Neurologic: normal mental status, non-focal exam, CN II-XII normal Psychiatric: mood appropriate, other (very fidgety) CBC and BMP: 04/11/20 05:22 04/08/20 04:51 ABG, PT/INR, D-dimer: PT/INR, D-dimer PT 11.8 Sec. (12.2-14.9) L 03/13/20 16:24 INR 0.89 (0.87-1.13) 03/13/20 16:24 D-Dimer 652.33 ng/mlDDU (0-234) H 04/02/20 05:32 Abnormal lab findings: Abnormal Labs 03/13/20 03/13/20 03/13/20 16:24 16:24 16:24 WBC MCH RDW 16.8 H Plt Count Lymph % (Auto) 8.5 L [place] % (Auto) Lymph # (Auto) 0.6 L [place] # (Auto) Eos # (Auto) Seg Neutrophils % 84.9 H Seg Neuts % (Manual) Lymphocytes % (Manual) Seg Neutrophils # Seg Neutrophils # Man Lymphocytes # (Manual) Monocytes # (Manual) PT 11.8 L D-Dimer 234.66 H Sodium 135 L Potassium 3.1 L Chloride Carbon Dioxide BUN Glucose 174 H Ferritin Lactate Dehydrogenase 277 H C-Reactive Protein 8.00 H Albumin 3.7 L Total Protein Ur Specific [place] Coronavirus (PCR) SARS-CoV-2 IgG Ab 03/13/20 03/14/20 03/14/20 16:24 08:02 08:02 WBC 3.9 L MCH RDW 16.3 H Plt Count Lymph % (Auto) [place] % (Auto) 9.5 H Lymph # (Auto) 0.7 L [place] # (Auto) Eos # (Auto) Seg Neutrophils % 72.9 H Seg Neuts % (Manual) Lymphocytes % (Manual) Seg Neutrophils # Seg Neutrophils # Man Lymphocytes # (Manual) Monocytes # (Manual) PT D-Dimer Sodium Potassium Chloride 107.4 H Carbon Dioxide BUN Glucose 174 H 142 H Ferritin Lactate Dehydrogenase 267 H C-Reactive Protein 8.10 H Albumin Total Protein Ur Specific [place] Coronavirus (PCR) SARS-CoV-2 IgG Ab 03/14/20 03/14/20 03/14/20 16:58 16:58 Unknown WBC MCH RDW Plt Count Lymph % (Auto) [place] % (Auto) Lymph # (Auto) [place] # (Auto) Eos # (Auto) Seg Neutrophils % Seg Neuts % (Manual) Lymphocytes % (Manual) Seg Neutrophils # Seg Neutrophils # Man Lymphocytes # (Manual) Monocytes # (Manual) PT D-Dimer Sodium Potassium Chloride Carbon Dioxide BUN Glucose Ferritin Lactate Dehydrogenase 277 H C-Reactive Protein 2.60 H Albumin Total Protein Ur Specific [place] Coronavirus (PCR) Positive A SARS-CoV-2 IgG Ab Reactive A 03/16/20 03/16/20 03/16/20 05:18 05:18 10:34 WBC MCH RDW 16.4 H Plt Count Lymph % (Auto) [place] % (Auto) 10.0 H Lymph # (Auto) [place] # (Auto) Eos # (Auto) Seg Neutrophils % Seg Neuts % (Manual) Lymphocytes % (Manual) Seg Neutrophils # Seg Neutrophils # Man Lymphocytes # (Manual) Monocytes # (Manual) PT D-Dimer 278.32 H Sodium Potassium 3.1 L Chloride Carbon Dioxide BUN Glucose Ferritin Lactate Dehydrogenase C-Reactive Protein Albumin 3.4 L Total Protein Ur Specific [place] Coronavirus (PCR) SARS-CoV-2 IgG Ab 03/16/20 03/17/20 03/18/20 10:34 21:24 05:58 WBC 14.8 H MCH RDW 15.8 H Plt Count Lymph % (Auto) 11.5 L [place] % (Auto) Lymph # (Auto) [place] # (Auto) 1.0 H Eos # (Auto) Seg Neutrophils % 81.3 H Seg Neuts % (Manual) Lymphocytes % (Manual) Seg Neutrophils # 12.0 H Seg Neutrophils # Man Lymphocytes # (Manual) Monocytes # (Manual) PT D-Dimer Sodium Potassium Chloride Carbon Dioxide BUN Glucose 182 H Ferritin Lactate Dehydrogenase 268 H 268 H C-Reactive Protein 2.10 H 4.90 H Albumin Total Protein Ur Specific [place] Coronavirus (PCR) SARS-CoV-2 IgG Ab 03/18/20 03/21/20 03/21/20 05:58 05:27 05:27 WBC 14.1 H MCH 27 L RDW 16.1 H Plt Count 513 H Lymph % (Auto) 11.5 L [place] % (Auto) 7.9 H Lymph # (Auto) [place] # (Auto) 1.1 H Eos # (Auto) Seg Neutrophils % 78.4 H Seg Neuts % (Manual) Lymphocytes % (Manual) Seg Neutrophils # 11.1 H Seg Neutrophils # Man Lymphocytes # (Manual) Monocytes # (Manual) PT D-Dimer Sodium Potassium 2.9 L* Chloride Carbon Dioxide 18 L BUN Glucose Ferritin Lactate Dehydrogenase C-Reactive Protein Albumin 3.6 L 3.6 L Total Protein Ur Specific [place] Coronavirus (PCR) SARS-CoV-2 IgG Ab 03/22/20 03/22/20 03/22/20 15:45 15:45 15:45 WBC MCH RDW Plt Count Lymph % (Auto) [place] % (Auto) Lymph # (Auto) [place] # (Auto) Eos # (Auto) Seg Neutrophils % Seg Neuts % (Manual) Lymphocytes % (Manual) Seg Neutrophils # Seg Neutrophils # Man Lymphocytes # (Manual) Monocytes # (Manual) PT D-Dimer 274.02 H Sodium Potassium Chloride Carbon Dioxide BUN Glucose Ferritin Lactate Dehydrogenase 259 H C-Reactive Protein 7.60 H Albumin Total Protein Ur Specific [place] Coronavirus (PCR) SARS-CoV-2 IgG Ab 03/26/20 03/26/20 03/27/20 05:45 05:45 08:21 WBC 34.9 H MCH RDW 15.9 H Plt Count 579 H Lymph % (Auto) [place] % (Auto) Lymph # (Auto) [place] # (Auto) Eos # (Auto) Seg Neutrophils % Seg Neuts % (Manual) Lymphocytes % (Manual) Seg Neutrophils # Seg Neutrophils # Man Lymphocytes # (Manual) Monocytes # (Manual) PT D-Dimer Sodium 130 L 130 L Potassium Chloride 86.0 L 88.5 L Carbon Dioxide 35 H BUN 22 H Glucose 227 H 326 H Ferritin Lactate Dehydrogenase 213 H C-Reactive Protein 34.50 H Albumin Total Protein Ur Specific [place] Coronavirus (PCR) SARS-CoV-2 IgG Ab 03/27/20 03/27/20 03/27/20 08:21 18:45 18:45 WBC 42.1 H* MCH RDW 16.3 H Plt Count Lymph % (Auto) [place] % (Auto) Lymph # (Auto) [place] # (Auto) Eos # (Auto) Seg Neutrophils % Seg Neuts % (Manual) 91.0 H Lymphocytes % (Manual) 2.0 L Seg Neutrophils # Seg Neutrophils # Man 38.3 H Lymphocytes # (Manual) 0.8 L Monocytes # (Manual) 1.7 H PT D-Dimer Sodium Potassium Chloride Carbon Dioxide BUN Glucose Ferritin 400.5 H Lactate Dehydrogenase C-Reactive Protein 49.70 H Albumin Total Protein Ur Specific [place] Coronavirus (PCR) SARS-CoV-2 IgG Ab 03/28/20 03/28/20 03/28/20 07:51 07:51 07:51 WBC 32.2 H MCH 27 L RDW 16.3 H Plt Count Lymph % (Auto) [place] % (Auto) Lymph # (Auto) [place] # (Auto) Eos # (Auto) Seg Neutrophils % Seg Neuts % (Manual) 86.0 H Lymphocytes % (Manual) 10.0 L Seg Neutrophils # Seg Neutrophils # Man 27.7 H Lymphocytes # (Manual) Monocytes # (Manual) 1.3 H PT D-Dimer 1182.25 H Sodium Potassium Chloride Carbon Dioxide BUN Glucose Ferritin 514.4 H Lactate Dehydrogenase C-Reactive Protein Albumin Total Protein Ur Specific [place] Coronavirus (PCR) SARS-CoV-2 IgG Ab 03/28/20 03/28/20 03/29/20 07:51 17:48 05:07 WBC MCH RDW Plt Count Lymph % (Auto) [place] % (Auto) Lymph # (Auto) [place] # (Auto) Eos # (Auto) Seg Neutrophils % Seg Neuts % (Manual) Lymphocytes % (Manual) Seg Neutrophils # Seg Neutrophils # Man Lymphocytes # (Manual) Monocytes # (Manual) PT D-Dimer Sodium 136 L Potassium Chloride 93.0 L Carbon Dioxide 35 H BUN Glucose 243 H Ferritin Lactate Dehydrogenase 218 H C-Reactive Protein 18.00 H Albumin Total Protein Ur Specific [place] 1.036 H Coronavirus (PCR) SARS-CoV-2 IgG Ab 03/29/20 03/29/20 03/30/20 05:07 14:39 05:09 WBC 22.0 H 11.4 H MCH 27 L 27 L RDW 16.0 H 16.1 H Plt Count Lymph % (Auto) [place] % (Auto) Lymph # (Auto) [place] # (Auto) Eos # (Auto) Seg Neutrophils % Seg Neuts % (Manual) Lymphocytes % (Manual) Seg Neutrophils # Seg Neutrophils # Man Lymphocytes # (Manual) Monocytes # (Manual) PT D-Dimer Sodium 131 L Potassium Chloride 91.7 L Carbon Dioxide 31 H BUN Glucose 328 H Ferritin Lactate Dehydrogenase C-Reactive Protein Albumin Total Protein Ur Specific [place] Coronavirus (PCR) SARS-CoV-2 IgG Ab 03/30/20 03/31/20 03/31/20 05:09 05:43 05:43 WBC MCH RDW Plt Count Lymph % (Auto) [place] % (Auto) Lymph # (Auto) [place] # (Auto) Eos # (Auto) Seg Neutrophils % Seg Neuts % (Manual) Lymphocytes % (Manual) Seg Neutrophils # Seg Neutrophils # Man Lymphocytes # (Manual) Monocytes # (Manual) PT D-Dimer 734.03 H Sodium 136 L Potassium Chloride 96.2 L Carbon Dioxide BUN Glucose 297 H Ferritin 404.1 H Lactate Dehydrogenase C-Reactive Protein Albumin Total Protein Ur Specific [place] Coronavirus (PCR) SARS-CoV-2 IgG Ab 03/31/20 04/02/20 04/02/20 05:43 05:32 05:32 WBC MCH RDW Plt Count Lymph % (Auto) [place] % (Auto) Lymph # (Auto) [place] # (Auto) Eos # (Auto) Seg Neutrophils % Seg Neuts % (Manual) Lymphocytes % (Manual) Seg Neutrophils # Seg Neutrophils # Man Lymphocytes # (Manual) Monocytes # (Manual) PT D-Dimer 652.33 H Sodium Potassium Chloride Carbon Dioxide BUN Glucose Ferritin Lactate Dehydrogenase C-Reactive Protein 3.10 H 2.50 H Albumin Total Protein Ur Specific [place] Coronavirus (PCR) SARS-CoV-2 IgG Ab 04/04/20 04/08/20 04/08/20 17:15 04:51 04:51 WBC 12.1 H MCH 27 L RDW 16.5 H Plt Count Lymph % (Auto) 11.4 L [place] % (Auto) Lymph # (Auto) [place] # (Auto) Eos # (Auto) 0.5 H Seg Neutrophils % 77.7 H Seg Neuts % (Manual) Lymphocytes % (Manual) Seg Neutrophils # 9.4 H Seg Neutrophils # Man Lymphocytes # (Manual) Monocytes # (Manual) PT D-Dimer Sodium 130 L 133 L Potassium 3.0 L 3.4 L Chloride 90.6 L 93.4 L Carbon Dioxide 32 H 31 H BUN Glucose 135 H 114 H Ferritin Lactate Dehydrogenase C-Reactive Protein Albumin Total Protein Ur Specific [place] Coronavirus (PCR) SARS-CoV-2 IgG Ab 04/11/20 04/11/20 05:22 05:22 WBC 11.8 H MCH 27 L RDW 17.2 H Plt Count Lymph % (Auto) [place] % (Auto) 8.5 H Lymph # (Auto) [place] # (Auto) 1.0 H Eos # (Auto) 0.5 H Seg Neutrophils % Seg Neuts % (Manual) Lymphocytes % (Manual) Seg Neutrophils # 8.3 H Seg Neutrophils # Man Lymphocytes # (Manual) Monocytes # (Manual) PT D-Dimer Sodium Potassium Chloride Carbon Dioxide BUN Glucose Ferritin Lactate Dehydrogenase C-Reactive Protein Albumin 3.3 L Total Protein 6.1 L Ur Specific [place] Coronavirus (PCR) SARS-CoV-2 IgG Ab
[2020-04-17] MEDS: OXYBUTYNIN 5 MG TAB PO SCH ×3 (07:57→19:28)
[2020-04-17] MEDS: NYSTATIN 500,000 UNIT/5 ML ORAL LIQD PO SCH ×3 (07:57→19:28)
[2020-04-17] MEDS: GABAPENTIN 300 MG CAP PO SCH ×3 (07:57→19:28)
[2020-04-17] MEDS: ALPRAZolam 0.5 MG TAB PO PRN ×2 (08:26→16:48)
[2020-04-17] MEDS: oxyCODONE /ACETAMINOPHEN 5-325MG TAB PO PRN ×2 (11:31→19:30)
--- NOTE | 2020-04-17 11:42 | Progress Note ---
Assessment and Plan - Patient Problems (1) Sepsis Current Visit: Yes Status: Acute Qualifiers: Sepsis acute organ dysfunction status: with acute organ dysfunction Severe sepsis acute organ dysfunction type: acute respiratory failure Acute respiratory failure type: with hypoxia Severe sepsis shock status: without septic shock Plan to address problem: Sepsis protocol: Chest x-ray, CBC, CMP, blood culture, urinalysis, IV fluid resuscitation therapy, IV antibiotic therapy, monitor urine output every shift, monitor fluid balance, strict I's/O, daily weight, maintain mean arterial pressure greater than or equal to 65, serial lactic acid level (2) Acute hypoxemic respiratory failure Current Visit: Yes Status: Acute Plan to address problem: Supplemental oxygen, nebulizer therapy, pulse oximetry, prone position while in bed, pulmonary toilet. (3) Pneumonia Current Visit: Yes Status: Acute Qualifiers: Laterality: bilateral Plan to address problem: Pneumonia protocol: Chest x-ray, CBC, CMP, nebulizer therapy, pulse oximetry, IV antibiotic therapy, blood culture, pulmonary toilet. (4) Suspected COVID-19 virus infection Current Visit: Yes Status: Acute Plan to address problem: Coronavirus protocol: Contact precaution, isolation precautions, IV antibiotic therapy, IV steroid therapy, prone positioning while in bed, coronavirus PCR pending, prophylactic anticoagulation (5) COPD (chronic obstructive pulmonary disease) Current Visit: Yes Status: Chronic Qualifiers: Chronic bronchitis type: unspecified Plan to address problem: IV steroid therapy, supportive care, supplemental oxygen, IV antibiotic therapy. (6) GERD (gastroesophageal reflux disease) Current Visit: Yes Status: Chronic Qualifiers: Esophagitis presence: without esophagitis Qualified Code(s): K21.9 - Gastro-esophageal reflux disease without esophagitis Plan to address problem: PPI therapy, supportive care (7) Hypertension Current Visit: Yes Status: Chronic Qualifiers: Hypertension type: essential hypertension Qualified Code(s): I10 - Ess ential (primary) hypertension Plan to address problem: Monitor blood pressure every shift, continue medical management. (8) Hyperlipidemia Current Visit: Yes Status: Chronic Qualifiers: Hyperlipidemia type: mixed hyperlipidemia Qualified Code(s): E78.2 - Mixed hyperlipidemia Plan to address problem: Lipid panel, statin therapy, balanced diet, low-cholesterol diet. (9) Anxiety Current Visit: Yes Status: Acute Plan to address problem: Xanax 3 times daily as needed, verbal prompting, verbal redirection, supportive care. (10) DVT prophylaxis Current Visit: Yes Status: Acute Plan to address problem: SCD to bilateral lower extremities while in bed, prophylactic anticoagulation (11) Advance care planning Current Visit: Yes Status: Acute Plan to address problem: Disease education conducted, patient is full code, prognosis discussed, care plan discussed, patient knowledges understanding and agreement with care plan, +30 minutes. History Interval history: 64 YO Female HD #37 with acute hypoxemic respiratory failure, bilateral pneumonia, sepsis, Covid 19 Infection, Encephalopathy, Anxiety. Patient resting comfortably in bed. Patient continues to be somewhat anxious again today. No acute decompensation overnight. Patient remains medically stable. Hospitalist Physical - Constitutional Vitals: Temp Pulse Resp BP Pulse Ox 97.8 F 118 H 16 159/89 91 04/17/20 05:27 04/17/20 05:27 04/17/20 05:27 04/17/20 05:27 04/17/20 11:09 General appearance: Present: no acute distress, well-nourished - EENT Eyes: Present: PERRL ENT: hearing decreased - Neck Neck: Present: supple - Respiratory Respiratory effort: labored Respiratory: bilateral: diminished, rhonchi - Cardiovascular Rhythm: regular Heart Sounds: Present: S1 & S2 - Extremities Extremities: no ischemia Peripheral Pulses: within normal limits - Abdominal General gastrointestinal: soft, non-tender, non-distended - Integumentary Integumentary: Present: clear, dry - Psychiatric Psychiatric: no appropriate mood/affect, no intact judgment & insight, agitated - Neurologic Neurologic: CNII-XII intact, no focal deficits, moves all extremities, no gait normal HEART Score - HEART Score Troponin: Troponin T < 0.010 ng/mL (0.00-0.029) 03/13/20 16:24 Results - Labs CBC & Chem 7: 04/11/20 05:22 04/08/20 04:51 Labs: Laboratory Last Values WBC 11.8 K/mm3 (4.5-11.0) H 04/11/20 05:22 RBC 4.15 M/mm3 (3.65-5.03) 04/11/20 05:22 Hgb 11.1 gm/dl (10.1-14.3) 04/11/20 05:22 Hct 34.2 % (30.3-42.9) 04/11/20 05:22 MCV 83 fl (79-97) 04/11/20 05:22 MCH 27 pg (28-32) L 04/11/20 05:22 MCHC 33 % (30-34) 04/11/20 05:22 RDW 17.2 % (13.2-15.2) H 04/11/20 05:22 Plt Count 366 K/mm3 (140-440) 04/11/20 05:22 Lymph % (Auto) 16.3 % (13.4-35.0) 04/11/20 05:22 [place] % (Auto) 8.5 % (0.0-7.3) H 04/11/20 05:22 Eos % (Auto) 4.2 % (0.0-4.3) 04/11/20 05:22 Baso % (Auto) 1.0 % (0.0-1.8) 04/11/20 05:22 Lymph # (Auto) 1.9 K/mm3 (1.2-5.4) 04/11/20 05:22 [place] # (Auto) 1.0 K/mm3 (0.0-0.8) H 04/11/20 05:22 Eos # (Auto) 0.5 K/mm3 (0.0-0.4) H 04/11/20 05:22 Baso # (Auto) 0.1 K/mm3 (0.0-0.1) 04/11/20 05:22 Add Manual Diff Complete 03/28/20 07:51 Total Counted 100 03/28/20 07:51 Seg Neutrophils % 70.0 % (40.0-70.0) 04/11/20 05:22 Seg Neuts % (Manual) 86.0 % (40.0-70.0) H 03/28/20 07:51 Band Neutrophils % 3.0 % 03/27/20 08:21 Lymphocytes % (Manual) 10.0 % (13.4-35.0) L 03/28/20 07:51 Monocytes % (Manual) 4.0 % (0.0-7.3) 03/28/20 07:51 Nucleated RBC % Not Reportable 03/28/20 07:51 Seg Neutrophils # 8.3 K/mm3 (1.8-7.7) H 04/11/20 05:22 Seg Neutrophils # Man 27.7 K/mm3 (1.8-7.7) H 03/28/20 07:51 Band Neutrophils # 0.0 K/mm3 03/28/20 07:51 Lymphocytes # (Manual) 3.2 K/mm3 (1.2-5.4) 03/28/20 07:51 Abs React Lymphs (Man) 0.0 K/mm3 03/28/20 07:51 Monocytes # (Manual) 1.3 K/mm3 (0.0-0.8) H 03/28/20 07:51 Eosinophils # (Manual) 0.0 K/mm3 (0.0-0.4) 03/28/20 07:51 Basophils # (Manual) 0.0 K/mm3 (0.0-0.1) 03/28/20 07:51 Metamyelocytes # 0.0 K/mm3 03/28/20 07:51 Myelocytes # 0.0 K/mm3 03/28/20 07:51 Promyelocytes # 0.0 K/mm3 03/28/20 07:51 Blast Cells # 0.0 K/mm3 03/28/20 07:51 WBC Morphology Not Reportable 03/28/20 07:51 Hypersegmented Neuts Not Reportable 03/28/20 07:51 Hyposegmented Neuts Not Reportable 03/28/20 07:51 Hypogranular Neuts Not Reportable 03/28/20 07:51 Smudge Cells Not Reportable 03/28/20 07:51 Toxic Granulation Not Reportable 03/28/20 07:51 Toxic Vacuolation Few 03/28/20 07:51 Dohle Bodies Not Reportable 03/28/20 07:51 Pelger-Huet Anomaly Not Reportable 03/28/20 07:51 Natan Rods Not Reportable 03/28/20 07:51 Platelet Estimate Consistent w auto 03/28/20 07:51 Clumped Platelets Not Reportable 03/28/20 07:51 Plt Clumps, EDTA Not Reportable 03/28/20 07:51 Large Platelets Few 03/28/20 07:51 Giant Platelets Not Reportable 03/28/20 07:51 Platelet Satelliting Not Reportable 03/28/20 07:51 Plt Morphology Comment Not Reportable 03/28/20 07:51 RBC Morphology Normal 03/28/20 07:51 Dimorphic RBCs Not Reportable 03/28/20 07:51 Polychromasia Not Reportable 03/28/20 07:51 Hypochromasia Not Reportable 03/28/20 07:51 Poikilocytosis Not Reportable 03/28/20 07:51 Anisocytosis Not Reportable 03/28/20 07:51 Microcytosis Not Reportable 03/28/20 07:51 Macrocytosis Not Reportable 03/28/20 07:51 Spherocytes Not Reportable 03/28/20 07:51 Pappenheimer Bodies Not Reportable 03/28/20 07:51 Sickle Cells Not Reportable 03/28/20 07:51 Target Cells Not Reportable 03/28/20 07:51 Tear Drop Cells Not Reportable 03/28/20 07:51 Ovalocytes Not Reportable 03/28/20 07:51 Helmet Cells Not Reportable 03/28/20 07:51 [employer] Bodies Not Reportable 03/28/20 07:51 [place] Rings Not Reportable 03/28/20 07:51 [place]ia Cells Not Reportable 03/28/20 07:51 Bite Cells Not Reportable 03/28/20 07:51 Crenated Cell Not Reportable 03/28/20 07:51 Elliptocytes Not Reportable 03/28/20 07:51 Acanthocytes (Spur) Not Reportable 03/28/20 07:51 Rouleaux Not Reportable 03/28/20 07:51 Hemoglobin C Crystals Not Reportable 03/28/20 07:51 Schistocytes Not Reportable 03/28/20 07:51 Malaria parasites Not Reportable 03/28/20 07:51 [place] Bodies Not Reportable 03/28/20 07:51 Hem Pathologist Commnt No 03/28/20 07:51 PT 11.8 Sec. (12.2-14.9) L 03/13/20 16:24 INR 0.89 (0.87-1.13) 03/13/20 16:24 D-Dimer 652.33 ng/mlDDU (0-234) H 04/02/20 05:32 Sodium 133 mmol/L (137-145) L 04/08/20 04:51 Potassium 3.4 mmol/L (3.6-5.0) L 04/08/20 04:51 Chloride 93.4 mmol/L (98-107) L 04/08/20 04:51 Carbon Dioxide 31 mmol/L (22-30) H 04/08/20 04:51 Anion Gap 12 mmol/L 04/08/20 04:51 BUN 8 mg/dL (7-17) 04/08/20 04:51 Creatinine 0.6 mg/dL (0.6-1.2) 04/08/20 04:51 Estimated GFR > 60 ml/min 04/08/20 04:51 BUN/Creatinine Ratio 13 % 04/08/20 04:51 Glucose 114 mg/dL (65-100) H 04/08/20 04:51 Lactic Acid 1.70 mmol/L (0.7-2.0) 03/13/20 16:24 Calcium 9.6 mg/dL (8.4-10.2) 04/08/20 04:51 Magnesium 2.30 mg/dL (1.7-2.3) 04/08/20 04:51 Ferritin 183.1 ng/mL (10.0-200.0) 04/02/20 05:32 Total Bilirubin 0.30 mg/dL (0.1-1.2) 04/11/20 05:22 Direct Bilirubin < 0.2 mg/dL (0-0.2) 04/11/20 05:22 Indirect Bilirubin 0.1 mg/dL 04/11/20 05:22 AST 14 units/L (5-40) 04/11/20 05:22 ALT 12 units/L (7-56) 04/11/20 05:22 Alkaline Phosphatase 94 units/L (35-129) 04/11/20 05:22 Lactate Dehydrogenase 218 units/L (91-180) H 03/29/20 05:07 Total Creatine Kinase 42 units/L (30-135) 03/13/20 16:24 Troponin T < 0.010 ng/mL (0.00-0.029) 03/13/20 16:24 C-Reactive Protein 2.50 mg/dL (0.00-1.30) H 04/02/20 05:32 NT-Pro-B Natriuret Pep 220.0 pg/mL (0-900) 03/25/20 15:14 Total Protein 6.1 g/dL (6.3-8.2) L 04/11/20 05:22 Albumin 3.3 g/dL (3.9-5) L 04/11/20 05:22 Albumin/Globulin Ratio 1.2 % 04/11/20 05:22 Procalcitonin 1.16 ng/mL (<0.15) 03/27/20 18:45 Urine Color Yellow (Yellow) 03/28/20 17:48 Urine Turbidity Clear (Clear) 03/28/20 17:48 Urine pH 6.0 (5.0-7.0) 03/28/20 17:48 Ur Specific [place] 1.036 (1.003-1.030) H 03/28/20 17:48 Urine Protein 30 mg/dl mg/dL (Negative) 03/28/20 17:48 Urine Glucose (UA) >=500 mg/dL (Negative) 03/28/20 17:48 Urine Ketones Tr mg/dL (Negative) 03/28/20 17:48 Urine Blood Neg (Negative) 03/28/20 17:48 Urine Nitrite Neg (Negative) 03/28/20 17:48 Urine Bilirubin Neg (Negative) 03/28/20 17:48 Urine Urobilinogen < 2.0 mg/dL (<2.0) 03/28/20 17:48 Ur Leukocyte Esterase Tr (Negative) 03/28/20 17:48 Urine WBC (Auto) 5.0 /HPF (0.0-6.0) 03/28/20 17:48 Urine RBC (Auto) 2.0 /HPF (0.0-6.0) 03/28/20 17:48 U Epithel Cells (Auto) 2.0 /HPF (0-13.0) 03/28/20 17:48 Urine Mucus Few /HPF 03/28/20 17:48 Vancomycin Trough 5.7 ug/mL (5.0-20.0) 03/28/20 21:20 Coronavirus (PCR) Positive (Negative) A 03/14/20 Unknown SARS-CoV-2 IgG Ab Reactive (NonReactive) A 03/14/20 16:58 [place]/IV: Voiding Method Bedside Commode IV Catheter Type [Left Forearm Peripheral IV ] IV Catheter Type [Right INT / Saline Lock Forearm] IV Catheter Type [Right Wrist] INT / Saline Lock IV Catheter Type [Right Hand] INT / Saline Lock IV Catheter Type [Left Upper INT / Saline Lock arm] IV Catheter Type [Left Peripheral IV Antecubital] Active Medications - Current Medications Current Medications: Generic Name Dose Route Start Last Admin Trade Name Freq PRN Reason Stop Dose Admin Acetaminophen 650 mg 03/13/20 17:21 04/08/20 21:05 Acetaminophen 325 Mg Tab PO 650 mg Q4H PRN Administration Pain MILD(1-3)/Fever >100.5/CARIAS Albuterol 2.5 mg 03/13/20 17:21 Albuterol 2.5 Mg/3 Ml Nebu IH Q4HRT PRN Shortness Of Breath Alprazolam 0.5 mg 03/25/20 20:27 04/17/20 08:26 Alprazolam 0.5 Mg Tab PO 0.5 mg Q8H PRN Administration Anxiety Amitriptyline HCl 10 mg 03/25/20 22:00 04/16/20 22:42 Amitriptyline 10 Mg Tab PO 10 mg QHS SANDY Administration Ascorbic Acid 1,000 mg 03/26/20 10:00 04/16/20 22:39 Ascorbic Acid 500 Mg Tab PO 1,000 mg BID SNADY Administration Duloxetine HCl 60 mg 03/14/20 10:00 04/16/20 10:34 Duloxetine 30 Mg Cap PO 60 mg QDAY SANDY Administration Enoxaparin Sodium 40 mg 03/23/20 22:00 04/16/20 22:39 Enoxaparin 40 Mg/0.4 Ml Inj SUB-Q 40 mg QDAY@2200 SANDY Administration Protocol Ergocalciferol 50,000 unit 03/20/20 10:00 04/10/20 10:49 Ergocalciferol (Vit D2) 50,000 Unit Cap PO 50,000 unit [place] SANDY Administration Famotidine 10 mg 03/29/20 23:00 04/16/20 22:39 Famotidine 20 Mg Tab PO 10 mg BID SANDY Administration Gabapentin 300 mg 03/13/20 20:00 04/17/20 07:57 Gabapentin 300 Mg Cap PO 300 mg TID SANDY Administration Guaifenesin 10 ml 03/13/20 17:24 04/14/20 22:04 Guaifenesin Dm 200/20 Mg Oral Liqd 10 Ml PO 10 ml Q4H PRN Administration Cough Lamotrigine 100 mg 03/14/20 10:00 04/16/20 10:36 Lamotrigine 100 Mg Tab PO 100 mg QDAY SANDY Administration Metoprolol Tartrate 12.5 mg 03/31/20 22:00 04/16/20 22:40 Metoprolol Tartrate 25 Mg Tab PO 12.5 mg BID SANDY Administration Montelukast Sodium 10 mg 03/14/20 10:00 04/16/20 10:36 Montelukast 10 Mg Tab PO 10 mg DAILY SANDY Administration Nystatin 100,000 unit 04/14/20 14:00 04/17/20 07:57 Nystatin 500,000 Unit/5 Ml Oral Liqd PO 100,000 unit TID SANDY Administration Ondansetron HCl 4 mg 03/13/20 17:21 04/05/20 10:10 Ondansetron 4 Mg/2 Ml Inj IV 4 mg Q8H PRN Administration Nausea And Vomiting Oxybutynin Chloride 5 mg 03/13/20 20:00 04/17/20 07:57 Oxybutynin 5 Mg Tab PO 5 mg TID SANDY Administration Oxycodone/Acetaminophen 1 tab 03/30/20 08:06 04/17/20 11:31 Oxycodone /Acetaminophen 5-325mg Tab PO 1 tab Q6H PRN Administration Pain, Moderate (4-6) Phenol 1 spray 03/25/20 20:05 03/26/20 00:27 Phenol 1.4% 177 Ml Bottle MM 1 spray PRN PRN Administration Sore Throat Sodium Chloride 10 ml 03/13/20 17:21 04/15/20 22:23 Sodium Chloride 0.9% 10 Ml Flush Syringe IV 10 ml PRN PRN Administration LINE FLUSH Sodium Chloride 2 spray 04/06/20 10:00 04/16/20 22:43 Sodium Chloride Nasal [place] 44ml NS Not Given QID SANDY Zinc Sulfate 220 mg 03/26/20 10:00 04/16/20 22:41 Zinc Sulfate 220 Mg Cap PO 220 mg BID SANDY Administration Nutrition/Malnutrition Assess - Dietary Evaluation Nutrition/Malnutrition Findings: Nutrition Notes Start: 03/14/20 15:39 Freq: Status: Active Protocol: Document 04/15/20 11:21 AB (Rec: 04/15/20 11:36 AB [id number]) Co-Sign 04/15/20 11:21 LP Nutrition Notes Initial or Follow up Reassessment Current Diagnosis COPD,Sepsis,Hypertension, Hyperlipidemia Other Pertinent Diagnosis Pneu, COVID-19 (+), GERD Current Diet Cardiac Labs/Tests No new labs Pertinent Medications Vitamin D2 Solu-medrol Height 5 ft 1 in Weight 57.5 kg [place] Body Weight (kg) 47.72 BMI 23.9 Weight Status Appropriate Subjective/Other Information F/U for stable intakes, wt. Per tech, pt did not eat breakfast d/t loss of appetite and has been sipping on ONS. Only meal intake charted was lunch at 25% 04/14. Unable to reach pt by phone 2x. 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 No Is Patient Ambulatory and/or Out of Bed Yes REE-([facility]-ambulatory/OOB) [ 1368.094 [id number]] Calculation Used for Recommendations [facility] Additional Notes Pro needs 1-1.2g/k-76g/ day Fluid needs 1ml/kcal Nutrition Intervention Change Diet Order: Continue current diet order Add Supplement/Snack (indicate name/kcal Glucerna BID /protein ) Recommend: appetite stimulant Provides kCal: 440 Provides Protein (gm) 20 Goal #1 PO intake of meals plus ONS to meet at least 75% energy and pro needs. Anticipated Discharge Needs: Cardiac diet with ONS PRN Follow-Up By: 04/19/20 Additional Comments F/U for stable intakes (meals/ ONS), stable wt, new labs
[2020-04-17] MEDS: METOPROLOL TARTRATE 25 MG TAB PO SCH ×2 (11:43→22:04)
[2020-04-17 12:35] LABS: Hematocrit 35.8 % (30.3-42.9); Hemoglobin 11.5 gm/dl (10.1-14.3); Mean Corpuscular HGB Conc 32 % (30-34); Mean Corpuscular Volume 83 fl (79-97); Platelet Count 517 K/mm3 (140-440); Red Blood Count 4.33 M/mm3 (3.65-5.03); Red Cell Distribution Width 17.6 % (13.2-15.2)
[2020-04-17 12:55] LABS: BUN/Creatinine Ratio 34; Blood Urea Nitrogen 27 mg/dL (7-17); Calcium 9.9 mg/dL (8.4-10.2); Hemolysis Index 0
[2020-04-17] MEDS: ZINC SULFATE 220 MG CAP PO SCH ×2 (14:11→22:04)
[2020-04-17] MEDS: ASCORBIC ACID 500 MG TAB PO SCH ×2 (14:11→22:03)
[2020-04-17] MEDS: FAMOTIDINE 20 MG TAB PO SCH ×2 (14:11→22:04)
[2020-04-17] MEDS: ERGOCALCIFEROL (VIT D2) 50,000 UNIT CAP PO SCH (14:12)
[2020-04-17] MEDS: ONDANSETRON 4 MG/2 ML INJ IV PRN (14:12)
[2020-04-17] MEDS: lamoTRIgine 100 MG TAB PO SCH (14:12)
[2020-04-17] MEDS: DULoxetine 30 MG CAP PO SCH (14:12)
[2020-04-17] MEDS: MONTELUKAST 10 MG TAB PO SCH (16:48)
[2020-04-17] MEDS: SODIUM CHLORIDE NASAL SPRAY 44ML NS SCH ×4 (17:55→23:36)
[2020-04-17] MEDS: AMITRIPTYLINE 10 MG TAB PO SCH (22:04)
[2020-04-17] MEDS: ENOXAPARIN 40 MG/0.4 ML INJ SUB-Q SCH (22:04)
[2020-04-18] MEDS: ALPRAZolam 0.5 MG TAB PO PRN (00:50)
[2020-04-18] MEDS: oxyCODONE /ACETAMINOPHEN 5-325MG TAB PO PRN (01:34)
[2020-04-18] MEDS ORDERED: dilTIAZem 25 MG/5 ML INJ IV STA (05:56)
--- NOTE | 2020-04-18 08:11 | Progress Note ---
Assessment and Plan Assessment and plan: 64 YO Female with COPD, GERD, HTN, HLD, Anxiety, OA, Asthma Mild Intermittent, presents to ED for evaluation. Patient states that she has "not been feeling well" over the past 5 days with persistently worsening symptoms over the same timeframe. Patient states that she has experienced subjective fever, fatigue, muscle aches, generalized weakness, malaise, dry cough, decreased exercise tolerance, loss of sense of smell, loss of sense of taste, shortness of breath, nausea, multiple loose stools, and diminished oral intake. PT transported to [facility] via private vehicle for further care and evaluation of the aforementioned symptoms. The patient was seen and evaluated in the emergency department. All lab and imaging studies reviewed. The patient was found to be tachypneic with respiratory rate in the 30s as well as tachycardic with a pulse rate of 121, and a temperature of 101.9 F. Patient also found to have a pulse oximetry of 86% with exertion while on room air which is consistent with acute hypoxemic respiratory failure. The patient was also found to have a chest x-ray with bilateral pneumonia as well as as well as sepsis. Patient admitted to medical floor and initiated sepsis protocol. Patient also initiated on coronavirus protocol. Patient denies chills, chest pain, palpitations, productive cough, skin rash, recent ill contacts, or known exposure to COVID-19. 04/18: called this morning to evaluate patient persistent tachycardia altered mental status not following any commands on also on high flow with nonrebreather on 100%. Discussed with pulmonology from obtaining ABG. Will change to full dose anticoagulation due to elevated coagulopathy until we can rule out pulmo nary embolism. Will transfer to the ICU as patient will likely need to be intubated. I placed a call to the family to update and Spoke to daughter, agrees with Intubation and if no Turn around, will like to revisit goals of care. Acute anoxic encephalopathy Sepsis Current Visit: Yes Status: Acute Qualifiers: Sepsis acute organ dysfunction status: with acute organ dysfunction Severe sepsis acute organ dysfunction type: acute respiratory failure Acute respiratory failure type: with hypoxia Severe sepsis shock status: without septic shock Plan to address problem: Sepsis protocol: Chest x-ray, CBC, CMP, blood culture, urinalysis, IV fluid resuscitation therapy, IV antibiotic therapy, monitor urine output every shift, monitor fluid balance, strict I's/O, daily weight, maintain mean arterial pressure greater than or equal to 65, serial lactic acid level Acute hypoxemic respiratory failure Current Visit: Yes Status: Acute Plan to address problem: Supplemental oxygen, nebulizer therapy, pulse oximetry, prone position while in bed, pulmonary toilet. Pneumonia Current Visit: Yes Status: Acute Qualifiers: Laterality: bilateral Plan to address problem: Pneumonia protocol: Chest x-ray, CBC, CMP, nebulizer therapy, pulse oximetry, IV antibiotic therapy, blood culture, pulmonary toilet. COVID-19 virus infection Current Visit: Yes Status: Acute Plan to address problem: Coronavirus protocol: Contact precaution, isolation precautions, IV antibiotic therapy, IV steroid therapy, prone positioning while in bed, coronavirus PCR pending, prophylactic anticoagulation COPD (chronic obstructive pulmonary disease) Current Visit: Yes Status: Chronic Qualifiers: Chronic bronchitis type: unspecified Plan to address problem: IV steroid therapy, supportive care, supplemental oxygen, IV antibiotic therapy. GERD (gastroesophageal reflux disease) Current Visit: Yes Status: Chronic Qualifiers: Esophagitis presence: without esophagitis Qualified Code(s): K21.9 - Gastro-esophageal reflux disease without esophagitis Plan to address problem: PPI therapy, supportive care Hypertension Current Visit: Yes Status: Chronic Qualifiers: Hypertension type: essential hypertension Qualified Code(s): I10 - Essential (primary) hypertension Plan to address problem: Monitor blood pressure every shift, continue medical management. Hyperlipidemia Current Visit: Yes Status: Chronic Qualifiers: Hyperlipidemia type: mixed hyperlipidemia Qualified Code(s): E78.2 - Mixed hyperlipidemia Plan to address problem: Lipid panel, statin therapy, balanced diet, low-cholesterol diet. Anxiety Current Visit: Yes Status: Acute Plan to address problem: Xanax 3 times daily as needed, verbal prompting, verbal redirection, supportive care. DVT prophylaxis Current Visit: Yes Status: Acute Plan to address problem: SCD to bilateral lower extremities while in bed, prophylactic anticoagulation (11) Advance care planning Current Visit: Yes Status: Acute Plan to address problem: Disease education conducted, patient is full code, prognosis discussed, care plan discussed, patient knowledges understanding and agreement with care plan, +30 minutes. The high probability of a clinically significant, sudden or life threatening deterioration of the [pulmonary, cardaic, SALES DEVELOPMENT REPRESENTATIVE] system(s) required my full and direct attention, intervention and personal management. The aggregate critical care time was [45] minutes. This time is in addition to time spent performing reported procedures but includes the following: [x] Data Review and interpretation [x] Patient assessment and monitoring of vital signs [x] Documentation [x] Medication orders and management Hospitalist Physical - Constitutional Vitals: Temp Pulse Resp BP Pulse Ox 98.8 F 164 H 16 136/80 88 04/18/20 03:44 04/18/20 06:25 04/18/20 03:44 04/18/20 03:44 04/18/20 04:00 General appearance: Present: mild distress, well-nourished HEART Score - HEART Score Troponin: Troponin T < 0.010 ng/mL (0.00-0.029) 03/13/20 16:24 Results - Labs CBC & Chem 7: 04/17/20 11:10 04/17/20 11:10 Labs: Laboratory Last Values WBC 25.7 K/mm3 (4.5-11.0) H 04/17/20 11:10 RBC 4.33 M/mm3 (3.65-5.03) 04/17/20 11:10 Hgb 11.5 gm/dl (10.1-14.3) 04/17/20 11:10 Hct 35.8 % (30.3-42.9) 04/17/20 11:10 MCV 83 fl (79-97) 04/17/20 11:10 MCH 27 pg (28-32) L 04/17/20 11:10 MCHC 32 % (30-34) 04/17/20 11:10 RDW 17.6 % (13.2-15.2) H 04/17/20 11:10 Plt Count 517 K/mm3 (140-440) H 04/17/20 11:10 Lymph % (Auto) 16.3 % (13.4-35.0) 04/11/20 05:22 [place] % (Auto) 8.5 % (0.0-7.3) H 04/11/20 05:22 Eos % (Auto) 4.2 % (0.0-4.3) 04/11/20 05:22 Baso % (Auto) 1.0 % (0.0-1.8) 04/11/20 05:22 Lymph # (Auto) 1.9 K/mm3 (1.2-5.4) 04/11/20 05:22 [place] # (Auto) 1.0 K/mm3 (0.0-0.8) H 04/11/20 05:22 Eos # (Auto) 0.5 K/mm3 (0.0-0.4) H 04/11/20 05:22 Baso # (Auto) 0.1 K/mm3 (0.0-0.1) 04/11/20 05:22 Add Manual Diff Complete 03/28/20 07:51 Total Counted 100 03/28/20 07:51 Seg Neutrophils % 70.0 % (40.0-70.0) 04/11/20 05:22 Seg Neuts % (Manual) 86.0 % (40.0-70.0) H 03/28/20 07:51 Band Neutrophils % 3.0 % 03/27/20 08:21 Lymphocytes % (Manual) 10.0 % (13.4-35.0) L 03/28/20 07:51 Monocytes % (Manual) 4.0 % (0.0-7.3) 03/28/20 07:51 Nucleated RBC % Not Reportable 03/28/20 07:51 Seg Neutrophils # 8.3 K/mm3 (1.8-7.7) H 04/11/20 05:22 Seg Neutrophils # Man 27.7 K/mm3 (1.8-7.7) H 03/28/20 07:51 Band Neutrophils # 0.0 K/mm3 03/28/20 07:51 Lymphocytes # (Manual) 3.2 K/mm3 (1.2-5.4) 03/28/20 07:51 Abs React Lymphs (Man) 0.0 K/mm3 03/28/20 07:51 Monocytes # (Manual) 1.3 K/mm3 (0.0-0.8) H 03/28/20 07:51 Eosinophils # (Manual) 0.0 K/mm3 (0.0-0.4) 03/28/20 07:51 Basophils # (Manual) 0.0 K/mm3 (0.0-0.1) 03/28/20 07:51 Metamyelocytes # 0.0 K/mm3 03/28/20 07:51 Myelocytes # 0.0 K/mm3 03/28/20 07:51 Promyelocytes # 0.0 K/mm3 03/28/20 07:51 Blast Cells # 0.0 K/mm3 03/28/20 07:51 WBC Morphology Not Reportable 03/28/20 07:51 Hypersegmented Neuts Not Reportable 03/28/20 07:51 Hyposegmented Neuts Not Reportable 03/28/20 07:51 Hypogranular Neuts Not Reportable 03/28/20 07:51 Smudge Cells Not Reportable 03/28/20 07:51 Toxic Granulation Not Reportable 03/28/20 07:51 Toxic Vacuolation Few 03/28/20 07:51 Dohle Bodies Not Reportable 03/28/20 07:51 Pelger-Huet Anomaly Not Reportable 03/28/20 07:51 Natan Rods Not Reportable 03/28/20 07:51 Platelet Estimate Consistent w auto 03/28/20 07:51 Clumped Platelets Not Reportable 03/28/20 07:51 Plt Clumps, EDTA Not Reportable 03/28/20 07:51 Large Platelets Few 03/28/20 07:51 Giant Platelets Not Reportable 03/28/20 07:51 Platelet Satelliting Not Reportable 03/28/20 07:51 Plt Morphology Comment Not Reportable 03/28/20 07:51 RBC Morphology Normal 03/28/20 07:51 Dimorphic RBCs Not Reportable 03/28/20 07:51 Polychromasia Not Reportable 03/28/20 07:51 Hypochromasia Not Reportable 03/28/20 07:51 Poikilocytosis Not Reportable 03/28/20 07:51 Anisocytosis Not Reportable 03/28/20 07:51 Microcytosis Not Reportable 03/28/20 07:51 Macrocytosis Not Reportable 03/28/20 07:51 Spherocytes Not Reportable 03/28/20 07:51 Pappenheimer Bodies Not Reportable 03/28/20 07:51 Sickle Cells Not Reportable 03/28/20 07:51 Target Cells Not Reportable 03/28/20 07:51 Tear Drop Cells Not Reportable 03/28/20 07:51 Ovalocytes Not Reportable 03/28/20 07:51 Helmet Cells Not Reportable 03/28/20 07:51 [place] Bodies Not Reportable 03/28/20 07:51 [place] Rings Not Reportable 03/28/20 07:51 [place] Cells Not Reportable 03/28/20 07:51 Bite Cells Not Reportable 03/28/20 07:51 Crenated Cell Not Reportable 03/28/20 07:51 Elliptocytes Not Reportable 03/28/20 07:51 Acanthocytes (Spur) Not Reportable 03/28/20 07:51 Rouleaux Not Reportable 03/28/20 07:51 Hemoglobin C Crystals Not Reportable 03/28/20 07:51 Schistocytes Not Reportable 03/28/20 07:51 Malaria parasites Not Reportable 03/28/20 07:51 [place] Bodies Not Reportable 03/28/20 07:51 Hem Pathologist Commnt No 03/28/20 07:51 PT 11.8 Sec. (12.2-14.9) L 03/13/20 16:24 INR 0.89 (0.87-1.13) 03/13/20 16:24 D-Dimer 652.33 ng/mlDDU (0-234) H 04/02/20 05:32 Sodium 141 mmol/L (137-145) 04/17/20 11:10 Potassium 4.0 mmol/L (3.6-5.0) 04/17/20 11:10 Chloride 99.4 mmol/L (98-107) 04/17/20 11:10 Carbon Dioxide 26 mmol/L (22-30) 04/17/20 11:10 Anion Gap 20 mmol/L 04/17/20 11:10 BUN 27 mg/dL (7-17) H 04/17/20 11:10 Creatinine 0.8 mg/dL (0.6-1.2) 04/17/20 11:10 Estimated GFR > 60 ml/min 04/17/20 11:10 BUN/Creatinine Ratio 34 % 04/17/20 11:10 Glucose 305 mg/dL (65-100) H 04/17/20 11:10 POC Glucose 211 mg/dL (70-105) H 04/18/20 00:48 Lactic Acid 1.70 mmol/L (0.7-2.0) 03/13/20 16:24 Calcium 9.9 mg/dL (8.4-10.2) 04/17/20 11:10 Magnesium 2.30 mg/dL (1.7-2.3) 04/08/20 04:51 Ferritin 183.1 ng/mL (10.0-200.0) 04/02/20 05:32 Total Bilirubin 0.30 mg/dL (0.1-1.2) 04/11/20 05:22 Direct Bilirubin < 0.2 mg/dL (0-0.2) 04/11/20 05:22 Indirect Bilirubin 0.1 mg/dL 04/11/20 05:22 AST 14 units/L (5-40) 04/11/20 05:22 ALT 12 units/L (7-56) 04/11/20 05:22 Alkaline Phosphatase 94 units/L (35-129) 04/11/20 05:22 Lactate Dehydrogenase 218 units/L (91-180) H 03/29/20 05:07 Total Creatine Kinase 42 units/L (30-135) 03/13/20 16:24 Troponin T < 0.010 ng/mL (0.00-0.029) 03/13/20 16:24 C-Reactive Protein 2.50 mg/dL (0.00-1.30) H 04/02/20 05:32 NT-Pro-B Natriuret Pep 220.0 pg/mL (0-900) 03/25/20 15:14 Total Protein 6.1 g/dL (6.3-8.2) L 04/11/20 05:22 Albumin 3.3 g/dL (3.9-5) L 04/11/20 05:22 Albumin/Globulin Ratio 1.2 % 04/11/20 05:22 Procalcitonin 1.16 ng/mL (<0.15) 03/27/20 18:45 Urine Color Yellow (Yellow) 03/28/20 17:48 Urine Turbidity Clear (Clear) 03/28/20 17:48 Urine pH 6.0 (5.0-7.0) 03/28/20 17:48 Ur Specific [place] 1.036 (1.003-1.030) H 03/28/20 17:48 Urine Protein 30 mg/dl mg/dL (Negative) 03/28/20 17:48 Urine Glucose (UA) >=500 mg/dL (Negative) 03/28/20 17:48 Urine Ketones Tr mg/dL (Negative) 03/28/20 17:48 Urine Blood Neg (Negative) 03/28/20 17:48 Urine Nitrite Neg (Negative) 03/28/20 17:48 Urine Bilirubin Neg (Negative) 03/28/20 17:48 Urine Urobilinogen < 2.0 mg/dL (<2.0) 03/28/20 17:48 Ur Leukocyte Esterase Tr (Negative) 03/28/20 17:48 Urine WBC (Auto) 5.0 /HPF (0.0-6.0) 03/28/20 17:48 Urine RBC (Auto) 2.0 /HPF (0.0-6.0) 03/28/20 17:48 U Epithel Cells (Auto) 2.0 /HPF (0-13.0) 03/28/20 17:48 Urine Mucus Few /HPF 03/28/20 17:48 Vancomycin Trough 5.7 ug/mL (5.0-20.0) 03/28/20 21:20 Coronavirus (PCR) Negative (Negative) 04/17/20 07:22 SARS-CoV-2 IgG Ab Reactive (NonReactive) A 03/14/20 16:58 Sore[place]en/IV: Voiding Method Diaper IV Catheter Type [Left Forearm Peripheral IV ] IV Catheter Type [Right INT / Saline Lock Forearm] IV Catheter Type [Right Wrist] INT / Saline Lock IV Catheter Type [Right Hand] INT / Saline Lock IV Catheter Type [Left Upper INT / Saline Lock arm] IV Catheter Type [Left Peripheral IV Antecubital] Active Medications - Current Medications Current Medications: Generic Name Dose Route Start Last Admin Trade Name Freq PRN Reason Stop Dose Admin Acetaminophen 650 mg 03/13/20 17:21 04/08/20 21:05 Acetaminophen 325 Mg Tab PO 650 mg Q4H PRN Administration Pain MILD(1-3)/Fever >100.5/CARIAS Albuterol 2.5 mg 03/13/20 17:21 Albuterol 2.5 Mg/3 Ml Nebu IH Q4HRT PRN Shortness Of Breath Alprazolam 0.5 mg 03/25/20 20:27 04/18/20 00:50 Alprazolam 0.5 Mg Tab PO 0.5 mg Q8H PRN Administration Anxiety Amitriptyline HCl 10 mg 03/25/20 22:00 04/17/20 22:04 Amitriptyline 10 Mg Tab PO 10 mg QHS SANDY Administration Ascorbic Acid 1,000 mg 03/26/20 10:00 04/17/20 22:03 Ascorbic Acid 500 Mg Tab PO 1,000 mg BID SANDY Administration Duloxetine HCl 60 mg 03/14/20 10:00 04/17/20 14:12 Duloxetine 30 Mg Cap PO 60 mg QDAY SANDY Administration Enoxaparin Sodium 50 mg 04/18/20 10:00 Enoxaparin 100 Mg/1 Ml Inj 1 mg/kg (50 mg) SUB-Q Q12HR [facility] Protocol Ergocalciferol 50,000 unit 03/20/20 10:00 04/17/20 14:12 Ergocalciferol (Vit D2) 50,000 Unit Cap PO 50,000 unit [place] SANDY Administration Famotidine 10 mg 03/29/20 23:00 04/17/20 22:04 Famotidine 20 Mg Tab PO 10 mg BID SANDY Administration Gabapentin 300 mg 03/13/20 20:00 04/17/20 19:28 Gabapentin 300 Mg Cap PO 300 mg TID SANDY Administration Guaifenesin 10 ml 03/13/20 17:24 04/14/20 22:04 Guaifenesin Dm 200/20 Mg Oral Liqd 10 Ml PO 10 ml Q4H PRN Administration Cough Lamotrigine 100 mg 03/14/20 10:00 04/17/20 14:12 Lamotrigine 100 Mg Tab PO 100 mg QDAY SANDY Administration Metoprolol Tartrate 12.5 mg 03/31/20 22:00 04/17/20 22:04 Metoprolol Tartrate 25 Mg Tab PO 12.5 mg BID SANDY Administration Montelukast Sodium 10 mg 03/14/20 10:00 04/17/20 16:48 Montelukast 10 Mg Tab PO 10 mg DAILY SANDY Administration Nystatin 100,000 unit 04/14/20 14:00 04/17/20 19:28 Nystatin 500,000 Unit/5 Ml Oral Liqd PO 100,000 unit TID SANDY Administration Ondansetron HCl 4 mg 03/13/20 17:21 04/17/20 14:12 Ondansetron 4 Mg/2 Ml Inj IV 4 mg Q8H PRN Administration Nausea And Vomiting Oxybutynin Chloride 5 mg 03/13/20 20:00 04/17/20 19:28 Oxybutynin 5 Mg Tab PO 5 mg TID SANDY Administration Oxycodone/Acetaminophen 1 tab 03/30/20 08:06 04/18/20 01:34 Oxycodone /Acetaminophen 5-325mg Tab PO 1 tab Q6H PRN Administration Pain, Moderate (4-6) Phenol 1 spray 03/25/20 20:05 03/26/20 00:27 Phenol 1.4% 177 Ml Bottle MM 1 spray PRN PRN Administration Sore Throat Sodium Chloride 10 ml 03/13/20 17:21 04/15/20 22:23 Sodium Chloride 0.9% 10 Ml Flush Syringe IV 10 ml PRN PRN Administration LINE FLUSH Sodium Chloride 2 spray 04/06/20 10:00 04/17/20 23:36 Sodium Chloride Nasal [place] 44ml NS Not Given QID SANDY Zinc Sulfate 220 mg 03/26/20 10:00 04/17/20 22:04 Zinc Sulfate 220 Mg Cap PO 220 mg BID SANDY Administration Nutrition/Malnutrition Assess - Dietary Evaluation Nutrition/Malnutrition Findings: Nutrition Notes Start: 03/14/20 15:39 Freq: Status: Active Protocol: Document 04/15/20 11:21 AB (Rec: 04/15/20 11:36 AB [id number]) Co-Sign 04/15/20 11:21 LP Nutrition Notes Initial or Follow up Reassessment Current Diagnosis COPD,Sepsis,Hypertension, Hyperlipidemia Other Pertinent Diagnosis Pneu, COVID-19 (+), GERD Current Diet Cardiac Labs/Tests No new labs Pertinent Medications Vitamin D2 Solu-medrol Height 5 ft 1 in Weight 57.5 kg [place] Body Weight (kg) 47.72 BMI 23.9 Weight Status Appropriate Subjective/Other Information F/U for stable intakes, wt. Per tech, pt did not eat breakfast d/t loss of appetite and has been sipping on ONS. Only meal intake charted was lunch at 25% 04/14. Unable to reach pt by phone 2x. Percent of energy/protein needs met: 13%/11% (not including ONS) Burn Absent Trauma Absent GI Symptoms None Current % PO Poor (25-49%) Minimum of two criteria Yes Energy Intake (non-severe) <75% Estimated Energy Requirement >7 days Interpretation of Weight Loss (severe) >5% in 1 month Reduced Keyboard Teacher Strength Measurably Reduced (severe) #2 Nutrition Diagnosis Malnutrition Etiology COVID-19 (+) As Evidenced by Signs and Symptoms <75% of EER in 7 days, >5% wt loss in 1 mth, bilateral weak savings counselor strength #1 Nutrition Diagnosis Inadequate oral intake As Evidenced by Signs and Symptoms Pt ate 0% of breakfast and sips of ONS Diagnosis Progress(for reassessment Worsened documentation) Is patient on ventilator? No Is Patient Ambulatory and/or Out of Bed Yes REE-([facility]-ambulatory/OOB) [ 1368.094 [id number]] Calculation Used for Recommendations [facility] Additional Notes Pro needs 1-1.2g/k-76g/ day Fluid needs 1ml/kcal Nutrition Intervention Change Diet Order: Continue current diet order Add Supplement/Snack (indicate name/kcal Glucerna BID /protein ) Recommend: appetite stimulant Provides kCal: 440 Provides Protein (gm) 20 Goal #1 PO intake of meals plus ONS to meet at least 75% energy and pro needs. Anticipated Discharge Needs: Cardiac diet with ONS PRN Follow-Up By: 04/19/20 Additional Comments F/U for stable intakes (meals/ ONS), stable wt, new labs
[2020-04-18] MEDS ORDERED: ETOMIDATE 20 MG/10 ML INJ IV ONE ×2 (08:47→08:50)
[2020-04-18] MEDS ORDERED: ROCURONIUM 50 MG/5 ML INJ IV ONE (08:47)
[2020-04-18] MEDS ORDERED: SUCCINYLCHOLINE CHLORIDE 200 MG/10 ML INJ MDV ONE (08:47)
[2020-04-18] MEDS ORDERED: SUCCINYLCHOLINE CHLORIDE 200 MG/10 ML INJ MDV IV ONE (08:50)
[2020-04-18] MEDS ORDERED: LIP THERAPY VASELINE TP PRN (09:20)
[2020-04-18] MEDS ORDERED: MINERAL OIL/PETROLATUM, WHITE OPHTH OINT 3.5 GM OU PRN (09:20)
--- NOTE | 2020-04-18 09:23 | Event Note ---
Date: 04/18/20 (ICU Intubation) Called to ICU for emergent intubation of patient with acute respiratory failure, possibly 2/2 COVID-19. Donned PPE per protocol prior to patient contact. On arrival, patient noted to be agitated, BP 125/60 HR 160s (regular) SpO2 88% on NRB. RT and RN at bedside. Preoxygenated with 100% via AMBU. RSI with etomidate 20mg IV and succinylcholine 100mg IV. Easy intubation x1 attempt with glidescope 3, grade 1 view. 7.5 oETT secured at 20cm at the teeth. Endotracheal placement confirmed with direct visualization and +CO2 color change. Placed on vent by RT. Post-intubation VS 140s/70s HR 150s (regular) SpO2 96%. Sedation and CXR orders per ICU team. Times: 0847 - 0811 Ngozi Bailey MD Anesthesiologist
--- NOTE | 2020-04-18 09:55 | XRay Report ---
XR chest 1V ap, XR abdomen 1V ap INDICATION / CLINICAL INFORMATION: PNUEMONIA. COMPARISON: 03/29/2020. FINDINGS: SUPPORT DEVICES: Endotracheal tube projects 2 cm above the eugenio. The nasogastric tube tip terminate s over the mid esophagus. HEART /PULMONARY VASCULATURE: No significant abnormality. LUNGS / PLEURA: Mild improvement in bilateral pulmonary airspace disease which remains most pronounce d within the left mid and lower lung. No sizable pleural effusion or pneumothorax. ADDITIONAL FINDINGS: Nonspecific mild gaseous distention of the small bowel and colon. IMPRESSION: 1. Enteric catheter terminates in the region of the mid esophagus. Recommend advancement and reimagin g prior to use. 2. Endotracheal tube projects 2 cm above the eugenio. 3. Otherwise stable examination. Signer Name: Alexander Prasad MD Signed: 04/18/2020 9:51 AM Workstation Name: [id number]
[2020-04-18] MEDS ORDERED: ENOXAPARIN 100 MG/1 ML INJ SUB-Q SCH (10:00)
[2020-04-18] MEDS ORDERED: ENOXAPARIN 60 MG/0.6 ML INJ SUB-Q SCH (10:00)
[2020-04-18] MEDS ORDERED: ADENOSINE 6 MG/2 ML INJ ONE ×2 (10:12)
[2020-04-18] MEDS ORDERED: ADENOSINE 6 MG/2 ML INJ IV ONE ×2 (11:19)
--- NOTE | 2020-04-18 11:44 | Progress Note ---
Assessment and Plan 64 y/o female with acute on chronic respiratory failure secondary COVID 19 pneumonia. 04/18/20: Now intubated, on 100% and PEEP of 10. Gave several rounds of adenosine and it did appear to be sinus from what I could tell, but I suspect t hat this is fib flutter but secondary to prolong hypoxemia or MAT from COPD exacerbation but could not break with adenosine. WIll bolus with amio and load accordingly. Will increase PEEP to 12 as BP has been stable. Repeat COVID test on yesterday was negative. However will continue isolation. If not able to improve oxygenation will prone. Unable to see CXR images but per report, CXR is stable. Guarded prognosis. CCT 31 minutes. 04/17/20: Stopped steroiods and seroquel. Still can consider longer acting benzo therapy to help with anxiety until steroid effect wears off. No output documented on I/O so not accurate. No labs since 04/11 so will hold on lasix today. Ordered stat Chem and CBC. Suggest CM consult for possible LTACH placement given return of high oxygen requirement. Will repeat COVID test today. If negative, please start on BID pulmicort and brovana therapy along w ith spirva inhaler. 04/16/20: I added BID seroquel therapy today. If this does not help, could try longer acting benzo like klonopin bid but would not do both. Please continue steroids at current dosing at least another 48 hours to see if this helps with oxygenation given her history of COPD. Will also give a small dose of IV lasix. 04/15/20: No good explanation for drop in sats. Given her prior history of COPD, will restart steroids but solumedrol. Will place on 60q6. 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 04/14/20: Will discuss with dayshift RT what happened overnight to increase flow on oxygen therapy. Unfortunately, she cannot be discharged on 15 liters of flow. 04/13/20: If she can remain stable on 3 liters and ambulatory sats are stable with this would have no objection with discharge on 3 liters with 5 liter concentrator at home. 04/12/20: No new recs for today. Please see note from 04/11. CM can reach out to [employer] about larger concentrator if available. 04/11/20: Would not discharge on 5 liters at rest unless the company can provide a large concentrator (7-10) liters. Patient would need a small buffer incase she got into trouble with desats and being on the max for the concentrator is not appropriate. Continue to wean as tolerated. Suggest a short trial of diu resis if I/O are accurate. 1. steroids are now off. Continue to wean FiO2 for sats >88% 2. Ordered nasal saline to help with moisture and nose bleeds secondary to prolonged high flow. 3. Prone as tolerated during the day and sleep prone at night. Patient has been noncompliant with this. Did not prone again last night. 4. Guarded prognosis given prolonged high levels of flow and oxygen requ irements. However patient has improved significantly. 5. Now that stable on 2-3 liters, suggest walk test to determine oxygen needs with ambulation and if she can maintain adequate sats on 2-3 liters would have no objection with discharge. Subjective Date of service: 04/18/20 Principal diagnosis: COVID/COPD Interval history: Tachycardic up to the 160's this morning with increasing oxygen requirement. Elective intubation done by anesthesia in the ICU. Still tachy. No fever. PaO2 is only 59 on 100%. Currently sedated with diprovan. Objective Vital Signs - 12hr 04/17/20 04/18/20 04/18/20 23:44 00:57 03:44 Temperature 97.8 F 98.8 F Pulse Rate 139 H 138 H Respiratory 16 17 16 Rate Blood Pressure 138/78 136/80 Blood Pressure 151/82 [Right] O2 Sat by Pulse 87 89 88 Oximetry 04/18/20 04/18/20 04/18/20 04:00 06:25 09:07 Temperature Pulse Rate 164 H 164 H Respiratory Rate Blood Pressure 136/80 Blood Pressure [Right] O2 Sat by Pulse 88 96 Oximetry 04/18/20 11:36 Temperature Pulse Rate 154 H Respiratory Rate Blood Pressure 100/60 Blood Pressure [Right] O2 Sat by Pulse 96 Oximetry Constitutional: alert, other (critically ill on HFNC) Eyes: non-icteric Neck: supple Effort: mildly labored Ascultation: Bilateral: clear, diminished breath sounds, wheezes Cardiovascular: other (tachy, RR; no mrg) Gastrointestinal: normoactive bowel sounds, soft, non-tender Integumentary: normal Extremities: no cyanosis, no edema, pink and warm Neurologic: normal mental status, non-focal exam, CN II-XII normal Psychiatric: mood appropriate, other (very fidgety) CBC and BMP: 04/17/20 11:10 04/17/20 11:10 ABG, PT/INR, D-dimer: ABG ABG pH 7.351 (7.320-7.450) 04/18/20 10:53 POC ABG pCO2 45.4 mmHg (32.0-48.0) 04/18/20 10:53 POC ABG pO2 59.8 mmHg (83-108) L 04/18/20 10:53 POC ABG HCO3 24.6 04/18/20 10:53 PT/INR, D-dimer PT 11.8 Sec. (12.2-14.9) L 03/13/20 16:24 INR 0.89 (0.87-1.13) 03/13/20 16:24 D-Dimer 652.33 ng/mlDDU (0-234) H 04/02/20 05:32 Abnormal lab findings: Abnormal Labs 03/13/20 03/13/20 03/13/20 16:24 16:24 16:24 WBC MCH RDW 16.8 H Plt Count Lymph % (Auto) 8.5 L [place] % (Auto) Lymph # (Auto) 0.6 L [place] # (Auto) Eos # (Auto) Seg Neutrophils % 84.9 H Seg Neuts % (Manual) Lymphocytes % (Manual) Seg Neutrophils # Seg Neutrophils # Man Lymphocytes # (Manual) Monocytes # (Manual) PT 11.8 L D-Dimer 234.66 H POC ABG pO2 ABG Oxyhemoglobin ABG Sodium ABG Glucose Sodium 135 L Potassium 3.1 L Chloride Carbon Dioxide BUN Glucose 174 H POC Glucose Ferritin Lactate Dehydrogenase 277 H C-Reactive Protein 8.00 H Albumin 3.7 L Total Protein Arterial Blood Glucose Ur Specific [place] Coronavirus (PCR) SARS-CoV-2 IgG Ab 03/13/20 03/14/20 03/14/20 16:24 08:02 08:02 WBC 3.9 L MCH RDW 16.3 H Plt Count Lymph % (Auto) [place] % (Auto) 9.5 H Lymph # (Auto) 0.7 L [place] # (Auto) Eos # (Auto) Seg Neutrophils % 72.9 H Seg Neuts % (Manual) Lymphocytes % (Manual) Seg Neutrophils # Seg Neutrophils # Man Lymphocytes # (Manual) Monocytes # (Manual) PT D-Dimer POC ABG pO2 ABG Oxyhemoglobin ABG Sodium ABG Glucose Sodium Potassium Chloride 107.4 H Carbon Dioxide BUN Glucose 174 H 142 H POC Glucose Ferritin Lactate Dehydrogenase 267 H C-Reactive Protein 8.10 H Albumin Total Protein Arterial Blood Glucose Ur Specific [place] Coronavirus (PCR) SARS-CoV-2 IgG Ab 03/14/20 03/14/20 03/14/20 16:58 16:58 Unknown WBC MCH RDW Plt Count Lymph % (Auto) [place] % (Auto) Lymph # (Auto) [place] # (Auto) Eos # (Auto) Seg Neutrophils % Seg Neuts % (Manual) Lymphocytes % (Manual) Seg Neutrophils # Seg Neutrophils # Man Lymphocytes # (Manual) Monocytes # (Manual) PT D-Dimer POC ABG pO2 ABG Oxyhemoglobin ABG Sodium ABG Glucose Sodium Potassium Chloride Carbon Dioxide BUN Glucose POC Glucose Ferritin Lactate Dehydrogenase 277 H C-Reactive Protein 2.60 H Albumin Total Protein Arterial Blood Glucose Ur Specific [place] Coronavirus (PCR) Positive A SARS-CoV-2 IgG Ab Reactive A 03/16/20 03/16/20 03/16/20 05:18 05:18 10:34 WBC MCH RDW 16.4 H Plt Count Lymph % (Auto) [place] % (Auto) 10.0 H Lymph # (Auto) [place] # (Auto) Eos # (Auto) Seg Neutrophils % Seg Neuts % (Manual) Lymphocytes % (Manual) Seg Neutrophils # Seg Neutrophils # Man Lymphocytes # (Manual) Monocytes # (Manual) PT D-Dimer 278.32 H POC ABG pO2 ABG Oxyhemoglobin ABG Sodium ABG Glucose Sodium Potassium 3.1 L Chloride Carbon Dioxide BUN Glucose POC Glucose Ferritin Lactate Dehydrogenase C-Reactive Protein Albumin 3.4 L Total Protein Arterial Blood Glucose Ur Specific [place] Coronavirus (PCR) SARS-CoV-2 IgG Ab 03/16/20 03/17/20 03/18/20 10:34 21:24 05:58 WBC 14.8 H MCH RDW 15.8 H Plt Count Lymph % (Auto) 11.5 L [place] % (Auto) Lymph # (Auto) [place] # (Auto) 1.0 H Eos # (Auto) Seg Neutrophils % 81.3 H Seg Neuts % (Manual) Lymphocytes % (Manual) Seg Neutrophils # 12.0 H Seg Neutrophils # Man Lymphocytes # (Manual) Monocytes # (Manual) PT D-Dimer POC ABG pO2 ABG Oxyhemoglobin ABG Sodium ABG Glucose Sodium Potassium Chloride Carbon Dioxide BUN Glucose 182 H POC Glucose Ferritin Lactate Dehydrogenase 268 H 268 H C-Reactive Protein 2.10 H 4.90 H Albumin Total Protein Arterial Blood Glucose Ur Specific [place] Coronavirus (PCR) SARS-CoV-2 IgG Ab 03/18/20 03/21/20 03/21/20 05:58 05:27 05:27 WBC 14.1 H MCH 27 L RDW 16.1 H Plt Count 513 H Lymph % (Auto) 11.5 L [place] % (Auto) 7.9 H Lymph # (Auto) [place] # (Auto) 1.1 H Eos # (Auto) Seg Neutrophils % 78.4 H Seg Neuts % (Manual) Lymphocytes % (Manual) Seg Neutrophils # 11.1 H Seg Neutrophils # Man Lymphocytes # (Manual) Monocytes # (Manual) PT D-Dimer POC ABG pO2 ABG Oxyhemoglobin ABG Sodium ABG Glucose Sodium Potassium 2.9 L* Chloride Carbon Dioxide 18 L BUN Glucose POC Glucose Ferritin Lactate Dehydrogenase C-Reactive Protein Albumin 3.6 L 3.6 L Total Protein Arterial Blood Glucose Ur Specific [place] Coronavirus (PCR) SARS-CoV-2 IgG Ab 03/22/20 03/22/20 03/22/20 15:45 15:45 15:45 WBC MCH RDW Plt Count Lymph % (Auto) [place] % (Auto) Lymph # (Auto) [place] # (Auto) Eos # (Auto) Seg Neutrophils % Seg Neuts % (Manual) Lymphocytes % (Manual) Seg Neutrophils # Seg Neutrophils # Man Lymphocytes # (Manual) Monocytes # (Manual) PT D-Dimer 274.02 H POC ABG pO2 ABG Oxyhemoglobin ABG Sodium ABG Glucose Sodium Potassium Chloride Carbon Dioxide BUN Glucose POC Glucose Ferritin Lactate Dehydrogenase 259 H C-Reactive Protein 7.60 H Albumin Total Protein Arterial Blood Glucose Ur Specific [place] Coronavirus (PCR) SARS-CoV-2 IgG Ab 03/26/20 03/26/20 03/27/20 05:45 05:45 08:21 WBC 34.9 H MCH RDW 15.9 H Plt Count 579 H Lymph % (Auto) [place] % (Auto) Lymph # (Auto) [place] # (Auto) Eos # (Auto) Seg Neutrophils % Seg Neuts % (Manual) Lymphocytes % (Manual) Seg Neutrophils # Seg Neutrophils # Man Lymphocytes # (Manual) Monocytes # (Manual) PT D-Dimer POC ABG pO2 ABG Oxyhemoglobin ABG Sodium ABG Glucose Sodium 130 L 130 L Potassium Chloride 86.0 L 88.5 L Carbon Dioxide 35 H BUN 22 H Glucose 227 H 326 H POC Glucose Ferritin Lactate Dehydrogenase 213 H C-Reactive Protein 34.50 H Albumin Total Protein Arterial Blood Glucose Ur Specific [place] Coronavirus (PCR) SARS-CoV-2 IgG Ab 03/27/20 03/27/20 03/27/20 08:21 18:45 18:45 WBC 42.1 H* MCH RDW 16.3 H Plt Count Lymph % (Auto) [place] % (Auto) Lymph # (Auto) [place] # (Auto) Eos # (Auto) Seg Neutrophils % Seg Neuts % (Manual) 91.0 H Lymphocytes % (Manual) 2.0 L Seg Neutrophils # Seg Neutrophils # Man 38.3 H Lymphocytes # (Manual) 0.8 L Monocytes # (Manual) 1.7 H PT D-Dimer POC ABG pO2 ABG Oxyhemoglobin ABG Sodium ABG Glucose Sodium Potassium Chloride Carbon Dioxide BUN Glucose POC Glucose Ferritin 400.5 H Lactate Dehydrogenase C-Reactive Protein 49.70 H Albumin Total Protein Arterial Blood Glucose Ur Specific [place] Coronavirus (PCR) SARS-CoV-2 IgG Ab 03/28/20 03/28/20 03/28/20 07:51 07:51 07:51 WBC 32.2 H MCH 27 L RDW 16.3 H Plt Count Lymph % (Auto) [place] % (Auto) Lymph # (Auto) [place] # (Auto) Eos # (Auto) Seg Neutrophils % Seg Neuts % (Manual) 86.0 H Lymphocytes % (Manual) 10.0 L Seg Neutrophils # Seg Neutrophils # Man 27.7 H Lymphocytes # (Manual) Monocytes # (Manual) 1.3 H PT D-Dimer 1182.25 H POC ABG pO2 ABG Oxyhemoglobin ABG Sodium ABG Glucose Sodium Potassium Chloride Carbon Dioxide BUN Glucose POC Glucose Ferritin 514.4 H Lactate Dehydrogenase C-Reactive Protein Albumin Total Protein Arterial Blood Glucose Ur Specific [place] Coronavirus (PCR) SARS-CoV-2 IgG Ab 03/28/20 03/28/20 03/29/20 07:51 17:48 05:07 WBC MCH RDW Plt Count Lymph % (Auto) [place] % (Auto) Lymph # (Auto) [place] # (Auto) Eos # (Auto) Seg Neutrophils % Seg Neuts % (Manual) Lymphocytes % (Manual) Seg Neutrophils # Seg Neutrophils # Man Lymphocytes # (Manual) Monocytes # (Manual) PT D-Dimer POC ABG pO2 ABG Oxyhemoglobin ABG Sodium ABG Glucose Sodium 136 L Potassium Chloride 93.0 L Carbon Dioxide 35 H BUN Glucose 243 H POC Glucose Ferritin Lactate Dehydrogenase 218 H C-Reactive Protein 18.00 H Albumin Total Protein Arterial Blood Glucose Ur Specific [place] 1.036 H Coronavirus (PCR) SARS-CoV-2 IgG Ab 03/29/20 03/29/20 03/30/20 05:07 14:39 05:09 WBC 22.0 H 11.4 H MCH 27 L 27 L RDW 16.0 H 16.1 H Plt Count Lymph % (Auto) [place] % (Auto) Lymph # (Auto) [place] # (Auto) Eos # (Auto) Seg Neutrophils % Seg Neuts % (Manual) Lymphocytes % (Manual) Seg Neutrophils # Seg Neutrophils # Man Lymphocytes # (Manual) Monocytes # (Manual) PT D-Dimer POC ABG pO2 ABG Oxyhemoglobin ABG Sodium ABG Glucose Sodium 131 L Potassium Chloride 91.7 L Carbon Dioxide 31 H BUN Glucose 328 H POC Glucose Ferritin Lactate Dehydrogenase C-Reactive Protein Albumin Total Protein Arterial Blood Glucose Ur Specific [place] Coronavirus (PCR) SARS-CoV-2 IgG Ab 03/30/20 03/31/20 03/31/20 05:09 05:43 05:43 WBC MCH RDW Plt Count Lymph % (Auto) [place] % (Auto) Lymph # (Auto) [place] # (Auto) Eos # (Auto) Seg Neutrophils % Seg Neuts % (Manual) Lymphocytes % (Manual) Seg Neutrophils # Seg Neutrophils # Man Lymphocytes # (Manual) Monocytes # (Manual) PT D-Dimer 734.03 H POC ABG pO2 ABG Oxyhemoglobin ABG Sodium ABG Glucose Sodium 136 L Potassium Chloride 96.2 L Carbon Dioxide BUN Glucose 297 H POC Glucose Ferritin 404.1 H Lactate Dehydrogenase C-Reactive Protein Albumin Total Protein Arterial Blood Glucose Ur Specific [place] Coronavirus (PCR) SARS-CoV-2 IgG Ab 03/31/20 04/02/20 04/02/20 05:43 05:32 05:32 WBC MCH RDW Plt Count Lymph % (Auto) [place] % (Auto) Lymph # (Auto) [place] # (Auto) Eos # (Auto) Seg Neutrophils % Seg Neuts % (Manual) Lymphocytes % (Manual) Seg Neutrophils # Seg Neutrophils # Man Lymphocytes # (Manual) Monocytes # (Manual) PT D-Dimer 652.33 H POC ABG pO2 ABG Oxyhemoglobin ABG Sodium ABG Glucose Sodium Potassium Chloride Carbon Dioxide BUN Glucose POC Glucose Ferritin Lactate Dehydrogenase C-Reactive Protein 3.10 H 2.50 H Albumin Total Protein Arterial Blood Glucose Ur Specific [place] Coronavirus (PCR) SARS-CoV-2 IgG Ab 04/04/20 04/08/20 04/08/20 17:15 04:51 04:51 WBC 12.1 H MCH 27 L RDW 16.5 H Plt Count Lymph % (Auto) 11.4 L [place] % (Auto) Lymph # (Auto) [place] # (Auto) Eos # (Auto) 0.5 H Seg Neutrophils % 77.7 H Seg Neuts % (Manual) Lymphocytes % (Manual) Seg Neutrophils # 9.4 H Seg Neutrophils # Man Lymphocytes # (Manual) Monocytes # (Manual) PT D-Dimer POC ABG pO2 ABG Oxyhemoglobin ABG Sodium ABG Glucose Sodium 130 L 133 L Potassium 3.0 L 3.4 L Chloride 90.6 L 93.4 L Carbon Dioxide 32 H 31 H BUN Glucose 135 H 114 H POC Glucose Ferritin Lactate Dehydrogenase C-Reactive Protein Albumin Total Protein Arterial Blood Glucose Ur Specific [place] Coronavirus (PCR) SARS-CoV-2 IgG Ab 04/11/20 04/11/20 04/17/20 05:22 05:22 11:10 WBC 11.8 H 25.7 H MCH 27 L 27 L RDW 17.2 H 17.6 H Plt Count 517 H Lymph % (Auto) [place] % (Auto) 8.5 H Lymph # (Auto) [place] # (Auto) 1.0 H Eos # (Auto) 0.5 H Seg Neutrophils % Seg Neuts % (Manual) Lymphocytes % (Manual) Seg Neutrophils # 8.3 H Seg Neutrophils # Man Lymphocytes # (Manual) Monocytes # (Manual) PT D-Dimer POC ABG pO2 ABG Oxyhemoglobin ABG Sodium ABG Glucose Sodium Potassium Chloride Carbon Dioxide BUN Glucose POC Glucose Ferritin Lactate Dehydrogenase C-Reactive Protein Albumin 3.3 L Total Protein 6.1 L Arterial Blood Glucose Ur Specific [place] Coronavirus (PCR) SARS-CoV-2 IgG Ab 04/17/20 04/18/20 04/18/20 11:10 00:48 10:53 WBC MCH RDW Plt Count Lymph % (Auto) [place] % (Auto) Lymph # (Auto) [place] # (Auto) Eos # (Auto) Seg Neutrophils % Seg Neuts % (Manual) Lymphocytes % (Manual) Seg Neutrophils # Seg Neutrophils # Man Lymphocytes # (Manual) Monocytes # (Manual) PT D-Dimer POC ABG pO2 59.8 L ABG Oxyhemoglobin 88.3 L ABG Sodium 146.9 H ABG Glucose 290 H Sodium Potassium Chloride Carbon Dioxide BUN 27 H Glucose 305 H POC Glucose 211 H Ferritin Lactate Dehydrogenase C-Reactive Protein Albumin Total Protein Arterial Blood Glucose 290 H Ur Specific [place] Coronavirus (PCR) SARS-CoV-2 IgG Ab
[2020-04-18] MEDS: NORepinephrine/NS 4 MG-250 ML 4 MG/250 ML BAG IV SCH ×4 (11:50→19:30)
[2020-04-18] MEDS ORDERED: AMIODARONE 900 MG in DEXTROSE 5% IN WATER 482 ML IV SCH (12:00)
[2020-04-18] MEDS ORDERED: AMIODARONE 150 MG in DEXTROSE 5% IN WATER 97 ML IV ONE (12:00)
--- NOTE | 2020-04-18 12:30 | Procedure Note ---
Date of procedure: 04/18/20 Pre-op diagnosis: Hypotension Post-op diagnosis: same Procedure: Right Femoral Central Line Placement Emergent procedure as patient is in ICU and hypotensive. Right groin prepped and draped. Using ultrasound guidance and seldinger technique 7Fr catheter p laced in groin without difficulty with good blood return from all three ports. Dressed with biopatch and sutured in. Levo transitioned to this. Unable to place in neck as no large veins were visibly safe to engage. Anesthesia: none Surgeon: ROLDAN HERNANDEZ Estimated blood loss: none Pathology: none Condition: critical Disposition: ICU
[2020-04-18] MEDS ORDERED: VASOPRESSIN 20 UNIT in SODIUM CHLORIDE 0.9% 100 ML IV SCH (13:00)
--- NOTE | 2020-04-18 13:28 | Event Note ---
Date: 04/18/20 Called Daughter listed as next of kin in chart. She lives about 2-3 hours away. I have explained in detail the severity the clinical state. The daughter expresses understanding and wishes to come visit. I have agreed to this but explained the terms to her and she understands. She is willing to comply with our rules for her saftety as well as the patient and staff. She understands the prognosis is very guarded to poor.
[2020-04-18] MEDS ORDERED: PHENYLEPHRINE 100 MG in SODIUM CHLORIDE 0.9% 90 ML IV SCH (16:15)
[2020-04-18] MEDS ORDERED: SODIUM BICARBONATE 150 MEQ in DEXTROSE 5% IN WATER 1,000 ML IV SCH (17:00)
[2020-04-18] MEDS: OXYBUTYNIN 5 MG TAB PO SCH (19:55)
[2020-04-18] MEDS: GABAPENTIN 300 MG CAP PO SCH ×2 (19:55→19:56)
[2020-04-18] MEDS: NYSTATIN 500,000 UNIT/5 ML ORAL LIQD PO SCH ×2 (19:56→20:07)
[2020-04-18] MEDS: SODIUM CHLORIDE NASAL SPRAY 44ML NS SCH (20:03)
[2020-04-18] MEDS: DULoxetine 30 MG CAP PO SCH (20:03)
[2020-04-18] MEDS: METOPROLOL TARTRATE 25 MG TAB PO SCH (20:04)
[2020-04-18] MEDS: lamoTRIgine 100 MG TAB PO SCH (20:04)
[2020-04-18] MEDS: FAMOTIDINE 20 MG TAB PO SCH (20:04)
[2020-04-18] MEDS: MONTELUKAST 10 MG TAB PO SCH (20:05)
[2020-04-18] MEDS: ASCORBIC ACID 500 MG TAB PO SCH (20:05)
[2020-04-18] MEDS: ZINC SULFATE 220 MG CAP PO SCH (20:05)
[2020-04-18 20:20] VITALS: BP 70/33
--- NOTE | 2020-04-18 21:41 | Event Note ---
Date: 04/18/20 Called to pronounce 64-year-old female patient has been on admission for acute hypoxic respiratory failure, sepsis and pneumonia. Patient had been made DNR. Upon exam: Pupils were fixed and dilated. No response to verbal or sternal rub. Chest: No breath sounds Cardiovascular exam: No heart sounds and no peripheral pulses Abdomen: No bowel sounds Extremities: Cold and clammy Central nervous system: No reflexes Patient pronounced at 21: 08 on April 18, 2020. Daughter- Who is next of kin- Ladan Sonny notified.
--- NOTE | 2020-04-19 07:44 | Death Summary ---
Summary - Providers Date of service: 04/19/20 Consults: 03/13/20 16:44 Consult to Physician [CONS] Urgent Comment: Consulting Provider: JOSE ROSALES Physician Instructions: Reason For Exam: suspected covid 19 03/14/20 07:22 Consult to Dietitian/Nutrition [CONS] Routine Physician Instructions: Reason For Exam: Reason for Consult: diet 03/22/20 15:04 Consult to Physician [CONS] Routine Comment: Consulting Provider: NISHA FLORES Physician Instructions: Reason For Exam: continued hypoxia/covid 04/18/20 09:20 Consult to Dietitian/Nutrition [CONS] Routine Physician Instructions: Reason For Exam: Reason for Consult: Evaluate nutritional intake 04/18/20 11:29 PICC Line Insertion [Consult to PICC Line RN] [CONS] Routine Reason For Exam: New IV not working Type Line:: Midline Attending: DONNA WATTS MD - summary Date of admission: 03/13/20 17:58 Date of : 04/18/20 Reason for admission: SHORTNESS OF BREATH Significant findings: 64 YO Female with COPD, GERD, HTN, HLD, Anxiety, OA, Asthma Mild Intermittent, presents to ED for evaluation. Patient states that she has "not been feeling well" over the past 5 days with persistently worsening symptoms over the same timeframe. Patient states that she has experienced subjective fever, fatigue, muscle aches, generalized weakness, malaise, dry cough, decreased exercise tolerance, loss of sense of smell, loss of sense of taste, shortness of breath, nausea, multiple loose stools, and diminished oral intake. PT transported to [facility] via private vehicle for further care and evaluation of the aforementioned symptoms. The patient was seen and evaluated in the emergency department. All lab and imaging studies reviewed. The patient was found to be tachypneic with respiratory rate in the 30s as well as tachycardic with a pulse rate of 121, and a temperature of 101.9 F. Patient also found to have a pulse oximetry of 86% with exertion while on room air which is consistent with acute hypoxemic respiratory failure. The patient was also found to have a chest x-ray with bilateral pneumonia as well as as well as sepsis. Patient admitted to medical floor and initiated sepsis protocol. Patient also initiated on coronavirus protocol. Patient denies chills, chest pain, palpitations, productive cough, skin rash, recent ill contacts, or known exposure to COVID-19. 04/18: called this morning to evaluate patient persistent tachycardia altered mental status not following any commands on also on high flow with nonrebreather on 100%. Discussed with pulmonology from obtaining ABG. Will change to full dose anticoagulation due to elevated coagulopathy until we can rule out pulmonary embolism. Will transfer to the ICU as patient will likely need to be intubated. I placed a call to the family to update and Spoke to daughter, agrees with Intubation and if no turn around, will like to revisit goals of care. During the course of the day, the patient took a turn for the worse, the daughter came by the hospital and after evaluating her clinical condition and discussing with family the patient was made a DNR. She later and was pronounced by my colleague. Sepsis Acute hypoxemic respiratory failure Pneumonia COVID-19 virus infection Acute anoxic encephalopathy COPD (chronic obstructive pulmonary disease) GERD (gastroesophageal reflux disease) Hypertension Hyperlipidemia Anxiety
== END 2020-04-18 21:08 | DRG 871 ==
LOC: ED 14:33 → 3A 17:58 → CC1 04-18 08:22
PROVIDERS: ADMIT Internal Medicine; ATTEND Internal Medicine
PROC: 5A09357 Assistance with Respiratory Ventilation, Less than 24 Consecutive Hours, Continuous Positive Airway Pressure (ICD-10-PCS; 2020-03-19)
PROC: 5A09357 Assistance with Respiratory Ventilation, Less than 24 Consecutive Hours, Continuous Positive Airway Pressure (ICD-10-PCS; 2020-03-20)
PROC: 5A09357 Assistance with Respiratory Ventilation, Less than 24 Consecutive Hours, Continuous Positive Airway Pressure (ICD-10-PCS; 2020-03-21)
PROC: 5A09357 Assistance with Respiratory Ventilation, Less than 24 Consecutive Hours, Continuous Positive Airway Pressure (ICD-10-PCS; 2020-03-23)
PROC: 4A033R1 Measurement of Arterial Saturation, Peripheral, Percutaneous Approach (ICD-10-PCS; principal; 2020-04-18)
PROC: 0BH17EZ Insertion of Endotracheal Airway into Trachea, Via Natural or Artificial Opening (ICD-10-PCS; 2020-04-18)
PROC: 5A1935Z Respiratory Ventilation, Less than 24 Consecutive Hours (ICD-10-PCS; 2020-04-18)
PROC: 02HV33Z Insertion of Infusion Device into Superior Vena Cava, Percutaneous Approach (ICD-10-PCS; 2020-04-18)
PROC: B548ZZA Ultrasonography of Superior Vena Cava, Guidance (ICD-10-PCS; 2020-04-18)
PROC: XW033E5 Introduction of Remdesivir Anti-infective into Peripheral Vein, Percutaneous Approach, New Technology Group 5 (ICD-10-PCS; 2020-04-18)
DX: A41.89 Other specified sepsis (principal); U07.1 COVID-19; J12.82 Pneumonia due to coronavirus disease 2019; J96.21 Acute and chronic respiratory failure with hypoxia; E87.1 Hypo-osmolality and hyponatremia; J44.1 Chronic obstructive pulmonary disease with (acute) exacerbation; J44.0 Chronic obstructive pulmonary disease with (acute) lower respiratory infection; G93.1 Anoxic brain damage, not elsewhere classified; Z96.653 Presence of artificial knee joint, bilateral; K21.9 Gastro-esophageal reflux disease without esophagitis; E78.5 Hyperlipidemia, unspecified; F41.9 Anxiety disorder, unspecified; I95.9 Hypotension, unspecified; E87.6 Hypokalemia; J45.909 Unspecified asthma, uncomplicated; M19.90 Unspecified osteoarthritis, unspecified site; Z79.899 Other long term (current) drug therapy; Z66 Do not resuscitate
CPT/HCPCS: 36415; 36600; 71045; 71046; 74018; 80048; 80053; 80076; 80202; 81001; 82140; 82550; 82728; 82805; 82947; 82962; 83615; 83735; 83880; 84145; 84484; 85007; 85025; 85027; 85379; 85610; 86140; 87040; 90471; 90732; 93005; 93970; 94003; 94640; 94644; 94660; 94760; 96365; 96375; 96376; G0378; J0153; J0282; J0330; J0456; J0692; J0696; J1100; J1650; J1940; J2370; J2405; J2543; J2704; J2920; J2930; J3370; J3480; J7040; J7050; J7060; J7070; J8540; Q0162; Q0177; U0003